=== PATIENT | male | born 1985 | race Caucasian/White ===

== ENCOUNTER 2018-02-20 14:42 | Inpatient (IN) ==
[2018-02-20] MEDS ORDERED: PROCHLORPERAZINE 10 MG/2 ML INJECTION IVP ONE (15:08)
[2018-02-20] MEDS ORDERED: MORPHINE SULFATE 4mg INJECTION IVP ONE (15:08)
[2018-02-20] MEDS ORDERED: NS 1,000 ML IV ONE (15:08)
--- OUTSIDE RECORDS SUMMARY | 2018-02-20 15:23 | External Medical Summary | Referral Summary ---
:1985 Author Organization [facility] [address] [place] [address] Care Team Providers Name Role Phone Erik Donahue Primary Care Physician Encounter [facility] [id number] Date(s): 05/29/15 - 05/29/15 [facility] [address] [place] [id number]- Discharge Disposition: 01-Home or Self Care Attending Physician: Erik Donahue MD Admitting Physician: Erik Donahue MD Vital Signs No data available for this section Problem List Condition Effective Dates Status Health Status Informant Autism(Confirmed) Active Dental caries(Confirmed) Active Mental retardation(Confirmed) Active Allergies, Adverse Reactions, Alerts No Known Allergies Medications No Known Medications Results No data available for this section Immunizations Vaccine Date Refusal Reason diphtheria/pertussis, acel/tetanus ped 01/09/03 Procedures No data available for this section Social History Social History Type Response Smoking Status Never smoker Assessment and Plan Extracted from: Title: Ambulatory Patient Education Author: Erik Donahue MD Date: Home Health Care Cellulitis Cellulitis is an infection of the skin and the tissue beneath it. The infected area is usually red and tender. Cellulitis occurs most often in the arms and lower legs. CAUSES Cellulitis is caused by bacteria that enter the skin through cracks or cuts in the skin. The most common types of bacteria that cause cellulitis are staphylococci and streptococci. SIGNS AND SYMPTOMS Redness and warmth. Swelling. Tenderness or pain. Fever. DIAGNOSIS Your health care provider can usually determine what is wrong based on a physical exam. Blood tests may also be done. TREATMENT Treatment usually involves taking an antibiotic medicine. HOME CARE INSTRUCTIONS Take your antibiotic medicine as directed by your health care provider. Finish the antibiotic even if you start to feel better. Keep the infected arm or leg elevated to reduce swelling. Apply a warm cloth to the affected area up to 4 times per day to relieve pain. Take medicines only as directed by your health care provider. Keep all follow-up visits as directed by your health care provider. SEEK MEDICAL CARE IF: You notice red streaks coming from the infected area. Your red area gets larger or turns dark in color. Your bone or joint underneath the infected area becomes painful after the skin has healed. Your infection returns in the same area or another area. You notice a swollen bump in the infected area. You develop new symptoms. You have a fever. SEEK IMMEDIATE MEDICAL CARE IF: You feel very sleepy. You develop vomiting or diarrhea. You have a general ill feeling (malaise) with muscle aches and pains. MAKE SURE YOU: Understand these instructions. Will watch your condition. Will get help right away if you are not doing well or get worse. Document Released: 06/01/2006 Document Revised: 01/06/2015 Document Reviewed: 11/06/2012 [facility] Patient Information 2015 [facility]. This information is not intended to replace advice given to you by your health care provider. Make sure you discuss any questions you have with your health care provider. No follow up information was provided. Extracted from: Title: Office Visit Note Author: Erik Donahue MD Date: 05/29/15 Assessment/Plan Cellulitis Keflex 500mg po qid for ten days. The patient has family members present who are agreeable with today's plan and have no additional concerns or requests. Mom here. Ingrown toenail To Dr. MOULTON for evalation and consideration of surgery. Mental retardation This issue is stable and appropriate refills, lab, and f/ u have been discussed.
--- OUTSIDE RECORDS SUMMARY | 2018-02-20 15:23 | External Medical Summary | Referral Summary ---
:1985 Author Organization [facility] [address] [place] [address] Care Team Providers Name Role Phone Erik Donahue Primary Care Physician Encounter VC Date(s): 01/01/15 - 01/01/15 [facility] [address] [place] [address]- Discharge Diagnosis: Mental retardation Discharge Diagnosis: General medical exam Discharge Diagnosis: Dental caries Discharge Diagnosis: Autism Discharge Disposition: 01-Home or Self Care Attending [...] Patient Education Author: Erik Donahue MD Date: Dentistry Dental Caries Dental caries (also called tooth decay) is the most common oral disease. It can occur at any age, but is more common in children and young adults. HOW DENTAL CARIES DEVELOPS The process of decay begins when bacteria and foods (particularly sugars and starches) combine in your mouth to produce plaque. Plaque is a substance that sticks to the hard, outer surface of a tooth (e namel ). The bacteria in plaque produce acids that attack enamel. These acids may also attack the root surface of a tooth (cementum ) if it is exposed. Repeated attacks dissolve these surfaces and creat e holes in the tooth (cavities ). If left untreated, the acids destroy the other layers of the tooth. RISK FACTORS Frequent sipping of sugary beverages. Frequent snacking on sugary and starchy foods, especially those that easily get stuck in the teeth. Poor oral hygiene. Dry mouth. Substance abuse such as methamphetamine abuse. Broken or poor-fitting dental restorations. Eating disorders. Gastroesophageal reflux disease (GERD). Certain radiation treatments to the head and neck. SYMPTOMS In the early stages of dental caries, symptoms are seldom present. Sometimes white, chalky areas may be seen on the enamel or other tooth layers. In later stages, symptoms may include: Pits and holes on the enamel. Toothache after sweet, hot, or cold foods or drinks are consumed. Pain around the tooth. Swelling around the tooth. DIAGNOSIS Most of the time, dental caries is detected during a regular dental checkup. A diagnosis is made after a thorough medical and dental history is taken and the surfaces of your teeth are checked for signs of dental caries. Sometimes special instruments, such as lasers, are used to check for dental caries. Dental X-ray exams may be taken so that areas not visible to the eye (such as between the contact a reas of the teeth) can be checked for cavities. TREATMENT If dental caries is in its early stages, it may be reversed with a fluoride treatment or an application of a remineralizing agent at the dental office. Thorough brushing and flossing at home is needed t o aid these treatments. If it is in its later stages, treatment depends on the location and extent of tooth destruction: If a small area of the tooth has been destroyed, the destroyed area will be removed and cavities will be filled with a material such as gold, silver amalgam, or composite resin. If a large area of the tooth has been destroyed, the destroyed area will be removed and a cap (crown ) will be fitted over the remaining tooth structure. If the center part of the tooth (pulp ) is affected, a procedure called a root canal will be needed before a filling or crown can be placed. If most of the tooth has been destroyed, the tooth may need to be pulled ( extracted ). HOME CARE INSTRUCTIONS You can prevent, stop, or reverse dental caries at home by practicing good oral hygiene. Good oral hygiene includes: Thoroughly cleaning your teeth at least twice a day with a toothbrush and dental floss. Using a fluoride toothpaste. A fluoride mouth rinse may also be used if recommended by your dentist or health care provider. Restricting the amount of sugary and starchy foods and sugary liquids you consume. Avoiding frequent snacking on these foods and sipping of these liquids. Keeping regular visits with a dentist for checkups and cleanings. PREVENTION Practice good oral hygiene. Consider a dental sealant. A dental sealant is a coating material that is applied by your dentist to the pits and grooves of teeth. The sealant prevents food from being trapped in them. It may protect the teeth for several years. Ask about fluoride supplements if you live in a community without fluorinated water or with water that has a low fluoride content. Use fluoride supplements as directed by your dentist or health care provider. Allow fluoride varnish applications to teeth if directed by your dentist or health care provider. Document Released: 05/14/2003 Document Revised: 04/24/2014 Document Reviewed: 08/24/2013 [facility] Patient Information 2014 [employer] No follow up information was provided. Extracted from: Title: Office Visit Note Author: Erik Donahue MD Date: 01/01/15 Assessment/Plan Autism This issue is stable and appropriate refills, lab, and f/u have been discussed. No meds at this time. Declines consult. Mom here. No seizures. Dental caries Considerdental exam when family is willing. Mental retardation This issue is stable and appropriate refills, lab, and f/ u have been discussed. Recommended a Tdap and declined by family due to patient noncompliance/inability to understand an d comply. They would expect him to physically resist a tdap or gu exam.
--- OUTSIDE RECORDS SUMMARY | 2018-02-20 15:23 | External Medical Summary | Referral Summary ---
:1985 Author Organization [facility] [address] [place] [address] Care Team Providers Name Role Phone Erik Donahue Primary Care Physician Encounter VC Date(s): 03/25/15 - 03/25/15 [facility] [address] [place] [phone]- Discharge Disposition: 01-Home or Self Care Attending Physician: Erik Donahue MD Admitting Physician: Erik Donahue MD Vital Signs No data available for this section Problem List Condition Effective Dates Status Health Status Informant Autism(Confirmed) Active Dental caries(Confirmed) Active Mental retardation(Confirmed) Active Allergies, Adverse Reactions, Alerts No Known Allergies Medications No data available for this section Results No data available for this section Immunizations Vaccine Date Refusal Reason diphtheria/pertussis, acel/tetanus ped 01/09/03 Procedures No data available for this section Social History Social History Type Response Smoking Status Never smoker Assessment and Plan Extracted from: Title: Ambulatory Patient Education Author: Erik Donahue MD Date: [facility] Cellulitis Cellulitis is an infection of the skin and the tissue beneath it. The infected area is usually red and tender. Cellulitis occurs most often in the arms and lower legs. CAUSES Cellulitis is caused by bacteria that enter the skin through cracks or cuts in the skin. The most common types of bacteria that cause cellulitis are Staphylococcus and Streptococcus. SYMPTOMS Redness and warmth. Swelling. Tenderness or pain. Fever. DIAGNOSIS Your caregiver can usually determine what is wrong based on a physical exam. Blood tests may also be done. TREATMENT Treatment usually involves taking an antibiotic medicine. HOME CARE INSTRUCTIONS Take your antibiotics as directed. Finish them even if you start to feel better. Keep the infected arm or leg elevated to reduce swelling. Apply a warm cloth to the affected area up to 4 times per day to relieve pain. Only take mpte-[id number]-[id number] or prescription medicines for pain, discomfort , or fever as directed by your caregiver. Keep all follow-up appointments as directed by your caregiver. SEEK MEDICAL CARE IF: You notice red streaks coming from the infected area. Your red area gets larger or turns dark in color. Your bone or joint underneath the infected area becomes painful after the skin has healed. Your infection returns in the same area or another area. You notice a swollen bump in the infected area. You develop new symptoms. SEEK IMMEDIATE MEDICAL CARE IF: You have a fever. You feel very sleepy. You develop vomiting or diarrhea. You have a general ill feeling (malaise ) with muscle aches and pains. MAKE SURE YOU: Understand these instructions. Will watch your condition. Will get help right away if you are not doing well or get worse. Document Released: 06/01/2006 Document Revised: 02/20/2013 Document Reviewed: 11/06/[address] [facility] Patient Information 2014 [employer]. Ingrown Toenail An ingrown toenail occurs when the sharp edge of your toenail grows into the skin. Causes of ingrown toenails include toenails clipped too far back or poorly fitting shoes. Activities involving sudden s tops (basketball, tennis) causing "toe jamming" may lead to an ingrown nail. HOME CARE INSTRUCTIONS Soak the whole foot in warm soapy water for 20 minutes, 3 times per day. You may lift the edge of the nail away from the sore skin by wedging a small piece of cotton under the corner of the nail. Be careful not to dig ( traumatize) and cause more injury to the area. Wear shoes that fit well. While the ingrown nail is causing problems, sandals may be beneficial. Trim your toenails regularly and carefully. Cut your toenails straight across, not in a curve. This will prevent injury to the skin at the corners of the toenail. Keep your feet clean and dry. Crutches may be helpful early in treatment if walking is painful. Antibiotics, if prescribed, should be taken as directed. Return for a wound check in 2 days or as directed. Only take clso-vki-rduuubi or prescription medicines for pain, discomfort , or fever as directed by your caregiver. SEEK IMMEDIATE MEDICAL CARE IF: You have a fever. You have increasing pain, redness, swelling, or heat at the wound site. Your toe is not better in 7 days. If conservative treatment is not successful, surgical removal of a portion or all of the nail may be necessary. MAKE SURE YOU: Understand these instructions. Will watch your condition. Will get help right away if you are not doing well or get worse. Document Released: 08/19/2001 Document Revised: 11/13/2012 Document Reviewed: 08/13/2009 [facility] Patient Information 2014 [employer] [facility]. No follow up information was provided. Extracted from: Title: Office Visit Note Author: Erik Donahue MD Date: 03/25/15 Assessment/Plan Cellulitis Amox 500mg po tid for ten days. To Podiatry when willing. The patient has family members present who are agreeable with today's plan and have no additional concerns or requests. He rewith his mom. Discussed otc options for them to try. Likely will need podiatry and day surgery do to MR and inability to understand and comply. Ingrown right big toenail See above. Orders: amoxicillin, 500 mg 1 caps, Oral, TID, X 10 days, # 30 caps, 0 Refill (s), Pharmacy: [id number], 1 caps Oral TID,x10 days
--- OUTSIDE RECORDS SUMMARY | 2018-02-20 15:24 | External Medical Summary | Referral Summary ---
:1985 Author Organization [facility] [address] [place] [address] Care Team Providers Name Role Phone Erik Donahue Primary Care Physician Encounter VC Date(s): 02/28/17 - 02/28/17 [facility] [address] [place] [phone] [place] Discharge Diagnosis: Dental caries Discharge Diagnosis: Mental retardation Discharge Disposition: 01-Home or Self Care Attending Physician: Erik Donahue MD Admitting Physician: Erik Donahue MD Vital Signs Most recent to oldest [Reference Range]: 1 Blood Pressure [90-140/60-90 mmHg] 110/70 mmHg (02/28/17 9:20 AM) Problem List Condition Effective Dates Status Health Status Informant Autism(Confirmed) Active Congenital nevus of trunk(Confirmed) Active Dental caries(Confirmed) Active Mental retardation(Confirmed) Active Allergies, Adverse Reactions, Alerts No Known Allergies Medications Flagyl 500 mg oral tablet 500 mg 1 tabs, Oral, q12hr, X 10 days, # 20 tabs, 0 Refill(s), [id number], 1 tabs Oral q12hr,x10 days Start Date: 02/28/17 Stop Date: 03/10/17 Status: OrderedMisc Medication See Instructions, Currently on a/b for teeth, 0 Refill(s) Start Date: 09/30/16 Status: Ordered Results Hematology Most recent to oldest [Reference Range]: 1 WBC [4.8-10.8 10*3/uL] 7.2 10*3/uL (02/28/17 11:37 AM) RBC [4.60-6.20] 5.45 (02/28/17 11:37 AM) Hgb [14.0-18.0 gm/dL] 14.7 gm/dL (02/28/17 11:37 AM) Hct [42.0-52.0 %] 43.0 % (02/28/17:37 AM) MCV [82.0-99.0 fL] 78.9 fL *LOW* (02/28/17:37 AM) MCH [27.0-32.0 pg] 27.0 pg (02/28/17:37 AM) MCHC [32.0-36.0 gm/dL] 34.2 gm/dL (02/28/17 11:37 AM) RDW [11.5-14.5 %] 13.8 % (02/28/17:37 AM) Platelet [150-400 10*3/uL] 210 10*3/uL (02/28/17 11:37 AM) MPV [8.8-14.8 fL] 10.7 fL (02/28/17:37 AM) Immature Granulocytes [0.0-1.0 %] 0.8 % (02/28/17:37 AM) Neutrophils [51-75 %] 64 % (02/28/17:37 AM) Lymphocytes [20-46 %] 20 % (02/28/17:37 AM) Monocytes [4-11 %] 12 % *HI* (02/28/17:37 AM) Eosinophils [0-4 %] 2 % (02/28/17:37 AM) Basophils [0-2 %] 0 % (02/28/17:37 AM) Neutro Absolute [1.90-7.00] 4.65 (02/28/17 11:37 AM) Lymph Absolute [0.80-3.30] 1.48 (02/28/17 11:37 AM) [place] Absolute [0.30-1.00] 0.89 (02/28/17 11:37 AM) Eos Absolute [0.00-0.50] 0.13 (02/28/17 11:37 AM) Baso Absolute [0.00-0.20] 0.03 (02/28/17 11:37 AM) Chemistry Most recent to oldest [Reference Range]: 1 Sodium Lvl [135-144 mEq/L] 141 mEq/L (02/28/17 11:37 AM) Potassium Lvl [3.5-5.2 mEq/L] 3.4 mEq/L *LOW* (02/28/17 11:37 AM) Chloride [99-111 mEq/L] 99 mEq/L (02/28/17 11:37 AM) CO2 [23-31 mEq/L] 32 mEq/L *HI* (02/28/17 11:37 AM) AGAP [3-20 mEq/L] 10 mEq/L (02/28/17 11:37 AM) BUN [9-21 mg/dL] 12 mg/dL (02/28/17 11:37 AM) Glucose Lvl [70-99 mg/dL] 92 mg/dL (02/28/17 11:37 AM) Creatinine Lvl [0.72-1.25 mg/dL] 0.78 mg/dL (02/28/17 11:37 AM) eGFR [>60 mL/min] >60 mL/min 1 (02/28/17 11:37 AM) Calcium Lvl [8.4-10.2 mg/dL] 9.4 mg/dL (02/28/17 11:37 AM) Albumin Lvl [3.5-5.0 gm/dL] 4.1 gm/dL (02/28/17 11:37 AM) Total Protein [6.1-7.7 gm/dL] 6.5 gm/dL (02/28/17 11:37 AM) Globulin [1.8-4.0 gm/dL] 2.4 gm/dL (02/28/17 11:37 AM) ALT [0-55 U/L] 11 U/L (02/28/17 11:37 AM) AST [5-34 U/L] 14 U/L (02/28/17 11:37 AM) Alk Phos [40-150 U/L] 69 U/L (02/28/17 11:37 AM) Bili Total [0.2-1.2 mg/dL] 0.7 mg/dL (02/28/17 11:37 AM) 1Result Comment: Multiply eGFR results by 1.21 for race. Immunizations Given and Recorded Vaccine Date Status Refusal Reason diphtheria/pertussis, acel/tetanus ped 01/09/03 Recorded Procedures No data available for this section Social History Social History Type Response Smoking Status Never smoker Assessment and Plan Extracted from: Title: Ambulatory Patient Education Author: Erik Donahue MD Date: Allergy Allergies An allergy is an abnormal reaction to a substance by the body's defense system (immune system). Allergies can develop at any age. WHAT CAUSES ALLERGIES? An allergic reaction happens when the immune system mistakenly reacts to a normally harmless substance, called an allergen, as if it were harmful. The immune system releases antibodies to fight the subs tance. Antibodies eventually release a chemical called histamine into the bloodstream. The release of histamine is meant to protect the body from infection, but it also causes discomfort. An allergic reaction can be triggered by: Eating an allergen. Inhaling an allergen. Touching an allergen. WHAT TYPES OF ALLERGIES ARE THERE? There are many types of allergies. Common types include: Seasonal allergies. People with this type of allergy are usually allergic to substances that are only present during certain seasons, such as molds and pollens. Food allergies. Drug allergies. Insect allergies. Animal dander allergies. WHAT ARE SYMPTOMS OF ALLERGIES? Possible allergy symptoms include: Swelling of the lips, face, tongue, mouth, or throat. Sneezing, coughing, or wheezing. Nasal congestion. Tingling in the mouth. Rash. Itching. Itchy, red, swollen areas of skin (hives). Watery eyes. Vomiting. Diarrhea. Dizziness. Lightheadedness. Fainting. Trouble breathing or swallowing. Chest tightness. Rapid heartbeat. HOW ARE ALLERGIES DIAGNOSED? Allergies are diagnosed with a medical and family history and one or more of the following: Skin tests. Blood tests. A food diary. A food diary is a record of all the foods and drinks you have in a day and of all the symptoms you experience. The results of an elimination diet. An elimination diet involves eliminating foods from your diet and then adding them back in one by one to find out if a certain food causes an allergic reaction. HOW ARE ALLERGIES TREATED? There is no cure for allergies, but allergic reactions can be treated with medicine. Severe reactions usually need to be treated at a hospital. HOW CAN REACTIONS BE PREVENTED? The best way to prevent an allergic reaction is by avoiding the substance you are allergic to. Allergy shots and medicines can also help prevent reactions in some cases. People with severe allergic reac tions may be able to prevent a life-threatening reaction called anaphylaxis with a medicine given right after exposure to the allergen. This information is not intended to replace advice given to you by your health care provider. Make sure you discuss any questions you have with your health care provider. Document Released: 11/15/2003 Document Revised: 09/12/2015 Document Reviewed: 06/03/2015 [employer] Patient Education 2016 [employer] No follow up information was provided. Extracted from: Title: Office Visit Note Author: Erik Donahue MD Date: 02/28/17 Assessment/Plan Dental caries Saw the dentist and has improved. Diarrhea Cause unclear. Get [facility] records. Lab and stool studies pending. Trial of flagyl 500mg po bid for ten daysfor possible cdiff? The patient has family members present who are agreeable with today's plan and have no additional concerns or requests. GM agreeable. To [facility] if worse in any way. Ordered: C diff Battery CBC w/ Differential Comprehensive Metabolic Panel Ova and Parasites Stool Culture w/ Campy and Shigatoxin Urinalysis with Culture if Indicated Fever See above. Ordered: C diff Battery CBC w/ Differential Comprehensive Metabolic Panel Ova and Parasites Stool Culture w/ Campy and Shigatoxin Urinalysis with Culture if Indicated Mental retardation This issue was reviewed, appears stable, and current therapy continued except as mentioned. Appropriate lab was reviewed from the most recent appropriate entry and lab was ordered if needed in the c darvin/nursing orders, and follow up recommended generally in 90 days and no later then six months.
--- OUTSIDE RECORDS SUMMARY | 2018-02-20 15:24 | External Medical Summary | Referral Summary ---
:1985 Author Organization Via [facility] [address] [place] [address] Care Team Providers Name Role Phone Erik Donahue Primary Care Physician Encounter [facility] Date(s): 03/11/17 - 03/11/17 [facility] [address] [place] [id number] [place] Discharge Diagnosis: Autism Discharge Diagnosis: Acute UTI Discharge Diagnosis: Kidney stones Discharge Diagnosis: Dental caries Discharge Diagnosis: Acute diarrhea Discharge Diagnosis: Mental retardation Discharge Disposition: 01-Home or Self Care Attending Physician: Erik Donahue MD Admitting Physician: Erik Donahue MD Vital Signs Most recent to oldest [Reference Range]: 1 Blood Pressure [90-140/60-90 mmHg] 120/80 mmHg (03/11/17 3:47 PM) Problem List Condition Effective Dates Status Health Status Informant Autism(Confirmed) Active Congenital nevus of trunk(Confirmed) Active Dental caries(Confirmed) Active Kidney stones(Confirmed) Active Mental retardation(Confirmed) Active Allergies, Adverse Reactions, Alerts No Known Allergies Medications Misc Medication See Instructions, Currently on a/b for teeth, 0 Refill(s) Start Date: 09/30/16 Status: Ordered Results No data available for this section Immunizations Given and Recorded Vaccine Date Status [...] 11/15/2003 Document Revised: 09/12/2015 Document Reviewed: 06/03/2015 [employer] Interactive Patient Education 2016 [employer] No follow up information was provided. Extracted from: Title: Office Visit Note Author: Erik Donahue MD Date: 03/11/17 Assessment/Plan Acute diarrhea The patient's issue is nearly or completely resolved. There is no further issues or testing desired by them at this time. The patient has family members present who are agreeable with today's plan and have no additional concerns or requests. Parents are both here and say it is resolved. Acute UTI The patient's issue is nearly or completely resolved. There is no further issues or testing desired by them at this time. No urinary issues at this time. Autism This issue was reviewed, appears stable, and current therapy continued except as mentioned. Appropriate lab was reviewed from the most recent appropriate entry and lab was ordered if needed in the c darvin/nursing orders, and follow up recommended generally in 90 days and no later then six months. Dental caries The patient's issue is nearly or completely resolved. There is no further issues or testing desired by them at this time. Kidney stones The patient's issue is nearly or completely resolved. There is no further issues or testing desired by them at this time. KUB pending. Declined UA. Hydration discussed. Consult discussed and declined. He is nonverbal and without symptoms at this time and family declines further intervention. Ordered: XR Abdomen AP Mental retardation This issue was reviewed, appears stable, and current therapy continued except as mentioned. Appropriate lab was reviewed from the most recent appropriate entry and lab was ordered if needed in the c darvin/nursing orders, and follow up recommended generally in 90 days and no later then six months.
--- OUTSIDE RECORDS SUMMARY | 2018-02-20 15:24 | External Medical Summary | Referral Summary ---
:1985 Author Care Team Providers Name Role Phone Erik Donahue Primary Care Physician Encounter [facility] [id number] Date(s): 01/01/15 - 01/01/15 Via N[facility] Raman, [place], Family Medicine [address] [place] [address] [place] [id number] Discharge Diagnosis: Mental retardation Discharge Diagnosis: General medical exam Discharge Diagnosis: Dental caries Discharge Diagnosis: Autism Discharge Disposition: Home or Self Care Attending Physician: Erik Donahue [...] 05/14/2003 Document Revised: 04/24/2014 Document Reviewed: 08/24/2013 [facility] Patient Information 2014 [employer]. No follow up information was provided. Extracted [...]
--- OUTSIDE RECORDS SUMMARY | 2018-02-20 15:24 | External Medical Summary | Continuity of Care Document ---
:1985 Author Organization Via [facility] Allergies Active Description Code Type Severity Reaction Onset Reported/ Identified Relationship Clinical to Patient Status Yes No Known Aller Unknown N/A 02/14/2012 Allergies gy Yes No Known No Aller N/A N/A 02/14/2012 Allergies Known gy Aller gies Yes No Known NKMA N/A N/A 01/01/2015 Allergies Medications Medication Packaging Start Date Stop Date Route Dosage Sig 1 caps 03/25/2015 Oral 500 mg amoxicillin(mira 5 500 xicillin 500 mg mg=1 oral capsule) caps, Oral, TID, for 10 days, 30 caps, 0 Refill(s ) 1 caps 05/29/2015 Oral 500 mg cephalexin(Kefl 5 500 ex 500 mg oral mg=1 capsule) caps, Oral, QID, for 10 days, 40 caps, 0 Refill(s ) 1 francisco 10/06/2016 Topical mupirocin 7 1 topical(Bactrob francisco, an 2% Topical, topical cream) TID, for 10 days, 15 g, 0 Refill(s ) 10/06/2016 IntraMuscular 25 mg diphenhydrAMINE 7 25 (diphenhydrAMIN mg, E) IntraMus cular, Once 10/06/2016 IntraMuscular 5 mg diazepam(diazep 7 5 mg, am) IntraMus cular, Once 1 tabs 02/28/2017 Oral 500 mg metroNIDAZOLE(F 7 500 lagyl 500 mg mg=1 oral tablet) tabs, Oral, q12hr, for 10 days, 20 tabs, 0 Refill(s ) No 02/20/2018 home meds Problems Date Dx Attending Type Code Diagnosis Diagnosed By Coded 09/30/2016 Erik Donahue Final F79 Unspecified W intellectual disabilities 09/30/2016 Erik Donahue Final F84.0 Autistic disorder W 09/30/2016 Erik Donahue Final K02.9 Dental caries, W unspecified 09/30/2016 Erik Donahue Final 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 09/30/2016 Erik Donahue Final R23.8 Other skin changes W 09/30/2016 Erik Donahue Final Z91.89 Other specified W personal risk factors, not elsewhere classified 10/06/2016 Vijaya Final 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, Hetal M unspecified 10/06/2016 Vijaya Final F79 Unspecified Hetal M intellectual disabilities 10/06/2016 Vijaya Final F84.0 Autistic disorder Hetal M 10/06/2016 Vijaya Final 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 10/06/2016 Vijaya Final R23.8 Other skin changes Hetal M 11/19/2016 Erik Donahue F79 Unspecified W intellectual disabilities 11/19/2016 Erik Donahue F84.0 Autistic disorder W 11/19/2016 Erik Donahue Final K02.9 Dental caries, W unspecified 11/19/2016 Erik Donahue Final Z00.00 Encounter for W general adult medical examination without abnormal findings 02/28/2017 Erik Donahue F79 Unspecified W intellectual disabilities 02/28/2017 Erik Donahue Final K02.9 Dental caries, W unspecified 03/11/2017 Erik Donahue F79 Unspecified W intellectual disabilities 03/11/2017 Erik Donahue F84.0 Autistic disorder W 03/11/2017 Erik Donahue K02.9 Dental caries, W unspecified 03/11/2017 Erik Donahue Final N20.0 Calculus of kidney W 03/11/2017 Erik Donahue Final N39.0 Urinary tract W infection, site not specified 03/11/2017 Erik Donahue Final R19.7 Diarrhea, W unspecified Procedures Code [place] [address] Office or other 09/30/2016 outpatient visit for the evaluation and management of an established patient, which requires at least 2 of these 3 handley components: A detailed history; A detailed examination; Medical d 35140 Therapeutic, 10/06/2016 prophylactic, or diagnostic injection (specify substance or drug); subcutaneous or intramuscular 98759 Office or other 10/06/2016 outpatient visit for the evaluation and management of an established patient, which requires at least 2 of these 3 handley components: A detailed history; A detailed examination; Medical d 21810 Office or other 11/19/2016 outpatient visit for the evaluation and management of an established patient, which requires at least 2 of these 3 handley components: A detailed history; A detailed examination; Medical d 34941 Office or other 02/28/2017 outpatient visit for the evaluation and management of an established patient, which requires at least 2 of these 3 handley components: A detailed history; A detailed examination; Medical d 63506 Radiologic 03/11/2017 examination, abdomen; single anteroposterior view 10414 Office or other 03/11/2017 outpatient visit for the evaluation and management of an established patient, which requires at least 2 of these 3 handley components: A detailed history; A detailed examination; Medical d Results Test Result Range PTT/PT (INR) - 10/06/16 10:03 INR 1.0 NA 0.8-1.2 Prothrombin Time Venous seconds CBC With Platelet and Differential - 10/06/16 10:03 Absolute Basophils 0.02 10*3/uL 0.00-0.20 Absolute Eosinophils 0.10 10*3/uL 0.00-0.50 Absolute Lymphocytes 1.42 10*3/uL 0.80-3.30 Absolute Monocytes 0.55 10*3/uL 0.30-1.00 Absolute Neutrophils 2.43 10*3/uL 1.90-7.00 Basophils 0 % 0-2 Eosinophils 2 % 0-4 HCT 43.0 % 42.0-52.0 HGB 13.7 g/dL 14.0-18.0 Immature Granulocytes 0.4 % 0.0-1.0 Lymphocytes 31 % 20-46 MCH 25.0 pg 27.0-32.0 MCHC 31.9 g/dL 32.0-36.0 MCV 78.6 fL 82.0-99.0 Monocytes 12 % 4-11 MPV 10.7 fL 8.8-14.8 Neutrophils 54 % 51-75 Platelet Count 205 K/uL 150-400 RBC 5.47 10*6/uL 4.60-6.20 RDW 13.3 % 11.5-14.5 WBC 4.5 K/uL 4.8-10.8 Comprehensive Metabolic Panel (CMP) - 10/06/16 10:03 Albumin 4.6 g/dL 3.5-5.0 Alkaline Phosphatase 75 U/L 40-150 ALT (SGPT) 16 U/L 0-55 Anion Gap 10 NA 3-20 AST (SGOT) 20 U/L 5-34 Bilirubin Total 0.4 mg/dL 0.2-1.2 BUN 9 mg/dL 9-21 Calcium 9.6 mg/dL 8.9-10.5 Chloride 109 mEq/L 99-111 CO2 25 mEq/L 23-31 Creatinine 0.77 mg/dL 0.72-1.25 Globulin 2.2 g/dL 1.8-4.0 Glucose 76 mg/dL 70-99 Potassium 3.9 mEq/L 3.5-5.2 Protein 6.8 g/dL 6.1-7.7 Sodium 144 mEq/L 135-144 eGFR - 10/06/16 10:03 eGFR >60 mL/min >60 TSH with Reflex Free T4 - 10/06/16 10:03 TSH with Reflex Free T4 1.70 uIU/mL 0.35-4.94 PTT/PT (INR) - 10/06/16 10:03 INR 1.0 NA 0.8-1.2 Prothrombin Time Venous seconds CBC With Platelet and Differential - 10/06/16 10:03 Absolute Basophils 0.02 10*3/uL 0.00-0.20 Absolute Eosinophils 0.10 10*3/uL 0.00-0.50 Absolute Lymphocytes 1.42 10*3/uL 0.80-3.30 Absolute Monocytes 0.55 10*3/uL 0.30-1.00 Absolute Neutrophils 2.43 10*3/uL 1.90-7.00 Basophils 0 % 0-2 Eosinophils 2 % 0-4 HCT 43.0 % 42.0-52.0 HGB 13.7 g/dL 14.0-18.0 Immature Granulocytes 0.4 % 0.0-1.0 Lymphocytes 31 % 20-46 MCH 25.0 pg 27.0-32.0 MCHC 31.9 g/dL 32.0-36.0 MCV 78.6 fL 82.0-99.0 Monocytes 12 % 4-11 MPV 10.7 fL 8.8-14.8 Neutrophils 54 % 51-75 Platelet Count 205 K/uL 150-400 RBC 5.47 10*6/uL 4.60-6.20 RDW 13.3 % 11.5-14.5 WBC 4.5 K/uL 4.8-10.8 Comprehensive Metabolic Panel (CMP) - 10/06/16 10:03 Albumin 4.6 g/dL 3.5-5.0 Alkaline Phosphatase 75 U/L 40-150 ALT (SGPT) 16 U/L 0-55 Anion Gap 10 NA 3-20 AST (SGOT) 20 U/L 5-34 Bilirubin Total 0.4 mg/dL 0.2-1.2 BUN 9 mg/dL 9-21 Calcium 9.6 mg/dL 8.9-10.5 Chloride 109 mEq/L 99-111 CO2 25 mEq/L 23-31 Creatinine 0.77 mg/dL 0.72-1.25 Globulin 2.2 g/dL 1.8-4.0 Glucose 76 mg/dL 70-99 Potassium 3.9 mEq/L 3.5-5.2 Protein 6.8 g/dL 6.1-7.7 Sodium 144 mEq/L 135-144 eGFR - 10/06/16 10:03 eGFR >60 mL/min >60 TSH with Reflex Free T4 - 10/06/16 10:03 TSH with Reflex Free T4 1.70 uIU/mL 0.35-4.94 CBC With Platelet and Differential - 02/28/17 11:37 Absolute Basophils 0.03 10*3/uL 0.00-0.20 Absolute Eosinophils 0.13 10*3/uL 0.00-0.50 Absolute Lymphocytes 1.48 10*3/uL 0.80-3.30 Absolute Monocytes 0.89 10*3/uL 0.30-1.00 Absolute Neutrophils 4.65 10*3/uL 1.90-7.00 Basophils 0 % 0-2 Eosinophils 2 % 0-4 HCT 43.0 % 42.0-52.0 HGB 14.7 g/dL 14.0-18.0 Immature Granulocytes 0.8 % 0.0-1.0 Lymphocytes 20 % 20-46 MCH 27.0 pg 27.0-32.0 MCHC 34.2 g/dL 32.0-36.0 MCV 78.9 fL 82.0-99.0 Monocytes 12 % 4-11 MPV 10.7 fL 8.8-14.8 Neutrophils 64 % 51-75 Platelet Count 210 K/uL 150-400 RBC 5.45 10*6/uL 4.60-6.20 RDW 13.8 % 11.5-14.5 WBC 7.2 K/uL 4.8-10.8 Comprehensive Metabolic Panel (CMP) - 02/28/17 11:37 Albumin 4.1 g/dL 3.5-5.0 Alkaline Phosphatase 69 U/L 40-150 ALT (SGPT) 11 U/L 0-55 Anion Gap 10 mEq/L 3-20 AST (SGOT) 14 U/L 5-34 Bilirubin Total 0.7 mg/dL 0.2-1.2 BUN 12 mg/dL 9-21 Calcium 9.4 mg/dL 8.4-10.2 Chloride 99 mEq/L 99-111 CO2 32 mEq/L 23-31 Creatinine 0.78 mg/dL 0.72-1.25 Globulin 2.4 g/dL 1.8-4.0 Glucose 92 mg/dL 70-99 Potassium 3.4 mEq/L 3.5-5.2 Protein 6.5 g/dL 6.1-7.7 Sodium 141 mEq/L 135-144 eGFR - 02/28/17 11:37 eGFR >60 mL/min >60 CBC With Platelet and Differential - 02/28/17 11:37 Absolute Basophils 0.03 10*3/uL 0.00-0.20 Absolute Eosinophils 0.13 10*3/uL 0.00-0.50 Absolute Lymphocytes 1.48 10*3/uL 0.80-3.30 Absolute Monocytes 0.89 10*3/uL 0.30-1.00 Absolute Neutrophils 4.65 10*3/uL 1.90-7.00 Basophils 0 % 0-2 Eosinophils 2 % 0-4 HCT 43.0 % 42.0-52.0 HGB 14.7 g/dL 14.0-18.0 Immature Granulocytes 0.8 % 0.0-1.0 Lymphocytes 20 % 20-46 MCH 27.0 pg 27.0-32.0 MCHC 34.2 g/dL 32.0-36.0 MCV 78.9 fL 82.0-99.0 Monocytes 12 % 4-11 MPV 10.7 fL 8.8-14.8 Neutrophils 64 % 51-75 Platelet Count 210 K/uL 150-400 RBC 5.45 10*6/uL 4.60-6.20 RDW 13.8 % 11.5-14.5 WBC 7.2 K/uL 4.8-10.8 Comprehensive Metabolic Panel (CMP) - 02/28/17 11:37 Albumin 4.1 g/dL 3.5-5.0 Alkaline Phosphatase 69 U/L 40-150 ALT (SGPT) 11 U/L 0-55 Anion Gap 10 mEq/L 3-20 AST (SGOT) 14 U/L 5-34 Bilirubin Total 0.7 mg/dL 0.2-1.2 BUN 12 mg/dL 9-21 Calcium 9.4 mg/dL 8.4-10.2 Chloride 99 mEq/L 99-111 CO2 32 mEq/L 23-31 Creatinine 0.78 mg/dL 0.72-1.25 Globulin 2.4 g/dL 1.8-4.0 Glucose 92 mg/dL 70-99 Potassium 3.4 mEq/L 3.5-5.2 Protein 6.5 g/dL 6.1-7.7 Sodium 141 mEq/L 135-144 eGFR - 02/28/17 11:37 eGFR >60 mL/min >60 Encounters ACCT No. Visit Discharge Status Pt. Type Provider Facility Loc./Unit Complaint Date/Time [id number] 03/11/2017 03/11/2017 DIS Outpatien Martíntra, Via [facility] New FM Recheck 52 15:29:00 23:59:00 rani Garcia kidney Clinic stones [id number] 02/28/2017 02/28/2017 DIS Outpatien Rowan, Via [facility] New FM diarrhea, 76 09:04:00 23:59:00 rani Garcia fever, Clinic runned down [id number] 11/19/2016 11/19/2016 DIS Outpatien Luinstra, Via [facility] New FM dental 48 09:38:00 23:59:00 t Erik Thurman [facility] surgery [facility] clelarance [id number] 10/06/2016 10/06/2016 DIS Outpatien Hughbanks Via [facility] New FM med check 55 08:17:00 23:59:00 t Hetal [facility] [id number] 09/30/2016 09/30/2016 DIS Outpatien Luinstra, Via [facility] New FM bruises and 18 16:05:00 23:59:00 t Erik Thurman [facility] rash Clinic [id number] 05/29/2015 05/29/2015 DIS Outpatien Luinstra, Via [facility] New FM ingrown 72 09:17:00 23:59:00 t Erik Thurman [facility] toenail Clinic [id number] 03/25/2015 03/25/2015 DIS Outpatien Luinstra, Via C New FM ingrown 58 10:23:00 23:59:00 t Erik Thurman [facility] toenail Clinic [id number] 03/11/2017 03/11/2017 DIS Outpatien Luinstra, Via C New FM Recheck 52 15:29:00 23:59:00 t Erik Olman [facility] kidney Clinic stones [id number] 02/28/2017 02/28/2017 DIS Outpatien Luinstra, Via C New FM diarrhea, 76 09:04:00 23:59:00 t Erik Thurman Radha fever, Clinic runned down [id number] 11/19/2016 11/19/2016 DIS Outpatien Luinstra, Via C New FM dental 48 09:38:00 23:59:00 t Erik Thurman [facility] surgery Clinic clelarance [id number] 10/06/2016 10/06/2016 DIS Outpatien [place] Via [facility] New FM med check 55 08:17:00 23:59:00 t Hetal [facility] [id number] 09/30/2016 09/30/2016 DIS Outpatien Luinstra, Via [facility] New FM bruises and 18 16:05:00 23:59:00 t Erik Thurman Radha rash [facility] [id number] 05/29/2015 05/29/2015 DIS Outpatien Luinstra, Via [facility] New FM ingrown 72 09:17:00 23:59:00 t Erik Thurman [facility] toenail Clinic [id number] 03/25/2015 03/25/2015 DIS Outpatien Luinstra, Via [facility] New FM ingrown 58 10:23:00 23:59:00 t Erik Thurman [facility] toenail Clinic [id number] 02/09/2017 02/09/2017 DIS Emergency MAY , ED 13 13:30:00 13:51:00 RUFINA Mcmillan [id number] 09/15/2016 09/15/2016 DIS Emergency [facility] ED 20 12:14:00 14:53:00 , [facility] [id number] 02/20/2018 Document 44 14:59:00 Registrat ion [id number] 03/01/2017 Document 1752 05:17:52 Registrat ion [id number] 10/07/2016 Document 1729 05:17:29 Registrat ion [id number] 06/25/2015 Document 1809 14:18:09 Registrat ion [id number] 06/25/2015 Document 2210 13:22:10 Registrat ion
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
--- OUTSIDE RECORDS SUMMARY | 2018-02-20 15:24 | External Medical Summary | Referral Summary ---
:1985 Author Organization [facility] [place] [address] Care Team Providers Name Role Phone Andreiaana maríaErik Primary Care Physician Encounter VC Date(s): 10/06/16 - 10/06/16 [facility] [place] [address] [place] Discharge Diagnosis: Acute anxiety Discharge Diagnosis: Easy bruising Discharge Diagnosis: Autism Discharge Diagnosis: Folliculitis barbae Discharge Diagnosis: Mental retardation Discharge Disposition: 01-Home or Self Care Attending Physician: Hetal Lilly PA-C Admitting Physician: Hetal Lilly PA-C Vital Signs Most recent to oldest [Reference Range]: 1 Temperature Tympanic [36.6-38.1 degC] 36.1 degC *LOW* (10/06/16 8:19 AM) Peripheral Pulse Rate [60-100 bpm] 95 bpm (10/06/16 8:19 AM) Blood Pressure [90-140/60-90 mmHg] 112/72 mmHg (10/06/16 8:19 AM) SpO2 100 % (10/06/16 8:19 AM) Problem List Condition Effective Dates Status Health Status Informant Autism(Confirmed) Active Congenital nevus of trunk(Confirmed) Active Dental caries(Confirmed) Active Mental retardation(Confirmed) Active Allergies, Adverse Reactions, Alerts No Known Allergies Medications Bactroban 2% topical cream 1 francisco, Topical, TID, X 10 days, # 15 g, 0 Refill(s), [facility]acy: [id number] Start Date: 10/06/16 Stop Date: 10/16/16 Status: OrderedMisc Medication See Instructions, Currently on a/b for teeth, 0 Refill(s) Start Date: 09/30/16 Status: Ordered Results Hematology Most recent to oldest [Reference Range]: 1 WBC [4.8-10.8 10*3/uL] 4.5 10*3/uL *LOW* (10/06/16 10:03 AM) RBC [4.60-6.20] 5.47 (10/06/16 10:03 AM) Hgb [14.0-18.0 gm/dL] 13.7 gm/dL *LOW* (10/06/16 10:03 AM) Hct [42.0-52.0 %] 43.0 % (10/06/16 10:03 AM) MCV [82.0-99.0 fL] 78.6 fL *LOW* (10/06/16 10:03 AM) MCH [27.0-32.0 pg] 25.0 pg *LOW* (10/06/16 10:03 AM) MCHC [32.0-36.0 gm/dL] 31.9 gm/dL *LOW* (10/06/16 10:03 AM) RDW [11.5-14.5 %] 13.3 % (10/06/16 10:03 AM) Platelet [150-400 10*3/uL] 205 10*3/uL (10/06/16 10:03 AM) MPV [8.8-14.8 fL] 10.7 fL (10/06/16 10:03 AM) Immature Granulocytes [0.0-1.0 %] 0.4 % (10/06/16 10:03 AM) Neutrophils [51-75 %] 54 % (10/06/16 10:03 AM) Lymphocytes [20-46 %] 31 % (10/06/16 10:03 AM) Monocytes [4-11 %] 12 % *HI* (10/06/16 10:03 AM) Eosinophils [0-4 %] 2 % (10/06/16 10:03 AM) Basophils [0-2 %] 0 % (10/06/16 10:03 AM) Neutro Absolute [1.90-7.00] 2.43 (10/06/16 10:03 AM) Lymph Absolute [0.80-3.30] 1.42 (10/06/16 10:03 AM) [place] Absolute [0.30-1.00] 0.55 (10/06/16 10:03 AM) Eos Absolute [0.00-0.50] 0.10 (10/06/16 10:03 AM) Baso Absolute [0.00-0.20] 0.02 (10/06/16 10:03 AM) Coagulation Most recent to oldest [Reference Range]: 1 PT Venous (10/06/16 10:03 AM) INR [0.8-1.2] 1.0 1 (10/06/16 10:03 AM) PTT [25.0-35.0 seconds] 32.1 seconds (10/06/16 10:03 AM) 1Result Comment: Normal (no anticoagulant): 0.8 - 1.2 Units Routine Therapeutic Range: 2.0 - 3.0 Units High Risk Therapeutic Range: 2.5 - 3.5 UnitsChemistry Most recent to oldest [Reference Range]: 1 Sodium Lvl [135-144 mEq/L] 144 mEq/L (10/06/16 10:03 AM) Potassium Lvl [3.5-5.2 mEq/L] 3.9 mEq/L (10/06/16 10:03 AM) Chloride [99-111 mEq/L] 109 mEq/L (10/06/16 10:03 AM) CO2 [23-31 mEq/L] 25 mEq/L (10/06/16 10:03 AM) AGAP [3-20] 10 (10/06/16 10:03 AM) BUN [9-21 mg/dL] 9 mg/dL (10/06/16 10:03 AM) Glucose Lvl [70-99 mg/dL] 76 mg/dL (10/06/16 10:03 AM) Creatinine Lvl [0.72-1.25 mg/dL] 0.77 mg/dL (10/06/16 10:03 AM) eGFR [>60 mL/min] >60 mL/min 1 (10/06/16 10:03 AM) Calcium Lvl [8.9-10.5 mg/dL] 9.6 mg/dL (10/06/16 10:03 AM) Albumin Lvl [3.5-5.0 gm/dL] 4.6 gm/dL (10/06/16 10:03 AM) Total Protein [6.1-7.7 gm/dL] 6.8 gm/dL (10/06/16 10:03 AM) Globulin [1.8-4.0 gm/dL] 2.2 gm/dL (10/06/16 10:03 AM) ALT [0-55 U/L] 16 U/L (10/06/16 10:03 AM) AST [5-34 U/L] 20 U/L (10/06/16 10:03 AM) Alk Phos [40-150 U/L] 75 U/L (10/06/16 10:03 AM) Bili Total [0.2-1.2 mg/dL] 0.4 mg/dL (10/06/16 10:03 AM) TSH with Reflex Free T4 [0.35-4.94] 1.70 (10/06/16 10:03 AM) 1Result Comment: Multiply eGFR results by 1.21 for race. Immunizations Given and Recorded Vaccine Date Status Refusal Reason diphtheria/pertussis, acel/tetanus ped 01/09/03 Recorded Procedures No data available for this section Social History Social History Type Response Smoking Status Never smoker Assessment and Plan Extracted from: Title: Office Visit Note- Anxiety with Author: Hetal Lilly PA-C Date : 10/06/16 lab Assessment/Plan Acute anxiety In order to have lab work done, he is requiring more sedation than PO Ativan. Pt was given Valium 5mg IM and Benadryl 25mg IM in clinic per Dr. Donahue's recommendation. After waiting about 30 minut es, laborer was able to successfully draw his lab in the clinic room. Pt tolerated this very well. Ordered: Office Visit Level 4 Est 43257 Autism Is not allowing for lab to be done without sedation. See above. Ordered: Office Visit Level 4 Est 78454 Easy bruising Need to further evaluate with labs. Dr. Donahue has ordered CBC, PT/PTT, TSH, and CMP. Ordered: Office Visit Level 4 Est 40238 Folliculitis barbae I'm not sure if he will tolerate taking oral abx at this time.Will first try Bactroban ointmentto the area, and try to avoid shaving for now. Call or RTC if not resolving or worsening. Ordered: mupirocin topical, 1 francisco, Topical, TID, X 10 days, # 15 g, 0 Refill(s), Pharmacy: [id number] Office Visit Level 4 Est 74405 Mental retardation Is not allowing for lab to be done without sedation. See above. Ordered: Office Visit Level 4 Est 33732
--- OUTSIDE RECORDS SUMMARY | 2018-02-20 15:24 | External Medical Summary | Referral Summary ---
:1985 Author Organization [facility] [place] [address] Care Team Providers Name Role Phone Erik Donahue Primary Care Physician Encounter VC Date(s): 05/29/15 - 05/29/15 [facility] [place] [address]- Discharge Disposition: 01-Home or Self Care Attending Physician: Erik Donahue MD Admitting Physician: Erik Donahue MD Vital Signs No data available for this section Problem List Condition Effective Dates Status Health Status Informant Autism(Confirmed) Active Dental caries(Confirmed) Active Mental retardation(Confirmed) Active Allergies, Adverse Reactions, Alerts No Known Allergies Medications Keflex 500 mg oral capsule 500 mg 1 caps, Oral, QID, X 10 days, # 40 caps, 0 Refill(s), Pharmacy: [id number], 1 caps Oral QID,x10 days Start Date: 05/29/15 Stop Date: 06/08/15 Status: Ordered Results No data available for [...] 06/01/2006 Document Revised: 01/06/2015 Document Reviewed: 11/06/2012 [facility] Patient Information 2015 [employer] [facility] Campus[facility]mentra. This information is not intended to replace [...]
--- OUTSIDE RECORDS SUMMARY | 2018-02-20 15:24 | External Medical Summary | Referral Summary ---
:1985 Author Organization [facility] [place] [address] Care Team Providers Name Role Phone Erik Donahue Primary Care Physician Encounter VC Date(s): 11/19/16 - 11/19/16 [facility] [place] [address]- Discharge Diagnosis: Autism Discharge Diagnosis: Mental retardation Discharge Diagnosis: Dental caries Discharge Diagnosis: Adult general medical exam Discharge Disposition: 01-Home or Self Care Attending Physician: Erik Donahue MD Admitting Physician: Erik Donahue MD Vital Signs Most recent to oldest [Reference Range]: 1 Blood Pressure [90-140/60-90 mmHg] 118/60 mmHg (11/19/16 9:58 AM) Problem List Condition Effective Dates Status [...] tooth may need to be pulled ( extracted). HOME CARE INSTRUCTIONS You can prevent, stop, [...] care provider. Document Released: 05/14/2003 Document Revised: 08/02/2016 Document Reviewed: 08/24/2013 [employer] Interactive Patient Education 2016 [employer] No follow up information was provided. Extracted from: Title: Office Visit Note Author: Erik Donahue MD Date: 11/19/16 Assessment/Plan Adult general medical exam Forms completed. No Surgical restrictions needed at this time. Autism This issue was reviewed, appears stable, and current therapy continued except as mentioned. Appropriate lab was reviewed from the most recent appropriate entry and lab was ordered if needed in the c darvin/nursing orders, and follow up recommended generally in 90 days and no later then six months. Dental caries See above. Dentalcleaning pending. Mental retardation This issue was reviewed, appears stable, and current therapy continued except as mentioned. Appropriate lab was reviewed from the most recent appropriate entry and lab was ordered if needed in the c darvin/nursing orders, and follow up recommended generally in 90 days and no later then six months. The patient has family members present who are agreeable with today's plan and have no additional concerns or requests. Mother here.
--- OUTSIDE RECORDS SUMMARY | 2018-02-20 15:24 | External Medical Summary | Referral Summary ---
:1985 Author Organization [facility] [place] [address] Care Team Providers Name Role Phone Erik Donahue Primary Care Physician Encounter VC Date(s): 05/29/15 - 05/29/15 [facility] [place] [address]- Discharge Disposition: 01-Home or Self Care Attending [...] days, # 40 caps, 0 Refill(s), Pharmacy: [id number], 1 caps Oral QID,x10 days Start Date: [...] 06/01/2006 Document Revised: 01/06/2015 Document Reviewed: 11/06/2012 [facility] [place] Patient Information 2015 [facility] [place]M[facility] [employer] ([employer] This information is not intended to replace [...]
[2018-02-20] MEDS: SALINE FLUSH 10ml SYRINGE IVF PRN ×3 (15:28→18:14)
[2018-02-20] MEDS ORDERED: IOHEXOL 300mg/ml 100ml INJECTION ONE (16:02)
[2018-02-20] MEDS ORDERED: SALINE FLUSH 10ml SYRINGE ONE (16:02)
--- NOTE | 2018-02-20 16:30 | CT Scan Report ---
EXAM: CT abdomen pelvis w con DATE: 02/20/2018 3:08 PM ENCOUNTER: Initial INDICATION: abd pain COMPARISON: None available. TECHNIQUE: CT of the abdomen and pelvis with IV contrast. The patient received 89.2 mL of Omnipaque 300 without complication. Coronal and sagittal reformatted images were performed. The current CT scan was performed using radiation dose-reduction techniques. FINDINGS: Lower Chest: The visualized portions of the lower lungs are well aerated. No focal airspace disease. The heart is normal in size without pericardial effusion. Abdomen: No intraperitoneal free air. No intra-abdominal free fluid or fluid collections. No lymphadenopathy. Liver: The liver enhances homogeneously without focal masses. Gallbladder and biliary: The gallbladder appears normal. No biliary ductal dilatation. Spleen: The spleen appears normal. Pancreas: The pancreas demonstrates homogeneous attenuation. Adrenal glands: The adrenal glands are normal in size and attenuation. Kidneys/ureters: The kidneys appear normal. The ureters are normal in course and caliber. GI tract: The stomach and small bowel appear grossly normal. There is severe fecal impaction/obstipation of the rectum and left colon. Moderate colonic gas and stool within the transverse and right colon. The appendix is not seen with certainty however no pericecal inflammatory changes seen to suggest acute appendicitis. Vascular structures: The aorta is normal in course and caliber. The mesenteric arterial and venous structures appear patent. Pelvis: No pelvic free fluid. No pelvic lymphadenopathy. Bladder: The bladder is displaced to the right anterolaterally from the large amount of fecal stool but appears otherwise normal. Genital system: The prostate and seminal vesicles appear grossly normal. Skeletal structures and soft tissues: The visualized skeletal structures are grossly normal. IMPRESSION: 1. Severe fecal impaction/obstipation with a large amount of stool within the rectum and left colon. 2. Stool filled rectosigmoid colon displaces the bladder anteriorly and to the right. 3. Moderate gas and stool within the transverse and right colon. .
--- NOTE | 2018-02-20 16:59 | Emergency Department Report ---
General Adult HPI - General Chief complaint: Medical Emergency Stated complaint: not eating, stomach hard, not feeling well Time Seen by Provider: 02/20/18 14:58 - History of Present Illness HPI narrative: 32-year-old male brought in from [facility] with abdominal pain. Apparently abdominal pain began yesterday and has increased throughout today. Staff is concerned that he is is not eating and suffering with abdominal pain. He had elevated temperature today, documented at 99.9 on arrival. He has been holding his abdomen. His parents have DPOA and are somewhat hesitant to have him seen at the hospital. - Related Data Home Medications Medication Instructions Recorded Confirmed No known Home medications [No home 02/20/18 02/20/18 meds] Allergies Allergy/AdvReac Type Severity Reaction Status Date / Time No Known Allergies Allergy Verified 02/20/18 14:54 Review of Systems All systems: reviewed and negative except as stated PFSH Patient Stated Medical History Other Behavioral Health Yes: AUTISM Surgical History: Denies any PSH - Social History Smoking status: Never smoker Substance use type: does not use Alcohol intake frequency: does not drink Physical Exam - Limitations Limitations: altered mental status - General General appearance: alert - Normal Exams: Head:: Normocephalic without trauma Chest/Respirations:: Clear all graves, with good airflow, and symmetry bilaterally Cardiovascular:: Regular rate and rhythm, without murmur or gallop, Pulses 2+ all extremities, capillary refill, <2 seconds all extremities Neurological:: Patient is alert, cranial nerves, motor/sensory/cerebellar, exams w/o gross deficits, to observation - Abdominal Exam Abdominal exam: Present: distention, guarding, rigidity, hypoactive bowel sounds. Absent: rebound Course Vital Signs Temperature 99.9 F 02/20/18 14:45 Pulse Rate 140 H 02/20/18 14:45 Respiratory Rate 20 02/20/18 14:45 Blood Pressure 136/86 02/20/18 14:45 Pulse Oximetry 100 02/20/18 14:45 Temperature 99.9 F 02/20/18 14:45 Pulse Rate 131 H 02/20/18 16:43 Respiratory Rate 19 02/20/18 16:44 Blood Pressure 126/79 02/20/18 16:43 Pulse Oximetry 99 02/20/18 16:43 Medical Decision Making - [facility] Narrative Medical decision making narrative: Patient had IV started with 1 L normal saline bolus. Labs obtained showing white count of greater than 14 with hemoglobin of 7. CT abdomen obtained due to potential for surgical abdomen on exam. CT shows megacolon with significant distention of the colon and portions of small bowel. Spoke with general surgery and patient recommended to be admitted to hospitalist service with Gastrografin enema for both diagnostic and possible therapeutic effect as well as neostigmine tomorrow if needed. I spoke with the patient's father and mother. They were unhappy that he had been brought over here without her permission, but were very cooperative with the fact that he was sick and needed treatment. They are supportive of him being admitted to the hospital at this time and understand the plan of care. This was discussed with Dr. Stevens who is admitting the patient for hospitalist service. - Differential Diagnosis dehydration, constipation, perforated bowel, appendicitis - Lab Data Lab results reviewed: Yes: I reviewed the patient's lab results. Result diagrams: 02/20/18 15:25 02/20/18 15:25 Lab Results 02/20/18 02/20/18 02/20/18 Range/Units 14:58 15:06 15:25 WBC 14.4 H (4.5-11.0) T/MM3 RBC 4.19 L (4.50-5.90) M/MM3 Hgb 7.5 L (13.5-17.5) GM/DL Hct 27.4 L (41-53) % MCV 65.4 L (80-100) UM3 MCH 17.9 L (26-34) UUG MCHC 27.4 L (31-37) GM/DL RDW Std Deviation 36.7 L (36.9-50.2) FL Plt Count 363 (130-400) T/MM3 MPV 9.4 (9.4-12.4) UM3 Immature Gran % (Auto) 0.2 (0.0-0.5) % Neut % (Auto) 73.3 H (33-66) % Lymph % (Auto) 15.3 L (23-45) % Mccreary % (Auto) 10.3 H (0-9.0) % Eos % (Auto) 0.6 (0-4) % Baso % (Auto) 0.3 (0-2) % Neut # (Auto) 10.5 H (1.8-7.7) T/MM3 Lymph # (Auto) 2.2 (1-4.8) T/MM3 Mccreary # (Auto) 1.5 H (0-0.8) T/MM3 Eos # (Auto) 0.1 (0-0.5) T/MM3 Baso # (Auto) 0.1 (0-0.2) T/MM3 Abs Immat Gran (auto) 0.03 (0.00-0.03) T/MM3 Turbidity (0-20) Sodium (136-146) MEQ/L Potassium (3.6-5) MEQ/L Chloride (98-107) MEQ/L Carbon Dioxide (22-30) MEQ/L Anion Gap (5-15) meq/L BUN (9-20) MG/DL Creatinine (0.8-1.5) mg/dL GFR Calculation BUN/Creatinine Ratio (6-26) RATIO Glucose (75-110) MG/DL Glucometer 110 (65-110) mg/dL Calculated Osmolality (261-280) MOSM/KG Calcium (8.4-10.2) MG/DL Total Bilirubin (0.20-1.30) MG/DL Icterus Index (0-7) AST (17-59) U/L ALT (1-50) U/L Alkaline Phosphatase (38-126) U/L Total Protein (6.3-8.2) g/dL Albumin (3.5-5.0) g/dL Globulin (2.4-3.6) G/DL Albumin/Globulin Ratio (1.1-2.2) RATIO Lipase (23-300) U/L Plasma Lactate (0.6-2.2) MMOL/L Specimen Hemolysis (0-25) Ur Collection Type Urine, void-cc/notcc Urine Color Yellow (YELLOW) Urine Clarity Clear Urine pH 6.0 (5.0-8.0) Ur Specific Joshua 1.025 (1.015-1.025) Urine Protein Negative (NEGATIVE) Urine Glucose (UA) Negative (NEGATIVE) Urine Ketones Negative (NEGATIVE) Urine Occult Blood Negative (NEGATIVE) Urine Nitrate Negative (NEGATIVE) Urine Bilirubin Negative (NEGATIVE) Urine Urobilinogen 0.2 (NORMAL) EU/DL Ur Leukocyte Esterase Negative (NEGATIVE) Urinalysis Comment Microscopic not ind. 06/18/18 Range/Units 15:25 WBC (4.5-11.0) T/MM3 RBC (4.50-5.90) M/MM3 Hgb (13.5-17.5) GM/DL Hct (41-53) % MCV (80-100) UM3 MCH (26-34) UUG MCHC (31-37) GM/DL RDW Std Deviation (36.9-50.2) FL Plt Count (130-400) T/MM3 MPV (9.4-12.4) UM3 Immature Gran % (Auto) (0.0-0.5) % Neut % (Auto) (33-66) % Lymph % (Auto) (23-45) % Mccreary % (Auto) (0-9.0) % Eos % (Auto) (0-4) % Baso % (Auto) (0-2) % Neut # (Auto) (1.8-7.7) T/MM3 Lymph # (Auto) (1-4.8) T/MM3 Mccreary # (Auto) (0-0.8) T/MM3 Eos # (Auto) (0-0.5) T/MM3 Baso # (Auto) (0-0.2) T/MM3 Abs Immat Gran (auto) (0.00-0.03) T/MM3 Turbidity < 20 (0-20) Sodium 144 (136-146) MEQ/L Potassium 4.3 (3.6-5) MEQ/L Chloride 103 (98-107) MEQ/L Carbon Dioxide 25 (22-30) MEQ/L Anion Gap 16 H (5-15) meq/L BUN 15.0 (9-20) MG/DL Creatinine 0.7 L (0.8-1.5) mg/dL GFR Calculation 132 BUN/Creatinine Ratio 21 (6-26) RATIO Glucose 109 (75-110) MG/DL Glucometer (65-110) mg/dL Calculated Osmolality 279 (261-280) MOSM/KG Calcium 9.6 (8.4-10.2) MG/DL Total Bilirubin 0.60 (0.20-1.30) MG/DL Icterus Index < 2 (0-7) AST 17 (17-59) U/L ALT 11 (1-50) U/L Alkaline Phosphatase 82 (38-126) U/L Total Protein 8.1 (6.3-8.2) g/dL Albumin 4.9 (3.5-5.0) g/dL Globulin 3.2 (2.4-3.6) G/DL Albumin/Globulin Ratio 1.5 (1.1-2.2) RATIO Lipase 21 L (23-300) U/L Plasma Lactate 2.5 H (0.6-2.2) MMOL/L Specimen Hemolysis < 15 (0-25) Ur Collection Type Urine Color (YELLOW) Urine Clarity Urine pH (5.0-8.0) Ur Specific Joshua (1.015-1.025) Urine Protein (NEGATIVE) Urine Glucose (UA) (NEGATIVE) Urine Ketones (NEGATIVE) Urine Occult Blood (NEGATIVE) Urine Nitrate (NEGATIVE) Urine Bilirubin (NEGATIVE) Urine Urobilinogen (NORMAL) EU/DL Ur Leukocyte Esterase (NEGATIVE) Urinalysis Comment - Radiology Data Radiology results reviewed: Yes: I reviewed the patient's radiology results. Disposition Clinical Impression: Megacolon, Dehydration Disposition: 02 To [facility] Acute Care Condition: Stable Prescriptions: No Action No known Home medications [No home meds] 0 #0 [facility]: Primary Care,You Choose [Primary Care Provider] - Time of Disposition: 17:08 - Seen By: physician
[2018-02-20] MEDS: PIPERACILLIN/TAZOBACTAM 3.375 GM in NS 100 ML IV SCH ×2 (17:26→23:09)
[2018-02-20] MEDS: 1/2 NS 1,000 ML IV SCH (18:02)
[2018-02-20] MEDS: PANTOPRAZOLE 40 MG INJECTION IVP SCH (18:14)
--- NOTE | 2018-02-20 18:22 | History & Physical Report ---
History of Present Illness Date: 02/20/18 Chief complaint: Abdominal pain HPI: Arslan Albright is a 32 y/o male with autism and a hx of toxic megacolon. Per report , this morning he woke up with abdominal pain and didn't want to eat anything - this was unusual for Arslan. He was incontinent of urine and stool, also atypical for him. There were no reports of fever/chills, n/v. Every ROS asked of Arslan was positive. He was sent to the ED, CT scan showed: "1. Severe fecal impaction/obstipation with a large amount of stool within the rectum and left colon. 2. Stool filled rectosigmoid colon displaces the bladder anteriorly and to the right. 3. Moderate gas and stool within the transverse and right colon." WBC was elevated at 14.4, and he was anemic with hgb of 7.5. Lactate was elevated at 2.5. UA was neg. He received a liter of NS and zosyn was initiated. He received morphine for pain. He was tachycardic with rates up to 156 - after 1L IVF his rate improved to the 130s. BP was stable. He was afebrile. Dr. Stevens was notified and the patient was admitted to inpatient status, placed in the CCU. Review of Systems ROS unobtainable: due to mental status (Every ROS question was positive) Past Medical History Medical History Updates: Autism. Dental problems Surgical History: Left great toe partial nale plate removal 2011. Dental surgery Family History Updates: Parents are healthy. Paternal grandfather of pancreatic cancer. A few people on maternal side also had cancer. Family History: As Above - Social History Smoking status: Never smoker Substance use type: does not use Alcohol intake frequency: does not drink Medications Home Medications Medication Instructions Recorded Confirmed Type No known Home medications [No home 02/20/18 02/20/18 History meds] Allergies Allergy/AdvReac Type Severity Reaction Status Date / Time No Known Allergies Allergy Verified 02/20/18 14:54 Exam Vital Signs: Temperature 99.9 F 02/20/18 14:45 Pulse Rate 140 H 02/20/18 17:49 Respiratory Rate 25 H 02/20/18 17:49 Blood Pressure 131/80 02/20/18 17:49 Pulse Oximetry 100 02/20/18 17:49 Telemetry Rhythm: Sinus Tachycardia Height/Weight/BMI: Height 1.75 m Weight 69.2 kg Body Mass Index 22.5 - Constitutional Present: no acute distress, well nourished, well developed - Routine HEENT Exam Eye: Present: PERRL. Absent: conjunctival icterus, scleral injection ENT: Present: mucous membranes moist, oropharynx clear - Routine Neck Exam Present: supple, lymphadenopathy - Routine Respiratory Exam Present: CTA bilaterally - Routine Cardiovascular Exam Present: RRR, S1, S2, tachycardia - Routine Abdominal Exam Present: tenderness (diffusely), distended. Absent: normoactive bowel sounds ( hypoactive) - Routine Extremities Exam Present: no edema Comments: mild superficial abrasions to lower ext - pt unsure of cause - Routine Skin Exam Present: intact, dry, warm - Routine Neurological Exam Present: alert, moving all extremities, vision grossly intact. Absent: facial asymmetry - Routine Psychiatric Exam Present: normal affect Results - Labs CBC & Chem 7: 02/20/18 15:25 02/20/18 15:25 Assessment and Plan Assessment and Plan: Assessment Toxic megacolon R/O severe sepsis - tachycardia, leukocytosis, lactate 2.5 Severe microcytic anemia with hgb of 7.5 Autism Dental problems Plan Admit, CCU. Bowel rest - NPO. Cont IVF - 1/2 NS with Na of 144. Consult Dr. Gomez for mgt. Sx management with protonix, morphine, zofran. Cont IVF for tachycardia; sepsis. Repeat lactate. Cont Zosyn for bowel coverage. Follow BC results. Iron w/u in progress. Type & screen ordered. D/W with Dr. Stevens and RN. PCP - Dr. Donahue. DVT Prophylaxis: SCD's GI Prophylaxis: Protonix Resuscitation Status: Full Code - Physician Narrative Physician: Daniel Stevens MD Narrative: Date: 02/20/18 Time: 1899 Have independently interviewed and examined pt. Chart reviewed. Case discussed with ED physician and my [employer] INSPECTOR. Care plan developed with my supervision; agree with above. Present to ED from [facility] for abdominal evaluation. Refused to eat today, which is unusual for him as he typically eats well. Staff noted his ab much more distended. Pt had incontinence of bowel and bladder. More restless and refusing care. Obtaining history from patient not possible secondary to this Autism. In ED, HR elevated. WBC elevated. CT showed evidence of toxic megacolon. With patient's symptoms is admitted to [facility] CCU for care and support. Lungs: clear bilaterally CV: tachy, regular AB: distended. BS not present EXT : thin Plan: Inpatient admission to [facility]. Zosyn for antimicrobial coverage. IVF for volume support. NPO for bowel rest; consult with Dr Gomez for surgical opinion and treatment options. With HGB low, check iron/ferritin-will type and screen as likely need transfusion. SCD for DVT protection. Protonix for GI protection. Monitor lab. Care to return to Dr Donahue at time of discharge from [facility]. Hospital Course Summary Disclaimer: The visit summary below is not to be considered part of the above Progress Note. Hospital Course: 02/20/18 Admit, CCU. Bowel rest - NPO. Cont IVF - 1/2 NS with Na of 144. Consult Dr. Gomez for mgt. Sx management with protonix, morphine, zofran. Cont IVF for tachycardia; sepsis. Repeat lactate. Cont Zosyn for bowel coverage. Follow BC results. Iron w/u in progress. Type & screen ordered. D/W with Dr. Stevens and RN.
--- NOTE | 2018-02-20 19:01 | General Surgery Consult Note ---
Consult date: 02/20/18 Attending Physician: Daniel Stevens MD [facility] Patient Stated Medical History Other Behavioral Health Yes: AUTISM Medical History Updates: Autism. Dental problems Surgical History: Left great toe partial nale plate removal 2011. Dental surgery Family History Updates: Parents are healthy. Paternal grandfather of pancreatic cancer. A few people on maternal side also had cancer. - Social History Smoking status: Never smoker Substance use type: does not use Alcohol intake frequency: does not drink Medications Home Medications Medication Instructions Recorded Confirmed Type No known Home medications [No home 02/20/18 02/20/18 History meds] Allergies Allergy/AdvReac Type Severity Reaction Status Date / Time No Known Allergies Allergy Verified 02/20/18 14:54 Review of Systems 10-point ROS: not fully reviewed (his cognitive handicap made answers unreliable ) - Gastrointestinal Gastrointestinal: Present: other (poor appetite, and fecal incontinence today) - Genitourinary Additional comments: urinary incontinence this morning. - Vital Signs Last Vital Signs Temp 99.9 F 02/20/18 14:45 Pulse 125 H 02/20/18 18:42 Resp 25 H 02/20/18 17:49 BP 131/80 02/20/18 17:49 Pulse Ox 100 02/20/18 17:49 - Laboratory Result Diagrams: 02/20/18 15:25 02/20/18 15:25
[2018-02-21] MEDS: 1/2 NS 1,000 ML IV SCH ×3 (02:33→16:27)
[2018-02-21] MEDS: PIPERACILLIN/TAZOBACTAM 3.375 GM in NS 100 ML IV SCH ×4 (04:54→22:30)
[2018-02-21] MEDS ORDERED: NS FLUSH BAG 500ml IV PRN (05:12)
--- NOTE | 2018-02-21 08:51 | General Surgery Progress Note ---
Subjective Narrative: Mcdermott cath placed during the night which gave some relief of abd pain. Abd somewhat softer today than yesterday and he is having smear and small soft stools. - Vital Signs Last Vital Signs Temp 98.3 F 02/21/18 04:00 Pulse 104 H 02/21/18 08:32 Resp 21 02/21/18 05:00 BP 110/55 02/21/18 06:00 Pulse Ox 97 02/21/18 05:00 - Laboratory Result Diagrams: 02/22/18 04:58 02/22/18 04:58 - Microbiogy Microbiology 02/20/18 20:07 Peripheral/Iv Start Blood Culture - Preliminary Culture Initiated - Results Pending - Pathology CT abd: GI tract: The stomach and small bowel appear grossly normal. There is severe fecal impaction/obstipation of the rectum and left colon. Moderate colonic gas and stool within the transverse and right colon. The appendix is not seen with certainty however no pericecal inflammatory changes seen to suggest acute appendicitis. Vascular structures: The aorta is normal in course and caliber. The mesenteric arterial and venous structures appear patent. Pelvis: No pelvic free fluid. No pelvic lymphadenopathy. Bladder: The bladder is displaced to the right anterolaterally from the large amount of fecal stool but appears otherwise normal. Genital system: The prostate and seminal vesicles appear grossly normal. Skeletal structures and soft tissues: The visualized skeletal structures are grossly normal. IMPRESSION: 1. Severe fecal impaction/obstipation with a large amount of stool within the rectum and left colon. 2. Stool filled rectosigmoid colon displaces the bladder anteriorly and to the right. 3. Moderate gas and stool within the transverse and right colon. - Abnormal Exam General: other (impared cognitive function, chronic. Mother present and helpful with questions.) Abdominal: hypoactive bowel sounds, firm (but less than yesterday), distended, tender (slightly, again, less than yesterday), other (digital exam revealed large firm mass about 4 cm from anal verge, able to "scrape" off what feels like stool with sweeping motion of my finger, not able to get finger around the back side of the fecalith) - Normal Exam General: awake, alert Cardiovascular: regular rhythm, regular rate (tachy 110's this morning) Respiratory: clear bilaterally, no labored breathing Abdominal: other (soft dark brown stool in depends, rectal exam revealed large firm ball of stool about 4-5 cm from anal verge, able to "scrape" stool off the outer portion. Unable to get finger around the stool) Assessment and Plan (1) Impaction of colon Current Visit: Yes Status: Acute (2) Megacolon Current Visit: Yes Status: Acute Plan: Rectal exam indicates presence of fecal impaction, consistent with CT findings. Unable to get finger around the stool to dislodge it. Dr. Gomez orders Gastrografin enema for both therapeutic and diagnostic benefit. Hospital Course Summary Disclaimer: The visit summary below is not to be considered part of the above Progress Note. Hospital Course: 02/20/18 Admit, CCU. Bowel rest - NPO. Cont IVF - 1/2 NS with Na of 144. Consult Dr. Gomez for mgt. Sx management with protonix, morphine, zofran. Cont IVF for tachycardia; sepsis. Repeat lactate. Cont Zosyn for bowel coverage. Follow BC results. Iron w/u in progress. Type & screen ordered. D/W with Dr. Stevens and RN.
[2018-02-21] MEDS ORDERED: DIATRIZOATE MEGLUMINE/SOD. (66%/10%) 120ml SOLN ONE (09:44)
--- NOTE | 2018-02-21 11:21 | Progress Note ---
- Date 02/21/18 Subjective: No AE per nursing staff. Having very small smears of stool. +flatus. Has remained afebrile. No N/V/CP/SOB. Has a hx of prior episodes of constipation, and isn't on any meds to prevent constipation at home. Per surgery, planning on gastrograffin enema today. Objective Vital signs: Temperature 98.3 F 02/21/18 04:00 Pulse Rate 104 H 02/21/18 08:32 Respiratory Rate 21 02/21/18 05:00 Blood Pressure 110/55 02/21/18 06:00 Pulse Oximetry 97 02/21/18 05:00 Height/Weight/BMI: Height 5 ft 9 in Weight 70.6 kg Body Mass Index 22.5 - Constitutional Present: no acute distress, well developed - Routine HEENT Exam Head: Present: normocephalic, atraumatic Eye: Present: EOMI, PERRL ENT: Present: mucous membranes moist, oropharynx clear, external ear normal - Routine Respiratory Exam Present: CTA bilaterally. Absent: wheezes, crackles - Routine Cardiovascular Exam Present: RRR. Absent: murmur, gallop, rubs - Routine Abdominal Exam Present: soft, non distended, non tender. Absent: organomegaly Comments: Hypoactive bowel sounds. - Routine Extremities Exam Present: full ROM, normal capillary refill. Absent: cyanosis, edema - Routine Skin Exam Present: intact, dry. Absent: jaundice, rash - Routine Neurological Exam Present: alert, CN II-XII intact, moving all extremities (5/5 strength). Absent : altered mental status At baseline mental status - Routine Psychiatric Exam Absent: depressed, anxious Results - Labs CBC & Chem 7: 02/21/18 10:12 02/21/18 04:11 Microbiology Results: Microbiology 02/20/18 20:07 Peripheral/Iv Start Blood Culture - Preliminary Culture Initiated - Results Pending Assessment and Plan Assessment and Plan: Assessment Severe constipation R/O severe sepsis - tachycardia, leukocytosis, lactate 2.5 Severe microcytic anemia with hgb of 7.5 Autism Dental problems Plan Severe constipation: Gastrograffin enema today, diagnostic for obstruction and therapeutic. Given question of toxic megacolon with tachycardia, Dr. Gomez consulted. Cont abx for now. Microcytic anemia: PIPER or thallasemia. Await iron studies. Hgb 6.6 today, transfusing 1 unit PRBCs. Sinus Tachycardia: Gradually improving with IVF admin, continue. FEN: Cont 1/2 NS. NPO for now. Proph: SCDs. Proph: Await improvement in severe constipation. - Physician Narrative Narrative: Date: 02/21/18 Time: 1117 Hospital Course Summary Disclaimer: The visit summary below is not to be considered part of the above Progress Note. Receiving gastrograffin enema Hospital Course: 02/20/18 Admit, CCU. Bowel rest - NPO. Cont IVF - 1/2 NS with Na of 144. Consult Dr. Gomez for mgt. Sx management with protonix, morphine, zofran. Cont IVF for tachycardia; sepsis. Repeat lactate. Cont Zosyn for bowel coverage. Follow BC results. Iron w/u in progress. Type & screen ordered. D/W with Dr. Stevens and RN. 02/21: Gastrograffin enema today, diagnostic for obstruction and therapeutic. Given question of toxic megacolon with tachycardia, Dr. Gomez consulted. Microcytic anemia: PIPER or thallasemia. Await iron studies. Hgb 6.6 today, transfusing 1 unit PRBCs. Sinus Tachycardia: Gradually improving with IVF admin, continue.
[2018-02-21] MEDS: ONDANSETRON 4 MG/2 ML INJECTION IVP PRN ×2 (11:35→20:34)
--- NOTE | 2018-02-21 11:36 | Fluoroscopy Report ---
Indication:rule out colonic mass, and bowel stimulant Procedure:FL barium enema XF SINGLE CONTRAST COLON: Lead Esthetician KUB: Two curber abdominal radiographs were obtained. There is a large volume of stool in the sigmoid and left colon. There is a large amount of air in the right colon. Technique: Using fluoroscopic guidance and meticulous graded compression, a single contrast Gastrografin enema was performed. Fluoroscopic imaging was obtained in the left lateral, supine AP, LPO, and RPO positions. Due to AP abdominal radiographs were obtained. Findings: There is a significant amount of stool throughout the rectum, sigmoid, and descending colon. There is a large filling defect in the rectosigmoid area most likely representing a large stool ball, however, a colonic mass cannot be completely ruled out. Clinical correlation or a flexible sigmoidoscopy could be performed for further evaluation. Due to the significant stool and large amount of air in the right colon, the ascending and hepatic flexure portions of the colon are not well visualized during today's exam and cannot be evaluated. The remainder of the exam is negative. Contrast flows through the sigmoid, descending, and transverse colon with a mild amount of difficulty. No obvious obstruction is visualized. Impression: 1. Large filling defect in the rectosigmoid area that most likely represent a large stool ball, however, a colonic mass cannot be entirely excluded. Correlation with flexible sigmoidoscopy or colonoscopy may be helpful. 2. Significant amount of colonic stool, most marked in the left colon. 3. Incomplete evaluation of the right colon, due to a large amount of trapped air. These results were discussed with Nadeem Manning APRN at the conclusion of this exam. Fluoroscopy dose: 49.72 mGy (Cumulative air kerma) Edgar Enriquez RPA/VISHAL performed this under my direct supervision. .
[2018-02-21] MEDS: PANTOPRAZOLE 40 MG INJECTION IVP SCH (11:37)
[2018-02-21] MEDS: METOCLOPRAMIDE 10mg/2ml INJECTION IVP PRN (14:02)
--- NOTE | 2018-02-21 14:44 | Consultation ---
DATE OF CONSULTATION 02/21/2018 FINDINGS Mr. Albright is a 32-year-old male whom I was asked to see today as a result of his history for abdominal pain and abnormal CT scan revealing evidence for possible toxic megacolon. Patient unfortunately suffers from severe autism. He apparently began to have a component of both urinary and fecal incontinence which is not typical for him. Initially he began to complain of increasing abdominal pain and became anorexic in nature. As a result of these changes, he was brought into the emergency room for further evaluation. Given Cosmo' s mental status, it was difficult to obtain much information from him. The majority of information was obtained from reviewing the patient's chart. The patient did undergo a CT scan through the ER which was concerning for possible toxic megacolon and the patient was subsequently admitted to the hospital for further care. I did see the patient this morning. Upon questioning the patient , he answered "yes" with the majority of questions presented to him. It was difficult to know whether or not he was truly understanding my questions. He did answer "yes" when I questioned him in regards to abdominal pain/discomfort. PAST MEDICAL HISTORY Performed by my nurse practitioner, Nadeem Manning. PAST SURGICAL HISTORY Performed by my nurse practitioner, Nadeem Manning. MEDICATIONS Performed by my nurse practitioner, Nadeem Manning. ALLERGIES Performed by my nurse practitioner, Nadeem Manning. FAMILY HISTORY Performed by my nurse practitioner, Nadeem Manning. REVIEW OF SYSTEMS Performed by my nurse practitioner, Nadeem Manning. PHYSICAL EXAMINATION GENERAL: Cosmo is a 32-year-old male who did not appear to be in acute distress this morning. He was resting comfortably in the ICU bed upon my entering the room. VITALS: Patient has been afebrile since admission. Current vitals include temperature 98.3, pulse 117, respirations 31, blood pressure 120/73, SaO2 100% on room air. HEENT: Normocephalic. Pupils are equally round and react to light and accommodation. CHEST: Clear to auscultation bilaterally. HEART: Regular rate and rhythm. Normal S1, S2, without gallops, murmurs or clicks. ABDOMEN: Visualization of the abdomen does reveal some slight abdominal distention. Palpation of the abdomen revealed it to be soft. There was no evidence for guarding or voluntary guarding with firm palpation. No peritoneal signs were present. LABORATORY/RADIOGRAPHIC/REVIEW OF PATIENT'S CHART Patient's white count was 14.4 upon admission. He was began empirically on Zosyn. This morning his white count was 10.8. Hemoglobin was 7.5 yesterday. I did see the patient was receiving a blood transfusion this morning. His hemoglobin earlier today was 6.6. Hemoglobin obtained after blood transfusion was 8.0. He did have slight left shift with 82% neutrophils today. No bandemia recorded. CMP obtained and found to be without marked abnormalities. Lipase was normal at 21. UA was obtained and found to be negative as well. The patient did have a CT scan of his abdomen and pelvis. One could see a considerable amount of stool involving the rectum and sigmoid colon. As a result of his marked stool within the rectum, the bladder was displaced anteriorly. ASSESSMENT 32-year-old gentleman with severe autism who presents with diffuse abdominal pain, leukocytosis, and abnormal CT scan. Patient without acute surgical abdomen. PLAN I would recommend that we go ahead today and perform a Gastrografin enema to rule out a potential obstruction. Additionally the Gastrografin enema may be therapeutic in nature and result in hopefully several bowel movements and evacuation of the considerable amount of stool burden present. My nurse practitioner earlier today did perform a rectal examination and no discrete rectal masses were noted but the patient was found to have a considerable amount of stool within the rectal vault. Later today I will attempt to see the patient once again and perform a digital rectal examination myself. The patient may ultimately be required to be taken to the operative suite and rectal examination performed under anesthesia with disimpaction being performed potentially. Patient at this time does not appear to have an acute surgical process. SYLVAIN
--- NOTE | 2018-02-21 20:15 | Progress Note ---
DATE OF SERVICE 02/21/2018 FINDINGS Cosmo was seen this evening on rounds. Nurse reports that he has had voluminous amounts of stool since his Gastrografin enema. He has been slightly tachycardic this evening and is complaining of a component of some increased abdominal discomfort. PHYSICAL EXAM VITAL SIGNS: Afebrile. The patient is tachycardic with pulse of 124. Blood pressure is stable at 124/72. ABDOMEN: Palpation of the abdomen this evening does reveal it to be slightly more firm in nature. He did not, however, have any navid peritoneal signs. No evidence for guarding or rebound. I elected not to proceed with digital rectal examination this evening for the patient did seem uncomfortable and has "been threw a lot" today following his Gastrografin enema. LABORATORY/RADIOGRAPHIC EVALUATION Gastrografin enema did not reveal any evidence for obstruction. He was found to have a significant stool throughout the rectum, sigmoid colon and descending colon. No obvious mass was noted. ASSESSMENT 32-year-old gentleman with marked constipation. Patient with multiple bowel movements following Gastrografin enema. PLAN Will continue with current care. Will reassess tomorrow. Will hopefully tomorrow perform a digital rectal examination to see if the patient does have ongoing evidence for fecal impaction. As stated previously in prior dictation, the patient may ultimately require digital examination under anesthesia with disimpaction. SYLVAIN
[2018-02-21] MEDS: SALINE FLUSH 10ml SYRINGE IVF PRN (20:34)
[2018-02-21] MEDS: GLYCERIN ADULT RECTAL SUPPOSITORY RECTALLY SCH (20:35)
[2018-02-22] MEDS ORDERED: MORPHINE SULFATE 2mg INJECTION IVP ONE (00:46)
[2018-02-22] MEDS: 1/2 NS 1,000 ML IV SCH ×4 (02:23→21:23)
[2018-02-22] MEDS: PIPERACILLIN/TAZOBACTAM 3.375 GM in NS 100 ML IV SCH ×3 (05:30→18:30)
--- NOTE | 2018-02-22 08:35 | General Surgery Progress Note ---
Subjective Narrative: He had several copious large and moderate BM's after the gastrografin enema yesterday. Staff indicate Arslan is more lethargic than the night before, not wanting in and out of bed every couple of hours like he had wanted to 2 nites ago. No emesis. Arslan asks for water frequently, swabs are given. - Vital Signs Last Vital Signs Temp 98.6 F 02/22/18 07:42 Pulse 120 H 02/22/18 08:00 Resp 27 H 02/22/18 08:00 BP 132/86 02/22/18 07:00 Pulse Ox 96 02/22/18 07:30 - Laboratory Result Diagrams: 02/22/18 04:58 02/22/18 04:58 - Microbiogy Microbiology 02/20/18 20:07 Peripheral/Iv Start Blood Culture - Preliminary No Growth After 1 Day - Abnormal Exam General: other (cognitively imparied, chronic) Abdominal: hypoactive bowel sounds (abscent this morning), firm (much firmer than yesterday morning.), distended, tender (generally to moderate palpation.), other (hard stool in rectum noted on CARLOS) - Normal Exam General: alert Cardiovascular: regular rhythm, regular rate (tachy 110's) Respiratory: clear bilaterally, no labored breathing Assessment and Plan (1) Impaction of colon Current Visit: Yes Status: Acute (2) Megacolon Current Visit: Yes Status: Acute Plan: In spite of copious and large BMs, stool impaction still present, abd more distended and firm than yesterday. Will repeat KUB upright today. Hospital Course Summary Disclaimer: The visit summary below is not to be considered part of the above Progress Note. Hospital Course: 02/20/18 Admit, CCU. Bowel rest - NPO. Cont IVF - 1/2 NS with Na of 144. Consult Dr. Gomez for mgt. Sx management with protonix, morphine, zofran. Cont IVF for tachycardia; sepsis. Repeat lactate. Cont Zosyn for bowel coverage. Follow BC results. Iron w/u in progress. Type & screen ordered. D/W with Dr. Stevens and RN.
[2018-02-22] MEDS: GLYCERIN ADULT RECTAL SUPPOSITORY RECTALLY SCH ×2 (09:49→21:57)
[2018-02-22] MEDS: PANTOPRAZOLE 40 MG INJECTION IVP SCH (09:49)
[2018-02-22] MEDS: ONDANSETRON 4 MG/2 ML INJECTION IVP PRN ×2 (09:49→17:54)
--- NOTE | 2018-02-22 09:59 | XRay Report ---
Indication: increasing distention PROCEDURE: XR abdomen 2V: Encounter: Initial Comparison: CT abdomen dated February 20, 2018 barium enema dated 10/24/2017 Findings: Large amount of stool again seen in the colon. Decreased stool burden in the transverse and left colon with a large amount of stool and contrast remaining in the right colon. Significant colonic distention up to 10.5 cm. No abnormally dilated small bowel loops appreciated. No free air seen on the semiupright view. Impression: Continued significant distention of colon without obvious wall colonic wall edema .
--- NOTE | 2018-02-22 10:06 | Progress Note ---
- Date 02/22/18 Pt underwent gastrograffin enema yesterday, with copious bowel movements afterwards. Continues to be distended with firm abdomen, and has stool impaction in rectal vault. Otherwise, has been afebrile. No N/V/SOB. No other acute events. Objective Vital signs: Temperature 98.6 F 02/22/18 07:42 Pulse Rate 120 H 02/22/18 08:00 Respiratory Rate 27 H 02/22/18 08:00 Blood Pressure 132/86 02/22/18 07:00 Pulse Oximetry 96 02/22/18 07:30 Rhythm: Sinus Tachycardia Height/Weight/BMI: Height 5 ft 9 in Weight 69.3 kg Body Mass Index 22.5 - Constitutional Present: no acute distress - Routine HEENT Exam Head: Present: normocephalic, atraumatic Eye: Present: EOMI, PERRL - Routine Respiratory Exam Present: CTA bilaterally. Absent: rales, crackles - Routine Cardiovascular Exam Present: S1, S2, tachycardia - Routine Abdominal Exam Present: distended (Firm and distended abd. ). Absent: normoactive bowel sounds (Hypoactive bowel sounds. ), rebound, guarding - Routine Extremities Exam Absent: cyanosis, clubbing, edema - Routine Neurological Exam Present: alert. Absent: oriented X3 (At baseline mental function. ) - Routine Psychiatric Exam Present: cooperative Results - Labs CBC & Chem 7: 02/22/18 04:58 02/22/18 04:58 Microbiology Results: Microbiology 02/20/18 20:07 Peripheral/Iv Start Blood Culture - Preliminary No Growth After 1 Day Assessment and Plan Assessment and Plan: Assessment Severe constipation R/O severe sepsis - tachycardia, leukocytosis, lactate 2.5 Severe microcytic anemia with hgb of 7.5 Autism Dental problems Plan Severe constipation: Gastrograffin enema 02/21 with copious stool yesterday. However, continues to have stool impaction in the rectal vault. Further management per surgery, whether another enema vs manual disimpaction vs other. Continue abx given concern for toxic megacolon with tachycardia and bandemia. Microcytic anemia: PIPER or thallasemia. Await iron studies. Hgb 7.8 today. S/P 1 unit PRBCs 02/21. Sinus Tachycardia: Gradually improving with IVF admin, continue. FEN: Cont 1/2 NS. NPO for now. Proph: SCDs. Dispo: Await improvement in severe constipation. Hospital Course Summary Disclaimer: The visit summary below is not to be considered part of the above Progress Note. Receiving gastrograffin enema Hospital Course: 02/20/18 Admit, CCU. Bowel rest - NPO. Cont IVF - 1/2 NS with Na of 144. Consult Dr. Gomez for mgt. Sx management with protonix, morphine, zofran. Cont IVF for tachycardia; sepsis. Repeat lactate. Cont Zosyn for bowel coverage. Follow BC results. Iron w/u in progress. Type & screen ordered. D/W with Dr. Stevens and RN. 02/22. Gastrograffin enema 02/21 with copious stool resulting. However, still with stool in rectal vault. Deferring further management to surgery team, await recs. Cont zosyn given bandemia, tachycardia and concern for toxic megacolon. - Physician Narrative Narrative: Date: 02/22/18 Time: 0958 Hospital Course Summary Disclaimer: The visit summary below is not to be considered part of the above Progress Note. Hospital Course: 02/20/18 Admit, CCU. Bowel rest - NPO. Cont IVF - 1/2 NS with Na of 144. Consult Dr. Gomez for mgt. Sx management with protonix, morphine, zofran. Cont IVF for tachycardia; sepsis. Repeat lactate. Cont Zosyn for bowel coverage. Follow BC results. Iron w/u in progress. Type & screen ordered. D/W with Dr. Stevens and RN.
[2018-02-22] MEDS ORDERED: FLEET PHOSPHO - SODA ENEMA 133ml PR ONE (12:51)
--- NOTE | 2018-02-22 13:45 | Progress Note ---
DATE: 02/22/2018 FINDINGS Cosmo was seen earlier today on rounds. He apparently has been complaining of increased abdominal discomfort. VITALS: Afebrile. Remains slightly tachycardic. Last recorded vitals include temperature 97.6, pulse 120, respirations 27, blood pressure 132/86, SaO2 96% on room air. HEENT: Normocephalic. Pupils are equal, round and reactive to light and accommodation. CHEST: Clear to auscultation bilaterally. HEART: Regular rate and rhythm. Normal S1 and S2 without gallops, murmurs or clicks. ABDOMEN: Palpation of the abdomen reveals it to be quite taut today. His abdomen is fairly firm. Did not have evidence for navid rebound or involuntary guarding. It does appear, however, that he has a component of generalized abdominal discomfort upon palpation. RECTAL: Digital rectal examination was performed. One could appreciate hard stool within the upper aspect of the rectal vault. A finger was not able to be placed around this large ball of stool within the upper rectum. One could place a finger adjacent to the rectal wall and hard stool. Liquidy stool did come out from the patient's anus, as well as air. No masses were noted along the rectal wall. This hard stool was perhaps 8-10 cm in diameter involving the upper rectum. LABORATORY/RADIOGRAPH EVALUATION The patient did have an element of bandemia today that was not present previously. Today, has 24% bands. White count has elevated from 10,000 to 12, 000. Hemoglobin is overall stable at 7.8. BMP was obtained and found to be stable. Radiographically, he did have a KUB and upright obtained today. There continues to be significant distention of the colon. The stool burden within his descending colon is markedly improved. There continues, however, to be a large amount of stool within his ascending colon. There is a fair amount of colonic distention involving his transverse colon and left colon. One can still see contrast remaining within the right colon. ASSESSMENT 32-year-old autistic gentleman with the finding of a "pseudo colonic obstruction " secondary to severe constipation. PLAN I do not feel that I would be able to disimpact this large stool within the upper rectal vault in an operative setting. I am concerned--given his abdominal distention and pain noted on examination in conjunction with his finding of bandemia today. There is no evidence, however, for free air. It is my recommendation that we give the patient some Fleet enemas today to see if we can hopefully "soften up" this large "stool ball" within the upper rectum. As stated above, I do not feel that I would be able to disimpact the patient in the operative setting given the size of this large stool ball and the fact that it is within the upper rectum and I am unable to get a finger around the stool to bring it down to the anal verge. To, hopefully. result in expression of some additional air and stool from his colon, it would be my recommendation that this afternoon we go ahead and give him some neostigmine to facilitate colonic activity. Will continue to follow with serial abdominal examinations. I did inform the patient's mother today that I did feel that he had a "life- threatening" condition. I have seen patients in the past who have also had a stercoral perforation as a result of severe constipation. I have also seen patients who have had a component of bowel ischemia as a result of severe constipation. The patient does not have an acute surgical abdomen at this time. Will continue to manage the patient medically. SYLVAIN
[2018-02-22] MEDS ORDERED: D5W IV ONE (15:00)
[2018-02-22] MEDS ORDERED: NEOSTIGMINE IV ONE (15:00)
[2018-02-22] MEDS: METOCLOPRAMIDE 10mg/2ml INJECTION IVP PRN (19:09)
[2018-02-22] MEDS ORDERED: KETOROLAC 15 MG/ML INJECTION IVP PRN (19:36)
[2018-02-22] MEDS: MORPHINE SULFATE 4mg INJECTION IVP PRN (22:06)
[2018-02-22] MEDS ORDERED: LR 500 ML IV SCH (23:45)
[2018-02-23] MEDS: PIPERACILLIN/TAZOBACTAM 3.375 GM in NS 100 ML IV SCH ×4 (00:01→18:40)
[2018-02-23] MEDS: METOCLOPRAMIDE 10mg/2ml INJECTION IVP PRN (03:56)
[2018-02-23] MEDS: 1/2 NS 1,000 ML IV SCH ×2 (05:09→07:23)
[2018-02-23] MEDS: MORPHINE SULFATE 4mg INJECTION IVP PRN ×4 (07:17→22:09)
[2018-02-23] MEDS: ONDANSETRON 4 MG/2 ML INJECTION IVP PRN (07:17)
--- NOTE | 2018-02-23 08:10 | XRay Report ---
Indication: Toxic Megacolon PROCEDURE: XR abdomen 2V: Encounter: Initial Comparison: February 22, 2018 Findings: New large amount of free intraperitoneal air is seen beneath the hemidiaphragms. There is air outlining of the small bowel folds consistent with a "Rigler's sign". Markedly distended stool-filled colon is again seen throughout the abdomen. There is some contrast present within small bowel loops which are dilated up to 3.5 cm in diameter. There is some air outlining the cecum and the descending colon. Rectal stool ball up to 10.4 cm in diameter. Impression: Visceral perforation with large amount of free intraperitoneal air. Emergent surgical evaluation is recommended. Contrast enhanced CT of the abdomen and pelvis may be helpful to try and localize the site of perforation. These results were discussed in person with Nadeem Manning APRN at 0800 on February 23, 2018 and will be relayed to the ordering physician Dr. Gomez. .
--- NOTE | 2018-02-23 08:14 | General Surgery Progress Note ---
Subjective Narrative: He received a fluid bolus during the night for oliguria and tachycardia into the 180s for a short time. Arslan is less responsive today, pale, clammy. - Vital Signs Last Vital Signs Temp 97.7 F 02/23/18 00:00 Pulse 138 H 02/23/18 06:00 Resp 28 H 02/23/18 07:17 BP 136/97 H 02/23/18 06:00 Pulse Ox 94 02/23/18 06:00 - Laboratory Result Diagrams: 02/23/18 03:53 02/23/18 03:53 Laboratory Tests 02/22/18 02/23/18 04:58 03:53 WBC 12.1 H 16.1 H - Microbiogy Microbiology 02/20/18 20:07 Peripheral/Iv Start Blood Culture - Preliminary No Growth After 2 Days - Pathology KUB from this am reviewed with Dr. Shlomo Houston and free air is noted. Formal report pending. - Abnormal Exam General: other (pale, clammy) Cardiovascular: other (tachy 150's currently) Abdominal: firm (very hard), distended, tender, voluntary guarding, involuntary guarding Male: other (urine output declining even with fluid bolus last night running 5-15/hr.) Assessment and Plan (1) Impaction of colon Current Visit: Yes Status: Acute (2) Megacolon Current Visit: Yes Status: Acute Plan: WBC [id number] (12.1 yesterday) Urine output declining now running 5-15 ml/hr, it increased for a time after fluid bolus during the night. KUB free air Will proceed with emergent exploratory laparotomy, likely colostomy. Hospital Course Summary Disclaimer: The visit summary below is not to be considered part of the above Progress Note. Hospital Course: 02/20/18 Admit, CCU. Bowel rest - NPO. Cont IVF - 1/2 NS with Na of 144. Consult Dr. Gomez for mgt. Sx management with protonix, morphine, zofran. Cont IVF for tachycardia; sepsis. Repeat lactate. Cont Zosyn for bowel coverage. Follow BC results. Iron w/u in progress. Type & screen ordered. D/W with Dr. Stevens and RN.
--- NOTE | 2018-02-23 08:29 | Anesthesia Preoperative Report ---
Anesthesia Preoperative Record - Date and Time Date: 02/23/18 Preoperative Diagnosis: toxic megacolon Proposed Procedure: Ex Lap NPO Since Date: 02/22/18 NPO Since Time: 23:55 Allergies/Adverse Reactions: Allergies Allergy/AdvReac Type Severity Reaction Status Date / Time No Known Allergies Allergy Verified 02/20/18 14:54 - Vital Signs Vital Signs: Temperature 97.7 F 02/23/18 00:00 Pulse Rate 138 H 02/23/18 06:00 Respiratory Rate 28 H 02/23/18 07:17 Blood Pressure 136/97 H 02/23/18 06:00 Pulse Oximetry 94 02/23/18 06:00 Height and Weight: Height 5 ft 9 in Weight 70.9 kg Body Mass Index 22.5 - Medications Inpatient Medications: Current Medications Glycerin (Sani-Supp) 1 supp RECTALLY BID [facility] Last Admin: 02/22/18 21:57 Dose: 1 supp Piperacillin Sod/Tazobactam (Sod 3.375 gm/ Sodium Chloride) 100 mls @ 200 mls/ hr IV Q6H [facility] Last Infusion: 02/23/18 06:00 Dose: Infused Sodium Chloride (1/2 Normal Saline) 1,000 mls @ 125 mls/hr IV .Q8H [facility] Last Admin: 02/23/18 07:23 Dose: 125 mls/hr Ketorolac Tromethamine (Toradol Inj) 15 mg IVP Q6H PRN PRN Reason: Pain Stop: 02/27/18 19:36 Last Admin: 02/22/18 19:40 Dose: 15 mg Metoclopramide HCl (Reglan) 10 mg IVP Q8H PRN Last Admin: 02/23/18 03:56 Dose: 10 mg Morphine Sulfate (Morphine Sulfate Inj) 1 - 4 mg IVP Q1H PRN PRN Reason: Pain Last Admin: 02/23/18 07:17 Dose: 2 mg Ondansetron HCl (Zofran) 4 mg IVP Q6H PRN PRN Reason: Nausea Last Admin: 02/23/18 07:17 Dose: 4 mg Pantoprazole Sodium (Protonix Iv) 40 mg IVP DAILY [facility] Last Admin: 02/22/18 09:49 Dose: 40 mg Sodium Chloride (Iv Flush) 10 - 80 ml IVF PRN PRN PRN Reason: Flushing Last Admin: 02/21/18 20:34 Dose: 10 ml Sodium Chloride (Normal Saline) 500 ml IV PRN PRN Home Medications: Home Medications Medication Instructions Recorded Confirmed Type No known Home medications [No home 02/20/18 02/20/18 History meds] Is Patient on Beta Jackelin?: No - Medical History Respiratory: DENIES: Asthma, Bronchitis, Chronic Obstructive Pulmonary Disease (COPD), Dyspnea, Orthopnea, Pulmonary Embolism, Pneumonia, Upper Respiratory Infection, Pulmonary Edema, Sleep Apnea, Tuberculosis, Other Cardiovascular: DENIES: Abnormal EKG, Angina, Arrhythmia, Congestive Heart Failure, Coronary Artery Disease, Heart Murmur, Hypertension, Hypotension, High Cholesterol, Myocardial Infarction, Rheumatic Fever, Valvular Heart Disease, Other Gastrointestional: Reports: Other (Perforated bowel) Neuro/Musculoskeletal: Reports: Other (Autism) Denies: Back Problems, Cerebrovascular Accident, Depression, Headaches, Loss of Consciousness, Muscle Weakness, Neuromuscular Disorder, Paralysis, Paresthesia, Syncope, Seizures Renal/Endocrine: DENIES: Diabetes Mellitus Type 1, Diabetes Mellitus Type 2, Renal Failure, Dialysis, Thyroid Disease, Weight Loss, Weight Gain, Other Other History: DENIES: Anesthesia Reactions, Now, Blood Transfusions, Chemotherapy , Cancer, Hemophilia, Malignant Hyperthermia, Sickle Cell Disease, Other - Surgical History Anesthesia Reactions: None Hx Family Anesthesia Reaction: No History of Motion Sickness: No - Social History Smoking Status: Never smoker Hx Chewing Tobacco Use: No Second Hand Exposure: No Substance Use Type: does not use Alcohol Intake Frequency: does not drink - Pertinent Findings Laboratory: CBC and BMP 02/23/18 03:53 02/23/18 03:53 BMP 02/23/18 03:53 Sodium 140 Potassium 3.6 Chloride 103 Carbon Dioxide 23 BUN 23.0 H Creatinine 0.8 D Glucose 121 H Calcium 9.1 EKG: Sinus Tachycardia - Physical Exam Respiratory Exam: Present: lungs clear, bilateral breath sounds equal Cardiovascular Exam: Present: regular rate and rhythm, no murmur - Airway Assessment Overall Assessment: may be difficult intubation - ASA ASA Score: 2, E - Plan Anesthesia: General Inhalation Gases - Discussion Discussion: Discussed risks/options/alternatives of anesthesia and questions answered. Patient consents. Nursing pain assessment noted. Present for Discussion: parent Attestation Statement: Prior to the delivery of any anesthetic medication, I examined the patient, developed the plan, obtained the patient's consent and discussed the risk and benefits of the procedure with the patient/guardian. - Additional Information Seen by Anesthesia: Yes
[2018-02-23] MEDS: PANTOPRAZOLE 40 MG INJECTION IVP SCH (08:35)
[2018-02-23] MEDS ORDERED: SUFentanil 50mcg/ml INJECTION ONE ×2 (08:59→11:15)
[2018-02-23] MEDS ORDERED: NS IV PRN (09:09)
[2018-02-23] MEDS ORDERED: PHENYLEPHRINE IV PRN (09:09)
[2018-02-23] MEDS: NS 1,000 ML IV SCH ×3 (09:11→11:29)
[2018-02-23] MEDS: LR 1,000 ML IV SCH ×5 (09:11→23:51)
[2018-02-23] MEDS ORDERED: SALINE FLUSH 10ml SYRINGE ONE ×3 (09:13→12:36)
[2018-02-23] MEDS ORDERED: ALBUMIN HUMAN 25gm 25 G in CONTAINER,EMPTY 0 ML IV ONE (09:40)
--- NOTE | 2018-02-23 09:48 | Progress Note ---
- Date 02/23/18 Subjective: Pt doing worse this am. Less responsive. Required a fluid bolus overnight for tachycardia and hypotension. Afebrile. Abd has been even more distended. AXR this am revealed free air in abd. Surgery made decision to take for surgery this am. Pt unable to verbalize further complaints this am. Objective Vital signs: Temperature 97.7 F 02/23/18 00:00 Pulse Rate 138 H 02/23/18 06:00 Respiratory Rate 28 H 02/23/18 07:17 Blood Pressure 136/97 H 02/23/18 06:00 Pulse Oximetry 94 02/23/18 06:00 Rhythm: Sinus Tachycardia Height/Weight/BMI: Height 5 ft 9 in Weight 70.9 kg Body Mass Index 22.5 - Constitutional Present: moderate distress - Routine HEENT Exam Head: Present: normocephalic, atraumatic Eye: Present: EOMI ENT: Present: mucous membranes dry - Routine Respiratory Exam Present: CTA bilaterally. Absent: rales, wheezes - Routine Cardiovascular Exam Present: S1, S2, tachycardia. Absent: murmur - Routine Abdominal Exam Present: distended (Very firm abd. ). Absent: normoactive bowel sounds (Absent bowel sounds. ), guarding - Routine Extremities Exam Present: no edema. Absent: edema - Routine Neurological Exam Present: moving all extremities. Absent: alert (Somnolent ), motor deficit - Routine Psychiatric Exam Present: unable to assess Results - Labs CBC & Chem 7: 02/23/18 03:53 02/23/18 03:53 Microbiology Results: Microbiology 02/20/18 20:07 Peripheral/Iv Start Blood Culture - Preliminary No Growth After 2 Days - Impressions AXR: Visceral perforation with large amount of free intraperitoneal air. Emergent surgical evaluation is recommended. Contrast enhanced CT of the abdomen and pelvis may be helpful to try and localize the site of perforation. Assessment and Plan Assessment and Plan: Assessment Severe constipation R/O severe sepsis - tachycardia, leukocytosis, lactate 2.5 Severe iron deficiency anemia. Autism Dental problems Plan Toxic megacolon with intraabd free air: Surgery taking pt back to surgery this am. NPO. Severe constipation: Gastrograffin enema 02/21 with copious stool 02/21. Continues to have stool impaction in the rectal vault. Further management per surgery. Sepsis: Bandemia/leukocytosis, tachycardia. Due to toxic megacolon and perf. Cont zosyn. IVF to support BP. Severe PIPER. S/P 1 unit PRBCs 02/21. Will start IV Ferric Gluconate tomorrow. FEN: Cont 1/2 NS. NPO for now. Proph: SCDs. Dispo: Remain in ICU. Hospital Course Summary Disclaimer: The visit summary below is not to be considered part of the above Progress Note. Receiving gastrograffin enema Hospital Course: 02/20/18 Admit, CCU. Bowel rest - NPO. Cont IVF - 1/2 NS with Na of 144. Consult Dr. Gomez for mgt. Sx management with protonix, morphine, zofran. Cont IVF for tachycardia; sepsis. Repeat lactate. Cont Zosyn for bowel coverage. Follow BC results. Iron w/u in progress. Type & screen ordered. D/W with Dr. Stevens and RN. 02/22. Gastrograffin enema 02/21 with copious stool resulting. However, still with stool in rectal vault. Deferring further management to surgery team, await recs. Cont zosyn given bandemia, tachycardia and concern for toxic megacolon. 02/23 Clinically deteriorating. Going for surgery for perforation/free air. DVT Prophylaxis: SCD's - Physician Narrative Narrative: Date: 02/23/18 Time: 0940 Hospital Course Summary Disclaimer: The visit summary below is not to be considered part of the above Progress Note. Hospital Course: 02/20/18 Admit, CCU. Bowel rest - NPO. Cont IVF - 1/2 NS with Na of [address]. [address] Dr[address] Gomez for mgt. Sx management with protonix, morphine, zofran. Cont IVF for tachycardia; sepsis. Repeat lactate. Cont Zosyn for bowel coverage. Follow BC results. Iron w/u in progress. Type & screen ordered. D/W with Dr. Stevens and RN.
[2018-02-23] MEDS ORDERED: ROCURONIUM 50 MG/5 ML INJECTION IVP ONE ×2 (10:42→12:30)
[2018-02-23] MEDS ORDERED: PHENYLEPHRINE INJ 10 MG/ML VIAL IV ONE (10:42)
[2018-02-23] MEDS ORDERED: FUROSEMIDE 40 MG/4 ML INJECTION ONE (10:51)
[2018-02-23] MEDS ORDERED: INDOCYANINE GREEN 25mg INJECTION ONE (12:07)
--- NOTE | 2018-02-23 12:56 | Progress Note ---
DATE 02/23/2018 FINDINGS Cosmo was seen earlier this morning. I have been concerned about Cosmo's status over the last 24 hours or more. Last evening, he began to experience increasing abdominal discomfort. To assess the patient somewhat difficult secondary to his decreased mental function/autism. This morning, Cosmo remains to be nonverbal. He does look at you when spoken to. He apparently has been complaining of increasing abdominal pain to nursing staff. OBJECTIVE VITALS: Patient remains afebrile. This morning his temperature is 97.7. He is however more tachycardic with a pulse of 138. He is tachypneic with a respiratory rate of 28. Blood pressure remains stable. Last recorded blood pressure was 136/97. Urinary output has become decreased in nature. CHEST: Clear to auscultation. HEART: Regular rate and rhythm. Tachycardic in nature. ABDOMEN: Palpation of the abdomen this morning reveals it to be more board- like. He still does not seem to grimace or show much in the way of visible pain upon palpation but his abdomen is definitely more "board-like and rigid" this morning. LABORATORY/RADIOGRAPHIC EVALUATION His white count has now increased to 16,000. He has increasing bandemia of 36% . BMP was obtained and found to be essentially normal although his BUN is increasing at 23.0. Radiographically he did have a KUB and upright this morning. I did review the x-ray this morning. Dictated report was not present when I reviewed the x-ray. One can see a fair amount of residual contrast throughout his colon. The stool within the cecal region is now more so within the descending colon region. He now has some small bowel distention. There are multiple leads overlying his abdominal wall although with visualization one can see that the patient does have a pneumoperitoneum with air below the diaphragm and between the liver. There does appear to be unfortunately this morning a considerable amount of free air upon the upright film. ASSESSMENT 32-year-old male with pneumoperitoneum/surgical abdomen. PLAN Exploratory laparotomy. I did inform the patient's mother of the radiographic findings this morning of perforated viscus and my recommendations of proceeding with emergent surgical intervention/exploratory laparotomy. I informed the patient's mother that it is my intuition that the patient likely has a stercoral perforation of the colon. I did inform the patient's mother in regards to what an exploratory laparotomy with probable creation of an end colostomy would entail and its associated risks which include, but were not exclusive of, bleeding, infection, and even given his critical status. MTDD
[2018-02-23] MEDS ORDERED: SUGAMMADEX 200mg/2ml INJECTION IVP ONE (12:59)
[2018-02-23] MEDS ORDERED: LACRI-LUBE EYE OINT 3.5gm ONE (13:13)
[2018-02-23] MEDS ORDERED: PROPOFOL 20 ML ONE (13:34)
--- NOTE | 2018-02-23 14:10 | XRay Report ---
Indication: Missing Operative Sponge PROCEDURE: XR KUB: Encounter: Initial Comparison: February 23, 2018 Findings: Interval postoperative change with right abdominal and left upper quadrant surgical drains. Nasogastric tube in place with the tip and side port projecting over the body of the stomach. Midline surgical stephani. Scattered free intraperitoneal air noted. No radiopaque surgical instruments or sponges identified. There is residual contrast material seen within the cecum. Over or underlying material seen causing linear areas of artifact. Impression: No retained radiopaque surgical instruments or sponges. .
[2018-02-23] MEDS ORDERED: HYDROMORPHONE 2 MG/ML INJECTION IVP PRN (14:15)
--- NOTE | 2018-02-23 14:55 | General Surgery Procedure Note ---
Date of Procedure: 02/23/18 Surgeon: Patricia Sports Specialist: Nadeem Manning APRN Postoperative Diagnosis: Ischemic colitis with sigmoid colon perforation Procedure: Exploratory laparotomy with near total colectomy, evacuation of massive rectal stool impaction, and creation of end colostomy Estimated Blood Loss: See Anesthesia Record.
[2018-02-23] MEDS ORDERED: ALBUMIN HUMAN IV ONE ×2 (17:10→23:04)
[2018-02-23] MEDS ORDERED: CONTAINER EMPTY IV ONE ×2 (17:10→23:04)
[2018-02-23] MEDS ORDERED: LR 500 ML IV SCH ×2 (17:12→23:15)
[2018-02-23] MEDS: FLUCONAZOLE PB 100 MG/50 ML BAG IV SCH (17:40)
[2018-02-23] MEDS ORDERED: LR 1,000 ML IV SCH (19:30)
[2018-02-23] MEDS: SALINE FLUSH 10ml SYRINGE IVF PRN ×2 (19:55→22:10)
[2018-02-23] MEDS: ACETAMINOPHEN 650 MG SUPPOSITORY PR PRN (19:55)
[2018-02-23] MEDS: GLYCERIN ADULT RECTAL SUPPOSITORY RECTALLY SCH (20:50)
[2018-02-24] MEDS: MORPHINE SULFATE 4mg INJECTION IVP PRN ×8 (00:05→20:24)
[2018-02-24] MEDS: PIPERACILLIN/TAZOBACTAM 3.375 GM in NS 100 ML IV SCH ×5 (00:23→23:26)
[2018-02-24] MEDS: LR 1,000 ML IV SCH ×5 (00:39→20:24)
[2018-02-24] MEDS: SALINE FLUSH 10ml SYRINGE IVF PRN ×3 (02:09→09:21)
[2018-02-24] MEDS ORDERED: LR 500 ML IV SCH (05:30)
[2018-02-24] MEDS: ACETAMINOPHEN 650 MG SUPPOSITORY PR PRN ×2 (05:40→16:14)
[2018-02-24] MEDS: NS FLUSH BAG 500ml IV PRN (05:43)
[2018-02-24] MEDS: ENOXAPARIN 40 MG/0.4 ML INJECTION SQ SCH (08:06)
[2018-02-24] MEDS: FLUCONAZOLE PB 100 MG/50 ML BAG IV SCH (08:06)
[2018-02-24] MEDS: PANTOPRAZOLE 40 MG INJECTION IVP SCH (08:09)
[2018-02-24] MEDS ORDERED: TPN - PHARMACY CONSULT MC ONE (08:55)
--- NOTE | 2018-02-24 09:11 | Progress Note ---
- Date 02/24/18 Subjective: Pt wakes up occasionally and communicates. Currently asleep. Had a period of hypotension with SBP into 80s and 90s, along with sinus tachycardia up to 180s yesterday evening. Was given several IVF boluses, several albumin doses, continuous fluid rate increased to 200ml/hr overnight. HR has gradually improved , now down to 150s, and BP has normalized. UOP had initially declined as well, and has now normalized. +fever, given rectal tylenol. Pain controlled. Objective Vital signs: Temperature 100.5 F H 02/24/18 05:30 Pulse Rate 159 H 02/24/18 06:01 Respiratory Rate 16 02/24/18 07:38 Blood Pressure 117/64 02/24/18 06:00 Pulse Oximetry 94 02/24/18 06:01 Rhythm: Sinus Tachycardia Height/Weight/BMI: Height 5 ft 9 in Weight 71.9 kg Body Mass Index 22.5 - Constitutional Present: mild distress, somnolent - Routine HEENT Exam Head: Present: normocephalic, atraumatic ENT: Present: nares patent, external ear normal - Routine Respiratory Exam Present: CTA bilaterally. Absent: rales, wheezes - Routine Cardiovascular Exam Present: tachycardia. Absent: gallop, rubs - Routine Abdominal Exam Present: distended, firm, ostomy (Ostomy looks good. ). Absent: normoactive bowel sounds - Routine Extremities Exam Present: edema (Mild distal LE edema. ), pulses intact. Absent: cyanosis - Routine Skin Exam Present: intact, dry. Absent: rash - Routine Neurological Exam Somnolent, did not awaken to do neuro exam. Results - Labs CBC & Chem 7: 02/24/18 04:13 02/24/18 04:13 Microbiology Results: Microbiology 02/20/18 20:07 Peripheral/Iv Start Blood Culture - Preliminary No Growth After 3 Days Assessment and Plan Assessment and Plan: Assessment Toxic megacolon Perforated viscus. Severe constipation Severe sepsis Severe iron deficiency anemia. Autism Dental problems ASSESSMENT/PLAN Toxic megacolon with severe constipation and perforated colon: S/P near total colectomy 02/[address] Gomez. Ostomy looks good. Await return of bowel fxn. Approx 2 weeks since good PO intake- will start TPN. Sepsis: Bandemia/leukocytosis, tachycardia. Due to toxic megacolon and perf. Cont zosyn. IVF to support BP. XIOMARA with Oliguria: Likely mild ATN from hypotension 02/23. UOP improving, monitor Cr. Severe PIPER. S/P 1 unit PRBCs 02/21. Will start IV Ferric Gluconate 02/25. FEN: Decrease LR to 125ml/hr. Proph: SCDs. Dispo: Remain in ICU. - Physician Narrative Narrative: Date: 02/24/18 Time: 904 Hospital Course Summary Disclaimer: The visit summary below is not to be considered part of the above Progress Note. Hospital Course: 02/20/18 Admit, CCU. Bowel rest - NPO. Cont IVF - / NS with Na of 144. Consult Dr. Gomez for mgt. Sx management with protonix, morphine, zofran. Cont IVF for tachycardia; sepsis. Repeat lactate. Cont Zosyn for bowel coverage. Follow BC results. Iron w/u in progress. Type & screen ordered. D/W with Dr. Stevens and RN. 02/22. Gastrograffin enema 02/21 with copious stool resulting. However, still with stool in rectal vault. Deferring further management to surgery team, await recs. Cont zosyn given bandemia, tachycardia and concern for toxic megacolon. 02/23 Clinically deteriorating. Going for surgery for perforation/free air. Near total colectomy performed. Became hypotensive, tachycardic with rates into 180s. Aggressively fluid resuscitated. 02/24 UOP, tachycardia improved. Cont abx. Initiate TPN. Monitoring for return of bowel fxn.
--- NOTE | 2018-02-24 11:33 | Operative Note ---
DATE OF PROCEDURE 02/23/2018 SURGEON Nuno Gomez MD MAIL PROCESSING CLERK Nadeem Manning APRN PREOPERATIVE DIAGNOSIS Surgical abdomen, pneumoperitoneum. POSTOPERATIVE DIAGNOSIS Surgical abdomen, pneumoperitoneum, most likely secondary to ischemic colitis with resultant perforation of splenic flexure. History for chronic severe constipation. PROCEDURE Exploratory laparotomy, transverse colectomy, left hemicolectomy, creation of end colostomy and Mendoza's pouch. ANESTHESIA General endotracheal EBL AND FLUIDS Please see chart. BRIEF HISTORY/INDICATIONS Cosmo is a 32-year-old male whom I was asked to see a couple of days ago as a result of his finding of marked colonic distention upon radiograph evaluation and a component of abdominal pain. The patient was found to have a considerable amount of stool burden within his rectum and throughout his entire colon. He was given a Gastrografin enema which did result in a copious amount of stool. Digital examination was performed and he was found to have a very large fecal "ball" at the rectosigmoid junction. This could also be seen radiographically. I had contemplated about perhaps bringing the patient to the operative suite and trying to disimpact him. The large fecal "ball" however was high enough and large enough that one could not "place a finger around it and pull it towards the anal verge". Patient initially showed some improvement following his Gastrografin enema. There was no evidence for colonic obstruction. He then began to develop increasing colonic distention and air. Upon repeat rectal examination, he was passing some liquidy stool and air through the anus. It did appear that he likely had a component of an adynamic colon given his degree of dilatation of his colon which I felt was chronic in nature. Therefore elected to try to promote his colonic activity and he was given neostigmine which did result in additional production of multiple stools. Last evening, however, he began to experience a component of some increasing discomfort and was becoming tachycardic. I was concerned about Cosmo and therefore saw him earlier this morning. Unfortunately upon examination, his abdomen is now "board-like" and radiographically unfortunately the patient was found to have evidence for pneumoperitoneum. It was therefore recommended that he undergo emergent surgical intervention. For completeness please refer to notes included in the patient's chart. FINDINGS Upon laparotomy, the patient was found to have marked distention of his rectum and sigmoid colon. This appeared to be chronic in nature in the fact that the rectal wall was not "thinned out" as one would expect an acute situation but was quite thick and fibrotic in nature. The rectum was perhaps 15 cm or more in diameter. There was no evidence for vascular compromise of the rectum. There was however navid necrosis of the splenic flexure region with a resultant perforation and gross contamination. A transverse colectomy, left hemicolectomy with creation of end colostomy and Mendoza's pouch was subsequently performed. Small bowel was run from the ligament of Treitz to the terminal ileum and was without noted abnormalities. Liver edge was smooth and without nodularities. The gallbladder was normal in its appearance. DESCRIPTION OF PROCEDURE After informed consent was obtained, patient was brought to the operative suite , placed on the table in a supine fashion. The abdomen was then prepped and draped in sterile fashion. Formal time-out was then completed. A standard midline incision was then made from just above the umbilicus up to and into the epigastric region. Underlying skin, subcutaneous tissues and fascia were initially opened with cautery. Next peritoneum was incised and a "mckinney of air" was obtained. A fair amount of fluid/transudate initially was identified. Abdominal cavity was explored. Unfortunately there was a navdi perforation noted within the splenic flexure region of the colon. There was a considerable amount of gross stool contamination at this location. The abdomen was formally explored. The small bowel was carefully inspected from the ligament of Treitz to the terminal ileum. Again no visible or palpable abnormalities were noted within the small bowel. Small bowel was also found to be distended and the contents within the small bowel were advanced back in a retrograde fashion towards the stomach. Contents were then suctioned from the stomach via an NG tube. Stomach was without visible abnormalities. Colon was carefully inspected. Surprisingly the cecum and the ascending colon were not massively dilated as one typically would see with colonic obstruction and was of a smaller diameter actually than that of the left colon and rectum. There was no evidence for vascular compromise of the ascending colon or transverse nor hepatic flexure region. Splenic flexure as stated above was frankly necrotic. I was quite amazed to see how massively dilated the rectum and sigmoid colon were. As stated above, the rectum was at least 15 cm in diameter of not larger. It essentially occupied the entire pelvis. The rectum was not thinned out as one would see in an acute situation, but this appeared to be more of a chronic nature. Palpation externally upon the rectum revealed a very large mass within the rectum which upon further evaluation was determined to be a very large stool "ball" that was perhaps 10-12 cm in diameter. First, attention was focused towards the gross contamination within the left upper quadrant. Multiple laps were utilized and a copious amount of liquidy stool present within the left upper quadrant was attempted to be removed and suctioned. A Best clamp was then placed at the perforation site. Next, attention was directed towards resection of the splenic flexure region. A point along the mid transverse portion of the colon was ascertained. Gastrocolic ligament was divided between the stomach and the transverse colon sequentially between right angle clamps and ligated with 3-0 and 0 Vicryl ties. A small opening was then created within the mesentery just to the left of the middle colic vessels. LAKESHA 75 stapler was then placed across the transverse colon at this location and fired. Next, the white line of Toldt was then incised along the left pericolic gutter and the left colon was reflected medially. Attention was then focused towards the splenic flexure. Dissection of the splenic flexure was quite difficult given the gross contamination that was present and the necrotic changes and the fact that the colon was fairly close to the spleen itself. With slow, careful and meticulous dissection, the splenic flexure was able to be completely mobilized. The mesentery to the distal transverse colon, splenic flexure and initial descending colon was then divided sequentially between right angle clamps and ligated once again with 0 Vicryl and 3-0 Vicryl ties. A LAKESHA 75 stapler was then placed across the midportion of the descending colon and fired. The site of navid necrosis and perforation involving the splenic flexure was then passed off the table as a surgical specimen. The abdominal cavity was then rinsed and the gross contamination was continued to be "cleaned up". Attention was then focused back towards the rectum. The white line of Toldt was continued be incised and the sigmoid colon was reflected medially. The left ureter was identified and preserved in its entirety as the colon was reflected medially. The rectum was massively dilated as stated above. A hand was then placed within the pouch of Niall and the anterior aspect of the rectum was palpated. One could feel a very large mass that was perhaps 10-12 cm in diameter involving the rectum. The mass was quite hard and fixated. Initially I felt that perhaps the mass could be a result of an underlying malignancy that was covered by stool initially. A hand was placed upon the mass and the mass was forcefully brought up along the sacrum and up towards the sacral promontory. The mass "gave way" and it was determined that this mass was actually a very large piece of stool that was almost fixated to the rectum itself. The stool was able to be advanced from the rectum up into the remaining descending colon. This large mass of stool was broken up in pieces and each piece was perhaps 6-7 cm in diameter and continued to be advanced up into the descending colon. The amount of stool that was brought up out of the rectum completely filled the descending colon and there was perhaps 20-30 cm of descending colon that now contained navid stool that was present within the rectum. The mesentery to the remaining descending colon and proximal rectum was then sequentially divided between right angle clamps and ligated with 3-0 and 0 Vicryl ties. Next a LAKESHA 75 stapler was then reloaded and placed across the rectum. Four separate fires were needed to completely transverse the rectum , given its massive diameter. The rectum was quite thickened in nature consistent with chronic process and not that of an acute process as stated above. The proximal rectum and descending colon was then passed off the table as a surgical specimen. Prior areas of dissection were inspected and found to be hemostatic in nature. Next, I elected to proceed with creation of an end colostomy. The white line of Toldt was then incised along the right pericolic gutter and the right colon and hepatic flexure were then completely mobilized medially. Hepatic flexure was mobilized caudally. Middle colic vessels were then divided to allow the mid transverse colon to be brought forth into the right lower quadrant. A point about one-third of the distance between the umbilicus and the right anterior iliac spine was then ascertained upon the skin edge. Evangelina clamp was placed upon this location and retracted anteriorly. A 3 cm circular incision was then made beneath the Evangelina clamp. Dissection was then carried down to the anterior rectus sheath. Anterior rectus sheath was opened with cautery. Hemostat was then placed along the longitudinal fibers of the rectus sheath and gently spread until the posterior rectus sheath could be visualized. Hemostat was then introduced through the posterior rectus sheath and into the peritoneal cavity. Next, 2-3 finger dilatation was performed of this colostomy site. Fauzia clamp was then placed upon the transverse colon and the transverse colon was then brought forth up through the ostomy. Visibly there was no evidence for vascular compromise. I elected however to proceed with further inspection of the colon from a vascular standpoint. Anesthesia was instructed to give intravenous ICG. Laparoscope was then obtained and fluorescence was utilized. To my surprise, the distal segment of the colon that had been brought forth up into the colostomy site was nonviable. It did not fluoresce. Colon was then brought forth back through the newly created colostomy and inspected. One could see good fluorescence of the colon at about the hepatic flexure region. Mesentery was divided up to this point and the LAKESHA 75 stapler was then placed across the colon at the site of fluorescence. This area of transection was just proximal to the hepatic flexure region involving the mid to distal ascending colon region. This new staple line was then brought forth up through the newly created colostomy. Laparoscope was then again utilized and vascular status was again assessed. The new staple line that had been brought forth out through the colostomy fluoresced quite brightly. There was no evidence for vascular compromise at the staple line nor of the remaining ascending colon. Attention was then directed towards closure. Instrument, sponge and needle counts performed and found to be correct. About 6 cm of the colon was able to be brought forth out through the newly created colostomy site within the right lower quadrant. Colon was fixated to the peritoneum by placing three simple interrupted sutures of 3-0 Vicryl. First a small purchase of the fascia and peritoneum was obtained followed by a seromuscular purchase of the colon adjacent to the colostomy site. Fascia was then closed in a running fashion with #1 PDS suture. Skin was then irrigated with Betadine and stephani were placed every couple of centimeters. Skin was not closed tightly. Telfa cholo were placed in Betadine and placed through the skin openings between the stephani. Attention was then directed towards creation of the colostomy. Sterile towel was placed over the incision. The staple line of the colon coming forth through the ostomy site was then transected with curved Light scissors. Colon bled fairly briskly again indicative of adequate blood supply. Next, the colostomy was then matured. First four quadrant sutures were placed by obtaining a full thickness purchase of the transected end of the colon followed by a seromuscular purchase of the colon about 4 cm proximal to the transected end of the colon followed by a subcuticular purchase of the skin. This resulted in a nice everted colostomy. Each quadrant suture was then bisected again by placing additional 3-0 Vicryl sutures in a similar fashion. This resulted in creation of a viable nicely everted end colostomy. Colostomy appliance was then applied. The patient was awakened from his anesthetic and sent back to recovery room once deemed in stable condition. Additionally, it should be noted that Nadeem Manning APRN, was present throughout the entire case and played a pivotal role in providing assistance and exposure during the course of the procedure. SYLVAIN
[2018-02-24] MEDS ORDERED: ALBUTEROL/IPRATROPIUM 2.5mg-0.5mg/3ml NEB IPPB PRN (14:32)
--- NOTE | 2018-02-24 15:42 | Wound Care Progress Note ---
Wound Center Progress Note: Pt seen for ostomy consultation r/t new colostomy. On 02/23/[address] Gomez , pt had an exploratory laparotomy, transverse colectomy/L hemicolectomy which resulted in the creation of a RLQ end colostomy with a Mendoza's pouch. Pt is on the autism spectrum. The majority of education planned with pt's mother and also including pt when applicable. Pt resting in bed. FLACC -0. Pt is being prepared for PICC line placement. Not able to assess pt at this time or visualize ostomy. Mother is off the unit at this time. Spoke with pt's nurse; educational materials left at bedside. Will revisit pt on Tuesday or Tuesday to begin family education on colostomy care.
--- NOTE | 2018-02-24 15:48 | Progress Note ---
DATE 02/24/2018 FINDINGS Cosmo was resting this morning upon my entering his room. Mother was present. Mother states that Cosmo was requesting her earlier today prior to her arrival. OBJECTIVE VITALS: Patient remains tachycardic. T-max 100.5. Please refer to EMR for details. CHEST: Clear to auscultation bilaterally. HEART: Regular rate and rhythm. Normal S1, S2, without gallops, murmurs or clicks. ABDOMEN: His dressing is clean, dry and intact. Colostomy is present within the right lower quadrant. Colostomy is viable. There is some stool contents within the colostomy. Palpation of the abdomen did not reveal it to be "board- like" as noted yesterday. Abdomen was soft but there was incisional tenderness present as one would expect. LABORATORY/RADIOGRAPHIC EVALUATION Patient had a CBC today and his white count was 8.1, did have a left shift as one would expect with 31% neutrophils. Hemoglobin was slightly down at 9.0. ASSESSMENT 32-year-old male status post exploratory laparotomy secondary to pneumoperitoneum from ischemic changes of splenic flexure resulting in necrosis and perforation. Patient with significant fecal peritonitis. The patient stable but remains critically ill. PLAN I did speak with the hospitalist today and had recommended that we go ahead and place a PICC line and begin hyperalimentation. Will continue with ongoing broad -spectrum antibiotics given the finding of significant fecal peritonitis. Will otherwise continue with ongoing current care. I will be leaving town tomorrow and Dr. Hills will be assuming the patient's care. SYLVAIN
[2018-02-24] MEDS: ALBUTEROL/IPRATROPIUM 2.5mg-0.5mg/3ml NEB IPPB PRN (16:00)
[2018-02-24] MEDS: FAT EMULSION 20% 100 ML IV SCH (17:18)
[2018-02-24] MEDS: POTASSIUM ACETATE IV SCH (17:20)
[2018-02-24] MEDS: SODIUM CHLORIDE IV SCH (17:20)
[2018-02-24] MEDS: [UNRECOGNIZED DRUG - OTHER] IV SCH (17:20)
[2018-02-24] MEDS: ALBUTEROL/IPRATROPIUM 2.5mg-0.5mg/3ml NEB IPPB SCH (19:47)
[2018-02-25] MEDS: MORPHINE SULFATE 4mg INJECTION IVP PRN ×5 (00:02→15:52)
[2018-02-25] MEDS: INSULIN ASPART 100unit/ml INJECTION SQ PRN ×3 (01:44→18:28)
[2018-02-25] MEDS: LR 1,000 ML IV SCH (04:43)
[2018-02-25] MEDS: PIPERACILLIN/TAZOBACTAM 3.375 GM in NS 100 ML IV SCH ×4 (05:25→23:51)
[2018-02-25] MEDS: ALBUTEROL/IPRATROPIUM 2.5mg-0.5mg/3ml NEB IPPB SCH ×4 (08:05→20:43)
[2018-02-25] MEDS: ENOXAPARIN 40 MG/0.4 ML INJECTION SQ SCH (08:11)
[2018-02-25] MEDS: PANTOPRAZOLE 40 MG INJECTION IVP SCH (08:11)
[2018-02-25] MEDS: FLUCONAZOLE PB 100 MG/50 ML BAG IV SCH (08:15)
[2018-02-25] MEDS ORDERED: IRON - PHARMACY CONSULT MC ONE (09:06)
[2018-02-25] MEDS ORDERED: POTASSIUM CHLORIDE PREMIX 10 MEQ/100 ML BAG IV SCH (09:15)
[2018-02-25] MEDS ORDERED: SODIUM FERRIC GLUC. COMPLEX 125 MG in NS 100 ML IV ONE ×2 (09:45→15:00)
--- NOTE | 2018-02-25 09:52 | Pharmacy Consult ---
Pharmacy Consult-Iron - Laboratory Information [facility] 02/20/18 02/21/18 02/21/18 20:07 04:11 10:12 Hgb 6.6 L D 8.0 L D Hct 24.4 L Iron 11 L TIBC 342 % Saturation 3 L 02/22/18 02/23/18 02/23/18 04:58 03:53 17:29 Hgb 7.8 L 8.9 L D 12.7 L D Hct 27.6 L D 30.7 L D 42.3 D Iron TIBC % Saturation 02/24/18 02/25/18 04:13 04:20 Hgb 9.0 L D 6.7 L D Hct 30.6 L D 22.9 L D Iron TIBC % Saturation - Consult Information iRON consult noted by Dr Rocha for Mr Albright, who is 32 yo and weighs 71.9kg. Due to the nation wide shortage of iron dextrran. Sodium ferric gluconate ( Venofer) will be administered. Thank you.
[2018-02-25] MEDS ORDERED: POTASSIUM PHOSPHATE (mMol) 30 MMOL in NS 500ml 500 ML IV SCH (10:00)
--- NOTE | 2018-02-25 10:21 | Progress Note ---
- Date 02/25/18 Tachycardia continues to improve. Mild ostomy output. No N/V. NGT to LIS. Intermittently febrile, receiving rectal tylenol. No other acute issues. No bleeding from ostomy or elsewhere noted. Objective Vital signs: Temperature 98.7 F 02/25/18 04:00 Pulse Rate 129 H 02/25/18 09:00 Respiratory Rate 13 02/25/18 08:25 Blood Pressure 120/72 02/25/18 07:00 Pulse Oximetry 97 02/25/18 07:01 Rhythm: Sinus Tachycardia Height/Weight/BMI: Height 5 ft 9 in Weight 71.9 kg Body Mass Index 22.5 - Constitutional Present: no acute distress - Routine HEENT Exam Head: Present: normocephalic, atraumatic Eye: Present: EOMI, PERRL ENT: Present: mucous membranes dry - Routine Respiratory Exam Present: CTA bilaterally. Absent: wheezes, crackles - Routine Cardiovascular Exam Present: S1, S2, tachycardia. Absent: murmur - Routine Abdominal Exam Present: firm, ostomy (+liquid brown stool in ostomy. ). Absent: normoactive bowel sounds (Absent bowel sounds. ) - Routine Extremities Exam Present: no edema, pulses intact. Absent: edema, joint swelling - Routine Skin Exam Present: intact, dry, warm. Absent: rash - Routine Neurological Exam Present: alert. Absent: altered mental status (Baseline mental status. ) Results - Labs CBC & Chem 7: 02/25/18 04:20 02/25/18 04:20 Microbiology Results: Microbiology 02/20/18 20:07 Peripheral/Iv Start Blood Culture - Preliminary No Growth After 4 Days Assessment and Plan Assessment and Plan: Assessment Toxic megacolon Perforated viscus. Severe constipation Severe sepsis Severe iron deficiency anemia. Autism Dental problems Hypophosphatemia Hypokalemia XIOMARA ASSESSMENT/PLAN Toxic megacolon with severe constipation and perforated colon: S/P near total colectomy 02/[address] Gomez. Ostomy looks good, + ostomy output. Absent bowel sounds. Sips and chips, clamp NGT today per surgery. Approx 2 weeks since good PO intake- TPN started 02/24. Sepsis: Bandemia/leukocytosis, tachycardia. Due to toxic megacolon and perf. Cont zosyn. Tachycardia slowly improving. Hypophosphatemia 30mmol Kphos HypoK 3.4, give 30mmol Kphos. Severe PIPER, anemia. S/P 1 unit PRBCs 02/21, transfuse another 02/25. Will start IV Ferric Gluconate today, 02/25. XIOMARA with Oliguria: Resolved. FEN: Stop LR. TPN started 02/24. Proph: SCDs. Dispo: Remain in ICU, critical condition. - Physician Narrative Narrative: Date: 02/25/18 Time: 1018 Hospital Course Summary Disclaimer: The visit summary below is not to be considered part of the above Progress Note. Hospital Course: 02/20/18 Admit, CCU. Bowel rest - NPO. Cont IVF - / NS with Na of 144. Consult Dr. Gomez for mgt. Sx management with protonix, morphine, zofran. Cont IVF for tachycardia; sepsis. Repeat lactate. Cont Zosyn for bowel coverage. Follow BC results. Iron w/u in progress. Type & screen ordered. D/W with Dr. Stevens and RN. 02/22. Gastrograffin enema 02/21 with copious stool resulting. However, still with stool in rectal vault. Deferring further management to surgery team, await recs. Cont zosyn given bandemia, tachycardia and concern for toxic megacolon. 02/23 Clinically deteriorating. Going for surgery for perforation/free air. Near total colectomy performed. Became hypotensive, tachycardic with rates into 180s. Aggressively fluid resuscitated. 02/24 UOP, tachycardia improved. Cont abx. Initiate TPN. Monitoring for return of bowel fxn. 02/25 Given Kphos Transfused another 1U PRBCs. Stopped LR. Surgery to trial clamping NGT. Intermittently febrile- rectal tylenol.
--- NOTE | 2018-02-25 11:37 | Progress Note ---
DATE OF VISIT 02/25/2018 REASON FOR VISIT Covering surgical care for Dr. Gomez. SUBJECTIVE Arslan has been doing better per his nurse. She had been told that his heart rate had come down from the 140s to the 130s overnight. He was up in the chair for about an hour earlier today and tolerated this well. He had been started on sips and chips by Dr. Gomez by telephone this morning and he has tolerated this well. He asks for ice chips frequently. He does have a unit of blood ordered this morning. OBJECTIVE VITAL SIGNS: See EMR. Heart rate was in the 130s. GENERAL: The patient is awake and alert. He is lying in bed in no acute distress. ABDOMEN: Soft, appropriately tender. His midline dressing was changed and had some drainage in the ABDs but no significant drainage. Telfa cholo were in place. His colostomy has fairly significant output. The mucosa is congested as expected. It does appear viable. LABORATORY DATA White blood cell count 5.6, hemoglobin 6.7, neutrophils 63% bands, 31%. ASSESSMENT 1. Postop day #2 status post exploratory laparotomy with resection of transverse and left colon and Mendoza's procedure for feculent peritonitis resulting from perforation due to ischemic changes of the splenic flexure. 2. Autism spectrum. PLAN 1. Continue IV Zosyn and Diflucan. 2. Continue TPN. 3. I do think his NG tube could be clamped today to see how he tolerates this with initiation of sips and chips. [facility]
[2018-02-25] MEDS: NS FLUSH BAG 500ml IV PRN (11:54)
[2018-02-25] MEDS: ACETAMINOPHEN 650 MG SUPPOSITORY PR PRN (12:40)
[2018-02-25] MEDS ORDERED: ALBUTEROL/IPRATROPIUM 2.5mg-0.5mg/3ml NEB IPPB SCH (13:12)
[2018-02-25] MEDS: FAT EMULSION 20% 100 ML IV SCH (15:30)
[2018-02-25] MEDS: SODIUM CHLORIDE IV SCH (15:31)
[2018-02-25] MEDS: [UNRECOGNIZED DRUG - OTHER] IV SCH (15:31)
[2018-02-25] MEDS: POTASSIUM ACETATE IV SCH (15:31)
[2018-02-25] MEDS: SALINE FLUSH 10ml SYRINGE IVF PRN ×2 (15:53→16:46)
[2018-02-25] MEDS: TPN IV SCH (16:00)
[2018-02-25] MEDS: [UNRECOGNIZED DRUG - OTHER] IV SCH (16:00)
[2018-02-26] MEDS: INSULIN ASPART 100unit/ml INJECTION SQ PRN ×5 (00:10→23:58)
[2018-02-26] MEDS: ALBUTEROL/IPRATROPIUM 2.5mg-0.5mg/3ml NEB IPPB SCH ×7 (00:20→21:12)
[2018-02-26] MEDS: MORPHINE SULFATE 4mg INJECTION IVP PRN ×6 (02:27→23:24)
[2018-02-26] MEDS: PIPERACILLIN/TAZOBACTAM 3.375 GM in NS 100 ML IV SCH ×4 (05:13→23:17)
[2018-02-26] MEDS: ACETAMINOPHEN 650 MG SUPPOSITORY PR PRN ×2 (07:30→20:10)
[2018-02-26] MEDS: PANTOPRAZOLE 40 MG INJECTION IVP SCH (08:38)
[2018-02-26] MEDS: FLUCONAZOLE PB 100 MG/50 ML BAG IV SCH (08:38)
[2018-02-26] MEDS: ENOXAPARIN 40 MG/0.4 ML INJECTION SQ SCH (08:38)
--- NOTE | 2018-02-26 09:08 | Progress Note ---
- Date 02/26/18 Did have fever overnight. Has tolerated NGT clamping. No O2 requirements. No N/V /CP. Hasn't been able to perform IS very well. Objective Vital signs: Temperature 100.6 F H 02/26/18 04:00 Pulse Rate 144 H 02/26/18 08:10 Respiratory Rate 27 H 02/26/18 08:10 Blood Pressure 114/72 02/26/18 06:00 Pulse Oximetry 96 02/26/18 08:10 Rhythm: Sinus Tachycardia Height/Weight/BMI: Height 5 ft 9 in Weight 70.8 kg Body Mass Index 22.5 - Constitutional Present: no acute distress - Routine HEENT Exam Head: Present: normocephalic, atraumatic Eye: Present: EOMI, PERRL ENT: Present: mucous membranes dry, nares patent - Routine Respiratory Exam Present: diminished air movement (Very diminished breath sounds left base. ) - Routine Cardiovascular Exam Present: no murmur, tachycardia - Routine Abdominal Exam Present: soft (Dressing in place. [place] drains with serous output. Ostomy with fluid output. ), non distended - Routine Extremities Exam Present: no edema, non tender - Routine Skin Exam Present: intact, dry. Absent: rash - Routine Neurological Exam Present: alert (Minimal responsiveness to questions, which is his baseline. ) - Routine Psychiatric Exam Present: unable to assess Results - Labs CBC & Chem 7: 02/26/18 04:25 02/26/18 04:25 Microbiology Results: Microbiology 02/20/18 20:07 Peripheral/Iv Start Blood Culture - Final No Growth After 5 Days - Impressions CXR 02/25: Per my read, has LLL atalectasis vs infiltrate, otherwise normal. 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 Severe constipation Severe sepsis Severe iron deficiency anemia. Autism Dental problems Hypophosphatemia Hypokalemia XIOMARA LLL atalectasis ASSESSMENT/PLAN Toxic megacolon with severe constipation and perforated colon: S/P near total colectomy 02/[address] Gomez. Ostomy looks good, + liquid ostomy output. Absent bowel sounds. Sips and chips, clamped NGT 02/25 per surgery, no N/V. Approx 2 weeks since good PO intake- TPN started 02/24. Cont zosyn. Sepsis: Bandemia/leukocytosis, tachycardia. Due to toxic megacolon and perf. Cont zosyn. Tachycardia slowly improving. LLL atalectasis vs infiltrate Diminished breath sounds left base. No O2 reqirement, No productive cough. IS ordered, pt having difficult time participating with IS. CXR in am. If getting worse, consider BiPAP for positive pressure Fever Atalectasis vs residual intra-abd infection/abscess vs PNA with organism resistant to zosyn. UA neg. Repeat bld cx 02/23 NGTD. Cont current tx for now, if clinically worsens, consider CT abd/pelvis with inclusion of LLL to eval for abscess, PNA. CXR in am. Tx with rectal tylenol. Hypophosphatemia Phos 1.1 ---> 1.5. 30mmol Kphos 02/25 and repeat today. HypoK 3.1, give 30mmol Kphos, 20mEq KCl. Check Mg in am. Severe PIPER, anemia. Ferrlicit dose given 02/25, plan to repeat dose 03/04. S/P 1 unit PRBCs 02/21, 02/25. XIOMARA with Oliguria: Resolved. FEN: TPN started 02/24, pharmacy consulted. Replace lytes as above. Proph: Lovenox Dispo: Remain in ICU for now. - Physician Narrative Narrative: Date: 02/26/18 Time: 0901 Hospital Course Summary Disclaimer: The visit summary below is not to be considered part of the above Progress Note. Hospital Course: 02/20/18 Admit, CCU. Bowel rest - NPO. Cont IVF - 1/2 NS with Na of 144. Consult Dr. Gomez for mgt. Sx management with protonix, morphine, zofran. Cont IVF for tachycardia; sepsis. Repeat lactate. Cont Zosyn for bowel coverage. Follow BC results. Iron w/u in progress. Type & screen ordered. D/W with Dr. Stevens and RN. 02/22. Gastrograffin enema 02/21 with copious stool resulting. However, still with stool in rectal vault. Deferring further management to surgery team, await recs. Cont zosyn given bandemia, tachycardia and concern for toxic megacolon. 02/23 Clinically deteriorating. Going for surgery for perforation/free air. Near total colectomy performed. Became hypotensive, tachycardic with rates into 180s. Aggressively fluid resuscitated. 02/24 UOP, tachycardia improved. Cont abx. Initiate TPN. Monitoring for return of bowel fxn. 02/25 Given Kphos Transfused another 1U PRBCs. Stopped LR. Surgery to trial clamping NGT. Intermittently febrile- rectal tylenol.
[2018-02-26] MEDS ORDERED: POTASSIUM PHOSPHATE IV SCH (09:30)
[2018-02-26] MEDS ORDERED: NS IV SCH (09:30)
--- NOTE | 2018-02-26 10:04 | XRay Report ---
Indication: Fever PROCEDURE: XR chest 1V: Encounter: Initial Comparison: September 15, 2016 Findings: Small to moderate left pleural effusion. Hypoinflation. Nasogastric tube extending below the diaphragm. Right PICC line in place with the tip projecting over the expected cavoatrial junction. No pneumothorax. Heart size and mediastinal contours are within normal limits. Surgical drain and stephani seen in the upper quadrant of the abdomen. Impression: Left pleural effusion with hypoinflation and basilar atelectasis. .
[2018-02-26] MEDS: [UNRECOGNIZED DRUG - OTHER] IV SCH (13:43)
[2018-02-26] MEDS: SODIUM CHLORIDE IV SCH (13:43)
[2018-02-26] MEDS: POTASSIUM ACETATE IV SCH (13:43)
[2018-02-26] MEDS: SALINE FLUSH 10ml SYRINGE IVF PRN ×2 (13:44→20:11)
[2018-02-26] MEDS: FAT EMULSION 20% 100 ML IV SCH ×2 (13:44→15:34)
[2018-02-26] MEDS ORDERED: POTASSIUM CHLORIDE PREMIX 10 MEQ/100 ML BAG IV ONE ×2 (15:00→17:40)
[2018-02-26] MEDS: ONDANSETRON 4 MG/2 ML INJECTION IVP PRN (20:11)
[2018-02-26] MEDS ORDERED: FALL RISK - PHARMACY CONSULT MC ONE (20:35)
[2018-02-26] MEDS: [UNRECOGNIZED DRUG - OTHER] IV SCH (21:43)
[2018-02-26] MEDS: TPN IV SCH (21:43)
[2018-02-26] MEDS: NS FLUSH BAG 500ml IV PRN (23:18)
[2018-02-27] MEDS: ALBUTEROL/IPRATROPIUM 2.5mg-0.5mg/3ml NEB IPPB SCH ×6 (01:22→21:03)
[2018-02-27] MEDS: MORPHINE SULFATE 4mg INJECTION IVP PRN ×3 (01:34→20:53)
[2018-02-27] MEDS: SALINE FLUSH 10ml SYRINGE IVF PRN ×5 (01:35→20:54)
[2018-02-27] MEDS: ACETAMINOPHEN 650 MG SUPPOSITORY PR PRN ×2 (02:55→19:38)
[2018-02-27] MEDS: PIPERACILLIN/TAZOBACTAM 3.375 GM in NS 100 ML IV SCH ×4 (05:04→23:04)
[2018-02-27] MEDS: INSULIN ASPART 100unit/ml INJECTION SQ PRN ×3 (06:15→18:24)
[2018-02-27] MEDS: ENOXAPARIN 40 MG/0.4 ML INJECTION SQ SCH (08:32)
[2018-02-27] MEDS: FLUCONAZOLE PB 100 MG/50 ML BAG IV SCH (08:32)
[2018-02-27] MEDS: PANTOPRAZOLE 40 MG INJECTION IVP SCH (08:33)
--- NOTE | 2018-02-27 08:52 | Pharmacy Consult-TPN/PPN ---
Pharmacy Consult-TPN/PPN - Laboratory Information Chemistry Turbidity < 20 (0-20) 02/27/18 04:07 Sodium 138 MEQ/L (136-146) 02/27/18 04:07 Potassium 3.4 MEQ/L (3.6-5) L 02/27/18 04:07 Chloride 105 MEQ/L (98-107) 02/27/18 04:07 Carbon Dioxide 27 MEQ/L (22-30) 02/27/18 04:07 Anion Gap 6 meq/L (5-15) 02/27/18 04:07 BUN 13.0 MG/DL (9-20) 02/27/18 04:07 Creatinine 0.5 mg/dL (0.8-1.5) L 02/27/18 04:07 GFR Calculation 195 02/27/18 04:07 BUN/Creatinine Ratio 26 RATIO (6-26) 02/27/18 04:07 Glucose 120 MG/DL (75-110) H 02/27/18 04:07 Glucometer 191 mg/dL (65-110) 02/27/18 06:12 Calculated Osmolality 267 MOSM/KG (261-280) 02/27/18 04:07 Calcium 7.3 MG/DL (8.4-10.2) L 02/27/18 04:07 Ionized Calcium [place] 1.11 MMOL/L (1.12-1.32) L 02/25/18 04:20 Phosphorus 2.4 MG/DL (2.5-4.5) L 02/27/18 04:07 Magnesium 2.2 MG/DL (1.6-2.3) 02/27/18 04:07 Iron 11 ug/dL (49-181) L 02/20/18 20:07 TIBC 342 ug/dL (261-497) 02/20/18 20:07 % Saturation 3 % (13-59) L 02/20/18 20:07 Ferritin 2.44 ng/mL (17-464) L 02/20/18 20:07 Total Bilirubin 0.70 MG/DL (0.20-1.30) 02/21/18 04:11 Icterus Index < 2 (0-7) 02/27/18 04:07 AST 17 U/L (17-59) 02/21/18 04:11 ALT 8 U/L (1-50) 02/21/18 04:11 Alkaline Phosphatase 72 U/L (38-126) 02/21/18 04:11 Total Protein 6.9 g/dL (6.3-8.2) 02/21/18 04:11 Albumin 2.3 g/dL (3.5-5.0) L 02/27/18 04:07 Globulin 2.7 G/DL (2.4-3.6) 02/21/18 04:11 Albumin/Globulin Ratio 1.6 RATIO (1.1-2.2) 02/21/18 04:11 Lipase 21 U/L (23-300) L 02/20/18 15:25 Plasma Lactate 1.3 MMOL/L (0.6-2.2) 02/24/18 04:13 Vitamin B12 367 pg/mL (239-931) 02/20/18 20:07 Procalcitonin < 0.05 NG/ML 02/21/18 04:11 Specimen Hemolysis < 15 (0-25) 02/27/18 04:07 - Consult Information The potassium was a little low so I increased the potassium acetate to 60 meq per bag. The pharmacy will continue to monitor the TPN and the electrolytes and adjust accordingly. Thanks, Gonzales Russell, Pharmacist
--- NOTE | 2018-02-27 09:55 | Progress Note ---
DATE OF VISIT 02/26/2018 REASON FOR VISIT Covering postoperative care for Dr. Gomez. MANUEL Wilburn was just up walking a short distance in the unit. He has been up in a chair as well. He has tolerated the sips and chips with his NG tube clamped since yesterday. He did have a fever overnight. OBJECTIVE VITAL SIGNS: Pulse 128. Respiratory rate 24. T-max 101.1. T-current 98.7. Oxygen saturation 100% on room air. GENERAL: The patient is awake and alert. He is in no acute distress. ABDOMEN: Soft, appropriately tender. His colostomy shows some ongoing congestion but good perfusion of the mucosa and significant output. LABORATORY DATA With blood cell count 4.0 with 63% neutrophils and 17% bands (down from 31%). ASSESSMENT 1. Postop day #3 status post exploratory laparotomy with resection of the transverse and left colon and a Mendoza's procedure for feculent peritonitis caused by perforation of the splenic flexure due to ischemic changes. 2. Autism spectrum. PLAN 1. Advanced to clear liquid diet. 2. I will keep his NG tube in position in case he develops nausea or vomiting. 3. Continue TPN for nutrition. 4. Continue IV Zosyn and Diflucan given the feculent peritonitis. MTDD
--- NOTE | 2018-02-27 10:18 | XRay Report ---
EXAM: XR chest 1V COMPARISON: Chest x-ray dated 02/25/2018. HISTORY: LLL decreased breath sounds, PNA vs atalectasis . FINDINGS: Stable mild left pleural effusion and compressive atelectasis and mild prominence of the pulmonary vessels. There is no pneumothorax. The cardiac silhouette is stable. No mediastinal abnormality is present. Stable right-sided PICC line and feeding tube. IMPRESSION: No interval change compared to the prior study. .
[2018-02-27] MEDS: SODIUM CHLORIDE IV SCH ×2 (10:27→10:46)
[2018-02-27] MEDS: [UNRECOGNIZED DRUG - OTHER] IV SCH (10:27)
[2018-02-27] MEDS: POTASSIUM ACETATE IV SCH ×2 (10:27→10:46)
[2018-02-27] MEDS: [UNRECOGNIZED DRUG - OTHER] IV SCH (10:46)
[2018-02-27] MEDS: METOCLOPRAMIDE 10mg/2ml INJECTION IVP PRN (12:03)
[2018-02-27] MEDS: FAT EMULSION 20% 100 ML IV SCH (16:06)
--- NOTE | 2018-02-27 17:41 | Progress Note ---
- Date 02/27/18 Subjective: Arslan was seen earlier today after NG suction had been resumed. He had an episode of emesis after NG suction had been discontinued for a period of time and liquids tried. Nursing reports copious output per the colostomy overnight but rated output has slowed down today. Patient was more verbal this morning when his mother was not at bedside although speech is minimal. Tachycardia has persisted and low-grade fever with a maximum of 101 occurred overnight. His mother was present when I saw the patient and she reported that she has not noticed any cough nor is he appeared short of breath. He was up in a chair earlier today and ambulated in the halls with assistance. Objective Vital signs: Temperature 99.5 F 02/27/18 15:00 Pulse Rate 145 H 02/27/18 16:00 Respiratory Rate 24 02/27/18 17:06 Blood Pressure 116/72 02/27/18 14:00 Pulse Oximetry 98 -RA 02/27/18 14:45 NAD, grunts yes/no occasionally in responds to questions but does not elaborate beyond that Conjunctiva clear, EOMI, sclera anicteric; does not open mouth to evaluate oropharynx, neck supple and without adenopathy Respirations nonlabored, good airflow, breath sounds slightly coarse anteriorly without focal abnormalities Regular rhythm, S1-S2, persistent tachycardia Abdomen moderately distended, soft, nontender, stoma pink, NG --> LIS Trace edema 4 extremities Skin without rash MAEW Rhythm: Sinus Tachycardia Height/Weight/BMI: Height 1.75 m Weight 70.4 kg Body Mass Index 22.5 Results - Labs CBC & Chem 7: 02/27/18 04:07 02/27/18 04:07 Labs: Calcium 7.3, albumin 2.3, magnesium 2.2, phosphorus 2.4 Microbiology Results: Microbiology 02/20/18 20:07 Peripheral/Iv Start Blood Culture - Final No Growth After 5 Days - Imaging and Cardiology Chest x-ray Status: image reviewed by me (left pleural effusion and compressive atelectasis) Assessment and Plan (1) Megacolon Problem details: Toxic megacolon Current visit: Yes Status: Acute (2) Perforation of colon Problem details: Perforation of the splenic flexure due to ischemic changes Current visit: Yes Status: Acute Assessment and Plan: Assessment 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 Feculent peritonitis Tachycardia Severe constipation Severe sepsis Fever Severe iron deficiency anemia. Autism Dental problems Hypophosphatemia Hypokalemia XIOMARA LLL atalectasis Acute kidney injury with oliguria-postop Plan: Remains on TPN, tolerating limited oral liquids earlier today however resultant emesis has required resumption of NG suction. Good output per ostomy; 2400 mL output reported during prior 24-hour period. Hemoglobin drifting down, ongoing hypokalemia-post being reassessed this afternoon. Potassium increased and TPN but may require supplemental boluses due to potassium lost in stool and emesis. Persistent tachycardia-may require additional blood transfusion. Remains on Zosyn for peritonitis; chest x-ray with pleural effusion but no evidence of pneumonia. May require repeat CT abdomen/pelvis to exclude intra-abdominal abscess. Phosphorus improving progressively; continue to monitor daily. Ferrlicit dose given 02/25, plan to repeat dose 03/04. S/P 1 unit PRBCs 02/21, . Renal function stable; hemodynamically stable. Discussed with nursing to provide supplemental history; mother updated. Discussed with Dr. Hills. DVT Prophylaxis: SCD's, Lovenox Resuscitation Status: Full Code - Physician Narrative Narrative: Date: 02/27/18 Time: 8 Hospital Course Summary Disclaimer: The visit summary below is not to be considered part of the above Progress Note. Hospital Course: 02/20/18 Admit, CCU. Bowel rest - NPO. Cont IVF - 1/2 NS with Na of 144. Consult Dr. Gomez for mgt. Sx management with protonix, morphine, zofran. Cont IVF for tachycardia; sepsis. Repeat lactate. Cont Zosyn for bowel coverage. Follow BC results. Iron w/u in progress. Type & screen ordered. D/W with Dr. Stevens and RN. 02/22. Gastrograffin enema 02/21 with copious stool resulting. However, still with stool in rectal vault. Deferring further management to surgery team, await recs. Cont zosyn given bandemia, tachycardia and concern for toxic megacolon. 02/23 Clinically deteriorating. Going for surgery for perforation/free air. Near total colectomy performed. Became hypotensive, tachycardic with rates into 180s. Aggressively fluid resuscitated. 02/24 UOP, tachycardia improved. Cont abx. Initiate TPN. Monitoring for return of bowel fxn. 02/25 Given Kphos Transfused another 1U PRBCs. Stopped LR. Surgery to trial clamping NGT. Intermittently febrile- rectal tylenol. 02/27/18 Remains on TPN, tolerating limited oral liquids earlier today however resultant emesis has required resumption of NG suction. Good output per ostomy; 2400 mL output reported during prior 24-hour period. Hemoglobin drifting down, ongoing hypokalemia-post being reassessed this afternoon. Potassium increased and TPN but may require supplemental boluses due to potassium lost in stool and emesis. Persistent tachycardia-may require additional blood transfusion. Remains on Zosyn for peritonitis; chest x-ray with pleural effusion but no evidence of pneumonia. May require repeat CT abdomen/pelvis to exclude intra-abdominal abscess.
[2018-02-27] MEDS: NS FLUSH BAG 500ml IV PRN (23:05)
[2018-02-28] MEDS: MORPHINE SULFATE 4mg INJECTION IVP PRN ×3 (00:13→23:34)
[2018-02-28] MEDS: INSULIN ASPART 100unit/ml INJECTION SQ PRN ×2 (01:02→06:14)
[2018-02-28] MEDS: ALBUTEROL/IPRATROPIUM 2.5mg-0.5mg/3ml NEB IPPB SCH ×4 (01:36→18:38)
[2018-02-28] MEDS: SALINE FLUSH 10ml SYRINGE IVF PRN (04:23)
[2018-02-28] MEDS: PIPERACILLIN/TAZOBACTAM 3.375 GM in NS 100 ML IV SCH ×3 (04:23→20:48)
[2018-02-28] MEDS: ENOXAPARIN 40 MG/0.4 ML INJECTION SQ SCH (08:45)
[2018-02-28] MEDS: PANTOPRAZOLE 40 MG INJECTION IVP SCH (08:45)
[2018-02-28] MEDS: SODIUM CHLORIDE IV SCH (08:46)
[2018-02-28] MEDS: POTASSIUM ACETATE IV SCH (08:46)
[2018-02-28] MEDS: [UNRECOGNIZED DRUG - OTHER] IV SCH (08:46)
[2018-02-28] MEDS: FLUCONAZOLE PB 100 MG/50 ML BAG IV SCH (09:00)
--- NOTE | 2018-02-28 11:55 | Progress Note ---
DATE OF VISIT 02/27/2018 REASON FOR VISIT Covering postoperative care for Dr. Gomez. MANUEL Wilburn had some vomiting earlier today and the nurse reconnected his NG tube to low intermittent suction. He has had fairly significant output from the NG tube. He continues to have fairly significant colostomy output as well. OBJECTIVE VITAL SIGNS: Temperature 99.5. Pulse 145. Blood pressure 106/71. Respiratory rate 22. Oxygen saturation 98%. GENERAL: The patient is awake and alert. He is seated in the chair and is in no acute distress. ABDOMEN: Soft, minimally tender. His ostomy shows good perfusion and output. Drain shows serosanguineous output. His Telfa cholo are in place with some drainage on the overlying dressing. LABORATORY DATA White blood cell count 7.0 with 85% neutrophils. IMPRESSION 1. Postop day #4 status post exploratory laparotomy with resection of the transverse and left colon with a Mendoza's procedure for feculent peritonitis due to perforation in the splenic flexure from ischemic changes. 2. Autism spectrum. PLAN 1. Return to sips and chips diet. 2. NG tube to low intermittent suction for now. 3. Continue TPN for nutrition until enteral nutrition can be advanced. 4. Continue IV Zosyn and Diflucan given his history of feculent peritonitis. MTDD
[2018-02-28] MEDS: FAT EMULSION 20% 100 ML IV SCH (17:01)
--- NOTE | 2018-02-28 17:19 | Wound Care Progress Note ---
Wound Center Progress Note: Pt seen for ostomy consult r/t new colostomy. Pt lying in bed, no complaints of pain. Parents at bedside. Education provided to parents regarding stoma creation , colostomy, pouching systems, when and how to change the pouch, how to cut wafer, fitting wafer and pouch, diet, activity, showering, and care of peristomal skin. Answered all questions; went thru colostomy book that was provided with starter colostomy kit. Discussed with parents if son can help care for ostomy, and offered some suggestions for his future participation in ostomy care. Pt is signed up with [employer]'s [employer] program, privacy agreement signed by parents. Nurse states the pouching system is secure without leaks. Stoma and peristomal skin not visualized at this time. Will continue education with parents and have them participate with return demonstration how to cut wafer, apply pouching system, and empty pouching system.
[2018-02-28] MEDS ORDERED: IOHEXOL 300mg/ml 100ml INJECTION ONE (17:30)
[2018-02-28] MEDS ORDERED: SALINE FLUSH 10ml SYRINGE ONE (17:31)
--- NOTE | 2018-02-28 21:11 | Progress Note ---
- Date 02/28/18 Subjective: Arslan was seen this afternoon with both parents at bedside. He was sitting on the edge of the bed and walked into the hallway and back to the bed while I was present. He denied dyspnea, palpitations, nausea, or pain. Fevers were again reported overnight as was significant NG output and output per ostomy. Patient reports he's lightheaded when he ambulates and requested to go back to bed as soon as he returned to his room from his brief walk. Nursing reports persistent tachycardia with rate increasing when patient sits on the edge of the bed or ambulates. Objective Vital signs: Temperature 99.2 F 02/28/18 20:00 Pulse Rate 151 H 02/28/18 20:00 Respiratory Rate 27 H 02/28/18 20:00 Blood Pressure 103/71 02/28/18 20:00 Pulse Oximetry 93 - RA 02/28/18 20:00 Maximum temperature prior 24 hours 101.8 I/O 3015/6506 (ostomy-2975, NG-2049) Weight 3 kg below admission weight Chronically ill-appearing male, NAD, soft spoken Conjunctiva clear, sclera anicteric, respirations nonlabored with good airflow, decreased breath sounds at the left base posteriorly, no wheezing Regular rhythm, S1-S2, moderate tachycardia Abdomen soft, distended, nontender, no bowel sounds appreciated Extremities with trace edema Skin without generalized rash Moving all extremities well Rhythm: Sinus Tachycardia Height/Weight/BMI: Height 1.75 m Weight 65.8 kg Body Mass Index 22.5 Results - Labs CBC & Chem 7: 02/28/18 04:21 02/28/18 04:21 Labs: S69 L15 M12 M4 Calcium 7.3, albumin 2.4, phosphorus 2.9 Microbiology Results: Microbiology 02/20/18 20:07 Peripheral/Iv Start Blood Culture - Final No Growth After 5 Days - Imaging and Cardiology CT scan - abdomen Status: image reviewed by me (CT abdomen/pelvis obtained with IV contrast demonstrates a moderate fluid collection in the left upper quadrant posterior to surgical drain-suggestive of abscess and multiple smaller fluid collections throughout the abdomen; moderate left pleural effusion with adjacent compressive atelectasis. 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 Feculent peritonitis Subdiaphragmatic abscess, left upper quadrant Tachycardia Severe constipation Severe sepsis Fever Severe iron deficiency anemia. Autism Dental problems Hypophosphatemia Hypokalemia XIOMARA LLL atalectasis Acute kidney injury with oliguria-postop Plan: Remains on TPN, electrolytes stable. Good urine output per ostomy but continues to have high volume output per NG. Output significantly higher than input, weight down, ongoing tachycardia--> 1 L fluid bolus tonight. Anticipate ongoing need for fluids to match fluid losses. CT abdomen/pelvis discussed with radiology this evening and subsequently with Dr. Hills; will review further with radiology tomorrow to determine if drainage can be performed of the subphrenic abscess percutaneously or if surgical drainage/washout will be needed due to presence of multiple smaller fluid collections suggestive of early abscesses. Dr. Hills notified patient 's parents of findings. Hemoglobin continues to drift down very slowly, may be slightly hemoconcentrated at present. Type and screen in a.m. Anticipating transfusion in the next 1-2 days. Ferrlicit dose given 02/25, plan to repeat dose 03/04. S/P 1 unit PRBCs 02/21, . Discussed with nursing to provide supplemental history; mother/father updated. Discussed with Dr. Hills. DVT Prophylaxis: Lovenox GI Prophylaxis: Protonix Resuscitation Status: Full Code - Physician Narrative Narrative: Date: 02/28/18 Time: 2106 Hospital Course Summary Disclaimer: The visit summary below is not to be considered part of the above Progress Note. Hospital Course: 02/20/18 Admit, CCU. Bowel rest - NPO. Cont IVF - 1/2 NS with Na of 144. Consult Dr. Gomez for mgt. Sx management with protonix, morphine, zofran. Cont IVF for tachycardia; sepsis. Repeat lactate. Cont Zosyn for bowel coverage. Follow BC results. Iron w/u in progress. Type & screen ordered. D/W with Dr. Stevens and RN. 02/22. Gastrograffin enema 02/21 with copious stool resulting. However, still with stool in rectal vault. Deferring further management to surgery team, await recs. Cont zosyn given bandemia, tachycardia and concern for toxic megacolon. 02/23 Clinically deteriorating. Going for surgery for perforation/free air. Near total colectomy performed. Became hypotensive, tachycardic with rates into 180s. Aggressively fluid resuscitated. 02/24 UOP, tachycardia improved. Cont abx. Initiate TPN. Monitoring for return of bowel fxn. 02/25 Given Kphos Transfused another 1U PRBCs. Stopped LR. Surgery to trial clamping NGT. Intermittently febrile- rectal tylenol. 02/27/18 Remains on TPN, tolerating limited oral liquids earlier today however resultant emesis has required resumption of NG suction. Good output per ostomy; 2400 mL output reported during prior 24-hour period. Hemoglobin drifting down, ongoing hypokalemia-post being reassessed this afternoon. Potassium increased and TPN but may require supplemental boluses due to potassium lost in stool and emesis. Persistent tachycardia-may require additional blood transfusion. Remains on Zosyn for peritonitis; chest x-ray with pleural effusion but no evidence of pneumonia. May require repeat CT abdomen/pelvis to exclude intra-abdominal abscess. 02/28/18 Remains on TPN, electrolytes stable. Good urine output per ostomy but continues to have high volume output per NG. Output significantly higher than input, weight down, ongoing tachycardia--> 1 L fluid bolus tonight. Anticipate ongoing need for fluids to match fluid losses. CT abdomen/pelvis discussed with radiology this evening and subsequently with Dr. Hills; will review further with radiology tomorrow to determine if drainage can be performed of the subphrenic abscess percutaneously or if surgical drainage/washout will be needed due to presence of multiple smaller fluid collections suggestive of early abscesses. Dr. Hills notified patient 's parents of findings. Hemoglobin continues to drift down very slowly, may be slightly hemoconcentrated at present. Type and screen in a.m. Anticipating transfusion in the next 1-2 days.
[2018-02-28] MEDS ORDERED: NS 1,000 ML IV ONE (21:13)
[2018-03-01] MEDS: INSULIN ASPART 100unit/ml INJECTION SQ PRN ×2 (00:45→06:05)
[2018-03-01] MEDS: PIPERACILLIN/TAZOBACTAM 3.375 GM in NS 100 ML IV SCH ×5 (01:15→23:51)
[2018-03-01] MEDS ORDERED: POTASSIUM ACETATE IV SCH (04:00)
[2018-03-01] MEDS ORDERED: [UNRECOGNIZED DRUG - OTHER] IV SCH (04:00)
[2018-03-01] MEDS ORDERED: SODIUM CHLORIDE IV SCH (04:00)
[2018-03-01] MEDS: MORPHINE SULFATE 4mg INJECTION IVP PRN ×3 (04:31→23:46)
--- NOTE | 2018-03-01 07:28 | Pharmacy Consult-TPN/PPN ---
Pharmacy Consult-TPN/PPN - Laboratory Information Chemistry Turbidity < 20 (0-20) 03/01/18 04:15 Sodium 137 MEQ/L (136-146) 03/01/18 04:15 Potassium 4.6 MEQ/L (3.6-5) D 03/01/18 04:15 Chloride 107 MEQ/L (98-107) 03/01/18 04:15 Carbon Dioxide 22 MEQ/L (22-30) 03/01/18 04:15 Anion Gap 8 meq/L (5-15) 03/01/18 04:15 BUN 13.0 MG/DL (9-20) 03/01/18 04:15 Creatinine 0.5 mg/dL (0.8-1.5) L 03/01/18 04:15 GFR Calculation 195 03/01/18 04:15 BUN/Creatinine Ratio 26 RATIO (6-26) 03/01/18 04:15 Glucose 101 MG/DL (75-110) 03/01/18 04:15 Glucometer 164 mg/dL (65-110) 03/01/18 00:42 Calculated Osmolality 264 MOSM/KG (261-280) 03/01/18 04:15 Calcium 7.6 MG/DL (8.4-10.2) L 03/01/18 04:15 Ionized Calcium [place] 1.11 MMOL/L (1.12-1.32) L 02/25/18 04:20 Phosphorus 3.2 MG/DL (2.5-4.5) 03/01/18 04:15 Magnesium 2.2 MG/DL (1.6-2.3) 03/01/18 04:15 Iron 11 ug/dL (49-181) L 02/20/18 20:07 TIBC 342 ug/dL (261-497) 02/20/18 20:07 % Saturation 3 % (13-59) L 02/20/18 20:07 Ferritin 2.44 ng/mL (17-464) L 02/20/18 20:07 Total Bilirubin 0.70 MG/DL (0.20-1.30) 02/21/18 04:11 Icterus Index < 2 (0-7) 03/01/18 04:15 AST 17 U/L (17-59) 02/21/18 04:11 ALT 8 U/L (1-50) 02/21/18 04:11 Alkaline Phosphatase 72 U/L (38-126) 02/21/18 04:11 Total Protein 6.9 g/dL (6.3-8.2) 02/21/18 04:11 Albumin 2.5 g/dL (3.5-5.0) L 03/01/18 04:15 Globulin 2.7 G/DL (2.4-3.6) 02/21/18 04:11 Albumin/Globulin Ratio 1.6 RATIO (1.1-2.2) 02/21/18 04:11 Lipase 21 U/L (23-300) L 02/20/18 15:25 Plasma Lactate 1.3 MMOL/L (0.6-2.2) 02/24/18 04:13 Vitamin B12 367 pg/mL (239-931) 02/20/18 20:07 Procalcitonin < 0.05 NG/ML 02/21/18 04:11 Specimen Hemolysis < 15 (0-25) 03/01/18 04:15 Intake and Output 02/28/18 03/01/18 03/02/18 06:59 06:59 06:59 Intake Total 3015.0034 / 3015.0034 3555.9694 / 3555.9694 Output Total 6506 / 6506 4658 / 4658 Balance -3490.9966 / -3490.9966 -1102.0306 / -1102.0306 -18 Weight 70.4 kg 65.8 kg Intake: IV 2905.0034 / 2905.0034 3515.9694 / 3515.9694 Fat Emulsion 20% 100 ml @ 50 100 / 100 100.000 / 100.000 mls/hr IV 1600 [facility] Rx#: [id number] Fluconazole Pb 100 mg In 50 ml 50 / 50 50 / 50 @ 50 mls/hr IV DAILY [facility] Rx#: [id number] Ns 1,000 ml @ 999.9 mls/hr IV . 1000 / 1000 Q1H ONE Rx#:[id number] Piperacillin/Tazobactam 3.375 400 / 400 300 / 300 gm In Ns 100 ml @ 200 mls/hr IV Q6H [facility] Rx#:[id number] Sodium Chloride Conc 80 meq 2355.0034 / 2355.0034 2065.9694 / Potassium Acetate Inj 60 meq POTASSIUM PHOSPHATE (mEq) 60 meq Magnesium Sulfate Inj 12 meq Calcium Gluconate 9.3 meq Multi-Vit Infusion 10 ml Multi -Trace Elements 1 ml In TPN - Custom Formula 2,000 ml @ 100 mls/hr IV .[id number] [facility] Rx#: [id number] Intake, Gastric Tube Irrigant 110 / 110 40 / 40 Amount Left Nare 110 / 110 40 / 40 Output: Stool 2975 / 2975 1050 / 1050 Urine Amount (Catheter) 1223 / 1223 1726 / 1726 18 / 18 Gastric Drainage 2049 1700 / 1700 Left Nare 2049 1700 / 1700 Wound Drainage 258 / 258 182 / 182 Left Anterior Medial Abdomen 0 / 0 2 / 2 Right Anterior Medial Abdomen 258 / 258 180 / 180 Other: Urine Appearance Clear Clear Clear Urine Color Yellow Yellow Yellow Stool Color Brown Brown Green Yellow Stool Consistency Liquid Watery Drain Type Left Anterior Medial Abdomen Bulb [place] Bulb [place] Right Anterior Medial Abdomen Bulb [place] Bulb [place] # Unmeasured Emesis Episodes 1 - Consult Information Julio wnl. Potassium trending up. Reduced potassium content in next TPN bag by 30meq. Will continue to monitor. Thank you.
[2018-03-01] MEDS ORDERED: NS 1,000 ML IV ONE (09:12)
[2018-03-01] MEDS: ALBUTEROL/IPRATROPIUM 2.5mg-0.5mg/3ml NEB IPPB SCH ×3 (09:15→22:05)
[2018-03-01] MEDS: FLUCONAZOLE PB 100 MG/50 ML BAG IV SCH (09:21)
[2018-03-01] MEDS: PANTOPRAZOLE 40 MG INJECTION IVP SCH (09:21)
[2018-03-01] MEDS: ENOXAPARIN 40 MG/0.4 ML INJECTION SQ SCH (09:22)
--- NOTE | 2018-03-01 10:02 | CT Scan Report ---
EXAM: CT abdomen pelvis w con DATE: 02/28/2018 4:33 PM ENCOUNTER: Subsequent INDICATION: fever, recent colonic perf/colectomy COMPARISON: 02/20/2018 TECHNIQUE: CT of the abdomen and pelvis with IV contrast. The patient received 89.2 mL of Omnipaque 300 without complication. Coronal and sagittal reformatted images were performed. The current CT scan was performed using radiation dose-reduction techniques. FINDINGS: Lower Chest: Partially visualized moderate left pleural effusion with associated left lower lobe relaxation atelectasis. The heart is normal in size without pericardial effusion. Abdomen: Scattered areas of intraperitoneal free air, most prominent within the right greater than left paracolic gutters. Mild free fluid within the right paracolic gutter. Rim-enhancing gas and fluid collection within the left upper quadrant posterosuperior to the spleen measuring approximately 5 x 6 x 8 cm. No lymphadenopathy. Bilateral upper quadrant surgical drains in place. Liver: The liver enhances homogeneously without focal masses. Gallbladder and biliary: The gallbladder is contracted and poorly evaluated. No biliary ductal dilatation. Spleen: The spleen appears normal. Pancreas: The pancreas demonstrates homogeneous attenuation. Adrenal glands: The adrenal glands are normal in size and attenuation. Kidneys/ureters: The kidneys appear normal. The ureters are normal in course and caliber. GI tract: Enteric tube in place with tip in the distal stomach. The stomach appears otherwise grossly normal. Postoperative changes of subtotal colectomy with right lower quadrant ostomy. Remaining predominantly small bowel loops are somewhat prominent and fluid-filled suggesting postoperative adynamic ileus without evidence of obstruction. Prominent stool within the rectal pouch. Vascular structures: The aorta is normal in course and caliber. The mesenteric arterial and venous structures appear patent. Pelvis: No pelvic free fluid. No pelvic lymphadenopathy. Bladder: The bladder wall appears circumferentially thickened. Mcdermott catheter in place. Air within the bladder likely related to Mcdermott catheter placement. Genital system: The prostate and seminal vesicles appear grossly normal. Skeletal structures and soft tissues: Midline surgical skin stephani in place. No other acute osseous or soft tissue abnormality identified. IMPRESSION: 1. Left upper quadrant subdiaphragmatic gas and fluid collection suggestive of abscess. A left upper quadrant drain is in place however this appears to course anterior to the collection without definite communication. Consideration for percutaneous drainage of this collection would be complicated by likely transgression of the left costophrenic sulcus and pleural spaces. 2. Additional mild free air and gas within the right greater than left paracolic gutters without discrete rim-enhancing fluid collection/abscess. 3. Thickening of the wall of the bladder which could represent cystitis. 4. Postoperative changes of subtotal colectomy with prominent stool remaining in the rectal pouch and right lower quadrant ostomy in place. Mildly prominent remaining bowel loops filled with fluid suggestive of postoperative adynamic ileus. 5. Partially visualized moderate left pleural effusion with associated partial relaxation atelectasis of the left lower lobe. The above report concurs with the preliminary report provided by virtual radiologic at 6:31 PM. .
[2018-03-01] MEDS: [UNRECOGNIZED DRUG - OTHER] IV SCH (11:02)
[2018-03-01] MEDS: POTASSIUM ACETATE IV SCH (11:02)
[2018-03-01] MEDS: SODIUM CHLORIDE IV SCH (11:02)
[2018-03-01] MEDS: ACETAMINOPHEN 650 MG SUPPOSITORY PR PRN (15:29)
--- NOTE | 2018-03-01 15:45 | Wound Care Progress Note ---
Wound Center Progress Note: Pt seen for ostomy follow up. Pt lying in bed watching TV. Parents are not in the room at this time. Spoke to pt's nurse; pt will be going to OR for surgery this evening for possible abscess formation/ileus. Additional educational materials left at bedside.
[2018-03-01] MEDS: FAT EMULSION 20% 100 ML IV SCH (16:16)
--- NOTE | 2018-03-01 16:28 | Progress Note ---
- Date 03/01/18 Subjective: Arslan was seen with his mother at the bedside this morning. Nursing reports he seems more uncomfortable today and they have not attempt to walk him as a result. Patient responds "yes" to all questions asked including whether he short of breath, has pleuritic pain, abdominal pain, and lightheadedness. He continues to have high output through the ostomy and the NG. Urine output is good. There is persistent sinus tachycardia. Maximum temperature overnight was 100.3 but early this afternoon temperature was 101.4. Results of CT scan were briefly discussed with his mother. Objective Vital signs: Temperature 101.4 F H 03/01/18 15:15 Pulse Rate 136 H 03/01/18 16:00 Respiratory Rate 27 H 03/01/18 15:30 Blood Pressure 113/61 03/01/18 15:00 Pulse Oximetry 99-RA 03/01/18 15:30 I/O 3556/4658 (NG-1700, ostomy-1050, drain LUQ-2 mL, drain RUQ-180 mL) NAD, alert, minimal speech EOMI, conjunctiva clear, sclera anicteric, oropharynx clear although only anterior pharynx can be visualized Neck supple Respirations nonlabored, good airflow, breath sounds clear anteriorly Regular rhythm, S1-S2, tachycardic Abdomen soft, mildly tender to palpation throughout the abdomen, no guarding, sparse bowel sounds present Trace edema bilateral lower extremities, skin without rash Moving upper extremities spontaneously/symmetrically Rhythm: Sinus Tachycardia Height/Weight/BMI: Height 1.75 m Weight 64.5 kg Body Mass Index 22.5 Results - Labs CBC & Chem 7: 03/01/18 04:15 03/01/18 04:15 Labs: S68 B4 L14 M13 E1 Calcium, phosphorus, magnesium, albumin all stable Microbiology Results: Microbiology 02/20/18 20:07 Peripheral/Iv Start Blood Culture - Final No Growth After 5 Days - Imaging and Cardiology CT scan - abdomen Status: image reviewed by me (study reviewed with radiology-dominant abscess posterior to left upper quadrant drain above spleen, would require going through pleura to drain percutaneously.) Assessment and Plan (1) Megacolon Problem details: Toxic megacolon Current visit: Yes Status: Acute (2) Perforation of colon Problem details: Perforation of the splenic flexure due to ischemic changes Current visit: Yes Status: Acute Assessment and Plan: Assessment 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 Feculent peritonitis Subdiaphragmatic abscess, left upper quadrant Tachycardia Severe constipation Severe sepsis Fever Severe iron deficiency anemia. Autism Dental problems Hypophosphatemia Hypokalemia XIOMARA LLL atalectasis Acute kidney injury with oliguria-postop Plan: Subdiaphragmatic abscess and left upper quadrant-discussed with radiology and message subsequently relayed to Dr. Hills regarding potential risk of percutaneous drainage. Patient tenably scheduled to return to the operating room later today. Several very small extensive gas in the pelvis without clear room enhancement to suggest abscess, may simply be postoperative change. Remains on TPN, electrolytes stable. Good urine output per ostomy but continues to have high volume output per NG. Output significantly higher than input, weight down, ongoing tachycardia--> 1 L fluid bolus this a.m. and continue normal saline at 100 mL per hour. Anticipate ongoing need for fluids to match fluid losses. 2 units PRBCs matched preoperatively; one being given prior to surgery for hemoglobin 7.4. Ferrlicit dose given 02/25, plan to repeat dose 03/04. S/P 1 unit PRBCs 02/21, . Discussed with nursing who provide supplemental history; mother updated. Prognosis guarded. - Physician Narrative Narrative: Date: 03/01/18 Time: 1623 Hospital Course Summary Disclaimer: The visit summary below is not to be considered part of the above Progress Note. Hospital Course: 02/20/18 Admit, CCU. Bowel rest - NPO. Cont IVF - 1/2 NS with Na of 144. Consult Dr. Gomez for mgt. Sx management with protonix, morphine, zofran. Cont IVF for tachycardia; sepsis. Repeat lactate. Cont Zosyn for bowel coverage. Follow BC results. Iron w/u in progress. Type & screen ordered. D/W with Dr. Stevens and RN. 02/22. Gastrograffin enema 02/21 with copious stool resulting. However, still with stool in rectal vault. Deferring further management to surgery team, await recs. Cont zosyn given bandemia, tachycardia and concern for toxic megacolon. 02/23 Clinically deteriorating. Going for surgery for perforation/free air. Near total colectomy performed. Became hypotensive, tachycardic with rates into 180s. Aggressively fluid resuscitated. 02/24 UOP, tachycardia improved. Cont abx. Initiate TPN. Monitoring for return of bowel fxn. 02/25 Given Kphos Transfused another 1U PRBCs. Stopped LR. Surgery to trial clamping NGT. Intermittently febrile- rectal tylenol. 02/27/18 Remains on TPN, tolerating limited oral liquids earlier today however resultant emesis has required resumption of NG suction. Good output per ostomy; 2400 mL output reported during prior 24-hour period. Hemoglobin drifting down, ongoing hypokalemia-post being reassessed this afternoon. Potassium increased and TPN but may require supplemental boluses due to potassium lost in stool and emesis. Persistent tachycardia-may require additional blood transfusion. Remains on Zosyn for peritonitis; chest x-ray with pleural effusion but no evidence of pneumonia. May require repeat CT abdomen/pelvis to exclude intra-abdominal abscess. 02/28/18 Remains on TPN, electrolytes stable. Good urine output per ostomy but continues to have high volume output per NG. Output significantly higher than input, weight down, ongoing tachycardia--> 1 L fluid bolus tonight. Anticipate ongoing need for fluids to match fluid losses. CT abdomen/pelvis discussed with radiology this evening and subsequently with Dr. Hills; will review further with radiology tomorrow to determine if drainage can be performed of the subphrenic abscess percutaneously or if surgical drainage/washout will be needed due to presence of multiple smaller fluid collections suggestive of early abscesses. Dr. Hills notified patient 's parents of findings. Hemoglobin continues to drift down very slowly, may be slightly hemoconcentrated at present. Type and screen in a.m. Anticipating transfusion in the next 1-2 days. 03/01/18 Subdiaphragmatic abscess and left upper quadrant-discussed with radiology and message subsequently relayed to Dr. Hills regarding potential risk of percutaneous drainage. Patient tenably scheduled to return to the operating room later today. Several very small extensive gas in the pelvis without clear room enhancement to suggest abscess, may simply be postoperative change. Remains on TPN, electrolytes stable. Good urine output per ostomy but continues to have high volume output per NG. Output significantly higher than input, weight down, ongoing tachycardia--> 1 L fluid bolus this a.m. and continue normal saline at 100 mL per hour. 2 units PRBCs matched preoperatively; one being given prior to surgery for hemoglobin 7.4.
[2018-03-01] MEDS: ALBUTEROL/IPRATROPIUM 2.5mg-0.5mg/3ml NEB IPPB PRN (16:41)
[2018-03-01] MEDS ORDERED: NS 1,000 ML IV SCH (16:45)
[2018-03-01] MEDS: NS 1,000 ML IV SCH ×2 (17:56→20:30)
[2018-03-01] MEDS ORDERED: ROCURONIUM 50 MG/5 ML INJECTION IVP ONE ×2 (17:58→20:17)
[2018-03-01] MEDS ORDERED: PROPOFOL 20 ML ONE (17:58)
[2018-03-01] MEDS ORDERED: SUCCINYLCHOLINE 20mg/mL 10mL INJECTION ONE (17:58)
[2018-03-01] MEDS ORDERED: FentaNYL 250 MCG/5 ML INJECTION ONE ×2 (18:01→19:18)
[2018-03-01] MEDS ORDERED: METOCLOPRAMIDE 10mg/2ml INJECTION IVP PRN (19:11)
[2018-03-01] MEDS ORDERED: ONDANSETRON 4 MG/2 ML INJECTION IVP PRN (19:11)
[2018-03-01] MEDS ORDERED: DEXAMETHASONE 4 MG/ML INJECTION ONE (19:17)
[2018-03-01] MEDS ORDERED: ONDANSETRON 4 MG/2 ML INJECTION ONE (19:17)
[2018-03-01] MEDS ORDERED: PHENYLEPHRINE INJ 10 MG/ML VIAL IV ONE (19:41)
[2018-03-01] MEDS ORDERED: SALINE FLUSH 10ml SYRINGE ONE (19:41)
[2018-03-01] MEDS ORDERED: SUGAMMADEX 200mg/2ml INJECTION IVP ONE (20:44)
[2018-03-01] MEDS: HYDROMORPHONE 2 MG/ML INJECTION IVP PRN ×2 (21:08→21:28)
--- NOTE | 2018-03-01 21:14 | General Surgery Procedure Note ---
Date of Procedure: 03/01/18 Surgeon: Reinier Anesthesia: General Inhalation Gases ASA Score: 3 Postoperative Diagnosis: Multiple intraabdominal abscesses, fecal impaction Procedure: 1. Exploratory laparotomy 2. Drainage of multiple intraabdominal abscesses 3. Fecal disimpaction 4. Intraoperative flexible proctoscopy
[2018-03-01] MEDS: LR 1,000 ML IV SCH (21:48)
[2018-03-02] MEDS ORDERED: [UNRECOGNIZED DRUG - OTHER] IV SCH (00:50)
[2018-03-02] MEDS ORDERED: SODIUM CHLORIDE IV SCH (00:50)
[2018-03-02] MEDS ORDERED: POTASSIUM ACETATE IV SCH (00:50)
[2018-03-02] MEDS: ALBUTEROL/IPRATROPIUM 2.5mg-0.5mg/3ml NEB IPPB PRN (01:00)
[2018-03-02] MEDS: MORPHINE SULFATE 4mg INJECTION IVP PRN ×8 (01:05→19:12)
[2018-03-02] MEDS: PIPERACILLIN/TAZOBACTAM 3.375 GM in NS 100 ML IV SCH ×4 (05:18→23:10)
[2018-03-02] MEDS: INSULIN ASPART 100unit/ml INJECTION SQ PRN ×4 (06:13→23:31)
[2018-03-02] MEDS: ALBUTEROL/IPRATROPIUM 2.5mg-0.5mg/3ml NEB IPPB SCH ×3 (08:07→22:09)
[2018-03-02] MEDS: FLUCONAZOLE PB 100 MG/50 ML BAG IV SCH (08:23)
[2018-03-02] MEDS: ENOXAPARIN 40 MG/0.4 ML INJECTION SQ SCH (08:23)
[2018-03-02] MEDS: PANTOPRAZOLE 40 MG INJECTION IVP SCH (08:24)
--- NOTE | 2018-03-02 09:11 | Wound Care Progress Note ---
Wound Center Progress Note: Pt seen for ostomy/wound care follow up. Pt resting in bed, FLACC-5. Pt's mother at bedside. Last night pt was taken to OR by Dr. Hills for exploratory laparotomy, drainage of multiple intraabdominal abscesses, and other procedures. Dr. Hills requested a wound vac be placed in the mid abdominal/chest incision. Pt pre-medicated before wound care. Pt has a RLQ colostomy. Stoma: large, edematous, moist, beefy red, sutures in place. Peristomal skin: WDNL. Pouch has small amount yellowish green liquid drainage. Wafer and pouch changed; mother watched, education given while changing pouching system. Discussed how pt can help with changing ostomy pouch. Pt has long surgical incision from lower abdomen to mid chest; measuring 35 (L) x 2.7 ( W) x 2 (D). Gauze dressing removed with small serosanguineous drainage, no active drainage. Wound bed has red non-granulating tissue. Periwound: WDNL. Skin prepped around incision, black foam placed into wound bed, drape applied. Black foam collapsed without leaks, vac running at 125 mm Hg continuos pressure. Wound vac dressing to be changed M/R. Pt tolerated procedure well. Will continue education with parents concerning colostomy and pouching system changes.
--- NOTE | 2018-03-02 09:14 | Wound Care Progress Note ---
Wound Management - Patient Status Premedicated Prior to Dressing Change: Yes - Wound Abdomen Wound Type: Surgical Incision Wound Present on Admission?: No Length: 35 Width: 2.7 Depth: 2 Pinky Wound Appearance: Edematous Drainage Description: Sanguineous Drainage Amount: Scant Drainage Odor: No Odor Dressing Status: Changed Dressing Change Date: 03/02/18 Dressing Change Time: 08:10 Dressing Change Patient Tolerance: Tolerated Well (NPWT, 125 mm Hg continous pressure, change M/R) Microbiology: Microbiology 03/01/18 18:56 Abdomen, Left Upper Gram Stain - Final 03/01/18 18:56 Abdomen, Left Upper Surgical Culture - Preliminary Early growth
--- NOTE | 2018-03-02 09:14 | Progress Note ---
- Date 03/02/18 Subjective: Patient just had wound VAC placed. c/o abdominal pain and nausea. Appears uncomfortable. Went to OR last night. Now has [address] Tmax 101.4 in past 24 hours was yesterday afternoon before surgery. NGT had 270 out overnight. Patient c/o soa and nonproductive cough. Objective Vital signs: Temperature 99.4 F 03/02/18 00:00 Pulse Rate 139 H 03/02/18 06:00 Respiratory Rate 34 H 03/02/18 08:07 Blood Pressure 112/71 03/02/18 06:00 Pulse Oximetry 95 03/02/18 06:00 Rhythm: Sinus Tachycardia Height/Weight/BMI: Height 5 ft 9 in Weight 64.5 kg Body Mass Index 22.5 - Constitutional Present: mild distress - Routine HEENT Exam Head: Present: normocephalic, atraumatic Eye: Present: EOMI, PERRL ENT: Present: mucous membranes dry - Routine Respiratory Exam Present: CTA bilaterally - Routine Cardiovascular Exam Present: tachycardia - Routine Abdominal Exam Present: tenderness, ostomy Comments: VAC in place, [address] - Routine Extremities Exam Present: no edema - Routine Neurological Exam Present: alert - Routine Psychiatric Exam Present: cooperative Results - Labs CBC & Chem 7: 03/02/18 04:23 03/02/18 04:23 Microbiology Results: Microbiology 03/01/18 18:56 Abdomen, Left Upper Gram Stain - Final 03/01/18 18:56 Abdomen, Left Upper Surgical Culture - Preliminary Early growth 02/20/18 20:07 Peripheral/Iv Start Blood Culture - Final No Growth After 5 Days Assessment and Plan (1) Megacolon Problem details: Toxic megacolon Current visit: Yes Status: Acute (2) Perforation of colon Problem details: Perforation of the splenic flexure due to ischemic changes Current visit: Yes Status: Acute Assessment and Plan: Assessment 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 Feculent peritonitis Subdiaphragmatic abscess, left upper quadrant Tachycardia Severe constipation Severe sepsis Fever Severe iron deficiency anemia. Autism Dental problems Hypophosphatemia Hypokalemia XIOMARA LLL atalectasis Acute kidney injury with oliguria-postop Hyperkalemia Plan: s/p ex lap with placement of drains by Dr. Hills. Febrile before surgery. WBC up post-op. Wound cx growing GPC, GNR, GPR. Continue zosyn Remains on TPN, reduce K+. Good urine output. Output per NG down. Continued tachycardia. Continue IVF and treat pain. Output significantly higher than input, weight down, ongoing tachycardia--> 1 L fluid bolus this a.m. and continue normal saline at 100 mL per hour. Anticipate ongoing need for fluids to match fluid losses. 1 unit PRBCs given 03/01. Total of 4 units transfused Ferrlicit dose given 02/25, plan to repeat dose 03/04. Discussed with nursing who provide supplemental history; mother updated. Prognosis guarded. - Physician Narrative Narrative: Date: 03/02/18 Time: 904 Hospital Course Summary Disclaimer: The visit summary below is not to be considered part of the above Progress Note. Hospital Course: 02/20/18 Admit, CCU. Bowel rest - NPO. Cont IVF - 1/ NS with Na of 144. Consult Dr. Gomez for mgt. Sx management with protonix, morphine, zofran. Cont IVF for tachycardia; sepsis. Repeat lactate. Cont Zosyn for bowel coverage. Follow BC results. Iron w/u in progress. Type & screen ordered. D/W with Dr. Stevens and RN. 02/22. Gastrograffin enema 02/21 with copious stool resulting. However, still with stool in rectal vault. Deferring further management to surgery team, await recs. Cont zosyn given bandemia, tachycardia and concern for toxic megacolon. 02/23 Clinically deteriorating. Going for surgery for perforation/free air. Near total colectomy performed. Became hypotensive, tachycardic with rates into 180s. Aggressively fluid resuscitated. 02/24 UOP, tachycardia improved. Cont abx. Initiate TPN. Monitoring for return of bowel fxn. 02/25 Given Kphos Transfused another 1U PRBCs. Stopped LR. Surgery to trial clamping NGT. Intermittently febrile- rectal tylenol. 02/27/18 Remains on TPN, tolerating limited oral liquids earlier today however resultant emesis has required resumption of NG suction. Good output per ostomy; 2400 mL output reported during prior 24-hour period. Hemoglobin drifting down, ongoing hypokalemia-post being reassessed this afternoon. Potassium increased and TPN but may require supplemental boluses due to potassium lost in stool and emesis. Persistent tachycardia-may require additional blood transfusion. Remains on Zosyn for peritonitis; chest x-ray with pleural effusion but no evidence of pneumonia. May require repeat CT abdomen/pelvis to exclude intra-abdominal abscess. 02/28/18 Remains on TPN, electrolytes stable. Good urine output per ostomy but continues to have high volume output per NG. Output significantly higher than input, weight down, ongoing tachycardia--> 1 L fluid bolus tonight. Anticipate ongoing need for fluids to match fluid losses. CT abdomen/pelvis discussed with radiology this evening and subsequently with Dr. Hills; will review further with radiology tomorrow to determine if drainage can be performed of the subphrenic abscess percutaneously or if surgical drainage/washout will be needed due to presence of multiple smaller fluid collections suggestive of early abscesses. Dr. Hills notified patient 's parents of findings. Hemoglobin continues to drift down very slowly, may be slightly hemoconcentrated at present. Type and screen in a.m. Anticipating transfusion in the next 1-2 days. 03/01/18 Subdiaphragmatic abscess and left upper quadrant-discussed with radiology and message subsequently relayed to Dr. Hills regarding potential risk of percutaneous drainage. Patient tenably scheduled to return to the operating room later today. Several very small extensive gas in the pelvis without clear room enhancement to suggest abscess, may simply be postoperative change. Remains on TPN, electrolytes stable. Good urine output per ostomy but continues to have high volume output per NG. Output significantly higher than input, weight down, ongoing tachycardia--> 1 L fluid bolus this a.m. and continue normal saline at 100 mL per hour. 2 units PRBCs matched preoperatively; one being given prior to surgery for hemoglobin 7.4. 03/02 s/p ex lap with placement of drains by Dr. Hills. Febrile before surgery. WBC up post-op. Wound cx growing GPC, GNR, GPR. Continue zosyn Remains on TPN, reduce K+. Good urine output. Output per NG down. Continued tachycardia. Continue IVF and treat pain. Output significantly higher than input, weight down, ongoing tachycardia--> 1 L fluid bolus this a.m. and continue normal saline at 100 mL per hour. Anticipate ongoing need for fluids to match fluid losses. 1 unit PRBCs given 03/01. Total of 4 units transfused Ferrlicit dose given 02/25, plan to repeat dose 03/04. Discussed with nursing who provide supplemental history; mother updated. Prognosis guarded.
--- NOTE | 2018-03-02 11:39 | Pharmacy Consult-TPN/PPN ---
Pharmacy Consult-TPN/PPN - Laboratory Information Chemistry Turbidity < 20 (0-20) 03/02/18 04:23 Sodium 135 MEQ/L (136-146) L 03/02/18 04:23 Potassium 5.4 MEQ/L (3.6-5) H 03/02/18 04:23 Chloride 107 MEQ/L (98-107) 03/02/18 04:23 Carbon Dioxide 21 MEQ/L (22-30) L 03/02/18 04:23 Anion Gap 7 meq/L (5-15) 03/02/18 04:23 BUN 16.0 MG/DL (9-20) 03/02/18 04:23 Creatinine 0.6 mg/dL (0.8-1.5) L 03/02/18 04:23 GFR Calculation 158 03/02/18 04:23 BUN/Creatinine Ratio 27 RATIO (6-26) H 03/02/18 04:23 Glucose 214 MG/DL (75-110) H 03/02/18 04:23 Glucometer 267 mg/dL (65-110) 03/02/18 06:11 Calculated Osmolality 267 MOSM/KG (261-280) 03/02/18 04:23 Calcium 7.3 MG/DL (8.4-10.2) L 03/02/18 04:23 Ionized Calcium [place] 1.11 MMOL/L (1.12-1.32) L 02/25/18 04:20 Phosphorus 2.9 MG/DL (2.5-4.5) 03/02/18 04:23 Magnesium 2.2 MG/DL (1.6-2.3) 03/01/18 04:15 Iron 11 ug/dL (49-181) L 02/20/18 20:07 TIBC 342 ug/dL (261-497) 02/20/18 20:07 % Saturation 3 % (13-59) L 02/20/18 20:07 Ferritin 2.44 ng/mL (17-464) L 02/20/18 20:07 Total Bilirubin 0.70 MG/DL (0.20-1.30) 02/21/18 04:11 Icterus Index < 2 (0-7) 03/02/18 04:23 AST 17 U/L (17-59) 02/21/18 04:11 ALT 8 U/L (1-50) 02/21/18 04:11 Alkaline Phosphatase 72 U/L (38-126) 02/21/18 04:11 Total Protein 6.9 g/dL (6.3-8.2) 02/21/18 04:11 Albumin 2.3 g/dL (3.5-5.0) L 03/02/18 04:23 Globulin 2.7 G/DL (2.4-3.6) 02/21/18 04:11 Albumin/Globulin Ratio 1.6 RATIO (1.1-2.2) 02/21/18 04:11 Lipase 21 U/L (23-300) L 02/20/18 15:25 Plasma Lactate 1.3 MMOL/L (0.6-2.2) 02/24/18 04:13 Vitamin B12 367 pg/mL (239-931) 02/20/18 20:07 Procalcitonin < 0.05 NG/ML 02/21/18 04:11 Specimen Hemolysis < 15 (0-25) 03/02/18 04:23 Intake and Output 03/01/18 03/02/18 03/03/18 06:59 06:59 06:59 Intake Total 3555.9694 / 3555.9694 5752.6350 / 5752.6350 620.000 / 620.000 Output Total 4658 / 4658 3546 / 3546 465 / 465 Balance -1102.0306 / -1102.0306 2206.6350 / 2206.6350 155.000 / 155.000 Weight 65.8 kg 64.5 kg 64 kg Intake: IV 3515.9694 / 3515.9694 5422.6350 / 5422.6350 600.000 / 600.000 Fat Emulsion 20% 100 ml @ 50 100.000 / 100.000 86.667 / 86.667 mls/hr IV 1600 [facility] Rx#: [id number] Fluconazole Pb 100 mg In 50 ml 50 / 50 50 / 50 50 / 50 @ 50 mls/hr IV DAILY [facility] Rx#: [id number] Lr 1,000 ml @ 50 mls/hr IV . 385.000 / 385.000 150.000 / 150.000 Q20H [facility] Rx#:[id number] Ns 1,000 ml @ 50 mls/hr IV . 1000 / 1000 2300 / 2300 Q20H [facility] Rx#:[id number] Piperacillin/Tazobactam 3.375 300 / 300 500 / 500 gm In Ns 100 ml @ 200 mls/hr IV Q6H [facility] Rx#:[id number] Sodium Chloride Conc 80 meq 1926.6646 / 1926.6646 400 / 400 Potassium Acetate Inj 30 meq POTASSIUM PHOSPHATE (mEq) 60 meq Magnesium Sulfate Inj 12 meq Calcium Chloride 9.3 meq Multi-Vit Infusion 10 ml Multi -Trace Elements 1 ml In TPN - Custom Formula 2,000 ml @ 100 mls/hr IV .[id number] [facility] Rx#: [id number] Sodium Chloride Conc 80 meq 2065.9694 / 2065.9694 174.3034 / 174.3034 Potassium Acetate Inj 60 meq POTASSIUM PHOSPHATE (mEq) 60 meq Magnesium Sulfate Inj 12 meq Calcium Gluconate 9.3 meq Multi-Vit Infusion 10 ml Multi -Trace Elements 1 ml In TPN - Custom Formula 2,000 ml @ 100 mls/hr IV .[id number] [facility] Rx#: [id number] Intake, Gastric Tube Irrigant 40 / 40 20 / 20 Amount Left Nare 40 / 40 20 / 20 Intake (Blood Product) Amt 330 / 330 Output: Stool 1050 / 1050 475 / 475 Urine Amount (Catheter) 1726 / 1726 2341 / 2341 465 / 465 Gastric Drainage 1700 / 1700 270 / 270 Left Nare 1700 / 1700 270 / 270 Wound Drainage 182 / 182 460 / 460 Left Anterior Medial Abdomen 2 / 2 75 / 75 Left Lower Lateral Abdomen 110 / 110 Right Anterior Medial Abdomen 180 / 180 105 / 105 Right Lower Abdomen 95 / 95 Right Lower Lateral Abdomen 75 / 75 Other: Urine Appearance Clear Clear Clear Urine Color Yellow Light Meliza Light Meliza Stool Color Brown Brown Yellow Stool Consistency Watery Watery Drain Type Left Anterior Medial Abdomen Bulb [place] Bulb [place] Left Lower Lateral Abdomen Bulb [place] Right Anterior Medial Abdomen Bulb [place] Bulb [place] Right Lower Abdomen Bulb [place] Right Lower Lateral Abdomen Bulb [place] - Consult Information TPN CONSULT: Day 7 5'9" 64 kg male patient admitted with toxic megacolon-ischemic colitis. Patient had a near total colectomy and is currently on TPN. The current TPN is AA 4.25%/Dextrose 25% 2 liter bag. Rate is 100 ml/hr. Patient is also receiving 20% Fat Emulsion 250 ML. The patient is receiving 2040 KCAL from the Dextrose and 500 KCAL from the Lipids = 2540 total non- protein KCAL. Electrolytes have been adjusted. The TPN is a 2 liter bag and at 100 ml/hr the pt is getting 2.4 liters/24 hrs. Pharmacy will continue to monitor the electrolytes and adjust as needed. Thank you. Vidya Munoz, PharmD
[2018-03-02] MEDS: FAT EMULSION 20% 250 ML IV SCH (15:15)
[2018-03-02] MEDS: SALINE FLUSH 10ml SYRINGE IVF PRN (16:01)
[2018-03-02] MEDS: LR 1,000 ML IV SCH (20:04)
[2018-03-02] MEDS: AMINO ACIDS IV SCH (23:10)
[2018-03-02] MEDS: DEXTROSE 25% IV SCH (23:10)
[2018-03-02] MEDS: [UNRECOGNIZED DRUG - OTHER] IV SCH (23:10)
[2018-03-03] MEDS: MORPHINE SULFATE 4mg INJECTION IVP PRN ×7 (02:02→22:08)
[2018-03-03] MEDS: PIPERACILLIN/TAZOBACTAM 3.375 GM in NS 100 ML IV SCH ×4 (05:45→23:23)
[2018-03-03] MEDS: ALBUTEROL/IPRATROPIUM 2.5mg-0.5mg/3ml NEB IPPB SCH ×3 (08:14→19:00)
--- NOTE | 2018-03-03 08:53 | Pharmacy Consult-TPN/PPN ---
Pharmacy Consult-TPN/PPN - Laboratory Information Chemistry Turbidity < 20 (0-20) 03/03/18 04:06 Sodium 137 MEQ/L (136-146) 03/03/18 04:06 Potassium 4.2 MEQ/L (3.6-5) 03/03/18 04:06 Chloride 103 MEQ/L (98-107) 03/03/18 04:06 Carbon Dioxide 25 MEQ/L (22-30) 03/03/18 04:06 Anion Gap 9 meq/L (5-15) 03/03/18 04:06 BUN 13.0 MG/DL (9-20) 03/03/18 04:06 Creatinine 0.5 mg/dL (0.8-1.5) L 03/03/18 04:06 GFR Calculation 195 03/03/18 04:06 BUN/Creatinine Ratio 26 RATIO (6-26) 03/03/18 04:06 Glucose 147 MG/DL (75-110) H 03/03/18 04:06 Glucometer 199 mg/dL (65-110) 03/02/18 23:21 Calculated Osmolality 267 MOSM/KG (261-280) 03/03/18 04:06 Calcium 7.5 MG/DL (8.4-10.2) L 03/03/18 04:06 Ionized Calcium [place] 1.11 MMOL/L (1.12-1.32) L 02/25/18 04:20 Phosphorus 3.0 MG/DL (2.5-4.5) 03/03/18 04:06 Magnesium 2.3 MG/DL (1.6-2.3) 03/03/18 04:06 Iron 11 ug/dL (49-181) L 02/20/18 20:07 TIBC 342 ug/dL (261-497) 02/20/18 20:07 % Saturation 3 % (13-59) L 02/20/18 20:07 Ferritin 2.44 ng/mL (17-464) L 02/20/18 20:07 Total Bilirubin 0.70 MG/DL (0.20-1.30) 02/21/18 04:11 Icterus Index < 2 (0-7) 03/03/18 04:06 AST 17 U/L (17-59) 02/21/18 04:11 ALT 8 U/L (1-50) 02/21/18 04:11 Alkaline Phosphatase 72 U/L (38-126) 02/21/18 04:11 Total Protein 6.9 g/dL (6.3-8.2) 02/21/18 04:11 Albumin 2.4 g/dL (3.5-5.0) L 03/03/18 04:06 Globulin 2.7 G/DL (2.4-3.6) 02/21/18 04:11 Albumin/Globulin Ratio 1.6 RATIO (1.1-2.2) 02/21/18 04:11 Lipase 21 U/L (23-300) L 02/20/18 15:25 Plasma Lactate 1.3 MMOL/L (0.6-2.2) 02/24/18 04:13 Vitamin B12 367 pg/mL (239-931) 02/20/18 20:07 Procalcitonin < 0.05 NG/ML 02/21/18 04:11 Specimen Hemolysis < 15 (0-25) 03/03/18 04:06 Intake and Output 03/02/18 03/03/18 03/04/18 06:59 06:59 06:59 Intake Total 5752.6350 / 5752.6350 4207.500 / 4207.500 137.5 / 137.5 Output Total 3546 / 3546 3040 / 3040 Balance 2206.6350 / 2206.6350 1167.500 / 1167.500 137.5 / 137.5 Weight 64.5 kg 64 kg Intake: IV 5422.6350 / 5422.6350 4167.500 / 4167.500 137.5 / 137.5 Fat Emulsion 20% 100 ml @ 50 86.667 / 86.667 mls/hr IV 1600 [facility] Rx#: [id number] Fat Emulsion 20% 250 ml @ 25 250.00 / 250.00 mls/hr IV 1600 [facility] Rx#: [id number] Fluconazole Pb 100 mg In 50 ml 50 / 50 50 / 50 @ 50 mls/hr IV DAILY [facility] Rx#: [id number] Lr 1,000 ml @ 50 mls/hr IV . 385.000 / 186.451 0304.167 / 1084.167 37.5 / 37.5 Q20H [facility] Rx#:[id number] Ns 1,000 ml @ 50 mls/hr IV . 2300 / 2300 Q20H [facility] Rx#:[id number] Piperacillin/Tazobactam 3.375 500 / 500 400 / 400 gm In Ns 100 ml @ 200 mls/hr IV Q6H [facility] Rx#:[id number] Sodium Acetate 80 meq Potassium 683.333 / 683.333 100 / 100 Acetate Inj 50 meq SODIUM PHOSPHATE (mEq) 30 meq Magnesium Sulfate Inj 12 meq Calcium Chloride 9.3 meq Multi- Vit Infusion 10 ml Multi-Trace Elements 1 ml In TPN - Custom Formula 2,000 ml @ 100 mls/hr IV .[id number] [facility] Rx#:[id number] Sodium Chloride Conc 80 meq 1926.6646 / 1926.6646 1200.000 / 1200.000 Potassium Acetate Inj 30 meq POTASSIUM PHOSPHATE (mEq) 60 meq Magnesium Sulfate Inj 12 meq Calcium Chloride 9.3 meq Multi-Vit Infusion 10 ml Multi -Trace Elements 1 ml In TPN - Custom Formula 2,000 ml @ 100 mls/hr IV .[id number] [facility] Rx#: [id number] Sodium Chloride Conc 80 meq 174.3034 / 174.3034 Potassium Acetate Inj 60 meq POTASSIUM PHOSPHATE (mEq) 60 meq Magnesium Sulfate Inj 12 meq Calcium Gluconate 9.3 meq Multi-Vit Infusion 10 ml Multi -Trace Elements 1 ml In TPN - Custom Formula 2,000 ml @ 100 mls/hr IV .[id number] [facility] Rx#: [id number] Intake, Gastric Tube Irrigant 40 / 40 Amount Left Nare 40 / 40 Intake (Blood Product) Amt 330 / 330 Output: Stool 475 / 475 0 / 0 Urine Amount (Catheter) 2341 / 2341 2096 / 2096 Gastric Drainage 270 / 270 630 / 630 Left Nare 270 / 270 630 / 630 Wound Drainage 460 / 460 313 / 313 Left Anterior Medial Abdomen 75 / 75 60 / 60 Left Lateral Abdomen 35 / 35 Left Lower Abdomen 50 / 50 38 / 38 Left Lower Lateral Abdomen 110 / 110 80 / 80 Right Anterior Medial Abdomen 105 / 105 55 / 55 Right Lower Abdomen 35 / 35 Right Lower Lateral Abdomen 85 / 85 45 / 45 Other: Urine Appearance Clear Clear Urine Color Light Meliza Yellow Stool Color Brown Stool Consistency Watery Drain Type Left Anterior Medial Abdomen Bulb [place] Bulb [place] Left Lateral Abdomen Bulb [place] Left Lower Abdomen Bulb [place] Bulb [place] Left Lower Lateral Abdomen Bulb [place] Bulb [place] Right Anterior Medial Abdomen Bulb [place] Bulb [place] Right Lower Abdomen Bulb [place] Right Lower Lateral Abdomen Bulb [place] Bulb Theodore - Consult Information Today's electrolytes appear to be acceptable so we will continue the same TPN formula. Thanks
[2018-03-03] MEDS: ENOXAPARIN 40 MG/0.4 ML INJECTION SQ SCH (09:16)
[2018-03-03] MEDS: FLUCONAZOLE PB 100 MG/50 ML BAG IV SCH (09:17)
[2018-03-03] MEDS: PANTOPRAZOLE 40 MG INJECTION IVP SCH (09:17)
--- NOTE | 2018-03-03 10:28 | Wound Care Progress Note ---
Wound Center Progress Note: Pt seen for ostomy/wound follow up. Pt resting in bed watching TV, FLACC-0. Mother at bedside. Wound vac canister has scant serosanguineous drainage. Vac dressing collapsed without leaks, running at 125 mm Hg continuous pressure. 2 pc Grupo pouching system intact without leaks. Wafer # [id number]. Pouch # [id number]. Pouch has small amount yellow drainage. Mother has no further questions at this time. Will continue with ostomy education. Scheduled vac dressing change for 03/06/18.
--- NOTE | 2018-03-03 10:55 | Progress Note ---
- Date 03/03/18 Subjective: Patient in bed, watching TV. Appears uncomfortable. Says yes when asked about having pain. Says no when asked whether pain meds help much. Says no to n/v. Mother at bedside. Nurse says patient reluctant to have oral care and won't take ice chips unless his mother gives them. Objective Vital signs: Temperature 99.4 F 03/02/18 19:00 Pulse Rate 127 H 03/03/18 08:27 Respiratory Rate 22 03/03/18 08:27 Blood Pressure 124/74 03/03/18 07:00 Pulse Oximetry 97 03/03/18 08:27 Rhythm: Sinus Tachycardia Height/Weight/BMI: Height 5 ft 9 in Weight 64.4 kg Body Mass Index 22.5 - Constitutional Present: mild distress - Routine HEENT Exam Head: Present: normocephalic, atraumatic Eye: Present: EOMI, PERRL ENT: Present: mucous membranes dry - Routine Respiratory Exam Present: CTA bilaterally - Routine Cardiovascular Exam Present: tachycardia - Routine Abdominal Exam Present: tenderness, drain, ostomy. Absent: rebound, guarding - Routine Extremities Exam Absent: cyanosis, clubbing, edema - Routine Neurological Exam Present: alert, moving all extremities Results - Labs CBC & Chem 7: 03/03/18 04:06 03/03/18 04:06 Microbiology Results: Microbiology 03/01/18 18:56 Abdomen, Left Upper Gram Stain - Final 03/01/18 18:56 Abdomen, Left Upper Surgical Culture - Preliminary Early growth 02/20/18 20:07 Peripheral/Iv Start Blood Culture - Final No Growth After 5 Days Assessment and Plan (1) Megacolon Problem details: Toxic megacolon Current visit: Yes Status: Acute (2) Perforation of colon Problem details: Perforation of the splenic flexure due to ischemic changes Current visit: Yes Status: Acute Assessment and Plan: Assessment 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 Feculent peritonitis Subdiaphragmatic abscess, left upper quadrant Tachycardia Severe constipation Severe sepsis Fever Severe iron deficiency anemia. Autism Dental problems Hypophosphatemia Hypokalemia XIOMARA LLL atalectasis Acute kidney injury with oliguria-postop Hyperkalemia Plan: s/p ex lap 03/01 with placement of drains by Dr. Hills. Afebrile and WBC down. Wound cx growing GPC, GNR, GPR. Continue zosyn and fluconazole Continue TPN, K+ improved. Good urine output. Output per NG and ostomy down since 03/01 ex lap. Continued tachycardia. Continue IVF and treat pain. ? whether anxious. Trial of Ativan Anticipate ongoing need for fluids to match fluid losses. 1 unit PRBCs given 03/01. Total of 4 units transfused Ferrlicit dose given 02/25, plan to repeat dose 03/04. Discussed with nursing who provide supplemental history; mother updated. Prognosis guarded. - Physician Narrative Narrative: Date: 03/03/18 Time: 1052 Hospital Course Summary Disclaimer: The visit summary below is not to be considered part of the above Progress Note. Hospital Course: 02/20/18 Admit, CCU. Bowel rest - NPO. Cont IVF - 1/ NS with Na of 144. Consult Dr. Gomez for mgt. Sx management with protonix, morphine, zofran. Cont IVF for tachycardia; sepsis. Repeat lactate. Cont Zosyn for bowel coverage. Follow BC results. Iron w/u in progress. Type & screen ordered. D/W with Dr. Stevens and RN. 02/22. Gastrograffin enema 02/21 with copious stool resulting. However, still with stool in rectal vault. Deferring further management to surgery team, await recs. Cont zosyn given bandemia, tachycardia and concern for toxic megacolon. 02/23 Clinically deteriorating. Going for surgery for perforation/free air. Near total colectomy performed. Became hypotensive, tachycardic with rates into 180s. Aggressively fluid resuscitated. 02/24 UOP, tachycardia improved. Cont abx. Initiate TPN. Monitoring for return of bowel fxn. 02/25 Given Kphos Transfused another 1U PRBCs. Stopped LR. Surgery to trial clamping NGT. Intermittently febrile- rectal tylenol. 02/27/18 Remains on TPN, tolerating limited oral liquids earlier today however resultant emesis has required resumption of NG suction. Good output per ostomy; 2400 mL output reported during prior 24-hour period. Hemoglobin drifting down, ongoing hypokalemia-post being reassessed this afternoon. Potassium increased and TPN but may require supplemental boluses due to potassium lost in stool and emesis. Persistent tachycardia-may require additional blood transfusion. Remains on Zosyn for peritonitis; chest x-ray with pleural effusion but no evidence of pneumonia. May require repeat CT abdomen/pelvis to exclude intra-abdominal abscess. 02/28/18 Remains on TPN, electrolytes stable. Good urine output per ostomy but continues to have high volume output per NG. Output significantly higher than input, weight down, ongoing tachycardia--> 1 L fluid bolus tonight. Anticipate ongoing need for fluids to match fluid losses. CT abdomen/pelvis discussed with radiology this evening and subsequently with Dr. Hills; will review further with radiology tomorrow to determine if drainage can be performed of the subphrenic abscess percutaneously or if surgical drainage/washout will be needed due to presence of multiple smaller fluid collections suggestive of early abscesses. Dr. Hills notified patient 's parents of findings. Hemoglobin continues to drift down very slowly, may be slightly hemoconcentrated at present. Type and screen in a.m. Anticipating transfusion in the next 1-2 days. 03/01/18 Subdiaphragmatic abscess and left upper quadrant-discussed with radiology and message subsequently relayed to Dr. Hills regarding potential risk of percutaneous drainage. Patient tenably scheduled to return to the operating room later today. Several very small extensive gas in the pelvis without clear room enhancement to suggest abscess, may simply be postoperative change. Remains on TPN, electrolytes stable. Good urine output per ostomy but continues to have high volume output per NG. Output significantly higher than input, weight down, ongoing tachycardia--> 1 L fluid bolus this a.m. and continue normal saline at 100 mL per hour. 2 units PRBCs matched preoperatively; one being given prior to surgery for hemoglobin 7.4. 03/02 s/p ex lap with placement of drains by Dr. Hills. Febrile before surgery. WBC up post-op. Wound cx growing GPC, GNR, GPR. Continue zosyn Remains on TPN, reduce K+. Good urine output. Output per NG down. Continued tachycardia. Continue IVF and treat pain. Output significantly higher than input, weight down, ongoing tachycardia--> 1 L fluid bolus this a.m. and continue normal saline at 100 mL per hour. Anticipate ongoing need for fluids to match fluid losses. 1 unit PRBCs given 03/01. Total of 4 units transfused Ferrlicit dose given 02/25, plan to repeat dose 03/04. Discussed with nursing who provide supplemental history; mother updated. Prognosis guarded. 03/03 s/p ex lap 03/01 with placement of drains by Dr. Hills. Afebrile and WBC down. Wound cx growing GPC, GNR, GPR. Continue zosyn and fluconazole Continue TPN, K+ improved. Good urine output. Output per NG and ostomy down since 03/01 ex lap. Continued tachycardia. Continue IVF and treat pain. ? whether anxious. Trial of Ativan Anticipate ongoing need for fluids to match fluid losses. 1 unit PRBCs given 03/01. Total of 4 units transfused Ferrlicit dose given 02/25, plan to repeat dose 03/04. Discussed with nursing who provide supplemental history; mother updated. Prognosis guarded.
--- NOTE | 2018-03-03 11:36 | Operative Note ---
DATE OF OPERATION 03/01/2018 SURGEON Nuno Hills MD RADIO FREQUENCY ENGINEER Parminder Dill MD PREOPERATIVE DIAGNOSES 1. Subdiaphragmatic intraabdominal abscess. 2. Prior feculent peritonitis due to perforation of the splenic flexure. 3. Fecal impaction of the rectal stump. POSTOPERATIVE DIAGNOSES 1. Multiple areas of intraabdominal abscess formation. 2. Feculent peritonitis from prior perforation at the splenic flexure. 3. Fecal impaction of the rectal stump. 4. Minor mucosal ulceration of the rectum. PROCEDURES 1. Exploratory laparotomy. 2. Drainage of multiple intraabdominal abscesses. 3. Fecal disimpaction 4. Intraoperative flexible proctoscopy. ANESTHESIA General. ASA CLASSIFICATION 3. INDICATIONS The patient is a 32-year-old male who underwent an exploratory laparotomy, transverse colectomy, left hemicolectomy, and creation of end colostomy and Mendoza's pouch on 02/23/[address] 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 He had feculent peritonitis with gross stool all throughout the abdomen. He had drains left in place at that operation. The patient continued be tachycardic and was having a worsening white count. A repeat CT scan of the abdomen and pelvis was performed and showed a large abscess in the subdiaphragmatic region posterior to the spleen that was distant from the intraabdominal drains. There was not a clear window for interventional radiology to perform drain placement since the pathway of the drain would penetrate the lung. Given the significant size of the abscess, it was felt that exploration would be needed. It was also felt that his stool ball in the rectal stump may not pass spontaneously given his fecal diversion with his end colostomy. FINDINGS There was multiple areas of abscess formation within the abdominal cavity with some interloop abscesses as well as purulence at the left paracolic gutter. There was purulence found in the area of the root of the transverse colon mesentery and as indicated by CT the large abscess in the left subdiaphragmatic region. There was a large amount of stool with multiple firm particles of stool in the rectal stump. The stool was softer than expected based on CT appearance. Intraoperative endoscopy was performed to confirm total evacuation of the rectal stump. The flexible proctoscopy did show a small area of ulceration in the posterior distal rectum. DESCRIPTION OF PROCEDURE After informed consent was obtained the patient was taken back to the operating room from the CCU and placed in the supine position. His colostomy bag was excluded from the field with a towel and an Ioban dressing. The patient's prior stephani and Telfa cholo were removed and his abdomen, his drain tubing and the Ioban over his ostomy were prepped with Betadine. The perineum was also prepped once the patient was in lithotomy stirrups. The patient's abdomen was then draped in usual sterile fashion. His prior midline fascial suture was opened with suture scissors. The abdomen was then explored. Multiple areas were discovered with purulent material. A sample was taken and was sent to the lab for culture. The small bowel was run from the ligament of Treitz to the ileocecal valve. Multiple interloop abscesses were noted and these were broken up bluntly. Fortunately, the intraabdominal adhesions were not dense and were able to be divided easily with blunt dissection. The area above the spleen was then dissected off of the diaphragm and the large abscess cavity was encountered. The left upper quadrant was irrigated copiously with 2 liters of saline. It was evacuated of fluid. The other quadrants of the abdomen were irrigated with a liter of saline and the abdomen was evacuated of fluid. A total of 5 liters of irrigation was used in the case. When no additional purulent material was encountered, three additional 19 [place] drains were placed with two in the left abdomen and one in the right abdomen. In the left abdomen the mid drain was extended posteriorly and up behind the spleen and over the superior pole of the spleen beneath the diaphragm. The most inferior drain was coiled posteriorly into the region of the previous left paracolic gutter. The original superior drain was coiled into the previous root of the transverse colon mesentery. The new drain on the right which was more inferior and lateral was positioned up into the right subdiaphragmatic space over to the liver. The previous right drain was coiled around the colostomy and down into the anterior pelvis towards the left lower quadrant. Dr. Dill held pressure on the rectal stump to keep stool from extending proximally. I then performed a manual fecal disimpaction to remove a large amount of stool. A red Robinul catheter had been used to irrigate out the rectal stump to try to help soften the stool and allow for total fecal disimpaction. Additional stool was palpated. More of the stool was evacuated and flexible proctoscopy was performed with a colonoscope. Copious irrigation was utilized via the colonoscope to try to wash the resendiz of the rectal stump and rinse all of the stool down into the distal rectum. The remainder of the stool was then manually evacuated. When complete evacuation was performed, there was a small ulcerated area in the distal rectum that was seen on the mucosal lining. I changed gown and gloves and scrubbed back into the sterile field of the abdomen. Drain positions were checked and the fascia was closed with running # 1 PDS suture. The skin and subcutaneous layer were left open. The knot of the suture was tucked in the subcutaneous layer with 3-0 Vicryl stitches. A moistened Kerlix dressing was placed in the subcutaneous tissue to prevent defecation. Overlying ABD dressings were placed. The patient was stable throughout the procedure and was transferred back to the CCU in his preprocedure state. Dr. Dill was present throughout the entire case and helped provide critical exposure through retraction and simultaneous manipulation of the rectum from within the abdomen during fecal impaction. SYLVAIN
--- NOTE | 2018-03-03 11:52 | Progress Note ---
DATE OF VISIT 02/28/2018 REASON FOR VISIT Covering surgical care for Dr. Gomez. SUBJECTIVE Arslan has been having low grade fevers with a temperature of 100.3 today. His white blood cell count increased to 10.5. He has walked some and sat on the edge of the bed. His NG tube remains on low intermittent suction. Given his fevers and worsening white count, a CT scan of the abdomen and pelvis was ordered by the hospitalist service. It showed a large subdiaphragmatic abscess. OBJECTIVE VITAL SIGNS: T-max 100.3. Pulse in the 130s. GENERAL: The patient is awake and alert. He is in his normal mood and does not appear to be in acute distress. ABDOMEN: Soft. His ostomy has good output and is perfused. Drain shows serosanguineous output. He does have tenderness in the abdomen. IMAGING CT scan the abdomen and pelvis was reviewed by me and did show the large abscess posterior to the spleen and in the subdiaphragmatic region well away from the left upper quadrant drain. It appears there may be a window for percutaneous drainage inferior to the costal margin to the inferior portion of the abscess. IMPRESSION 1. Postop day #5 status post exploratory laparotomy with resection of the transverse and left colon with a Mendoza's procedure for feculent peritonitis due to perforation of the splenic flexure from ischemic changes. 2. Subdiaphragmatic abscess at the left upper quadrant that is undrained by surgical drains. 3. Autism spectrum. PLAN 1. Continue IV antibiotics. 2. See if interventional radiology is able to perform percutaneous drainage of the largest abscess cavity. A preliminary report of the CT showed other possible smaller abscesses, but this will be reviewed with Radiology to see if these are significant enough to warrant reoperation versus a percutaneous procedure. 3. Continue NG tube to suction. 4. Continue TPN. 5. I did discuss the situation of the CT findings with the patient's father by telephone. His uncle was at the bedside. SYLVAIN
--- NOTE | 2018-03-03 11:58 | Progress Note ---
DATE OF VISIT 03/01/2018 REASON FOR VISIT Discuss surgical plan. I did explain the radiologist's impression that percutaneous drainage of his subdiaphragmatic abscess would require passage of the drain through the lung tissue. I explained that this would lead to likely contamination of the chest cavity and was not desirable. Given the inability to drain the area percutaneously, I did recommend that we take Cosmo back to the operating room for operative evacuation and drain placement. After explaining the situation, his mother who was at the bedside was in agreement with a return trip to the operating room. This will be scheduled later today. I did discuss the surgical risks of exploratory laparotomy. I explained that there could be injury to intraabdominal contents such as an inadvertent enterotomy if adhesiolysis was necessary. I also explained that there was still the possibility of future abscess formation even with additional drain placement given his significant contamination. I explained that I did not feel that nonoperative intervention was an option because of the significant size of his abscess. I also explained that there were risks of anesthesia in his condition. I was clear that return to the OR might improve his clinical situation and ability to recover but that even with reoperation he had a significant amount of recovery, given his current condition. SYLVAIN
[2018-03-03] MEDS: INSULIN ASPART 100unit/ml INJECTION SQ PRN (12:37)
[2018-03-03] MEDS: FAT EMULSION 20% 250 ML IV SCH (15:40)
[2018-03-03] MEDS: [UNRECOGNIZED DRUG - OTHER] IV SCH (19:29)
[2018-03-03] MEDS: AMINO ACIDS IV SCH (19:29)
[2018-03-03] MEDS: DEXTROSE 25% IV SCH (19:29)
[2018-03-03] MEDS: LR 1,000 ML IV SCH (19:30)
[2018-03-03] MEDS: SALINE FLUSH 10ml SYRINGE IVF PRN ×2 (19:35→20:54)
[2018-03-03] MEDS: ACETAMINOPHEN 650 MG SUPPOSITORY PR PRN (20:30)
[2018-03-03] MEDS: NS FLUSH BAG 500ml IV PRN (23:24)
[2018-03-04] MEDS: ACETAMINOPHEN 650 MG SUPPOSITORY PR PRN ×2 (04:02→19:45)
[2018-03-04] MEDS: SALINE FLUSH 10ml SYRINGE IVF PRN ×7 (04:19→20:11)
[2018-03-04] MEDS: PIPERACILLIN/TAZOBACTAM 3.375 GM in NS 100 ML IV SCH ×4 (04:20→23:13)
[2018-03-04] MEDS: MORPHINE SULFATE 4mg INJECTION IVP PRN ×3 (04:20→14:57)
[2018-03-04] MEDS: ALBUTEROL/IPRATROPIUM 2.5mg-0.5mg/3ml NEB IPPB SCH ×3 (08:02→18:37)
[2018-03-04] MEDS: FLUCONAZOLE PB 100 MG/50 ML BAG IV SCH (08:25)
[2018-03-04] MEDS ORDERED: SODIUM FERRIC GLUC. COMPLEX 125 MG in NS 100 ML IV ONE (09:00)
--- NOTE | 2018-03-04 09:14 | Progress Note ---
- Date 03/04/18 Subjective: Patient in bed. Had Tmax 100.8 last night and got Tylenol. He got iv morphine 4mg x 7 times. Nurse reports respiratory rate improved with Ativan. Patient says no when asked whether he is in pain. He says yes when asked whether pain is his biggest problem. Objective Vital signs: Temperature 97.9 F 03/04/18 07:48 Pulse Rate 128 H 03/04/18 08:00 Respiratory Rate 13 03/04/18 08:24 Blood Pressure 109/68 03/04/18 08:00 Pulse Oximetry 96 03/04/18 08:00 Rhythm: Sinus Tachycardia Height/Weight/BMI: Height 5 ft 9 in Weight 63 kg Body Mass Index 22.5 - Constitutional Present: mild distress - Routine HEENT Exam Head: Present: normocephalic, atraumatic Eye: Present: EOMI, PERRL ENT: Present: mucous membranes dry - Routine Respiratory Exam Present: CTA bilaterally. Absent: accessory muscle use - Routine Cardiovascular Exam Present: tachycardia - Routine Abdominal Exam Present: tenderness, drain, ostomy. Absent: rebound, guarding - Routine Extremities Exam Present: edema. Absent: cyanosis, clubbing Comments: trace Results - Labs CBC & Chem 7: 03/04/18 04:18 03/04/18 04:18 Microbiology Results: Microbiology 03/01/18 18:56 Abdomen, Left Upper Gram Stain - Final 03/01/18 18:56 Abdomen, Left Upper Surgical Culture - Final Escherichia coli Anaerobic Gram-Negative Bhanu Anaerobic Gram-Positive Cocci 02/23/18 20:15 Peripheral/Iv Start Gram Stain - Final Not performed 02/23/18 20:15 Peripheral/Iv Start Blood Culture - Final No Growth After 5 Days 02/23/18 20:05 Peripheral/Iv Start Gram Stain - Final Not performed 02/23/18 20:05 Peripheral/Iv Start Blood Culture - Final No Growth After 5 Days 02/20/18 20:07 Peripheral/Iv Start Blood Culture - Final No Growth After 5 Days Assessment and Plan (1) Megacolon Problem details: Toxic megacolon Current visit: Yes Status: Acute (2) Perforation of colon Problem details: Perforation of the splenic flexure due to ischemic changes Current visit: Yes Status: Acute Assessment and Plan: Assessment 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 Feculent peritonitis Subdiaphragmatic abscess, left upper quadrant Tachycardia Severe constipation Severe sepsis Fever Severe iron deficiency anemia. Autism Dental problems Hypophosphatemia Hypokalemia XIOMARA LLL atalectasis Acute kidney injury with oliguria-postop Hyperkalemia Plan: s/p ex lap 03/01 with placement of drains by Dr. Hills. Fever and WBC up slightly. Wound cx growing e coli, sensitive to zosyn. Fluconazole. Check CXR Continue TPN, K+ improved. Good urine output. Output per NG and ostomy down since 03/01 ex lap. Continued tachycardia. Hold LR as patient with trace edema. Start fentanyl patch for pain. He got 28 mg iv morphine yesterday. Starting fentanyl at 12mcg d /t possible interaction with Fluconazole. 1 unit PRBCs given 03/01. Total of 4 units transfused Ferrlicit dose given 02/25, plan to repeat dose 03/04. Discussed with nursing who provide supplemental history. Encourage activity. Prognosis guarded. - Physician Narrative Narrative: Date: 03/04/18 Time: 0854 Hospital Course Summary Disclaimer: The visit summary below is not to be considered part of the above Progress Note. Hospital Course: 02/20/18 Admit, CCU. Bowel rest - NPO. Cont IVF - 1/2 NS with Na of 144. Consult Dr. Gomez for mgt. Sx management with protonix, morphine, zofran. Cont IVF for tachycardia; sepsis. Repeat lactate. Cont Zosyn for bowel coverage. Follow BC results. Iron w/u in progress. Type & screen ordered. D/W with Dr. Stevens and RN. 02/22. Gastrograffin enema 02/21 with copious stool resulting. However, still with stool in rectal vault. Deferring further management to surgery team, await recs. Cont zosyn given bandemia, tachycardia and concern for toxic megacolon. 02/23 Clinically deteriorating. Going for surgery for perforation/free air. Near total colectomy performed. Became hypotensive, tachycardic with rates into 180s. Aggressively fluid resuscitated. 02/24 UOP, tachycardia improved. Cont abx. Initiate TPN. Monitoring for return of bowel fxn. 02/25 Given Kphos Transfused another 1U PRBCs. Stopped LR. Surgery to trial clamping NGT. Intermittently febrile- rectal tylenol. 02/27/18 Remains on TPN, tolerating limited oral liquids earlier today however resultant emesis has required resumption of NG suction. Good output per ostomy; 2400 mL output reported during prior 24-hour period. Hemoglobin drifting down, ongoing hypokalemia-post being reassessed this afternoon. Potassium increased and TPN but may require supplemental boluses due to potassium lost in stool and emesis. Persistent tachycardia-may require additional blood transfusion. Remains on Zosyn for peritonitis; chest x-ray with pleural effusion but no evidence of pneumonia. May require repeat CT abdomen/pelvis to exclude intra-abdominal abscess. 02/28/18 Remains on TPN, electrolytes stable. Good urine output per ostomy but continues to have high volume output per NG. Output significantly higher than input, weight down, ongoing tachycardia--> 1 L fluid bolus tonight. Anticipate ongoing need for fluids to match fluid losses. CT abdomen/pelvis discussed with radiology this evening and subsequently with Dr. Hills; will review further with radiology tomorrow to determine if drainage can be performed of the subphrenic abscess percutaneously or if surgical drainage/washout will be needed due to presence of multiple smaller fluid collections suggestive of early abscesses. Dr. Hills notified patient 's parents of findings. Hemoglobin continues to drift down very slowly, may be slightly hemoconcentrated at present. Type and screen in a.m. Anticipating transfusion in the next 1-2 days. 03/01/18 Subdiaphragmatic abscess and left upper quadrant-discussed with radiology and message subsequently relayed to Dr. Hills regarding potential risk of percutaneous drainage. Patient tenably scheduled to return to the operating room later today. Several very small extensive gas in the pelvis without clear room enhancement to suggest abscess, may simply be postoperative change. Remains on TPN, electrolytes stable. Good urine output per ostomy but continues to have high volume output per NG. Output significantly higher than input, weight down, ongoing tachycardia--> 1 L fluid bolus this a.m. and continue normal saline at 100 mL per hour. 2 units PRBCs matched preoperatively; one being given prior to surgery for hemoglobin 7.4. 03/02 s/p ex lap with placement of drains by Dr. Hills. Febrile before surgery. WBC up post-op. Wound cx growing GPC, GNR, GPR. Continue zosyn Remains on TPN, reduce K+. Good urine output. Output per NG down. Continued tachycardia. Continue IVF and treat pain. Output significantly higher than input, weight down, ongoing tachycardia--> 1 L fluid bolus this a.m. and continue normal saline at 100 mL per hour. Anticipate ongoing need for fluids to match fluid losses. 1 unit PRBCs given 03/01. Total of 4 units transfused Ferrlicit dose given 02/25, plan to repeat dose 03/04. Discussed with nursing who provide supplemental history; mother updated. Prognosis guarded. 03/03 s/p ex lap 03/01 with placement of drains by Dr. Hills. Afebrile and WBC down. Wound cx growing GPC, GNR, GPR. Continue zosyn and fluconazole Continue TPN, K+ improved. Good urine output. Output per NG and ostomy down since 03/01 ex lap. Continued tachycardia. Continue IVF and treat pain. ? whether anxious. Trial of Ativan Anticipate ongoing need for fluids to match fluid losses. 1 unit PRBCs given 03/01. Total of 4 units transfused Ferrlicit dose given 02/25, plan to repeat dose 03/04. Discussed with nursing who provide supplemental history; mother updated. Prognosis guarded. 03/04 s/p ex lap 03/01 with placement of drains by Dr. Hills. Fever and WBC up slightly. Wound cx growing e coli, sensitive to zosyn. Fluconazole. Check CXR Continue TPN, K+ improved. Good urine output. Output per NG and ostomy down since 03/01 ex lap. Continued tachycardia. Hold LR as patient with trace edema. Start fentanyl patch for pain. He got 28 mg iv morphine yesterday. Starting fentanyl at 12mcg d /t possible interaction with Fluconazole. 1 unit PRBCs given 03/01. Total of 4 units transfused Ferrlicit dose given 02/25, plan to repeat dose 03/04. Discussed with nursing who provide supplemental history. Encourage activity. Prognosis guarded
[2018-03-04] MEDS: LR 1,000 ML IV SCH (10:02)
[2018-03-04] MEDS: PANTOPRAZOLE 40 MG INJECTION IVP SCH (10:29)
[2018-03-04] MEDS: ENOXAPARIN 40 MG/0.4 ML INJECTION SQ SCH (10:29)
--- NOTE | 2018-03-04 11:37 | Pharmacy Consult-TPN/PPN ---
Pharmacy Consult-TPN/PPN - Laboratory Information Chemistry Turbidity < 20 (0-20) 03/04/18 04:18 Sodium 133 MEQ/L (136-146) L 03/04/18 04:18 Potassium 4.2 MEQ/L (3.6-5) 03/04/18 04:18 Chloride 99 MEQ/L (98-107) 03/04/18 04:18 Carbon Dioxide 25 MEQ/L (22-30) 03/04/18 04:18 Anion Gap 9 meq/L (5-15) 03/04/18 04:18 BUN 14.0 MG/DL (9-20) 03/04/18 04:18 Creatinine 0.5 mg/dL (0.8-1.5) L 03/04/18 04:18 GFR Calculation 195 03/04/18 04:18 BUN/Creatinine Ratio 28 RATIO (6-26) H 03/04/18 04:18 Glucose 94 MG/DL (75-110) 03/04/18 04:18 Glucometer 147 mg/dL (65-110) 03/04/18 06:07 Calculated Osmolality 257 MOSM/KG (261-280) L 03/04/18 04:18 Calcium 7.4 MG/DL (8.4-10.2) L 03/04/18 04:18 Ionized Calcium [place] 1.11 MMOL/L (1.12-1.32) L 02/25/18 04:20 Phosphorus 4.0 MG/DL (2.5-4.5) 03/04/18 04:18 Magnesium 2.3 MG/DL (1.6-2.3) 03/03/18 04:06 Iron 11 ug/dL (49-181) L 02/20/18 20:07 TIBC 342 ug/dL (261-497) 02/20/18 20:07 % Saturation 3 % (13-59) L 02/20/18 20:07 Ferritin 2.44 ng/mL (17-464) L 02/20/18 20:07 Total Bilirubin 0.70 MG/DL (0.20-1.30) 02/21/18 04:11 Icterus Index < 2 (0-7) 03/04/18 04:18 AST 17 U/L (17-59) 02/21/18 04:11 ALT 8 U/L (1-50) 02/21/18 04:11 Alkaline Phosphatase 72 U/L (38-126) 02/21/18 04:11 Total Protein 6.9 g/dL (6.3-8.2) 02/21/18 04:11 Albumin 2.5 g/dL (3.5-5.0) L 03/04/18 04:18 Globulin 2.7 G/DL (2.4-3.6) 02/21/18 04:11 Albumin/Globulin Ratio 1.6 RATIO (1.1-2.2) 02/21/18 04:11 Lipase 21 U/L (23-300) L 02/20/18 15:25 Plasma Lactate 1.3 MMOL/L (0.6-2.2) 02/24/18 04:13 Vitamin B12 367 pg/mL (239-931) 02/20/18 20:07 Procalcitonin < 0.05 NG/ML 02/21/18 04:11 Specimen Hemolysis < 15 (0-25) 03/04/18 04:18 Intake and Output 03/03/18 03/04/18 03/05/18 06:59 06:59 06:59 Intake Total 4207.500 / 4207.500 4218.334 / 4218.334 423.333 / 423.333 Output Total 3040 / 3040 2985 / 2985 370 / 370 Balance 1167.500 / 9068.011 0499.334 / 1233.334 53.333 / 53.333 Weight 64 kg 64.4 kg 63 kg Intake: IV 4167.500 / 4167.500 4098.334 / 4098.334 393.333 / 393.333 Fat Emulsion 20% 250 ml @ 25 250.00 / 250.00 250.000 / 250.000 mls/hr IV 1600 [facility] Rx#: [id number] Fluconazole Pb 100 mg In 50 ml 50 / 50 50 / 50 50 / 50 @ 50 mls/hr IV DAILY [facility] Rx#: [id number] Lr 1,000 ml @ 50 mls/hr IV . 1084.167 / 1084.167 998.334 / 998.334 120.833 / 120.833 Q20H [facility] Rx#:[id number] Piperacillin/Tazobactam 3.375 400 / 400 400 / 400 100 / 100 gm In Ns 100 ml @ 200 mls/hr IV Q6H [facility] Rx#:[id number] Sodium Acetate 80 meq Potassium 683.333 / 209.817 3312.000 / 2400.000 100 / 100 Acetate Inj 50 meq SODIUM PHOSPHATE (mEq) 30 meq Magnesium Sulfate Inj 12 meq Calcium Chloride 9.3 meq Multi- Vit Infusion 10 ml Multi-Trace Elements 1 ml In TPN - Custom Formula 2,000 ml @ 100 mls/hr IV .[id number] [facility] Rx#:[id number] Sodium Chloride Conc 80 meq 1200.000 / 1200.000 Potassium Acetate Inj 30 meq POTASSIUM PHOSPHATE (mEq) 60 meq Magnesium Sulfate Inj 12 meq Calcium Chloride 9.3 meq Multi-Vit Infusion 10 ml Multi -Trace Elements 1 ml In TPN - Custom Formula 2,000 ml @ 100 mls/hr IV .[id number] [facility] Rx#: [id number] Intake, Gastric Tube Irrigant 40 / 40 110 / 110 30 / 30 Amount Left Nare 40 / 40 110 / 110 30 / 30 Intake, Catheter Irrigant 10 / 10 Amount Output: Urine 750 / 750 Stool 0 / 0 80 / 80 Urine Amount (Catheter) 2096 / 2096 1480 / 1480 220 / 220 Gastric Drainage 630 / 630 475 / 475 150 / 150 Left Nare 630 / 630 475 / 475 150 / 150 Wound Drainage 313 / 313 200 / 200 Abdomen 40 / 40 Left Anterior Medial Abdomen 60 / 60 40 / 40 Left Lateral Abdomen 35 / 35 Left Lower Abdomen 38 / 38 22 / 22 Left Lower Lateral Abdomen 80 / 80 11 / 11 Right Anterior Medial Abdomen 55 / 55 47 / 47 Right Lower Lateral Abdomen 45 / 45 40 / 40 Other: Urine Appearance Clear Sediment Clear Urine Color Yellow Yellow Yellow Stool Color Brown Green Stool Consistency Liquid Drain Type Left Anterior Medial Abdomen Bulb [place] Bulb [place] Left Lateral Abdomen Bulb [place] Left Lower Abdomen Bulb [place] Bulb [place] Left Lower Lateral Abdomen Bulb [place] Bulb [place] Right Anterior Medial Abdomen Bulb [place] Bulb [place] Right Lower Lateral Abdomen Bulb [place] Bulb [place] DAY 9 of TPN THERAPY: Electrolytes WNL's, but a decrease in the sodium. Will add NaCl 40mEq to next bag. Continue with rest of the formula. Thank you.
[2018-03-04] MEDS: AMINO ACIDS IV SCH (13:08)
[2018-03-04] MEDS: [UNRECOGNIZED DRUG - OTHER] IV SCH (13:08)
[2018-03-04] MEDS: DEXTROSE 25% IV SCH (13:08)
[2018-03-04] MEDS: FAT EMULSION 20% 250 ML IV SCH (15:56)
[2018-03-04] MEDS ORDERED: SODIUM CHLORIDE IV SCH (16:00)
[2018-03-04] MEDS ORDERED: POTASSIUM ACETATE IV SCH (16:00)
[2018-03-04] MEDS ORDERED: SODIUM ACETATE IV SCH (16:00)
[2018-03-04] MEDS ORDERED: [UNRECOGNIZED DRUG - OTHER] IV SCH (16:00)
[2018-03-04] MEDS: NS FLUSH BAG 500ml IV PRN (23:14)
[2018-03-05] MEDS: PIPERACILLIN/TAZOBACTAM 3.375 GM in NS 100 ML IV SCH ×4 (04:25→23:40)
[2018-03-05] MEDS: INSULIN ASPART 100unit/ml INJECTION SQ PRN ×2 (05:58→23:54)
[2018-03-05] MEDS: ALBUTEROL/IPRATROPIUM 2.5mg-0.5mg/3ml NEB IPPB SCH ×3 (07:33→19:29)
[2018-03-05] MEDS: SALINE FLUSH 10ml SYRINGE IVF PRN ×3 (08:18→18:46)
[2018-03-05] MEDS: PANTOPRAZOLE 40 MG INJECTION IVP SCH (08:18)
[2018-03-05] MEDS: ENOXAPARIN 40 MG/0.4 ML INJECTION SQ SCH (08:18)
[2018-03-05] MEDS: FLUCONAZOLE PB 100 MG/50 ML BAG IV SCH (08:19)
--- NOTE | 2018-03-05 08:44 | Progress Note ---
- Date 03/05/18 Subjective: Sitting in chair. Says his pain is not as bad. Took a drink of 7-Up earlier. Remains tachycardic and is in 140s while sitting. Has not needed morphine since yesterday afternoon. Tmax was 100.9. 675 out from NG in past 24 hours and 128 out in total from his 5 drains. Objective Vital signs: Temperature 99.5 F 03/05/18 04:00 Pulse Rate 132 H 03/05/18 06:00 Respiratory Rate 16 03/05/18 07:33 Blood Pressure 115/64 03/05/18 06:00 Pulse Oximetry 98 03/05/18 06:00 Rhythm: Sinus Tachycardia Height/Weight/BMI: Height 5 ft 9 in Weight 63 kg Body Mass Index 22.5 - Constitutional Present: no acute distress - Routine HEENT Exam Head: Present: normocephalic, atraumatic Eye: Present: EOMI, PERRL ENT: Present: mucous membranes moist - Routine Respiratory Exam Present: CTA bilaterally - Routine Cardiovascular Exam Present: tachycardia - Routine Abdominal Exam Present: tenderness. Absent: rebound, guarding - Routine Extremities Exam Present: no edema - Routine Neurological Exam Present: alert Results - Labs CBC & Chem 7: 03/05/18 04:37 03/05/18 04:37 Microbiology Results: Microbiology 03/01/18 18:56 Abdomen, Left Upper Gram Stain - Final 03/01/18 18:56 Abdomen, Left Upper Surgical Culture - Final Escherichia coli Anaerobic Gram-Negative Bhanu Anaerobic Gram-Positive Cocci 02/23/18 20:15 Peripheral/Iv Start Gram Stain - Final Not performed 02/23/18 20:15 Peripheral/Iv Start Blood Culture - Final No Growth After 5 Days 02/23/18 20:05 Peripheral/Iv Start Gram Stain - Final Not performed 02/23/18 20:05 Peripheral/Iv Start Blood Culture - Final No Growth After 5 Days 02/20/18 20:07 Peripheral/Iv Start Blood Culture - Final No Growth After 5 Days Assessment and Plan (1) Megacolon Problem details: Toxic megacolon Current visit: Yes Status: Acute (2) Perforation of colon Problem details: Perforation of the splenic flexure due to ischemic changes Current visit: Yes Status: Acute Assessment and Plan: Assessment 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 Feculent peritonitis Subdiaphragmatic abscess, left upper quadrant Tachycardia Severe constipation Severe sepsis Fever Severe iron deficiency anemia. Autism Dental problems Hypophosphatemia Hypokalemia XIOMARA LLL atalectasis Acute kidney injury with oliguria-postop Hyperkalemia thrombocytosis Plan: s/p ex lap 03/01 with placement of drains by Dr. Hills. Wound VAC. Fever. WBC down slightly. Wound cx growing e coli, sensitive to zosyn. Fluconazole. Check CXR Continue TPN, decrease Mg. Good urine output. Output per NG up yesterday. Continued tachycardia. Holding LR as patient with trace edema. Appears more comfortable with fentanyl patch for pain. 1 unit PRBCs given 03/01. Total of 4 units transfused Ferrlicit dose given 02/25, plan to repeat dose 03/04. Discussed with nursing who provide supplemental history. Platlets trending up. Check inflammatory markers. If continued fever, consider repeating CT Encourage activity. Prognosis guarded. - Physician Narrative Narrative: Date: 03/05/18 Time: 0836 Hospital Course Summary Disclaimer: The visit summary below is not to be considered part of the above Progress Note. Hospital Course: 02/20/18 Admit, CCU. Bowel rest - NPO. Cont IVF - 1/ NS with Na of 144. Consult Dr[address] Gomez for mgt. Sx management with protonix, morphine, zofran. Cont IVF for tachycardia; sepsis. Repeat lactate. Cont Zosyn for bowel coverage. Follow BC results. Iron w/u in progress. Type & screen ordered. D/W with Dr. Stevens and RN. 02/22. Gastrograffin enema 02/21 with copious stool resulting. However, still with stool in rectal vault. Deferring further management to surgery team, await recs. Cont zosyn given bandemia, tachycardia and concern for toxic megacolon. 02/23 Clinically deteriorating. Going for surgery for perforation/free air. Near total colectomy performed. Became hypotensive, tachycardic with rates into 180s. Aggressively fluid resuscitated. 02/24 UOP, tachycardia improved. Cont abx. Initiate TPN. Monitoring for return of bowel fxn. 02/25 Given Kphos Transfused another 1U PRBCs. Stopped LR. Surgery to trial clamping NGT. Intermittently febrile- rectal tylenol. 02/27/18 Remains on TPN, tolerating limited oral liquids earlier today however resultant emesis has required resumption of NG suction. Good output per ostomy; 2400 mL output reported during prior 24-hour period. Hemoglobin drifting down, ongoing hypokalemia-post being reassessed this afternoon. Potassium increased and TPN but may require supplemental boluses due to potassium lost in stool and emesis. Persistent tachycardia-may require additional blood transfusion. Remains on Zosyn for peritonitis; chest x-ray with pleural effusion but no evidence of pneumonia. May require repeat CT abdomen/pelvis to exclude intra-abdominal abscess. 02/28/18 Remains on TPN, electrolytes stable. Good urine output per ostomy but continues to have high volume output per NG. Output significantly higher than input, weight down, ongoing tachycardia--> 1 L fluid bolus tonight. Anticipate ongoing need for fluids to match fluid losses. CT abdomen/pelvis discussed with radiology this evening and subsequently with Dr. Hills; will review further with radiology tomorrow to determine if drainage can be performed of the subphrenic abscess percutaneously or if surgical drainage/washout will be needed due to presence of multiple smaller fluid collections suggestive of early abscesses. Dr. Hills notified patient 's parents of findings. Hemoglobin continues to drift down very slowly, may be slightly hemoconcentrated at present. Type and screen in a.m. Anticipating transfusion in the next 1-2 days. 03/01/18 Subdiaphragmatic abscess and left upper quadrant-discussed with radiology and message subsequently relayed to Dr. Hills regarding potential risk of percutaneous drainage. Patient tenably scheduled to return to the operating room later today. Several very small extensive gas in the pelvis without clear room enhancement to suggest abscess, may simply be postoperative change. Remains on TPN, electrolytes stable. Good urine output per ostomy but continues to have high volume output per NG. Output significantly higher than input, weight down, ongoing tachycardia--> 1 L fluid bolus this a.m. and continue normal saline at 100 mL per hour. 2 units PRBCs matched preoperatively; one being given prior to surgery for hemoglobin 7.4. 03/02 s/p ex lap with placement of drains by Dr. Hills. Febrile before surgery. WBC up post-op. Wound cx growing GPC, GNR, GPR. Continue zosyn Remains on TPN, reduce K+. Good urine output. Output per NG down. Continued tachycardia. Continue IVF and treat pain. Output significantly higher than input, weight down, ongoing tachycardia--> 1 L fluid bolus this a.m. and continue normal saline at 100 mL per hour. Anticipate ongoing need for fluids to match fluid losses. 1 unit PRBCs given 03/01. Total of 4 units transfused Ferrlicit dose given 02/25, plan to repeat dose 03/04. Discussed with nursing who provide supplemental history; mother updated. Prognosis guarded. 03/03 s/p ex lap 03/01 with placement of drains by Dr. Hills. Afebrile and WBC down. Wound cx growing GPC, GNR, GPR. Continue zosyn and fluconazole Continue TPN, K+ improved. Good urine output. Output per NG and ostomy down since 03/01 ex lap. Continued tachycardia. Continue IVF and treat pain. ? whether anxious. Trial of Ativan Anticipate ongoing need for fluids to match fluid losses. 1 unit PRBCs given 03/01. Total of 4 units transfused Ferrlicit dose given 02/25, plan to repeat dose 03/04. Discussed with nursing who provide supplemental history; mother updated. Prognosis guarded. 03/04 s/p ex lap 03/01 with placement of drains by Dr. Hills. Fever and WBC up slightly. Wound cx growing e coli, sensitive to zosyn. Fluconazole. Check CXR Continue TPN, K+ improved. Good urine output. Output per NG and ostomy down since 03/01 ex lap. Continued tachycardia. Hold LR as patient with trace edema. Start fentanyl patch for pain. He got 28 mg iv morphine yesterday. Starting fentanyl at 12mcg d /t possible interaction with Fluconazole. 1 unit PRBCs given 03/01. Total of 4 units transfused Ferrlicit dose given 02/25, plan to repeat dose 03/04. Discussed with nursing who provide supplemental history. Encourage activity. Prognosis guarded 03/05 s/p ex lap 03/01 with placement of drains by Dr. Hills. Wound VAC. Fever. WBC down slightly. Wound cx growing e coli, sensitive to zosyn. Fluconazole. Check CXR Continue TPN, decrease Mg. Good urine output. Output per NG up yesterday. Continued tachycardia. Holding LR as patient with trace edema. Appears more comfortable with fentanyl patch for pain. 1 unit PRBCs given 03/01. Total of 4 units transfused Ferrlicit dose given 02/25, plan to repeat dose 03/04. Discussed with nursing who provide supplemental history. Platlets trending up. Check inflammatory markers. If continued fever, consider repeating CT Encourage activity. Prognosis guarded.
--- NOTE | 2018-03-05 09:13 | Pharmacy Consult-TPN/PPN ---
Pharmacy Consult-TPN/PPN - Laboratory Information Chemistry Turbidity < 20 (0-20) 03/05/18 04:37 Sodium 137 MEQ/L (136-146) 03/05/18 04:37 Potassium 3.8 MEQ/L (3.6-5) 03/05/18 04:37 Chloride 101 MEQ/L (98-107) 03/05/18 04:37 Carbon Dioxide 27 MEQ/L (22-30) 03/05/18 04:37 Anion Gap 9 meq/L (5-15) 03/05/18 04:37 BUN 12.0 MG/DL (9-20) 03/05/18 04:37 Creatinine 0.5 mg/dL (0.8-1.5) L 03/05/18 04:37 GFR Calculation 195 03/05/18 04:37 BUN/Creatinine Ratio 24 RATIO (6-26) 03/05/18 04:37 Glucose 99 MG/DL (75-110) 03/05/18 04:37 Glucometer 151 mg/dL (65-110) 03/05/18 05:55 Calculated Osmolality 264 MOSM/KG (261-280) 03/05/18 04:37 Calcium 7.7 MG/DL (8.4-10.2) L 03/05/18 04:37 Ionized Calcium [place] 1.11 MMOL/L (1.12-1.32) L 02/25/18 04:20 Phosphorus 4.0 MG/DL (2.5-4.5) 03/05/18 04:37 Magnesium 2.6 MG/DL (1.6-2.3) H 03/05/18 04:37 Iron 11 ug/dL (49-181) L 02/20/18 20:07 TIBC 342 ug/dL (261-497) 02/20/18 20:07 % Saturation 3 % (13-59) L 02/20/18 20:07 Ferritin 2.44 ng/mL (17-464) L 02/20/18 20:07 Total Bilirubin 0.70 MG/DL (0.20-1.30) 02/21/18 04:11 Icterus Index < 2 (0-7) 03/05/18 04:37 AST 17 U/L (17-59) 02/21/18 04:11 ALT 8 U/L (1-50) 02/21/18 04:11 Alkaline Phosphatase 72 U/L (38-126) 02/21/18 04:11 Total Protein 6.9 g/dL (6.3-8.2) 02/21/18 04:11 Albumin 2.7 g/dL (3.5-5.0) L 03/05/18 04:37 Globulin 2.7 G/DL (2.4-3.6) 02/21/18 04:11 Albumin/Globulin Ratio 1.6 RATIO (1.1-2.2) 02/21/18 04:11 Lipase 21 U/L (23-300) L 02/20/18 15:25 Plasma Lactate 1.3 MMOL/L (0.6-2.2) 02/24/18 04:13 Vitamin B12 367 pg/mL (239-931) 02/20/18 20:07 Procalcitonin < 0.05 NG/ML 02/21/18 04:11 Specimen Hemolysis < 15 (0-25) 03/05/18 04:37 Intake and Output 03/04/18 03/05/18 03/06/18 06:59 06:59 06:59 Intake Total 4218.334 / 4218.334 3533.333 / 3533.333 30 / 30 Output Total 2985 / 2985 4201 / 4201 195 / 195 Balance 1233.334 / 1233.334 -667.667 / -667.667 -165 / -165 Weight 64.4 kg 63 kg 61.5 kg Intake: IV 4098.334 / 4098.334 3353.333 / 3353.333 Fat Emulsion 20% 250 ml @ 25 250.000 / 250.000 250.000 / 250.000 mls/hr IV 1600 [facility] Rx#: [id number] Fluconazole Pb 100 mg In 50 ml 50 / 50 50 / 50 @ 50 mls/hr IV DAILY [facility] Rx#: [id number] Lr 1,000 ml @ 50 mls/hr IV . 998.334 / 998.334 120.833 / 120.833 Q20H [facility] Rx#:[id number] Piperacillin/Tazobactam 3.375 400 / 400 400 / 400 gm In Ns 100 ml @ 200 mls/hr IV Q6H [facility] Rx#:[id number] Sodium Acetate 80 meq Potassium 2400.000 / 2400.000 998.333 / 998.333 Acetate Inj 50 meq SODIUM PHOSPHATE (mEq) 30 meq Magnesium Sulfate Inj 12 meq Calcium Chloride 9.3 meq Multi- Vit Infusion 10 ml Multi-Trace Elements 1 ml In TPN - Custom Formula 2,000 ml @ 100 mls/hr IV .[id number] [facility] Rx#:[id number] Sodium Chloride Conc 40 meq 1401.667 / 1401.667 Sodium Acetate 80 meq Potassium Acetate Inj 50 meq SODIUM PHOSPHATE (mEq) 30 meq Magnesium Sulfate Inj 12 meq Calcium Chloride 9.3 meq Multi- Vit Infusion 10 ml Multi-Trace Elements 1 ml In TPN - Custom Formula 2,000 ml @ 100 mls/hr IV .Q21H2M [facility] Rx#:[id number] Sodium Ferric Gluc. Complex 125 110 / 110 mg In Ns 100 ml @ 110 mls/hr IV [facility] Rx#:[id number] Oral 30 / 30 Intake, Gastric Tube Irrigant 110 / 110 150 / 150 30 / 30 Amount Left Nare 110 / 110 150 / 150 30 / 30 Intake, Catheter Irrigant 10 / 10 Amount Output: Urine 750 / 750 Stool 80 / 80 450 / 450 Urine Amount (Catheter) 1480 / 1480 2948 / 2948 195 / 195 Gastric Drainage 475 / 475 675 / 675 Left Nare 475 / 475 675 / 675 Wound Drainage 200 / 200 128 / 128 Abdomen 40 / 40 20 / 20 Left Anterior Medial Abdomen 40 / 40 15 / 15 Left Lower Abdomen 22 / 22 10 / 10 Left Lower Lateral Abdomen 11 / 11 10 / 10 Right Anterior Medial Abdomen 47 / 47 55 / 55 Right Lower Lateral Abdomen 40 / 40 18 / 18 Other: Urine Appearance Sediment Clear Clear Urine Color Yellow Yellow Yellow Stool Color Brown Brown Green Green Stool Consistency Liquid Liquid Drain Type Left Anterior Medial Abdomen Bulb [place] Bulb [place]raw[place] Left Lower Abdomen Bulb [place] Bulb [place] Left Lower Lateral Abdomen Bulb [place] Bulb [place] Right Anterior Medial Abdomen Bulb [place] Bulb [place]raw[place] Right Lower Lateral Abdomen Bulb [place]raw[place] Bulb [place]rawley DAY 10 OF TPN THERAPY: Electrolyte Notes: - Sodium improving. Will continue with the additional NaCl 40mEq in bag. - Potassium trending down. Will increase the K Acetate to 80mEq in each bag. - Calcium improving. Will continue with the same Calcium Chloride of 9.3mEq in each bag, as Calcium Gluconate is on National shortage right now. - Magnesium slightly high. Will decrease Mag Sulfate to 4mEq per bag. Continue rest of the Formula. Infusing at 100ml/hr via PICC. Also receiving Fat Emulsion 20% 100ml, one bag daily to prevent EFAD. All this gives approximately 2240 kcal per day. Thank you
--- NOTE | 2018-03-05 10:56 | XRay Report ---
Indication: fever PROCEDURE: XR chest 1V: Encounter: Initial Comparison: February 27, 2018 Findings: Surgical drain seen in the left upper quadrant of the abdomen. Nasogastric tube in place with the tip and side port projecting over the body of the stomach. Additional surgical drain projecting over the right upper quadrant of the abdomen. Continued lower lobe airspace consolidation on the left with associated left effusion. Right lung is grossly clear. Right PICC line in place with the tip projecting over the lower SVC. Impression: Continued left lower lobe airspace consolidation with left pleural effusion. .
[2018-03-05] MEDS: POTASSIUM ACETATE IV SCH (13:38)
[2018-03-05] MEDS: SODIUM ACETATE IV SCH (13:38)
[2018-03-05] MEDS: SODIUM CHLORIDE IV SCH (13:38)
[2018-03-05] MEDS: [UNRECOGNIZED DRUG - OTHER] IV SCH (13:38)
[2018-03-05] MEDS: MORPHINE SULFATE 4mg INJECTION IVP PRN ×3 (15:54→23:54)
[2018-03-05] MEDS: FAT EMULSION 20% 250 ML IV SCH (15:54)
[2018-03-06] MEDS: ACETAMINOPHEN 650 MG SUPPOSITORY PR PRN ×2 (00:01→20:38)
[2018-03-06] MEDS: MORPHINE SULFATE 4mg INJECTION IVP PRN ×3 (04:10→15:25)
[2018-03-06] MEDS: PIPERACILLIN/TAZOBACTAM 3.375 GM in NS 100 ML IV SCH ×4 (05:18→23:13)
[2018-03-06] MEDS: PANTOPRAZOLE 40 MG INJECTION IVP SCH (08:10)
[2018-03-06] MEDS: ENOXAPARIN 40 MG/0.4 ML INJECTION SQ SCH (08:11)
[2018-03-06] MEDS: FLUCONAZOLE PB 100 MG/50 ML BAG IV SCH (08:11)
[2018-03-06] MEDS: ALBUTEROL/IPRATROPIUM 2.5mg-0.5mg/3ml NEB IPPB SCH ×3 (08:15→18:48)
--- NOTE | 2018-03-06 09:25 | Pharmacy Consult-TPN/PPN ---
Pharmacy Consult-TPN/PPN - Laboratory Information Chemistry Turbidity < 20 (0-20) 03/06/18 04:04 Sodium 140 MEQ/L (136-146) 03/06/18 04:04 Potassium 4.2 MEQ/L (3.6-5) 03/06/18 04:04 Chloride 103 MEQ/L (98-107) 03/06/18 04:04 Carbon Dioxide 27 MEQ/L (22-30) 03/06/18 04:04 Anion Gap 10 meq/L (5-15) 03/06/18 04:04 BUN 14.0 MG/DL (9-20) 03/06/18 04:04 Creatinine 0.6 mg/dL (0.8-1.5) L 03/06/18 04:04 GFR Calculation 158 03/06/18 04:04 BUN/Creatinine Ratio 23 RATIO (6-26) 03/06/18 04:04 Glucose 106 MG/DL (75-110) 03/06/18 04:04 Glucometer 151 mg/dL (65-110) 03/05/18 23:49 Calculated Osmolality 270 MOSM/KG (261-280) 03/06/18 04:04 Calcium 8.1 MG/DL (8.4-10.2) L 03/06/18 04:04 Ionized Calcium [place] 1.11 MMOL/L (1.12-1.32) L 02/25/18 04:20 Phosphorus 4.0 MG/DL (2.5-4.5) 03/05/18 04:37 Magnesium 2.2 MG/DL (1.6-2.3) 03/06/18 04:04 Iron 11 ug/dL (49-181) L 02/20/18 20:07 TIBC 342 ug/dL (261-497) 02/20/18 20:07 % Saturation 3 % (13-59) L 02/20/18 20:07 Ferritin 2.44 ng/mL (17-464) L 02/20/18 20:07 Total Bilirubin 0.70 MG/DL (0.20-1.30) 03/06/18 04:04 Icterus Index < 2 (0-7) 03/06/18 04:04 AST 37 U/L (17-59) 03/06/18 04:04 ALT 40 U/L (1-50) 03/06/18 04:04 Alkaline Phosphatase 134 U/L (38-126) H 03/06/18 04:04 C-Reactive Protein 172.0 mg/L (0-9) H 03/06/18 04:04 Total Protein 5.6 g/dL (6.3-8.2) L 03/06/18 04:04 Albumin 2.5 g/dL (3.5-5.0) L 03/06/18 04:04 Globulin 3.1 G/DL (2.4-3.6) 03/06/18 04:04 Albumin/Globulin Ratio 0.8 RATIO (1.1-2.2) L 03/06/18 04:04 Lipase 21 U/L (23-300) L 02/20/18 15:25 Plasma Lactate 1.3 MMOL/L (0.6-2.2) 02/24/18 04:13 Vitamin B12 367 pg/mL (239-931) 02/20/18 20:07 Procalcitonin < 0.05 NG/ML 02/21/18 04:11 Specimen Hemolysis < 15 (0-25) 03/06/18 04:04 Intake and Output 03/05/18 03/06/18 03/07/18 06:59 06:59 06:59 Intake Total 3533.333 / 3533.333 3307.6564 / 3307.6564 350 / 350 Output Total 4201 / 4201 3514 / 3514 105 / 105 Balance -667.667 / -667.667 -206.3436 / -206.3436 245 / 245 Weight 63 kg 61.5 kg 62 kg Intake: IV 3353.333 / 3353.333 3037.6564 / 3037.6564 350 / 350 Fat Emulsion 20% 250 ml @ 25 250.000 / 250.000 250.0 / 250.0 mls/hr IV 1600 [facility] Rx#: [id number] Fluconazole Pb 100 mg In 50 ml 50 / 50 50 / 50 50 / 50 @ 50 mls/hr IV DAILY [facility] Rx#: [id number] Lr 1,000 ml @ 50 mls/hr IV . 120.833 / 120.833 Q20H [facility] Rx#:[id number] Piperacillin/Tazobactam 3.375 400 / 400 400 / 400 gm In Ns 100 ml @ 200 mls/hr IV Q6H [facility] Rx#:[id number] Sodium Acetate 80 meq Potassium 998.333 / 998.333 Acetate Inj 50 meq SODIUM PHOSPHATE (mEq) 30 meq Magnesium Sulfate Inj 12 meq Calcium Chloride 9.3 meq Multi- Vit Infusion 10 ml Multi-Trace Elements 1 ml In TPN - Custom Formula 2,000 ml @ 100 mls/hr IV .[id number] [facility] Rx#:[id number] Sodium Chloride Conc 40 meq 1401.667 / 3022.402 6623.6564 / 2337.6564 300 / 300 Sodium Acetate 80 meq Potassium Acetate Inj 50 meq SODIUM PHOSPHATE (mEq) 30 meq Magnesium Sulfate Inj 4 meq Calcium Chloride 9.3 meq Multi- Vit Infusion 10 ml Multi-Trace Elements 1 ml In TPN - Custom Formula 2,000 ml @ 100 mls/hr IV .Q21H1M [facility] Rx#:[id number] Sodium Ferric Gluc. Complex 125 110 / 110 mg In Ns 100 ml @ 110 mls/hr IV [facility] Rx#:[id number] Oral 30 / 30 90 / 90 Intake, Gastric Tube Irrigant 150 / 150 180 / 180 Amount Left Nare 150 / 150 180 / 180 Output: Stool 450 / 450 300 / 300 Urine Amount (Catheter) 2948 / 2948 2107 / 2107 105 / 105 Gastric Drainage 675 / 675 950 / 950 Left Nare 675 / 675 950 / 950 Wound Drainage 128 / 128 157 / 157 Abdomen 20 / 20 70 / 70 Left Anterior Medial Abdomen 15 / 15 12 / 12 Left Lower Abdomen 10 / 10 10 / 10 Left Lower Lateral Abdomen 10 10 10 Right Anterior Medial Abdomen 55 / 55 35 / 35 Right Lower Lateral Abdomen 18 18 20 / 20 Other: Urine Appearance Clear Clear Clear Urine Color Yellow Light Meliza Light Meliza Stool Color Brown Brown Green Green Stool Consistency Liquid Liquid Drain Type Left Anterior Medial Abdomen Bulb [place] Bulb [place] Left Lower Abdomen Bulb [place] Bulb [place] Left Lower Lateral Abdomen Bulb [place] Bulb [place] Right Anterior Medial Abdomen Bulb [place] Bulb [place] Right Lower Lateral Abdomen Bulb [place] Bulb [place] - Consult Information TPN CONSULT: Day 11 5'9" 64 kg male patient admitted with toxic megacolon-ischemic colitis. Patient had a near total colectomy and is currently on TPN. The current TPN is AA 4.25%/Dextrose 25% 2 liter bag. Rate is 100 ml/hr. Patient is also receiving 20% Fat Emulsion 250 ML. The patient is receiving 2040 KCAL from the Dextrose and 500 KCAL from the Lipids = 2540 total non- protein KCAL. Electrolytes have been adjusted. The TPN is a 2 liter bag and at 100 ml/hr the pt is getting 2.4 liters/24 hrs. Electrolytes are all within normal limits. The Calcium has increased to 8.1 which is within normal limits as the albumin is low at 2.5. Will continue same concentration of electrolytes in today's bag. Pharmacy will continue to monitor the electrolytes and adjust as needed. Thank you. Vidya Munoz, PharmD
--- NOTE | 2018-03-06 09:29 | Progress Note ---
DATE OF VISIT 03/04/2018 REASON FOR VISIT Postoperative followup, covering for Dr. Gomez. SUBJECTIVE Arslan's mother says that he was more alert and was asking for people by name today. Pain control has still been difficult for the nursing staff. His drain outputs have decreased some from yesterday's totals. OBJECTIVE T-max last evening was 101.7. Pulse 138. GENERAL: The patient is awake and alert. He appears to be in less distress today. ABDOMEN: Soft, appropriately tender. Drains have more serous output today. His ostomy is well-perfused. LABORATORY DATA White blood cell count 21.1. IMPRESSION 1. Postop day number 05/08 status post exploratory laparotomy with a Mendoza's procedure for feculent peritonitis due to perforation with additional drain placement due to multiple areas of intraabdominal abscesses. 2. Autism spectrum. PLAN 1. Continue IV antibiotics and antifungals. 2. Continue n.p.o. status. Given the significant dilation of the bowel at the time of his procedure and the intraoperative process, I think he will have a prolonged ileus. 3. Continue NG tube to suction for now until ostomy output increases. 4. Continue to work on pain control. He was started on a fentanyl patch today by the hospitalist team. SYLVAIN
[2018-03-06] MEDS: SALINE FLUSH 10ml SYRINGE IVF PRN (09:52)
--- NOTE | 2018-03-06 10:17 | Progress Note ---
DATE OF VISIT 03/03/2018 REASON FOR VISIT Postoperative followup, covering for Dr. Gomez. SUBJECTIVE Arslan has appeared uncomfortable. The nurse has been trying to treat him with some IV narcotics. He has been reluctant to have oral care or take any ice chips by anyone other than his mother. OBJECTIVE VITALS: Afebrile for the last 24 hours. He has remained tachycardic with heart rate in the 130s to 150s. GENERAL: The patient is awake and alert. He is in mild distress. ABDOMEN: Soft, appropriately tender. His wound VAC remains in position with good seal. Drains have serosanguineous output. His colostomy is perfused. IMPRESSION 1. Postop day number 8/2 status post exploratory laparotomy with Mendoza's procedure for perforation with feculent peritonitis and re-exploration for drainage of intraabdominal abscesses. 2. Autism spectrum. PLAN 1. Continue IV antibiotics and antifungals. 2. Continue TPN. 3. Continue to try to work on pain control and see if this will help with his tachycardia. SYLVAIN
--- NOTE | 2018-03-06 10:23 | Progress Note ---
DATE OF VISIT 03/02/2018 REASON FOR VISIT Postoperative followup, covering for Dr. Gomez. SUBJECTIVE Arslan had his wound VAC placed this morning. He has been fairly stable since his procedure yesterday. OBJECTIVE VITAL SIGNS: The patient remains tachycardic in the 120s to 140s. His lowest heart rate was the 110s earlier today. GENERAL: The patient is awake and alert. He does appear to be in some mild distress. ABDOMEN: Soft, appropriately tender. His wound VAC is in place and has a good seal. Colostomy is well perfused. LABORATORY DATA White blood cell count this morning was 25.0. IMPRESSION 1. Postop day #7/. Status post exploratory laparotomy with Mendoza's procedure and reexploration with additional drain placement. 2. Multiple intraabdominal abscesses - status post additional drainage yesterday. 3. Autism spectrum. PLAN 1. Continue IV antibiotics and antifungals. 2. Continue n.p.o. with NG tube. 3. Continue TPN for nutrition. 4. I did re-explain to the family that Arslan would have a significant recovery ahead of him given the ongoing intraabdominal problems. SYLVAIN
--- NOTE | 2018-03-06 10:50 | Progress Note ---
- Date 03/06/18 Subjective: F/U: Toxic Megacolon, Perforation of splenic flexure, Multiple areas of intraabdominal abscess formation Resting in bed, alert and will follow simple commands. Nursing reports was up with therapy. Taking sips of Sprite for oral comfort. Ab with discomfort. Objective Vital signs: Temperature 100.8 F H 03/06/18 04:00 Pulse Rate 133 H 03/06/18 09:00 Respiratory Rate 26 H 03/06/18 08:15 Blood Pressure 106/71 03/06/18 07:00 Pulse Oximetry 97 03/06/18 07:00 Rhythm: Sinus Tachycardia Height/Weight/BMI: Height 1.75 m Weight 62 kg Body Mass Index 22.5 - Constitutional Present: well nourished, well developed, thin, cooperative. Absent: combative - Routine HEENT Exam Head: Present: normocephalic, atraumatic Eye: Present: EOMI, PERRL ENT: Present: mucous membranes dry - Routine Respiratory Exam Present: decreased breath sounds (Basilar blunting). Absent: respiratory distress - Routine Cardiovascular Exam Present: tachycardia (Regular) - Routine Abdominal Exam Present: non distended, guarding. Absent: normoactive bowel sounds (decreased) - Routine Extremities Exam Present: pulses intact. Absent: cyanosis, clubbing, edema Comments: SCD in place - Routine Skin Exam Present: dry, warm, wounds (Wound vac to abdomen) - Routine Neurological Exam Present: alert, moving all extremities, vision grossly intact, hearing grossly intact - Routine Psychiatric Exam Present: cooperative. Absent: agitated, paranoid Results - Labs CBC & Chem 7: 03/06/18 04:04 03/06/18 04:04 Microbiology Results: Microbiology 03/01/18 18:56 Abdomen, Left Upper Gram Stain - Final 03/01/18 18:56 Abdomen, Left Upper Surgical Culture - Final Escherichia coli Anaerobic Gram-Negative Bhanu Anaerobic Gram-Positive Cocci 02/23/18 20:15 Peripheral/Iv Start Gram Stain - Final Not performed 02/23/18 20:15 Peripheral/Iv Start Blood Culture - Final No Growth After 5 Days 02/23/18 20:05 Peripheral/Iv Start Gram Stain - Final Not performed 02/23/18 20:05 Peripheral/Iv Start Blood Culture - Final No Growth After 5 Days 02/20/18 20:07 Peripheral/Iv Start Blood Culture - Final No Growth After 5 Days Assessment and Plan (1) Megacolon Problem details: Toxic megacolon Current visit: Yes Status: Acute (2) Perforation of colon Problem details: Perforation of the splenic flexure due to ischemic changes Current visit: Yes Status: Acute Assessment and Plan: Assessment 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 Autism Dental problems Hypophosphatemia Hypokalemia (Not POA) XIOMARA LLL atelectasis Acute kidney injury with oliguria-postop Hyperkalemia (Not POA) Thrombocytosis Plan Temp elevations to 100.5 - 101.7. Persistent tachycardia in 130s. BP 100's. WBC with gradual trend down to 17.9 - was 25.0 on 03/02. Platelets trending up to 971 (was 407 on 03/02). Electrolytes and renal status stable - on TPN. Will continue with Zosyn and Diflucan for antimicrobial coverage. Continue with wound vac and drains. CT scan of ab/pelvis to exclude occult abscess formation. Encourage continued activities. Recheck CBC, BMP, Phos, and INR in am secondary to sepsis and TPN/medication use. Case discussed with CCU nursing and Dr Gomez. Time spent with patient care 25 minutes. DVT Prophylaxis: SCD's, Lovenox GI Prophylaxis: Protonix Resuscitation Status: Full Code - Time spent with patient Time with patient PN: 25 minutes - Physician Narrative Physician: Daniel Stevens MD Narrative: Date: 03/06/18 Time: 1046 Hospital Course Summary Disclaimer: The visit summary below is not to be considered part of the above Progress Note. Hospital Course: 02/20/18 Admit, CCU. Bowel rest - NPO. Cont IVF - 1/2 NS with Na of 144. Consult Dr. Gomez for mgt. Sx management with Protonix, morphine, Zofran. Cont IVF for tachycardia; sepsis. Repeat lactate. Cont Zosyn for bowel coverage. Follow BC results. Iron w/u in progress. Type & screen ordered. D/W with Dr. Stevens and RN. 02/22/18 Gastrografin enema 02/21 with copious stool resulting. However, still with stool in rectal vault. Deferring further management to surgery team, await recs. Cont Zosyn given bandemia, tachycardia and concern for toxic megacolon. 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 Clinically deteriorating. Going for surgery for perforation/free air. Near total colectomy performed. Became hypotensive, tachycardic with rates into 180s. Aggressively fluid resuscitated. 02/24/18 UOP, tachycardia improved. Cont abx. Initiate TPN. Monitoring for return of bowel fxn. 02/25/18 Given Kphos Transfused another 1U PRBCs. Stopped LR. Surgery to trial clamping NGT. Intermittently febrile- rectal Tylenol. 02/26/18 Did have fever overnight. Has tolerated NGT clamping. No O2 requirements. No N/V /CP. Hasn't been able to perform IS very well. 02/27/18 Remains on TPN, tolerating limited oral liquids earlier today however resultant emesis has required resumption of NG suction. Good output per ostomy; 2400 mL output reported during prior 24-hour period. Hemoglobin drifting down, ongoing hypokalemia-post being reassessed this afternoon. Potassium increased and TPN but may require supplemental boluses due to potassium lost in stool and emesis. Persistent tachycardia-may require additional blood transfusion. Remains on Zosyn for peritonitis; chest x-ray with pleural effusion but no evidence of pneumonia. May require repeat CT abdomen/pelvis to exclude intra-abdominal abscess. 02/28/18 Remains on TPN, electrolytes stable. Good urine output per ostomy but continues to have high volume output per NG. Output significantly higher than input, weight down, ongoing tachycardia--> 1 L fluid bolus tonight. Anticipate ongoing need for fluids to match fluid losses. CT abdomen/pelvis discussed with radiology this evening and subsequently with Dr. Hills; will review further with radiology tomorrow to determine if drainage can be performed of the subphrenic abscess percutaneously or if surgical drainage/washout will be needed due to presence of multiple smaller fluid collections suggestive of early abscesses. Dr. Hills notified patient 's parents of findings. Hemoglobin continues to drift down very slowly, may be slightly hemoconcentrated at present. Type and screen in a.m. Anticipating transfusion in the next 1-2 days. 03/01/18 OP Day - Exploratory laparotomy, drainage of multiple intraabdominal abscesses, fecal disimpaction, intraoperative flexible proctoscopy. Subdiaphragmatic abscess and left upper quadrant-discussed with radiology and message subsequently relayed to Dr. Hills regarding potential risk of percutaneous drainage. Patient tenably scheduled to return to the operating room later today. Several very small extensive gas in the pelvis without clear room enhancement to suggest abscess, may simply be postoperative change. Remains on TPN, electrolytes stable. Good urine output per ostomy but continues to have high volume output per NG. Output significantly higher than input, weight down, ongoing tachycardia--> 1 L fluid bolus this a.m. and continue normal saline at 100 mL per hour. 2 units PRBCs matched preoperatively; one being given prior to surgery for hemoglobin 7.4. 03/02/18 s/p ex lap with placement of drains by Dr. Hills. Febrile before surgery. WBC up post-op. Wound cx growing GPC, GNR, GPR. Continue Zosyn Remains on TPN, reduce K+. Good urine output. Output per NG down. Continued tachycardia. Continue IVF and treat pain. Output significantly higher than input, weight down, ongoing tachycardia--> 1 L fluid bolus this a.m. and continue normal saline at 100 mL per hour. Anticipate ongoing need for fluids to match fluid losses. 1 unit PRBCs given 03/01. Total of 4 units transfused Ferrlecit dose given 02/25, plan to repeat dose 03/04. Discussed with nursing who provide supplemental history; mother updated. Prognosis guarded. 03/03/18 s/p ex lap 03/01 with placement of drains by Dr. Hills. Afebrile and WBC down. Wound cx growing GPC, GNR, GPR. Continue Zosyn and fluconazole Continue TPN, K+ improved. Good urine output. Output per NG and ostomy down since 03/01 ex lap. Continued tachycardia. Continue IVF and treat pain. ? whether anxious. Trial of Ativan Anticipate ongoing need for fluids to match fluid losses. 1 unit PRBCs given 03/01. Total of 4 units transfused Ferrlecit dose given 02/25, plan to repeat dose 03/04. Discussed with nursing who provide supplemental history; mother updated. Prognosis guarded. 03/04/18 s/p ex lap 03/01 with placement of drains by Dr. Hills. Fever and WBC up slightly. Wound cx growing e coli, sensitive to Zosyn. Fluconazole. Check CXR Continue TPN, K+ improved. Good urine output. Output per NG and ostomy down since 03/01 ex lap. Continued tachycardia. Hold LR as patient with trace edema. Start fentanyl patch for pain. He got 28 mg iv morphine yesterday. Starting fentanyl at 12mcg d /t possible interaction with Fluconazole. 1 unit PRBCs given 03/01. Total of 4 units transfused Ferrlicit dose given 02/25, plan to repeat dose 03/04. Discussed with nursing who provide supplemental history. Encourage activity. Prognosis guarded 03/05/18 s/p ex lap 03/01 with placement of drains by Dr. Hills. Wound VAC. Fever. WBC down slightly. Wound cx growing e coli, sensitive to Zosyn. Fluconazole. Check CXR. Continue TPN, decrease Mg. Good urine output. Output per NG up yesterday. Continued tachycardia. Holding LR as patient with trace edema. Appears more comfortable with fentanyl patch for pain. Platelets trending up. Check inflammatory markers. If continued fever, consider repeating CT Encourage activity. 03/06/18 Temp elevations to 100.5 - 101.7. Persistent tachycardia in 130s. BP 100's. WBC with gradual trend down to 17.9 - was 25.0 on 03/02. Platelets trending up to 971 (was 407 on 03/02). Electrolytes and renal status stable - on TPN. Will continue with Zosyn and Diflucan for antimicrobial coverage. Continue with wound vac and drains. CT scan of ab/pelvis to exclude occult abscess formation. Encourage continued activities.
--- NOTE | 2018-03-06 10:57 | Progress Note ---
DATE OF VISIT 03/05/2018 REASON FOR VISIT Postoperative followup, covering for Dr. Gomez. SUBJECTIVE Arslan's nurse reports that he has been asking more for clear liquid items. He has tolerated these well but his NG remains to suction. He has had more colostomy output today and the nurse has emptied his colostomy bag twice. Drain #4 which was placed in the left subdiaphragmatic region, had become more purulent after being more serous yesterday. OBJECTIVE VITALS: T-max 100.9 last evening, pulse in the 140s. GENERAL: The patient is awake and alert. He is lying in bed in no acute distress. ABDOMEN: Soft, appropriately tender. His wound VAC remains in place with a good seal. Drains have serous output but drain #4 does have more purulent appearing output. LABORATORY DATA White blood cell count 19.6, platelet count 778. IMPRESSION 1. Postop day number 06/07 status post exploratory laparotomy and Mendoza's procedure due to perforation and feculent peritonitis/exploratory laparotomy for evacuation of intraabdominal abscesses. 2. Autism spectrum. PLAN 1. Continue IV antibiotics and antifungals 2. Given the significant inflammation of the abdomen, I am expecting a prolonged postoperative ileus. Until ostomy output increases more, I will leave his NG tube to suction. 3. Continue TPN for nutrition. 4. Dr. Gomez will be returning tomorrow and can resume care of the patient. 5. Continue wound VAC for management of his surgical wound. SYLVAIN
--- NOTE | 2018-03-06 11:04 | Wound Care Progress Note ---
Wound Center Progress Note: Pt seen for wound care followup/wound vac dressing change. Pt pre-medicated. Seen with Yanna LEACH. Pt resting in bed, mother at bedside. Colostomy pouching system intact without leaks, not changed at this time. Wound vac dressing removed. Surgical incision: beefy red non-granulating tissue, small sanguineous active drainage during wound vac dressing change. One small round area of slough near mid point of incision. Surgical incision measures 33.9 (L) x 2.8 (W ) x 1.8 (D). Periwound: WDNL. Skin prepped with skin drape, black foam placed into wound bed, drape applied over foam. Black foam collapsed without leaks, vac is running at 125 mm Hg continuous pressure. Canister has about 100 mL serosanguineous drainage. Will continue ostomy education PRN.
[2018-03-06] MEDS: SODIUM ACETATE IV SCH (12:12)
[2018-03-06] MEDS: POTASSIUM ACETATE IV SCH (12:12)
[2018-03-06] MEDS: [UNRECOGNIZED DRUG - OTHER] IV SCH (12:12)
[2018-03-06] MEDS: SODIUM CHLORIDE IV SCH (12:12)
[2018-03-06] MEDS: INSULIN ASPART 100unit/ml INJECTION SQ PRN (12:27)
[2018-03-06] MEDS ORDERED: SALINE FLUSH 10ml SYRINGE ONE (12:29)
[2018-03-06] MEDS ORDERED: IOHEXOL 300mg/ml 75ml INJECTION ONE (12:29)
--- NOTE | 2018-03-06 13:41 | CT Scan Report ---
Indication: Temp elevation, multiple drains - ?abscess PROCEDURE: CT abdomen pelvis w con: Encounter: Initial Comparison: CT abdomen and pelvis dated February 28, 2018. Technique: Axial CT images were performed through the abdomen and pelvis after the administration of intravenous contrast. Coronal and sagittal two-dimensional reformats. Automated Exposure Control and Iterative Reconstruction dose reducing techniques were utilized. Contrast: Omnipaque 300 73 mL Findings: Right lung base is clear. Moderate left pleural effusion. Left lower lobe atelectasis. Interval placement of a new subdiaphragmatic abscess drain on the left with interval decrease in size of the subdiaphragmatic abscess. This now measures 7.7 x 2.4 cm on coronal image #28 compared to 8.3 x 3.8 cm when measured in a similar fashion on the comparison. Surgical drain extending along of the right liver margin with no significant surrounding fluid along the course of this drain. The liver enhances normally. No bile duct dilatation. The gallbladder is grossly normal. The spleen is normal. The pancreas, adrenal glands and kidneys are stable. Nasogastric tube in place terminating in the body of the stomach. Additional left abdominal abscess drain is seen traversing a pocket of fluid and gas adjacent to the proximal jejunum best seen on axial image #29 measuring 6.9 x 3.3 cm in size. This drain appears to have been repositioned since the prior study. There is also a 3 cm wide pocket of fluid and gas along the course of the left paracolic gutter abscess drain. Additional right-sided pelvic abscess drain is in place with no significant fluid collections seen along the course of the drain. The tip terminates in the left anterior pelvis. Mcdermott catheter within a thick-walled gas containing bladder. Moderate stool present. Prior subtotal colectomy. The amount of free intraperitoneal air has diminished since the prior study with a few small foci remaining near the anterior inferior aspect of the spleen. Dilated small bowel loops persist up to 4.6 cm in diameter. Right lower quadrant ostomy noted. Evaluation of the bowel is somewhat limited without oral contrast. There does appear to be gradual transition from dilated proximal to mid small bowel to decompressed distal bowel in the left lower quadrant. Two small pockets of fluid and gas in the anterior pelvis just above the bladder best seen on sagittal image #34 measuring 2.5 to 3.5 cm in size. There is also a pocket of fluid more superiorly in the omental area seen on axial image #42 measuring 4.3 x 3.7 cm in size anterior to a loop of bowel. This fluid collection does not show a thick rind or rim enhancement. Bone windows show no acute findings. Impression: 1. New and repositioned abscess drains with decreasing size of the left upper quadrant subdiaphragmatic abscess. Residual areas of abscess along the two other left-sided abscess drains. 2. There is no significant fluid seen along the course of the right perihepatic drain or the right pelvic drain. 3. Small fluid and gas collections in the suprapubic region and omental area. These collections do not show a thick rind or peripheral rim enhancement currently, but may represent developing areas of abscess. 4. Increasing small bowel distention may represent ongoing ileus although a partial obstruction cannot be entirely excluded. Recommend correlation with patient's ostomy output. 5. Left pleural effusion. .
[2018-03-06] MEDS: FAT EMULSION 20% 250 ML IV SCH (15:34)
--- NOTE | 2018-03-06 19:07 | Progress Note ---
DATE OF SERVICE 03/06/2018 FINDINGS Cosmo was seen earlier today on rounds. He did not appear to be in acute distress. He was awake but nonverbal. PHYSICAL EXAM VITAL SIGNS: T-max 100.8. He remains tachycardic with his last pulse being recorded at 155. Blood pressure 111/66. CHEST: Clear to auscultation bilaterally. HEART: Regular rate and rhythm. Normal S1 and S2 without gallops, murmurs or clicks. ABDOMEN: The patient has a wound VAC present overlying his midline incision. Palpation of the abdomen reveals it to be soft. His abdomen is not "board-like " in nature as previously noted. There is some stool and air present within his colostomy within the right lower quadrant. LABORATORY/RADIOGRAPHIC EVALUATION The patient had a CBC today and remains to have a leukocytosis with a white count of 17.9. He has a component of thrombocytosis with a platelet count of 971. He continues with ongoing bandemia of 10%. CMP obtained. CRP markedly elevated at 172. ASSESSMENT 32-year-old gentleman with history for colonic perforation with resultant gross fecal peritonitis. Status post exploratory laparotomy with segmental colonic resection and creation of end colostomy and Mendoza's pouch. Development of postoperative intraabdominal abscess requiring repeat exploratory laparotomy, lysis of adhesions, drainage of multiple intraabdominal abscesses. The patient remains critically ill. PLAN Given his ongoing fever, tachycardia, leukocytosis and bandemia it is my recommendation that we go ahead and repeat a CT scan today. CT scan was repeated. CT scan reveals evidence for a small fluid and gas collection in a suprapubic region and omental area. There was still a component of some residual areas of abscess along the left-sided abdominal drains as well. Overall, however, there was not a significant large abscess identified. There was a component of some increasing small bowel distention possibly representing an ileus although a "partial obstruction could not be completely excluded." At this point in time I feel the patient's prognosis is still somewhat guarded. Recommend continuing with ongoing broad-spectrum antibiotics and hyperalimentation. Will continue to follow closely. SYLVAIN
[2018-03-06] MEDS ORDERED: FALL RISK - PHARMACY CONSULT MC ONE (22:14)
[2018-03-06] MEDS: NS FLUSH BAG 500ml IV PRN (23:14)
[2018-03-07] MEDS: SALINE FLUSH 10ml SYRINGE IVF PRN ×2 (04:33→20:17)
[2018-03-07] MEDS: PIPERACILLIN/TAZOBACTAM 3.375 GM in NS 100 ML IV SCH ×4 (04:59→23:47)
[2018-03-07] MEDS: ALBUTEROL/IPRATROPIUM 2.5mg-0.5mg/3ml NEB IPPB SCH ×3 (06:35→21:12)
[2018-03-07] MEDS: INSULIN ASPART 100unit/ml INJECTION SQ PRN (06:43)
[2018-03-07] MEDS: FLUCONAZOLE PB 100 MG/50 ML BAG IV SCH (08:15)
--- NOTE | 2018-03-07 09:10 | General Surgery Progress Note ---
Subjective Narrative: He is having some liquid tool in colostomy bag, no stool or blood per rectum. Still intermittently febrile, 101.5 during the night. He was NT suctioned about 6:30am. During this am visit, nursing note BRB from right nare, running down his face and pooling in the clavicular crease. Dr. Newby graciously agreed to eval and treat, see his note. Will HOLD Lovenox today. Arslan remains tachy usually in the 130's. SBP stable remaining low 100's-110's. Light palpation does not seem to produce discomfort. He takes sips of Sprite without difficulty. - Vital Signs Last Vital Signs Temp 99.7 F 03/07/18 04:00 Pulse 136 H 03/07/18 07:00 Resp 18 03/07/18 07:00 BP 109/63 03/07/18 07:00 Pulse Ox 97 03/07/18 07:00 - Laboratory Result Diagrams: 03/07/18 04:45 03/07/18 04:45 Laboratory Tests 03/03/18 03/04/18 03/05/18 04:06 04:18 04:37 Plt Count 488 H 676 H D 778 H* INR 03/06/18 03/07/18 03/07/18 04:04 04:45 04:45 Plt Count 971 H* 961 H* INR 1.44 H - Radiology CT abd.pelvix 03/06 Impression: 1. New and repositioned abscess drains with decreasing size of the left upper quadrant subdiaphragmatic abscess. Residual areas of abscess along the two other left-sided abscess drains. 2. There is no significant fluid seen along the course of the right perihepatic drain or the right pelvic drain. 3. Small fluid and gas collections in the suprapubic region and omental area. These collections do not show a thick rind or peripheral rim enhancement currently, but may represent developing areas of abscess. 4. Increasing small bowel distention may represent ongoing ileus although a partial obstruction cannot be entirely excluded. Recommend correlation with patient's ostomy output. 5. Left pleural effusion. - Abnormal Exam Respiratory: other (shallow) Cardiovascular: other (sinus tachy in the 130's) Additional Abnormal Findings: Bright red blood from right nare and also intermittently small amount coming out the NG tube. Enough to run down his face and pool in the clavicular crease. - Normal Exam General: awake, alert Respiratory: equal bilaterally, no labored breathing Abdominal: soft, appropriately tender, incision(s) (midline wound vac in tact, foam nicely compressed. CL[place] drains with serosangineous fuid.), other (colostomy nice and pink, protruding, with liquid light brown stool in bag.) Psychiatric: other (limit cognitive ability, ) Assessment and Plan (1) Impaction of colon Current Visit: Yes Status: Acute (2) Megacolon Current Visit: Yes Status: Acute Problem details: Toxic megacolon (3) Mild epistaxis Current Visit: Yes Status: Acute (4) Postoperative intra-abdominal abscess Current Visit: Yes Status: Acute Qualifiers: Encounter type: initial encounter Qualified Code(s): T81.4XXA - Infection following a procedure, initial encounter; K65.1 - Peritoneal abscess (5) Perforated sigmoid colon Current Visit: Yes Status: Acute (6) Colostomy in place Current Visit: Yes Status: Chronic (7) 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 WBC 14.3 (17.9 yesterday) continue ABX. Platelets still quite elevated 961 (971 yesterday) ?drug induced? Ileus may be resolving, there is fair amount of stool in colostomy bag. Epistaxis this morning, Dr Newby graciously evaluated, it had about stopped when he got here, and treated with coagulant powder. Thank you Dr. Newby. INR 1.44, with Epistaxis, will HOLD Lovenox today. Continue TPN and close monitoring. Tachy still in the 130's, sinus. Fever, pain, stress, infection may all be contributing. Thank you hospitalist your care with this complicated young man. Hospital Course Summary Disclaimer: The visit summary below is not to be considered part of the above Progress Note. Hospital Course: 02/20/18 Admit, CCU. Bowel rest - NPO. Cont IVF - 1/2 NS with Na of 144. Consult Dr. Gomez for mgt. Sx management with Protonix, morphine, Zofran. Cont IVF for tachycardia; sepsis. Repeat lactate. Cont Zosyn for bowel coverage. Follow BC results. Iron w/u in progress. Type & screen ordered. D/W with Dr. Stevens and RN. 02/22/18 Gastrografin enema 02/21 with copious stool resulting. However, still with stool in rectal vault. Deferring further management to surgery team, await recs. Cont Zosyn given bandemia, tachycardia and concern for toxic megacolon. 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 Clinically deteriorating. Going for surgery for perforation/free air. Near total colectomy performed. Became hypotensive, tachycardic with rates into 180s. Aggressively fluid resuscitated. 02/24/18 UOP, tachycardia improved. Cont abx. Initiate TPN. Monitoring for return of bowel fxn. 02/25/18 Given Kphos Transfused another 1U PRBCs. Stopped LR. Surgery to trial clamping NGT. Intermittently febrile- rectal Tylenol. 02/26/18 Did have fever overnight. Has tolerated NGT clamping. No O2 requirements. No N/V /CP. Hasn't been able to perform IS very well. 02/27/18 Remains on TPN, tolerating limited oral liquids earlier today however resultant emesis has required resumption of NG suction. Good output per ostomy; 2400 mL output reported during prior 24-hour period. Hemoglobin drifting down, ongoing hypokalemia-post being reassessed this afternoon. Potassium increased and TPN but may require supplemental boluses due to potassium lost in stool and emesis. Persistent tachycardia-may require additional blood transfusion. Remains on Zosyn for peritonitis; chest x-ray with pleural effusion but no evidence of pneumonia. May require repeat CT abdomen/pelvis to exclude intra-abdominal abscess. 02/28/18 Remains on TPN, electrolytes stable. Good urine output per ostomy but continues to have high volume output per NG. Output significantly higher than input, weight down, ongoing tachycardia--> 1 L fluid bolus tonight. Anticipate ongoing need for fluids to match fluid losses. CT abdomen/pelvis discussed with radiology this evening and subsequently with Dr. Hills; will review further with radiology tomorrow to determine if drainage can be performed of the subphrenic abscess percutaneously or if surgical drainage/washout will be needed due to presence of multiple smaller fluid collections suggestive of early abscesses. Dr. Hills notified patient 's parents of findings. Hemoglobin continues to drift down very slowly, may be slightly hemoconcentrated at present. Type and screen in a.m. Anticipating transfusion in the next 1-2 days. 03/01/18 OP Day - Exploratory laparotomy, drainage of multiple intraabdominal abscesses, fecal disimpaction, intraoperative flexible proctoscopy. Subdiaphragmatic abscess and left upper quadrant-discussed with radiology and message subsequently relayed to Dr. Hills regarding potential risk of percutaneous drainage. Patient tenably scheduled to return to the operating room later today. Several very small extensive gas in the pelvis without clear room enhancement to suggest abscess, may simply be postoperative change. Remains on TPN, electrolytes stable. Good urine output per ostomy but continues to have high volume output per NG. Output significantly higher than input, weight down, ongoing tachycardia--> 1 L fluid bolus this a.m. and continue normal saline at 100 mL per hour. 2 units PRBCs matched preoperatively; one being given prior to surgery for hemoglobin 7.4. 03/02/18 s/p ex lap with placement of drains by Dr. Hills. Febrile before surgery. WBC up post-op. Wound cx growing GPC, GNR, GPR. Continue Zosyn Remains on TPN, reduce K+. Good urine output. Output per NG down. Continued tachycardia. Continue IVF and treat pain. Output significantly higher than input, weight down, ongoing tachycardia--> 1 L fluid bolus this a.m. and continue normal saline at 100 mL per hour. Anticipate ongoing need for fluids to match fluid losses. 1 unit PRBCs given 03/01. Total of 4 units transfused Ferrlecit dose given 02/25, plan to repeat dose 03/04. Discussed with nursing who provide supplemental history; mother updated. Prognosis guarded. 03/03/18 s/p ex lap 03/01 with placement of drains by Dr. Hills. Afebrile and WBC down. Wound cx growing GPC, GNR, GPR. Continue Zosyn and fluconazole Continue TPN, K+ improved. Good urine output. Output per NG and ostomy down since 03/01 ex lap. Continued tachycardia. Continue IVF and treat pain. ? whether anxious. Trial of Ativan Anticipate ongoing need for fluids to match fluid losses. 1 unit PRBCs given 03/01. Total of 4 units transfused Ferrlecit dose given 02/25, plan to repeat dose 03/04. Discussed with nursing who provide supplemental history; mother updated. Prognosis guarded. 03/04/18 s/p ex lap 03/01 with placement of drains by Dr. Hills. Fever and WBC up slightly. Wound cx growing e coli, sensitive to Zosyn. Fluconazole. Check CXR Continue TPN, K+ improved. Good urine output. Output per NG and ostomy down since 03/01 ex lap. Continued tachycardia. Hold LR as patient with trace edema. Start fentanyl patch for pain. He got 28 mg iv morphine yesterday. Starting fentanyl at 12mcg d /t possible interaction with Fluconazole. 1 unit PRBCs given 03/01. Total of 4 units transfused Ferrlicit dose given 02/25, plan to repeat dose 03/04. Discussed with nursing who provide supplemental history. Encourage activity. Prognosis guarded 03/05/18 s/p ex lap 03/01 with placement of drains by Dr. Hills. Wound VAC. Fever. WBC down slightly. Wound cx growing e coli, sensitive to Zosyn. Fluconazole. Check CXR. Continue TPN, decrease Mg. Good urine output. Output per NG up yesterday. Continued tachycardia. Holding LR as patient with trace edema. Appears more comfortable with fentanyl patch for pain. Platelets trending up. Check inflammatory markers. If continued fever, consider repeating CT Encourage activity. 03/06/18 Temp elevations to 100.5 - 101.7. Persistent tachycardia in 130s. BP 100's. WBC with gradual trend down to 17.9 - was 25.0 on 03/02. Platelets trending up to 971 (was 407 on 03/02). Electrolytes and renal status stable - on TPN. Will continue with Zosyn and Diflucan for antimicrobial coverage. Continue with wound vac and drains. CT scan of ab/pelvis to exclude occult abscess formation. Encourage continued activities.
[2018-03-07] MEDS: PANTOPRAZOLE 40 MG INJECTION IVP SCH (09:17)
--- NOTE | 2018-03-07 10:14 | Progress Note ---
- Date 03/07/18 Subjective: F/U: Toxic Megacolon, Perforation of splenic flexure, Multiple areas of intraabdominal abscess formation Sitting up in chair-up for about 1 hour; does ask to go back to bed. Nursing reports he slept well though night. Pain controlled. Taking sips of sprite. Having output through ostomy. Breathing feels okay. Objective Vital signs: Temperature 99.7 F 03/07/18 04:00 Pulse Rate 136 H 03/07/18 07:00 Respiratory Rate 18 03/07/18 07:00 Blood Pressure 109/63 03/07/18 07:00 Pulse Oximetry 97 03/07/18 07:00 Rhythm: Sinus Tachycardia Height/Weight/BMI: Height 1.75 m Weight 62 kg Body Mass Index 22.5 - Constitutional Present: well nourished, well developed, thin, cooperative. Absent: combative, agitated, somnolent - Routine HEENT Exam Head: Present: normocephalic, atraumatic Eye: Present: EOMI, PERRL ENT: Present: mucous membranes moist - Routine Respiratory Exam Present: decreased breath sounds (Basilar blunting), diminished air movement. Absent: respiratory distress - Routine Cardiovascular Exam Present: tachycardia (Regular). Absent: no murmur - Routine Abdominal Exam Present: non distended. Absent: normoactive bowel sounds (Decreased) - Routine Extremities Exam Present: no edema, pulses intact. Absent: cyanosis, clubbing - Routine Musculoskeletal Exam Musculoskeletal: Present: no clubbing or cyanosis - Routine Skin Exam Present: dry, warm - Routine Neurological Exam Present: alert, CN II-XII intact, moving all extremities, vision grossly intact , hearing grossly intact - Routine Psychiatric Exam Present: cooperative. Absent: anxious, agitated Results - Labs CBC & Chem 7: 03/07/18 04:45 03/07/18 04:45 Microbiology Results: Microbiology 03/01/18 18:56 Abdomen, Left Upper Gram Stain - Final 03/01/18 18:56 Abdomen, Left Upper Surgical Culture - Final Escherichia coli Anaerobic Gram-Negative Bhanu Anaerobic Gram-Positive Cocci 02/23/18 20:15 Peripheral/Iv Start Gram Stain - Final Not performed 02/23/18 20:15 Peripheral/Iv Start Blood Culture - Final No Growth After 5 Days 02/23/18 20:05 Peripheral/Iv Start Gram Stain - Final Not performed 02/23/18 20:05 Peripheral/Iv Start Blood Culture - Final No Growth After 5 Days 02/20/18 20:07 Peripheral/Iv Start Blood Culture - Final No Growth After 5 Days Assessment and Plan (1) Megacolon Problem details: Toxic megacolon Current visit: Yes Status: Acute (2) Perforation of colon Problem details: Perforation of the splenic flexure due to ischemic changes Current visit: Yes Status: Acute Assessment and Plan: Assessment Toxic megacolon Perforated viscus s/p near total colectomy with ostomy placement Feculent peritonitis Subdiaphragmatic abscess, left upper quadrant Tachycardia Severe constipation Severe sepsis Fever Severe iron deficiency anemia Autism Dental problems Hypophosphatemia Hypokalemia (Not POA) XIOMARA LLL atelectasis Acute kidney injury with oliguria-postop Hyperkalemia (Not POA) Thrombocytosis (Not POA) Plan WBC with gradual trend down to 17.9 - was 17.9 on yesterday. Platelets elevated at 961 (was 971 yesterday). Hemoglobin persistently low at 7.6; with continued tachycardia will give 1 unit of pRBC. Electrolytes and renal status stable - on TPN. Will continue with Zosyn and Diflucan for antimicrobial coverage. Continue with wound vac and drains. CT scan of ab/pelvis showed possible new abscess formation in the suprapubic region and omental area. Encourage continued activities. Recheck CBC, BMP, Phos, and Mg in am secondary to sepsis and TPN/medication use. Case discussed with CCU nursing. Time spent with patient care 25 minutes. DVT Prophylaxis: SCD's, Lovenox Resuscitation Status: Full Code - Time spent with patient Time with patient PN: 25 minutes - Physician Narrative Physician: Daniel Stevens MD Narrative: Date: 03/07/18 Time: 1011 Hospital Course Summary Disclaimer: The visit summary below is not to be considered part of the above Progress Note. Hospital Course: 02/20/18 Admit, CCU. Bowel rest - NPO. Cont IVF - 1/2 NS with Na of 144. Consult Dr. Gomez for mgt. Sx management with Protonix, morphine, Zofran. Cont IVF for tachycardia; sepsis. Repeat lactate. Cont Zosyn for bowel coverage. Follow BC results. Iron w/u in progress. Type & screen ordered. D/W with Dr. Stevens and RN. 02/22/18 Gastrografin enema 02/21 with copious stool resulting. However, still with stool in rectal vault. Deferring further management to surgery team, await recs. Cont Zosyn given bandemia, tachycardia and concern for toxic megacolon. 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 Clinically deteriorating. Going for surgery for perforation/free air. Near total colectomy performed. Became hypotensive, tachycardic with rates into 180s. Aggressively fluid resuscitated. 02/24/18 UOP, tachycardia improved. Cont abx. Initiate TPN. Monitoring for return of bowel fxn. 02/25/18 Given Kphos Transfused another 1U PRBCs. Stopped LR. Surgery to trial clamping NGT. Intermittently febrile- rectal Tylenol. 02/26/18 Did have fever overnight. Has tolerated NGT clamping. No O2 requirements. No N/V /CP. Hasn't been able to perform IS very well. 02/27/18 Remains on TPN, tolerating limited oral liquids earlier today however resultant emesis has required resumption of NG suction. Good output per ostomy; 2400 mL output reported during prior 24-hour period. Hemoglobin drifting down, ongoing hypokalemia-post being reassessed this afternoon. Potassium increased and TPN but may require supplemental boluses due to potassium lost in stool and emesis. Persistent tachycardia-may require additional blood transfusion. Remains on Zosyn for peritonitis; chest x-ray with pleural effusion but no evidence of pneumonia. May require repeat CT abdomen/pelvis to exclude intra-abdominal abscess. 02/28/18 Remains on TPN, electrolytes stable. Good urine output per ostomy but continues to have high volume output per NG. Output significantly higher than input, weight down, ongoing tachycardia--> 1 L fluid bolus tonight. Anticipate ongoing need for fluids to match fluid losses. CT abdomen/pelvis discussed with radiology this evening and subsequently with Dr. Hills; will review further with radiology tomorrow to determine if drainage can be performed of the subphrenic abscess percutaneously or if surgical drainage/washout will be needed due to presence of multiple smaller fluid collections suggestive of early abscesses. Dr. Hills notified patient 's parents of findings. Hemoglobin continues to drift down very slowly, may be slightly hemoconcentrated at present. Type and screen in a.m. Anticipating transfusion in the next 1-2 days. 03/01/18 OP Day - Exploratory laparotomy, drainage of multiple intraabdominal abscesses, fecal disimpaction, intraoperative flexible proctoscopy. Subdiaphragmatic abscess and left upper quadrant-discussed with radiology and message subsequently relayed to Dr. Hills regarding potential risk of percutaneous drainage. Patient tenably scheduled to return to the operating room later today. Several very small extensive gas in the pelvis without clear room enhancement to suggest abscess, may simply be postoperative change. Remains on TPN, electrolytes stable. Good urine output per ostomy but continues to have high volume output per NG. Output significantly higher than input, weight down, ongoing tachycardia--> 1 L fluid bolus this a.m. and continue normal saline at 100 mL per hour. 2 units PRBCs matched preoperatively; one being given prior to surgery for hemoglobin 7.4. 03/02/18 s/p ex lap with placement of drains by Dr. Hills. Febrile before surgery. WBC up post-op. Wound cx growing GPC, GNR, GPR. Continue Zosyn Remains on TPN, reduce K+. Good urine output. Output per NG down. Continued tachycardia. Continue IVF and treat pain. Output significantly higher than input, weight down, ongoing tachycardia--> 1 L fluid bolus this a.m. and continue normal saline at 100 mL per hour. Anticipate ongoing need for fluids to match fluid losses. 1 unit PRBCs given 03/01. Total of 4 units transfused Ferrlecit dose given 02/25, plan to repeat dose 03/04. Discussed with nursing who provide supplemental history; mother updated. Prognosis guarded. 03/03/18 s/p ex lap 03/01 with placement of drains by Dr. Hills. Afebrile and WBC down. Wound cx growing GPC, GNR, GPR. Continue Zosyn and fluconazole Continue TPN, K+ improved. Good urine output. Output per NG and ostomy down since 03/01 ex lap. Continued tachycardia. Continue IVF and treat pain. ? whether anxious. Trial of Ativan Anticipate ongoing need for fluids to match fluid losses. 1 unit PRBCs given 03/01. Total of 4 units transfused Ferrlecit dose given 02/25, plan to repeat dose 03/04. Discussed with nursing who provide supplemental history; mother updated. Prognosis guarded. 03/04/18 s/p ex lap 03/01 with placement of drains by Dr. Hills. Fever and WBC up slightly. Wound cx growing e coli, sensitive to Zosyn. Fluconazole. Check CXR Continue TPN, K+ improved. Good urine output. Output per NG and ostomy down since 03/01 ex lap. Continued tachycardia. Hold LR as patient with trace edema. Start fentanyl patch for pain. He got 28 mg iv morphine yesterday. Starting fentanyl at 12mcg d /t possible interaction with Fluconazole. 1 unit PRBCs given 03/01. Total of 4 units transfused Ferrlicit dose given 02/25, plan to repeat dose 03/04. Discussed with nursing who provide supplemental history. Encourage activity. Prognosis guarded 03/05/18 s/p ex lap 03/01 with placement of drains by Dr. Hills. Wound VAC. Fever. WBC down slightly. Wound cx growing e coli, sensitive to Zosyn. Fluconazole. Check CXR. Continue TPN, decrease Mg. Good urine output. Output per NG up yesterday. Continued tachycardia. Holding LR as patient with trace edema. Appears more comfortable with fentanyl patch for pain. Platelets trending up. Check inflammatory markers. If continued fever, consider repeating CT Encourage activity. 03/06/18 Temp elevations to 100.5 - 101.7. Persistent tachycardia in 130s. BP 100's. WBC with gradual trend down to 17.9 - was 25.0 on 03/02. Platelets trending up to 971 (was 407 on 03/02). Electrolytes and renal status stable - on TPN. Will continue with Zosyn and Diflucan for antimicrobial coverage. Continue with wound vac and drains. CT scan of ab/pelvis to exclude occult abscess formation. Encourage continued activities. 03/07/18 WBC with gradual trend down to 17.9 - was 17.9 on yesterday. Platelets elevated at 961 (was 971 yesterday). Hemoglobin persistently low at 7.6; with continued tachycardia will give 1 unit of pRBC. Electrolytes and renal status stable - on TPN. Will continue with Zosyn and Diflucan for antimicrobial coverage. Continue with wound vac and drains. CT scan of ab/pelvis showed possible new abscess formation in the suprapubic region and omental area. Encourage continued activities.
[2018-03-07] MEDS: ENOXAPARIN 40 MG/0.4 ML INJECTION SQ SCH (10:41)
[2018-03-07] MEDS: CLINIMIX-E 5%/20% TPN - STANDARD FORMULA IV SCH (11:03)
[2018-03-07] MEDS: MORPHINE SULFATE 4mg INJECTION IVP PRN ×3 (12:40→23:51)
[2018-03-07] MEDS: FAT EMULSION 20% 250 ML IV SCH (15:07)
[2018-03-07] MEDS ORDERED: VANCOMYCIN - PHARMACY CONSULT MC ONE (17:27)
--- NOTE | 2018-03-07 18:04 | Progress Note ---
DATE 03/07/2018 FINDINGS Cosmo was seen earlier today on rounds. He was awake. He did not appear to be in acute distress. He was requesting his mother. PHYSICAL EXAM VITAL SIGNS: I do see upon reviewing his electronic medical record that he has had a T-max this afternoon at 102.2. He is tachycardic with a pulse of 144. He remains tachypneic with a respiratory rate of 25. CHEST: Clear to auscultation bilaterally. HEART: Regular rate and rhythm. Normal S1 and S2 without gallops, murmurs or clicks. ABDOMEN: Visualization of his abdomen revealed a wound VAC to be in place and functioning. There was a fair amount of air and stool within his colostomy within the right lower quadrant. Palpation of the abdomen revealed it to be soft without apparent significant tenderness. Drains had minimal material within them. LABORATORY/RADIOGRAPHIC EVALUATION The patient's white count continues on a downward trend and today is 14.3. Continues with a component of thrombocytosis with a platelet count 961,000. Left shift with 81% neutrophils. Bandemia is stable. Creatinine was down this morning to 7.6. He has received a unit of blood and his latest hemoglobin at 4 o'clock was 8.3. BMP obtained and found to be without marked abnormalities. ASSESSMENT 32-year-old gentleman with history of colonic perforation, status post exploratory laparotomy, partial colonic resection with creation of end colostomy and Mendoza's pouch, development of postoperative intraabdominal abscesses, status post repeat exploratory laparotomy with drainage of intraabdominal abscesses. The patient remains critically ill. PLAN I agree with current management of this patient. Recommend continuing with ongoing broad-spectrum antibiotics. I have reviewed microbiology peritoneal cultures from March 01. Will continue with current ongoing broad-spectrum antibiotics and hyperalimentation. With his ongoing tachycardia and ongoing fever I am concerned. However, his repeat recent CT scan did not reveal any evidence for recurrent large abscess. Although his peritoneal cultures did not reveal any evidence for MRSA, with his ongoing fever and tachycardia one may wish to empirically add vancomycin to his antibiotic regimen. SYLVAIN
[2018-03-07] MEDS: FLUCONAZOLE PB 200 MG/100 ML BAG IV SCH (18:30)
[2018-03-07] MEDS: SODIUM CHLORIDE IV SCH (18:50)
[2018-03-07] MEDS: POTASSIUM ACETATE IV SCH (18:50)
[2018-03-07] MEDS: [UNRECOGNIZED DRUG - OTHER] IV SCH (18:50)
[2018-03-07] MEDS: SODIUM ACETATE IV SCH (18:50)
[2018-03-07] MEDS: ACETAMINOPHEN 650 MG SUPPOSITORY PR PRN (20:12)
[2018-03-07] MEDS: NS FLUSH BAG 500ml IV PRN (23:48)
[2018-03-08] MEDS: ACETAMINOPHEN 650 MG SUPPOSITORY PR PRN ×3 (00:18→19:58)
[2018-03-08] MEDS: MORPHINE SULFATE 4mg INJECTION IVP PRN ×3 (05:04→23:29)
[2018-03-08] MEDS: SALINE FLUSH 10ml SYRINGE IVF PRN ×3 (05:05→16:24)
[2018-03-08] MEDS: PIPERACILLIN/TAZOBACTAM 3.375 GM in NS 100 ML IV SCH (05:20)
[2018-03-08] MEDS: ALBUTEROL/IPRATROPIUM 2.5mg-0.5mg/3ml NEB IPPB SCH ×3 (06:39→19:25)
[2018-03-08] MEDS: PANTOPRAZOLE 40 MG INJECTION IVP SCH (08:46)
[2018-03-08] MEDS: ENOXAPARIN 40 MG/0.4 ML INJECTION SQ SCH (08:48)
[2018-03-08] MEDS: CLINIMIX-E 5%/20% TPN - STANDARD FORMULA IV SCH (09:08)
[2018-03-08] MEDS: MEROPENEM 1 GM in NS 100 ML IV SCH ×2 (12:21→20:21)
--- NOTE | 2018-03-08 14:00 | Progress Note ---
DATE OF SERVICE 03/08/2018 FINDINGS Mr. Albright was seen earlier this morning on rounds. Nurse did contact me earlier today concerned about his increased temperature, tachycardia and apparent increasing abdominal discomfort. PHYSICAL EXAM VITAL SIGNS: Temperature 103.1. Pulse 145. Respirations 20, blood pressure 110/69, SAO2 100% on room air. CHEST: Clear to auscultation bilaterally. HEART: Regular rate and rhythm. Normal S1 and S2 without gallops, murmurs or clicks. ABDOMEN: Visualization reveals the wound VAC to be in place and functioning overlying his prior midline incision. There is very minimal drainage coming forth from the [place] drains on the right. One can see some minimal purulent drainage within the [place] bulbs on the left. Palpation of his abdomen today does indeed reveal it to be more tender in nature in comparison to yesterday. Abdomen is more firm in nature and is not as soft. Given his decreased mental capacity, it is difficult to know whether or not he is experiencing severe pain for he is essentially nonverbal. LABORATORY/RADIOGRAPHIC EVALUATION The patient's white count today has now increased to 17,000. Does have ongoing left shift with 84% neutrophils. Hemoglobin is overall stable at 8.2. BMP obtained and found to be without marked abnormalities. ASSESSMENT 32-year-old gentleman with history for colonic perforation, status post exploratory laparotomy, segmental colonic resection with creation of end colostomy and Mendoza's pouch. History for fecal peritonitis. Status post repeat exploratory laparotomy with drainage of multiple intraabdominal abscesses. The patient remains critically ill. PLAN Yesterday I did elect to go ahead and change his antibiotic spectrum, given his ongoing leukocytosis and fever. We did increase the Diflucan and added vancomycin. The pharmacy has requested to change the Zosyn to meropenem. Will make these antibiotic changes and continue to follow the patient closely. If he continues with ongoing fever and increasing abdominal pain, may repeat go ahead and repeat CT scan once again tomorrow although the last CT scan was only performed two days ago on March 06 and at that time there was no evidence for a large residual abscess although one could still see some areas of abscesses along the left-sided drains. Unfortunately, I do feel the patient's prognosis is somewhat guarded given his gross fecal contamination noted initially with his ongoing fever and leukocytosis despite broad spectrum antibiotics and repeat exploratory laparotomy. Will continue with current care. SYLVAIN
[2018-03-08] MEDS ORDERED: ALBUTEROL/IPRATROPIUM 2.5mg-0.5mg/3ml NEB AEROSOL PRN (14:56)
[2018-03-08] MEDS: FAT EMULSION 20% 250 ML IV SCH (16:13)
[2018-03-08] MEDS ORDERED: ALTEPLASE (Cathflo*) 2mg INJECTION IV ONE (17:11)
--- NOTE | 2018-03-08 18:19 | Progress Note ---
- Date 03/08/18 Subjective: F/U: Toxic Megacolon, Perforation of splenic flexure, Multiple areas of intraabdominal abscess formation Sitting in bed. Not verbally interactive. Nursing reporting patient with more ab pain this morning-more tender to touch. Persistent temp elevations. Persistent tachycardia. Urine output stable. Maintaining saturation on RA. Objective Vital signs: Temperature 99.2 F 03/08/18 16:00 Pulse Rate 138 H 03/08/18 16:39 Respiratory Rate 19 03/08/18 16:00 Blood Pressure 113/67 03/08/18 16:00 Pulse Oximetry 100 03/08/18 16:00 Rhythm: Sinus Tachycardia Height/Weight/BMI: Height 1.75 m Weight 61.8 kg Body Mass Index 22.5 - Constitutional Present: well developed, thin - Routine HEENT Exam Head: Present: normocephalic, atraumatic Eye: Present: EOMI, PERRL ENT: Present: mucous membranes moist - Routine Respiratory Exam Present: decreased breath sounds. Absent: respiratory distress - Routine Cardiovascular Exam Present: no murmur, tachycardia - Routine Abdominal Exam Present: tenderness (Mild diffuse). Absent: normoactive bowel sounds - Routine Extremities Exam Present: no edema, pulses intact. Absent: cyanosis, clubbing - Routine Musculoskeletal Exam Musculoskeletal: Present: no clubbing or cyanosis - Routine Skin Exam Present: dry, warm - Routine Neurological Exam Present: alert, vision grossly intact, hearing grossly intact - Routine Psychiatric Exam Comments: Looks more apprehensive Results - Labs CBC & Chem 7: 03/08/18 04:34 03/08/18 04:34 Microbiology Results: Microbiology 03/01/18 18:56 Abdomen, Left Upper Gram Stain - Final 03/01/18 18:56 Abdomen, Left Upper Surgical Culture - Final Escherichia coli Anaerobic Gram-Negative Bhanu Anaerobic Gram-Positive Cocci 02/23/18 20:15 Peripheral/Iv Start Gram Stain - Final Not performed 02/23/18 20:15 Peripheral/Iv Start Blood Culture - Final No Growth After 5 Days 02/23/18 20:05 Peripheral/Iv Start Gram Stain - Final Not performed 02/23/18 20:05 Peripheral/Iv Start Blood Culture - Final No Growth After 5 Days 02/20/18 20:07 Peripheral/Iv Start Blood Culture - Final No Growth After 5 Days Assessment and Plan (1) Megacolon Problem details: Toxic megacolon Current visit: Yes Status: Acute (2) Perforation of colon Problem details: Perforation of the splenic flexure due to ischemic changes Current visit: Yes Status: Acute Assessment and Plan: Assessment 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 HGB increased to 8.2 post transfusion yesterday. Pharm recommended changing Zosyn to Meropenem - did agree. Continue vancomycin and Diflucan. Will continue with TPN for nutritional support - NS bolus of 500cc to help with tachycardia. Continue with pain control. Monitor lab. Discussed case with CCU nursing and Dr Gomez. Time spent with patient care 25 minutes. DVT Prophylaxis: Lovenox Resuscitation Status: Full Code - Physician Narrative Physician: Daniel Stevens MD Narrative: Date: 03/08/18 Time: 1815 Hospital Course Summary Disclaimer: The visit summary below is not to be considered part of the above Progress Note. Hospital Course: 02/20/18 Admit, CCU. Bowel rest - NPO. Cont IVF - 1/2 NS with Na of 144. Consult Dr. Gomez for mgt. Sx management with Protonix, morphine, Zofran. Cont IVF for tachycardia; sepsis. Repeat lactate. Cont Zosyn for bowel coverage. Follow BC results. Iron w/u in progress. Type & screen ordered. D/W with Dr. Stevens and RN. 02/22/18 Gastrografin enema 02/21 with copious stool resulting. However, still with stool in rectal vault. Deferring further management to surgery team, await recs. Cont Zosyn given bandemia, tachycardia and concern for toxic megacolon. 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 Clinically deteriorating. Going for surgery for perforation/free air. Near total colectomy performed. Became hypotensive, tachycardic with rates into 180s. Aggressively fluid resuscitated. 02/24/18 UOP, tachycardia improved. Cont abx. Initiate TPN. Monitoring for return of bowel fxn. 02/25/18 Given Kphos Transfused another 1U PRBCs. Stopped LR. Surgery to trial clamping NGT. Intermittently febrile- rectal Tylenol. 02/26/18 Did have fever overnight. Has tolerated NGT clamping. No O2 requirements. No N/V /CP. Hasn't been able to perform IS very well. 02/27/18 Remains on TPN, tolerating limited oral liquids earlier today however resultant emesis has required resumption of NG suction. Good output per ostomy; 2400 mL output reported during prior 24-hour period. Hemoglobin drifting down, ongoing hypokalemia-post being reassessed this afternoon. Potassium increased and TPN but may require supplemental boluses due to potassium lost in stool and emesis. Persistent tachycardia-may require additional blood transfusion. Remains on Zosyn for peritonitis; chest x-ray with pleural effusion but no evidence of pneumonia. May require repeat CT abdomen/pelvis to exclude intra-abdominal abscess. 02/28/18 Remains on TPN, electrolytes stable. Good urine output per ostomy but continues to have high volume output per NG. Output significantly higher than input, weight down, ongoing tachycardia--> 1 L fluid bolus tonight. Anticipate ongoing need for fluids to match fluid losses. CT abdomen/pelvis discussed with radiology this evening and subsequently with Dr. Hills; will review further with radiology tomorrow to determine if drainage can be performed of the subphrenic abscess percutaneously or if surgical drainage/washout will be needed due to presence of multiple smaller fluid collections suggestive of early abscesses. Dr. Hills notified patient 's parents of findings. Hemoglobin continues to drift down very slowly, may be slightly hemoconcentrated at present. Type and screen in a.m. Anticipating transfusion in the next 1-2 days. 03/01/18 OP Day - Exploratory laparotomy, drainage of multiple intraabdominal abscesses, fecal disimpaction, intraoperative flexible proctoscopy. Subdiaphragmatic abscess and left upper quadrant-discussed with radiology and message subsequently relayed to Dr. Hills regarding potential risk of percutaneous drainage. Patient tenably scheduled to return to the operating room later today. Several very small extensive gas in the pelvis without clear room enhancement to suggest abscess, may simply be postoperative change. Remains on TPN, electrolytes stable. Good urine output per ostomy but continues to have high volume output per NG. Output significantly higher than input, weight down, ongoing tachycardia--> 1 L fluid bolus this a.m. and continue normal saline at 100 mL per hour. 2 units PRBCs matched preoperatively; one being given prior to surgery for hemoglobin 7.4. 03/02/18 s/p ex lap with placement of drains by Dr. Hills. Febrile before surgery. WBC up post-op. Wound cx growing GPC, GNR, GPR. Continue Zosyn Remains on TPN, reduce K+. Good urine output. Output per NG down. Continued tachycardia. Continue IVF and treat pain. Output significantly higher than input, weight down, ongoing tachycardia--> 1 L fluid bolus this a.m. and continue normal saline at 100 mL per hour. Anticipate ongoing need for fluids to match fluid losses. 1 unit PRBCs given 03/01. Total of 4 units transfused Ferrlecit dose given 02/25, plan to repeat dose 03/04. Discussed with nursing who provide supplemental history; mother updated. Prognosis guarded. 03/03/18 s/p ex lap 03/01 with placement of drains by Dr. Hills. Afebrile and WBC down. Wound cx growing GPC, GNR, GPR. Continue Zosyn and fluconazole Continue TPN, K+ improved. Good urine output. Output per NG and ostomy down since 03/01 ex lap. Continued tachycardia. Continue IVF and treat pain. ? whether anxious. Trial of Ativan Anticipate ongoing need for fluids to match fluid losses. 1 unit PRBCs given 03/01. Total of 4 units transfused Ferrlecit dose given 02/25, plan to repeat dose 03/04. Discussed with nursing who provide supplemental history; mother updated. Prognosis guarded. 03/04/18 s/p ex lap 03/01 with placement of drains by Dr. Hills. Fever and WBC up slightly. Wound cx growing e coli, sensitive to Zosyn. Fluconazole. Check CXR Continue TPN, K+ improved. Good urine output. Output per NG and ostomy down since 03/01 ex lap. Continued tachycardia. Hold LR as patient with trace edema. Start fentanyl patch for pain. He got 28 mg iv morphine yesterday. Starting fentanyl at 12mcg d /t possible interaction with Fluconazole. 1 unit PRBCs given 03/01. Total of 4 units transfused Ferrlicit dose given 02/25, plan to repeat dose 03/04. Discussed with nursing who provide supplemental history. Encourage activity. Prognosis guarded 03/05/18 s/p ex lap 03/01 with placement of drains by Dr. Hills. Wound VAC. Fever. WBC down slightly. Wound cx growing e coli, sensitive to Zosyn. Fluconazole. Check CXR. Continue TPN, decrease Mg. Good urine output. Output per NG up yesterday. Continued tachycardia. Holding LR as patient with trace edema. Appears more comfortable with fentanyl patch for pain. Platelets trending up. Check inflammatory markers. If continued fever, consider repeating CT Encourage activity. 03/06/18 Temp elevations to 100.5 - 101.7. Persistent tachycardia in 130s. BP 100's. WBC with gradual trend down to 17.9 - was 25.0 on 03/02. Platelets trending up to 971 (was 407 on 03/02). Electrolytes and renal status stable - on TPN. Will continue with Zosyn and Diflucan for antimicrobial coverage. Continue with wound vac and drains. CT scan of ab/pelvis to exclude occult abscess formation. Encourage continued activities. 03/07/18 WBC with gradual trend down to 14.3 - was 17.9 on yesterday. Platelets elevated at 961 (was 971 yesterday). Hemoglobin persistently low at 7.6; with continued tachycardia will give 1 unit of pRBC. Electrolytes and renal status stable - on TPN. Will continue with Zosyn for antimicrobial coverage; Dr Gomez added Vancomycin and increased Diflucan to 200mg daily. Continue with wound vac and drains. CT scan of ab/pelvis showed possible new abscess formation in the suprapubic region and omental area. Encourage continued activities. 03/08/18 WBC with increase back to 17.1. HGB increased to 8.2 post transfusion yesterday. Pharm recommended changing Zosyn to Meropenem - did agree. Continue vancomycin and Diflucan. Will continue with TPN for nutritional support - NS bolus of 500cc to help with tachycardia. Continue with pain control.
[2018-03-08] MEDS: FLUCONAZOLE PB 200 MG/100 ML BAG IV SCH (19:11)
[2018-03-08] MEDS: VANCOMYCIN 1,250 MG in NS 250 ML IV SCH (21:53)
[2018-03-09] MEDS: MEROPENEM 1 GM in NS 100 ML IV SCH ×3 (04:57→19:39)
[2018-03-09] MEDS: VANCOMYCIN 1,250 MG in NS 250 ML IV SCH ×3 (05:36→21:34)
[2018-03-09] MEDS: ALBUTEROL/IPRATROPIUM 2.5mg-0.5mg/3ml NEB IPPB SCH ×3 (06:32→20:17)
[2018-03-09] MEDS: MORPHINE SULFATE 4mg INJECTION IVP PRN ×4 (07:24→19:34)
[2018-03-09] MEDS: CLINIMIX-E 5%/20% TPN - STANDARD FORMULA IV SCH (08:05)
--- NOTE | 2018-03-09 08:55 | Pharmacy Consult-TPN/PPN ---
Pharmacy Consult-TPN/PPN - Laboratory Information Chemistry Turbidity < 20 (0-20) 03/09/18 04:16 Sodium 136 MEQ/L (136-146) 03/09/18 04:16 Potassium 4.2 MEQ/L (3.6-5) 03/09/18 04:16 Chloride 104 MEQ/L (98-107) 03/09/18 04:16 Carbon Dioxide 23 MEQ/L (22-30) 03/09/18 04:16 Anion Gap 9 meq/L (5-15) 03/09/18 04:16 BUN 14.0 MG/DL (9-20) 03/09/18 04:16 Creatinine 0.5 mg/dL (0.8-1.5) L 03/09/18 04:16 GFR Calculation 195 03/09/18 04:16 BUN/Creatinine Ratio 28 RATIO (6-26) H 03/09/18 04:16 Glucose 104 MG/DL (75-110) 03/09/18 04:16 Glucometer 144 mg/dL (65-110) 03/08/18 23:24 Calculated Osmolality 263 MOSM/KG (261-280) 03/09/18 04:16 Calcium 7.8 MG/DL (8.4-10.2) L 03/09/18 04:16 Ionized Calcium [place] 1.11 MMOL/L (1.12-1.32) L 02/25/18 04:20 Phosphorus 4.7 MG/DL (2.5-4.5) H 03/08/18 04:34 Magnesium 2.3 MG/DL (1.6-2.3) 03/09/18 04:17 Iron 11 ug/dL (49-181) L 02/20/18 20:07 TIBC 342 ug/dL (261-497) 02/20/18 20:07 % Saturation 3 % (13-59) L 02/20/18 20:07 Ferritin 2.44 ng/mL (17-464) L 02/20/18 20:07 Total Bilirubin 0.70 MG/DL (0.20-1.30) 03/09/18 04:16 Icterus Index < 2 (0-7) 03/09/18 04:16 AST 40 U/L (17-59) 03/09/18 04:16 ALT 31 U/L (1-50) 03/09/18 04:16 Alkaline Phosphatase 124 U/L (38-126) 03/09/18 04:16 C-Reactive Protein 172.0 mg/L (0-9) H 03/06/18 04:04 Total Protein 5.5 g/dL (6.3-8.2) L 03/09/18 04:16 Albumin 2.4 g/dL (3.5-5.0) L 03/09/18 04:16 Globulin 3.1 G/DL (2.4-3.6) 03/09/18 04:16 Albumin/Globulin Ratio 0.8 RATIO (1.1-2.2) L 03/09/18 04:16 Lipase 21 U/L (23-300) L 02/20/18 15:25 Plasma Lactate 1.3 MMOL/L (0.6-2.2) 02/24/18 04:13 Vitamin B12 367 pg/mL (239-931) 02/20/18 20:07 Procalcitonin < 0.05 NG/ML 02/21/18 04:11 Specimen Hemolysis < 15 (0-25) 03/09/18 04:16 Intake and Output 03/08/18 03/09/18 03/10/18 06:59 06:59 06:59 Intake Total 3931.667 / 3931.667 4274.334 / 4274.334 181 / 181 Output Total 3219 / 3219 3772 / 3772 Balance 712.667 / 712.667 502.334 / 502.334 181 / 181 Weight 60.5 kg 61.8 kg Intake: IV 3611.667 / 3611.667 4094.334 / 4094.334 181 / 181 Fat Emulsion 20% 250 ml @ 25 200.000 / 200.000 250.000 / 250.000 mls/hr IV 1600 [facility] Rx#: [id number] Fluconazole Pb 200 mg In 100 ml 150 / 150 100 / 100 @ 100 mls/hr IV Q24H [facility] Rx#: [id number] Meropenem 1 gm In Ns 100 ml @ 300 / 300 200 mls/hr IV Q8H [facility] Rx#: [id number] Multi-Vit Infusion 10 ml Multi 1795 / 1795 2116 / 2116 11 / 11 -Trace Elements 1 ml In TPN - Standard Formula 2,000 ml @ 100 mls/hr IV .Q20H7M [facility] Rx#: [id number] NS 500ml 500 ml @ 100 mls/hr IV 498.334 / 498.334 .Q5H [facility] Rx#:[id number] Piperacillin/Tazobactam 3.375 400.000 / 400.000 gm In Ns 100 ml @ 200 mls/hr IV Q6H [facility] Rx#:[id number] Sodium Chloride Conc 40 meq 300 / 300 Sodium Acetate 80 meq Potassium Acetate Inj 50 meq SODIUM PHOSPHATE (mEq) 30 meq Magnesium Sulfate Inj 4 meq Calcium Chloride 9.3 meq Multi- Vit Infusion 10 ml Multi-Trace Elements 1 ml In TPN - Custom Formula 2,000 ml @ 100 mls/hr IV .Q21H1M [facility] Rx#:[id number] Vancomycin 1,250 mg In NS 250ml 330.000 / 330.000 170 / 170 250 ml @ 200 mls/hr IV Q8H [facility] Rx#:[id number] Vancomycin 2,000 mg In NS 500ml 766.667 / 766.667 500 / 500 500 ml @ 250 mls/hr IV Q8H [facility] Rx#:[id number] Oral 200 / 200 60 / 60 Intake, Gastric Tube Irrigant 120 / 120 120 / 120 Amount Left Nare 120 / 120 120 / 120 Output: Stool 225 / 225 250 / 250 Urine Amount (Catheter) 2665 / 2665 2675 / 2675 Gastric Drainage 250 / 250 775 / 775 Left Nare 250 / 250 775 / 775 Wound Drainage 79 / 79 72 / 72 Abdomen 30 / 30 20 / 20 Left Anterior Medial Abdomen 3 / 3 10 / 10 Left Lower Abdomen 8 / 8 5 / 5 Left Lower Lateral Abdomen 8 / 8 3 / 3 Right Anterior Medial Abdomen Right Lower Lateral Abdomen Other: Urine Appearance Clear Clear Urine Color Light Meliza Dark Yellow Stool Color Brown Brown Green Stool Consistency Liquid Liquid Size of Bowel Movement Small Drain Type Left Anterior Medial Abdomen Bulb [place] Bulb [place] Left Lower Abdomen Bulb [place] Bulb [place] Left Lower Lateral Abdomen Bulb [place]b [place] Right Anterior Medial Abdomen Bulb [place] Bulb [place] Right Lower Lateral Abdomen Bulb [place] Bulb [place] - Consult Information TPN CONSULT: Day 14 5'9" 64 kg male patient admitted with toxic megacolon-ischemic colitis. Patient had a near total colectomy and is currently on TPN. The current TPN is AA 5%/Dextrose 20% 2 liter bag. Rate is 100 ml/hr. Patient is also receiving 20% Fat Emulsion 250 ML. The patient is receiving 1632 KCAL from the Dextrose and 500 KCAL from the Lipids = 2132 total non-protein KCAL. Electrolytes are now the Standard Concentration that is contained in the Clinimix-E 5/20 2 liter bag. The TPN is running at 100 ml/hr. The pt is getting 2.4 liters/24 hrs. Today's electrolytes are all within normal limits. The Calcium remains slightly low at 7.8 because the patient's albumin level is low at 2.4. The TPN will remain the same for today. Pharmacy will continue to monitor the electrolytes and adjust as needed. Thank you. Vidya Munoz, PharmD
[2018-03-09] MEDS: ENOXAPARIN 40 MG/0.4 ML INJECTION SQ SCH (09:09)
[2018-03-09] MEDS: PANTOPRAZOLE 40 MG INJECTION IVP SCH (09:09)
--- NOTE | 2018-03-09 09:44 | General Surgery Progress Note ---
Subjective Narrative: He is in the recliner. He was able to tell me his abdomen hurts and points to LLQ. Denies nausea. - Vital Signs Last Vital Signs Temp 101.3 F H 03/09/18 04:00 Pulse 144 H 03/09/18 07:00 Resp 18 03/09/18 07:00 BP 106/65 03/09/18 07:00 Pulse Ox 96 03/09/18 07:00 - Laboratory Result Diagrams: 03/09/18 04:16 03/09/18 04:16 Laboratory Tests 03/05/18 03/06/18 03/07/18 04:37 04:04 04:45 WBC 19.6 H 17.9 H 14.3 H Plt Count 971 H* 961 H* Neutrophils % (Manual) Band Neutrophils % Lymphocytes % (Manual) 03/08/18 03/09/18 04:34 04:16 WBC 17.1 H 15.6 H Plt Count 871 H* 788 H* Neutrophils % (Manual) 84.0 H 72.0 H Band Neutrophils % 5.0 18.0 H D Lymphocytes % (Manual) 5.0 L 8.0 L - Abnormal Exam Cardiovascular: other (tachy in thye 140's) Abdominal: hypoactive bowel sounds, firm, tender (difuse, worst LLQ), incision(s ) (vac foam nicely compressed), other (no stool in bag currently) - Normal Exam General: awake, alert Respiratory: no labored breathing (shallow inspiration) Abdominal: other (colostomy approprately red and moist.) Assessment and Plan (1) Impaction of colon Current Visit: Yes Status: Acute (2) Megacolon Current Visit: Yes Status: Acute Problem details: Toxic megacolon (3) Mild epistaxis Current Visit: Yes Status: Acute (4) Postoperative intra-abdominal abscess Current Visit: Yes Status: Acute Qualifiers: Encounter type: initial encounter Qualified Code(s): T81.4XXA - Infection following a procedure, initial encounter; K65.1 - Peritoneal abscess (5) Perforated sigmoid colon Current Visit: Yes Status: Acute (6) Colostomy in place Current Visit: Yes Status: Chronic (7) 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 WBC still 15.6 after changing ABX and adding vancomycin, and increasing fluconazole Hospital Course Summary Disclaimer: The visit summary below is not to be considered part of the above Progress Note. Hospital Course: 02/20/18 Admit, CCU. Bowel rest - NPO. Cont IVF - 1/2 NS with Na of 144. Consult Dr. Gomez for mgt. Sx management with Protonix, morphine, Zofran. Cont IVF for tachycardia; sepsis. Repeat lactate. Cont Zosyn for bowel coverage. Follow BC results. Iron w/u in progress. Type & screen ordered. D/W with Dr. Stevens and RN. 02/22/18 Gastrografin enema 02/21 with copious stool resulting. However, still with stool in rectal vault. Deferring further management to surgery team, await recs. Cont Zosyn given bandemia, tachycardia and concern for toxic megacolon. 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 Clinically deteriorating. Going for surgery for perforation/free air. Near total colectomy performed. Became hypotensive, tachycardic with rates into 180s. Aggressively fluid resuscitated. 02/24/18 UOP, tachycardia improved. Cont abx. Initiate TPN. Monitoring for return of bowel fxn. 02/25/18 Given Kphos Transfused another 1U PRBCs. Stopped LR. Surgery to trial clamping NGT. Intermittently febrile- rectal Tylenol. 02/26/18 Did have fever overnight. Has tolerated NGT clamping. No O2 requirements. No N/V /CP. Hasn't been able to perform IS very well. 02/27/18 Remains on TPN, tolerating limited oral liquids earlier today however resultant emesis has required resumption of NG suction. Good output per ostomy; 2400 mL output reported during prior 24-hour period. Hemoglobin drifting down, ongoing hypokalemia-post being reassessed this afternoon. Potassium increased and TPN but may require supplemental boluses due to potassium lost in stool and emesis. Persistent tachycardia-may require additional blood transfusion. Remains on Zosyn for peritonitis; chest x-ray with pleural effusion but no evidence of pneumonia. May require repeat CT abdomen/pelvis to exclude intra-abdominal abscess. 02/28/18 Remains on TPN, electrolytes stable. Good urine output per ostomy but continues to have high volume output per NG. Output significantly higher than input, weight down, ongoing tachycardia--> 1 L fluid bolus tonight. Anticipate ongoing need for fluids to match fluid losses. CT abdomen/pelvis discussed with radiology this evening and subsequently with Dr. Hills; will review further with radiology tomorrow to determine if drainage can be performed of the subphrenic abscess percutaneously or if surgical drainage/washout will be needed due to presence of multiple smaller fluid collections suggestive of early abscesses. Dr. Hills notified patient 's parents of findings. Hemoglobin continues to drift down very slowly, may be slightly hemoconcentrated at present. Type and screen in a.m. Anticipating transfusion in the next 1-2 days. 03/01/18 OP Day - Exploratory laparotomy, drainage of multiple intraabdominal abscesses, fecal disimpaction, intraoperative flexible proctoscopy. Subdiaphragmatic abscess and left upper quadrant-discussed with radiology and message subsequently relayed to Dr. Hills regarding potential risk of percutaneous drainage. Patient tenably scheduled to return to the operating room later today. Several very small extensive gas in the pelvis without clear room enhancement to suggest abscess, may simply be postoperative change. Remains on TPN, electrolytes stable. Good urine output per ostomy but continues to have high volume output per NG. Output significantly higher than input, weight down, ongoing tachycardia--> 1 L fluid bolus this a.m. and continue normal saline at 100 mL per hour. 2 units PRBCs matched preoperatively; one being given prior to surgery for hemoglobin 7.4. 03/02/18 s/p ex lap with placement of drains by Dr. Hills. Febrile before surgery. WBC up post-op. Wound cx growing GPC, GNR, GPR. Continue Zosyn Remains on TPN, reduce K+. Good urine output. Output per NG down. Continued tachycardia. Continue IVF and treat pain. Output significantly higher than input, weight down, ongoing tachycardia--> 1 L fluid bolus this a.m. and continue normal saline at 100 mL per hour. Anticipate ongoing need for fluids to match fluid losses. 1 unit PRBCs given 03/01. Total of 4 units transfused Ferrlecit dose given 02/25, plan to repeat dose 03/04. Discussed with nursing who provide supplemental history; mother updated. Prognosis guarded. 03/03/18 s/p ex lap 03/01 with placement of drains by Dr. Hills. Afebrile and WBC down. Wound cx growing GPC, GNR, GPR. Continue Zosyn and fluconazole Continue TPN, K+ improved. Good urine output. Output per NG and ostomy down since 03/01 ex lap. Continued tachycardia. Continue IVF and treat pain. ? whether anxious. Trial of Ativan Anticipate ongoing need for fluids to match fluid losses. 1 unit PRBCs given 03/01. Total of 4 units transfused Ferrlecit dose given 02/25, plan to repeat dose 03/04. Discussed with nursing who provide supplemental history; mother updated. Prognosis guarded. 03/04/18 s/p ex lap 03/01 with placement of drains by Dr. Hills. Fever and WBC up slightly. Wound cx growing e coli, sensitive to Zosyn. Fluconazole. Check CXR Continue TPN, K+ improved. Good urine output. Output per NG and ostomy down since 03/01 ex lap. Continued tachycardia. Hold LR as patient with trace edema. Start fentanyl patch for pain. He got 28 mg iv morphine yesterday. Starting fentanyl at 12mcg d /t possible interaction with Fluconazole. 1 unit PRBCs given 03/01. Total of 4 units transfused Ferrlicit dose given 02/25, plan to repeat dose 03/04. Discussed with nursing who provide supplemental history. Encourage activity. Prognosis guarded 03/05/18 s/p ex lap 03/01 with placement of drains by Dr. Hills. Wound VAC. Fever. WBC down slightly. Wound cx growing e coli, sensitive to Zosyn. Fluconazole. Check CXR. Continue TPN, decrease Mg. Good urine output. Output per NG up yesterday. Continued tachycardia. Holding LR as patient with trace edema. Appears more comfortable with fentanyl patch for pain. Platelets trending up. Check inflammatory markers. If continued fever, consider repeating CT Encourage activity. 03/06/18 Temp elevations to 100.5 - 101.7. Persistent tachycardia in 130s. BP 100's. WBC with gradual trend down to 17.9 - was 25.0 on 03/02. Platelets trending up to 971 (was 407 on 03/02). Electrolytes and renal status stable - on TPN. Will continue with Zosyn and Diflucan for antimicrobial coverage. Continue with wound vac and drains. CT scan of ab/pelvis to exclude occult abscess formation. Encourage continued activities. 03/07/18 WBC with gradual trend down to 14.3 - was 17.9 on yesterday. Platelets elevated at 961 (was 971 yesterday). Hemoglobin persistently low at 7.6; with continued tachycardia will give 1 unit of pRBC. Electrolytes and renal status stable - on TPN. Will continue with Zosyn for antimicrobial coverage; Dr Gomez added Vancomycin and increased Diflucan to 200mg daily. Continue with wound vac and drains. CT scan of ab/pelvis showed possible new abscess formation in the suprapubic region and omental area. Encourage continued activities. 03/08/18 WBC with increase back to 17.1. HGB increased to 8.2 post transfusion yesterday. Pharm recommended changing Zosyn to Meropenem - did agree. Continue vancomycin and Diflucan. Will continue with TPN for nutritional support - NS bolus of 500cc to help with tachycardia. Continue with pain control.
[2018-03-09] MEDS: FAT EMULSION 20% 250 ML IV SCH (16:18)
[2018-03-09] MEDS: FLUCONAZOLE PB 200 MG/100 ML BAG IV SCH (17:15)
--- NOTE | 2018-03-09 18:33 | Progress Note ---
- Date 03/09/18 Subjective: F/U: Toxic Megacolon, Perforation of splenic flexure, Multiple areas of intraabdominal abscess formation Resting in bed. Nursing reports pt had discomfort with positional changes and tube adjustment-needed MS to help. Urine output has been well. Maintaining saturations on room air. Uncomfortable in general. Pt able to verbalize yes when asked in neck stiff/sore/tense. Objective Vital signs: Temperature 102.2 F H 03/09/18 16:00 Pulse Rate 160 H 03/09/18 17:30 Respiratory Rate 20 03/09/18 17:30 Blood Pressure 100/59 03/09/18 17:00 Pulse Oximetry 94 03/09/18 17:30 Rhythm: Sinus Tachycardia Height/Weight/BMI: Height 1.75 m Weight 53.5 kg Body Mass Index 22.5 - Constitutional Present: well developed, thin - Routine HEENT Exam Head: Present: normocephalic, atraumatic Eye: Present: EOMI, PERRL ENT: Present: mucous membranes moist - Routine Respiratory Exam Present: decreased breath sounds, respiratory distress (Shallow breathing with basilar blunting) - Routine Cardiovascular Exam Present: no murmur, tachycardia (Regular) - Routine Abdominal Exam Absent: normoactive bowel sounds (Decreased ) - Routine Extremities Exam Present: no edema, pulses intact. Absent: cyanosis, clubbing - Routine Skin Exam Present: warm. Absent: dry (Moist) - Routine Psychiatric Exam Comments: Verbalized with yes/no grunts Results - Labs CBC & Chem 7: 03/09/18 04:16 03/09/18 04:16 Microbiology Results: Microbiology 03/01/18 18:56 Abdomen, Left Upper Gram Stain - Final 03/01/18 18:56 Abdomen, Left Upper Surgical Culture - Final Escherichia coli Anaerobic Gram-Negative Bhanu Anaerobic Gram-Positive Cocci 02/23/18 20:15 Peripheral/Iv Start Gram Stain - Final Not performed 02/23/18 20:15 Peripheral/Iv Start Blood Culture - Final No Growth After 5 Days 02/23/18 20:05 Peripheral/Iv Start Gram Stain - Final Not performed 02/23/18 20:05 Peripheral/Iv Start Blood Culture - Final No Growth After 5 Days 02/20/18 20:07 Peripheral/Iv Start Blood Culture - Final No Growth After 5 Days Assessment and Plan (1) Megacolon Problem details: Toxic megacolon Current visit: Yes Status: Acute (2) Perforation of colon Problem details: Perforation of the splenic flexure due to ischemic changes Current visit: Yes Status: Acute Assessment and Plan: Assessment 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 WBC with decrease to 15.6, but increased bands noted. Renal status and electrolytes stable. Continues of Meropenem, vancomycin, and Diflucan for coverage. Dr Gomez plan repeating CT scan with contrast (though NG) tomorrow to check for bowel function and further abscesses. TPN for nutritional and volume support. Continue with MS for pain, add Aspercreme for muscle discomfort. Repeat BMP, Mg, and Phos tomorrow due to TPN. Will repeat CBC due to leukocytosis/thrombocytosis. Discussed case with CCU nursing and Dr Gomez. Time spent with patient care 25 minutes. DVT Prophylaxis: Lovenox Resuscitation Status: Full Code - Physician Narrative Physician: Daniel Stevens MD Narrative: Date: 03/09/18 Time: 1830 Hospital Course Summary Disclaimer: The visit summary below is not to be considered part of the above Progress Note. Hospital Course: 02/20/18 Admit, CCU. Bowel rest - NPO. Cont IVF - 1/2 NS with Na of 144. Consult Dr. Gomez for mgt. Sx management with Protonix, morphine, Zofran. Cont IVF for tachycardia; sepsis. Repeat lactate. Cont Zosyn for bowel coverage. Follow BC results. Iron w/u in progress. Type & screen ordered. D/W with Dr. Stevens and RN. 02/22/18 Gastrografin enema 02/21 with copious stool resulting. However, still with stool in rectal vault. Deferring further management to surgery team, await recs. Cont Zosyn given bandemia, tachycardia and concern for toxic megacolon. 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 Clinically deteriorating. Going for surgery for perforation/free air. Near total colectomy performed. Became hypotensive, tachycardic with rates into 180s. Aggressively fluid resuscitated. 02/24/18 UOP, tachycardia improved. Cont abx. Initiate TPN. Monitoring for return of bowel fxn. 02/25/18 Given Kphos Transfused another 1U PRBCs. Stopped LR. Surgery to trial clamping NGT. Intermittently febrile- rectal Tylenol. 02/26/18 Did have fever overnight. Has tolerated NGT clamping. No O2 requirements. No N/V /CP. Hasn't been able to perform IS very well. 02/27/18 Remains on TPN, tolerating limited oral liquids earlier today however resultant emesis has required resumption of NG suction. Good output per ostomy; 2400 mL output reported during prior 24-hour period. Hemoglobin drifting down, ongoing hypokalemia-post being reassessed this afternoon. Potassium increased and TPN but may require supplemental boluses due to potassium lost in stool and emesis. Persistent tachycardia-may require additional blood transfusion. Remains on Zosyn for peritonitis; chest x-ray with pleural effusion but no evidence of pneumonia. May require repeat CT abdomen/pelvis to exclude intra-abdominal abscess. 02/28/18 Remains on TPN, electrolytes stable. Good urine output per ostomy but continues to have high volume output per NG. Output significantly higher than input, weight down, ongoing tachycardia--> 1 L fluid bolus tonight. Anticipate ongoing need for fluids to match fluid losses. CT abdomen/pelvis discussed with radiology this evening and subsequently with Dr. Hills; will review further with radiology tomorrow to determine if drainage can be performed of the subphrenic abscess percutaneously or if surgical drainage/washout will be needed due to presence of multiple smaller fluid collections suggestive of early abscesses. Dr. Hills notified patient 's parents of findings. Hemoglobin continues to drift down very slowly, may be slightly hemoconcentrated at present. Type and screen in a.m. Anticipating transfusion in the next 1-2 days. 03/01/18 OP Day - Exploratory laparotomy, drainage of multiple intraabdominal abscesses, fecal disimpaction, intraoperative flexible proctoscopy. Subdiaphragmatic abscess and left upper quadrant-discussed with radiology and message subsequently relayed to Dr. Hills regarding potential risk of percutaneous drainage. Patient tenably scheduled to return to the operating room later today. Several very small extensive gas in the pelvis without clear room enhancement to suggest abscess, may simply be postoperative change. Remains on TPN, electrolytes stable. Good urine output per ostomy but continues to have high volume output per NG. Output significantly higher than input, weight down, ongoing tachycardia--> 1 L fluid bolus this a.m. and continue normal saline at 100 mL per hour. 2 units PRBCs matched preoperatively; one being given prior to surgery for hemoglobin 7.4. 03/02/18 s/p ex lap with placement of drains by Dr. Hills. Febrile before surgery. WBC up post-op. Wound cx growing GPC, GNR, GPR. Continue Zosyn Remains on TPN, reduce K+. Good urine output. Output per NG down. Continued tachycardia. Continue IVF and treat pain. Output significantly higher than input, weight down, ongoing tachycardia--> 1 L fluid bolus this a.m. and continue normal saline at 100 mL per hour. Anticipate ongoing need for fluids to match fluid losses. 1 unit PRBCs given 03/01. Total of 4 units transfused Ferrlecit dose given 02/25, plan to repeat dose 03/04. Discussed with nursing who provide supplemental history; mother updated. Prognosis guarded. 03/03/18 s/p ex lap 03/01 with placement of drains by Dr. Hills. Afebrile and WBC down. Wound cx growing GPC, GNR, GPR. Continue Zosyn and fluconazole Continue TPN, K+ improved. Good urine output. Output per NG and ostomy down since 03/01 ex lap. Continued tachycardia. Continue IVF and treat pain. ? whether anxious. Trial of Ativan Anticipate ongoing need for fluids to match fluid losses. 1 unit PRBCs given 03/01. Total of 4 units transfused Ferrlecit dose given 02/25, plan to repeat dose 03/04. Discussed with nursing who provide supplemental history; mother updated. Prognosis guarded. 03/04/18 s/p ex lap 03/01 with placement of drains by Dr. Hills. Fever and WBC up slightly. Wound cx growing e coli, sensitive to Zosyn. Fluconazole. Check CXR Continue TPN, K+ improved. Good urine output. Output per NG and ostomy down since 03/01 ex lap. Continued tachycardia. Hold LR as patient with trace edema. Start fentanyl patch for pain. He got 28 mg iv morphine yesterday. Starting fentanyl at 12mcg d /t possible interaction with Fluconazole. 1 unit PRBCs given 03/01. Total of 4 units transfused Ferrlicit dose given 02/25, plan to repeat dose 03/04. Discussed with nursing who provide supplemental history. Encourage activity. Prognosis guarded 03/05/18 s/p ex lap 03/01 with placement of drains by Dr. Hills. Wound VAC. Fever. WBC down slightly. Wound cx growing e coli, sensitive to Zosyn. Fluconazole. Check CXR. Continue TPN, decrease Mg. Good urine output. Output per NG up yesterday. Continued tachycardia. Holding LR as patient with trace edema. Appears more comfortable with fentanyl patch for pain. Platelets trending up. Check inflammatory markers. If continued fever, consider repeating CT Encourage activity. 03/06/18 Temp elevations to 100.5 - 101.7. Persistent tachycardia in 130s. BP 100's. WBC with gradual trend down to 17.9 - was 25.0 on 03/02. Platelets trending up to 971 (was 407 on 03/02). Electrolytes and renal status stable - on TPN. Will continue with Zosyn and Diflucan for antimicrobial coverage. Continue with wound vac and drains. CT scan of ab/pelvis to exclude occult abscess formation. Encourage continued activities. 03/07/18 WBC with gradual trend down to 14.3 - was 17.9 on yesterday. Platelets elevated at 961 (was 971 yesterday). Hemoglobin persistently low at 7.6; with continued tachycardia will give 1 unit of pRBC. Electrolytes and renal status stable - on TPN. Will continue with Zosyn for antimicrobial coverage; Dr Gomez added Vancomycin and increased Diflucan to 200mg daily. Continue with wound vac and drains. CT scan of ab/pelvis showed possible new abscess formation in the suprapubic region and omental area. Encourage continued activities. 03/08/18 WBC with increase back to 17.1. HGB increased to 8.2 post transfusion yesterday. Pharm recommended changing Zosyn to Meropenem - did agree. Continue vancomycin and Diflucan. Will continue with TPN for nutritional support - NS bolus of 500cc to help with tachycardia. Continue with pain control. 03/09/18 Temp elevations continue. WBC with decrease to 15.6, but increased bands noted. Renal status and electrolytes stable. Continues of Meropenem, vancomycin, and Diflucan for coverage. Dr Gomez plan repeating CT scan with contrast (though NG) tomorrow to check for bowel function and further abscesses. TPN for nutritional and volume support. Continue with MS for pain, add Aspercreme for muscle discomfort.
[2018-03-09] MEDS: ACETAMINOPHEN 650 MG SUPPOSITORY PR PRN (19:19)
[2018-03-09] MEDS: SALINE FLUSH 10ml SYRINGE IVF PRN (19:34)
[2018-03-09] MEDS: NS FLUSH BAG 500ml IV PRN (19:39)
--- NOTE | 2018-03-09 19:46 | Progress Note ---
DATE OF SERVICE 03/09/2018 FINDINGS Cosmo was seen this evening on rounds. He remains critically ill. PHYSICAL EXAM VITAL SIGNS: This evening temperature 102.2, pulse 160, respirations 20, blood pressure 100/59, SAO2 94% on room air. CHEST: Clear to auscultation bilaterally. HEART: Regular rate and rhythm. Normal S1 and S2 without gallops, murmurs or clicks. ABDOMEN: Wound VAC is in place and functioning. [place] drains were evaluated. Minimal output within drains coming forth from the right upper quadrant. Perhaps 5-10 mL of purulent material was noted within drains within left upper quadrant. Palpation of the abdomen today reveals it to be softer. Patient does not appear to be grimacing with palpation this evening. Nursing states that he did have a fair amount of stool present within the colostomy and that this evening his colostomy appliance was reapplied. Currently there is no stool or air within the ostomy appliance. No evidence for rebound or peritoneal signs upon palpation. LABORATORY/RADIOGRAPHIC EVALUATION The patient's white count has slightly improved at 15,000. Thrombocytosis has improved slightly to 788. Hemoglobin is overall stable but slightly down at 7.6. Does have an increasing left shift with 18% bands today. CMP was obtained and found to be without marked abnormalities. ASSESSMENT 32-year-old gentleman with history of colonic perforation resulting in marked fecal peritonitis. Patient status post exploratory laparotomy with partial colonic resection with creation of end colostomy, Mendoza's pouch, development of postoperative intraabdominal abscess requiring repeat exploratory laparotomy with drainage of multiple abdominal abscesses and placement of additional peritoneal drains. The patient remains critically ill. PLAN I did miss the patient's parents this evening. I have missed the family members over the last three to four days. They have not been present when I have rounded. I did contact the father this evening and informed the father that Cosmo remains critically ill and has not shown unfortunately much improvement given the fact that he continues to be markedly tachycardic and febrile. Will go ahead and repeat a CT scan tomorrow with both oral and IV contrast to see if he isn't developing any additional intraabdominal abscesses which could explain his ongoing tachycardia, fever and bandemia. We have made antibiotic changes to broaden the spectrum/coverage. Will continue to follow the patient closely. Await CT scan results and proceed accordingly. SYLVAIN
[2018-03-10] MEDS: ACETAMINOPHEN 650 MG SUPPOSITORY PR PRN ×4 (00:13→16:15)
[2018-03-10] MEDS: MORPHINE SULFATE 4mg INJECTION IVP PRN ×3 (00:22→17:45)
[2018-03-10] MEDS: SALINE FLUSH 10ml SYRINGE IVF PRN ×2 (00:22→04:17)
[2018-03-10] MEDS: CLINIMIX-E 5%/20% TPN - STANDARD FORMULA IV SCH (04:16)
[2018-03-10] MEDS: MEROPENEM 1 GM in NS 100 ML IV SCH ×3 (04:16→19:17)
[2018-03-10] MEDS: VANCOMYCIN 1,250 MG in NS 250 ML IV SCH (05:30)
[2018-03-10] MEDS: INSULIN ASPART 100unit/ml INJECTION SQ PRN (06:09)
[2018-03-10] MEDS: ALBUTEROL/IPRATROPIUM 2.5mg-0.5mg/3ml NEB IPPB SCH ×3 (06:30→18:47)
--- NOTE | 2018-03-10 07:25 | Pharmacy Consult-TPN/PPN ---
Pharmacy Consult-TPN/PPN - Laboratory Information Chemistry Turbidity < 20 (0-20) 03/10/18 04:34 Sodium 133 MEQ/L (136-146) L 03/10/18 04:34 Potassium 4.2 MEQ/L (3.6-5) 03/10/18 04:34 Chloride 102 MEQ/L (98-107) 03/10/18 04:34 Carbon Dioxide 24 MEQ/L (22-30) 03/10/18 04:34 Anion Gap 7 meq/L (5-15) 03/10/18 04:34 BUN 14.0 MG/DL (9-20) 03/10/18 04:34 Creatinine 0.5 mg/dL (0.8-1.5) L 03/10/18 04:34 GFR Calculation 195 03/10/18 04:34 BUN/Creatinine Ratio 28 RATIO (6-26) H 03/10/18 04:34 Glucose 100 MG/DL (75-110) 03/10/18 04:34 Glucometer 156 mg/dL (65-110) 03/10/18 06:06 Calculated Osmolality 257 MOSM/KG (261-280) L 03/10/18 04:34 Calcium 7.6 MG/DL (8.4-10.2) L 03/10/18 04:34 Ionized Calcium [place] 1.11 MMOL/L (1.12-1.32) L 02/25/18 04:20 Phosphorus 3.6 MG/DL (2.5-4.5) 03/10/18 04:34 Magnesium 2.3 MG/DL (1.6-2.3) 03/10/18 04:34 Iron 11 ug/dL (49-181) L 02/20/18 20:07 TIBC 342 ug/dL (261-497) 02/20/18 20:07 % Saturation 3 % (13-59) L 02/20/18 20:07 Ferritin 2.44 ng/mL (17-464) L 02/20/18 20:07 Total Bilirubin 0.70 MG/DL (0.20-1.30) 03/09/18 04:16 Icterus Index < 2 (0-7) 03/10/18 04:34 AST 40 U/L (17-59) 03/09/18 04:16 ALT 31 U/L (1-50) 03/09/18 04:16 Alkaline Phosphatase 124 U/L (38-126) 03/09/18 04:16 C-Reactive Protein 172.0 mg/L (0-9) H 03/06/18 04:04 Total Protein 5.5 g/dL (6.3-8.2) L 03/09/18 04:16 Albumin 2.4 g/dL (3.5-5.0) L 03/09/18 04:16 Globulin 3.1 G/DL (2.4-3.6) 03/09/18 04:16 Albumin/Globulin Ratio 0.8 RATIO (1.1-2.2) L 03/09/18 04:16 Lipase 21 U/L (23-300) L 02/20/18 15:25 Plasma Lactate 1.3 MMOL/L (0.6-2.2) 02/24/18 04:13 Vitamin B12 367 pg/mL (239-931) 02/20/18 20:07 Procalcitonin < 0.05 NG/ML 02/21/18 04:11 Specimen Hemolysis < 15 (0-25) 03/10/18 04:34 Intake and Output 03/09/18 03/10/18 03/11/18 06:59 06:59 06:59 Intake Total 4274.334 / 4274.334 3792.000 / 3792.000 163.333 / 163.333 Output Total 3772 / 3772 2959 / 2959 170 / 170 Balance 502.334 / 502.334 833.000 / 833.000 -6.667 / -6.667 Weight 61.8 kg 53.5 kg Intake: IV 4094.334 / 4094.334 3702.000 / 3702.000 163.333 / 163.333 Fat Emulsion 20% 250 ml @ 25 250.000 / 250.000 250.0 / 250.0 mls/hr IV 1600 [facility] Rx#: [id number] Fluconazole Pb 200 mg In 100 ml 100 / 100 100 / 100 @ 100 mls/hr IV Q24H [facility] Rx#: [id number] Meropenem 1 gm In Ns 100 ml @ 300 / 300 300 / 300 200 mls/hr IV Q8H [facility] Rx#: [id number] Multi-Vit Infusion 10 ml Multi 2116 / 2116 2195.333 / 2195.333 100 / 100 -Trace Elements 1 ml In TPN - Standard Formula 2,000 ml @ 100 mls/hr IV .[id number] [facility] Rx#: [id number] NS 500ml 500 ml @ 100 mls/hr IV 498.334 / 498.334 .Q5H [facility] Rx#:[id number] Vancomycin 1,250 mg In NS 250ml 330.000 / 330.000 856.667 / 856.667 63.333 / 63.333 250 ml @ 200 mls/hr IV Q8H [facility] Rx#:[id number] Vancomycin 2,000 mg In NS 500ml 500 / 500 500 ml @ 250 mls/hr IV Q8H [facility] Rx#:[id number] Oral 60 / 60 Intake, Gastric Tube Irrigant 120 / 120 90 / 90 Amount Left Nare 120 / 120 90 / 90 Output: Stool 250 / 250 125 / 125 Urine Amount (Catheter) 2675 / 2675 2205 / 2205 170 / 170 Gastric Drainage 775 / 775 530 / 530 Left Nare 775 / 775 530 / 530 Wound Drainage 72 / 72 99 / 99 Abdomen 20 / 20 40 / 40 Left Anterior Medial Abdomen 10 / 10 15 / 15 Left Lower Abdomen 5 / 5 8 / 8 Left Lower Lateral Abdomen 3 / 3 8 / 8 Right Anterior Medial Abdomen 22 / 22 10 / 10 Right Lower Lateral Abdomen 12 / 12 18 / 18 Other: Urine Appearance Clear Clear Clear Urine Color Dark Yellow Dark Yellow Dark Yellow Stool Color Brown Stool Consistency Liquid Drain Type Left Anterior Medial Abdomen Bulb Sparkill Bulb Sparkill Left Lower Abdomen Bulb Sparkill Bulb Sparkill Left Lower Lateral Abdomen Bulb Sparkill Bulb Sparkill Right Anterior Medial Abdomen Bulb Sparkill Bulb Sparkill Right Lower Lateral Abdomen Bulb Sparkill Bulb Sparkill - Consult Information Based on today's electrolytes, will add 20meq sodium phosphate to today's formula. Thank you.
[2018-03-10] MEDS ORDERED: IOHEXOL 300mg/ml 75ml INJECTION ONE (07:58)
[2018-03-10] MEDS ORDERED: SALINE FLUSH 10ml SYRINGE ONE (07:58)
--- NOTE | 2018-03-10 08:45 | Wound Care Progress Note ---
Wound Center Progress Note: Pt seen for wound/ostomy follow up. Pt resting in bed, pre-medicated. Seen with Brock LEACH, grandmother at bedside. Pt states he has pain in his abdomen. Ostomy pouching system changed. Stoma: large, red, upright, moist. Peristomal skin: WDNL. Pouch had small amount yellow drainage. Wound vac dressing changed to mid abdominal surgical incision. Wound vac canister has around 250 mL brownish yellow drainage. Surgical incision: Wound bed has red granulating tissue, scant slough at superior aspect of wound, small active sanguineous drainage. Periwound : blanchable erythema. Vac drape placed around incision, black foam placed into wound, and covered with vac drape. Foam collapsed without leaks, vac running at 125 mm Hg continuous pressure. NPWT vac changes q M/R. Change ostomy appliance PRN.
[2018-03-10] MEDS: ENOXAPARIN 40 MG/0.4 ML INJECTION SQ SCH (09:17)
[2018-03-10] MEDS: PANTOPRAZOLE 40 MG INJECTION IVP SCH (09:17)
--- NOTE | 2018-03-10 11:11 | CT Scan Report ---
Indication: abscesses. fevers PROCEDURE: CT abdomen pelvis w con: Encounter: Initial Comparison: March 06, 2018 Technique: Axial CT images were performed through the abdomen and pelvis after the administration of intravenous contrast. Coronal and sagittal two-dimensional reformats. Automated Exposure Control and Iterative Reconstruction dose reducing techniques were utilized. Contrast: Omnipaque 300 73 mL Findings: The right lung base is clear. Moderate left pleural effusion with compressive atelectasis of the left lower lobe. The subdiaphragmatic abscess on the left side continues to enlarge. This has a drain extending through the posterior and medial aspect of the abscess cavity. The abscess measures 11.7 x 7.7 x 4.5 cm in size compared to 10.7 x 6.7 x 3 cm on the prior study. Multiple foci of gas remain with peripheral rim enhancement. The liver appears grossly normal. There is a drain along the right hepatic margin again seen without significant fluid along the course of the drain. There is an additional right-sided drain extending around the posterior margin of the bladder with the tip terminating in the left pelvis, also without significant fluid collection seen along its course. The spleen is otherwise normal in appearance. The pancreas appears normal. The area of peripancreatic abscess interposed between the pancreas, spleen and a prominent loop of jejunum is also larger. This now measures 6.6 x 4.5 cm on axial image #39 compared to 6.9 x 3.3 cm previously. There is a drain within this region of abscess with scattered foci of gas. Additional rim-enhancing abscess along the left paracolic gutter is noted with a surgical drain in place. This region of abscess measures 3.7 x 12.5 x 3.5 cm in size and has also increased in volume since the comparison. The adrenal glands and kidneys appear normal. There are presumably reactive central mesenteric lymph nodes that are slightly more prominent. Continued small bowel dilatation up to 5 cm in diameter, similar to the prior study without evidence of acute obstruction. Contrast material is present within the right colon. Right lower quadrant colostomy noted. The prior areas of extraluminal fluid and gas near the superior margin of the bladder are less prominent on today's exam without a well-defined fluid collection currently. The region of the fluid in the ventral abdomen omental area is also smaller, now measuring 3.2 x 3.4 cm on sagittal image #34 compared to 4.1 x 4.1 cm. Bladder remains thick-walled with a Mcdermott catheter in place. Wall thickening of the J pouch, similar to the prior study. Bone windows are unchanged. Impression: 1. Enlarging left subdiaphragmatic, paracolic gutter and peripancreatic abscesses with appropriately positioned drains in place. Recommend correlation for drain function and drainage outputs. Perhaps the abscess material is too thick or viscus for adequate drainage. 2. There is no significant fluid or abscess along the right-sided drains. 3. The ventral regions of phlegmon or abscess have improved since the prior study. No significant undrained abscess appreciated. .
--- NOTE | 2018-03-10 15:22 | Pharmacy Consult-Antibiotics ---
Pharmacy Consult-Vancomycin - Laboratory Information WBC 16.1 T/MM3 (4.5-11.0) H 03/10/18 04:34 BUN 14.0 MG/DL (9-20) 03/10/18 04:34 Creatinine 0.5 mg/dL (0.8-1.5) L 03/10/18 04:34 Procalcitonin < 0.05 NG/ML 02/21/18 04:11 Vancomycin Trough 10.21 ug/mL (15-20) L 03/10/18 04:34 - Consult Information VANCOMYCIN CONSULT: day 4 goal trough range= 15 to 20 mcg/ml Vancomycin Trough = 10.21 mcg/ml. Today's SCr = 0.5 mg/dl. Adjust dose to Vancomycin 1,000 mg IV q6hrs. Will continue to monitor and make adjustments accordingly. Thank you, Malka Castro [facility]
--- NOTE | 2018-03-10 15:54 | Progress Note ---
- Date 03/10/18 Subjective: F/U: Toxic Megacolon, Perforation of splenic flexure, Multiple areas of intraabdominal abscess formation About the same. Dangles legs some with nursing, minimal activities. HR running 130-150s. Temp elevations in 101 range. Urine output stable. Respiratory status stable. CT scan showing drain in abscess, but abscess increasing in size. Objective Vital signs: Temperature 101.0 F H 03/10/18 12:00 Pulse Rate 143 H 03/10/18 13:45 Respiratory Rate 20 03/10/18 14:00 Blood Pressure 103/57 03/10/18 13:05 Pulse Oximetry 97 03/10/18 13:45 Rhythm: Sinus Tachycardia Height/Weight/BMI: Height 1.75 m Weight 64.6 kg Body Mass Index 22.5 - Constitutional Present: well developed, thin - Routine HEENT Exam Head: Present: normocephalic, atraumatic Eye: Present: EOMI, PERRL ENT: Present: mucous membranes moist - Routine Respiratory Exam Present: decreased breath sounds (Basilar bluinting). Absent: wheezes, crackles - Routine Cardiovascular Exam Present: no murmur, tachycardia (regular) - Routine Abdominal Exam Present: non distended. Absent: normoactive bowel sounds (decreased bowel sounds) - Routine Extremities Exam Present: edema (+1 BLE), pulses intact. Absent: cyanosis, clubbing - Routine Skin Exam Present: warm. Absent: dry (Moist) - Routine Neurological Exam Present: alert, hearing grossly intact. Absent: moving all extremities - Routine Psychiatric Exam Present: unable to assess Results - Labs CBC & Chem 7: 03/10/18 04:34 03/10/18 04:34 Microbiology Results: Microbiology 03/01/18 18:56 Abdomen, Left Upper Gram Stain - Final 03/01/18 18:56 Abdomen, Left Upper Surgical Culture - Final Escherichia coli Anaerobic Gram-Negative Bhanu Anaerobic Gram-Positive Cocci 02/23/18 20:15 Peripheral/Iv Start Gram Stain - Final Not performed 02/23/18 20:15 Peripheral/Iv Start Blood Culture - Final No Growth After 5 Days 02/23/18 20:05 Peripheral/Iv Start Gram Stain - Final Not performed 02/23/18 20:05 Peripheral/Iv Start Blood Culture - Final No Growth After 5 Days 02/20/18 20:07 Peripheral/Iv Start Blood Culture - Final No Growth After 5 Days Assessment and Plan (1) Megacolon Problem details: Toxic megacolon Current visit: Yes Status: Acute (2) Perforation of colon Problem details: Perforation of the splenic flexure due to ischemic changes Current visit: Yes Status: Acute Assessment and Plan: Assessment 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 WBC 16.4. Renal status and electrolytes stable. Little change in overall status. CT ab/pelvis shown abscess with drain in place, however abscess has increased in size. Sx working to have drains flushed. Continues on Meropenem, vancomycin, and Diflucan for coverage. TPN for nutritional and volume support. Will give 500cc NS bolus to help improve BP. Continue pain control. Repeat BMP and Phos tomorrow due to TPN. Will repeat CBC due to leukocytosis/ thrombocytosis. Discussed case with CCU nursing and Family. Time spent with patient care 25 minutes. DVT Prophylaxis: SCD's, Lovenox Resuscitation Status: Full Code - Time spent with patient Time with patient PN: 25 minutes - Physician Narrative Physician: Daniel Stevens MD Narrative: Date: 03/10/18 Time: 1551 Hospital Course Summary Disclaimer: The visit summary below is not to be considered part of the above Progress Note. Hospital Course: 02/20/18 Admit, CCU. Bowel rest - NPO. Cont IVF - 1/2 NS with Na of 144. Consult Dr. Gomez for mgt. Sx management with Protonix, morphine, Zofran. Cont IVF for tachycardia; sepsis. Repeat lactate. Cont Zosyn for bowel coverage. Follow BC results. Iron w/u in progress. Type & screen ordered. D/W with Dr. Stevens and RN. 02/22/18 Gastrografin enema 02/21 with copious stool resulting. However, still with stool in rectal vault. Deferring further management to surgery team, await recs. Cont Zosyn given bandemia, tachycardia and concern for toxic megacolon. 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 Clinically deteriorating. Going for surgery for perforation/free air. Near total colectomy performed. Became hypotensive, tachycardic with rates into 180s. Aggressively fluid resuscitated. 02/24/18 UOP, tachycardia improved. Cont abx. Initiate TPN. Monitoring for return of bowel fxn. 02/25/18 Given Kphos Transfused another 1U PRBCs. Stopped LR. Surgery to trial clamping NGT. Intermittently febrile- rectal Tylenol. 02/26/18 Did have fever overnight. Has tolerated NGT clamping. No O2 requirements. No N/V /CP. Hasn't been able to perform IS very well. 02/27/18 Remains on TPN, tolerating limited oral liquids earlier today however resultant emesis has required resumption of NG suction. Good output per ostomy; 2400 mL output reported during prior 24-hour period. Hemoglobin drifting down, ongoing hypokalemia-post being reassessed this afternoon. Potassium increased and TPN but may require supplemental boluses due to potassium lost in stool and emesis. Persistent tachycardia-may require additional blood transfusion. Remains on Zosyn for peritonitis; chest x-ray with pleural effusion but no evidence of pneumonia. May require repeat CT abdomen/pelvis to exclude intra-abdominal abscess. 02/28/18 Remains on TPN, electrolytes stable. Good urine output per ostomy but continues to have high volume output per NG. Output significantly higher than input, weight down, ongoing tachycardia--> 1 L fluid bolus tonight. Anticipate ongoing need for fluids to match fluid losses. CT abdomen/pelvis discussed with radiology this evening and subsequently with Dr. Hills; will review further with radiology tomorrow to determine if drainage can be performed of the subphrenic abscess percutaneously or if surgical drainage/washout will be needed due to presence of multiple smaller fluid collections suggestive of early abscesses. Dr. Hills notified patient 's parents of findings. Hemoglobin continues to drift down very slowly, may be slightly hemoconcentrated at present. Type and screen in a.m. Anticipating transfusion in the next 1-2 days. 03/01/18 OP Day - Exploratory laparotomy, drainage of multiple intraabdominal abscesses, fecal disimpaction, intraoperative flexible proctoscopy. Subdiaphragmatic abscess and left upper quadrant-discussed with radiology and message subsequently relayed to Dr. Hills regarding potential risk of percutaneous drainage. Patient tenably scheduled to return to the operating room later today. Several very small extensive gas in the pelvis without clear room enhancement to suggest abscess, may simply be postoperative change. Remains on TPN, electrolytes stable. Good urine output per ostomy but continues to have high volume output per NG. Output significantly higher than input, weight down, ongoing tachycardia--> 1 L fluid bolus this a.m. and continue normal saline at 100 mL per hour. 2 units PRBCs matched preoperatively; one being given prior to surgery for hemoglobin 7.4. 03/02/18 s/p ex lap with placement of drains by Dr. Hills. Febrile before surgery. WBC up post-op. Wound cx growing GPC, GNR, GPR. Continue Zosyn Remains on TPN, reduce K+. Good urine output. Output per NG down. Continued tachycardia. Continue IVF and treat pain. Output significantly higher than input, weight down, ongoing tachycardia--> 1 L fluid bolus this a.m. and continue normal saline at 100 mL per hour. Anticipate ongoing need for fluids to match fluid losses. 1 unit PRBCs given 03/01. Total of 4 units transfused Ferrlecit dose given 02/25, plan to repeat dose 03/04. Discussed with nursing who provide supplemental history; mother updated. Prognosis guarded. 03/03/18 s/p ex lap 03/01 with placement of drains by Dr. Hills. Afebrile and WBC down. Wound cx growing GPC, GNR, GPR. Continue Zosyn and fluconazole Continue TPN, K+ improved. Good urine output. Output per NG and ostomy down since 03/01 ex lap. Continued tachycardia. Continue IVF and treat pain. ? whether anxious. Trial of Ativan Anticipate ongoing need for fluids to match fluid losses. 1 unit PRBCs given 03/01. Total of 4 units transfused Ferrlecit dose given 02/25, plan to repeat dose 03/04. Discussed with nursing who provide supplemental history; mother updated. Prognosis guarded. 03/04/18 s/p ex lap 03/01 with placement of drains by Dr. Hills. Fever and WBC up slightly. Wound cx growing e coli, sensitive to Zosyn. Fluconazole. Check CXR Continue TPN, K+ improved. Good urine output. Output per NG and ostomy down since 03/01 ex lap. Continued tachycardia. Hold LR as patient with trace edema. Start fentanyl patch for pain. He got 28 mg iv morphine yesterday. Starting fentanyl at 12mcg d /t possible interaction with Fluconazole. 1 unit PRBCs given 03/01. Total of 4 units transfused Ferrlicit dose given 02/25, plan to repeat dose 03/04. Discussed with nursing who provide supplemental history. Encourage activity. Prognosis guarded 03/05/18 s/p ex lap 03/01 with placement of drains by Dr. Hills. Wound VAC. Fever. WBC down slightly. Wound cx growing e coli, sensitive to Zosyn. Fluconazole. Check CXR. Continue TPN, decrease Mg. Good urine output. Output per NG up yesterday. Continued tachycardia. Holding LR as patient with trace edema. Appears more comfortable with fentanyl patch for pain. Platelets trending up. Check inflammatory markers. If continued fever, consider repeating CT Encourage activity. 03/06/18 Temp elevations to 100.5 - 101.7. Persistent tachycardia in 130s. BP 100's. WBC with gradual trend down to 17.9 - was 25.0 on 03/02. Platelets trending up to 971 (was 407 on 03/02). Electrolytes and renal status stable - on TPN. Will continue with Zosyn and Diflucan for antimicrobial coverage. Continue with wound vac and drains. CT scan of ab/pelvis to exclude occult abscess formation. Encourage continued activities. 03/07/18 WBC with gradual trend down to 14.3 - was 17.9 on yesterday. Platelets elevated at 961 (was 971 yesterday). Hemoglobin persistently low at 7.6; with continued tachycardia will give 1 unit of pRBC. Electrolytes and renal status stable - on TPN. Will continue with Zosyn for antimicrobial coverage; Dr Gomez added Vancomycin and increased Diflucan to 200mg daily. Continue with wound vac and drains. CT scan of ab/pelvis showed possible new abscess formation in the suprapubic region and omental area. Encourage continued activities. 03/08/18 WBC with increase back to 17.1. HGB increased to 8.2 post transfusion yesterday. Pharm recommended changing Zosyn to Meropenem - did agree. Continue vancomycin and Diflucan. Will continue with TPN for nutritional support - NS bolus of 500cc to help with tachycardia. Continue with pain control. 03/09/18 Temp elevations continue. WBC with decrease to 15.6, but increased bands noted. Renal status and electrolytes stable. Continues of Meropenem, vancomycin, and Diflucan for coverage. Dr Gomez plan repeating CT scan with contrast (though NG) tomorrow to check for bowel function and further abscesses. TPN for nutritional and volume support. Continue with MS for pain, add Aspercreme for muscle discomfort. 03/10/18 Temp elevations continue. WBC 16.4. Renal status and electrolytes stable. Little change in overall status. CT ab/pelvis shown abscess with drain in place, however abscess has increased in size. Sx working to have drains flushed. Continues on Meropenem, vancomycin, and Diflucan for coverage. TPN for nutritional and volume support. Will give 500cc NS bolus to help improve BP.
[2018-03-10] MEDS: FAT EMULSION 20% 250 ML IV SCH (15:58)
[2018-03-10] MEDS: FLUCONAZOLE PB 200 MG/100 ML BAG IV SCH (17:56)
--- NOTE | 2018-03-10 18:30 | Progress Note ---
DATE OF SERVICE 03/10/2018 FINDINGS Cosmo was seen today on rounds. He continues to run intermittent fevers. Earlier today his temperature was 102.2. PHYSICAL EXAM VITAL SIGNS: Last recorded vitals include temperature 101.5, remains tachycardic with a pulse of 143. Respirations 20, blood pressure 103/57. CHEST: Clear to auscultation bilaterally. HEART: Regular rate and rhythm. Normal S1 and S2 without gallops, murmurs or clicks. ABDOMEN: Wound VAC is in place along prior midline incision and functioning. No leak is detected. Multiple drains are exiting from the left upper quadrant and right upper quadrant. Earlier today when I had noted that the CT scan did reveal an increasing abscess I began to have the staff irrigate the Jose- Almazan drains. This evening there does appear to be more purulent-like material within the drains coming forth from the left upper quadrant. Palpation of the abdomen reveals it to be soft with minimal tenderness. Stool was present within his colostomy within the right lower quadrant. No navid peritoneal signs. LABORATORY/RADIOGRAPHIC EVALUATION The patient had a CBC today and his white count remains elevated at 16,000. Bandemia is improved at 6%. BMP obtained and found to be without marked abnormalities. ASSESSMENT Given his ongoing fever and tachycardia I had elected to proceed with a repeat CT scan. Unfortunately the patient is found to have an enlarging left subdiaphragmatic abscess which is about 12 cm in greatest dimension. One can see the drain within the middle of this abscess. There are multiple air bubbles within this abscess cavity just cephalad to the spleen and beneath the left hemidiaphragm. One can also see a component of some atelectasis of the left lung with an associated left pleural effusion. Additionally, along the tail of pancreas there is a separate abscess which measures now about 7 cm in dimension. There has been some improvement of the ventral regions where a prior phlegmon or abscess was present. ASSESSMENT 32-year-old gentleman with history for colonic perforation resulting in gross fecal peritonitis. 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 Patient with the misfortune of developing recurrent abscesses. The patient remains critically ill. PLAN Following his CT scan finding today I elected to go ahead and begin to have staff flush the Jose-Almazan drains exiting from the left upper quadrant. The drains are indeed in the middle of these abscesses. The drains are functioning. Perhaps the material within the abscess is tenacious enough or viscus enough that it is not allowing to be adequately drained. I do feel repeat laparotomy would be fraught with significant difficulty given the fact that he has had two prior laparotomies. Hopefully while flushing the drains we begin to see increased output of the purulent material and some resolution of the abscesses. If this does not result in any improvement I may try to attempt to replace the drains percutaneously over a guidewire. As a last resort, if the above measures do not result in some improvement will discuss with family about proceeding with repeat laparotomy with repeat drainage of multiple abscesses. I did discuss case with Radiology and the radiologist did not feel that these abscesses would be amendable to percutaneous drainage technique given their location. Furthermore, there are several large 19-[place] drains within the current abscess cavity. Will continue with ongoing broad-spectrum antibiotics, hyperalimentation and close monitoring. SYLVAIN
[2018-03-10] MEDS: KETOROLAC 30 MG/ML INJECTION IVP PRN (21:40)
[2018-03-11] MEDS: CLINIMIX-E 5%/20% TPN - STANDARD FORMULA IV SCH ×3 (00:45→23:46)
[2018-03-11] MEDS ORDERED: ALTEPLASE (Cathflo*) 2mg INJECTION IV ONE ×2 (00:53→00:54)
[2018-03-11] MEDS: SALINE FLUSH 10ml SYRINGE IVF PRN ×3 (01:00→23:46)
[2018-03-11] MEDS: MEROPENEM 1 GM in NS 100 ML IV SCH ×3 (04:25→20:00)
[2018-03-11] MEDS: MORPHINE SULFATE 4mg INJECTION IVP PRN ×3 (04:36→22:21)
[2018-03-11] MEDS: ALBUTEROL/IPRATROPIUM 2.5mg-0.5mg/3ml NEB IPPB SCH ×3 (06:53→19:33)
--- NOTE | 2018-03-11 07:35 | Pharmacy Consult-Antibiotics ---
Pharmacy Consult-Vancomycin - Laboratory Information WBC 14.8 T/MM3 (4.5-11.0) H 03/11/18 04:22 BUN 14.0 MG/DL (9-20) 03/10/18 04:34 Creatinine 0.5 mg/dL (0.8-1.5) L 03/10/18 04:34 Procalcitonin < 0.05 NG/ML 02/21/18 04:11 Vancomycin Trough 22.29 ug/mL (15-20) H* 03/11/18 04:21 - Consult Information VANCOMYCIN CONSULT: Vancomycin Trough (Random) = 22.3 mcg/ml. Today's SCr = 0.5 mg/dl. Midnight dose hung late and trough drawn early. Will continue Vancomycin 1,000 mg IV q6hrs. Will continue to monitor and make adjustments accordingly. Thank you.
[2018-03-11] MEDS: ENOXAPARIN 40 MG/0.4 ML INJECTION SQ SCH (08:01)
[2018-03-11] MEDS: ACETAMINOPHEN 650 MG SUPPOSITORY PR PRN (08:01)
[2018-03-11] MEDS: PANTOPRAZOLE 40 MG INJECTION IVP SCH (08:01)
--- NOTE | 2018-03-11 08:54 | Pharmacy Consult-TPN/PPN ---
Pharmacy Consult-TPN/PPN - Laboratory Information Chemistry Turbidity < 20 (0-20) 03/10/18 04:34 Sodium 133 MEQ/L (136-146) L 03/10/18 04:34 Potassium 4.2 MEQ/L (3.6-5) 03/10/18 04:34 Chloride 102 MEQ/L (98-107) 03/10/18 04:34 Carbon Dioxide 24 MEQ/L (22-30) 03/10/18 04:34 Anion Gap 7 meq/L (5-15) 03/10/18 04:34 BUN 14.0 MG/DL (9-20) 03/10/18 04:34 Creatinine 0.5 mg/dL (0.8-1.5) L 03/10/18 04:34 GFR Calculation 195 03/10/18 04:34 BUN/Creatinine Ratio 28 RATIO (6-26) H 03/10/18 04:34 Glucose 100 MG/DL (75-110) 03/10/18 04:34 Glucometer 144 mg/dL (65-110) 03/11/18 06:16 Calculated Osmolality 257 MOSM/KG (261-280) L 03/10/18 04:34 Calcium 7.6 MG/DL (8.4-10.2) L 03/10/18 04:34 Ionized Calcium [place] 1.11 MMOL/L (1.12-1.32) L 02/25/18 04:20 Phosphorus 3.6 MG/DL (2.5-4.5) 03/10/18 04:34 Magnesium 2.3 MG/DL (1.6-2.3) 03/10/18 04:34 Iron 11 ug/dL (49-181) L 02/20/18 20:07 TIBC 342 ug/dL (261-497) 02/20/18 20:07 % Saturation 3 % (13-59) L 02/20/18 20:07 Ferritin 2.44 ng/mL (17-464) L 02/20/18 20:07 Total Bilirubin 0.70 MG/DL (0.20-1.30) 03/09/18 04:16 Icterus Index < 2 (0-7) 03/10/18 04:34 AST 40 U/L (17-59) 03/09/18 04:16 ALT 31 U/L (1-50) 03/09/18 04:16 Alkaline Phosphatase 124 U/L (38-126) 03/09/18 04:16 C-Reactive Protein 172.0 mg/L (0-9) H 03/06/18 04:04 Total Protein 5.5 g/dL (6.3-8.2) L 03/09/18 04:16 Albumin 2.4 g/dL (3.5-5.0) L 03/09/18 04:16 Globulin 3.1 G/DL (2.4-3.6) 03/09/18 04:16 Albumin/Globulin Ratio 0.8 RATIO (1.1-2.2) L 03/09/18 04:16 Lipase 21 U/L (23-300) L 02/20/18 15:25 Plasma Lactate 1.3 MMOL/L (0.6-2.2) 02/24/18 04:13 Vitamin B12 367 pg/mL (239-931) 02/20/18 20:07 Procalcitonin < 0.05 NG/ML 02/21/18 04:11 Specimen Hemolysis < 15 (0-25) 03/10/18 04:34 Intake and Output 03/10/18 03/11/18 03/12/18 06:59 06:59 06:59 Intake Total 3792.000 / 3792.000 4272.667 / 4272.667 100 / 100 Output Total 2959 / 2959 3427 / 3427 110 / 110 Balance 833.000 / 833.000 845.667 / 845.667 -10 / -10 Weight 53.5 kg 64.6 kg Intake: IV 3702.000 / 3702.000 4222.667 / 4222.667 100 / 100 Fat Emulsion 20% 250 ml @ 25 250.0 / 250.0 250.000 / 250.000 mls/hr IV 1600 [facility] Rx#: [id number] Fluconazole Pb 200 mg In 100 ml 100 / 100 100 / 100 @ 100 mls/hr IV Q24H [facility] Rx#: [id number] Meropenem 1 gm In Ns 100 ml @ 300 / 300 300 / 300 200 mls/hr IV Q8H [facility] Rx#: [id number] Multi-Vit Infusion 10 ml Multi 2195.333 / 2195.333 1837.667 / 1837.667 -Trace Elements 1 ml In TPN - Standard Formula 2,000 ml @ 100 mls/hr IV .Q20H7M [facility] Rx#: [id number] Multi-Vit Infusion 10 ml Multi 421.667 / 421.667 100 / 100 -Trace Elements 1 ml SODIUM PHOSPHATE (mEq) 20 meq In TPN - Standard Formula 2,000 ml @ 100 mls/hr IV .[id number] [facility] Rx#: [id number] NS 500ml 500 ml @ 166.6 mls/hr 500.000 / 500.000 IV .Q3H1M [facility] Rx#:[id number] Vancomycin 1,000 mg In NS 250ml 856.667 / 856.667 813.333 / 813.333 250 ml @ 250 mls/hr IV Q6H [facility] Rx#:[id number] Intake, Gastric Tube Irrigant 90 / 90 50 / 50 Amount Left Nare 90 / 90 50 / 50 Output: Stool 125 / 125 Urine Amount (Catheter) 2205 / 2205 2480 / 2480 110 / 110 Gastric Drainage 530 / 530 500 / 500 Left Nare 530 / 530 500 / 500 Wound Drainage 99 / 99 447 / 447 Abdomen 40 / 40 20 / 20 Left Anterior Medial Abdomen 15 / 15 230 / 230 Left Lower Abdomen 8 / 8 75 / 75 Left Lower Lateral Abdomen 8 / 8 42 / 42 Right Anterior Medial Abdomen 10 / 10 75 / 75 Right Lower Lateral Abdomen 18 / 18 5 / 5 Other: Urine Appearance Clear Clear Clear Urine Color Dark Yellow Straw Straw Drain Type Left Anterior Medial Abdomen Bulb [place] Bulb [place] Left Lower Abdomen Bulb [place] Left Lower Lateral Abdomen Bulb [place] Right Anterior Medial Abdomen Bulb [place] Right Lower Lateral Abdomen Bulb [place] Bulb [place] - Consult Information We will continue same TPN formula. BMP and phos ordered for 03/12/2018. (no electrolytes ordered for today).
--- NOTE | 2018-03-11 09:40 | Progress Note ---
- Date 03/11/18 Subjective: Febrile again this morning to 102.3. RN reports increased drainage from left drain. Heart rate in 150's, sinus tach. Patient has no new complaints. Objective Vital signs: Temperature 101.0 F H 03/11/18 04:00 Pulse Rate 152 H 03/11/18 04:00 Respiratory Rate 18 03/11/18 08:02 Blood Pressure 102/58 03/11/18 04:00 Pulse Oximetry 100 03/11/18 04:00 Rhythm: Sinus Tachycardia Height/Weight/BMI: Height 5 ft 9 in Weight 64.6 kg Body Mass Index 22.5 - Constitutional Present: no acute distress - Routine Respiratory Exam Present: CTA bilaterally - Routine Cardiovascular Exam Present: tachycardia Comments: regular rhythm - Routine Abdominal Exam Comments: surgical drains in place X 3. Wound vac on midline incision. colostomy with brown drainage. - Routine Extremities Exam Present: no edema - Routine Skin Exam Present: intact, dry, warm - Routine Neurological Exam Present: alert, CN II-XII intact Results - Labs CBC & Chem 7: 03/11/18 04:22 03/10/18 04:34 Microbiology Results: Microbiology 03/01/18 18:56 Abdomen, Left Upper Gram Stain - Final 03/01/18 18:56 Abdomen, Left Upper Surgical Culture - Final Escherichia coli Anaerobic Gram-Negative Bhanu Anaerobic Gram-Positive Cocci 02/23/18 20:15 Peripheral/Iv Start Gram Stain - Final Not performed 02/23/18 20:15 Peripheral/Iv Start Blood Culture - Final No Growth After 5 Days 02/23/18 20:05 Peripheral/Iv Start Gram Stain - Final Not performed 02/23/18 20:05 Peripheral/Iv Start Blood Culture - Final No Growth After 5 Days 02/20/18 20:07 Peripheral/Iv Start Blood Culture - Final No Growth After 5 Days Assessment and Plan (1) Megacolon Problem details: Toxic megacolon Current visit: Yes Status: Acute (2) Perforation of colon Problem details: Perforation of the splenic flexure due to ischemic changes Current visit: Yes Status: Acute Assessment and Plan: Assessment 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 WBC trended down to 14. Renal status and electrolytes stable. Little change in overall status. CT ab/pelvis shown abscess with drain in place, however abscess has increased in size. Sx working to have drains flushed. Continues on Meropenem, vancomycin, and Diflucan for coverage. TPN for nutritional and volume support. Repeat 500cc NS bolus today and add metoprolol for tachycardia as BP allows. Continue pain control. Repeat BMP and Phos tomorrow due to TPN. Will repeat CBC due to leukocytosis/ thrombocytosis. Discussed case with CCU nursing. No family in room at the time of my visit. 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 - Physician Narrative Narrative: Date: 03/11/18 Time: 0935 Hospital Course Summary Disclaimer: The visit summary below is not to be considered part of the above Progress Note. Hospital Course: 02/20/18 Admit, CCU. Bowel rest - NPO. Cont IVF - 1/2 NS with Na of 144. Consult Dr. Gomez for mgt. Sx management with Protonix, morphine, Zofran. Cont IVF for tachycardia; sepsis. Repeat lactate. Cont Zosyn for bowel coverage. Follow BC results. Iron w/u in progress. Type & screen ordered. D/W with Dr. Stevens and RN. 02/22/18 Gastrografin enema 02/21 with copious stool resulting. However, still with stool in rectal vault. Deferring further management to surgery team, await recs. Cont Zosyn given bandemia, tachycardia and concern for toxic megacolon. 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 Clinically deteriorating. Going for surgery for perforation/free air. Near total colectomy performed. Became hypotensive, tachycardic with rates into 180s. Aggressively fluid resuscitated. 02/24/18 UOP, tachycardia improved. Cont abx. Initiate TPN. Monitoring for return of bowel fxn. 02/25/18 Given Kphos Transfused another 1U PRBCs. Stopped LR. Surgery to trial clamping NGT. Intermittently febrile- rectal Tylenol. 02/26/18 Did have fever overnight. Has tolerated NGT clamping. No O2 requirements. No N/V /CP. Hasn't been able to perform IS very well. 02/27/18 Remains on TPN, tolerating limited oral liquids earlier today however resultant emesis has required resumption of NG suction. Good output per ostomy; 2400 mL output reported during prior 24-hour period. Hemoglobin drifting down, ongoing hypokalemia-post being reassessed this afternoon. Potassium increased and TPN but may require supplemental boluses due to potassium lost in stool and emesis. Persistent tachycardia-may require additional blood transfusion. Remains on Zosyn for peritonitis; chest x-ray with pleural effusion but no evidence of pneumonia. May require repeat CT abdomen/pelvis to exclude intra-abdominal abscess. 02/28/18 Remains on TPN, electrolytes stable. Good urine output per ostomy but continues to have high volume output per NG. Output significantly higher than input, weight down, ongoing tachycardia--> 1 L fluid bolus tonight. Anticipate ongoing need for fluids to match fluid losses. CT abdomen/pelvis discussed with radiology this evening and subsequently with Dr. Hills; will review further with radiology tomorrow to determine if drainage can be performed of the subphrenic abscess percutaneously or if surgical drainage/washout will be needed due to presence of multiple smaller fluid collections suggestive of early abscesses. Dr. Hills notified patient 's parents of findings. Hemoglobin continues to drift down very slowly, may be slightly hemoconcentrated at present. Type and screen in a.m. Anticipating transfusion in the next 1-2 days. 03/01/18 OP Day - Exploratory laparotomy, drainage of multiple intraabdominal abscesses, fecal disimpaction, intraoperative flexible proctoscopy. Subdiaphragmatic abscess and left upper quadrant-discussed with radiology and message subsequently relayed to Dr. Hills regarding potential risk of percutaneous drainage. Patient tenably scheduled to return to the operating room later today. Several very small extensive gas in the pelvis without clear room enhancement to suggest abscess, may simply be postoperative change. Remains on TPN, electrolytes stable. Good urine output per ostomy but continues to have high volume output per NG. Output significantly higher than input, weight down, ongoing tachycardia--> 1 L fluid bolus this a.m. and continue normal saline at 100 mL per hour. 2 units PRBCs matched preoperatively; one being given prior to surgery for hemoglobin 7.4. 03/02/18 s/p ex lap with placement of drains by Dr. Hills. Febrile before surgery. WBC up post-op. Wound cx growing GPC, GNR, GPR. Continue Zosyn Remains on TPN, reduce K+. Good urine output. Output per NG down. Continued tachycardia. Continue IVF and treat pain. Output significantly higher than input, weight down, ongoing tachycardia--> 1 L fluid bolus this a.m. and continue normal saline at 100 mL per hour. Anticipate ongoing need for fluids to match fluid losses. 1 unit PRBCs given 03/01. Total of 4 units transfused Ferrlecit dose given 02/25, plan to repeat dose 03/04. Discussed with nursing who provide supplemental history; mother updated. Prognosis guarded. 03/03/18 s/p ex lap 03/01 with placement of drains by Dr. Hills. Afebrile and WBC down. Wound cx growing GPC, GNR, GPR. Continue Zosyn and fluconazole Continue TPN, K+ improved. Good urine output. Output per NG and ostomy down since 03/01 ex lap. Continued tachycardia. Continue IVF and treat pain. ? whether anxious. Trial of Ativan Anticipate ongoing need for fluids to match fluid losses. 1 unit PRBCs given 03/01. Total of 4 units transfused Ferrlecit dose given 02/25, plan to repeat dose 03/04. Discussed with nursing who provide supplemental history; mother updated. Prognosis guarded. 03/04/18 s/p ex lap 03/01 with placement of drains by Dr. Hills. Fever and WBC up slightly. Wound cx growing e coli, sensitive to Zosyn. Fluconazole. Check CXR Continue TPN, K+ improved. Good urine output. Output per NG and ostomy down since 03/01 ex lap. Continued tachycardia. Hold LR as patient with trace edema. Start fentanyl patch for pain. He got 28 mg iv morphine yesterday. Starting fentanyl at 12mcg d /t possible interaction with Fluconazole. 1 unit PRBCs given 03/01. Total of 4 units transfused Ferrlicit dose given 02/25, plan to repeat dose 03/04. Discussed with nursing who provide supplemental history. Encourage activity. Prognosis guarded 03/05/18 s/p ex lap 03/01 with placement of drains by Dr. Hills. Wound VAC. Fever. WBC down slightly. Wound cx growing e coli, sensitive to Zosyn. Fluconazole. Check CXR. Continue TPN, decrease Mg. Good urine output. Output per NG up yesterday. Continued tachycardia. Holding LR as patient with trace edema. Appears more comfortable with fentanyl patch for pain. Platelets trending up. Check inflammatory markers. If continued fever, consider repeating CT Encourage activity. 03/06/18 Temp elevations to 100.5 - 101.7. Persistent tachycardia in 130s. BP 100's. WBC with gradual trend down to 17.9 - was 25.0 on 03/02. Platelets trending up to 971 (was 407 on 03/02). Electrolytes and renal status stable - on TPN. Will continue with Zosyn and Diflucan for antimicrobial coverage. Continue with wound vac and drains. CT scan of ab/pelvis to exclude occult abscess formation. Encourage continued activities. 03/07/18 WBC with gradual trend down to 14.3 - was 17.9 on yesterday. Platelets elevated at 961 (was 971 yesterday). Hemoglobin persistently low at 7.6; with continued tachycardia will give 1 unit of pRBC. Electrolytes and renal status stable - on TPN. Will continue with Zosyn for antimicrobial coverage; Dr Gomez added Vancomycin and increased Diflucan to 200mg daily. Continue with wound vac and drains. CT scan of ab/pelvis showed possible new abscess formation in the suprapubic region and omental area. Encourage continued activities. 03/08/18 WBC with increase back to 17.1. HGB increased to 8.2 post transfusion yesterday. Pharm recommended changing Zosyn to Meropenem - did agree. Continue vancomycin and Diflucan. Will continue with TPN for nutritional support - NS bolus of 500cc to help with tachycardia. Continue with pain control. 03/09/18 Temp elevations continue. WBC with decrease to 15.6, but increased bands noted. Renal status and electrolytes stable. Continues of Meropenem, vancomycin, and Diflucan for coverage. Dr Gomez plan repeating CT scan with contrast (though NG) tomorrow to check for bowel function and further abscesses. TPN for nutritional and volume support. Continue with MS for pain, add Aspercreme for muscle discomfort. 03/10/18 Temp elevations continue. WBC 16.4. Renal status and electrolytes stable. Little change in overall status. CT ab/pelvis shown abscess with drain in place, however abscess has increased in size. Sx working to have drains flushed. Continues on Meropenem, vancomycin, and Diflucan for coverage. TPN for nutritional and volume support. Will give 500cc NS bolus to help improve BP. 03/11/18 Temp elevations continue. WBC trended down to 14. Renal status and electrolytes stable. Little change in overall status. CT ab/pelvis shown abscess with drain in place, however abscess has increased in size. Sx working to have drains flushed. Continues on Meropenem, vancomycin, and Diflucan for coverage. TPN for nutritional and volume support. Repeat 500cc NS bolus today and add metoprolol for tachycardia as BP allows. Continue pain control. Repeat BMP and Phos tomorrow due to TPN. Will repeat CBC due to leukocytosis/ thrombocytosis.
[2018-03-11] MEDS: METOPROLOL 5mg/5ml INJECTION IVP SCH ×2 (10:31→23:17)
--- NOTE | 2018-03-11 11:21 | Progress Note ---
DATE 03/11/2018 FINDINGS Cosmo was seen earlier this morning on rounds. He was more verbal this morning. He was requesting liquids. PHYSICAL EXAM VITAL SIGNS: The patient remains febrile with a T-max 103.0. This morning his temperature was 101. Remains tachycardic with a pulse of 152. Blood pressure remains stable at 102/58. AO2 100% on room air. HEENT: Normocephalic. Pupils are equally round and react to light and accommodation. CHEST: Clear to auscultation bilaterally. ABDOMEN: Visualization of the Jose-Almazan drains within the left upper quadrant does reveal significantly more purulent material within the drains. Minimal output from drains within the right upper quadrant. Palpation of the abdomen reveals tenderness within the left upper quadrant. No navid peritoneal sign is present. There has been a moderate amount of stool within his colostomy. LABORATORY/RADIOGRAPHIC EVALUATION The patient had a CBC today and his white count was 14.8, slightly down from yesterday at 16,000. Still has a left shift with 86% neutrophils. Vancomycin trough was also ordered per Pharmacy and found to be elevated at 22.2. ASSESSMENT 32-year-old male with history for colonic perforation resulting in massive fecal peritonitis, status post exploratory laparotomy, creation of end colostomy , Mendoza's pouch, misfortune of developing multiple intraabdominal abscesses requiring repeat exploratory laparotomy with drainage of abscesses and placement of multiple drains. The patient unfortunately has developed recurrent intraabdominal abscesses. PLAN It does appear that he has been putting out more purulent drainage through the Jose-Almazan drains after we began to irrigate them. He remains critically ill , but stable. It was my recommendation that we continue with current care and not proceed with repeat laparotomy at this time. Will continue to flush current drains which are within the abscesses noted on CT scan and hopefully the abscesses will begin to drain over the next 48 hours. If the above measures fail the patient may ultimately require repeat laparotomy. Will continue to follow closely. SYLVAIN
[2018-03-11] MEDS: FAT EMULSION 20% 250 ML IV SCH (15:03)
[2018-03-11] MEDS: KETOROLAC 30 MG/ML INJECTION IVP PRN (16:01)
[2018-03-11] MEDS: FLUCONAZOLE PB 200 MG/100 ML BAG IV SCH (16:42)
[2018-03-11] MEDS: METOCLOPRAMIDE 10mg/2ml INJECTION IVP PRN (19:48)
[2018-03-11] MEDS: NS FLUSH BAG 500ml IV PRN (20:02)
[2018-03-12] MEDS: KETOROLAC 30 MG/ML INJECTION IVP PRN ×3 (00:47→19:29)
[2018-03-12] MEDS: MEROPENEM 1 GM in NS 100 ML IV SCH ×3 (03:53→19:27)
[2018-03-12] MEDS: MORPHINE SULFATE 4mg INJECTION IVP PRN ×2 (07:59→18:10)
[2018-03-12] MEDS: ACETAMINOPHEN 650 MG SUPPOSITORY PR PRN (07:59)
[2018-03-12] MEDS: ALBUTEROL/IPRATROPIUM 2.5mg-0.5mg/3ml NEB IPPB SCH ×3 (08:21→20:25)
[2018-03-12] MEDS: ENOXAPARIN 40 MG/0.4 ML INJECTION SQ SCH (08:44)
[2018-03-12] MEDS: METOPROLOL 5mg/5ml INJECTION IVP SCH ×2 (08:44→20:39)
[2018-03-12] MEDS: PANTOPRAZOLE 40 MG INJECTION IVP SCH (08:44)
--- NOTE | 2018-03-12 08:45 | Pharmacy Consult-TPN/PPN ---
Pharmacy Consult-TPN/PPN - Laboratory Information Chemistry Turbidity < 20 (0-20) 03/12/18 07:03 Sodium 136 MEQ/L (136-146) 03/12/18 07:03 Potassium 3.9 MEQ/L (3.6-5) 03/12/18 07:03 Chloride 103 MEQ/L (98-107) 03/12/18 07:03 Carbon Dioxide 25 MEQ/L (22-30) 03/12/18 07:03 Anion Gap 8 meq/L (5-15) 03/12/18 07:03 BUN 16.0 MG/DL (9-20) 03/12/18 07:03 Creatinine 0.4 mg/dL (0.8-1.5) L 03/12/18 07:03 GFR Calculation 253 03/12/18 07:03 BUN/Creatinine Ratio 40 RATIO (6-26) H 03/12/18 07:03 Glucose 117 MG/DL (75-110) H 03/12/18 07:03 Glucometer 139 mg/dL (65-110) 03/11/18 23:37 Calculated Osmolality 264 MOSM/KG (261-280) 03/12/18 07:03 Calcium 7.7 MG/DL (8.4-10.2) L 03/12/18 07:03 Ionized Calcium [place] 1.11 MMOL/L (1.12-1.32) L 02/25/18 04:20 Magnesium 2.3 MG/DL (1.6-2.3) 03/10/18 04:34 Phosphorus 3.9 MG/DL (2.5-4.5) 03/12/18 07:03 Iron 11 ug/dL (49-181) L 02/20/18 20:07 TIBC 342 ug/dL (261-497) 02/20/18 20:07 % Saturation 3 % (13-59) L 02/20/18 20:07 Ferritin 2.44 ng/mL (17-464) L 02/20/18 20:07 Total Bilirubin 0.70 MG/DL (0.20-1.30) 03/09/18 04:16 AST 40 U/L (17-59) 03/09/18 04:16 Icterus Index < 2 (0-7) 03/12/18 07:03 ALT 31 U/L (1-50) 03/09/18 04:16 Alkaline Phosphatase 124 U/L (38-126) 03/09/18 04:16 C-Reactive Protein 172.0 mg/L (0-9) H 03/06/18 04:04 Total Protein 5.5 g/dL (6.3-8.2) L 03/09/18 04:16 Albumin 2.4 g/dL (3.5-5.0) L 03/09/18 04:16 Globulin 3.1 G/DL (2.4-3.6) 03/09/18 04:16 Albumin/Globulin Ratio 0.8 RATIO (1.1-2.2) L 03/09/18 04:16 Lipase 21 U/L (23-300) L 02/20/18 15:25 Plasma Lactate 1.3 MMOL/L (0.6-2.2) 02/24/18 04:13 Vitamin B12 367 pg/mL (239-931) 02/20/18 20:07 Procalcitonin < 0.05 NG/ML 02/21/18 04:11 Specimen Hemolysis < 15 (0-25) 03/12/18 07:03 Intake and Output 03/11/18 03/12/18 03/13/18 06:59 06:59 06:59 Intake Total 4272.667 / 4272.667 3785.9615 / 3785.9615 Output Total 3427 / 3427 3868 / 3868 85 / 85 Balance 845.667 / 845.667 -82.0385 / -82.0385 -85 / -85 Weight 64.6 kg 66.2 kg Intake: IV 4222.667 / 4222.667 3765.9615 / 3765.9615 Fat Emulsion 20% 250 ml @ 25 250.000 / 250.000 248.75 / 248.75 mls/hr IV 1600 [facility] Rx#: [id number] Fluconazole Pb 200 mg In 100 ml 100 / 100 100 / 100 @ 100 mls/hr IV Q24H [facility] Rx#: [id number] Meropenem 1 gm In Ns 100 ml @ 300 / 300 300 / 300 200 mls/hr IV Q8H [facility] Rx#: [id number] Multi-Vit Infusion 10 ml Multi 1837.667 / 1837.667 -Trace Elements 1 ml In TPN - Standard Formula 2,000 ml @ 100 mls/hr IV .Q20H7M [facility] Rx#: [id number] Multi-Vit Infusion 10 ml Multi 421.667 / 482.294 1647.2115 / 2117.2115 -Trace Elements 1 ml SODIUM PHOSPHATE (mEq) 20 meq In TPN - Standard Formula 2,000 ml @ 100 mls/hr IV .[id number] [facility] Rx#: [id number] NS 500ml 500 ml @ 166.6 mls/hr 500.000 / 500.000 IV .Q3H1M [facility] Rx#:[id number] Vancomycin 1,000 mg In NS 250ml 813.333 / 960.999 4622 / 1000 250 ml @ 250 mls/hr IV Q6H [facility] Rx#:[id number] Intake, Gastric Tube Irrigant 50 / 50 20 / 20 Amount Left Nare 50 / 50 20 / 20 Output: Stool 500 / 500 Urine Amount (Catheter) 2480 / 2480 2250 / 2250 85 / 85 Gastric Drainage 500 / 500 600 / 600 Left Nare 500 / 500 600 / 600 Wound Drainage 447 / 447 518 / 518 Abdomen 20 / 20 0 / 0 Left Anterior Medial Abdomen 230 / 230 320 / 320 Left Lower Abdomen 75 / 75 45 / 45 Left Lower Lateral Abdomen 42 / 42 110 / 110 Right Anterior Medial Abdomen 75 / 75 23 / 23 Right Lower Lateral Abdomen 5 / 5 20 / 20 Other: Urine Appearance Clear Cloudy Cloudy Urine Color Straw Light Meliza Light Meliza Stool Color Brown Yellow Stool Consistency Liquid Drain Type Left Anterior Medial Abdomen Bulb [place] Bulb [place] Left Lower Abdomen Bulb [place] Bulb [place] Left Lower Lateral Abdomen Bulb [place] Bulb [place] Right Anterior Medial Abdomen Bulb [place] Bulb [place] Right Lower Lateral Abdomen Bulb [place] Bulb [place] - Consult Information We will continue same TPN rate and formula today. We will continue to follow. Thanks
--- NOTE | 2018-03-12 12:48 | Pharmacy Consult-Antibiotics ---
Pharmacy Consult-Vancomycin - Laboratory Information WBC 12.7 T/MM3 (4.5-11.0) H 03/12/18 07:03 BUN 16.0 MG/DL (9-20) 03/12/18 07:03 Creatinine 0.4 mg/dL (0.8-1.5) L 03/12/18 07:03 Procalcitonin < 0.05 NG/ML 02/21/18 04:11 Vancomycin Trough 14.18 ug/mL (15-20) L 03/12/18 07:03 - Consult Information VANCOMYCIN CONSULT: day 6 goal Vanco trough range= 15 to 20 mcg/ml Vancomycin Trough = 14.18 mcg/ml. Today's SCr = 0.4 mg/dl. Will increase to Vancomycin 1,250 mg IV q6hrs. Will continue to monitor and make adjustments accordingly. Thank you, Malka Castro [facility]
--- NOTE | 2018-03-12 12:54 | Progress Note ---
- Date 03/12/18 Subjective: Up in chair upon my visit. Still with drainage mostly from left drain only. Heart rate in 130's. Patient has no new complaints. Still with intermittent fever. Objective Vital signs: Temperature 101.8 F H 03/12/18 08:00 Pulse Rate 130 H 03/12/18 09:00 Respiratory Rate 18 03/12/18 08:29 Blood Pressure 119/73 03/12/18 08:00 Pulse Oximetry 97 03/12/18 08:29 Rhythm: Sinus Tachycardia Height/Weight/BMI: Height 5 ft 9 in Weight 64.7 kg Body Mass Index 22.5 - Constitutional Comments: appears ill. - Routine Respiratory Exam Present: CTA bilaterally - Routine Cardiovascular Exam Present: tachycardia - Routine Abdominal Exam Present: soft, non distended Comments: 3 surgical drains on left upper abdomen, wound vac on medial incision, colostomy with brown drainage. - Routine Extremities Exam Present: no edema - Routine Skin Exam Present: intact, dry, warm - Routine Neurological Exam Present: alert, oriented X3, CN II-XII intact Results - Labs CBC & Chem 7: 03/12/18 07:03 03/12/18 07:03 Microbiology Results: Microbiology 03/01/18 18:56 Abdomen, Left Upper Gram Stain - Final 03/01/18 18:56 Abdomen, Left Upper Surgical Culture - Final Escherichia coli Anaerobic Gram-Negative Bhanu Anaerobic Gram-Positive Cocci 02/23/18 20:15 Peripheral/Iv Start Gram Stain - Final Not performed 02/23/18 20:15 Peripheral/Iv Start Blood Culture - Final No Growth After 5 Days 02/23/18 20:05 Peripheral/Iv Start Gram Stain - Final Not performed 02/23/18 20:05 Peripheral/Iv Start Blood Culture - Final No Growth After 5 Days 02/20/18 20:07 Peripheral/Iv Start Blood Culture - Final No Growth After 5 Days Assessment and Plan (1) Megacolon Problem details: Toxic megacolon Current visit: Yes Status: Acute (2) Perforation of colon Problem details: Perforation of the splenic flexure due to ischemic changes Current visit: Yes Status: Acute Assessment and Plan: Assessment 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 WBC trended down to 12.7. Renal status and electrolytes stable. Little change in overall status. CT ab/pelvis shown abscess with drain in place, however abscess has increased in size per CT 03/10/18. Sx working to have drains flushed. Continues on Meropenem, vancomycin, and Diflucan for coverage. TPN for nutritional and volume support. Added q12hr metoprolol in attempt to control heart rate, only marginally working and could be titrated if blood pressure allows. Continue pain control. Repeat BMP and Phos tomorrow due to TPN. Will repeat CBC due to leukocytosis/ thrombocytosis. Discussed case with CCU nursing. No family in room at the time of my visit. 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 - Physician Narrative Narrative: Date: 03/12/18 Time: 1250 Hospital Course Summary Disclaimer: The visit summary below is not to be considered part of the above Progress Note. Hospital Course: 02/20/18 Admit, CCU. Bowel rest - NPO. Cont IVF - 1/2 NS with Na of 144. Consult Dr. Gomez for mgt. Sx management with Protonix, morphine, Zofran. Cont IVF for tachycardia; sepsis. Repeat lactate. Cont Zosyn for bowel coverage. Follow BC results. Iron w/u in progress. Type & screen ordered. D/W with Dr. Stevens and RN. 02/22/18 Gastrografin enema 02/21 with copious stool resulting. However, still with stool in rectal vault. Deferring further management to surgery team, await recs. Cont Zosyn given bandemia, tachycardia and concern for toxic megacolon. 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 Clinically deteriorating. Going for surgery for perforation/free air. Near total colectomy performed. Became hypotensive, tachycardic with rates into 180s. Aggressively fluid resuscitated. 02/24/18 UOP, tachycardia improved. Cont abx. Initiate TPN. Monitoring for return of bowel fxn. 02/25/18 Given Kphos Transfused another 1U PRBCs. Stopped LR. Surgery to trial clamping NGT. Intermittently febrile- rectal Tylenol. 02/26/18 Did have fever overnight. Has tolerated NGT clamping. No O2 requirements. No N/V /CP. Hasn't been able to perform IS very well. 02/27/18 Remains on TPN, tolerating limited oral liquids earlier today however resultant emesis has required resumption of NG suction. Good output per ostomy; 2400 mL output reported during prior 24-hour period. Hemoglobin drifting down, ongoing hypokalemia-post being reassessed this afternoon. Potassium increased and TPN but may require supplemental boluses due to potassium lost in stool and emesis. Persistent tachycardia-may require additional blood transfusion. Remains on Zosyn for peritonitis; chest x-ray with pleural effusion but no evidence of pneumonia. May require repeat CT abdomen/pelvis to exclude intra-abdominal abscess. 02/28/18 Remains on TPN, electrolytes stable. Good urine output per ostomy but continues to have high volume output per NG. Output significantly higher than input, weight down, ongoing tachycardia--> 1 L fluid bolus tonight. Anticipate ongoing need for fluids to match fluid losses. CT abdomen/pelvis discussed with radiology this evening and subsequently with Dr. Hills; will review further with radiology tomorrow to determine if drainage can be performed of the subphrenic abscess percutaneously or if surgical drainage/washout will be needed due to presence of multiple smaller fluid collections suggestive of early abscesses. Dr. Hills notified patient 's parents of findings. Hemoglobin continues to drift down very slowly, may be slightly hemoconcentrated at present. Type and screen in a.m. Anticipating transfusion in the next 1-2 days. 03/01/18 OP Day - Exploratory laparotomy, drainage of multiple intraabdominal abscesses, fecal disimpaction, intraoperative flexible proctoscopy. Subdiaphragmatic abscess and left upper quadrant-discussed with radiology and message subsequently relayed to Dr. Hills regarding potential risk of percutaneous drainage. Patient tenably scheduled to return to the operating room later today. Several very small extensive gas in the pelvis without clear room enhancement to suggest abscess, may simply be postoperative change. Remains on TPN, electrolytes stable. Good urine output per ostomy but continues to have high volume output per NG. Output significantly higher than input, weight down, ongoing tachycardia--> 1 L fluid bolus this a.m. and continue normal saline at 100 mL per hour. 2 units PRBCs matched preoperatively; one being given prior to surgery for hemoglobin 7.4. 03/02/18 s/p ex lap with placement of drains by Dr. Hills. Febrile before surgery. WBC up post-op. Wound cx growing GPC, GNR, GPR. Continue Zosyn Remains on TPN, reduce K+. Good urine output. Output per NG down. Continued tachycardia. Continue IVF and treat pain. Output significantly higher than input, weight down, ongoing tachycardia--> 1 L fluid bolus this a.m. and continue normal saline at 100 mL per hour. Anticipate ongoing need for fluids to match fluid losses. 1 unit PRBCs given 03/01. Total of 4 units transfused Ferrlecit dose given 02/25, plan to repeat dose 03/04. Discussed with nursing who provide supplemental history; mother updated. Prognosis guarded. 03/03/18 s/p ex lap 03/01 with placement of drains by Dr. Hills. Afebrile and WBC down. Wound cx growing GPC, GNR, GPR. Continue Zosyn and fluconazole Continue TPN, K+ improved. Good urine output. Output per NG and ostomy down since 03/01 ex lap. Continued tachycardia. Continue IVF and treat pain. ? whether anxious. Trial of Ativan Anticipate ongoing need for fluids to match fluid losses. 1 unit PRBCs given 03/01. Total of 4 units transfused Ferrlecit dose given 02/25, plan to repeat dose 03/04. Discussed with nursing who provide supplemental history; mother updated. Prognosis guarded. 03/04/18 s/p ex lap 03/01 with placement of drains by Dr. Hills. Fever and WBC up slightly. Wound cx growing e coli, sensitive to Zosyn. Fluconazole. Check CXR Continue TPN, K+ improved. Good urine output. Output per NG and ostomy down since 03/01 ex lap. Continued tachycardia. Hold LR as patient with trace edema. Start fentanyl patch for pain. He got 28 mg iv morphine yesterday. Starting fentanyl at 12mcg d /t possible interaction with Fluconazole. 1 unit PRBCs given 03/01. Total of 4 units transfused Ferrlicit dose given 02/25, plan to repeat dose 03/04. Discussed with nursing who provide supplemental history. Encourage activity. Prognosis guarded 03/05/18 s/p ex lap 03/01 with placement of drains by Dr. Hills. Wound VAC. Fever. WBC down slightly. Wound cx growing e coli, sensitive to Zosyn. Fluconazole. Check CXR. Continue TPN, decrease Mg. Good urine output. Output per NG up yesterday. Continued tachycardia. Holding LR as patient with trace edema. Appears more comfortable with fentanyl patch for pain. Platelets trending up. Check inflammatory markers. If continued fever, consider repeating CT Encourage activity. 03/06/18 Temp elevations to 100.5 - 101.7. Persistent tachycardia in 130s. BP 100's. WBC with gradual trend down to 17.9 - was 25.0 on 03/02. Platelets trending up to 971 (was 407 on 03/02). Electrolytes and renal status stable - on TPN. Will continue with Zosyn and Diflucan for antimicrobial coverage. Continue with wound vac and drains. CT scan of ab/pelvis to exclude occult abscess formation. Encourage continued activities. 03/07/18 WBC with gradual trend down to 14.3 - was 17.9 on yesterday. Platelets elevated at 961 (was 971 yesterday). Hemoglobin persistently low at 7.6; with continued tachycardia will give 1 unit of pRBC. Electrolytes and renal status stable - on TPN. Will continue with Zosyn for antimicrobial coverage; Dr Gomez added Vancomycin and increased Diflucan to 200mg daily. Continue with wound vac and drains. CT scan of ab/pelvis showed possible new abscess formation in the suprapubic region and omental area. Encourage continued activities. 03/08/18 WBC with increase back to 17.1. HGB increased to 8.2 post transfusion yesterday. Pharm recommended changing Zosyn to Meropenem - did agree. Continue vancomycin and Diflucan. Will continue with TPN for nutritional support - NS bolus of 500cc to help with tachycardia. Continue with pain control. 03/09/18 Temp elevations continue. WBC with decrease to 15.6, but increased bands noted. Renal status and electrolytes stable. Continues of Meropenem, vancomycin, and Diflucan for coverage. Dr Gomez plan repeating CT scan with contrast (though NG) tomorrow to check for bowel function and further abscesses. TPN for nutritional and volume support. Continue with MS for pain, add Aspercreme for muscle discomfort. 03/10/18 Temp elevations continue. WBC 16.4. Renal status and electrolytes stable. Little change in overall status. CT ab/pelvis shown abscess with drain in place, however abscess has increased in size. Sx working to have drains flushed. Continues on Meropenem, vancomycin, and Diflucan for coverage. TPN for nutritional and volume support. Will give 500cc NS bolus to help improve BP. 03/11/18 Temp elevations continue. WBC trended down to 14. Renal status and electrolytes stable. Little change in overall status. CT ab/pelvis shown abscess with drain in place, however abscess has increased in size. Sx working to have drains flushed. Continues on Meropenem, vancomycin, and Diflucan for coverage. TPN for nutritional and volume support. Repeat 500cc NS bolus today and add metoprolol for tachycardia as BP allows. Continue pain control. Repeat BMP and Phos tomorrow due to TPN. Will repeat CBC due to leukocytosis/ thrombocytosis. 03/12/18 Temp elevations continue. WBC trended down to 12.7. Renal status and electrolytes stable. Little change in overall status. CT ab/pelvis shown abscess with drain in place, however abscess has increased in size per CT 03/10/18. Sx working to have drains flushed. Continues on Meropenem, vancomycin, and Diflucan for coverage. TPN for nutritional and volume support. Added q12hr metoprolol in attempt to control heart rate, only marginally working and could be titrated if blood pressure allows. Continue pain control. Repeat BMP and Phos tomorrow due to TPN. Will repeat CBC due to leukocytosis/ thrombocytosis.
[2018-03-12] MEDS: FAT EMULSION 20% 250 ML IV SCH ×2 (14:26→19:30)
[2018-03-12] MEDS: FLUCONAZOLE PB 200 MG/100 ML BAG IV SCH (17:18)
[2018-03-12] MEDS: SALINE FLUSH 10ml SYRINGE IVF PRN (19:27)
[2018-03-12] MEDS: NS FLUSH BAG 500ml IV PRN (19:28)
[2018-03-12] MEDS: CLINIMIX-E 5%/20% TPN - STANDARD FORMULA IV SCH (20:40)
[2018-03-13] MEDS: MORPHINE SULFATE 4mg INJECTION IVP PRN ×3 (00:50→15:21)
[2018-03-13] MEDS: ACETAMINOPHEN 650 MG SUPPOSITORY PR PRN (03:46)
[2018-03-13] MEDS: SALINE FLUSH 10ml SYRINGE IVF PRN ×3 (04:14→21:59)
[2018-03-13] MEDS: MEROPENEM 1 GM in NS 100 ML IV SCH ×3 (04:14→19:44)
[2018-03-13] MEDS: INSULIN ASPART 100unit/ml INJECTION SQ PRN (06:24)
--- NOTE | 2018-03-13 08:27 | General Surgery Progress Note ---
Subjective Patient reports: fever (102.6 at 4 am today) Narrative: Bath in progress this morning. He is more alert than 2 days ago. Remains on TPN , he has had small amounts of stool in colostomy bag. Nursing called during the night, the midnight CLIFTON irrigation produced irrigant fluid leaking out around the outside of the CLIFTON. They were told to HOLD more irrigation till Dr. Gomez or I could see him in the morning. Arslan indicates "yes" when asked about abd pain with palpation left side and a lesser degree on the right, and "no" with palpation of legs and arms. - Vital Signs Last Vital Signs Temp 100.3 F 03/13/18 06:00 Pulse 130 H 03/13/18 06:00 Resp 15 03/13/18 06:00 BP 117/67 03/13/18 06:00 Pulse Ox 96 03/13/18 06:00 - Laboratory Result Diagrams: 03/13/18 04:11 03/13/18 04:11 Laboratory Tests 03/10/18 03/11/18 03/12/18 04:34 04:22 07:03 WBC 16.1 H 14.8 H 12.7 H Plt Count 727 H 679 H 657 H 03/13/18 04:11 WBC 11.7 H Plt Count 611 H - Abnormal Exam General: other (poor cognitive function, although this is his normal state.) Cardiovascular: other (tachy in the 130's) Abdominal: hypoactive bowel sounds (gurgling), firm (slightly), other (JPs on left with thin purulent fluid in them, on the right serosangenous fluid. Irrigation of all 3 with 10 ml NS without difficulty, no retun with aspiration and placed back to CLIFTON. The superior most drain leaked NS immediately, placing hand on drain fored a seal and it then did not leak.) - Normal Exam General: awake, alert Cardiovascular: regular rhythm, regular rate Respiratory: clear bilaterally, no labored breathing Abdominal: appropriately tender, incision(s) (midline wound vac in place, foam nicely compressed), other (colostomy is nice pink, no stool in bag currently) Assessment and Plan (1) Impaction of colon Current Visit: Yes Status: Acute (2) Megacolon Current Visit: Yes Status: Acute Problem details: Toxic megacolon (3) Mild epistaxis Current Visit: Yes Status: Acute (4) Postoperative intra-abdominal abscess Current Visit: Yes Status: Acute Qualifiers: Encounter type: initial encounter Qualified Code(s): T81.4XXA - Infection following a procedure, initial encounter; K65.1 - Peritoneal abscess (5) Perforated sigmoid colon Current Visit: Yes Status: Acute (6) Colostomy in place Current Visit: Yes Status: Chronic (7) 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 Drainage seems to be getting "thinner" in JPs continue irrigation, will have to hold pressure on the drain site to keep them. Continue ABX. Continue TPN CT abd/pelvis ordered for tomorrow. Hospital Course Summary Disclaimer: The visit summary below is not to be considered part of the above Progress Note. Hospital Course: 02/20/18 Admit, CCU. Bowel rest - NPO. Cont IVF - 1/2 NS with Na of 144. Consult Dr. Gomez for mgt. Sx management with Protonix, morphine, Zofran. Cont IVF for tachycardia; sepsis. Repeat lactate. Cont Zosyn for bowel coverage. Follow BC results. Iron w/u in progress. Type & screen ordered. D/W with Dr. Stevens and RN. 02/22/18 Gastrografin enema 02/21 with copious stool resulting. However, still with stool in rectal vault. Deferring further management to surgery team, await recs. Cont Zosyn given bandemia, tachycardia and concern for toxic megacolon. 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 Clinically deteriorating. Going for surgery for perforation/free air. Near total colectomy performed. Became hypotensive, tachycardic with rates into 180s. Aggressively fluid resuscitated. 02/24/18 UOP, tachycardia improved. Cont abx. Initiate TPN. Monitoring for return of bowel fxn. 02/25/18 Given Kphos Transfused another 1U PRBCs. Stopped LR. Surgery to trial clamping NGT. Intermittently febrile- rectal Tylenol. 02/26/18 Did have fever overnight. Has tolerated NGT clamping. No O2 requirements. No N/V /CP. Hasn't been able to perform IS very well. 02/27/18 Remains on TPN, tolerating limited oral liquids earlier today however resultant emesis has required resumption of NG suction. Good output per ostomy; 2400 mL output reported during prior 24-hour period. Hemoglobin drifting down, ongoing hypokalemia-post being reassessed this afternoon. Potassium increased and TPN but may require supplemental boluses due to potassium lost in stool and emesis. Persistent tachycardia-may require additional blood transfusion. Remains on Zosyn for peritonitis; chest x-ray with pleural effusion but no evidence of pneumonia. May require repeat CT abdomen/pelvis to exclude intra-abdominal abscess. 02/28/18 Remains on TPN, electrolytes stable. Good urine output per ostomy but continues to have high volume output per NG. Output significantly higher than input, weight down, ongoing tachycardia--> 1 L fluid bolus tonight. Anticipate ongoing need for fluids to match fluid losses. CT abdomen/pelvis discussed with radiology this evening and subsequently with Dr. Hills; will review further with radiology tomorrow to determine if drainage can be performed of the subphrenic abscess percutaneously or if surgical drainage/washout will be needed due to presence of multiple smaller fluid collections suggestive of early abscesses. Dr. Hills notified patient 's parents of findings. Hemoglobin continues to drift down very slowly, may be slightly hemoconcentrated at present. Type and screen in a.m. Anticipating transfusion in the next 1-2 days. 03/01/18 OP Day - Exploratory laparotomy, drainage of multiple intraabdominal abscesses, fecal disimpaction, intraoperative flexible proctoscopy. Subdiaphragmatic abscess and left upper quadrant-discussed with radiology and message subsequently relayed to Dr. Hills regarding potential risk of percutaneous drainage. Patient tenably scheduled to return to the operating room later today. Several very small extensive gas in the pelvis without clear room enhancement to suggest abscess, may simply be postoperative change. Remains on TPN, electrolytes stable. Good urine output per ostomy but continues to have high volume output per NG. Output significantly higher than input, weight down, ongoing tachycardia--> 1 L fluid bolus this a.m. and continue normal saline at 100 mL per hour. 2 units PRBCs matched preoperatively; one being given prior to surgery for hemoglobin 7.4. 03/02/18 s/p ex lap with placement of drains by Dr. Hills. Febrile before surgery. WBC up post-op. Wound cx growing GPC, GNR, GPR. Continue Zosyn Remains on TPN, reduce K+. Good urine output. Output per NG down. Continued tachycardia. Continue IVF and treat pain. Output significantly higher than input, weight down, ongoing tachycardia--> 1 L fluid bolus this a.m. and continue normal saline at 100 mL per hour. Anticipate ongoing need for fluids to match fluid losses. 1 unit PRBCs given 03/01. Total of 4 units transfused Ferrlecit dose given 02/25, plan to repeat dose 03/04. Discussed with nursing who provide supplemental history; mother updated. Prognosis guarded. 03/03/18 s/p ex lap 03/01 with placement of drains by Dr. Hills. Afebrile and WBC down. Wound cx growing GPC, GNR, GPR. Continue Zosyn and fluconazole Continue TPN, K+ improved. Good urine output. Output per NG and ostomy down since 03/01 ex lap. Continued tachycardia. Continue IVF and treat pain. ? whether anxious. Trial of Ativan Anticipate ongoing need for fluids to match fluid losses. 1 unit PRBCs given 03/01. Total of 4 units transfused Ferrlecit dose given 02/25, plan to repeat dose 03/04. Discussed with nursing who provide supplemental history; mother updated. Prognosis guarded. 03/04/18 s/p ex lap 03/01 with placement of drains by Dr. Hills. Fever and WBC up slightly. Wound cx growing e coli, sensitive to Zosyn. Fluconazole. Check CXR Continue TPN, K+ improved. Good urine output. Output per NG and ostomy down since 03/01 ex lap. Continued tachycardia. Hold LR as patient with trace edema. Start fentanyl patch for pain. He got 28 mg iv morphine yesterday. Starting fentanyl at 12mcg d /t possible interaction with Fluconazole. 1 unit PRBCs given 03/01. Total of 4 units transfused Ferrlicit dose given 02/25, plan to repeat dose 03/04. Discussed with nursing who provide supplemental history. Encourage activity. Prognosis guarded 7/1/18 s/p ex lap 03/01 with placement of drains by Dr. Hills. Wound VAC. Fever. WBC down slightly. Wound cx growing e coli, sensitive to Zosyn. Fluconazole. Check CXR. Continue TPN, decrease Mg. Good urine output. Output per NG up yesterday. Continued tachycardia. Holding LR as patient with trace edema. Appears more comfortable with fentanyl patch for pain. Platelets trending up. Check inflammatory markers. If continued fever, consider repeating CT Encourage activity. 03/06/18 Temp elevations to 100.5 - 101.7. Persistent tachycardia in 130s. BP 100's. WBC with gradual trend down to 17.9 - was 25.0 on 03/02. Platelets trending up to 971 (was 407 on 03/02). Electrolytes and renal status stable - on TPN. Will continue with Zosyn and Diflucan for antimicrobial coverage. Continue with wound vac and drains. CT scan of ab/pelvis to exclude occult abscess formation. Encourage continued activities. 03/07/18 WBC with gradual trend down to 14.3 - was 17.9 on yesterday. Platelets elevated at 961 (was 971 yesterday). Hemoglobin persistently low at 7.6; with continued tachycardia will give 1 unit of pRBC. Electrolytes and renal status stable - on TPN. Will continue with Zosyn for antimicrobial coverage; Dr Gomez added Vancomycin and increased Diflucan to 200mg daily. Continue with wound vac and drains. CT scan of ab/pelvis showed possible new abscess formation in the suprapubic region and omental area. Encourage continued activities. 03/08/18 WBC with increase back to 17.1. HGB increased to 8.2 post transfusion yesterday. Pharm recommended changing Zosyn to Meropenem - did agree. Continue vancomycin and Diflucan. Will continue with TPN for nutritional support - NS bolus of 500cc to help with tachycardia. Continue with pain control. 03/09/18 Temp elevations continue. WBC with decrease to 15.6, but increased bands noted. Renal status and electrolytes stable. Continues of Meropenem, vancomycin, and Diflucan for coverage. Dr Gomez plan repeating CT scan with contrast (though NG) tomorrow to check for bowel function and further abscesses. TPN for nutritional and volume support. Continue with MS for pain, add Aspercreme for muscle discomfort. 03/10/18 Temp elevations continue. WBC 16.4. Renal status and electrolytes stable. Little change in overall status. CT ab/pelvis shown abscess with drain in place, however abscess has increased in size. Sx working to have drains flushed. Continues on Meropenem, vancomycin, and Diflucan for coverage. TPN for nutritional and volume support. Will give 500cc NS bolus to help improve BP. 03/11/18 Temp elevations continue. WBC trended down to 14. Renal status and electrolytes stable. Little change in overall status. CT ab/pelvis shown abscess with drain in place, however abscess has increased in size. Sx working to have drains flushed. Continues on Meropenem, vancomycin, and Diflucan for coverage. TPN for nutritional and volume support. Repeat 500cc NS bolus today and add metoprolol for tachycardia as BP allows. Continue pain control. Repeat BMP and Phos tomorrow due to TPN. Will repeat CBC due to leukocytosis/ thrombocytosis. 03/12/18 Temp elevations continue. WBC trended down to 12.7. Renal status and electrolytes stable. Little change in overall status. CT ab/pelvis shown abscess with drain in place, however abscess has increased in size per CT 03/10/18. Sx working to have drains flushed. Continues on Meropenem, vancomycin, and Diflucan for coverage. TPN for nutritional and volume support. Added q12hr metoprolol in attempt to control heart rate, only marginally working and could be titrated if blood pressure allows. Continue pain control. Repeat BMP and Phos tomorrow due to TPN. Will repeat CBC due to leukocytosis/ thrombocytosis.
[2018-03-13] MEDS: ALBUTEROL/IPRATROPIUM 2.5mg-0.5mg/3ml NEB IPPB SCH ×3 (08:28→19:02)
[2018-03-13] MEDS: ENOXAPARIN 40 MG/0.4 ML INJECTION SQ SCH (08:49)
[2018-03-13] MEDS: PANTOPRAZOLE 40 MG INJECTION IVP SCH (08:50)
[2018-03-13] MEDS: METOPROLOL 5mg/5ml INJECTION IVP SCH ×2 (08:50→21:59)
--- NOTE | 2018-03-13 09:21 | Progress Note ---
0DATE 03/12/2018 FINDINGS Cosmo was seen this morning on rounds. He was a little more verbal this morning. He did state that he was experiencing abdominal pain. OBJECTIVE VITALS: T-max 102.0. Current vitals include temperature 101.8, pulse 130, respirations 18, blood pressure 119/73, SaO2 97% on room air. CHEST: Clear to auscultation bilaterally. HEART: Regular rate and rhythm. Normal S1, S2, without gallops, murmurs or clicks. ABDOMEN: Visualization of the drains within the left upper quadrant does reveal a fair amount of frankly purulent material within the CLIFTON bulbs. One drain does appear to have more purulent material within it. Palpation of the abdomen revealed it to be soft with some tenderness noted on palpation. Positive component of voluntary guarding. No evidence for involuntary guarding or rebound. LABORATORY/RADIOGRAPHIC EVALUATION Patient's white count is on a downward trend now to 12.7. His bandemia has improved over the last couple of days. He still has a left shift with 85% neutrophils. BMP obtained and found to be without marked abnormalities. ASSESSMENT 32-year-old gentleman status post exploratory laparotomies x2 with creation of end colostomy, Mendoza's pouch, drainage of multiple abdominal abscesses, with placement of multiple intraperitoneal drains. Patient with the misfortune of developing recurrent abscesses. PLAN Overall I do believe that Arslan has made some improvement over the last couple of days. We did attempt to DC his NG, and yesterday he became nauseated with some vomiting. NG was replaced. I am encouraged to see that there is increasing output now from his CLIFTON drains after we have begun irrigating them. It does appear the amount that we are obtaining is significantly larger than the amount which is being placed within the drains for irrigation purposes. On Tuesday, will likely repeat the CT scan to see if there is some decrease in the size of the abscesses. Overall the patient remains stable with some improvement. Will continue otherwise with current care. SYLVAIN
[2018-03-13] MEDS: CLINIMIX-E 5%/20% TPN - STANDARD FORMULA IV SCH (15:24)
[2018-03-13] MEDS: FAT EMULSION 20% 250 ML IV SCH (15:25)
--- NOTE | 2018-03-13 16:06 | Progress Note ---
- Date 03/13/18 Subjective: F/U: Toxic Megacolon, Perforation of splenic flexure, Multiple areas of intraabdominal abscess formation Resting in bed. Report pain to ab. WBC with slight decrease, but patient with persistent tachycardia and temp elevations. Increased output from drains with flushing. Removal of NG attempted this weekend, but increased N/V prompted reinsertion. Objective Vital signs: Temperature 100.3 F 03/13/18 12:00 Pulse Rate 132 H 03/13/18 15:00 Respiratory Rate 18 03/13/18 15:00 Blood Pressure 116/70 03/13/18 15:00 Pulse Oximetry 97 03/13/18 15:00 Rhythm: Sinus Tachycardia Height/Weight/BMI: Height 1.75 m Weight 66.6 kg Body Mass Index 22.5 - Constitutional Present: mild distress, well developed, average body habitus, thin - Routine HEENT Exam Head: Present: normocephalic, atraumatic Eye: Present: EOMI, PERRL - Routine Respiratory Exam Present: decreased breath sounds. Absent: rales, respiratory distress, rhonchi , stridor, wheezes - Routine Cardiovascular Exam Present: no murmur, tachycardia (Regular) - Routine Abdominal Exam Present: tenderness. Absent: normoactive bowel sounds (Decreased), non distended - Routine Extremities Exam Present: edema (Trace), pulses intact. Absent: cyanosis, clubbing - Routine Skin Exam Present: warm. Absent: dry (Moist) - Routine Neurological Exam Present: alert, vision grossly intact, hearing grossly intact - Routine Psychiatric Exam Absent: agitated Results - Labs CBC & Chem 7: 03/13/18 04:11 03/13/18 04:11 Microbiology Results: Microbiology 03/01/18 18:56 Abdomen, Left Upper Gram Stain - Final 03/01/18 18:56 Abdomen, Left Upper Surgical Culture - Final Escherichia coli Anaerobic Gram-Negative Bhanu Anaerobic Gram-Positive Cocci 02/23/18 20:15 Peripheral/Iv Start Gram Stain - Final Not performed 02/23/18 20:15 Peripheral/Iv Start Blood Culture - Final No Growth After 5 Days 02/23/18 20:05 Peripheral/Iv Start Gram Stain - Final Not performed 02/23/18 20:05 Peripheral/Iv Start Blood Culture - Final No Growth After 5 Days 02/20/18 20:07 Peripheral/Iv Start Blood Culture - Final No Growth After 5 Days Assessment and Plan (1) Megacolon Problem details: Toxic megacolon Current visit: Yes Status: Acute (2) Perforation of colon Problem details: Perforation of the splenic flexure due to ischemic changes Current visit: Yes Status: Acute Assessment and Plan: Assessment 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 Continues on Meropenem, vancomycin, and Diflucan for coverage. TPN for nutritional and volume support. Continue pain control. Repeat CMP, Mg, INR and Phos tomorrow due to TPN. Will repeat CBC & CRP due to leukocytosis/thrombocytosis. Discussed case with CCU nursing and family. DVT Prophylaxis: SCD's, Lovenox Resuscitation Status: Full Code - Physician Narrative Physician: Daniel Stevens MD Narrative: Date: 03/13/18 Time: 1603 Hospital Course Summary Disclaimer: The visit summary below is not to be considered part of the above Progress Note. Hospital Course: 02/20/18 Admit, CCU. Bowel rest - NPO. Cont IVF - 1/2 NS with Na of 144. Consult Dr. Gomez for mgt. Sx management with Protonix, morphine, Zofran. Cont IVF for tachycardia; sepsis. Repeat lactate. Cont Zosyn for bowel coverage. Follow BC results. Iron w/u in progress. Type & screen ordered. D/W with Dr. Stevens and RN. 02/22/18 Gastrografin enema 02/21 with copious stool resulting. However, still with stool in rectal vault. Deferring further management to surgery team, await recs. Cont Zosyn given bandemia, tachycardia and concern for toxic megacolon. 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 Clinically deteriorating. Going for surgery for perforation/free air. Near total colectomy performed. Became hypotensive, tachycardic with rates into 180s. Aggressively fluid resuscitated. 02/24/18 UOP, tachycardia improved. Cont abx. Initiate TPN. Monitoring for return of bowel fxn. 02/25/18 Given Kphos Transfused another 1U PRBCs. Stopped LR. Surgery to trial clamping NGT. Intermittently febrile- rectal Tylenol. 02/26/18 Did have fever overnight. Has tolerated NGT clamping. No O2 requirements. No N/V /CP. Hasn't been able to perform IS very well. 02/27/18 Remains on TPN, tolerating limited oral liquids earlier today however resultant emesis has required resumption of NG suction. Good output per ostomy; 2400 mL output reported during prior 24-hour period. Hemoglobin drifting down, ongoing hypokalemia-post being reassessed this afternoon. Potassium increased and TPN but may require supplemental boluses due to potassium lost in stool and emesis. Persistent tachycardia-may require additional blood transfusion. Remains on Zosyn for peritonitis; chest x-ray with pleural effusion but no evidence of pneumonia. May require repeat CT abdomen/pelvis to exclude intra-abdominal abscess. 02/28/18 Remains on TPN, electrolytes stable. Good urine output per ostomy but continues to have high volume output per NG. Output significantly higher than input, weight down, ongoing tachycardia--> 1 L fluid bolus tonight. Anticipate ongoing need for fluids to match fluid losses. CT abdomen/pelvis discussed with radiology this evening and subsequently with Dr. Hills; will review further with radiology tomorrow to determine if drainage can be performed of the subphrenic abscess percutaneously or if surgical drainage/washout will be needed due to presence of multiple smaller fluid collections suggestive of early abscesses. Dr. Hills notified patient 's parents of findings. Hemoglobin continues to drift down very slowly, may be slightly hemoconcentrated at present. Type and screen in a.m. Anticipating transfusion in the next 1-2 days. 03/01/18 OP Day - Exploratory laparotomy, drainage of multiple intraabdominal abscesses, fecal disimpaction, intraoperative flexible proctoscopy. Subdiaphragmatic abscess and left upper quadrant-discussed with radiology and message subsequently relayed to Dr. Hills regarding potential risk of percutaneous drainage. Patient tenably scheduled to return to the operating room later today. Several very small extensive gas in the pelvis without clear room enhancement to suggest abscess, may simply be postoperative change. Remains on TPN, electrolytes stable. Good urine output per ostomy but continues to have high volume output per NG. Output significantly higher than input, weight down, ongoing tachycardia--> 1 L fluid bolus this a.m. and continue normal saline at 100 mL per hour. 2 units PRBCs matched preoperatively; one being given prior to surgery for hemoglobin 7.4. 03/02/18 s/p ex lap with placement of drains by Dr. Hills. Febrile before surgery. WBC up post-op. Wound cx growing GPC, GNR, GPR. Continue Zosyn Remains on TPN, reduce K+. Good urine output. Output per NG down. Continued tachycardia. Continue IVF and treat pain. Output significantly higher than input, weight down, ongoing tachycardia--> 1 L fluid bolus this a.m. and continue normal saline at 100 mL per hour. Anticipate ongoing need for fluids to match fluid losses. 1 unit PRBCs given 03/01. Total of 4 units transfused Ferrlecit dose given 02/25, plan to repeat dose 03/04. Discussed with nursing who provide supplemental history; mother updated. Prognosis guarded. 03/03/18 s/p ex lap 03/01 with placement of drains by Dr. Hills. Afebrile and WBC down. Wound cx growing GPC, GNR, GPR. Continue Zosyn and fluconazole Continue TPN, K+ improved. Good urine output. Output per NG and ostomy down since 03/01 ex lap. Continued tachycardia. Continue IVF and treat pain. ? whether anxious. Trial of Ativan Anticipate ongoing need for fluids to match fluid losses. 1 unit PRBCs given 03/01. Total of 4 units transfused Ferrlecit dose given 02/25, plan to repeat dose 03/04. Discussed with nursing who provide supplemental history; mother updated. Prognosis guarded. 03/04/18 s/p ex lap 03/01 with placement of drains by Dr. Hills. Fever and WBC up slightly. Wound cx growing e coli, sensitive to Zosyn. Fluconazole. Check CXR Continue TPN, K+ improved. Good urine output. Output per NG and ostomy down since 03/01 ex lap. Continued tachycardia. Hold LR as patient with trace edema. Start fentanyl patch for pain. He got 28 mg iv morphine yesterday. Starting fentanyl at 12mcg d /t possible interaction with Fluconazole. 1 unit PRBCs given 03/01. Total of 4 units transfused Ferrlicit dose given 02/25, plan to repeat dose 03/04. Discussed with nursing who provide supplemental history. Encourage activity. Prognosis guarded 03/05/18 s/p ex lap 03/01 with placement of drains by Dr. Hills. Wound VAC. Fever. WBC down slightly. Wound cx growing e coli, sensitive to Zosyn. Fluconazole. Check CXR. Continue TPN, decrease Mg. Good urine output. Output per NG up yesterday. Continued tachycardia. Holding LR as patient with trace edema. Appears more comfortable with fentanyl patch for pain. Platelets trending up. Check inflammatory markers. If continued fever, consider repeating CT Encourage activity. 03/06/18 Temp elevations to 100.5 - 101.7. Persistent tachycardia in 130s. BP 100's. WBC with gradual trend down to 17.9 - was 25.0 on 03/02. Platelets trending up to 971 (was 407 on 03/02). Electrolytes and renal status stable - on TPN. Will continue with Zosyn and Diflucan for antimicrobial coverage. Continue with wound vac and drains. CT scan of ab/pelvis to exclude occult abscess formation. Encourage continued activities. 03/07/18 WBC with gradual trend down to 14.3 - was 17.9 on yesterday. Platelets elevated at 961 (was 971 yesterday). Hemoglobin persistently low at 7.6; with continued tachycardia will give 1 unit of pRBC. Electrolytes and renal status stable - on TPN. Will continue with Zosyn for antimicrobial coverage; Dr Gomez added Vancomycin and increased Diflucan to 200mg daily. Continue with wound vac and drains. CT scan of ab/pelvis showed possible new abscess formation in the suprapubic region and omental area. Encourage continued activities. 03/08/18 WBC with increase back to 17.1. HGB increased to 8.2 post transfusion yesterday. Pharm recommended changing Zosyn to Meropenem - did agree. Continue vancomycin and Diflucan. Will continue with TPN for nutritional support - NS bolus of 500cc to help with tachycardia. Continue with pain control. 03/09/18 Temp elevations continue. WBC with decrease to 15.6, but increased bands noted. Renal status and electrolytes stable. Continues of Meropenem, vancomycin, and Diflucan for coverage. Dr Gomez plan repeating CT scan with contrast (though NG) tomorrow to check for bowel function and further abscesses. TPN for nutritional and volume support. Continue with MS for pain, add Aspercreme for muscle discomfort. 03/10/18 Temp elevations continue. WBC 16.4. Renal status and electrolytes stable. Little change in overall status. CT ab/pelvis shown abscess with drain in place, however abscess has increased in size. Sx working to have drains flushed. Continues on Meropenem, vancomycin, and Diflucan for coverage. TPN for nutritional and volume support. Will give 500cc NS bolus to help improve BP. 03/11/18 Temp elevations continue. WBC trended down to 14. Renal status and electrolytes stable. Little change in overall status. CT ab/pelvis shown abscess with drain in place, however abscess has increased in size. Sx working to have drains flushed. Continues on Meropenem, vancomycin, and Diflucan for coverage. TPN for nutritional and volume support. Repeat 500cc NS bolus today and add metoprolol for tachycardia as BP allows. Continue pain control. 03/12/18 Temp elevations continue. WBC trended down to 12.7. Renal status and electrolytes stable. Little change in overall status. CT ab/pelvis shown abscess with drain in place, however abscess has increased in size per CT 03/10/18. Sx working to have drains flushed. Continues on Meropenem, vancomycin, and Diflucan for coverage. TPN for nutritional and volume support. Added q12hr metoprolol in attempt to control heart rate, only marginally working and could be titrated if blood pressure allows. Continue pain control. 03/13/18 WBC with trend down, but still with tachycardia and intermittent temp elevations. Continues on Meropenem, vancomycin, and Diflucan for coverage. TPN for nutritional and volume support. Continue pain control.
[2018-03-13] MEDS: FLUCONAZOLE PB 200 MG/100 ML BAG IV SCH (16:52)
--- NOTE | 2018-03-13 17:06 | Wound Care Progress Note ---
Wound Center Progress Note: Pt seen for ostomy/wound follow up. Seen with [facility] PT student. Pt lying in bed listening to music. FLACC-2. Pt pre-medicated for wound vac dressing change. Wound vac canister has around 300 mL serosanguineous drainage. Surgical midline incision has wound vac dressing intact, vac running at 125 mm Hg continuous pressure. Vac dressing removed, active small sanguineous drainage during procedure. Wound bed: red granulating tissue, scant slough at superior aspect of wound. Periwound: WDNL. Vac drape placed around wound, vac black foam placed into wound bed, vac drape placed over wound. Black foam collapsed without leaks, vac running at 125 mm Hg continuous pressure. Pt tolerated procedure well. Colostomy: Pouching system was changed 03/09/18. No leaks noted at this time. Pouch had lg amount of semi-liquid brown green stool. Stoma appears to be moist and pink. Will continue to f/u with vac dressing changes M/ R. Follow up with ostomy pouching system changes PRN.
--- NOTE | 2018-03-13 20:01 | Progress Note ---
DATE OF SERVICE 03/13/2018 FINDINGS Cosmo was seen this morning on rounds. He was a little less verbal today in comparison to yesterday. He did not appear to be in acute distress. PHYSICAL EXAM VITAL SIGNS: Patient has been afebrile today. On March 11 at 7 o'clock in the evening he did have a fever of 102. Subsequent temps have not been markedly elevated. Please refer to EMR. ABDOMEN: Visualization of the abdomen reveals it to be slightly distended. On rounds this morning there was not as much purulent drainage within the Jose- Almazan drains within the left upper quadrant. One could see some somewhat purulent material within the CLIFTON drains. CLIFTON drainage on the right was minimal and serosanguineous in nature. Palpation of the abdomen revealed it to be tender mostly within the left upper quadrant and left lower quadrant. There was no evidence, however, for guarding or rebound. No navid peritoneal signs were present. LABORATORY/RADIOGRAPHIC EVALUATION The patient had a CBC today and his white count is on a downward trend at 11.7. Bandemia is stable at 4. Neutrophils are stable at 85%. BMP obtained and found to be without marked abnormalities. ASSESSMENT 32-year-old gentleman with history for colonic rupture resulting in fecal peritonitis with subsequent exploratory laparotomy, partial colonic resection with creation of Mendoza's pouch and end colostomy. Misfortune of developing postoperative intraabdominal abscesses requiring repeat laparotomy and drainage of multiple abscesses with placement of additional peritoneal drains. Patient with development of additional abscesses noted on CT scan. The patient does appear to be slightly improving from a clinical standpoint. PLAN Repeat CT scan tomorrow with oral and IV contrast. The drains that we have been irrigating are indeed in the middle of these abscesses that were noted upon followup CT scan. Hopefully after we have been irrigating them the size of the abscesses will have hopefully decreased. If he still has significant intraabdominal abscesses will then decide on further intervention. I would prefer not to proceed with repeat laparotomy but if the patient is developing increasing large abdominal abscesses ultimately this may be required. SYLVAIN
[2018-03-13] MEDS ORDERED: ALTEPLASE (Cathflo*) 2mg INJECTION IV ONE (21:56)
[2018-03-14] MEDS: MEROPENEM 1 GM in NS 100 ML IV SCH ×3 (03:40→19:54)
[2018-03-14] MEDS: ALBUTEROL/IPRATROPIUM 2.5mg-0.5mg/3ml NEB IPPB SCH ×3 (06:45→20:23)
[2018-03-14] MEDS: SALINE FLUSH 10ml SYRINGE IVF PRN (07:51)
[2018-03-14] MEDS: PANTOPRAZOLE 40 MG INJECTION IVP SCH (08:13)
[2018-03-14] MEDS: METOPROLOL 5mg/5ml INJECTION IVP SCH ×3 (08:15→20:42)
[2018-03-14] MEDS: ENOXAPARIN 40 MG/0.4 ML INJECTION SQ SCH (08:16)
--- NOTE | 2018-03-14 08:23 | Pharmacy Consult-TPN/PPN ---
Pharmacy Consult-TPN/PPN - Laboratory Information Chemistry Turbidity < 20 (0-20) 03/14/18 04:00 Sodium 139 MEQ/L (136-146) 03/14/18 04:00 Potassium 4.1 MEQ/L (3.6-5) 03/14/18 04:00 Chloride 105 MEQ/L (98-107) 03/14/18 04:00 Carbon Dioxide 26 MEQ/L (22-30) 03/14/18 04:00 Anion Gap 8 meq/L (5-15) 03/14/18 04:00 BUN 12.0 MG/DL (9-20) 03/14/18 04:00 Creatinine 0.5 mg/dL (0.8-1.5) L 03/14/18 04:00 GFR Calculation 195 03/14/18 04:00 BUN/Creatinine Ratio 24 RATIO (6-26) 03/14/18 04:00 Glucose 96 MG/DL (75-110) 03/14/18 04:00 Glucometer 143 mg/dL (65-110) 03/13/18 23:58 Calculated Osmolality 268 MOSM/KG (261-280) 03/14/18 04:00 Calcium 7.9 MG/DL (8.4-10.2) L 03/14/18 04:00 Ionized Calcium [place] 1.11 MMOL/L (1.12-1.32) L 02/25/18 04:20 Phosphorus 4.7 MG/DL (2.5-4.5) H 03/14/18 04:00 Magnesium 2.2 MG/DL (1.6-2.3) 03/14/18 04:00 Iron 11 ug/dL (49-181) L 02/20/18 20:07 TIBC 342 ug/dL (261-497) 02/20/18 20:07 % Saturation 3 % (13-59) L 02/20/18 20:07 Ferritin 2.44 ng/mL (17-464) L 02/20/18 20:07 Total Bilirubin 0.50 MG/DL (0.20-1.30) 03/14/18 04:00 Icterus Index < 2 (0-7) 03/14/18 04:00 AST 53 U/L (17-59) 03/14/18 04:00 ALT 51 U/L (1-50) H 03/14/18 04:00 Alkaline Phosphatase 198 U/L (38-126) H 03/14/18 04:00 C-Reactive Protein 181.6 mg/L (0-9) H 03/14/18 04:00 Total Protein 5.8 g/dL (6.3-8.2) L 03/14/18 04:00 Albumin 2.6 g/dL (3.5-5.0) L 03/14/18 04:00 Globulin 3.2 G/DL (2.4-3.6) 03/14/18 04:00 Albumin/Globulin Ratio 0.8 RATIO (1.1-2.2) L 03/14/18 04:00 Lipase 21 U/L (23-300) L 02/20/18 15:25 Plasma Lactate 1.3 MMOL/L (0.6-2.2) 02/24/18 04:13 Vitamin B12 367 pg/mL (239-931) 02/20/18 20:07 Procalcitonin < 0.05 NG/ML 02/21/18 04:11 Specimen Hemolysis < 15 (0-25) 03/14/18 04:00 - Consult Information I will continue the TPN as currently ordered. Thanks, Gonzales Russell, Pharmacist
[2018-03-14] MEDS ORDERED: SALINE FLUSH 10ml SYRINGE ONE (09:40)
[2018-03-14] MEDS ORDERED: IOHEXOL 300mg/ml 75ml INJECTION ONE (09:40)
[2018-03-14] MEDS: MORPHINE SULFATE 4mg INJECTION IVP PRN ×2 (11:27→15:14)
[2018-03-14] MEDS: CLINIMIX-E 5%/20% TPN - STANDARD FORMULA IV SCH (11:28)
--- NOTE | 2018-03-14 14:16 | CT Scan Report ---
Indication: intra abdominal abscesses PROCEDURE: CT abdomen pelvis w con: Encounter: Initial Comparison: March 10, 2018 Technique: Axial CT images were performed through the abdomen and pelvis after the administration of intravenous contrast. Coronal and sagittal two-dimensional reformats. Automated Exposure Control and Iterative Reconstruction dose reducing techniques were utilized. Contrast: Omnipaque 300 74 mL Findings: Stable moderate left pleural effusion with basilar compressive atelectasis. The left-sided subdiaphragmatic abscess is smaller, now measuring 9.2 x 5.4 cm compared to 11.7 x 7.7 cm in the axial plane. Craniocaudal thickness is also decreased, now measuring 2 cm on coronal image #25 compared to 4.5 cm previously. The liver is unremarkable. Surgical drain again noted along the right liver margin without fluid collection along its course. Nasogastric tube terminates in the pyloric region of the stomach. The spleen, pancreas, adrenal glands and kidneys are stable. Additional right-sided pelvic abscess drain terminating in the left pelvis without focal fluid collection along its course. Mcdermott catheter within a thick-walled bladder. The drained abscess in the left paracolic gutter region has also decreased in size. This measures 3 cm in transverse diameter and 9.2 cm in craniocaudal dimension compared to 3.7 x 12.5 cm previously. A stool filled thick-walled Hutchinson pouch is again noted. There are dilated contrast-filled small bowel loops seen with contrast extending out the patient's right lower quadrant colostomy. The abscess along the anterior aspect of the pancreas is also significantly decreased in size. This now measures 4.6 x 2.3 cm on axial image #33 compared to 6.6 x 4.5 cm previously. No new or undrained fluid collection identified. Two tiny foci of extraluminal gas are noted in the prevesicular space, decreased from the prior study. The previous area of fluid in the omental periumbilical region has almost resolved. Bone windows are unchanged. No areas of undrained abscess seen. Impression: Decreasing size of the multifocal left abdominal abscesses with drains in place. Residual abscess cavities as measured above. .
[2018-03-14] MEDS: FAT EMULSION 20% 250 ML IV SCH (15:40)
[2018-03-14] MEDS: FLUCONAZOLE PB 200 MG/100 ML BAG IV SCH (16:30)
--- NOTE | 2018-03-14 19:17 | Progress Note ---
- Date 03/14/18 Subjective: F/U: Toxic Megacolon, Perforation of splenic flexure, Multiple areas of intraabdominal abscess formation Doing fair this evening. Does report ab pain. Breathing feels short. Nursing reports patient was able to get up and ambulate today. Objective Vital signs: Temperature 99.3 F 03/14/18 18:00 Pulse Rate 146 H 03/14/18 18:00 Respiratory Rate 23 03/14/18 18:00 Blood Pressure 112/60 03/14/18 18:00 Pulse Oximetry 100 03/14/18 18:00 Rhythm: Sinus Tachycardia Height/Weight/BMI: Height 1.75 m Weight 64.2 kg Body Mass Index 22.5 - Constitutional Present: mild distress, well developed, thin, cooperative - Routine HEENT Exam Head: Present: normocephalic, atraumatic Eye: Present: EOMI, PERRL - Routine Respiratory Exam Present: decreased breath sounds (Basilar blunting), respiratory distress ( Shallow respirations) - Routine Cardiovascular Exam Present: tachycardia (Regular) - Routine Abdominal Exam Present: non distended. Absent: normoactive bowel sounds (Decreased) - Routine Extremities Exam Present: edema (Trace edema), pulses intact. Absent: cyanosis, clubbing - Routine Skin Exam Present: warm. Absent: dry (Moist ) - Routine Neurological Exam Present: alert, vision grossly intact, hearing grossly intact - Routine Psychiatric Exam Comments: More interactive and communicative Results - Labs CBC & Chem 7: 03/14/18 04:00 03/14/18 04:00 Microbiology Results: Microbiology 03/01/18 18:56 Abdomen, Left Upper Gram Stain - Final 03/01/18 18:56 Abdomen, Left Upper Surgical Culture - Final Escherichia coli Anaerobic Gram-Negative Bhanu Anaerobic Gram-Positive Cocci 02/23/18 20:15 Peripheral/Iv Start Gram Stain - Final Not performed 02/23/18 20:15 Peripheral/Iv Start Blood Culture - Final No Growth After 5 Days 02/23/18 20:05 Peripheral/Iv Start Gram Stain - Final Not performed 02/23/18 20:05 Peripheral/Iv Start Blood Culture - Final No Growth After 5 Days 02/20/18 20:07 Peripheral/Iv Start Blood Culture - Final No Growth After 5 Days Assessment and Plan (1) Megacolon Problem details: Toxic megacolon Current visit: Yes Status: Acute (2) Perforation of colon Problem details: Perforation of the splenic flexure due to ischemic changes Current visit: Yes Status: Acute Assessment and Plan: Assessment 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 CT showing decrease size of abscess. Continues on Meropenem, vancomycin, and Diflucan for coverage. TPN for nutritional and volume support. Electrolytes and renal status stable. Continue pain control. Continue activities as able. Repeat BMP tomorrow due to TPN. Will repeat CBC due to leukocytosis/ thrombocytosis. Discussed case with CCU nursing. DVT Prophylaxis: SCD's, Lovenox Resuscitation Status: Full Code - Time spent with patient Time with patient PN: 25 minutes - Physician Narrative Physician: Daniel Stevens MD Narrative: Date: 03/14/18 Time: 1912 Hospital Course Summary Disclaimer: The visit summary below is not to be considered part of the above Progress Note. Hospital Course: 02/20/18 Admit, CCU. Bowel rest - NPO. Cont IVF - 1/2 NS with Na of 144. Consult Dr. Gomez for mgt. Sx management with Protonix, morphine, Zofran. Cont IVF for tachycardia; sepsis. Repeat lactate. Cont Zosyn for bowel coverage. Follow BC results. Iron w/u in progress. Type & screen ordered. D/W with Dr. Stevens and RN. 02/22/18 Gastrografin enema 02/21 with copious stool resulting. However, still with stool in rectal vault. Deferring further management to surgery team, await recs. Cont Zosyn given bandemia, tachycardia and concern for toxic megacolon. 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 Clinically deteriorating. Going for surgery for perforation/free air. Near total colectomy performed. Became hypotensive, tachycardic with rates into 180s. Aggressively fluid resuscitated. 02/24/18 UOP, tachycardia improved. Cont abx. Initiate TPN. Monitoring for return of bowel fxn. 02/25/18 Given Kphos Transfused another 1U PRBCs. Stopped LR. Surgery to trial clamping NGT. Intermittently febrile- rectal Tylenol. 02/26/18 Did have fever overnight. Has tolerated NGT clamping. No O2 requirements. No N/V /CP. Hasn't been able to perform IS very well. 02/27/18 Remains on TPN, tolerating limited oral liquids earlier today however resultant emesis has required resumption of NG suction. Good output per ostomy; 2400 mL output reported during prior 24-hour period. Hemoglobin drifting down, ongoing hypokalemia-post being reassessed this afternoon. Potassium increased and TPN but may require supplemental boluses due to potassium lost in stool and emesis. Persistent tachycardia-may require additional blood transfusion. Remains on Zosyn for peritonitis; chest x-ray with pleural effusion but no evidence of pneumonia. May require repeat CT abdomen/pelvis to exclude intra-abdominal abscess. 02/28/18 Remains on TPN, electrolytes stable. Good urine output per ostomy but continues to have high volume output per NG. Output significantly higher than input, weight down, ongoing tachycardia--> 1 L fluid bolus tonight. Anticipate ongoing need for fluids to match fluid losses. CT abdomen/pelvis discussed with radiology this evening and subsequently with Dr. Hills; will review further with radiology tomorrow to determine if drainage can be performed of the subphrenic abscess percutaneously or if surgical drainage/washout will be needed due to presence of multiple smaller fluid collections suggestive of early abscesses. Dr. Hills notified patient 's parents of findings. Hemoglobin continues to drift down very slowly, may be slightly hemoconcentrated at present. Type and screen in a.m. Anticipating transfusion in the next 1-2 days. 03/01/18 OP Day - Exploratory laparotomy, drainage of multiple intraabdominal abscesses, fecal disimpaction, intraoperative flexible proctoscopy. Subdiaphragmatic abscess and left upper quadrant-discussed with radiology and message subsequently relayed to Dr. Hills regarding potential risk of percutaneous drainage. Patient tenably scheduled to return to the operating room later today. Several very small extensive gas in the pelvis without clear room enhancement to suggest abscess, may simply be postoperative change. Remains on TPN, electrolytes stable. Good urine output per ostomy but continues to have high volume output per NG. Output significantly higher than input, weight down, ongoing tachycardia--> 1 L fluid bolus this a.m. and continue normal saline at 100 mL per hour. 2 units PRBCs matched preoperatively; one being given prior to surgery for hemoglobin 7.4. 03/02/18 s/p ex lap with placement of drains by Dr. Hills. Febrile before surgery. WBC up post-op. Wound cx growing GPC, GNR, GPR. Continue Zosyn Remains on TPN, reduce K+. Good urine output. Output per NG down. Continued tachycardia. Continue IVF and treat pain. Output significantly higher than input, weight down, ongoing tachycardia--> 1 L fluid bolus this a.m. and continue normal saline at 100 mL per hour. Anticipate ongoing need for fluids to match fluid losses. 1 unit PRBCs given 03/01. Total of 4 units transfused Ferrlecit dose given 02/25, plan to repeat dose 03/04. Discussed with nursing who provide supplemental history; mother updated. Prognosis guarded. 03/03/18 s/p ex lap 03/01 with placement of drains by Dr. Hills. Afebrile and WBC down. Wound cx growing GPC, GNR, GPR. Continue Zosyn and fluconazole Continue TPN, K+ improved. Good urine output. Output per NG and ostomy down since 03/01 ex lap. Continued tachycardia. Continue IVF and treat pain. ? whether anxious. Trial of Ativan Anticipate ongoing need for fluids to match fluid losses. 1 unit PRBCs given 03/01. Total of 4 units transfused Ferrlecit dose given 02/25, plan to repeat dose 03/04. Discussed with nursing who provide supplemental history; mother updated. Prognosis guarded. 03/04/18 s/p ex lap 03/01 with placement of drains by Dr. Hills. Fever and WBC up slightly. Wound cx growing e coli, sensitive to Zosyn. Fluconazole. Check CXR Continue TPN, K+ improved. Good urine output. Output per NG and ostomy down since 03/01 ex lap. Continued tachycardia. Hold LR as patient with trace edema. Start fentanyl patch for pain. He got 28 mg iv morphine yesterday. Starting fentanyl at 12mcg d /t possible interaction with Fluconazole. 1 unit PRBCs given 03/01. Total of 4 units transfused Ferrlicit dose given 02/25, plan to repeat dose 03/04. Discussed with nursing who provide supplemental history. Encourage activity. Prognosis guarded 03/05/18 s/p ex lap 03/01 with placement of drains by Dr. Hills. Wound VAC. Fever. WBC down slightly. Wound cx growing e coli, sensitive to Zosyn. Fluconazole. Check CXR. Continue TPN, decrease Mg. Good urine output. Output per NG up yesterday. Continued tachycardia. Holding LR as patient with trace edema. Appears more comfortable with fentanyl patch for pain. Platelets trending up. Check inflammatory markers. If continued fever, consider repeating CT Encourage activity. 03/06/18 Temp elevations to 100.5 - 101.7. Persistent tachycardia in 130s. BP 100's. WBC with gradual trend down to 17.9 - was 25.0 on 03/02. Platelets trending up to 971 (was 407 on 03/02). Electrolytes and renal status stable - on TPN. Will continue with Zosyn and Diflucan for antimicrobial coverage. Continue with wound vac and drains. CT scan of ab/pelvis to exclude occult abscess formation. Encourage continued activities. 03/07/18 WBC with gradual trend down to 14.3 - was 17.9 on yesterday. Platelets elevated at 961 (was 971 yesterday). Hemoglobin persistently low at 7.6; with continued tachycardia will give 1 unit of pRBC. Electrolytes and renal status stable - on TPN. Will continue with Zosyn for antimicrobial coverage; Dr Gomez added Vancomycin and increased Diflucan to 200mg daily. Continue with wound vac and drains. CT scan of ab/pelvis showed possible new abscess formation in the suprapubic region and omental area. Encourage continued activities. 03/08/18 WBC with increase back to 17.1. HGB increased to 8.2 post transfusion yesterday. Pharm recommended changing Zosyn to Meropenem - did agree. Continue vancomycin and Diflucan. Will continue with TPN for nutritional support - NS bolus of 500cc to help with tachycardia. Continue with pain control. 03/09/18 Temp elevations continue. WBC with decrease to 15.6, but increased bands noted. Renal status and electrolytes stable. Continues of Meropenem, vancomycin, and Diflucan for coverage. Dr Gomez plan repeating CT scan with contrast (though NG) tomorrow to check for bowel function and further abscesses. TPN for nutritional and volume support. Continue with MS for pain, add Aspercreme for muscle discomfort. 03/10/18 Temp elevations continue. WBC 16.4. Renal status and electrolytes stable. Little change in overall status. CT ab/pelvis shown abscess with drain in place, however abscess has increased in size. Sx working to have drains flushed. Continues on Meropenem, vancomycin, and Diflucan for coverage. TPN for nutritional and volume support. Will give 500cc NS bolus to help improve BP. 03/11/18 Temp elevations continue. WBC trended down to 14. Renal status and electrolytes stable. Little change in overall status. CT ab/pelvis shown abscess with drain in place, however abscess has increased in size. Sx working to have drains flushed. Continues on Meropenem, vancomycin, and Diflucan for coverage. TPN for nutritional and volume support. Repeat 500cc NS bolus today and add metoprolol for tachycardia as BP allows. Continue pain control. 03/12/18 Temp elevations continue. WBC trended down to 12.7. Renal status and electrolytes stable. Little change in overall status. CT ab/pelvis shown abscess with drain in place, however abscess has increased in size per CT 03/10/18. Sx working to have drains flushed. Continues on Meropenem, vancomycin, and Diflucan for coverage. TPN for nutritional and volume support. Added q12hr metoprolol in attempt to control heart rate, only marginally working and could be titrated if blood pressure allows. Continue pain control. 03/13/18 WBC with trend down, but still with tachycardia and intermittent temp elevations. Continues on Meropenem, vancomycin, and Diflucan for coverage. TPN for nutritional and volume support. Continue pain control. 03/14/18 WBC with elevation to 13.4. CT showing decrease size of abscess. Continues on Meropenem, vancomycin, and Diflucan for coverage. TPN for nutritional and volume support. Electrolytes and renal status stable. Continue pain control. Continue activities as able.
--- NOTE | 2018-03-14 19:44 | Progress Note ---
DATE OF SERVICE 03/14/2018 FINDINGS Cosmo was seen this morning on rounds. He was a little more communicative today. He did not appear to be in acute distress. PHYSICAL EXAM VITAL SIGNS: Patient has been afebrile the majority of the day. At around midnight he did have a temperature of 101. He remains tachycardic in nature with a pulse of 146. ABDOMEN: Soft. Minimal tenderness noted with the left upper quadrant. Patient still with purulent drainage noted within Jose-Almazan drains coming forth from left upper quadrant. No navid peritoneal signs noted. LABORATORY/RADIOGRAPHIC EVALUATION Patient had a CBC today and his white count overall is stable at 13.4. Hemoglobin stable at 7.3. CMP was obtained and found to be without marked abnormalities. Alkaline phosphatase and ALT are slightly elevated, most likely secondary to hyperalimentation. The patient did undergo a CT scan of his abdomen and pelvis today in followup in regards to his intraabdominal abscesses. Fortunately the CT scan did reveal decreasing size of the multifocal left abdominal abscesses with drains in place. There were still residual abscess cavities noted but improvement, as above, was noted. ASSESSMENT 32-year-old gentleman with history for fecal peritonitis secondary to colonic rupture status post exploratory laparotomy with creation of end colostomy and Mendoza's pouch, status post repeat exploratory laparotomy with drainage of multiple intraabdominal abscesses with placement of intraperitoneal drains. Patient showing clinical and radiographic improvement. PLAN Continue with ongoing broad-spectrum antibiotics. I am quite pleased to see that his abscess cavities are decreasing in size. Would not recommend any need for surgical intervention therefore at this time. I would recommend that we "hold our course" with current care. SYLVAIN
[2018-03-14] MEDS: NS FLUSH BAG 500ml IV PRN (19:54)
[2018-03-15] MEDS: MEROPENEM 1 GM in NS 100 ML IV SCH ×3 (04:17→20:12)
[2018-03-15] MEDS: ALBUTEROL/IPRATROPIUM 2.5mg-0.5mg/3ml NEB IPPB SCH ×3 (07:00→20:40)
[2018-03-15] MEDS: MORPHINE SULFATE 4mg INJECTION IVP PRN ×2 (07:29→15:34)
--- NOTE | 2018-03-15 10:15 | XRay Report ---
Indication: check picc position PROCEDURE: XR chest 1V: Encounter: Initial Comparison: March 05, 2018 Findings: Right PICC line remains stable in position with the tip projecting over the lower SVC. Nasogastric tube remains in stable position. Stable small to moderate left pleural effusion with basilar compressive atelectasis. Right lung appears clear. No pneumothorax. Heart size and mediastinal contours are stable. Surgical drains and multiple lines projecting over the upper abdomen. Impression: Stable appropriate positioning of the right PICC line. .
[2018-03-15] MEDS: METOPROLOL 5mg/5ml INJECTION IVP SCH ×2 (10:37→21:04)
[2018-03-15] MEDS: PANTOPRAZOLE 40 MG INJECTION IVP SCH (10:37)
[2018-03-15] MEDS: CLINIMIX-E 5%/20% TPN - STANDARD FORMULA IV SCH (11:37)
[2018-03-15] MEDS ORDERED: .WATER FOR INJECTION,STERILE 10 ML VIAL ONE (13:30)
[2018-03-15] MEDS ORDERED: ALTEPLASE (Cathflo*) 2mg INJECTION IV ONE (13:42)
[2018-03-15] MEDS: FAT EMULSION 20% 250 ML IV SCH (15:36)
[2018-03-15] MEDS: FLUCONAZOLE PB 200 MG/100 ML BAG IV SCH (17:23)
--- NOTE | 2018-03-15 18:09 | Progress Note ---
DATE OF SERVICE 03/15/2018 FINDINGS Cosmo was seen earlier this morning on rounds. He was sitting up in the chair and was in good spirits. He was little more verbal today. PHYSICAL EXAM VITAL SIGNS: Patient has been afebrile today. Yesterday at 10 o'clock in the evening he did have a temperature spike to 101.5. He remains tachycardic. Normotensive. Please refer to EMR detail needed. ABDOMEN: Soft. Minimal tenderness noted within left upper quadrant. Wound VAC was in place and functioning. Left drains continue to have purulent material within them. LABORATORY/RADIOGRAPHIC EVALUATION Patient had a CBC today and his white count is stable at 13.7. Neutrophils are slightly elevated at 86%. Hemoglobin is stable at 7.4. BMP obtained and found to be essentially within normal limits. ASSESSMENT 32-year-old gentleman with history for fecal peritonitis secondary to colonic rupture, status post exploratory laparotomy, partial colectomy with creation of end colostomy and Mendoza's pouch, misfortune of developing postoperative intraabdominal abscesses requiring repeat laparotomy and drainage of multiple intraabdominal abscesses with placement of peritoneal drains. Patient making slow improvement. PLAN Continue with current care. One may wish to begin to clamp his NG and begin him on some clear liquids to see if he would begin to tolerate some diet. I would prefer to hopefully remove his NG and begin some enteral nutrition in the near future. Additionally, given his complicated course, will have Infectious Disease see the patient when she is available. SYLVAIN
--- NOTE | 2018-03-15 19:50 | Progress Note ---
- Date 03/15/18 Subjective: F/U: Toxic Megacolon, Perforation of splenic flexure, Multiple areas of intraabdominal abscess formation Resting in bed this evening but easily awakened. Nursing report was able to walk in halls today. Not seeing as much temp spike. Pain stable. Objective Vital signs: Temperature 99.5 F 03/15/18 16:00 Pulse Rate 120 H 03/15/18 16:45 Respiratory Rate 15 03/15/18 16:45 Blood Pressure 109/62 03/15/18 16:00 Pulse Oximetry 99 03/15/18 16:45 Rhythm: Sinus Tachycardia Height/Weight/BMI: Height 1.75 m Weight 62.2 kg Body Mass Index 22.5 - Constitutional Present: well developed, thin, cooperative - Routine HEENT Exam Head: Present: normocephalic, atraumatic Eye: Present: EOMI, PERRL - Routine Respiratory Exam Present: decreased breath sounds. Absent: respiratory distress - Routine Cardiovascular Exam Present: tachycardia (Regular) - Routine Abdominal Exam Present: non distended. Absent: normoactive bowel sounds (Decreased) - Routine Extremities Exam Present: pulses intact. Absent: cyanosis, clubbing - Routine Skin Exam Present: warm. Absent: dry (Moist) - Routine Neurological Exam Present: alert, vision grossly intact, hearing grossly intact - Routine Psychiatric Exam Absent: anxious, agitated Results - Labs CBC & Chem 7: 03/15/18 07:00 03/15/18 07:00 Microbiology Results: Microbiology 03/01/18 18:56 Abdomen, Left Upper Gram Stain - Final 03/01/18 18:56 Abdomen, Left Upper Surgical Culture - Final Escherichia coli Anaerobic Gram-Negative Bhanu Anaerobic Gram-Positive Cocci 02/23/18 20:15 Peripheral/Iv Start Gram Stain - Final Not performed 02/23/18 20:15 Peripheral/Iv Start Blood Culture - Final No Growth After 5 Days 02/23/18 20:05 Peripheral/Iv Start Gram Stain - Final Not performed 02/23/18 20:05 Peripheral/Iv Start Blood Culture - Final No Growth After 5 Days 02/20/18 20:07 Peripheral/Iv Start Blood Culture - Final No Growth After 5 Days Assessment and Plan (1) Megacolon Problem details: Toxic megacolon Current visit: Yes Status: Acute (2) Perforation of colon Problem details: Perforation of the splenic flexure due to ischemic changes Current visit: Yes Status: Acute Assessment and Plan: Assessment 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 Platelets with decrease to 594. Less temp elevations seen. Continues on Meropenem, vancomycin, and Diflucan for coverage. TPN for nutritional and volume support. Electrolytes and renal status stable. Dr Gomez trying NG clamping and clear liquids. Continue pain control. Continue activities as able. Repeat BMP tomorrow due to TPN. Will repeat CBC due to leukocytosis/ thrombocytosis. Discussed case with CCU nursing. DVT Prophylaxis: SCD's, Lovenox Resuscitation Status: Full Code - Time spent with patient Time with patient PN: 15 minutes - Physician Narrative Physician: Daniel Stevens MD Narrative: Date: 03/15/18 Time: 1946 Hospital Course Summary Disclaimer: The visit summary below is not to be considered part of the above Progress Note. Hospital Course: 02/20/18 Admit, CCU. Bowel rest - NPO. Cont IVF - 1/2 NS with Na of 144. Consult Dr. Gomez for mgt. Sx management with Protonix, morphine, Zofran. Cont IVF for tachycardia; sepsis. Repeat lactate. Cont Zosyn for bowel coverage. Follow BC results. Iron w/u in progress. Type & screen ordered. D/W with Dr. Stevens and RN. 02/22/18 Gastrografin enema 02/21 with copious stool resulting. However, still with stool in rectal vault. Deferring further management to surgery team, await recs. Cont Zosyn given bandemia, tachycardia and concern for toxic megacolon. 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 Clinically deteriorating. Going for surgery for perforation/free air. Near total colectomy performed. Became hypotensive, tachycardic with rates into 180s. Aggressively fluid resuscitated. 02/24/18 UOP, tachycardia improved. Cont abx. Initiate TPN. Monitoring for return of bowel fxn. 02/25/18 Given Kphos Transfused another 1U PRBCs. Stopped LR. Surgery to trial clamping NGT. Intermittently febrile- rectal Tylenol. 02/26/18 Did have fever overnight. Has tolerated NGT clamping. No O2 requirements. No N/V /CP. Hasn't been able to perform IS very well. 02/27/18 Remains on TPN, tolerating limited oral liquids earlier today however resultant emesis has required resumption of NG suction. Good output per ostomy; 2400 mL output reported during prior 24-hour period. Hemoglobin drifting down, ongoing hypokalemia-post being reassessed this afternoon. Potassium increased and TPN but may require supplemental boluses due to potassium lost in stool and emesis. Persistent tachycardia-may require additional blood transfusion. Remains on Zosyn for peritonitis; chest x-ray with pleural effusion but no evidence of pneumonia. May require repeat CT abdomen/pelvis to exclude intra-abdominal abscess. 02/28/18 Remains on TPN, electrolytes stable. Good urine output per ostomy but continues to have high volume output per NG. Output significantly higher than input, weight down, ongoing tachycardia--> 1 L fluid bolus tonight. Anticipate ongoing need for fluids to match fluid losses. CT abdomen/pelvis discussed with radiology this evening and subsequently with Dr. Hills; will review further with radiology tomorrow to determine if drainage can be performed of the subphrenic abscess percutaneously or if surgical drainage/washout will be needed due to presence of multiple smaller fluid collections suggestive of early abscesses. Dr. Hills notified patient 's parents of findings. Hemoglobin continues to drift down very slowly, may be slightly hemoconcentrated at present. Type and screen in a.m. Anticipating transfusion in the next 1-2 days. 03/01/18 OP Day - Exploratory laparotomy, drainage of multiple intraabdominal abscesses, fecal disimpaction, intraoperative flexible proctoscopy. Subdiaphragmatic abscess and left upper quadrant-discussed with radiology and message subsequently relayed to Dr. Hills regarding potential risk of percutaneous drainage. Patient tenably scheduled to return to the operating room later today. Several very small extensive gas in the pelvis without clear room enhancement to suggest abscess, may simply be postoperative change. Remains on TPN, electrolytes stable. Good urine output per ostomy but continues to have high volume output per NG. Output significantly higher than input, weight down, ongoing tachycardia--> 1 L fluid bolus this a.m. and continue normal saline at 100 mL per hour. 2 units PRBCs matched preoperatively; one being given prior to surgery for hemoglobin 7.4. 03/02/18 s/p ex lap with placement of drains by Dr. Hills. Febrile before surgery. WBC up post-op. Wound cx growing GPC, GNR, GPR. Continue Zosyn Remains on TPN, reduce K+. Good urine output. Output per NG down. Continued tachycardia. Continue IVF and treat pain. Output significantly higher than input, weight down, ongoing tachycardia--> 1 L fluid bolus this a.m. and continue normal saline at 100 mL per hour. Anticipate ongoing need for fluids to match fluid losses. 1 unit PRBCs given 03/01. Total of 4 units transfused Ferrlecit dose given 02/25, plan to repeat dose 03/04. Discussed with nursing who provide supplemental history; mother updated. Prognosis guarded. 03/03/18 s/p ex lap 03/01 with placement of drains by Dr. Hills. Afebrile and WBC down. Wound cx growing GPC, GNR, GPR. Continue Zosyn and fluconazole Continue TPN, K+ improved. Good urine output. Output per NG and ostomy down since 03/01 ex lap. Continued tachycardia. Continue IVF and treat pain. ? whether anxious. Trial of Ativan Anticipate ongoing need for fluids to match fluid losses. 1 unit PRBCs given 03/01. Total of 4 units transfused Ferrlecit dose given 02/25, plan to repeat dose 03/04. Discussed with nursing who provide supplemental history; mother updated. Prognosis guarded. 03/04/18 s/p ex lap 03/01 with placement of drains by Dr. Hills. Fever and WBC up slightly. Wound cx growing e coli, sensitive to Zosyn. Fluconazole. Check CXR Continue TPN, K+ improved. Good urine output. Output per NG and ostomy down since 03/01 ex lap. Continued tachycardia. Hold LR as patient with trace edema. Start fentanyl patch for pain. He got 28 mg iv morphine yesterday. Starting fentanyl at 12mcg d /t possible interaction with Fluconazole. 1 unit PRBCs given 03/01. Total of 4 units transfused Ferrlicit dose given 02/25, plan to repeat dose 03/04. Discussed with nursing who provide supplemental history. Encourage activity. Prognosis guarded 03/05/18 s/p ex lap 03/01 with placement of drains by Dr. Hills. Wound VAC. Fever. WBC down slightly. Wound cx growing e coli, sensitive to Zosyn. Fluconazole. Check CXR. Continue TPN, decrease Mg. Good urine output. Output per NG up yesterday. Continued tachycardia. Holding LR as patient with trace edema. Appears more comfortable with fentanyl patch for pain. Platelets trending up. Check inflammatory markers. If continued fever, consider repeating CT Encourage activity. 03/06/18 Temp elevations to 100.5 - 101.7. Persistent tachycardia in 130s. BP 100's. WBC with gradual trend down to 17.9 - was 25.0 on 03/02. Platelets trending up to 971 (was 407 on 03/02). Electrolytes and renal status stable - on TPN. Will continue with Zosyn and Diflucan for antimicrobial coverage. Continue with wound vac and drains. CT scan of ab/pelvis to exclude occult abscess formation. Encourage continued activities. 03/07/18 WBC with gradual trend down to 14.3 - was 17.9 on yesterday. Platelets elevated at 961 (was 971 yesterday). Hemoglobin persistently low at 7.6; with continued tachycardia will give 1 unit of pRBC. Electrolytes and renal status stable - on TPN. Will continue with Zosyn for antimicrobial coverage; Dr Gomez added Vancomycin and increased Diflucan to 200mg daily. Continue with wound vac and drains. CT scan of ab/pelvis showed possible new abscess formation in the suprapubic region and omental area. Encourage continued activities. 03/08/18 WBC with increase back to 17.1. HGB increased to 8.2 post transfusion yesterday. Pharm recommended changing Zosyn to Meropenem - did agree. Continue vancomycin and Diflucan. Will continue with TPN for nutritional support - NS bolus of 500cc to help with tachycardia. Continue with pain control. 03/09/18 Temp elevations continue. WBC with decrease to 15.6, but increased bands noted. Renal status and electrolytes stable. Continues of Meropenem, vancomycin, and Diflucan for coverage. Dr Gomez plan repeating CT scan with contrast (though NG) tomorrow to check for bowel function and further abscesses. TPN for nutritional and volume support. Continue with MS for pain, add Aspercreme for muscle discomfort. 03/10/18 Temp elevations continue. WBC 16.4. Renal status and electrolytes stable. Little change in overall status. CT ab/pelvis shown abscess with drain in place, however abscess has increased in size. Sx working to have drains flushed. Continues on Meropenem, vancomycin, and Diflucan for coverage. TPN for nutritional and volume support. Will give 500cc NS bolus to help improve BP. 03/11/18 Temp elevations continue. WBC trended down to 14. Renal status and electrolytes stable. Little change in overall status. CT ab/pelvis shown abscess with drain in place, however abscess has increased in size. Sx working to have drains flushed. Continues on Meropenem, vancomycin, and Diflucan for coverage. TPN for nutritional and volume support. Repeat 500cc NS bolus today and add metoprolol for tachycardia as BP allows. Continue pain control. 03/12/18 Temp elevations continue. WBC trended down to 12.7. Renal status and electrolytes stable. Little change in overall status. CT ab/pelvis shown abscess with drain in place, however abscess has increased in size per CT 03/10/18. Sx working to have drains flushed. Continues on Meropenem, vancomycin, and Diflucan for coverage. TPN for nutritional and volume support. Added q12hr metoprolol in attempt to control heart rate, only marginally working and could be titrated if blood pressure allows. Continue pain control. 03/13/18 WBC with trend down, but still with tachycardia and intermittent temp elevations. Continues on Meropenem, vancomycin, and Diflucan for coverage. TPN for nutritional and volume support. Continue pain control. 03/14/18 WBC with elevation to 13.4. CT showing decrease size of abscess. Continues on Meropenem, vancomycin, and Diflucan for coverage. TPN for nutritional and volume support. Electrolytes and renal status stable. Continue pain control. Continue activities as able. 03/15/18 WBC with stable at 13.7. Platelets with decrease to 594. Less temp elevations seen. Continues on Meropenem, vancomycin, and Diflucan for coverage. TPN for nutritional and volume support. Electrolytes and renal status stable. Dr Gomez trying NG clamping and clear liquids. Continue pain control. Continue activities as able.
[2018-03-15] MEDS: SALINE FLUSH 10ml SYRINGE IVF PRN (20:12)
[2018-03-15] MEDS: NS FLUSH BAG 500ml IV PRN (20:13)
[2018-03-16] MEDS: MORPHINE SULFATE 4mg INJECTION IVP PRN ×2 (00:14→13:46)
[2018-03-16] MEDS: SALINE FLUSH 10ml SYRINGE IVF PRN ×3 (00:15→19:35)
[2018-03-16] MEDS: MEROPENEM 1 GM in NS 100 ML IV SCH ×3 (03:30→19:33)
--- NOTE | 2018-03-16 07:39 | General Surgery Progress Note ---
Subjective Narrative: He is in bed this morning, awakens quickly when calling his name gently. When asked about abdominal pain he said yes, but unable to pinpoint a specific area. When asked if the pain is "all over" he states yes. Denied nausea. He ambulated in the unit yesterday. [place] with clear yellow urine. There are a few bowel sounds. No stool in ostomy bag. Staff have had to release gas from bag during the night. The CLIFTON drainage is getting thinner and slightly more volume per staff. The upper most CLIFTON leaks most of the irrigant out around the outside of the tube if pressure not held on the skin during instillation. After instillation drainage is into the CLIFTON, not from the around the outside of the CLIFTON. NG has been clamped since last evening and clear liquids started, no nausea at this time. - Vital Signs Last Vital Signs Temp 98.9 F 03/16/18 04:00 Pulse 127 H 03/16/18 05:00 Resp 19 03/16/18 05:00 BP 110/67 03/16/18 05:00 Pulse Ox 98 03/16/18 05:00 - Laboratory Result Diagrams: 03/16/18 04:48 03/16/18 04:48 Assessment and Plan (1) Impaction of colon Current Visit: Yes Status: Acute (2) Megacolon Current Visit: Yes Status: Acute Problem details: Toxic megacolon (3) Mild epistaxis Current Visit: Yes Status: Acute (4) Postoperative intra-abdominal abscess Current Visit: Yes Status: Acute Qualifiers: Encounter type: initial encounter Qualified Code(s): T81.4XXA - Infection following a procedure, initial encounter; K65.1 - Peritoneal abscess (5) Perforated sigmoid colon Current Visit: Yes Status: Acute (6) Colostomy in place Current Visit: Yes Status: Chronic (7) 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 Continue PT, ambulation. Keep NG clamped and clear liquid diet, place back to suction if nausea, vomiting , increased distention. Hope to see some liquid in ostomy and advance diet soon. Hospital Course Summary Disclaimer: The visit summary below is not to be considered part of the above Progress Note. Hospital Course: 02/20/18 Admit, CCU. Bowel rest - NPO. Cont IVF - 1/2 NS with Na of 144. Consult Dr. Gomez for mgt. Sx management with Protonix, morphine, Zofran. Cont IVF for tachycardia; sepsis. Repeat lactate. Cont Zosyn for bowel coverage. Follow BC results. Iron w/u in progress. Type & screen ordered. D/W with Dr. Stevens and RN. 02/22/18 Gastrografin enema 02/21 with copious stool resulting. However, still with stool in rectal vault. Deferring further management to surgery team, await recs. Cont Zosyn given bandemia, tachycardia and concern for toxic megacolon. 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 Clinically deteriorating. Going for surgery for perforation/free air. Near total colectomy performed. Became hypotensive, tachycardic with rates into 180s. Aggressively fluid resuscitated. 02/24/18 UOP, tachycardia improved. Cont abx. Initiate TPN. Monitoring for return of bowel fxn. 02/25/18 Given Kphos Transfused another 1U PRBCs. Stopped LR. Surgery to trial clamping NGT. Intermittently febrile- rectal Tylenol. 02/26/18 Did have fever overnight. Has tolerated NGT clamping. No O2 requirements. No N/V /CP. Hasn't been able to perform IS very well. 02/27/18 Remains on TPN, tolerating limited oral liquids earlier today however resultant emesis has required resumption of NG suction. Good output per ostomy; 2400 mL output reported during prior 24-hour period. Hemoglobin drifting down, ongoing hypokalemia-post being reassessed this afternoon. Potassium increased and TPN but may require supplemental boluses due to potassium lost in stool and emesis. Persistent tachycardia-may require additional blood transfusion. Remains on Zosyn for peritonitis; chest x-ray with pleural effusion but no evidence of pneumonia. May require repeat CT abdomen/pelvis to exclude intra-abdominal abscess. 02/28/18 Remains on TPN, electrolytes stable. Good urine output per ostomy but continues to have high volume output per NG. Output significantly higher than input, weight down, ongoing tachycardia--> 1 L fluid bolus tonight. Anticipate ongoing need for fluids to match fluid losses. CT abdomen/pelvis discussed with radiology this evening and subsequently with Dr. Hills; will review further with radiology tomorrow to determine if drainage can be performed of the subphrenic abscess percutaneously or if surgical drainage/washout will be needed due to presence of multiple smaller fluid collections suggestive of early abscesses. Dr. Hills notified patient 's parents of findings. Hemoglobin continues to drift down very slowly, may be slightly hemoconcentrated at present. Type and screen in a.m. Anticipating transfusion in the next 1-2 days. 03/01/18 OP Day - Exploratory laparotomy, drainage of multiple intraabdominal abscesses, fecal disimpaction, intraoperative flexible proctoscopy. Subdiaphragmatic abscess and left upper quadrant-discussed with radiology and message subsequently relayed to Dr. Hills regarding potential risk of percutaneous drainage. Patient tenably scheduled to return to the operating room later today. Several very small extensive gas in the pelvis without clear room enhancement to suggest abscess, may simply be postoperative change. Remains on TPN, electrolytes stable. Good urine output per ostomy but continues to have high volume output per NG. Output significantly higher than input, weight down, ongoing tachycardia--> 1 L fluid bolus this a.m. and continue normal saline at 100 mL per hour. 2 units PRBCs matched preoperatively; one being given prior to surgery for hemoglobin 7.4. 03/02/18 s/p ex lap with placement of drains by Dr. Hills. Febrile before surgery. WBC up post-op. Wound cx growing GPC, GNR, GPR. Continue Zosyn Remains on TPN, reduce K+. Good urine output. Output per NG down. Continued tachycardia. Continue IVF and treat pain. Output significantly higher than input, weight down, ongoing tachycardia--> 1 L fluid bolus this a.m. and continue normal saline at 100 mL per hour. Anticipate ongoing need for fluids to match fluid losses. 1 unit PRBCs given 03/01. Total of 4 units transfused Ferrlecit dose given 02/25, plan to repeat dose 03/04. Discussed with nursing who provide supplemental history; mother updated. Prognosis guarded. 03/03/18 s/p ex lap 03/01 with placement of drains by Dr. Hills. Afebrile and WBC down. Wound cx growing GPC, GNR, GPR. Continue Zosyn and fluconazole Continue TPN, K+ improved. Good urine output. Output per NG and ostomy down since 03/01 ex lap. Continued tachycardia. Continue IVF and treat pain. ? whether anxious. Trial of Ativan Anticipate ongoing need for fluids to match fluid losses. 1 unit PRBCs given 03/01. Total of 4 units transfused Ferrlecit dose given 02/25, plan to repeat dose 03/04. Discussed with nursing who provide supplemental history; mother updated. Prognosis guarded. 03/04/18 s/p ex lap 03/01 with placement of drains by Dr. Hills. Fever and WBC up slightly. Wound cx growing e coli, sensitive to Zosyn. Fluconazole. Check CXR Continue TPN, K+ improved. Good urine output. Output per NG and ostomy down since 03/01 ex lap. Continued tachycardia. Hold LR as patient with trace edema. Start fentanyl patch for pain. He got 28 mg iv morphine yesterday. Starting fentanyl at 12mcg d /t possible interaction with Fluconazole. 1 unit PRBCs given 03/01. Total of 4 units transfused Ferrlicit dose given 02/25, plan to repeat dose 03/04. Discussed with nursing who provide supplemental history. Encourage activity. Prognosis guarded 03/05/18 s/p ex lap 03/01 with placement of drains by Dr. Hills. Wound VAC. Fever. WBC down slightly. Wound cx growing e coli, sensitive to Zosyn. Fluconazole. Check CXR. Continue TPN, decrease Mg. Good urine output. Output per NG up yesterday. Continued tachycardia. Holding LR as patient with trace edema. Appears more comfortable with fentanyl patch for pain. Platelets trending up. Check inflammatory markers. If continued fever, consider repeating CT Encourage activity. 03/06/18 Temp elevations to 100.5 - 101.7. Persistent tachycardia in 130s. BP 100's. WBC with gradual trend down to 17.9 - was 25.0 on 03/02. Platelets trending up to 971 (was 407 on 03/02). Electrolytes and renal status stable - on TPN. Will continue with Zosyn and Diflucan for antimicrobial coverage. Continue with wound vac and drains. CT scan of ab/pelvis to exclude occult abscess formation. Encourage continued activities. 03/07/18 WBC with gradual trend down to 14.3 - was 17.9 on yesterday. Platelets elevated at 961 (was 971 yesterday). Hemoglobin persistently low at 7.6; with continued tachycardia will give 1 unit of pRBC. Electrolytes and renal status stable - on TPN. Will continue with Zosyn for antimicrobial coverage; Dr Gomez added Vancomycin and increased Diflucan to 200mg daily. Continue with wound vac and drains. CT scan of ab/pelvis showed possible new abscess formation in the suprapubic region and omental area. Encourage continued activities. 03/08/18 WBC with increase back to 17.1. HGB increased to 8.2 post transfusion yesterday. Pharm recommended changing Zosyn to Meropenem - did agree. Continue vancomycin and Diflucan. Will continue with TPN for nutritional support - NS bolus of 500cc to help with tachycardia. Continue with pain control. 03/09/18 Temp elevations continue. WBC with decrease to 15.6, but increased bands noted. Renal status and electrolytes stable. Continues of Meropenem, vancomycin, and Diflucan for coverage. Dr Gomez plan repeating CT scan with contrast (though NG) tomorrow to check for bowel function and further abscesses. TPN for nutritional and volume support. Continue with MS for pain, add Aspercreme for muscle discomfort. 03/10/18 Temp elevations continue. WBC 16.4. Renal status and electrolytes stable. Little change in overall status. CT ab/pelvis shown abscess with drain in place, however abscess has increased in size. Sx working to have drains flushed. Continues on Meropenem, vancomycin, and Diflucan for coverage. TPN for nutritional and volume support. Will give 500cc NS bolus to help improve BP. 03/11/18 Temp elevations continue. WBC trended down to 14. Renal status and electrolytes stable. Little change in overall status. CT ab/pelvis shown abscess with drain in place, however abscess has increased in size. Sx working to have drains flushed. Continues on Meropenem, vancomycin, and Diflucan for coverage. TPN for nutritional and volume support. Repeat 500cc NS bolus today and add metoprolol for tachycardia as BP allows. Continue pain control. 03/12/18 Temp elevations continue. WBC trended down to 12.7. Renal status and electrolytes stable. Little change in overall status. CT ab/pelvis shown abscess with drain in place, however abscess has increased in size per CT 03/10/18. Sx working to have drains flushed. Continues on Meropenem, vancomycin, and Diflucan for coverage. TPN for nutritional and volume support. Added q12hr metoprolol in attempt to control heart rate, only marginally working and could be titrated if blood pressure allows. Continue pain control. 03/13/18 WBC with trend down, but still with tachycardia and intermittent temp elevations. Continues on Meropenem, vancomycin, and Diflucan for coverage. TPN for nutritional and volume support. Continue pain control. 03/14/18 WBC with elevation to 13.4. CT showing decrease size of abscess. Continues on Meropenem, vancomycin, and Diflucan for coverage. TPN for nutritional and volume support. Electrolytes and renal status stable. Continue pain control. Continue activities as able. 03/15/18 WBC with stable at 13.7. Platelets with decrease to 594. Less temp elevations seen. Continues on Meropenem, vancomycin, and Diflucan for coverage. TPN for nutritional and volume support. Electrolytes and renal status stable. Dr Gomez trying NG clamping and clear liquids. Continue pain control. Continue activities as able.
[2018-03-16] MEDS: ALBUTEROL/IPRATROPIUM 2.5mg-0.5mg/3ml NEB IPPB SCH ×3 (08:07→21:11)
--- NOTE | 2018-03-16 08:57 | Pharmacy Consult-TPN/PPN ---
Pharmacy Consult-TPN/PPN - Laboratory Information Chemistry Turbidity < 20 (0-20) 03/16/18 04:48 Sodium 138 MEQ/L (136-146) 03/16/18 04:48 Potassium 4.4 MEQ/L (3.6-5) 03/16/18 04:48 Chloride 104 MEQ/L (98-107) 03/16/18 04:48 Carbon Dioxide 25 MEQ/L (22-30) 03/16/18 04:48 Anion Gap 9 meq/L (5-15) 03/16/18 04:48 BUN 14.0 MG/DL (9-20) 03/16/18 04:48 Creatinine 0.4 mg/dL (0.8-1.5) L 03/16/18 04:48 GFR Calculation 253 03/16/18 04:48 BUN/Creatinine Ratio 35 RATIO (6-26) H 03/16/18 04:48 Glucose 102 MG/DL (75-110) 03/16/18 04:48 Glucometer 139 mg/dL (65-110) 03/16/18 06:09 Calculated Osmolality 267 MOSM/KG (261-280) 03/16/18 04:48 Calcium 7.8 MG/DL (8.4-10.2) L 03/16/18 04:48 Ionized Calcium [place] 1.11 MMOL/L (1.12-1.32) L 02/25/18 04:20 Phosphorus 4.7 MG/DL (2.5-4.5) H 03/14/18 04:00 Magnesium 2.2 MG/DL (1.6-2.3) 03/14/18 04:00 Iron 11 ug/dL (49-181) L 02/20/18 20:07 TIBC 342 ug/dL (261-497) 02/20/18 20:07 % Saturation 3 % (13-59) L 02/20/18 20:07 Ferritin 2.44 ng/mL (17-464) L 02/20/18 20:07 Total Bilirubin 0.50 MG/DL (0.20-1.30) 03/14/18 04:00 Icterus Index < 2 (0-7) 03/16/18 04:48 AST 53 U/L (17-59) 03/14/18 04:00 ALT 51 U/L (1-50) H 03/14/18 04:00 Alkaline Phosphatase 198 U/L (38-126) H 03/14/18 04:00 C-Reactive Protein 181.6 mg/L (0-9) H 03/14/18 04:00 Total Protein 5.8 g/dL (6.3-8.2) L 03/14/18 04:00 Albumin 2.6 g/dL (3.5-5.0) L 03/14/18 04:00 Globulin 3.2 G/DL (2.4-3.6) 03/14/18 04:00 Albumin/Globulin Ratio 0.8 RATIO (1.1-2.2) L 03/14/18 04:00 Lipase 21 U/L (23-300) L 02/20/18 15:25 Plasma Lactate 1.3 MMOL/L (0.6-2.2) 02/24/18 04:13 Vitamin B12 367 pg/mL (239-931) 02/20/18 20:07 Procalcitonin < 0.05 NG/ML 02/21/18 04:11 Specimen Hemolysis < 15 (0-25) 03/16/18 04:48 Intake and Output 03/15/18 03/16/18 03/17/18 06:59 06:59 06:59 Intake Total 4110.000 / 4110.000 4210.5455 / 4210.5455 100 / 100 Output Total 7676 / 7676 3697 / 3697 Balance -3566.000 / -3566.575 717.8761 / 513.5455 100 / 100 Weight 64.2 kg 62.2 kg Intake: IV 4050.000 / 4050.000 3650.5455 / 3650.5455 100 / 100 Fat Emulsion 20% 250 ml @ 25 250.000 / 250.000 250 / 250 mls/hr IV 1600 [facility] Rx#: [id number] Fluconazole Pb 200 mg In 100 ml 100 / 100 100 / 100 @ 100 mls/hr IV Q24H [facility] Rx#: [id number] Meropenem 1 gm In Ns 100 ml @ 300 / 300 300 / 300 200 mls/hr IV Q8H [facility] Rx#: [id number] Multi-Vit Infusion 10 ml Multi 2400.000 / 2400.000 2000.5455 / 2000.5455 100 / 100 -Trace Elements 1 ml SODIUM PHOSPHATE (mEq) 20 meq In TPN - Standard Formula 2,000 ml @ 100 mls/hr IV .[id number] [facility] Rx#: [id number] Vancomycin 1,250 mg In NS 250ml 1000.000 / 3788.132 8253.000 / 1000.000 250 ml @ 200 mls/hr IV Q6H [facility] Rx#:[id number] Oral 240 / 240 Intake, Gastric Tube Irrigant 60 / 60 20 / 20 Amount Left Nare 60 / 60 20 / 20 Intake, Catheter Irrigant 300 / 300 Amount Output: Stool 775 / 775 148 / 148 Urine Amount (Catheter) 5131 / 5131 3130 / 3130 Gastric Drainage 1400 / 1400 Left Nare 1400 / 1400 Wound Drainage 370 / 370 419 / 419 Abdomen 25 / 25 50 / 50 Left Anterior Medial Abdomen 175 / 175 155 / 155 Left Lower Abdomen 80 / 80 81 / 81 Left Lower Lateral Abdomen 75 / 75 125 / 125 Right Anterior Medial Abdomen 10 / 10 5 / 5 Right Lower Lateral Abdomen 5 / 5 3 / 3 Other: Urine Appearance Clear Sediment Urine Color Yellow Yellow Urine Odor Normal Stool Color Brown Brown Stool Consistency Liquid Liquid Drain Type Left Anterior Medial Abdomen Bulb [place] Bulb [place] Left Lower Abdomen Bulb [place] Bulb [place] Left Lower Lateral Abdomen Bulb [place] Bulb [place] Right Anterior Medial Abdomen Bulb [place] Bulb [place] Right Lower Lateral Abdomen Bulb [place] Bulb [place] - Consult Information We will remove added sodium phosphate from TPN formula. New bag to be hung at 1600 today. Continue same rate. I ordered a phosphorous in a.m. Thanks
[2018-03-16] MEDS: PANTOPRAZOLE 40 MG INJECTION IVP SCH (09:35)
[2018-03-16] MEDS: METOPROLOL 5mg/5ml INJECTION IVP SCH ×2 (09:38→20:30)
[2018-03-16] MEDS: ENOXAPARIN 40 MG/0.4 ML INJECTION SQ SCH (09:43)
[2018-03-16] MEDS: CLINIMIX-E 5%/20% TPN - STANDARD FORMULA IV SCH (10:29)
--- NOTE | 2018-03-16 14:21 | Wound Care Progress Note ---
Wound Center Progress Note: Pt seen for wound/ostomy follow up. Pt resting in bed. FLACC-1. Pt pre- medicated before vac dressing change. Vac canister has 500 mL of serosanguineous drainage. Wound vac dressing collapsed without leaks, running at 125 mm Hg continuous pressure. Mid line surgical incision: Improved, red, granulating tissue, active scant sanguineous drainage. Periwound: WDNL. Vac dressing reapplied, black foam collapsed without leaks, running at 125 mm Hg. Ileostomy pouching system intact without leaks. Pouch has greenish brown semi- liquid drainage. Nursing staff reports good stool and gas output. Continue to change pouching system PRN. Continue with wound vac dressing changes M/R. Pt tolerated procedure well.
--- NOTE | 2018-03-16 16:24 | Progress Note ---
DATE 03/16/2018 FINDINGS Cosmo was seen today on rounds. He was in good spirits. He was eating a popsicle. His mother and grandmother were present. Nursing states that the patient has had a fair amount of air within his colostomy. Mother states the patient has been stating that he is "hungry". OBJECTIVE VITALS: Afebrile (this is the first time since I have been taking care of Cosmo that he has been afebrile in 24 hours). He remains slightly tachycardic. Normotensive. ABDOMEN: Soft. Minimal incisional tenderness. One can see purulent material within the Jose-Almazan drains within the left upper quadrant. LABORATORY/RADIOGRAPHIC EVALUATION Patient had a CBC today and his white count is stable at 11.7. Hemoglobin is 7.3. BMP obtained and found to be essentially within normal limits. 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 Status post repeat exploratory laparotomy with drainage of multiple intraabdominal abscesses and placement of peritoneal drains with subsequent additional formation of intraabdominal abscesses which has been improving with antibiotic therapy and irrigation of CLIFTON drains. Patient making clinical improvement. PLAN DC NG. Begin on full liquids. Continue with current care. Will request Dr. Ac to see the patient from an Infectious Disease standpoint and give forth additional recommendations from an antibiotic standpoint. I am pleased with the patient's progress at this time. SYLVAIN
[2018-03-16] MEDS: FAT EMULSION 20% 250 ML IV SCH (17:04)
[2018-03-16] MEDS: FLUCONAZOLE PB 200 MG/100 ML BAG IV SCH (18:25)
[2018-03-16] MEDS: ACETAMINOPHEN 650 MG SUPPOSITORY PR PRN (19:16)
[2018-03-16] MEDS: NS FLUSH BAG 500ml IV PRN (19:34)
--- NOTE | 2018-03-16 21:20 | Progress Note ---
- Date 03/16/18 Subjective: F/U: Toxic Megacolon, Perforation of splenic flexure, Multiple areas of intraabdominal abscess formation Had a better day today. Walked twice with nursing, up in chair more. NG removed- Nursing notes some nausea. Did have temp elevation this evening to 100.3-prior temp elevation was on 03/14 and 101.5. Objective Vital signs: Temperature 99.6 F 03/16/18 16:00 Pulse Rate 141 H 03/16/18 17:30 Respiratory Rate 18 03/16/18 17:54 Blood Pressure 103/64 03/16/18 10:02 Pulse Oximetry 97 03/16/18 17:30 Rhythm: Sinus Tachycardia Height/Weight/BMI: Height 1.75 m Weight 61.2 kg Body Mass Index 22.5 - Constitutional Present: well developed, thin, cooperative - Routine HEENT Exam Head: Present: normocephalic, atraumatic Eye: Present: EOMI, PERRL - Routine Respiratory Exam Present: decreased breath sounds. Absent: respiratory distress - Routine Cardiovascular Exam Present: tachycardia (Regular) - Routine Abdominal Exam Present: soft. Absent: normoactive bowel sounds (Decreased), non distended - Routine Extremities Exam Present: edema (Trace edema), pulses intact. Absent: cyanosis, clubbing - Routine Musculoskeletal Exam Musculoskeletal: Present: no clubbing or cyanosis - Routine Skin Exam Present: warm. Absent: dry (Moist) - Routine Neurological Exam Present: alert, vision grossly intact, hearing grossly intact - Routine Psychiatric Exam Present: normal affect Results - Labs CBC & Chem 7: 03/16/18 04:48 03/16/18 04:48 Microbiology Results: Microbiology 03/01/18 18:56 Abdomen, Left Upper Gram Stain - Final 03/01/18 18:56 Abdomen, Left Upper Surgical Culture - Final Escherichia coli Anaerobic Gram-Negative Bhanu Anaerobic Gram-Positive Cocci 02/23/18 20:15 Peripheral/Iv Start Gram Stain - Final Not performed 02/23/18 20:15 Peripheral/Iv Start Blood Culture - Final No Growth After 5 Days 02/23/18 20:05 Peripheral/Iv Start Gram Stain - Final Not performed 02/23/18 20:05 Peripheral/Iv Start Blood Culture - Final No Growth After 5 Days 02/20/18 20:07 Peripheral/Iv Start Blood Culture - Final No Growth After 5 Days Assessment and Plan (1) Megacolon Problem details: Toxic megacolon Current visit: Yes Status: Acute (2) Perforation of colon Problem details: Perforation of the splenic flexure due to ischemic changes Current visit: Yes Status: Acute Assessment and Plan: Assessment 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 Platelets with decrease to 546. Less temp elevations seen. Continues on Meropenem, vancomycin, and Diflucan for coverage. TPN for nutritional and volume support. Electrolytes and renal status stable. NG removed; clear liquids. Continue pain control. Continue activities as able. Repeat BMP tomorrow due to TPN. Will repeat CBC due to leukocytosis/ thrombocytosis. Discussed case with CCU nursing. DVT Prophylaxis: SCD's, Lovenox Resuscitation Status: Full Code - Time spent with patient Time with patient PN: 15 minutes - Physician Narrative Physician: Daniel Stevens MD Narrative: Date: 03/16/18 Time: 2115 Hospital Course Summary Disclaimer: The visit summary below is not to be considered part of the above Progress Note. Hospital Course: 02/20/18 Admit, CCU. Bowel rest - NPO. Cont IVF - 1/2 NS with Na of 144. Consult Dr. Gomez for mgt. Sx management with Protonix, morphine, Zofran. Cont IVF for tachycardia; sepsis. Repeat lactate. Cont Zosyn for bowel coverage. Follow BC results. Iron w/u in progress. Type & screen ordered. D/W with Dr. Stevens and RN. 02/22/18 Gastrografin enema 02/21 with copious stool resulting. However, still with stool in rectal vault. Deferring further management to surgery team, await recs. Cont Zosyn given bandemia, tachycardia and concern for toxic megacolon. 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 Clinically deteriorating. Going for surgery for perforation/free air. Near total colectomy performed. Became hypotensive, tachycardic with rates into 180s. Aggressively fluid resuscitated. 02/24/18 UOP, tachycardia improved. Cont abx. Initiate TPN. Monitoring for return of bowel fxn. 02/25/18 Given Kphos Transfused another 1U PRBCs. Stopped LR. Surgery to trial clamping NGT. Intermittently febrile- rectal Tylenol. 02/26/18 Did have fever overnight. Has tolerated NGT clamping. No O2 requirements. No N/V /CP. Hasn't been able to perform IS very well. 02/27/18 Remains on TPN, tolerating limited oral liquids earlier today however resultant emesis has required resumption of NG suction. Good output per ostomy; 2400 mL output reported during prior 24-hour period. Hemoglobin drifting down, ongoing hypokalemia-post being reassessed this afternoon. Potassium increased and TPN but may require supplemental boluses due to potassium lost in stool and emesis. Persistent tachycardia-may require additional blood transfusion. Remains on Zosyn for peritonitis; chest x-ray with pleural effusion but no evidence of pneumonia. May require repeat CT abdomen/pelvis to exclude intra-abdominal abscess. 02/28/18 Remains on TPN, electrolytes stable. Good urine output per ostomy but continues to have high volume output per NG. Output significantly higher than input, weight down, ongoing tachycardia--> 1 L fluid bolus tonight. Anticipate ongoing need for fluids to match fluid losses. CT abdomen/pelvis discussed with radiology this evening and subsequently with Dr. Hills; will review further with radiology tomorrow to determine if drainage can be performed of the subphrenic abscess percutaneously or if surgical drainage/washout will be needed due to presence of multiple smaller fluid collections suggestive of early abscesses. Dr. Hills notified patient 's parents of findings. Hemoglobin continues to drift down very slowly, may be slightly hemoconcentrated at present. Type and screen in a.m. Anticipating transfusion in the next 1-2 days. 03/01/18 OP Day - Exploratory laparotomy, drainage of multiple intraabdominal abscesses, fecal disimpaction, intraoperative flexible proctoscopy. Subdiaphragmatic abscess and left upper quadrant-discussed with radiology and message subsequently relayed to Dr. Hills regarding potential risk of percutaneous drainage. Patient tenably scheduled to return to the operating room later today. Several very small extensive gas in the pelvis without clear room enhancement to suggest abscess, may simply be postoperative change. Remains on TPN, electrolytes stable. Good urine output per ostomy but continues to have high volume output per NG. Output significantly higher than input, weight down, ongoing tachycardia--> 1 L fluid bolus this a.m. and continue normal saline at 100 mL per hour. 2 units PRBCs matched preoperatively; one being given prior to surgery for hemoglobin 7.4. 03/02/18 s/p ex lap with placement of drains by Dr. Hills. Febrile before surgery. WBC up post-op. Wound cx growing GPC, GNR, GPR. Continue Zosyn Remains on TPN, reduce K+. Good urine output. Output per NG down. Continued tachycardia. Continue IVF and treat pain. Output significantly higher than input, weight down, ongoing tachycardia--> 1 L fluid bolus this a.m. and continue normal saline at 100 mL per hour. Anticipate ongoing need for fluids to match fluid losses. 1 unit PRBCs given 03/01. Total of 4 units transfused Ferrlecit dose given 02/25, plan to repeat dose 03/04. Discussed with nursing who provide supplemental history; mother updated. Prognosis guarded. 03/03/18 s/p ex lap 03/01 with placement of drains by Dr. Hills. Afebrile and WBC down. Wound cx growing GPC, GNR, GPR. Continue Zosyn and fluconazole Continue TPN, K+ improved. Good urine output. Output per NG and ostomy down since 03/01 ex lap. Continued tachycardia. Continue IVF and treat pain. ? whether anxious. Trial of Ativan Anticipate ongoing need for fluids to match fluid losses. 1 unit PRBCs given 03/01. Total of 4 units transfused Ferrlecit dose given 02/25, plan to repeat dose 03/04. Discussed with nursing who provide supplemental history; mother updated. Prognosis guarded. 03/04/18 s/p ex lap 03/01 with placement of drains by Dr. Hills. Fever and WBC up slightly. Wound cx growing e coli, sensitive to Zosyn. Fluconazole. Check CXR Continue TPN, K+ improved. Good urine output. Output per NG and ostomy down since 03/01 ex lap. Continued tachycardia. Hold LR as patient with trace edema. Start fentanyl patch for pain. He got 28 mg iv morphine yesterday. Starting fentanyl at 12mcg d /t possible interaction with Fluconazole. 1 unit PRBCs given 03/01. Total of 4 units transfused Ferrlicit dose given 02/25, plan to repeat dose 03/04. Discussed with nursing who provide supplemental history. Encourage activity. Prognosis guarded 03/05/18 s/p ex lap 03/01 with placement of drains by Dr. Hills. Wound VAC. Fever. WBC down slightly. Wound cx growing e coli, sensitive to Zosyn. Fluconazole. Check CXR. Continue TPN, decrease Mg. Good urine output. Output per NG up yesterday. Continued tachycardia. Holding LR as patient with trace edema. Appears more comfortable with fentanyl patch for pain. Platelets trending up. Check inflammatory markers. If continued fever, consider repeating CT Encourage activity. 03/06/18 Temp elevations to 100.5 - 101.7. Persistent tachycardia in 130s. BP 100's. WBC with gradual trend down to 17.9 - was 25.0 on 03/02. Platelets trending up to 971 (was 407 on 03/02). Electrolytes and renal status stable - on TPN. Will continue with Zosyn and Diflucan for antimicrobial coverage. Continue with wound vac and drains. CT scan of ab/pelvis to exclude occult abscess formation. Encourage continued activities. 03/07/18 WBC with gradual trend down to 14.3 - was 17.9 on yesterday. Platelets elevated at 961 (was 971 yesterday). Hemoglobin persistently low at 7.6; with continued tachycardia will give 1 unit of pRBC. Electrolytes and renal status stable - on TPN. Will continue with Zosyn for antimicrobial coverage; Dr Gomez added Vancomycin and increased Diflucan to 200mg daily. Continue with wound vac and drains. CT scan of ab/pelvis showed possible new abscess formation in the suprapubic region and omental area. Encourage continued activities. 03/08/18 WBC with increase back to 17.1. HGB increased to 8.2 post transfusion yesterday. Pharm recommended changing Zosyn to Meropenem - did agree. Continue vancomycin and Diflucan. Will continue with TPN for nutritional support - NS bolus of 500cc to help with tachycardia. Continue with pain control. 03/09/18 Temp elevations continue. WBC with decrease to 15.6, but increased bands noted. Renal status and electrolytes stable. Continues of Meropenem, vancomycin, and Diflucan for coverage. Dr Gomez plan repeating CT scan with contrast (though NG) tomorrow to check for bowel function and further abscesses. TPN for nutritional and volume support. Continue with MS for pain, add Aspercreme for muscle discomfort. 03/10/18 Temp elevations continue. WBC 16.4. Renal status and electrolytes stable. Little change in overall status. CT ab/pelvis shown abscess with drain in place, however abscess has increased in size. Sx working to have drains flushed. Continues on Meropenem, vancomycin, and Diflucan for coverage. TPN for nutritional and volume support. Will give 500cc NS bolus to help improve BP. 03/11/18 Temp elevations continue. WBC trended down to 14. Renal status and electrolytes stable. Little change in overall status. CT ab/pelvis shown abscess with drain in place, however abscess has increased in size. Sx working to have drains flushed. Continues on Meropenem, vancomycin, and Diflucan for coverage. TPN for nutritional and volume support. Repeat 500cc NS bolus today and add metoprolol for tachycardia as BP allows. Continue pain control. 03/12/18 Temp elevations continue. WBC trended down to 12.7. Renal status and electrolytes stable. Little change in overall status. CT ab/pelvis shown abscess with drain in place, however abscess has increased in size per CT 03/10/18. Sx working to have drains flushed. Continues on Meropenem, vancomycin, and Diflucan for coverage. TPN for nutritional and volume support. Added q12hr metoprolol in attempt to control heart rate, only marginally working and could be titrated if blood pressure allows. Continue pain control. 03/13/18 WBC with trend down, but still with tachycardia and intermittent temp elevations. Continues on Meropenem, vancomycin, and Diflucan for coverage. TPN for nutritional and volume support. Continue pain control. 03/14/18 WBC with elevation to 13.4. CT showing decrease size of abscess. Continues on Meropenem, vancomycin, and Diflucan for coverage. TPN for nutritional and volume support. Electrolytes and renal status stable. Continue pain control. Continue activities as able. 03/15/18 WBC with stable at 13.7. Platelets with decrease to 594. Less temp elevations seen. Continues on Meropenem, vancomycin, and Diflucan for coverage. TPN for nutritional and volume support. Electrolytes and renal status stable. Dr Gomez trying NG clamping and clear liquids. Continue pain control. Continue activities as able. 03/16/18 WBC with decrease to 11.7. Platelets with decrease to 546. Less temp elevations seen. Continues on Meropenem, vancomycin, and Diflucan for coverage. TPN for nutritional and volume support. Electrolytes and renal status stable. NG removed; clear liquids.
[2018-03-16] MEDS ORDERED: FALL RISK - PHARMACY CONSULT MC ONE (23:02)
[2018-03-17] MEDS: MORPHINE SULFATE 4mg INJECTION IVP PRN (00:49)
[2018-03-17] MEDS: SALINE FLUSH 10ml SYRINGE IVF PRN ×3 (00:50→21:34)
[2018-03-17] MEDS ORDERED: ALTEPLASE (Cathflo*) 2mg INJECTION IV ONE (01:16)
[2018-03-17] MEDS: MEROPENEM 1 GM in NS 100 ML IV SCH (04:18)
[2018-03-17] MEDS: MULTI-VIT INFUSION 10 ML, MULTI-TRACE ELEMENTS 1 ML in TPN - STANDARD FORMULA 2,000 ML IV SCH ×2 (05:02→22:01)
--- NOTE | 2018-03-17 08:36 | Pharmacy Consult-TPN/PPN ---
Pharmacy Consult-TPN/PPN - Laboratory Information Chemistry Turbidity < 20 (0-20) 03/17/18 05:11 Sodium 139 MEQ/L (136-146) 03/17/18 05:11 Potassium 4.3 MEQ/L (3.6-5) 03/17/18 05:11 Chloride 105 MEQ/L (98-107) 03/17/18 05:11 Carbon Dioxide 26 MEQ/L (22-30) 03/17/18 05:11 Anion Gap 8 meq/L (5-15) 03/17/18 05:11 BUN 13.0 MG/DL (9-20) 03/17/18 05:11 Creatinine 0.4 mg/dL (0.8-1.5) L 03/17/18 05:11 GFR Calculation 253 03/17/18 05:11 BUN/Creatinine Ratio 33 RATIO (6-26) H 03/17/18 05:11 Glucose 98 MG/DL (75-110) 03/17/18 05:11 Glucometer 149 mg/dL (65-110) 03/17/18 06:04 Calculated Osmolality 268 MOSM/KG (261-280) 03/17/18 05:11 Calcium 8.0 MG/DL (8.4-10.2) L 03/17/18 05:11 Ionized Calcium [place] 1.11 MMOL/L (1.12-1.32) L 02/25/18 04:20 Phosphorus 5.2 MG/DL (2.5-4.5) H 03/17/18 05:11 Magnesium 2.2 MG/DL (1.6-2.3) 03/14/18 04:00 Iron 11 ug/dL (49-181) L 02/20/18 20:07 TIBC 342 ug/dL (261-497) 02/20/18 20:07 % Saturation 3 % (13-59) L 02/20/18 20:07 Ferritin 2.44 ng/mL (17-464) L 02/20/18 20:07 Total Bilirubin 0.50 MG/DL (0.20-1.30) 03/14/18 04:00 Icterus Index < 2 (0-7) 03/17/18 05:11 AST 53 U/L (17-59) 03/14/18 04:00 ALT 51 U/L (1-50) H 03/14/18 04:00 Alkaline Phosphatase 198 U/L (38-126) H 03/14/18 04:00 C-Reactive Protein 181.6 mg/L (0-9) H 03/14/18 04:00 Total Protein 5.8 g/dL (6.3-8.2) L 03/14/18 04:00 Albumin 2.6 g/dL (3.5-5.0) L 03/14/18 04:00 Globulin 3.2 G/DL (2.4-3.6) 03/14/18 04:00 Albumin/Globulin Ratio 0.8 RATIO (1.1-2.2) L 03/14/18 04:00 Lipase 21 U/L (23-300) L 02/20/18 15:25 Plasma Lactate 1.3 MMOL/L (0.6-2.2) 02/24/18 04:13 Vitamin B12 367 pg/mL (239-931) 02/20/18 20:07 Procalcitonin < 0.05 NG/ML 02/21/18 04:11 Specimen Hemolysis < 15 (0-25) 03/17/18 05:11 - Consult Information TPN Consult: Day 15 Will continue the TPN as currently ordered. The phosphorous was still elevated but the patient was not actually on a phosphate free bag unitil this morning @ 0515. I will order a phosphorous level for 03/18 0400 to verify the phosphorous level is going down. Thanks, Gonzales Russell, Pharmacist.
[2018-03-17] MEDS: PANTOPRAZOLE 40 MG INJECTION IVP SCH (08:46)
[2018-03-17] MEDS: ENOXAPARIN 40 MG/0.4 ML INJECTION SQ SCH (08:46)
[2018-03-17] MEDS: METOPROLOL 5mg/5ml INJECTION IVP SCH ×2 (08:46→21:29)
--- NOTE | 2018-03-17 08:55 | Infectious Disease Consult ---
Infectious Disease Consult Date of Consultation: 03/17/18 Requesting Physician: Nuno Gomez Reason for Consultation: antibiotic recs History of Present Illness: Mr. Albright is a 32 y/o autistic man who was admitted here on February 20 with abdominal pain and nausea. According to records he has a history of toxic megacolon. He also had both urinary and fecal incontinence on admission. His CT scan obtained on admission showed severe fecal impaction with a large amount of stool within the rectum and left colon, stool-filled rectosigmoid colon displaces the bladder anteriorly and to the right, moderate gas and stool within the transverse and right colon. He had leukocytosis and lactic acidosis on admission. He was started on IV fluids and Zosyn. He underwent a Gastrografin enema. On February 23 he was noted to be tachycardic with oliguria, less responsive pale and clammy. KUB showed free air. He was taken emergently to the operating room for exploratory laparotomy, transverse colectomy, left hemicolectomy, creation of end colostomy and Hutchinson's pouch. His abdomen was noted to be grossly contaminated with stool. The splenic flexure was frankly necrotic. He did not have any surgical cultures obtained. He did have blood cultures drawn on February 20 and also February 23 which were negative. Diflucan was added. On February 28 he was noted to have vomiting. He had a repeat CT scan which showed an abscess posterior to the left upper quadrant drain above the spleen which was thought to be difficult to drain percutaneously. He was taken back to the operating room on March 01 and underwent exploratory laparotomy drainage of multiple intra-abdominal abscesses fecal disimpaction and intraoperative flexible proctoscopy. Intraoperative culture was obtained which had moderate gram-positive cocci few gram-negative rods rare gram-positive rods on the stain. This grew heavy growth of Escherichia coli which was resistant only to ampicillin, heavy growth of an anaerobic gram-negative bhanu and anaerobic gram- positive cocci. He has had quite a bit of fever, but this seems to be improving. He has also had leukocytosis and thrombocytosis. The Zosyn was changed to Merrem on 03/08 per Pharmacy recommendation per records. Vancomycin was added on 03/07/18. His most recent CT was done on March 14 and this showed decreasing size of the multifocal left abdominal abscesses. I've been asked to help with antibiotics. Medications Home Medications Medication Instructions Recorded Confirmed Type No known Home medications [No home 02/20/18 02/20/18 History meds] Allergies Allergy/AdvReac Type Severity Reaction Status Date / Time No Known Allergies Allergy Verified 02/20/18 14:54 [facility] Patient Stated Medical History Cerebrovascular Accident No Paralysis No Seizures No Syncope No Angina No Cardiac Arrhythmia No Congestive Heart Failure No Coronary Artery Disease No Heart Murmur No Hypertension No Hypotension No Myocardial Infarction No Rheumatic Fever No Valvular Heart Disease No Other Cardiology No Asthma No Bronchitis No Chronic Obstructive Pulmonary No Disease (COPD) Pneumonia No Pulmonary Edema No Pulmonary Embolism No Sleep Apnea No Tuberculosis No Other Respiratory No Diabetes Mellitus Type 1 No Diabetes Mellitus Type 2 No Other GI Yes: Perforated bowel Hx Renal Disease No Other Musculoskeletal Yes: Autism Anesthesia Reactions No Blood Transfusions No Chemotherapy No Malignant Hyperthermia No Other No Depression No Other Behavioral Health Yes: AUTISM Now No Medical History Updates: Autism. Dental problems Surgical History: Left great toe partial nale plate removal 2011. Dental surgery Family History Updates: Parents are healthy. Paternal grandfather of pancreatic cancer. A few people on maternal side also had cancer. - Social History Smoking status: Never smoker second hand exposure: No Substance use type: does not use Alcohol intake frequency: does not drink Does patient use chewing tobacco?: No Current residence: Apartment/Private Home Review of Systems ROS unobtainable: other (difficult to obtain due to his autism, he currently denies pain) Exam Vital Signs: Temperature 99 F 03/17/18 08:00 Pulse Rate 133 H 03/17/18 08:00 Respiratory Rate 20 03/17/18 08:00 Blood Pressure 127/72 03/17/18 08:00 Pulse Oximetry 98 03/17/18 07:00 Height/Weight/BMI: Height 1.75 m Weight 63.4 kg Body Mass Index 22.5 - Constitutional Present: no acute distress, well nourished, well developed, thin - Routine HEENT Exam Head: Present: normocephalic, atraumatic Eye: Present: EOMI, PERRL ENT: Present: mucous membranes moist Comments: NGT in place, no thrush - Routine Neck Exam Present: supple - Routine Respiratory Exam Present: CTA bilaterally - Routine Cardiovascular Exam Present: tachycardia - Routine Abdominal Exam Present: soft, ostomy Comments: He didn't really want me to look at his abdomen, so I didn't palpate it. He has a midline wound VAC in place, 3 drains on L side with cloudy, purulent fluid , 2 [place] drains on R side with serous drainage. Decreased bowel sounds. - Routine Extremities Exam Absent: cyanosis, clubbing, edema, joint swelling - Routine Skin Exam Absent: rash Comments: PICC site ok - Routine Neurological Exam Present: alert, CN II-XII intact. Absent: motor deficit says yes and no to questions only for me - Routine Psychiatric Exam Present: normal affect Results - Labs CBC & Chem 7: 03/17/18 05:11 03/17/18 05:11 Microbiology Results: Microbiology 03/01/18 18:56 Abdomen, Left Upper Gram Stain - Final 03/01/18 18:56 Abdomen, Left Upper Surgical Culture - Final Escherichia coli Anaerobic Gram-Negative Bhanu Anaerobic Gram-Positive Cocci 02/23/18 20:15 Peripheral/Iv Start Gram Stain - Final Not performed 02/23/18 20:15 Peripheral/Iv Start Blood Culture - Final No Growth After 5 Days 02/23/18 20:05 Peripheral/Iv Start Gram Stain - Final Not performed 02/23/18 20:05 Peripheral/Iv Start Blood Culture - Final No Growth After 5 Days 02/20/18 20:07 Peripheral/Iv Start Blood Culture - Final No Growth After 5 Days Impression: Sepsis, secondary to GI source Fever, leukocytosis, improving Sinus tachycardia Perforation of splenic flexure due to ischemia, s/p near total colectomy with ostomy placement 02/23/18, fecal peritonitis noted S/p operative drainage of intra-abdominal abscesses and fecal disimpaction , cultures with E. coli, anaerobic GNR, anaerobic GPC. Severe iron deficiency anemia autism H/o toxic megacolon Recommendation: His fever, leukocytosis, and thrombocytosis are improving. Would recommend narrowing his antibiotics from meropenem to Zosyn. I would continue with fluconazole as well. He will need at least 2 weeks of antibiotics, but he might require more. I would recommend repeat CT in a couple weeks to make sure the abscesses are resolved before stopping antibiotics. I will be out on vacation next week. Dr. Steven will be available by phone.
[2018-03-17] MEDS: ALBUTEROL/IPRATROPIUM 2.5mg-0.5mg/3ml NEB IPPB SCH ×3 (09:00→18:56)
--- NOTE | 2018-03-17 11:04 | Progress Note ---
DATE 03/17/2018 FINDINGS Cosmo was more verbal this morning. He does appear improved. He stated that he was hungry and thirsty this morning. OBJECTIVE VITALS: The patient did have a temperature last night of 100.7. Otherwise has been for the most part afebrile over the last 48 hours. CHEST: Clear to auscultation bilaterally. HEART: Regular rate and rhythm. Normal S1, S2, without gallops, murmurs or clicks. ABDOMEN: Soft. Minimal incisional tenderness. There is some air and a minimal amount of stool within his ostomy appliance. LABORATORY/RADIOGRAPHIC EVALUATION Patient's white count is on a downward trend at 10,000 today. No significant left shift. BMP obtained and found to be stable. ASSESSMENT 32-year-old gentleman with a history for ruptured colon, fecal peritonitis, status post exploratory laparotomy with colonic resection and creation of end colostomy and Mendoza's pouch, status post repeat exploratory laparotomy with drainage of multiple intraabdominal abscesses. Patient with the misfortune of developing additional intraabdominal abscesses which are improving with antibiotic therapy and current intraperitoneal drains. PLAN Continue with current care. Will have Infectious Disease see the patient for additional antibiotic recommendations. Will advance diet to regular. Will otherwise continue with current care. I am pleased with patient's progress at this time. Will likely repeat CT scan next week in followup. SYLVAIN
[2018-03-17] MEDS: PIPERACILLIN/TAZOBACTAM 3.375 GM in D5W 100 ML IV SCH ×2 (12:31→18:02)
[2018-03-17] MEDS: NS FLUSH BAG 500ml IV PRN (12:31)
[2018-03-17] MEDS: ONDANSETRON 4 MG/2 ML INJECTION IVP PRN (15:08)
[2018-03-17] MEDS: FAT EMULSION 20% 250 ML IV SCH (15:37)
[2018-03-17] MEDS: FLUCONAZOLE PB 200 MG/100 ML BAG IV SCH (16:50)
--- NOTE | 2018-03-17 17:57 | Progress Note ---
- Date 03/17/18 Subjective: F/U: Toxic Megacolon, Perforation of splenic flexure, Multiple areas of intraabdominal abscess formation Resting in bed listening to music. Awake and alert, but limited verbal interaction. Oral intake little today-did have episode on nausea with emesis. Passing mucoid stool from ostomy. Walked in halls with nursing help. Objective Vital signs: Temperature 98.2 F 03/17/18 15:00 Pulse Rate 142 H 03/17/18 15:46 Respiratory Rate 39 H 03/17/18 15:15 Blood Pressure 124/72 03/17/18 15:00 Pulse Oximetry 100 03/17/18 15:15 Rhythm: Sinus Tachycardia Height/Weight/BMI: Height 1.75 m Weight 63.4 kg Body Mass Index 22.5 - Constitutional Present: well developed, thin. Absent: combative, agitated - Routine HEENT Exam Head: Present: normocephalic, atraumatic Eye: Present: EOMI, PERRL ENT: Present: mucous membranes moist - Routine Respiratory Exam Present: decreased breath sounds. Absent: respiratory distress - Routine Cardiovascular Exam Present: tachycardia (regular) - Routine Abdominal Exam Present: soft, tenderness (mild/diffuse), non distended. Absent: normoactive bowel sounds (Decreased) - Routine Extremities Exam Present: edema (Trace), pulses intact. Absent: cyanosis, clubbing - Routine Skin Exam Present: warm. Absent: dry (Moist) - Routine Neurological Exam Present: alert, vision grossly intact, hearing grossly intact - Routine Psychiatric Exam Present: normal affect, cooperative Results - Labs CBC & Chem 7: 03/17/18 05:11 03/17/18 05:11 Microbiology Results: Microbiology 03/01/18 18:56 Abdomen, Left Upper Gram Stain - Final 03/01/18 18:56 Abdomen, Left Upper Surgical Culture - Final Escherichia coli Anaerobic Gram-Negative Bhanu Anaerobic Gram-Positive Cocci 02/23/18 20:15 Peripheral/Iv Start Gram Stain - Final Not performed 02/23/18 20:15 Peripheral/Iv Start Blood Culture - Final No Growth After 5 Days 02/23/18 20:05 Peripheral/Iv Start Gram Stain - Final Not performed 02/23/18 20:05 Peripheral/Iv Start Blood Culture - Final No Growth After 5 Days 02/20/18 20:07 Peripheral/Iv Start Blood Culture - Final No Growth After 5 Days Assessment and Plan (1) Megacolon Problem details: Toxic megacolon Current visit: Yes Status: Acute (2) Perforation of colon Problem details: Perforation of the splenic flexure due to ischemic changes Current visit: Yes Status: Acute Assessment and Plan: Assessment 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 Platelets with decrease to 529. Less temp elevations seen. Evaluated by Dr Ac today - vancomycin stopped and changed meropenem to Zosyn and continued Diflucan. TPN for nutritional and volume support. Electrolytes and renal status stable. Advanced to regular diet but oral drive low. HGB variable, but trend down. Will give 1 unit pRBC due to continued tachycardia in post op patent. Continue pain control. Continue activities as able - walking in halls with nursing help. Repeat CMP, Mg, and Phos tomorrow due to TPN. Will repeat CBC due to leukocytosis/thrombocytosis. Discussed case with CCU nursing. DVT Prophylaxis: SCD's, Lovenox Resuscitation Status: Full Code - Time spent with patient Time with patient PN: 15 minutes - Physician Narrative Physician: Daniel Stevens MD Narrative: Date: 03/17/18 Time: 1754 Hospital Course Summary Disclaimer: The visit summary below is not to be considered part of the above Progress Note. Hospital Course: 02/20/18 Admit, CCU. Bowel rest - NPO. Cont IVF - 1/2 NS with Na of 144. Consult Dr. Gomez for mgt. Sx management with Protonix, morphine, Zofran. Cont IVF for tachycardia; sepsis. Repeat lactate. Cont Zosyn for bowel coverage. Follow BC results. Iron w/u in progress. Type & screen ordered. D/W with Dr. Stevens and RN. 02/22/18 Gastrografin enema 02/21 with copious stool resulting. However, still with stool in rectal vault. Deferring further management to surgery team, await recs. Cont Zosyn given bandemia, tachycardia and concern for toxic megacolon. 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 Clinically deteriorating. Going for surgery for perforation/free air. Near total colectomy performed. Became hypotensive, tachycardic with rates into 180s. Aggressively fluid resuscitated. 02/24/18 UOP, tachycardia improved. Cont abx. Initiate TPN. Monitoring for return of bowel fxn. 02/25/18 Given Kphos Transfused another 1U PRBCs. Stopped LR. Surgery to trial clamping NGT. Intermittently febrile- rectal Tylenol. 02/26/18 Did have fever overnight. Has tolerated NGT clamping. No O2 requirements. No N/V /CP. Hasn't been able to perform IS very well. 02/27/18 Remains on TPN, tolerating limited oral liquids earlier today however resultant emesis has required resumption of NG suction. Good output per ostomy; 2400 mL output reported during prior 24-hour period. Hemoglobin drifting down, ongoing hypokalemia-post being reassessed this afternoon. Potassium increased and TPN but may require supplemental boluses due to potassium lost in stool and emesis. Persistent tachycardia-may require additional blood transfusion. Remains on Zosyn for peritonitis; chest x-ray with pleural effusion but no evidence of pneumonia. May require repeat CT abdomen/pelvis to exclude intra-abdominal abscess. 02/28/18 Remains on TPN, electrolytes stable. Good urine output per ostomy but continues to have high volume output per NG. Output significantly higher than input, weight down, ongoing tachycardia--> 1 L fluid bolus tonight. Anticipate ongoing need for fluids to match fluid losses. CT abdomen/pelvis discussed with radiology this evening and subsequently with Dr. Hills; will review further with radiology tomorrow to determine if drainage can be performed of the subphrenic abscess percutaneously or if surgical drainage/washout will be needed due to presence of multiple smaller fluid collections suggestive of early abscesses. Dr. Hills notified patient 's parents of findings. Hemoglobin continues to drift down very slowly, may be slightly hemoconcentrated at present. Type and screen in a.m. Anticipating transfusion in the next 1-2 days. 03/01/18 OP Day - Exploratory laparotomy, drainage of multiple intraabdominal abscesses, fecal disimpaction, intraoperative flexible proctoscopy. Subdiaphragmatic abscess and left upper quadrant-discussed with radiology and message subsequently relayed to Dr. Hills regarding potential risk of percutaneous drainage. Patient tenably scheduled to return to the operating room later today. Several very small extensive gas in the pelvis without clear room enhancement to suggest abscess, may simply be postoperative change. Remains on TPN, electrolytes stable. Good urine output per ostomy but continues to have high volume output per NG. Output significantly higher than input, weight down, ongoing tachycardia--> 1 L fluid bolus this a.m. and continue normal saline at 100 mL per hour. 2 units PRBCs matched preoperatively; one being given prior to surgery for hemoglobin 7.4. 03/02/18 s/p ex lap with placement of drains by Dr. Hills. Febrile before surgery. WBC up post-op. Wound cx growing GPC, GNR, GPR. Continue Zosyn Remains on TPN, reduce K+. Good urine output. Output per NG down. Continued tachycardia. Continue IVF and treat pain. Output significantly higher than input, weight down, ongoing tachycardia--> 1 L fluid bolus this a.m. and continue normal saline at 100 mL per hour. Anticipate ongoing need for fluids to match fluid losses. 1 unit PRBCs given 03/01. Total of 4 units transfused Ferrlecit dose given 02/25, plan to repeat dose 03/04. Discussed with nursing who provide supplemental history; mother updated. Prognosis guarded. 03/03/18 s/p ex lap 03/01 with placement of drains by Dr. Hills. Afebrile and WBC down. Wound cx growing GPC, GNR, GPR. Continue Zosyn and fluconazole Continue TPN, K+ improved. Good urine output. Output per NG and ostomy down since 03/01 ex lap. Continued tachycardia. Continue IVF and treat pain. ? whether anxious. Trial of Ativan Anticipate ongoing need for fluids to match fluid losses. 1 unit PRBCs given 03/01. Total of 4 units transfused Ferrlecit dose given 02/25, plan to repeat dose 03/04. Discussed with nursing who provide supplemental history; mother updated. Prognosis guarded. 03/04/18 s/p ex lap 03/01 with placement of drains by Dr. Hills. Fever and WBC up slightly. Wound cx growing e coli, sensitive to Zosyn. Fluconazole. Check CXR Continue TPN, K+ improved. Good urine output. Output per NG and ostomy down since 03/01 ex lap. Continued tachycardia. Hold LR as patient with trace edema. Start fentanyl patch for pain. He got 28 mg iv morphine yesterday. Starting fentanyl at 12mcg d /t possible interaction with Fluconazole. 1 unit PRBCs given 03/01. Total of 4 units transfused Ferrlicit dose given 02/25, plan to repeat dose 03/04. Discussed with nursing who provide supplemental history. Encourage activity. Prognosis guarded 03/05/18 s/p ex lap 03/01 with placement of drains by Dr. Hills. Wound VAC. Fever. WBC down slightly. Wound cx growing e coli, sensitive to Zosyn. Fluconazole. Check CXR. Continue TPN, decrease Mg. Good urine output. Output per NG up yesterday. Continued tachycardia. Holding LR as patient with trace edema. Appears more comfortable with fentanyl patch for pain. Platelets trending up. Check inflammatory markers. If continued fever, consider repeating CT Encourage activity. 03/06/18 Temp elevations to 100.5 - 101.7. Persistent tachycardia in 130s. BP 100's. WBC with gradual trend down to 17.9 - was 25.0 on 03/02. Platelets trending up to 971 (was 407 on 03/02). Electrolytes and renal status stable - on TPN. Will continue with Zosyn and Diflucan for antimicrobial coverage. Continue with wound vac and drains. CT scan of ab/pelvis to exclude occult abscess formation. Encourage continued activities. 03/07/18 WBC with gradual trend down to 14.3 - was 17.9 on yesterday. Platelets elevated at 961 (was 971 yesterday). Hemoglobin persistently low at 7.6; with continued tachycardia will give 1 unit of pRBC. Electrolytes and renal status stable - on TPN. Will continue with Zosyn for antimicrobial coverage; Dr Gomez added Vancomycin and increased Diflucan to 200mg daily. Continue with wound vac and drains. CT scan of ab/pelvis showed possible new abscess formation in the suprapubic region and omental area. Encourage continued activities. 03/08/18 WBC with increase back to 17.1. HGB increased to 8.2 post transfusion yesterday. Pharm recommended changing Zosyn to Meropenem - did agree. Continue vancomycin and Diflucan. Will continue with TPN for nutritional support - NS bolus of 500cc to help with tachycardia. Continue with pain control. 03/09/18 Temp elevations continue. WBC with decrease to 15.6, but increased bands noted. Renal status and electrolytes stable. Continues of Meropenem, vancomycin, and Diflucan for coverage. Dr Gomez plan repeating CT scan with contrast (though NG) tomorrow to check for bowel function and further abscesses. TPN for nutritional and volume support. Continue with MS for pain, add Aspercreme for muscle discomfort. 03/10/18 Temp elevations continue. WBC 16.4. Renal status and electrolytes stable. Little change in overall status. CT ab/pelvis shown abscess with drain in place, however abscess has increased in size. Sx working to have drains flushed. Continues on Meropenem, vancomycin, and Diflucan for coverage. TPN for nutritional and volume support. Will give 500cc NS bolus to help improve BP. 03/11/18 Temp elevations continue. WBC trended down to 14. Renal status and electrolytes stable. Little change in overall status. CT ab/pelvis shown abscess with drain in place, however abscess has increased in size. Sx working to have drains flushed. Continues on Meropenem, vancomycin, and Diflucan for coverage. TPN for nutritional and volume support. Repeat 500cc NS bolus today and add metoprolol for tachycardia as BP allows. Continue pain control. 03/12/18 Temp elevations continue. WBC trended down to 12.7. Renal status and electrolytes stable. Little change in overall status. CT ab/pelvis shown abscess with drain in place, however abscess has increased in size per CT 03/10/18. Sx working to have drains flushed. Continues on Meropenem, vancomycin, and Diflucan for coverage. TPN for nutritional and volume support. Added q12hr metoprolol in attempt to control heart rate, only marginally working and could be titrated if blood pressure allows. Continue pain control. 03/13/18 WBC with trend down, but still with tachycardia and intermittent temp elevations. Continues on Meropenem, vancomycin, and Diflucan for coverage. TPN for nutritional and volume support. Continue pain control. 03/14/18 WBC with elevation to 13.4. CT showing decrease size of abscess. Continues on Meropenem, vancomycin, and Diflucan for coverage. TPN for nutritional and volume support. Electrolytes and renal status stable. Continue pain control. Continue activities as able. 03/15/18 WBC with stable at 13.7. Platelets with decrease to 594. Less temp elevations seen. Continues on Meropenem, vancomycin, and Diflucan for coverage. TPN for nutritional and volume support. Electrolytes and renal status stable. Dr Gomez trying NG clamping and clear liquids. Continue pain control. Continue activities as able. 03/16/18 WBC with decrease to 11.7. Platelets with decrease to 546. Less temp elevations seen. Continues on Meropenem, vancomycin, and Diflucan for coverage. TPN for nutritional and volume support. Electrolytes and renal status stable. NG removed; clear liquids. 03/17/18 WBC with decrease to 10.1. Platelets with decrease to 529. Less temp elevations seen. Evaluated by Dr Ac today - vancomycin stopped and changed meropenem to Zosyn and continued Diflucan. TPN for nutritional and volume support. Electrolytes and renal status stable. Advanced to regular diet but oral drive low. HGB variable, but trend down. Will give 1 unit pRBC due to continued tachycardia in post op patent. Continue pain control. Continue activities as able - walking in halls with nursing help.
[2018-03-17] MEDS: KETOROLAC 30 MG/ML INJECTION IVP PRN (21:34)
[2018-03-18] MEDS: PIPERACILLIN/TAZOBACTAM 3.375 GM in D5W 100 ML IV SCH ×5 (00:03→23:53)
[2018-03-18] MEDS: MULTI-VIT INFUSION 10 ML, MULTI-TRACE ELEMENTS 1 ML in TPN - STANDARD FORMULA 2,000 ML IV SCH ×2 (01:22→21:14)
[2018-03-18] MEDS: PANTOPRAZOLE 40 MG INJECTION IVP SCH (08:37)
[2018-03-18] MEDS: METOPROLOL 5mg/5ml INJECTION IVP SCH ×2 (08:37→21:16)
[2018-03-18] MEDS: ENOXAPARIN 40 MG/0.4 ML INJECTION SQ SCH (08:37)
[2018-03-18] MEDS: ALBUTEROL/IPRATROPIUM 2.5mg-0.5mg/3ml NEB IPPB SCH ×2 (09:39→21:26)
--- NOTE | 2018-03-18 11:37 | Progress Note ---
- Date 03/18/18 Subjective: The patient was seen this morning in his room. He is awake and appears in no distress. He states yes to feeling good. He denies pain anywhere. He specifically denies abdominal pain. He states he is thirsty and drank some lemon [place] soda without difficulty. He then stated he wanted some more. He denies feeling short of breath. Per his nurse, he had some emesis last night of about 50 ML's. This morning, he ate half a cup of oatmeal with milk and has drank a small can of lemon [place] pop without difficulties. He has been up walking without difficulties per his nurse. He is having good output of gas and stool from his ostomy. Nursing staff is continuing to irrigate his drains. No family is currently present Objective Vital signs: Temperature 98.1 F 03/18/18 04:00 Pulse Rate 127 H 03/18/18 06:30 Respiratory Rate 14 03/18/18 09:39 Blood Pressure 102/59 03/18/18 06:00 Pulse Oximetry 96 03/18/18 06:30 Rhythm: Sinus Tachycardia Height/Weight/BMI: Height 1.75 m Weight 62.5 kg Body Mass Index 22.5 Comments: No fever since the evening of 03/16/2017. Heart rate has ranged from 114-140. Heart rate currently 124. Blood pressure 114/64. O2 sat 96% on room air. Urine output yesterday 2938 ML's 450 ML's out from his drain yesterday GEN-alert, no acute distress, affect is pleasant, he does have autism HEENT-oropharynx is moist NECK-supple CV-tachycardic rate with irregular rhythm CHEST-clear to auscultation anteriorly ABD-soft, moderate distention, positive bowel sounds. Ostomy bag is half full of liquid stool and half full of air. Abdomen is mildly tender. He does have several drains in place -Mcdermott in place with good urine output. Urine color is normal EXT-no edema, SCDs are on NEURO-no focal deficits, the patient is autistic SKIN-warm and dry Results - Labs CBC & Chem 7: 03/18/18 04:01 03/18/18 04:01 Labs: Phosphorus is 5.3, magnesium 2.4, alkaline phosphatase is 181, MALT is 53 Microbiology Results: Microbiology 03/01/18 18:56 Abdomen, Left Upper Gram Stain - Final 03/01/18 18:56 Abdomen, Left Upper Surgical Culture - Final Escherichia coli Anaerobic Gram-Negative Bhanu Anaerobic Gram-Positive Cocci 02/23/18 20:15 Peripheral/Iv Start Gram Stain - Final Not performed 02/23/18 20:15 Peripheral/Iv Start Blood Culture - Final No Growth After 5 Days 02/23/18 20:05 Peripheral/Iv Start Gram Stain - Final Not performed 02/23/18 20:05 Peripheral/Iv Start Blood Culture - Final No Growth After 5 Days 02/20/18 20:07 Peripheral/Iv Start Blood Culture - Final No Growth After 5 Days Assessment and Plan (1) Megacolon Problem details: Toxic megacolon Current visit: Yes Status: Acute (2) Perforation of colon Problem details: Perforation of the splenic flexure due to ischemic changes Current visit: Yes Status: Acute Assessment and Plan: Assessment 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 He has had a total of 6 units of blood, he received his last unit 03/17/2018 Autism Dental problems Hypophosphatemia-resolved Hyperphosphatemia-on TPN Hypermagnesemia-on TPN Hypokalemia (Not POA) -resolved XIOMARA-resolved LLL atelectasis Acute kidney injury with oliguria-postop -resolved Hyperkalemia (Not POA) -resolved Thrombocytosis (Not POA) Mild elevation of INR of 1.56 on 03/14/2018 Plan White blood cell count today is up mildly to 12.1. Bands are up to 7 from one yesterday. He has been afebrile over 24 hours. Hemoglobin improved to 9.5 up from 7.1 yesterday. He received 1 unit of blood yesterday. He does have mildly elevated phosphorus and magnesium. Discussed with pharmacy. The rate of his TPN will be decreased. Will recheck phosphorus and magnesium tomorrow. Repeat INR tomorrow. Repeat CBC and renal panel tomorrow. Advance diet as tolerated. Will try oral supplements. Continue ambulation with assist. The patient continues to have persistent tachycardia this hospital course, but rate is slowly improving. No real change with transfusion of 1 unit of blood. Recheck C-reactive protein tomorrow Discussed case with CCU nursing. We'll check a vitamin B-12 tomorrow regarding borderline low B-12 level Greater than 40 minutes of critical care time spent seeing and evaluating the patient in determining care plan. DVT Prophylaxis: SCD's, Lovenox GI Prophylaxis: Protonix Resuscitation Status: Full Code - Physician Narrative Narrative: Date: 03/18/18 Time: 112 Hospital Course Summary Disclaimer: The visit summary below is not to be considered part of the above Progress Note. Hospital Course: 02/20/18 Admit, CCU. Bowel rest - NPO. Cont IVF - 1/2 NS with Na of 144. Consult Dr. Gomez for mgt. Sx management with Protonix, morphine, Zofran. Cont IVF for tachycardia; sepsis. Repeat lactate. Cont Zosyn for bowel coverage. Follow BC results. Iron w/u in progress. Type & screen ordered. D/W with Dr. Stevens and RN. 02/22/18 Gastrografin enema 02/21 with copious stool resulting. However, still with stool in rectal vault. Deferring further management to surgery team, await recs. Cont Zosyn given bandemia, tachycardia and concern for toxic megacolon. 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 Clinically deteriorating. Going for surgery for perforation/free air. Near total colectomy performed. Became hypotensive, tachycardic with rates into 180s. Aggressively fluid resuscitated. 02/24/18 UOP, tachycardia improved. Cont abx. Initiate TPN. Monitoring for return of bowel fxn. 02/25/18 Given Kphos Transfused another 1U PRBCs. Stopped LR. Surgery to trial clamping NGT. Intermittently febrile- rectal Tylenol. 02/26/18 Did have fever overnight. Has tolerated NGT clamping. No O2 requirements. No N/V /CP. Hasn't been able to perform IS very well. 02/27/18 Remains on TPN, tolerating limited oral liquids earlier today however resultant emesis has required resumption of NG suction. Good output per ostomy; 2400 mL output reported during prior 24-hour period. Hemoglobin drifting down, ongoing hypokalemia-post being reassessed this afternoon. Potassium increased and TPN but may require supplemental boluses due to potassium lost in stool and emesis. Persistent tachycardia-may require additional blood transfusion. Remains on Zosyn for peritonitis; chest x-ray with pleural effusion but no evidence of pneumonia. May require repeat CT abdomen/pelvis to exclude intra-abdominal abscess. 02/28/18 Remains on TPN, electrolytes stable. Good urine output per ostomy but continues to have high volume output per NG. Output significantly higher than input, weight down, ongoing tachycardia--> 1 L fluid bolus tonight. Anticipate ongoing need for fluids to match fluid losses. CT abdomen/pelvis discussed with radiology this evening and subsequently with Dr. Hills; will review further with radiology tomorrow to determine if drainage can be performed of the subphrenic abscess percutaneously or if surgical drainage/washout will be needed due to presence of multiple smaller fluid collections suggestive of early abscesses. Dr. Hills notified patient 's parents of findings. Hemoglobin continues to drift down very slowly, may be slightly hemoconcentrated at present. Type and screen in a.m. Anticipating transfusion in the next 1-2 days. 03/01/18 OP Day - Exploratory laparotomy, drainage of multiple intraabdominal abscesses, fecal disimpaction, intraoperative flexible proctoscopy. Subdiaphragmatic abscess and left upper quadrant-discussed with radiology and message subsequently relayed to Dr. Hills regarding potential risk of percutaneous drainage. Patient tenably scheduled to return to the operating room later today. Several very small extensive gas in the pelvis without clear room enhancement to suggest abscess, may simply be postoperative change. Remains on TPN, electrolytes stable. Good urine output per ostomy but continues to have high volume output per NG. Output significantly higher than input, weight down, ongoing tachycardia--> 1 L fluid bolus this a.m. and continue normal saline at 100 mL per hour. 2 units PRBCs matched preoperatively; one being given prior to surgery for hemoglobin 7.4. 03/02/18 s/p ex lap with placement of drains by Dr. Hills. Febrile before surgery. WBC up post-op. Wound cx growing GPC, GNR, GPR. Continue Zosyn Remains on TPN, reduce K+. Good urine output. Output per NG down. Continued tachycardia. Continue IVF and treat pain. Output significantly higher than input, weight down, ongoing tachycardia--> 1 L fluid bolus this a.m. and continue normal saline at 100 mL per hour. Anticipate ongoing need for fluids to match fluid losses. 1 unit PRBCs given 03/01. Total of 4 units transfused Ferrlecit dose given 02/25, plan to repeat dose 03/04. Discussed with nursing who provide supplemental history; mother updated. Prognosis guarded. 03/03/18 s/p ex lap 03/01 with placement of drains by Dr. Hills. Afebrile and WBC down. Wound cx growing GPC, GNR, GPR. Continue Zosyn and fluconazole Continue TPN, K+ improved. Good urine output. Output per NG and ostomy down since 03/01 ex lap. Continued tachycardia. Continue IVF and treat pain. ? whether anxious. Trial of Ativan Anticipate ongoing need for fluids to match fluid losses. 1 unit PRBCs given 03/01. Total of 4 units transfused Ferrlecit dose given 02/25, plan to repeat dose 03/04. Discussed with nursing who provide supplemental history; mother updated. Prognosis guarded. 03/04/18 s/p ex lap 03/01 with placement of drains by Dr. Hills. Fever and WBC up slightly. Wound cx growing e coli, sensitive to Zosyn. Fluconazole. Check CXR Continue TPN, K+ improved. Good urine output. Output per NG and ostomy down since 03/01 ex lap. Continued tachycardia. Hold LR as patient with trace edema. Start fentanyl patch for pain. He got 28 mg iv morphine yesterday. Starting fentanyl at 12mcg d /t possible interaction with Fluconazole. 1 unit PRBCs given 03/01. Total of 4 units transfused Ferrlicit dose given 02/25, plan to repeat dose 03/04. Discussed with nursing who provide supplemental history. Encourage activity. Prognosis guarded 03/05/18 s/p ex lap 03/01 with placement of drains by Dr. Hills. Wound VAC. Fever. WBC down slightly. Wound cx growing e coli, sensitive to Zosyn. Fluconazole. Check CXR. Continue TPN, decrease Mg. Good urine output. Output per NG up yesterday. Continued tachycardia. Holding LR as patient with trace edema. Appears more comfortable with fentanyl patch for pain. Platelets trending up. Check inflammatory markers. If continued fever, consider repeating CT Encourage activity. 03/06/18 Temp elevations to 100.5 - 101.7. Persistent tachycardia in 130s. BP 100's. WBC with gradual trend down to 17.9 - was 25.0 on 03/02. Platelets trending up to 971 (was 407 on 03/02). Electrolytes and renal status stable - on TPN. Will continue with Zosyn and Diflucan for antimicrobial coverage. Continue with wound vac and drains. CT scan of ab/pelvis to exclude occult abscess formation. Encourage continued activities. 03/07/18 WBC with gradual trend down to 14.3 - was 17.9 on yesterday. Platelets elevated at 961 (was 971 yesterday). Hemoglobin persistently low at 7.6; with continued tachycardia will give 1 unit of pRBC. Electrolytes and renal status stable - on TPN. Will continue with Zosyn for antimicrobial coverage; Dr Gomez added Vancomycin and increased Diflucan to 200mg daily. Continue with wound vac and drains. CT scan of ab/pelvis showed possible new abscess formation in the suprapubic region and omental area. Encourage continued activities. 03/08/18 WBC with increase back to 17.1. HGB increased to 8.2 post transfusion yesterday. Pharm recommended changing Zosyn to Meropenem - did agree. Continue vancomycin and Diflucan. Will continue with TPN for nutritional support - NS bolus of 500cc to help with tachycardia. Continue with pain control. 03/09/18 Temp elevations continue. WBC with decrease to 15.6, but increased bands noted. Renal status and electrolytes stable. Continues of Meropenem, vancomycin, and Diflucan for coverage. Dr Gomez plan repeating CT scan with contrast (though NG) tomorrow to check for bowel function and further abscesses. TPN for nutritional and volume support. Continue with MS for pain, add Aspercreme for muscle discomfort. 03/10/18 Temp elevations continue. WBC 16.4. Renal status and electrolytes stable. Little change in overall status. CT ab/pelvis shown abscess with drain in place, however abscess has increased in size. Sx working to have drains flushed. Continues on Meropenem, vancomycin, and Diflucan for coverage. TPN for nutritional and volume support. Will give 500cc NS bolus to help improve BP. 03/11/18 Temp elevations continue. WBC trended down to 14. Renal status and electrolytes stable. Little change in overall status. CT ab/pelvis shown abscess with drain in place, however abscess has increased in size. Sx working to have drains flushed. Continues on Meropenem, vancomycin, and Diflucan for coverage. TPN for nutritional and volume support. Repeat 500cc NS bolus today and add metoprolol for tachycardia as BP allows. Continue pain control. 03/12/18 Temp elevations continue. WBC trended down to 12.7. Renal status and electrolytes stable. Little change in overall status. CT ab/pelvis shown abscess with drain in place, however abscess has increased in size per CT 03/10/18. Sx working to have drains flushed. Continues on Meropenem, vancomycin, and Diflucan for coverage. TPN for nutritional and volume support. Added q12hr metoprolol in attempt to control heart rate, only marginally working and could be titrated if blood pressure allows. Continue pain control. 03/13/18 WBC with trend down, but still with tachycardia and intermittent temp elevations. Continues on Meropenem, vancomycin, and Diflucan for coverage. TPN for nutritional and volume support. Continue pain control. 03/14/18 WBC with elevation to 13.4. CT showing decrease size of abscess. Continues on Meropenem, vancomycin, and Diflucan for coverage. TPN for nutritional and volume support. Electrolytes and renal status stable. Continue pain control. Continue activities as able. 03/15/18 WBC with stable at 13.7. Platelets with decrease to 594. Less temp elevations seen. Continues on Meropenem, vancomycin, and Diflucan for coverage. TPN for nutritional and volume support. Electrolytes and renal status stable. Dr Gomez trying NG clamping and clear liquids. Continue pain control. Continue activities as able. 03/16/18 WBC with decrease to 11.7. Platelets with decrease to 546. Less temp elevations seen. Continues on Meropenem, vancomycin, and Diflucan for coverage. TPN for nutritional and volume support. Electrolytes and renal status stable. NG removed; clear liquids. 03/17/18 WBC with decrease to 10.1. Platelets with decrease to 529. Less temp elevations seen. Evaluated by Dr Ac today - vancomycin stopped and changed meropenem to Zosyn and continued Diflucan. TPN for nutritional and volume support. Electrolytes and renal status stable. Advanced to regular diet but oral drive low. HGB variable, but trend down. Will give 1 unit pRBC due to continued tachycardia in post op patent. Continue pain control. Continue activities as able - walking in halls with nursing help. 03/18/2018 White blood cell count today is up mildly to 12.1. Bands are up to 7 from one yesterday. He has been afebrile over 24 hours. Hemoglobin improved to 9.5 up from 7.1 yesterday. He received 1 unit of blood yesterday. He does have mildly elevated phosphorus and magnesium. Discussed with pharmacy. The rate of his TPN will be decreased. Will recheck phosphorus and magnesium tomorrow. Repeat INR tomorrow. Repeat CBC and renal panel tomorrow. Advance diet as tolerated. Will try oral supplements. Continue ambulation with assist. The patient continues to have persistent tachycardia this hospital course, but rate is slowly improving. No real change with transfusion of 1 unit of blood. Recheck C-reactive protein tomorrow Discussed case with CCU nursing. We'll check a vitamin B-12 tomorrow regarding borderline low B-12 level Greater than 40 minutes of critical care time spent seeing and evaluating the patient in determining care plan.
--- NOTE | 2018-03-18 13:43 | Progress Note ---
DATE 03/18/2018 FINDINGS Cosmo was seen this morning on rounds. He was a little less verbal today. OBJECTIVE VITALS: Afebrile. Normotensive. Please refer to EMR. ABDOMEN: Soft. Minimal incisional tenderness. CLIFT[place] drains are functioning and remain in place. LABORATORY/RADIOGRAPHIC EVALUATION CBC today was obtained. White count overall is stable but slightly increased at 12,000. Hemoglobin is 9.5. CMP without marked abnormalities. ASSESSMENT 32-year-old gentleman status post exploratory laparotomies x2 with creation of end colostomy and drainage of multiple intraabdominal abscesses. Patient overall stable. PLAN Patient does appear to have some increasing output through his colostomy. He has not been taking much in the way of p.o. Hopefully over the course of the weekend his p.o. intake will begin to increase. Overall patient doing well. I have reviewed Dr. Ac' notes from yesterday. SYLVAIN
--- NOTE | 2018-03-18 15:02 | Pharmacy Consult-TPN/PPN ---
Pharmacy Consult-TPN/PPN - Laboratory Information Chemistry Turbidity < 20 (0-20) 03/18/18 04:01 Sodium 142 MEQ/L (136-146) 03/18/18 04:01 Potassium 4.3 MEQ/L (3.6-5) 03/18/18 04:01 Chloride 106 MEQ/L (98-107) 03/18/18 04:01 Carbon Dioxide 27 MEQ/L (22-30) 03/18/18 04:01 Anion Gap 9 meq/L (5-15) 03/18/18 04:01 BUN 14.0 MG/DL (9-20) 03/18/18 04:01 Creatinine 0.5 mg/dL (0.8-1.5) L 03/18/18 04:01 GFR Calculation 195 03/18/18 04:01 BUN/Creatinine Ratio 28 RATIO (6-26) H 03/18/18 04:01 Glucose 97 MG/DL (75-110) 03/18/18 04:01 Glucometer 133 mg/dL (65-110) 03/18/18 13:04 Calculated Osmolality 274 MOSM/KG (261-280) 03/18/18 04:01 Calcium 8.6 MG/DL (8.4-10.2) 03/18/18 04:01 Ionized Calcium [place] 1.11 MMOL/L (1.12-1.32) L 02/25/18 04:20 Phosphorus 5.3 MG/DL (2.5-4.5) H 03/18/18 04:01 Magnesium 2.4 MG/DL (1.6-2.3) H 03/18/18 04:01 Iron 11 ug/dL (49-181) L 02/20/18 20:07 TIBC 342 ug/dL (261-497) 02/20/18 20:07 % Saturation 3 % (13-59) L 02/20/18 20:07 Ferritin 2.44 ng/mL (17-464) L 02/20/18 20:07 Total Bilirubin 0.70 MG/DL (0.20-1.30) 03/18/18 04:01 Icterus Index < 2 (0-7) 03/18/18 04:01 AST 26 U/L (17-59) 03/18/18 04:01 ALT 53 U/L (1-50) H 03/18/18 04:01 Alkaline Phosphatase 181 U/L (38-126) H 03/18/18 04:01 C-Reactive Protein 181.6 mg/L (0-9) H 03/14/18 04:00 Total Protein 6.1 g/dL (6.3-8.2) L 03/18/18 04:01 Albumin 2.8 g/dL (3.5-5.0) L 03/18/18 04:01 Globulin 3.3 G/DL (2.4-3.6) 03/18/18 04:01 Albumin/Globulin Ratio 0.8 RATIO (1.1-2.2) L 03/18/18 04:01 Lipase 21 U/L (23-300) L 02/20/18 15:25 Plasma Lactate 1.3 MMOL/L (0.6-2.2) 02/24/18 04:13 Vitamin B12 367 pg/mL (239-931) 02/20/18 20:07 Procalcitonin < 0.05 NG/ML 02/21/18 04:11 Specimen Hemolysis < 15 (0-25) 03/18/18 04:01 Intake and Output 03/17/18 03/18/18 03/19/18 06:59 06:59 06:59 Intake Total 4375.5465 / 4375.5465 3621.666 / 3621.666 Output Total 4148 / 4148 3792 / 3792 463 / 463 Balance 227.5465 / 227.5465 -170.334 / -170.334 -463 / -463 Weight 61.2 kg 63.4 kg 62.5 kg Intake: IV 3775.5465 / 3775.5465 2891.666 / 2891.666 Fat Emulsion 20% 250 ml @ 25 250.000 / 250.000 258.333 / 258.333 mls/hr IV 1600 [facility] Rx#: [id number] Fluconazole Pb 200 mg In 100 ml 100 / 100 100 / 100 @ 100 mls/hr IV Q24H [facility] Rx#: [id number] Meropenem 1 gm In Ns 100 ml @ 300 / 300 200 mls/hr IV Q8H [facility] Rx#: [id number] Multi-Vit Infusion 10 ml Multi 96.667 / 96.667 2013.333 / 2013.333 -Trace Elements 1 ml In TPN - Standard Formula 2,000 ml @ 100 mls/hr IV .[id number] [facility] Rx#: [id number] Multi-Vit Infusion 10 ml Multi / -Trace Elements 1 ml SODIUM PHOSPHATE (mEq) 20 meq In TPN - Standard Formula 2,000 ml @ 100 mls/hr IV .[id number] [facility] Rx#: [id number] Piperacillin/Tazobactam 3.375 400 / 400 gm In D5w 100 ml @ 200 mls/hr IV Q6H [facility] Rx#:[id number] Vancomycin 1,250 mg In NS 250ml 1000.000 / 1000.000 120 / 120 250 ml @ 200 mls/hr IV Q6H [facility] Rx#:[id number] Oral 300 / 300 Intake (Blood Product) Amt 430 / 430 Intake, Catheter Irrigant 300 / 300 300 / 300 Amount Output: Urine 980 / 980 248 / 248 Stool 30 / 30 145 / 145 75 / 75 Urine Amount (Catheter) 3613 / 3613 2323 / 2323 Wound Drainage 505 / 505 344 / 344 140 / 140 Abdomen 45 / 45 20 / 20 Left Anterior Medial Abdomen 160 / 160 70 / 70 80 / 80 Left Lower Abdomen 160 / 160 137 / 137 30 / 30 Left Lower Lateral Abdomen 125 / 125 102 / 102 30 / 30 Right Anterior Medial Abdomen 10 / 10 10 / 10 Right Lower Lateral Abdomen 5 / 5 5 / 5 Other: Urine Appearance Clear Clear Clear Urine Color Yellow Light Meliza Light Meliza Urine Odor Normal Stool Characteristics Mucoid Stool Color Brown Green Green Stool Consistency Watery Liquid Liquid Size of Bowel Movement Moderate Drain Type Left Anterior Medial Abdomen Bulb [place] Bulb [place] Bulb [place] Left Lower Abdomen Bulb [place] Bulb [place] Bulb [place] Left Lower Lateral Abdomen Bulb [place] Bulb [place] Bulb [place] Right Anterior Medial Abdomen Bulb [place] Bulb [place] Right Lower Lateral Abdomen Bulb [place] Bulb [place] - Consult Information TPN CONSULT: DAY #23 Patient is currently on Clinimix-E 5%/20%. Rate has been decreased this morning from 100 ml/hr to 82 ml/hr to decrease the amount of phosphorus and magnesium the patient receives in this TPN that comes premixed with electrolytes. At 82 ml /hr the patient will receive one 2 liter TPN bag. At 100 ml/hr the patient receives 2.4 liters which is 20% more of all the phosphorus and magnesium in the bag within the 24 hrs. Today the patient was able to eat a small amount of oatmeal and milk this morning as well as sips of lemon-capitan grande band soda. The TPN at the rate of 82 ml/hr provides 1360 kcal of non-protein calories and the 250 ml 20% lipids provides 500 kcal. Total non-protein kcals per day = 1860. It is appropriate to begin to decrease the amount of calories he receives from the TPN as the he regains the ability to take nutrition by mouth. BMP, Phosphorus and Magnesium ordered for tomorrow's labs. Thank you. Vidya Munoz, PharmD
[2018-03-18] MEDS: FAT EMULSION 20% 250 ML IV SCH (16:16)
[2018-03-18] MEDS: FLUCONAZOLE PB 200 MG/100 ML BAG IV SCH (16:54)
[2018-03-18] MEDS: INSULIN ASPART 100unit/ml INJECTION SQ PRN (18:31)
[2018-03-18] MEDS: SALINE FLUSH 10ml SYRINGE IVF PRN (21:17)
[2018-03-19] MEDS: MULTI-VIT INFUSION 10 ML, MULTI-TRACE ELEMENTS 1 ML in TPN - STANDARD FORMULA 2,000 ML IV SCH (00:30)
[2018-03-19] MEDS: SALINE FLUSH 10ml SYRINGE IVF PRN ×2 (04:29→22:07)
[2018-03-19] MEDS: METOCLOPRAMIDE 10mg/2ml INJECTION IVP PRN ×2 (04:29→19:17)
[2018-03-19] MEDS: PIPERACILLIN/TAZOBACTAM 3.375 GM in D5W 100 ML IV SCH ×4 (06:25→18:20)
[2018-03-19] MEDS: ENOXAPARIN 40 MG/0.4 ML INJECTION SQ SCH (09:04)
[2018-03-19] MEDS: METOPROLOL 5mg/5ml INJECTION IVP SCH ×2 (09:05→22:07)
[2018-03-19] MEDS: PANTOPRAZOLE 40 MG INJECTION IVP SCH (09:05)
--- NOTE | 2018-03-19 11:43 | Pharmacy Consult-TPN/PPN ---
Pharmacy Consult-TPN/PPN - Laboratory Information Chemistry Turbidity < 20 (0-20) 03/19/18 04:29 Sodium 141 MEQ/L (136-146) 03/19/18 04:29 Potassium 4.5 MEQ/L (3.6-5) 03/19/18 04:29 Chloride 102 MEQ/L (98-107) 03/19/18 04:29 Carbon Dioxide 27 MEQ/L (22-30) 03/19/18 04:29 Anion Gap 12 meq/L (5-15) 03/19/18 04:29 BUN 12.0 MG/DL (9-20) 03/19/18 04:29 Creatinine 0.6 mg/dL (0.8-1.5) L 03/19/18 04:29 GFR Calculation 158 03/19/18 04:29 BUN/Creatinine Ratio 20 RATIO (6-26) 03/19/18 04:29 Glucose 121 MG/DL (75-110) H 03/19/18 04:29 Glucometer 144 mg/dL (65-110) 03/19/18 00:21 Calculated Osmolality 272 MOSM/KG (261-280) 03/19/18 04:29 Calcium 9.1 MG/DL (8.4-10.2) 03/19/18 04:29 Ionized Calcium [place] 1.11 MMOL/L (1.12-1.32) L 02/25/18 04:20 Phosphorus 6.1 MG/DL (2.5-4.5) H 03/19/18 04:29 Magnesium 2.4 MG/DL (1.6-2.3) H 03/19/18 04:29 Iron 11 ug/dL (49-181) L 02/20/18 20:07 TIBC 342 ug/dL (261-497) 02/20/18 20:07 % Saturation 3 % (13-59) L 02/20/18 20:07 Ferritin 2.44 ng/mL (17-464) L 02/20/18 20:07 Total Bilirubin 0.70 MG/DL (0.20-1.30) 03/18/18 04:01 Icterus Index < 2 (0-7) 03/19/18 04:29 AST 26 U/L (17-59) 03/18/18 04:01 ALT 53 U/L (1-50) H 03/18/18 04:01 Alkaline Phosphatase 181 U/L (38-126) H 03/18/18 04:01 C-Reactive Protein 75.0 mg/L (0-9) H 03/19/18 04:29 Total Protein 6.1 g/dL (6.3-8.2) L 03/18/18 04:01 Albumin 3.5 g/dL (3.5-5.0) 03/19/18 04:29 Globulin 3.3 G/DL (2.4-3.6) 03/18/18 04:01 Albumin/Globulin Ratio 0.8 RATIO (1.1-2.2) L 03/18/18 04:01 Lipase 21 U/L (23-300) L 02/20/18 15:25 Plasma Lactate 1.3 MMOL/L (0.6-2.2) 02/24/18 04:13 Vitamin B12 > 1000 pg/mL (239-931) H 03/19/18 04:29 Procalcitonin < 0.05 NG/ML 02/21/18 04:11 Specimen Hemolysis < 15 (0-25) 03/19/18 04:29 Intake and Output 03/18/18 03/19/18 03/20/18 06:59 06:59 06:59 Intake Total 3621.666 / 3621.666 3369.566 / 3369.566 80.633 / 80.633 Output Total 3792 / 3792 4925 / 4925 895 / 895 Balance -170.334 / -170.334 -1555.434 / -1555.434 -814.367 / -814.367 Weight 63.4 kg 62.5 kg 62 kg Intake: IV 2891.666 / 2891.666 3069.566 / 3069.566 80.633 / 80.633 Fat Emulsion 20% 250 ml @ 25 258.333 / 258.333 250.000 / 250.000 mls/hr IV 1600 [facility] Rx#: [id number] Fluconazole Pb 200 mg In 100 ml 100 / 100 100 / 100 @ 100 mls/hr IV Q24H [facility] Rx#: [id number] Multi-Vit Infusion 10 ml Multi 333 / 2319.566 / 2319.566 80.633 / 80.633 -Trace Elements 1 ml In TPN - Standard Formula 2,000 ml @ 82 mls/hr IV .Q24H [facility] Rx#: [id number] Piperacillin/Tazobactam 3.375 400 / 400 400 / 400 gm In D5w 100 ml @ 200 mls/hr IV Q6H [facility] Rx#:[id number] Vancomycin 1,250 mg In NS 250ml 120 / 120 250 ml @ 200 mls/hr IV Q6H [facility] Rx#:[id number] Intake (Blood Product) Amt 430 / 430 Intake, Catheter Irrigant 300 / 300 300 / 300 Amount Output: Urine 980 / 980 2263 / 2263 Stool 145 / 145 225 / 225 Emesis 50 / 50 Urine Amount (Catheter) 2323 / 2323 1835 / 1835 895 / 895 Wound Drainage 344 / 344 552 / 552 Abdomen 20 / 20 Left Anterior Medial Abdomen 70 / 70 210 / 210 Left Lower Abdomen 137 / 137 170 / 170 Left Lower Lateral Abdomen 102 / 102 160 / 160 Right Anterior Medial Abdomen 10 10 2 / 2 Right Lower Lateral Abdomen 5 / 5 10 10 Other: Urine Appearance Clear Clear Clear Urine Color Light Meliza Dark Yellow Bright Yellow Urine Odor Normal Stool Characteristics Mucoid Stool Color Green Brown Green Stool Consistency Liquid Watery Size of Bowel Movement Moderate Large Drain Type Left Anterior Medial Abdomen Bulb [place] Bulb Monsey Left Lower Abdomen Bulb [place]onse[place] Bulb Monsey Left Lower Lateral Abdomen Bulb [place] Bulb [place]onsey Right Anterior Medial Abdomen Bulb [place] Bulb Monsey Right Lower Lateral Abdomen Bulb [place] Bulb [place]onsey # Unmeasured Emesis Episodes 1 - Consult Information TPN CONSULT: DAY #24 Patient is currently on Clinimix-E 5%/20%. Rate IS 82 ml/hr. The TPN at the rate of 82 ml/hr provides 1360 kcal of non-protein calories and the 250 ml 20% lipids provides 500 kcal. Total non-protein kcals per day = 1860. TPN hang time will be adjusted to the afternoon instead of the night. New Custom TPN will be hung this afternoon. The Phophorus has been removed and the Magnesium and the Calcium have been decreased. BMP, Phosphorus and Magnesium ordered for tomorrow's labs. Thank you. Vidya Munoz, BethanyD
--- NOTE | 2018-03-19 13:06 | Progress Note ---
- Date 03/19/18 Subjective: The patient was seen this afternoon in his room in CCU. He states he feels okay. He is breathing okay. He does admit to some abdominal pain. His nurse states he didn't sleep well last night. He did throw up 50 cc last night. He walked well in the halls today with assist. He continues to have good output in his ostomy with gas and stool. He continues to have tachycardia in the 120s. He has had persistent tachycardia during this hospital course, but the rate is down from what it was in prior weeks in the 130s to 140s. Objective Vital signs: Temperature 98.8 F 03/19/18 08:00 Pulse Rate 135 H 03/19/18 11:00 Respiratory Rate 17 03/19/18 11:00 Blood Pressure 101/67 03/19/18 11:00 Pulse Oximetry 96 03/19/18 11:00 Rhythm: Sinus Tachycardia Height/Weight/BMI: Height 1.75 m Weight 62 kg Body Mass Index 22.5 Comments: Afebrile, heart rate 126, blood pressure 104/71, O2 sat 97% on room air Urine output 1105 ML's yesterday GEN-alert, no acute distress HEENT-oropharynx is moist CV-tachycardic rate with irregular rhythm CHEST-clear to auscultation anteriorly ABD-soft, positive bowel sounds, mild tenderness. Normal bowel sounds. Drains in place without significant erythema. Ostomy with stool and small amount of air in the bag. -normal colored urine in the Mcdermott bag EXT-no edema, SCDs are on NEURO-no focal deficits, patient has autism SKIN-warm and dry, no rashes Results - Labs CBC & Chem 7: 03/19/18 04:29 03/19/18 04:29 Labs: Bands are 6 down from 7. Neutrophils 78 down from 79. C-reactive protein is 75 down from 181 Phosphorus 6.1 up from 5.3. Magnesium is stable at 2.4. B-12 greater than 1000 Microbiology Results: Microbiology 03/01/18 18:56 Abdomen, Left Upper Gram Stain - Final 03/01/18 18:56 Abdomen, Left Upper Surgical Culture - Final Escherichia coli Anaerobic Gram-Negative Bhanu Anaerobic Gram-Positive Cocci 02/23/18 20:15 Peripheral/Iv Start Gram Stain - Final Not performed 02/23/18 20:15 Peripheral/Iv Start Blood Culture - Final No Growth After 5 Days 02/23/18 20:05 Peripheral/Iv Start Gram Stain - Final Not performed 02/23/18 20:05 Peripheral/Iv Start Blood Culture - Final No Growth After 5 Days 02/20/18 20:07 Peripheral/Iv Start Blood Culture - Final No Growth After 5 Days Assessment and Plan (1) Megacolon Problem details: Toxic megacolon Current visit: Yes Status: Acute (2) Perforation of colon Problem details: Perforation of the splenic flexure due to ischemic changes Current visit: Yes Status: Acute Assessment and Plan: Assessment 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 He has had a total of 6 units of blood, he received his last unit 03/17/2018 Autism Dental problems Hypophosphatemia-resolved Hyperphosphatemia-on TPN Hypermagnesemia-on TPN Hypokalemia (Not POA) -resolved XIOMARA-resolved LLL atelectasis Acute kidney injury with oliguria-postop -resolved Hyperkalemia (Not POA) -resolved Thrombocytosis (Not POA) Mild elevation of INR of 1.39 on 03/19/2018 Plan White blood cell count continues to increase and is 16.5 today. Bands are 6 down from 7 yesterday. Hemoglobin has improved to 10.9. Patient remains afebrile. C-reactive protein has decreased from 181 down to 75. We'll continue on fluconazole and Zosyn for intra-abdominal abscesses. Advance diet as tolerated. Continue TPN for now, he will receive a customized formula with no phosphorus and decreased magnesium and calcium. Continue ambulation with assist Recheck CBC with manual differential, renal panel, magnesium tomorrow. DVT Prophylaxis: Lovenox GI Prophylaxis: Protonix Resuscitation Status: Full Code - Physician Narrative Narrative: Date: 03/19/18 Time: 1302 Hospital Course Summary Disclaimer: The visit summary below is not to be considered part of the above Progress Note. Hospital Course: 02/20/18 Admit, CCU. Bowel rest - NPO. Cont IVF - 1/2 NS with Na of 144. Consult Dr. Gomez for mgt. Sx management with Protonix, morphine, Zofran. Cont IVF for tachycardia; sepsis. Repeat lactate. Cont Zosyn for bowel coverage. Follow BC results. Iron w/u in progress. Type & screen ordered. D/W with Dr. Stevens and RN. 02/22/18 Gastrografin enema 02/21 with copious stool resulting. However, still with stool in rectal vault. Deferring further management to surgery team, await recs. Cont Zosyn given bandemia, tachycardia and concern for toxic megacolon. 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 Clinically deteriorating. Going for surgery for perforation/free air. Near total colectomy performed. Became hypotensive, tachycardic with rates into 180s. Aggressively fluid resuscitated. 02/24/18 UOP, tachycardia improved. Cont abx. Initiate TPN. Monitoring for return of bowel fxn. 02/25/18 Given Kphos Transfused another 1U PRBCs. Stopped LR. Surgery to trial clamping NGT. Intermittently febrile- rectal Tylenol. 02/26/18 Did have fever overnight. Has tolerated NGT clamping. No O2 requirements. No N/V /CP. Hasn't been able to perform IS very well. 02/27/18 Remains on TPN, tolerating limited oral liquids earlier today however resultant emesis has required resumption of NG suction. Good output per ostomy; 2400 mL output reported during prior 24-hour period. Hemoglobin drifting down, ongoing hypokalemia-post being reassessed this afternoon. Potassium increased and TPN but may require supplemental boluses due to potassium lost in stool and emesis. Persistent tachycardia-may require additional blood transfusion. Remains on Zosyn for peritonitis; chest x-ray with pleural effusion but no evidence of pneumonia. May require repeat CT abdomen/pelvis to exclude intra-abdominal abscess. 02/28/18 Remains on TPN, electrolytes stable. Good urine output per ostomy but continues to have high volume output per NG. Output significantly higher than input, weight down, ongoing tachycardia--> 1 L fluid bolus tonight. Anticipate ongoing need for fluids to match fluid losses. CT abdomen/pelvis discussed with radiology this evening and subsequently with Dr. Hills; will review further with radiology tomorrow to determine if drainage can be performed of the subphrenic abscess percutaneously or if surgical drainage/washout will be needed due to presence of multiple smaller fluid collections suggestive of early abscesses. Dr. Hills notified patient 's parents of findings. Hemoglobin continues to drift down very slowly, may be slightly hemoconcentrated at present. Type and screen in a.m. Anticipating transfusion in the next 1-2 days. 03/01/18 OP Day - Exploratory laparotomy, drainage of multiple intraabdominal abscesses, fecal disimpaction, intraoperative flexible proctoscopy. Subdiaphragmatic abscess and left upper quadrant-discussed with radiology and message subsequently relayed to Dr. Hills regarding potential risk of percutaneous drainage. Patient tenably scheduled to return to the operating room later today. Several very small extensive gas in the pelvis without clear room enhancement to suggest abscess, may simply be postoperative change. Remains on TPN, electrolytes stable. Good urine output per ostomy but continues to have high volume output per NG. Output significantly higher than input, weight down, ongoing tachycardia--> 1 L fluid bolus this a.m. and continue normal saline at 100 mL per hour. 2 units PRBCs matched preoperatively; one being given prior to surgery for hemoglobin 7.4. 03/02/18 s/p ex lap with placement of drains by Dr. Hills. Febrile before surgery. WBC up post-op. Wound cx growing GPC, GNR, GPR. Continue Zosyn Remains on TPN, reduce K+. Good urine output. Output per NG down. Continued tachycardia. Continue IVF and treat pain. Output significantly higher than input, weight down, ongoing tachycardia--> 1 L fluid bolus this a.m. and continue normal saline at 100 mL per hour. Anticipate ongoing need for fluids to match fluid losses. 1 unit PRBCs given 03/01. Total of 4 units transfused Ferrlecit dose given 02/25, plan to repeat dose 03/04. Discussed with nursing who provide supplemental history; mother updated. Prognosis guarded. 03/03/18 s/p ex lap 03/01 with placement of drains by Dr. Hills. Afebrile and WBC down. Wound cx growing GPC, GNR, GPR. Continue Zosyn and fluconazole Continue TPN, K+ improved. Good urine output. Output per NG and ostomy down since 03/01 ex lap. Continued tachycardia. Continue IVF and treat pain. ? whether anxious. Trial of Ativan Anticipate ongoing need for fluids to match fluid losses. 1 unit PRBCs given 03/01. Total of 4 units transfused Ferrlecit dose given 02/25, plan to repeat dose 03/04. Discussed with nursing who provide supplemental history; mother updated. Prognosis guarded. 03/04/18 s/p ex lap 03/01 with placement of drains by Dr. Hills. Fever and WBC up slightly. Wound cx growing e coli, sensitive to Zosyn. Fluconazole. Check CXR Continue TPN, K+ improved. Good urine output. Output per NG and ostomy down since 03/01 ex lap. Continued tachycardia. Hold LR as patient with trace edema. Start fentanyl patch for pain. He got 28 mg iv morphine yesterday. Starting fentanyl at 12mcg d /t possible interaction with Fluconazole. 1 unit PRBCs given 03/01. Total of 4 units transfused Ferrlicit dose given 02/25, plan to repeat dose 03/04. Discussed with nursing who provide supplemental history. Encourage activity. Prognosis guarded 03/05/18 s/p ex lap 03/01 with placement of drains by Dr. Hills. Wound VAC. Fever. WBC down slightly. Wound cx growing e coli, sensitive to Zosyn. Fluconazole. Check CXR. Continue TPN, decrease Mg. Good urine output. Output per NG up yesterday. Continued tachycardia. Holding LR as patient with trace edema. Appears more comfortable with fentanyl patch for pain. Platelets trending up. Check inflammatory markers. If continued fever, consider repeating CT Encourage activity. 03/06/18 Temp elevations to 100.5 - 101.7. Persistent tachycardia in 130s. BP 100's. WBC with gradual trend down to 17.9 - was 25.0 on 03/02. Platelets trending up to 971 (was 407 on 03/02). Electrolytes and renal status stable - on TPN. Will continue with Zosyn and Diflucan for antimicrobial coverage. Continue with wound vac and drains. CT scan of ab/pelvis to exclude occult abscess formation. Encourage continued activities. 03/07/18 WBC with gradual trend down to 14.3 - was 17.9 on yesterday. Platelets elevated at 961 (was 971 yesterday). Hemoglobin persistently low at 7.6; with continued tachycardia will give 1 unit of pRBC. Electrolytes and renal status stable - on TPN. Will continue with Zosyn for antimicrobial coverage; Dr Gomez added Vancomycin and increased Diflucan to 200mg daily. Continue with wound vac and drains. CT scan of ab/pelvis showed possible new abscess formation in the suprapubic region and omental area. Encourage continued activities. 03/08/18 WBC with increase back to 17.1. HGB increased to 8.2 post transfusion yesterday. Pharm recommended changing Zosyn to Meropenem - did agree. Continue vancomycin and Diflucan. Will continue with TPN for nutritional support - NS bolus of 500cc to help with tachycardia. Continue with pain control. 03/09/18 Temp elevations continue. WBC with decrease to 15.6, but increased bands noted. Renal status and electrolytes stable. Continues of Meropenem, vancomycin, and Diflucan for coverage. Dr Gomez plan repeating CT scan with contrast (though NG) tomorrow to check for bowel function and further abscesses. TPN for nutritional and volume support. Continue with MS for pain, add Aspercreme for muscle discomfort. 03/10/18 Temp elevations continue. WBC 16.4. Renal status and electrolytes stable. Little change in overall status. CT ab/pelvis shown abscess with drain in place, however abscess has increased in size. Sx working to have drains flushed. Continues on Meropenem, vancomycin, and Diflucan for coverage. TPN for nutritional and volume support. Will give 500cc NS bolus to help improve BP. 03/11/18 Temp elevations continue. WBC trended down to 14. Renal status and electrolytes stable. Little change in overall status. CT ab/pelvis shown abscess with drain in place, however abscess has increased in size. Sx working to have drains flushed. Continues on Meropenem, vancomycin, and Diflucan for coverage. TPN for nutritional and volume support. Repeat 500cc NS bolus today and add metoprolol for tachycardia as BP allows. Continue pain control. 03/12/18 Temp elevations continue. WBC trended down to 12.7. Renal status and electrolytes stable. Little change in overall status. CT ab/pelvis shown abscess with drain in place, however abscess has increased in size per CT 03/10/18. Sx working to have drains flushed. Continues on Meropenem, vancomycin, and Diflucan for coverage. TPN for nutritional and volume support. Added q12hr metoprolol in attempt to control heart rate, only marginally working and could be titrated if blood pressure allows. Continue pain control. 03/13/18 WBC with trend down, but still with tachycardia and intermittent temp elevations. Continues on Meropenem, vancomycin, and Diflucan for coverage. TPN for nutritional and volume support. Continue pain control. 03/14/18 WBC with elevation to 13.4. CT showing decrease size of abscess. Continues on Meropenem, vancomycin, and Diflucan for coverage. TPN for nutritional and volume support. Electrolytes and renal status stable. Continue pain control. Continue activities as able. 03/15/18 WBC with stable at 13.7. Platelets with decrease to 594. Less temp elevations seen. Continues on Meropenem, vancomycin, and Diflucan for coverage. TPN for nutritional and volume support. Electrolytes and renal status stable. Dr Gomez trying NG clamping and clear liquids. Continue pain control. Continue activities as able. 03/16/18 WBC with decrease to 11.7. Platelets with decrease to 546. Less temp elevations seen. Continues on Meropenem, vancomycin, and Diflucan for coverage. TPN for nutritional and volume support. Electrolytes and renal status stable. NG removed; clear liquids. 03/17/18 WBC with decrease to 10.1. Platelets with decrease to 529. Less temp elevations seen. Evaluated by Dr Ac today - vancomycin stopped and changed meropenem to Zosyn and continued Diflucan. TPN for nutritional and volume support. Electrolytes and renal status stable. Advanced to regular diet but oral drive low. HGB variable, but trend down. Will give 1 unit pRBC due to continued tachycardia in post op patent. Continue pain control. Continue activities as able - walking in halls with nursing help. 03/18/2018 White blood cell count today is up mildly to 12.1. Bands are up to 7 from one yesterday. He has been afebrile over 24 hours. Hemoglobin improved to 9.5 up from 7.1 yesterday. He received 1 unit of blood yesterday. He does have mildly elevated phosphorus and magnesium. Discussed with pharmacy. The rate of his TPN will be decreased. Will recheck phosphorus and magnesium tomorrow. Repeat INR tomorrow. Repeat CBC and renal panel tomorrow. Advance diet as tolerated. Will try oral supplements. Continue ambulation with assist. The patient continues to have persistent tachycardia this hospital course, but rate is slowly improving. No real change with transfusion of 1 unit of blood. Recheck C-reactive protein tomorrow Discussed case with CCU nursing. We'll check a vitamin B-12 tomorrow regarding borderline low B-12 level Greater than 40 minutes of critical care time spent seeing and evaluating the patient in determining care plan. 03/19/2018 White blood cell count continues to increase and is 16.5 today. Bands are 6 down from 7 yesterday. Hemoglobin has improved to 10.9. Patient remains afebrile. C-reactive protein has decreased from 181 down to 75. We'll continue on fluconazole and Zosyn for intra-abdominal abscesses. Advance diet as tolerated. Continue TPN for now, he will receive a customized formula with no phosphorus and decreased magnesium and calcium. Continue ambulation with assist Recheck CBC with manual differential, renal panel, magnesium tomorrow.
[2018-03-19] MEDS ORDERED: AMINO ACIDS IV SCH (15:30)
[2018-03-19] MEDS ORDERED: DEXTROSE IV SCH (15:30)
[2018-03-19] MEDS: FAT EMULSION 20% 250 ML IV SCH (16:15)
[2018-03-19] MEDS: FLUCONAZOLE PB 200 MG/100 ML BAG IV SCH (17:11)
[2018-03-19] MEDS: INSULIN ASPART 100unit/ml INJECTION SQ PRN (18:19)
[2018-03-19] MEDS: ALBUTEROL/IPRATROPIUM 2.5mg-0.5mg/3ml NEB IPPB SCH (18:25)
[2018-03-19] MEDS ORDERED: ALTEPLASE (Cathflo*) 2mg INJECTION IV ONE ×2 (20:41→20:42)
[2018-03-20] MEDS: PIPERACILLIN/TAZOBACTAM 3.375 GM in D5W 100 ML IV SCH ×4 (00:34→18:46)
--- NOTE | 2018-03-20 07:58 | Progress Note ---
DATE: 03/19/2018 FINDINGS Cosmo was seen this morning on rounds. Nurse states that he did have some nausea and vomiting last evening. Nurse also states that he has had a fair amount of output fortunately through his colostomy. VITALS: Afebrile. Normotensive. Please refer to EMR. CHEST: Clear to auscultation bilaterally. HEART: Regular rate and rhythm. Normal S1 and S2 without gallops, murmurs or clicks. LABORATORY/RADIOGRAPHIC EVALUATION The patient had a CBC today and his white count is up slightly at 16,000 from 12 ,000 yesterday. No significant increase in left shift. BMP obtained and found without marked abnormalities. ASSESSMENT 32-year-old gentleman status post exploratory laparotomies x 2 with lysis of adhesions and drainage of multiple intraabdominal abscesses. Overall patient making slow improvement. PLAN Continue with current care. Continue to encourage p.o. intake. Hopefully, nausea and vomiting will improve. It does appear that he has had return of his GI activity with a fair amount of output being noted in his colostomy. Will continue to follow closely. I am a little concerned in regards to increasing leukocytosis. MTDD
--- NOTE | 2018-03-20 08:17 | Pharmacy Consult-TPN/PPN ---
Pharmacy Consult-TPN/PPN - Laboratory Information Chemistry Turbidity < 20 (0-20) 03/20/18 04:27 Sodium 141 MEQ/L (136-146) 03/20/18 04:27 Potassium 4.5 MEQ/L (3.6-5) 03/20/18 04:27 Chloride 103 MEQ/L (98-107) 03/20/18 04:27 Carbon Dioxide 27 MEQ/L (22-30) 03/20/18 04:27 Anion Gap 11 meq/L (5-15) 03/20/18 04:27 BUN 14.0 MG/DL (9-20) 03/20/18 04:27 Creatinine 0.6 mg/dL (0.8-1.5) L 03/20/18 04:27 GFR Calculation 158 03/20/18 04:27 BUN/Creatinine Ratio 23 RATIO (6-26) 03/20/18 04:27 Glucose 99 MG/DL (75-110) 03/20/18 04:27 Glucometer 106 mg/dL (65-110) 03/20/18 00:24 Calculated Osmolality 272 MOSM/KG (261-280) 03/20/18 04:27 Calcium 8.9 MG/DL (8.4-10.2) 03/20/18 04:27 Ionized Calcium [place] 1.11 MMOL/L (1.12-1.32) L 02/25/18 04:20 Phosphorus 5.6 MG/DL (2.5-4.5) H 03/20/18 04:27 Magnesium 2.1 MG/DL (1.6-2.3) 03/20/18 04:27 Iron 11 ug/dL (49-181) L 02/20/18 20:07 TIBC 342 ug/dL (261-497) 02/20/18 20:07 % Saturation 3 % (13-59) L 02/20/18 20:07 Ferritin 2.44 ng/mL (17-464) L 02/20/18 20:07 Total Bilirubin 0.70 MG/DL (0.20-1.30) 03/18/18 04:01 Icterus Index < 2 (0-7) 03/20/18 04:27 AST 26 U/L (17-59) 03/18/18 04:01 ALT 53 U/L (1-50) H 03/18/18 04:01 Alkaline Phosphatase 181 U/L (38-126) H 03/18/18 04:01 C-Reactive Protein 75.0 mg/L (0-9) H 03/19/18 04:29 Total Protein 6.1 g/dL (6.3-8.2) L 03/18/18 04:01 Albumin 3.5 g/dL (3.5-5.0) 03/19/18 04:29 Globulin 3.3 G/DL (2.4-3.6) 03/18/18 04:01 Albumin/Globulin Ratio 0.8 RATIO (1.1-2.2) L 03/18/18 04:01 Lipase 21 U/L (23-300) L 02/20/18 15:25 Plasma Lactate 1.3 MMOL/L (0.6-2.2) 02/24/18 04:13 Vitamin B12 > 1000 pg/mL (239-931) H 03/19/18 04:29 Procalcitonin < 0.05 NG/ML 02/21/18 04:11 Specimen Hemolysis < 15 (0-25) 03/20/18 04:27 Intake and Output 03/19/18 03/20/18 03/21/18 06:59 06:59 06:59 Intake Total 3369.566 / 3369.566 2816.300 / 2816.300 39.633 / 39.633 Output Total 4925 / 4925 3930 / 3930 140 / 140 Balance -1555.434 / -1555.434 -1113.700 / -1113.700 -100.367 / -100.367 Weight 62.5 kg 62 kg 60.7 kg Intake: IV 3069.566 / 3069.566 2566.300 / 2566.300 39.633 / 39.633 Fat Emulsion 20% 250 ml @ 25 250.000 / 250.000 250.000 / 250.000 mls/hr IV 1600 [facility] Rx#: [id number] Fluconazole Pb 200 mg In 100 ml 100 / 100 100 / 100 @ 100 mls/hr IV Q24H [facility] Rx#: [id number] Multi-Vit Infusion 10 ml Multi 2319.566 / 2319.566 747.566 / 747.566 -Trace Elements 1 ml In TPN - Standard Formula 2,000 ml @ 82 mls/hr IV .Q24H [facility] Rx#: [id number] Piperacillin/Tazobactam 3.375 400 / 400 400 / 400 gm In D5w 100 ml @ 200 mls/hr IV Q6H [facility] Rx#:[id number] Sodium Chloride Conc 80 meq 1068.734 / 1068.734 39.633 / 39.633 Potassium Acetate Inj 60 meq Magnesium Sulfate Inj 4 meq Calcium Chloride 4.65 meq Multi -Vit Infusion 10 ml Multi- Trace Elements 1 ml In TPN - Custom Formula 2,000 ml @ 82 mls/hr IV .Q24H [facility] Rx#: [id number] Oral 250 / 250 Intake, Catheter Irrigant 300 / 300 Amount Output: Urine 2263 / 2263 Stool 225 / 225 1000 / 1000 Emesis 50 / 50 Urine Amount (Catheter) 1835 / 1835 2585 / 2585 140 / 140 Wound Drainage 552 / 552 345 / 345 Left Anterior Medial Abdomen 210 / 210 175 / 175 Left Lower Abdomen 170 / 170 65 / 65 Left Lower Lateral Abdomen 160 / 160 95 / 95 Right Anterior Medial Abdomen 2 / 2 5 / 5 Right Lower Lateral Abdomen 10 / 10 5 / 5 Other: Urine Appearance Clear Clear Clear Urine Color Dark Yellow Bright Yellow Yellow Stool Color Brown Brown Green Stool Consistency Watery Liquid Size of Bowel Movement Large Drain Type Left Anterior Medial Abdomen Bulb [place] Bulb [place] Left Lower Abdomen Bulb [place] Bulb [place] Left Lower Lateral Abdomen Bulb [place] Bulb [place] Right Anterior Medial Abdomen Bulb [place] Bulb [place] Right Lower Lateral Abdomen Bulb [place] Bulb [place] # Unmeasured Emesis Episodes 1 - Consult Information Formula was changed yesterday to custom with phosphate removed. Will continue to monitor. Thank you.
[2018-03-20] MEDS: PANTOPRAZOLE 40 MG INJECTION IVP SCH (09:14)
[2018-03-20] MEDS: ENOXAPARIN 40 MG/0.4 ML INJECTION SQ SCH (09:15)
[2018-03-20] MEDS: METOPROLOL 5mg/5ml INJECTION IVP SCH ×2 (09:18→22:22)
[2018-03-20] MEDS: SALINE FLUSH 10ml SYRINGE IVF PRN ×4 (09:19→15:22)
[2018-03-20] MEDS: METOCLOPRAMIDE 10mg/2ml INJECTION IVP PRN (10:23)
[2018-03-20] MEDS ORDERED: ALTEPLASE (Cathflo*) 2mg INJECTION IV ONE (13:39)
--- NOTE | 2018-03-20 14:50 | Progress Note ---
- Date 03/20/18 Subjective: The patient was seen this afternoon in his room accompanied by his parents. He has had a few bites of ice cream and has been drinking Sprite. He denies any pain anywhere. He denies shortness of breath. He is scheduled for a CT abdomen later this afternoon. Objective Vital signs: Temperature 99.9 F 03/20/18 11:40 Pulse Rate 123 H 03/20/18 12:00 Respiratory Rate 17 03/20/18 11:00 Blood Pressure 112/71 03/20/18 11:00 Pulse Oximetry 95 03/20/18 11:00 Rhythm: Sinus Tachycardia Height/Weight/BMI: Height 1.75 m Weight 60.7 kg Body Mass Index 22.5 Comments: MAXIMUM TEMPERATURE is 99.9. Heart rate 126. Blood pressure 109/62. O2 sat 98% on room air. Urine output has been good at 3088. Wound drainage total is 592-mostly on the left GEN-alert, no acute distress HEENT-sclera anicteric, pupils are equal NECK-supple CV-tachycardic rate with irregular rhythm CHEST-mild coarse breath sounds anteriorly ABD-soft, mild distention, positive bowel sounds, nontender, he has a large amount of air and some yellowish-brown liquid stool in his ostomy bag -urine output is good with light colored urine EXT-SCDs are on, no edema NEURO-no focal deficits, patient has autism SKIN-warm and dry Results - Labs CBC & Chem 7: 03/20/18 04:27 03/20/18 04:27 Labs: White count today is 18.8 up from 16 yesterday and 12 the day prior Neutrophils are 78. Bands are 1 down from 6. Phosphorus is 5.6. Magnesium 2.1. Microbiology Results: Microbiology 03/01/18 18:56 Abdomen, Left Upper Gram Stain - Final 03/01/18 18:56 Abdomen, Left Upper Surgical Culture - Final Escherichia coli Anaerobic Gram-Negative Bhanu Anaerobic Gram-Positive Cocci 02/23/18 20:15 Peripheral/Iv Start Gram Stain - Final Not performed 02/23/18 20:15 Peripheral/Iv Start Blood Culture - Final No Growth After 5 Days 02/23/18 20:05 Peripheral/Iv Start Gram Stain - Final Not performed 02/23/18 20:05 Peripheral/Iv Start Blood Culture - Final No Growth After 5 Days 02/20/18 20:07 Peripheral/Iv Start Blood Culture - Final No Growth After 5 Days Assessment and Plan (1) Megacolon Problem details: Toxic megacolon Current visit: Yes Status: Acute (2) Perforation of colon Problem details: Perforation of the splenic flexure due to ischemic changes Current visit: Yes Status: Acute Assessment and Plan: Assessment 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 He was also on meropenem, this was discontinued March 18 and Zosyn was initiated on March 18. Tachycardia -persistent during the hospital course Severe constipation-resolved Severe sepsis -resolved Fever Severe iron deficiency anemia -received IV iron 02/25/2018 and 03/04/2018. He has had a total of 6 units of blood, he received his last unit 03/17/2018 Autism Dental problems Hypophosphatemia-resolved Hyperphosphatemia-on TPN Hypermagnesemia-on TPN Hypokalemia (Not POA) -resolved XIOMARA-resolved LLL atelectasis Acute kidney injury with oliguria-postop -resolved Hyperkalemia (Not POA) -resolved Thrombocytosis (Not POA) Mild elevation of INR of 1.39 on 03/19/2018 Plan White blood cell count continues to increase and is 18.8 today from 16.8 yesterday. Bands are 1 down from 6 yesterday. Temperature currently is 99.9. Dr. Gomez has ordered CT abdomen with contrast. The patient is currently on day 4 of Zosyn. He has been on fluconazole since at least February 23. Meropenem was discontinued March 18. Continue TPN for now, he is on a customized formula. Continue ambulation with assist Recheck CBC with manual differential, renal panel, magnesium tomorrow. Discussed with the patient's nurse and family. DVT Prophylaxis: SCD's, Lovenox GI Prophylaxis: Protonix Resuscitation Status: Full Code - Physician Narrative Narrative: Date: 03/20/18 Time: 1447 Hospital Course Summary Disclaimer: The visit summary below is not to be considered part of the above Progress Note. Hospital Course: 02/20/18 Admit, CCU. Bowel rest - NPO. Cont IVF - 1/2 NS with Na of 144. Consult Dr. Gomez for mgt. Sx management with Protonix, morphine, Zofran. Cont IVF for tachycardia; sepsis. Repeat lactate. Cont Zosyn for bowel coverage. Follow BC results. Iron w/u in progress. Type & screen ordered. D/W with Dr. Stevens and RN. 02/22/18 Gastrografin enema 02/21 with copious stool resulting. However, still with stool in rectal vault. Deferring further management to surgery team, await recs. Cont Zosyn given bandemia, tachycardia and concern for toxic megacolon. 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 Clinically deteriorating. Going for surgery for perforation/free air. Near total colectomy performed. Became hypotensive, tachycardic with rates into 180s. Aggressively fluid resuscitated. 02/24/18 UOP, tachycardia improved. Cont abx. Initiate TPN. Monitoring for return of bowel fxn. 02/25/18 Given Kphos Transfused another 1U PRBCs. Stopped LR. Surgery to trial clamping NGT. Intermittently febrile- rectal Tylenol. 02/26/18 Did have fever overnight. Has tolerated NGT clamping. No O2 requirements. No N/V /CP. Hasn't been able to perform IS very well. 02/27/18 Remains on TPN, tolerating limited oral liquids earlier today however resultant emesis has required resumption of NG suction. Good output per ostomy; 2400 mL output reported during prior 24-hour period. Hemoglobin drifting down, ongoing hypokalemia-post being reassessed this afternoon. Potassium increased and TPN but may require supplemental boluses due to potassium lost in stool and emesis. Persistent tachycardia-may require additional blood transfusion. Remains on Zosyn for peritonitis; chest x-ray with pleural effusion but no evidence of pneumonia. May require repeat CT abdomen/pelvis to exclude intra-abdominal abscess. 02/28/18 Remains on TPN, electrolytes stable. Good urine output per ostomy but continues to have high volume output per NG. Output significantly higher than input, weight down, ongoing tachycardia--> 1 L fluid bolus tonight. Anticipate ongoing need for fluids to match fluid losses. CT abdomen/pelvis discussed with radiology this evening and subsequently with Dr. Hills; will review further with radiology tomorrow to determine if drainage can be performed of the subphrenic abscess percutaneously or if surgical drainage/washout will be needed due to presence of multiple smaller fluid collections suggestive of early abscesses. Dr. Hills notified patient 's parents of findings. Hemoglobin continues to drift down very slowly, may be slightly hemoconcentrated at present. Type and screen in a.m. Anticipating transfusion in the next 1-2 days. 03/01/18 OP Day - Exploratory laparotomy, drainage of multiple intraabdominal abscesses, fecal disimpaction, intraoperative flexible proctoscopy. Subdiaphragmatic abscess and left upper quadrant-discussed with radiology and message subsequently relayed to Dr. Hills regarding potential risk of percutaneous drainage. Patient tenably scheduled to return to the operating room later today. Several very small extensive gas in the pelvis without clear room enhancement to suggest abscess, may simply be postoperative change. Remains on TPN, electrolytes stable. Good urine output per ostomy but continues to have high volume output per NG. Output significantly higher than input, weight down, ongoing tachycardia--> 1 L fluid bolus this a.m. and continue normal saline at 100 mL per hour. 2 units PRBCs matched preoperatively; one being given prior to surgery for hemoglobin 7.4. 03/02/18 s/p ex lap with placement of drains by Dr. Hills. Febrile before surgery. WBC up post-op. Wound cx growing GPC, GNR, GPR. Continue Zosyn Remains on TPN, reduce K+. Good urine output. Output per NG down. Continued tachycardia. Continue IVF and treat pain. Output significantly higher than input, weight down, ongoing tachycardia--> 1 L fluid bolus this a.m. and continue normal saline at 100 mL per hour. Anticipate ongoing need for fluids to match fluid losses. 1 unit PRBCs given 03/01. Total of 4 units transfused Ferrlecit dose given 02/25, plan to repeat dose 03/04. Discussed with nursing who provide supplemental history; mother updated. Prognosis guarded. 03/03/18 s/p ex lap 03/01 with placement of drains by Dr. Hills. Afebrile and WBC down. Wound cx growing GPC, GNR, GPR. Continue Zosyn and fluconazole Continue TPN, K+ improved. Good urine output. Output per NG and ostomy down since 03/01 ex lap. Continued tachycardia. Continue IVF and treat pain. ? whether anxious. Trial of Ativan Anticipate ongoing need for fluids to match fluid losses. 1 unit PRBCs given 03/01. Total of 4 units transfused Ferrlecit dose given 02/25, plan to repeat dose 03/04. Discussed with nursing who provide supplemental history; mother updated. Prognosis guarded. 03/04/18 s/p ex lap 03/01 with placement of drains by Dr. Hills. Fever and WBC up slightly. Wound cx growing e coli, sensitive to Zosyn. Fluconazole. Check CXR Continue TPN, K+ improved. Good urine output. Output per NG and ostomy down since 03/01 ex lap. Continued tachycardia. Hold LR as patient with trace edema. Start fentanyl patch for pain. He got 28 mg iv morphine yesterday. Starting fentanyl at 12mcg d /t possible interaction with Fluconazole. 1 unit PRBCs given 03/01. Total of 4 units transfused Ferrlicit dose given 02/25, plan to repeat dose 03/04. Discussed with nursing who provide supplemental history. Encourage activity. Prognosis guarded 03/05/18 s/p ex lap 03/01 with placement of drains by Dr. Hills. Wound VAC. Fever. WBC down slightly. Wound cx growing e coli, sensitive to Zosyn. Fluconazole. Check CXR. Continue TPN, decrease Mg. Good urine output. Output per NG up yesterday. Continued tachycardia. Holding LR as patient with trace edema. Appears more comfortable with fentanyl patch for pain. Platelets trending up. Check inflammatory markers. If continued fever, consider repeating CT Encourage activity. 03/06/18 Temp elevations to 100.5 - 101.7. Persistent tachycardia in 130s. BP 100's. WBC with gradual trend down to 17.9 - was 25.0 on 03/02. Platelets trending up to 971 (was 407 on 03/02). Electrolytes and renal status stable - on TPN. Will continue with Zosyn and Diflucan for antimicrobial coverage. Continue with wound vac and drains. CT scan of ab/pelvis to exclude occult abscess formation. Encourage continued activities. 03/07/18 WBC with gradual trend down to 14.3 - was 17.9 on yesterday. Platelets elevated at 961 (was 971 yesterday). Hemoglobin persistently low at 7.6; with continued tachycardia will give 1 unit of pRBC. Electrolytes and renal status stable - on TPN. Will continue with Zosyn for antimicrobial coverage; Dr Gomez added Vancomycin and increased Diflucan to 200mg daily. Continue with wound vac and drains. CT scan of ab/pelvis showed possible new abscess formation in the suprapubic region and omental area. Encourage continued activities. 03/08/18 WBC with increase back to 17.1. HGB increased to 8.2 post transfusion yesterday. Pharm recommended changing Zosyn to Meropenem - did agree. Continue vancomycin and Diflucan. Will continue with TPN for nutritional support - NS bolus of 500cc to help with tachycardia. Continue with pain control. 03/09/18 Temp elevations continue. WBC with decrease to 15.6, but increased bands noted. Renal status and electrolytes stable. Continues of Meropenem, vancomycin, and Diflucan for coverage. Dr Gomez plan repeating CT scan with contrast (though NG) tomorrow to check for bowel function and further abscesses. TPN for nutritional and volume support. Continue with MS for pain, add Aspercreme for muscle discomfort. 03/10/18 Temp elevations continue. WBC 16.4. Renal status and electrolytes stable. Little change in overall status. CT ab/pelvis shown abscess with drain in place, however abscess has increased in size. Sx working to have drains flushed. Continues on Meropenem, vancomycin, and Diflucan for coverage. TPN for nutritional and volume support. Will give 500cc NS bolus to help improve BP. 03/11/18 Temp elevations continue. WBC trended down to 14. Renal status and electrolytes stable. Little change in overall status. CT ab/pelvis shown abscess with drain in place, however abscess has increased in size. Sx working to have drains flushed. Continues on Meropenem, vancomycin, and Diflucan for coverage. TPN for nutritional and volume support. Repeat 500cc NS bolus today and add metoprolol for tachycardia as BP allows. Continue pain control. 03/12/18 Temp elevations continue. WBC trended down to 12.7. Renal status and electrolytes stable. Little change in overall status. CT ab/pelvis shown abscess with drain in place, however abscess has increased in size per CT 03/10/18. Sx working to have drains flushed. Continues on Meropenem, vancomycin, and Diflucan for coverage. TPN for nutritional and volume support. Added q12hr metoprolol in attempt to control heart rate, only marginally working and could be titrated if blood pressure allows. Continue pain control. 03/13/18 WBC with trend down, but still with tachycardia and intermittent temp elevations. Continues on Meropenem, vancomycin, and Diflucan for coverage. TPN for nutritional and volume support. Continue pain control. 03/14/18 WBC with elevation to 13.4. CT showing decrease size of abscess. Continues on Meropenem, vancomycin, and Diflucan for coverage. TPN for nutritional and volume support. Electrolytes and renal status stable. Continue pain control. Continue activities as able. 03/15/18 WBC with stable at 13.7. Platelets with decrease to 594. Less temp elevations seen. Continues on Meropenem, vancomycin, and Diflucan for coverage. TPN for nutritional and volume support. Electrolytes and renal status stable. Dr Gomez trying NG clamping and clear liquids. Continue pain control. Continue activities as able. 03/16/18 WBC with decrease to 11.7. Platelets with decrease to 546. Less temp elevations seen. Continues on Meropenem, vancomycin, and Diflucan for coverage. TPN for nutritional and volume support. Electrolytes and renal status stable. NG removed; clear liquids. 03/17/18 WBC with decrease to 10.1. Platelets with decrease to 529. Less temp elevations seen. Evaluated by Dr Ac today - vancomycin stopped and changed meropenem to Zosyn and continued Diflucan. TPN for nutritional and volume support. Electrolytes and renal status stable. Advanced to regular diet but oral drive low. HGB variable, but trend down. Will give 1 unit pRBC due to continued tachycardia in post op patent. Continue pain control. Continue activities as able - walking in halls with nursing help. 03/18/2018 White blood cell count today is up mildly to 12.1. Bands are up to 7 from one yesterday. He has been afebrile over 24 hours. Hemoglobin improved to 9.5 up from 7.1 yesterday. He received 1 unit of blood yesterday. He does have mildly elevated phosphorus and magnesium. Discussed with pharmacy. The rate of his TPN will be decreased. Will recheck phosphorus and magnesium tomorrow. Repeat INR tomorrow. Repeat CBC and renal panel tomorrow. Advance diet as tolerated. Will try oral supplements. Continue ambulation with assist. The patient continues to have persistent tachycardia this hospital course, but rate is slowly improving. No real change with transfusion of 1 unit of blood. Recheck C-reactive protein tomorrow Discussed case with CCU nursing. We'll check a vitamin B-12 tomorrow regarding borderline low B-12 level Greater than 40 minutes of critical care time spent seeing and evaluating the patient in determining care plan. 03/19/2018 White blood cell count continues to increase and is 16.5 today. Bands are 6 down from 7 yesterday. Hemoglobin has improved to 10.9. Patient remains afebrile. C-reactive protein has decreased from 181 down to 75. We'll continue on fluconazole and Zosyn for intra-abdominal abscesses. Advance diet as tolerated. Continue TPN for now, he will receive a customized formula with no phosphorus and decreased magnesium and calcium. Continue ambulation with assist Recheck CBC with manual differential, renal panel, magnesium tomorrow.
[2018-03-20] MEDS ORDERED: SALINE FLUSH 10ml SYRINGE ONE (14:59)
[2018-03-20] MEDS ORDERED: IOHEXOL 300mg/ml 75ml INJECTION ONE (14:59)
[2018-03-20] MEDS: ONDANSETRON 4 MG/2 ML INJECTION IVP PRN (15:22)
[2018-03-20] MEDS: [UNRECOGNIZED DRUG - OTHER] IV SCH (15:32)
[2018-03-20] MEDS: SODIUM CHLORIDE IV SCH (15:32)
[2018-03-20] MEDS: POTASSIUM ACETATE IV SCH (15:32)
--- NOTE | 2018-03-20 16:29 | Wound Care Progress Note ---
Wound Center Progress Note: Pt seen for wound follow up/vac change. Pt resting in bed, no complaints of pain , parents at bedside. Colostomy pouch had moderate yellow green drainage. Pouching system intact with no leaks. Vac dressing intact, running at 125 mm Hg continuos pressure. Wound vac dressing removed from mid abdominal/chest incision. Wound bed: Improved, red granulating tissue. Pt has a small skin island on superior aspect of wound. Scant active sanguineous drainage during wound vac dressing change. Periwound: WDLN. New wound vac canister placed, old canister had around 450 mL of serosanguineous drainage. Wound vac drape placed around wound, black foam placed within wound bed, covered with vac drape. Black foam collapsed without leaks, running at 125 mm Hg continuous pressure. Pt tolerated procedure well without being premedicated. Continue to change wound vac per order, Tuesday and . Continue to monitor colostomy pouching system and change PRN. All of parents questions answered. Continue with colostomy education PRN.
[2018-03-20] MEDS: FAT EMULSION 20% 250 ML IV SCH (16:47)
[2018-03-20] MEDS: FLUCONAZOLE PB 200 MG/100 ML BAG IV SCH (16:53)
--- NOTE | 2018-03-20 18:06 | Progress Note ---
DATE 03/20/2018 FINDINGS Cosmo was seen this morning on rounds. He was without complaints. His parents were present this afternoon. OBJECTIVE VITALS: Afebrile. Normotensive. The patient remains tachycardic. Please refer to EMR. CHEST: Clear to auscultation bilaterally. HEART: Regular rate and rhythm. Normal S1, S2, without gallops, murmurs or clicks. ABDOMEN: Drains are present. There is still some minimal purulent material noted within the drains within the left upper quadrant. The abdomen was soft and nontender. LABORATORY/RADIOGRAPHIC EVALUATION Patient's white count unfortunately has increased to 18,000 today. Hemoglobin is stable at 10.3. Left shift with 81% neutrophils. Given his increasing leukocytosis, it was my recommendation that we go ahead and repeat a CT scan today. Results of this are pending. ASSESSMENT 32-year-old gentleman status post exploratory laparotomies x2 with near total colectomy and creation of end colostomy and Mendoza's pouch, drainage of multiple intraabdominal abscesses. Patient with increasing leukocytosis of uncertain etiology. PLAN CT scan of abdomen and pelvis. Continue with current care. Will await CT scan results and proceed accordingly. [facility]
[2018-03-21] MEDS: PIPERACILLIN/TAZOBACTAM 3.375 GM in D5W 100 ML IV SCH ×4 (00:20→18:01)
[2018-03-21] MEDS: MORPHINE SULFATE 4mg INJECTION IVP PRN ×2 (05:31→20:34)
--- NOTE | 2018-03-21 08:07 | CT Scan Report ---
Indication: f/u abscesses, increasing leukocytosis PROCEDURE: CT abdomen pelvis w con: Encounter: Initial Comparison: CT abdomen dated March 14, 2018 Technique: Axial CT images were performed through the abdomen and pelvis after the administration of intravenous contrast. Coronal and sagittal two-dimensional reformats. Automated Exposure Control and Iterative Reconstruction dose reducing techniques were utilized. Contrast: Omnipaque 300 74 mL Findings: Atelectasis in left lower lobe. Small to moderate left effusion is slightly smaller. The liver is stable in appearance. Drain again noted along the right aspect of the liver without surrounding fluid collection. The subdiaphragmatic area of abscess continues to decrease in size, now measuring 6.5 x 3.6 cm on axial image #15 compared to 9.2 x 5.4 cm with a few foci of gas present. The spleen, pancreas, adrenal glands and kidneys are stable. Dilated small bowel loops are redemonstrated throughout the abdomen. Bladder is thick-walled with a Mcdermott catheter in place in and a few foci of air within the lumen. Right pelvic surgical drain is stable in appearance. Drain along the left paracolic gutter shows significant decrease in surrounding abscess with only a small area of abscess seen on axial image #60 and coronal image 34. This measures 1.7 x 6.6 cm in size compared to 3 x 9.2 cm previously. The surgical drain in the peripancreatic region remains in place with interval decrease in size of that abscess cavity as well. Largest pocket of abscess measures 2.8 x 1.8 cm on coronal image #23 compared to 4.6 x 3 cm on the prior study. Thick-walled rectal J-pouch is again noted midline. Superficial abdominal wound with a right lower quadrant ostomy. Bone windows are stable. Impression: Continued improvement within the drained areas of intra-abdominal abscess as described and measured above. No evidence of new or worsening abscess. .
[2018-03-21] MEDS: ENOXAPARIN 40 MG/0.4 ML INJECTION SQ SCH (08:37)
[2018-03-21] MEDS: SALINE FLUSH 10ml SYRINGE IVF PRN ×2 (08:38→20:30)
[2018-03-21] MEDS: PANTOPRAZOLE 40 MG INJECTION IVP SCH (08:38)
--- NOTE | 2018-03-21 08:44 | Pharmacy Consult-TPN/PPN ---
Pharmacy Consult-TPN/PPN - Laboratory Information Chemistry Turbidity < 20 (0-20) 03/21/18 04:06 Sodium 140 MEQ/L (136-146) 03/21/18 04:06 Potassium 4.3 MEQ/L (3.6-5) 03/21/18 04:06 Chloride 103 MEQ/L (98-107) 03/21/18 04:06 Carbon Dioxide 27 MEQ/L (22-30) 03/21/18 04:06 Anion Gap 10 meq/L (5-15) 03/21/18 04:06 BUN 13.0 MG/DL (9-20) 03/21/18 04:06 Creatinine 0.6 mg/dL (0.8-1.5) L 03/21/18 04:06 GFR Calculation 158 03/21/18 04:06 BUN/Creatinine Ratio 22 RATIO (6-26) 03/21/18 04:06 Glucose 101 MG/DL (75-110) 03/21/18 04:06 Glucometer 113 mg/dL (65-110) 03/21/18 00:24 Calculated Osmolality 269 MOSM/KG (261-280) 03/21/18 04:06 Calcium 8.8 MG/DL (8.4-10.2) 03/21/18 04:06 Ionized Calcium [place] 1.11 MMOL/L (1.12-1.32) L 02/25/18 04:20 Phosphorus 5.0 MG/DL (2.5-4.5) H 03/21/18 04:06 Magnesium 2.1 MG/DL (1.6-2.3) 03/20/18 04:27 Iron 11 ug/dL (49-181) L 02/20/18 20:07 TIBC 342 ug/dL (261-497) 02/20/18 20:07 % Saturation 3 % (13-59) L 02/20/18 20:07 Ferritin 2.44 ng/mL (17-464) L 02/20/18 20:07 Total Bilirubin 0.70 MG/DL (0.20-1.30) 03/18/18 04:01 Icterus Index < 2 (0-7) 03/21/18 04:06 AST 26 U/L (17-59) 03/18/18 04:01 ALT 53 U/L (1-50) H 03/18/18 04:01 Alkaline Phosphatase 181 U/L (38-126) H 03/18/18 04:01 C-Reactive Protein 75.0 mg/L (0-9) H 03/19/18 04:29 Total Protein 6.1 g/dL (6.3-8.2) L 03/18/18 04:01 Albumin 3.5 g/dL (3.5-5.0) 03/19/18 04:29 Globulin 3.3 G/DL (2.4-3.6) 03/18/18 04:01 Albumin/Globulin Ratio 0.8 RATIO (1.1-2.2) L 03/18/18 04:01 Prealbumin 15.6 mg/dL (17.6-36.0) L 03/21/18 04:06 Lipase 21 U/L (23-300) L 02/20/18 15:25 Plasma Lactate 1.3 MMOL/L (0.6-2.2) 02/24/18 04:13 Vitamin B12 > 1000 pg/mL (239-931) H 03/19/18 04:29 Procalcitonin 0.08 NG/ML 03/21/18 04:06 Specimen Hemolysis < 15 (0-25) 03/21/18 04:06 - Consult Information TPN Consuult: Day 26 The TPN continue and I am not changing anything. The phosphorous is still elevated but has been going down. The Pharmacy will continue to monitor and adjust eh TPN as needed. Thanks, Gonzales Russell, Pharmacist.
--- NOTE | 2018-03-21 09:38 | Progress Note ---
- Date 03/21/18 Subjective: Arslan was seen this morning in his room. He is sitting up in a chair. Heart rate has gone up since he's been sitting. He states he feels good. He has no complaints. He denies any pain anywhere. He denies shortness of breath. He is more talkative and interactive this morning with me and with his nurse. He drank a carton of chocolate milk this morning without difficulties. Objective Vital signs: Temperature 97.9 F 03/21/18 01:00 Pulse Rate 141 H 03/21/18 08:00 Respiratory Rate 16 03/21/18 08:00 Blood Pressure 108/55 03/21/18 07:00 Pulse Oximetry 95 03/21/18 08:00 Rhythm: Sinus Tachycardia Height/Weight/BMI: Height 1.75 m Weight 59.6 kg Body Mass Index 22.5 Comments: I&O 6890/7861 Heart rate currently 135 with blood pressure 108/55 GEN-alert, no acute distress HEENT-oropharynx is moist NECK-supple CV-tachycardic rate with irregular rhythm CHEST-clear to auscultation bilaterally ABD-soft, nontender with positive bowel sounds. -Mcdermott in place with good urine output EXT-no edema, SCDs are on NEURO-no focal deficits, patient does have autism SKIN-warm and dry Results - Labs CBC & Chem 7: 03/21/18 04:06 03/21/18 04:06 Labs: Neutrophils are 68 down from 81, bands are 6. White count is 17.6 down from 18.1. Phosphorus is down to 5.0. Pro calcitonin 0.08. Prealbumin 15.6. Microbiology Results: Microbiology 03/01/18 18:56 Abdomen, Left Upper Gram Stain - Final 03/01/18 18:56 Abdomen, Left Upper Surgical Culture - Final Escherichia coli Anaerobic Gram-Negative Bhanu Anaerobic Gram-Positive Cocci 02/23/18 20:15 Peripheral/Iv Start Gram Stain - Final Not performed 02/23/18 20:15 Peripheral/Iv Start Blood Culture - Final No Growth After 5 Days 02/23/18 20:05 Peripheral/Iv Start Gram Stain - Final Not performed 02/23/18 20:05 Peripheral/Iv Start Blood Culture - Final No Growth After 5 Days 02/20/18 20:07 Peripheral/Iv Start Blood Culture - Final No Growth After 5 Days - Impressions CT abdomen pelvis with contrast Findings: Atelectasis in left lower lobe. Small to moderate left effusion is slightly smaller. The liver is stable in appearance. Drain again noted along the right aspect of the liver without surrounding fluid collection. The subdiaphragmatic area of abscess continues to decrease in size, now measuring 6.5 x 3.6 cm on axial image #15 compared to 9.2 x 5.4 cm with a few foci of gas present. The spleen, pancreas, adrenal glands and kidneys are stable. Dilated small bowel loops are redemonstrated throughout the abdomen. Bladder is thick-walled with a Mcdermott catheter in place in and a few foci of air within the lumen. Right pelvic surgical drain is stable in appearance. Drain along the left paracolic gutter shows significant decrease in surrounding abscess with only a small area of abscess seen on axial image #60 and coronal image 34. This measures 1.7 x 6.6 cm in size compared to 3 x 9.2 cm previously. The surgical drain in the peripancreatic region remains in place with interval decrease in size of that abscess cavity as well. Largest pocket of abscess measures 2.8 x 1.8 cm on coronal image #23 compared to 4.6 x 3 cm on the prior study. Thick-walled rectal J-pouch is again noted midline. Superficial abdominal wound with a right lower quadrant ostomy. Bone windows are stable. Impression: Continued improvement within the drained areas of intra-abdominal abscess as described and measured above. No evidence of new or worsening abscess. 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 He was also on meropenem, this was discontinued March 18 and Zosyn was initiated on March 18. Tachycardia -persistent during the hospital course Severe constipation-resolved Severe sepsis -resolved Fever Severe iron deficiency anemia -received IV iron 02/25/2018 and 03/04/2018. He has had a total of 6 units of blood, he received his last unit 03/17/2018 Autism Dental problems Hypophosphatemia-resolved Hyperphosphatemia-on TPN Hypermagnesemia-on TPN Hypokalemia (Not POA) -resolved XIOMARA-resolved LLL atelectasis Acute kidney injury with oliguria-postop -resolved Hyperkalemia (Not POA) -resolved Thrombocytosis (Not POA) Mild elevation of INR of 1.39 on 03/19/[address] abdomen with contrast obtained yesterday and shows a decrease in size of the intra-abdominal abscesses with no new abscess formation. White count is essentially stable from yesterday. The patient remains afebrile. He continues on fluconazole which was started February 23 and Zosyn which was started March 17. Prior to being on Zosyn, he was on meropenem but this was discontinued March 18 He continues to have tachycardia, but urine output remains stable. Fluid boluses in the past have not improved tachycardia. He does not appear to be in pain or anxious at this time. He is on fentanyl patch for pain and has when necessary medication for pain and anxiety. Will check TSH and reflex T4. Phosphorus is trending down with customized TPN We'll check CBC, CMP, magnesium, phosphorus, and C-reactive protein tomorrow. DVT Prophylaxis: Lovenox GI Prophylaxis: Protonix Resuscitation Status: Full Code - Physician Narrative Narrative: Date: 03/21/18 Time: 0934 Hospital Course Summary Disclaimer: The visit summary below is not to be considered part of the above Progress Note. Hospital Course: 02/20/18 Admit, CCU. Bowel rest - NPO. Cont IVF - 1/2 NS with Na of 144. Consult Dr. Gomez for mgt. Sx management with Protonix, morphine, Zofran. Cont IVF for tachycardia; sepsis. Repeat lactate. Cont Zosyn for bowel coverage. Follow BC results. Iron w/u in progress. Type & screen ordered. D/W with Dr. Stevens and RN. 02/22/18 Gastrografin enema 02/21 with copious stool resulting. However, still with stool in rectal vault. Deferring further management to surgery team, await recs. Cont Zosyn given bandemia, tachycardia and concern for toxic megacolon. 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 Clinically deteriorating. Going for surgery for perforation/free air. Near total colectomy performed. Became hypotensive, tachycardic with rates into 180s. Aggressively fluid resuscitated. 02/24/18 UOP, tachycardia improved. Cont abx. Initiate TPN. Monitoring for return of bowel fxn. 02/25/18 Given Kphos Transfused another 1U PRBCs. Stopped LR. Surgery to trial clamping NGT. Intermittently febrile- rectal Tylenol. 02/26/18 Did have fever overnight. Has tolerated NGT clamping. No O2 requirements. No N/V /CP. Hasn't been able to perform IS very well. 02/27/18 Remains on TPN, tolerating limited oral liquids earlier today however resultant emesis has required resumption of NG suction. Good output per ostomy; 2400 mL output reported during prior 24-hour period. Hemoglobin drifting down, ongoing hypokalemia-post being reassessed this afternoon. Potassium increased and TPN but may require supplemental boluses due to potassium lost in stool and emesis. Persistent tachycardia-may require additional blood transfusion. Remains on Zosyn for peritonitis; chest x-ray with pleural effusion but no evidence of pneumonia. May require repeat CT abdomen/pelvis to exclude intra-abdominal abscess. 02/28/18 Remains on TPN, electrolytes stable. Good urine output per ostomy but continues to have high volume output per NG. Output significantly higher than input, weight down, ongoing tachycardia--> 1 L fluid bolus tonight. Anticipate ongoing need for fluids to match fluid losses. CT abdomen/pelvis discussed with radiology this evening and subsequently with Dr. Hills; will review further with radiology tomorrow to determine if drainage can be performed of the subphrenic abscess percutaneously or if surgical drainage/washout will be needed due to presence of multiple smaller fluid collections suggestive of early abscesses. Dr. Hills notified patient 's parents of findings. Hemoglobin continues to drift down very slowly, may be slightly hemoconcentrated at present. Type and screen in a.m. Anticipating transfusion in the next 1-2 days. 03/01/18 OP Day - Exploratory laparotomy, drainage of multiple intraabdominal abscesses, fecal disimpaction, intraoperative flexible proctoscopy. Subdiaphragmatic abscess and left upper quadrant-discussed with radiology and message subsequently relayed to Dr. Hills regarding potential risk of percutaneous drainage. Patient tenably scheduled to return to the operating room later today. Several very small extensive gas in the pelvis without clear room enhancement to suggest abscess, may simply be postoperative change. Remains on TPN, electrolytes stable. Good urine output per ostomy but continues to have high volume output per NG. Output significantly higher than input, weight down, ongoing tachycardia--> 1 L fluid bolus this a.m. and continue normal saline at 100 mL per hour. 2 units PRBCs matched preoperatively; one being given prior to surgery for hemoglobin 7.4. 03/02/18 s/p ex lap with placement of drains by Dr. Hills. Febrile before surgery. WBC up post-op. Wound cx growing GPC, GNR, GPR. Continue Zosyn Remains on TPN, reduce K+. Good urine output. Output per NG down. Continued tachycardia. Continue IVF and treat pain. Output significantly higher than input, weight down, ongoing tachycardia--> 1 L fluid bolus this a.m. and continue normal saline at 100 mL per hour. Anticipate ongoing need for fluids to match fluid losses. 1 unit PRBCs given 03/01. Total of 4 units transfused Ferrlecit dose given 02/25, plan to repeat dose 03/04. Discussed with nursing who provide supplemental history; mother updated. Prognosis guarded. 03/03/18 s/p ex lap 03/01 with placement of drains by Dr. Hills. Afebrile and WBC down. Wound cx growing GPC, GNR, GPR. Continue Zosyn and fluconazole Continue TPN, K+ improved. Good urine output. Output per NG and ostomy down since 03/01 ex lap. Continued tachycardia. Continue IVF and treat pain. ? whether anxious. Trial of Ativan Anticipate ongoing need for fluids to match fluid losses. 1 unit PRBCs given 03/01. Total of 4 units transfused Ferrlecit dose given 02/25, plan to repeat dose 03/04. Discussed with nursing who provide supplemental history; mother updated. Prognosis guarded. 03/04/18 s/p ex lap 03/01 with placement of drains by Dr. Hills. Fever and WBC up slightly. Wound cx growing e coli, sensitive to Zosyn. Fluconazole. Check CXR Continue TPN, K+ improved. Good urine output. Output per NG and ostomy down since 03/01 ex lap. Continued tachycardia. Hold LR as patient with trace edema. Start fentanyl patch for pain. He got 28 mg iv morphine yesterday. Starting fentanyl at 12mcg d /t possible interaction with Fluconazole. 1 unit PRBCs given 03/01. Total of 4 units transfused Ferrlicit dose given 02/25, plan to repeat dose 03/04. Discussed with nursing who provide supplemental history. Encourage activity. Prognosis guarded 03/05/18 s/p ex lap 03/01 with placement of drains by Dr. Hills. Wound VAC. Fever. WBC down slightly. Wound cx growing e coli, sensitive to Zosyn. Fluconazole. Check CXR. Continue TPN, decrease Mg. Good urine output. Output per NG up yesterday. Continued tachycardia. Holding LR as patient with trace edema. Appears more comfortable with fentanyl patch for pain. Platelets trending up. Check inflammatory markers. If continued fever, consider repeating CT Encourage activity. 03/06/18 Temp elevations to 100.5 - 101.7. Persistent tachycardia in 130s. BP 100's. WBC with gradual trend down to 17.9 - was 25.0 on 03/02. Platelets trending up to 971 (was 407 on 03/02). Electrolytes and renal status stable - on TPN. Will continue with Zosyn and Diflucan for antimicrobial coverage. Continue with wound vac and drains. CT scan of ab/pelvis to exclude occult abscess formation. Encourage continued activities. 03/07/18 WBC with gradual trend down to 14.3 - was 17.9 on yesterday. Platelets elevated at 961 (was 971 yesterday). Hemoglobin persistently low at 7.6; with continued tachycardia will give 1 unit of pRBC. Electrolytes and renal status stable - on TPN. Will continue with Zosyn for antimicrobial coverage; Dr Gomez added Vancomycin and increased Diflucan to 200mg daily. Continue with wound vac and drains. CT scan of ab/pelvis showed possible new abscess formation in the suprapubic region and omental area. Encourage continued activities. 03/08/18 WBC with increase back to 17.1. HGB increased to 8.2 post transfusion yesterday. Pharm recommended changing Zosyn to Meropenem - did agree. Continue vancomycin and Diflucan. Will continue with TPN for nutritional support - NS bolus of 500cc to help with tachycardia. Continue with pain control. 03/09/18 Temp elevations continue. WBC with decrease to 15.6, but increased bands noted. Renal status and electrolytes stable. Continues of Meropenem, vancomycin, and Diflucan for coverage. Dr Gomez plan repeating CT scan with contrast (though NG) tomorrow to check for bowel function and further abscesses. TPN for nutritional and volume support. Continue with MS for pain, add Aspercreme for muscle discomfort. 03/10/18 Temp elevations continue. WBC 16.4. Renal status and electrolytes stable. Little change in overall status. CT ab/pelvis shown abscess with drain in place, however abscess has increased in size. Sx working to have drains flushed. Continues on Meropenem, vancomycin, and Diflucan for coverage. TPN for nutritional and volume support. Will give 500cc NS bolus to help improve BP. 03/11/18 Temp elevations continue. WBC trended down to 14. Renal status and electrolytes stable. Little change in overall status. CT ab/pelvis shown abscess with drain in place, however abscess has increased in size. Sx working to have drains flushed. Continues on Meropenem, vancomycin, and Diflucan for coverage. TPN for nutritional and volume support. Repeat 500cc NS bolus today and add metoprolol for tachycardia as BP allows. Continue pain control. 03/12/18 Temp elevations continue. WBC trended down to 12.7. Renal status and electrolytes stable. Little change in overall status. CT ab/pelvis shown abscess with drain in place, however abscess has increased in size per CT 03/10/18. Sx working to have drains flushed. Continues on Meropenem, vancomycin, and Diflucan for coverage. TPN for nutritional and volume support. Added q12hr metoprolol in attempt to control heart rate, only marginally working and could be titrated if blood pressure allows. Continue pain control. 03/13/18 WBC with trend down, but still with tachycardia and intermittent temp elevations. Continues on Meropenem, vancomycin, and Diflucan for coverage. TPN for nutritional and volume support. Continue pain control. 03/14/18 WBC with elevation to 13.4. CT showing decrease size of abscess. Continues on Meropenem, vancomycin, and Diflucan for coverage. TPN for nutritional and volume support. Electrolytes and renal status stable. Continue pain control. Continue activities as able. 03/15/18 WBC with stable at 13.7. Platelets with decrease to 594. Less temp elevations seen. Continues on Meropenem, vancomycin, and Diflucan for coverage. TPN for nutritional and volume support. Electrolytes and renal status stable. Dr Gomez trying NG clamping and clear liquids. Continue pain control. Continue activities as able. 03/16/18 WBC with decrease to 11.7. Platelets with decrease to 546. Less temp elevations seen. Continues on Meropenem, vancomycin, and Diflucan for coverage. TPN for nutritional and volume support. Electrolytes and renal status stable. NG removed; clear liquids. 03/17/18 WBC with decrease to 10.1. Platelets with decrease to 529. Less temp elevations seen. Evaluated by Dr Ac today - vancomycin stopped and changed meropenem to Zosyn and continued Diflucan. TPN for nutritional and volume support. Electrolytes and renal status stable. Advanced to regular diet but oral drive low. HGB variable, but trend down. Will give 1 unit pRBC due to continued tachycardia in post op patent. Continue pain control. Continue activities as able - walking in halls with nursing help. 03/18/2018 White blood cell count today is up mildly to 12.1. Bands are up to 7 from one yesterday. He has been afebrile over 24 hours. Hemoglobin improved to 9.5 up from 7.1 yesterday. He received 1 unit of blood yesterday. He does have mildly elevated phosphorus and magnesium. Discussed with pharmacy. The rate of his TPN will be decreased. Will recheck phosphorus and magnesium tomorrow. Repeat INR tomorrow. Repeat CBC and renal panel tomorrow. Advance diet as tolerated. Will try oral supplements. Continue ambulation with assist. The patient continues to have persistent tachycardia this hospital course, but rate is slowly improving. No real change with transfusion of 1 unit of blood. Recheck C-reactive protein tomorrow Discussed case with CCU nursing. We'll check a vitamin B-12 tomorrow regarding borderline low B-12 level Greater than 40 minutes of critical care time spent seeing and evaluating the patient in determining care plan. 03/19/2018 White blood cell count continues to increase and is 16.5 today. Bands are 6 down from 7 yesterday. Hemoglobin has improved to 10.9. Patient remains afebrile. C-reactive protein has decreased from 181 down to 75. We'll continue on fluconazole and Zosyn for intra-abdominal abscesses. Advance diet as tolerated. Continue TPN for now, he will receive a customized formula with no phosphorus and decreased magnesium and calcium. Continue ambulation with assist Recheck CBC with manual differential, renal panel, magnesium tomorrow. 03/20/2018 White blood cell count continues to increase and is 18.8 today from 16.8 yesterday. Bands are 1 down from 6 yesterday. Temperature currently is 99.9. Dr. Gomez has ordered CT abdomen with contrast. The patient is currently on day 4 of Zosyn. He has been on fluconazole since at least February 23. Meropenem was discontinued March 18. Continue TPN for now, he is on a customized formula. Continue ambulation with assist Recheck CBC with manual differential, renal panel, magnesium tomorrow. Discussed with the patient's nurse and family.
[2018-03-21] MEDS: SODIUM CHLORIDE IV SCH (15:57)
[2018-03-21] MEDS: [UNRECOGNIZED DRUG - OTHER] IV SCH (15:57)
[2018-03-21] MEDS: POTASSIUM ACETATE IV SCH (15:57)
[2018-03-21] MEDS: FAT EMULSION 20% 250 ML IV SCH (15:57)
[2018-03-21] MEDS: FLUCONAZOLE PB 200 MG/100 ML BAG IV SCH (17:02)
[2018-03-22] MEDS: PIPERACILLIN/TAZOBACTAM 3.375 GM in D5W 100 ML IV SCH ×5 (00:07→23:57)
[2018-03-22] MEDS: SALINE FLUSH 10ml SYRINGE IVF PRN ×2 (04:18→08:52)
[2018-03-22] MEDS: NS FLUSH BAG 500ml IV PRN (06:01)
[2018-03-22] MEDS: PANTOPRAZOLE 40 MG INJECTION IVP SCH (08:53)
[2018-03-22] MEDS: ENOXAPARIN 40 MG/0.4 ML INJECTION SQ SCH (08:53)
--- NOTE | 2018-03-22 09:20 | Progress Note ---
DATE 03/21/2018 FINDINGS Mr. Albright was seen earlier today on rounds. He was eating some sherbet this morning. Parents were present. OBJECTIVE VITALS: Afebrile. Normotensive. He remains slightly tachycardic. ABDOMEN: Soft, nontender. No significant drainage noted within CLIFTON bulbs. Nurses continue to flush CLIFTON as ordered. LABORATORY/RADIOGRAPHIC EVALUATION Patient had a CBC today and his white count overall is stable at 17,000. Hemoglobin is stable at 9.6. BMP obtained and found to be without marked abnormalities. ASSESSMENT 32-year-old gentleman status post exploratory laparotomies x2 with lysis of adhesions and drainage of multiple intraabdominal abscesses. Patient making ongoing improvement. PLAN I did review the CT scan obtained yesterday as a result of his increasing leukocytosis. Fortunately the abscesses continue to improve and are decreased in size. Overall patient continues to make slow improvement. ID consult has been obtained and the patient is on diflucan and Zosyn. Will continue with ongoing broad-spectrum antibiotic coverage. Continue to flush drains. Continue to advance diet as tolerated. At next wound VAC change, will try to evaluate his midline wound. If one does see good granulation tissue forming within the wound bed, one may be able to perform a delayed primary closure of his incision. Overall I am pleased with the patient's progress at this time. [facility]
--- NOTE | 2018-03-22 10:07 | Progress Note ---
- Date 03/22/18 Subjective: The patient is seen in CCU sitting up in the recliner. He already walked in the halls today. He says he wants to get back in bed. He states he had oatmeal and chocolate milk for breakfast. He states his stomach is a little upset after eating. He denies pain elsewhere. Objective Vital signs: Temperature 98.3 F 03/22/18 08:00 Pulse Rate 125 H 03/22/18 09:17 Respiratory Rate 8 L 03/22/18 09:00 Blood Pressure 108/69 03/22/18 08:00 Pulse Oximetry 96 03/22/18 09:00 Rhythm: Sinus Tachycardia Height/Weight/BMI: Height 1.75 m Weight 60.8 kg Body Mass Index 22.5 Comments: Afebrile, heart rate 125, blood pressure 108/69, O2 sat 96% I&O yesterday 4025/2989 Urine output 2215 Abdominal drain output yesterday 224 GEN-alert, no acute distress HEENT-sclera anicteric, oropharynx is moist NECK-supple CV-tachycardic rate with irregular rhythm CHEST-clear to auscultation bilaterally ABD-soft, nontender, positive bowel sounds. Drains in placed, being flushed, ostomy has yellowish- brown stool and air -Mcdermott in place with good urine output EXT-no edema NEURO-no focal deficits, patient has autism SKIN-warm and dry Results - Labs CBC & Chem 7: 03/22/18 04:18 03/22/18 04:18 Labs: White count is 13.7 down from 17. Bands are 0. Neutrophils 84. C-reactive protein is 62 down from 75 a few days ago and down from 181 prior. Phosphorus is 5.3 up from 5.0. Magnesium 2.0. Calcium 8.8 Microbiology Results: Microbiology 03/01/18 18:56 Abdomen, Left Upper Gram Stain - Final 03/01/18 18:56 Abdomen, Left Upper Surgical Culture - Final Escherichia coli Anaerobic Gram-Negative Bhanu Anaerobic Gram-Positive Cocci 02/23/18 20:15 Peripheral/Iv Start Gram Stain - Final Not performed 02/23/18 20:15 Peripheral/Iv Start Blood Culture - Final No Growth After 5 Days 02/23/18 20:05 Peripheral/Iv Start Gram Stain - Final Not performed 02/23/18 20:05 Peripheral/Iv Start Blood Culture - Final No Growth After 5 Days 02/20/18 20:07 Peripheral/Iv Start Blood Culture - Final No Growth After 5 Days Assessment and Plan (1) Megacolon Problem details: Toxic megacolon Current visit: Yes Status: Acute (2) Perforation of colon Problem details: Perforation of the splenic flexure due to ischemic changes Current visit: Yes Status: Acute Assessment and Plan: Assessment 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 He was also on meropenem, this was discontinued March 18 and Zosyn was initiated on March 18. Tachycardia -persistent during the hospital course Severe constipation-resolved Severe sepsis -resolved Fever Severe iron deficiency anemia -received IV iron 02/25/2018 and 03/04/2018. He has had a total of 6 units of blood, he received his last unit 03/17/2018 Autism Dental problems Hypophosphatemia-resolved Hyperphosphatemia-on TPN Hypermagnesemia-on TPN-resolved Hypokalemia (Not POA) -resolved LLL atelectasis Acute kidney injury with oliguria-postop -resolved Hyperkalemia (Not POA) -resolved Thrombocytosis (Not POA) Mild elevation of INR of 1.39 on 03/19/2018 Plan Overall, the patient seems to be improving gradually. CT abdomen yesterday showed decrease in size of the intra-abdominal abscesses with no new abscess formation. C-reactive protein continues to decrease. He is tolerating small amounts of food and liquid orally. Ostomy is functioning well. He has had no vomiting overnight or today. He continues to walk well in the halls with assist. Pain appears to be well controlled. He continues to have a persistent tachycardia, but urine output remains normal. Fluid boluses in the past have not improved tachycardia. TSH was normal. He does not appear to be anxious or in pain. Continue with customized TPN for malnutrition. Check renal panel, CBC with differential tomorrow. Continue fluconazole and Zosyn. Dr. Ac, infectious disease physician saw the patient last Tuesday. She is on vacation this week. I believe she will return this coming Tuesday. Dr. Saurabh Steven, is taking calls for infectious disease questions while she is on vacation. Dr. Gomez's note from yesterday reviewed. Discussed today with the patient's nurse. The patient has become progressively more interactive and talkative with his nurses during his hospital course. DVT Prophylaxis: SCD's, Lovenox GI Prophylaxis: Protonix Resuscitation Status: Full Code - Physician Narrative Narrative: Date: 03/22/18 Time: 1004 Hospital Course Summary Disclaimer: The visit summary below is not to be considered part of the above Progress Note. Hospital Course: 02/20/18 Admit, CCU. Bowel rest - NPO. Cont IVF - 1/2 NS with Na of 144. Consult Dr. Gomez for mgt. Sx management with Protonix, morphine, Zofran. Cont IVF for tachycardia; sepsis. Repeat lactate. Cont Zosyn for bowel coverage. Follow BC results. Iron w/u in progress. Type & screen ordered. D/W with Dr. Stevens and RN. 02/22/18 Gastrografin enema 02/21 with copious stool resulting. However, still with stool in rectal vault. Deferring further management to surgery team, await recs. Cont Zosyn given bandemia, tachycardia and concern for toxic megacolon. 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 Clinically deteriorating. Going for surgery for perforation/free air. Near total colectomy performed. Became hypotensive, tachycardic with rates into 180s. Aggressively fluid resuscitated. 02/24/18 UOP, tachycardia improved. Cont abx. Initiate TPN. Monitoring for return of bowel fxn. 02/25/18 Given Kphos Transfused another 1U PRBCs. Stopped LR. Surgery to trial clamping NGT. Intermittently febrile- rectal Tylenol. 02/26/18 Did have fever overnight. Has tolerated NGT clamping. No O2 requirements. No N/V /CP. Hasn't been able to perform IS very well. 02/27/18 Remains on TPN, tolerating limited oral liquids earlier today however resultant emesis has required resumption of NG suction. Good output per ostomy; 2400 mL output reported during prior 24-hour period. Hemoglobin drifting down, ongoing hypokalemia-post being reassessed this afternoon. Potassium increased and TPN but may require supplemental boluses due to potassium lost in stool and emesis. Persistent tachycardia-may require additional blood transfusion. Remains on Zosyn for peritonitis; chest x-ray with pleural effusion but no evidence of pneumonia. May require repeat CT abdomen/pelvis to exclude intra-abdominal abscess. 02/28/18 Remains on TPN, electrolytes stable. Good urine output per ostomy but continues to have high volume output per NG. Output significantly higher than input, weight down, ongoing tachycardia--> 1 L fluid bolus tonight. Anticipate ongoing need for fluids to match fluid losses. CT abdomen/pelvis discussed with radiology this evening and subsequently with Dr. Hills; will review further with radiology tomorrow to determine if drainage can be performed of the subphrenic abscess percutaneously or if surgical drainage/washout will be needed due to presence of multiple smaller fluid collections suggestive of early abscesses. Dr. Hills notified patient 's parents of findings. Hemoglobin continues to drift down very slowly, may be slightly hemoconcentrated at present. Type and screen in a.m. Anticipating transfusion in the next 1-2 days. 03/01/18 OP Day - Exploratory laparotomy, drainage of multiple intraabdominal abscesses, fecal disimpaction, intraoperative flexible proctoscopy. Subdiaphragmatic abscess and left upper quadrant-discussed with radiology and message subsequently relayed to Dr. Hills regarding potential risk of percutaneous drainage. Patient tenably scheduled to return to the operating room later today. Several very small extensive gas in the pelvis without clear room enhancement to suggest abscess, may simply be postoperative change. Remains on TPN, electrolytes stable. Good urine output per ostomy but continues to have high volume output per NG. Output significantly higher than input, weight down, ongoing tachycardia--> 1 L fluid bolus this a.m. and continue normal saline at 100 mL per hour. 2 units PRBCs matched preoperatively; one being given prior to surgery for hemoglobin 7.4. 03/02/18 s/p ex lap with placement of drains by Dr. Hills. Febrile before surgery. WBC up post-op. Wound cx growing GPC, GNR, GPR. Continue Zosyn Remains on TPN, reduce K+. Good urine output. Output per NG down. Continued tachycardia. Continue IVF and treat pain. Output significantly higher than input, weight down, ongoing tachycardia--> 1 L fluid bolus this a.m. and continue normal saline at 100 mL per hour. Anticipate ongoing need for fluids to match fluid losses. 1 unit PRBCs given 03/01. Total of 4 units transfused Ferrlecit dose given 02/25, plan to repeat dose 03/04. Discussed with nursing who provide supplemental history; mother updated. Prognosis guarded. 03/03/18 s/p ex lap 03/01 with placement of drains by Dr. Hills. Afebrile and WBC down. Wound cx growing GPC, GNR, GPR. Continue Zosyn and fluconazole Continue TPN, K+ improved. Good urine output. Output per NG and ostomy down since 03/01 ex lap. Continued tachycardia. Continue IVF and treat pain. ? whether anxious. Trial of Ativan Anticipate ongoing need for fluids to match fluid losses. 1 unit PRBCs given 03/01. Total of 4 units transfused Ferrlecit dose given 02/25, plan to repeat dose 03/04. Discussed with nursing who provide supplemental history; mother updated. Prognosis guarded. 03/04/18 s/p ex lap 03/01 with placement of drains by Dr. Hills. Fever and WBC up slightly. Wound cx growing e coli, sensitive to Zosyn. Fluconazole. Check CXR Continue TPN, K+ improved. Good urine output. Output per NG and ostomy down since 03/01 ex lap. Continued tachycardia. Hold LR as patient with trace edema. Start fentanyl patch for pain. He got 28 mg iv morphine yesterday. Starting fentanyl at 12mcg d /t possible interaction with Fluconazole. 1 unit PRBCs given 03/01. Total of 4 units transfused Ferrlicit dose given 02/25, plan to repeat dose 03/04. Discussed with nursing who provide supplemental history. Encourage activity. Prognosis guarded 03/05/18 s/p ex lap 03/01 with placement of drains by Dr. Hills. Wound VAC. Fever. WBC down slightly. Wound cx growing e coli, sensitive to Zosyn. Fluconazole. Check CXR. Continue TPN, decrease Mg. Good urine output. Output per NG up yesterday. Continued tachycardia. Holding LR as patient with trace edema. Appears more comfortable with fentanyl patch for pain. Platelets trending up. Check inflammatory markers. If continued fever, consider repeating CT Encourage activity. 03/06/18 Temp elevations to 100.5 - 101.7. Persistent tachycardia in 130s. BP 100's. WBC with gradual trend down to 17.9 - was 25.0 on 03/02. Platelets trending up to 971 (was 407 on 03/02). Electrolytes and renal status stable - on TPN. Will continue with Zosyn and Diflucan for antimicrobial coverage. Continue with wound vac and drains. CT scan of ab/pelvis to exclude occult abscess formation. Encourage continued activities. 03/07/18 WBC with gradual trend down to 14.3 - was 17.9 on yesterday. Platelets elevated at 961 (was 971 yesterday). Hemoglobin persistently low at 7.6; with continued tachycardia will give 1 unit of pRBC. Electrolytes and renal status stable - on TPN. Will continue with Zosyn for antimicrobial coverage; Dr Gomez added Vancomycin and increased Diflucan to 200mg daily. Continue with wound vac and drains. CT scan of ab/pelvis showed possible new abscess formation in the suprapubic region and omental area. Encourage continued activities. 03/08/18 WBC with increase back to 17.1. HGB increased to 8.2 post transfusion yesterday. Pharm recommended changing Zosyn to Meropenem - did agree. Continue vancomycin and Diflucan. Will continue with TPN for nutritional support - NS bolus of 500cc to help with tachycardia. Continue with pain control. 03/09/18 Temp elevations continue. WBC with decrease to 15.6, but increased bands noted. Renal status and electrolytes stable. Continues of Meropenem, vancomycin, and Diflucan for coverage. Dr Gomez plan repeating CT scan with contrast (though NG) tomorrow to check for bowel function and further abscesses. TPN for nutritional and volume support. Continue with MS for pain, add Aspercreme for muscle discomfort. 03/10/18 Temp elevations continue. WBC 16.4. Renal status and electrolytes stable. Little change in overall status. CT ab/pelvis shown abscess with drain in place, however abscess has increased in size. Sx working to have drains flushed. Continues on Meropenem, vancomycin, and Diflucan for coverage. TPN for nutritional and volume support. Will give 500cc NS bolus to help improve BP. 03/11/18 Temp elevations continue. WBC trended down to 14. Renal status and electrolytes stable. Little change in overall status. CT ab/pelvis shown abscess with drain in place, however abscess has increased in size. Sx working to have drains flushed. Continues on Meropenem, vancomycin, and Diflucan for coverage. TPN for nutritional and volume support. Repeat 500cc NS bolus today and add metoprolol for tachycardia as BP allows. Continue pain control. 03/12/18 Temp elevations continue. WBC trended down to 12.7. Renal status and electrolytes stable. Little change in overall status. CT ab/pelvis shown abscess with drain in place, however abscess has increased in size per CT 03/10/18. Sx working to have drains flushed. Continues on Meropenem, vancomycin, and Diflucan for coverage. TPN for nutritional and volume support. Added q12hr metoprolol in attempt to control heart rate, only marginally working and could be titrated if blood pressure allows. Continue pain control. 03/13/18 WBC with trend down, but still with tachycardia and intermittent temp elevations. Continues on Meropenem, vancomycin, and Diflucan for coverage. TPN for nutritional and volume support. Continue pain control. 03/14/18 WBC with elevation to 13.4. CT showing decrease size of abscess. Continues on Meropenem, vancomycin, and Diflucan for coverage. TPN for nutritional and volume support. Electrolytes and renal status stable. Continue pain control. Continue activities as able. 03/15/18 WBC with stable at 13.7. Platelets with decrease to 594. Less temp elevations seen. Continues on Meropenem, vancomycin, and Diflucan for coverage. TPN for nutritional and volume support. Electrolytes and renal status stable. Dr Gomez trying NG clamping and clear liquids. Continue pain control. Continue activities as able. 03/16/18 WBC with decrease to 11.7. Platelets with decrease to 546. Less temp elevations seen. Continues on Meropenem, vancomycin, and Diflucan for coverage. TPN for nutritional and volume support. Electrolytes and renal status stable. NG removed; clear liquids. 03/17/18 WBC with decrease to 10.1. Platelets with decrease to 529. Less temp elevations seen. Evaluated by Dr Ac today - vancomycin stopped and changed meropenem to Zosyn and continued Diflucan. TPN for nutritional and volume support. Electrolytes and renal status stable. Advanced to regular diet but oral drive low. HGB variable, but trend down. Will give 1 unit pRBC due to continued tachycardia in post op patent. Continue pain control. Continue activities as able - walking in halls with nursing help. 03/18/2018 White blood cell count today is up mildly to 12.1. Bands are up to 7 from one yesterday. He has been afebrile over 24 hours. Hemoglobin improved to 9.5 up from 7.1 yesterday. He received 1 unit of blood yesterday. He does have mildly elevated phosphorus and magnesium. Discussed with pharmacy. The rate of his TPN will be decreased. Will recheck phosphorus and magnesium tomorrow. Repeat INR tomorrow. Repeat CBC and renal panel tomorrow. Advance diet as tolerated. Will try oral supplements. Continue ambulation with assist. The patient continues to have persistent tachycardia this hospital course, but rate is slowly improving. No real change with transfusion of 1 unit of blood. Recheck C-reactive protein tomorrow Discussed case with CCU nursing. We'll check a vitamin B-12 tomorrow regarding borderline low B-12 level Greater than 40 minutes of critical care time spent seeing and evaluating the patient in determining care plan. 03/19/2018 White blood cell count continues to increase and is 16.5 today. Bands are 6 down from 7 yesterday. Hemoglobin has improved to 10.9. Patient remains afebrile. C-reactive protein has decreased from 181 down to 75. We'll continue on fluconazole and Zosyn for intra-abdominal abscesses. Advance diet as tolerated. Continue TPN for now, he will receive a customized formula with no phosphorus and decreased magnesium and calcium. Continue ambulation with assist Recheck CBC with manual differential, renal panel, magnesium tomorrow. 03/20/2018 White blood cell count continues to increase and is 18.8 today from 16.8 yesterday. Bands are 1 down from 6 yesterday. Temperature currently is 99.9. Dr. Gomez has ordered CT abdomen with contrast. The patient is currently on day 4 of Zosyn. He has been on fluconazole since at least February 23. Meropenem was discontinued March 18. Continue TPN for now, he is on a customized formula. Continue ambulation with assist Recheck CBC with manual differential, renal panel, magnesium tomorrow. Discussed with the patient's nurse and family.
--- NOTE | 2018-03-22 10:10 | Pharmacy Consult-TPN/PPN ---
Pharmacy Consult-TPN/PPN - Laboratory Information Chemistry Turbidity < 20 (0-20) 03/22/18 04:18 Sodium 141 MEQ/L (136-146) 03/22/18 04:18 Potassium 4.2 MEQ/L (3.6-5) 03/22/18 04:18 Chloride 104 MEQ/L (98-107) 03/22/18 04:18 Carbon Dioxide 28 MEQ/L (22-30) 03/22/18 04:18 Anion Gap 9 meq/L (5-15) 03/22/18 04:18 BUN 12.0 MG/DL (9-20) 03/22/18 04:18 Creatinine 0.5 mg/dL (0.8-1.5) L 03/22/18 04:18 GFR Calculation 195 03/22/18 04:18 BUN/Creatinine Ratio 24 RATIO (6-26) 03/22/18 04:18 Glucose 96 MG/DL (75-110) 03/22/18 04:18 Glucometer 103 mg/dL (65-110) 03/22/18 06:13 Calculated Osmolality 271 MOSM/KG (261-280) 03/22/18 04:18 Calcium 8.8 MG/DL (8.4-10.2) 03/22/18 04:18 Ionized Calcium [place] 1.11 MMOL/L (1.12-1.32) L 02/25/18 04:20 Phosphorus 5.3 MG/DL (2.5-4.5) H 03/22/18 04:18 Magnesium 2.0 MG/DL (1.6-2.3) 03/22/18 04:18 Iron 11 ug/dL (49-181) L 02/20/18 20:07 TIBC 342 ug/dL (261-497) 02/20/18 20:07 % Saturation 3 % (13-59) L 02/20/18 20:07 Ferritin 2.44 ng/mL (17-464) L 02/20/18 20:07 Total Bilirubin 0.40 MG/DL (0.20-1.30) 03/22/18 04:18 Icterus Index < 2 (0-7) 03/22/18 04:18 AST 23 U/L (17-59) 03/22/18 04:18 ALT 45 U/L (1-50) 03/22/18 04:18 Alkaline Phosphatase 153 U/L (38-126) H 03/22/18 04:18 C-Reactive Protein 62.1 mg/L (0-9) H 03/22/18 04:18 Total Protein 6.4 g/dL (6.3-8.2) 03/22/18 04:18 Albumin 3.0 g/dL (3.5-5.0) L 03/22/18 04:18 Globulin 3.4 G/DL (2.4-3.6) 03/22/18 04:18 Albumin/Globulin Ratio 0.9 RATIO (1.1-2.2) L 03/22/18 04:18 Prealbumin 15.6 mg/dL (17.6-36.0) L 03/21/18 04:06 Lipase 21 U/L (23-300) L 02/20/18 15:25 Plasma Lactate 1.3 MMOL/L (0.6-2.2) 02/24/18 04:13 Vitamin B12 > 1000 pg/mL (239-931) H 03/19/18 04:29 Procalcitonin 0.08 NG/ML 03/21/18 04:06 TSH 2.66 mIU/L (0.47-4.68) 03/21/18 04:06 Specimen Hemolysis < 15 (0-25) 03/22/18 04:18 - Consult Information TPN Consult: Day 27 I will continue the TPN as currently ordered. The pharmacy will continue to monitor and adjust the TPN as needed. Thanks, Gonzales Russell, Pharmacist.
[2018-03-22] MEDS: FAT EMULSION 20% 250 ML IV SCH (15:17)
[2018-03-22] MEDS: SODIUM CHLORIDE IV SCH (15:18)
[2018-03-22] MEDS: [UNRECOGNIZED DRUG - OTHER] IV SCH (15:18)
[2018-03-22] MEDS: POTASSIUM ACETATE IV SCH (15:18)
--- NOTE | 2018-03-22 17:41 | Progress Note ---
DATE OF SERVICE 03/22/2018. FINDINGS Mr. Albright was seen earlier today on rounds. He did not appear to be in acute distress. He was a little more verbal. Today he actually denied abdominal pain when questioned. PHYSICAL EXAM VITAL SIGNS: Afebrile, normotensive. Please refer to EMR. CHEST: Clear to auscultation bilaterally. HEART: Regular rate and rhythm. Normal S1 and S2 without gallops, murmurs or clicks. ABDOMEN: Soft, nontender today. Stool was present within the colostomy. LABORATORY/RADIOGRAPHIC EVALUATION Patient had a CBC today and his white count has gone down to 13,000. Hemoglobin is 9.3. CMP obtained and found to be without marked abnormalities. ASSESSMENT 32-year-old gentleman status post exploratory laparotomies x 2 with partial/ near total colectomy with creation of end colostomy and Mendoza's pouch, drainage of multiple intraabdominal abscesses. Patient showing ongoing clinical and radiographic improvement. PLAN Continuation of current care. Will DC Mcdermott. Overall pleased with the patient' s progress at this time. SYLVAIN
[2018-03-22] MEDS: FLUCONAZOLE PB 200 MG/100 ML BAG IV SCH (17:44)
[2018-03-22] MEDS: METOCLOPRAMIDE 10mg/2ml INJECTION IVP PRN (19:20)
[2018-03-23] MEDS: PIPERACILLIN/TAZOBACTAM 3.375 GM in D5W 100 ML IV SCH ×3 (06:01→19:17)
--- NOTE | 2018-03-23 08:39 | Pharmacy Consult-TPN/PPN ---
Pharmacy Consult-TPN/PPN - Laboratory Information Chemistry Turbidity < 20 (0-20) 03/23/18 04:49 Sodium 141 MEQ/L (136-146) 03/23/18 04:49 Potassium 4.1 MEQ/L (3.6-5) 03/23/18 04:49 Chloride 105 MEQ/L (98-107) 03/23/18 04:49 Carbon Dioxide 27 MEQ/L (22-30) 03/23/18 04:49 Anion Gap 9 meq/L (5-15) 03/23/18 04:49 BUN 11.0 MG/DL (9-20) 03/23/18 04:49 Creatinine 0.5 mg/dL (0.8-1.5) L 03/23/18 04:49 GFR Calculation 195 03/23/18 04:49 BUN/Creatinine Ratio 22 RATIO (6-26) 03/23/18 04:49 Glucose 98 MG/DL (75-110) 03/23/18 04:49 Glucometer 123 mg/dL (65-110) 03/22/18 23:57 Calculated Osmolality 270 MOSM/KG (261-280) 03/23/18 04:49 Calcium 8.7 MG/DL (8.4-10.2) 03/23/18 04:49 Ionized Calcium [place] 1.11 MMOL/L (1.12-1.32) L 02/25/18 04:20 Phosphorus 5.0 MG/DL (2.5-4.5) H 03/23/18 04:49 Magnesium 2.0 MG/DL (1.6-2.3) 03/22/18 04:18 Iron 11 ug/dL (49-181) L 02/20/18 20:07 TIBC 342 ug/dL (261-497) 02/20/18 20:07 % Saturation 3 % (13-59) L 02/20/18 20:07 Ferritin 2.44 ng/mL (17-464) L 02/20/18 20:07 Total Bilirubin 0.40 MG/DL (0.20-1.30) 03/22/18 04:18 Icterus Index < 2 (0-7) 03/23/18 04:49 AST 23 U/L (17-59) 03/22/18 04:18 ALT 45 U/L (1-50) 03/22/18 04:18 Alkaline Phosphatase 153 U/L (38-126) H 03/22/18 04:18 C-Reactive Protein 62.1 mg/L (0-9) H 03/22/18 04:18 Total Protein 6.4 g/dL (6.3-8.2) 03/22/18 04:18 Albumin 3.0 g/dL (3.5-5.0) L 03/22/18 04:18 Globulin 3.4 G/DL (2.4-3.6) 03/22/18 04:18 Albumin/Globulin Ratio 0.9 RATIO (1.1-2.2) L 03/22/18 04:18 Prealbumin 15.6 mg/dL (17.6-36.0) L 03/21/18 04:06 Lipase 21 U/L (23-300) L 02/20/18 15:25 Plasma Lactate 1.3 MMOL/L (0.6-2.2) 02/24/18 04:13 Vitamin B12 > 1000 pg/mL (239-931) H 03/19/18 04:29 Procalcitonin 0.08 NG/ML 03/21/18 04:06 TSH 2.66 mIU/L (0.47-4.68) 03/21/18 04:06 Specimen Hemolysis < 15 (0-25) 03/23/18 04:49 Intake and Output 03/22/18 03/23/18 03/24/18 06:59 06:59 06:59 Intake Total 3636.00 / 3636.00 3776.667 / 3776.667 Output Total 3540 / 3540 3159 / 3159 Balance 96.00 / 96.00 617.667 / 617.667 Weight 59.6 kg 60.8 kg Intake: IV 2536.00 / 2536.00 2876.667 / 2876.667 Fat Emulsion 20% 250 ml @ 25 250.00 / 250.00 250.000 / 250.000 mls/hr IV 1600 [facility] Rx#: [id number] Fluconazole Pb 200 mg In 100 ml 100 / 100 76.667 / 76.667 @ 100 mls/hr IV Q24H [facility] Rx#: [id number] Piperacillin/Tazobactam 3.375 300 / 300 500 / 500 gm In D5w 100 ml @ 200 mls/hr IV Q6H [facility] Rx#:[id number] Sodium Chloride Conc 80 meq 1886.0 / 1886.0 2050.0 / 2050.0 Potassium Acetate Inj 60 meq Magnesium Sulfate Inj 10 meq Calcium Chloride 9.3 meq Multi- Vit Infusion 10 ml Multi-Trace Elements 1 ml In TPN - Custom Formula 2,000 ml @ 82 mls/hr IV .Q24H [facility] Rx#:[id number] Oral 800 / 800 900 / 900 Intake, Catheter Irrigant 300 / 300 Amount Output: Urine 2080 / 2080 Stool 260 / 260 475 / 475 Urine Amount (Catheter) 3125 / 3125 550 / 550 Wound Drainage 155 / 155 54 / 54 Abdomen 50 / 50 0 / 0 Left Anterior Medial Abdomen 51 / 51 35 / 35 Left Lower Abdomen 23 / 23 5 / 5 Left Lower Lateral Abdomen 14 / 14 10 / 10 Right Anterior Medial Abdomen 10 / 10 2 / 2 Right Lower Lateral Abdomen 7 / 7 2 / 2 Other: Urine Appearance Clear Clear Urine Color Yellow Yellow Urine Odor Normal Normal Stool Characteristics Mucoid Stool Color Brown Brown Stool Consistency Soft Liquid Size of Bowel Movement Small Drain Type Left Anterior Medial Abdomen Bulb Haigler Bulb Haigler Left Lower Abdomen Bulb [place]igler Bulb Haigler Left Lower Lateral Abdomen Bulb [place]igler Bulb Haigler Right Anterior Medial Abdomen Bulb Haigler Bulb Haigler Right Lower Lateral Abdomen Bulb Haigler Bulb Haigler # Voids 1 # Incontinent Voids 1 - Consult Information We will continue same TPN rate and formula for next TPN bag. Patient's electrolytes are stable. Thanks
--- NOTE | 2018-03-23 08:48 | Wound Care Progress Note ---
Wound Center Progress Note: Pt seen for wound/ostomy/vac change follow up. Pt sitting in chair waiting for breakfast, moved to bed with assist of 1. Pt is more talkative this morning. Pt has no complaints of pain. Appears colostomy appliance has been changed. Pouching system is intact without leaks. Pouch has moderate amount of yellow brown liquid stool. Wound vac canister has about 50 mL of serosanguineous drainage. Wound vac intact, running at 125 mm Hg continuous pressure. Wound vac dressing removed. Mid abdominal/chest surgical incision: Continues to improve, red granulating tissue, scant active sanguineous drainage during vac change. There are now two separate openings, the skin island at the superior aspect of incision continuous to grow in size, the area of skin that is closed measures 3.2 (L) cm. Entire incision measures 33.2 (L) x 2 (W) x 0.3 (D). Periwound: WDNL. Wound vac dressing reapplied, covered with vac drape. Black foam collapsed without leaks, running at 125 mm Hg continuous pressure. Continue to change wound vac dressing per order, Tuesday and . Continue to monitor and change pouching system PRN. Continue with education for parents PRN.
[2018-03-23] MEDS: ENOXAPARIN 40 MG/0.4 ML INJECTION SQ SCH (09:17)
[2018-03-23] MEDS: PANTOPRAZOLE 40 MG INJECTION IVP SCH (09:17)
[2018-03-23] MEDS: MORPHINE SULFATE 4mg INJECTION IVP PRN ×2 (13:38→15:14)
--- NOTE | 2018-03-23 14:07 | Progress Note ---
- Date 03/23/18 Subjective: Arslan was seen with parents at bedside. He was minimally conversant and responded yes to all questions asked even though answers were clearly untrue; earlier today he responded no to all questions per nursing report. He is ambulated several times and becomes quite tachycardic with minimal activities. Mcdermott catheter was removed last night and he is voiding spontaneously. His appetite is good and he is eating nearly full meals consistently. He's had no vomiting although he indicated to me that he has vomited. TPN continues to infuse. He has been afebrile. Objective Vital signs: Temperature 98.7 F 03/23/18 11:00 Pulse Rate 138 H 03/23/18 11:02 Respiratory Rate 180 H 03/23/18 11:00 Blood Pressure 104/66 03/23/18 07:00 Pulse Oximetry 97 - RA 03/23/18 11:00 I/O 3777/3159 NAD, alert Conjugate gaze, sclera anicteric, anterior tongue clear Neck supple Respirations nonlabored, diminished inspiratory effort, breath sounds clear Regular rhythm, S1-S2, persistent low-grade tachycardia Abdomen soft, mild generalized tenderness-greatest in the right lower quadrant, bowel sounds present; colostomy present in addition to drains. Extremities without edema Moving all extremities well/spontaneously Rhythm: Sinus Tachycardia Height/Weight/BMI: Height 1.75 m Weight 61.2 kg Body Mass Index 22.5 Results - Labs CBC & Chem 7: 03/23/18 04:49 03/23/18 04:49 Labs: Phosphorus 5.0 Microbiology Results: Microbiology 03/01/18 18:56 Abdomen, Left Upper Gram Stain - Final 03/01/18 18:56 Abdomen, Left Upper Surgical Culture - Final Escherichia coli Anaerobic Gram-Negative Bhanu Anaerobic Gram-Positive Cocci 02/23/18 20:15 Peripheral/Iv Start Gram Stain - Final Not performed 02/23/18 20:15 Peripheral/Iv Start Blood Culture - Final No Growth After 5 Days 02/23/18 20:05 Peripheral/Iv Start Gram Stain - Final Not performed 02/23/18 20:05 Peripheral/Iv Start Blood Culture - Final No Growth After 5 Days 02/20/18 20:07 Peripheral/Iv Start Blood Culture - Final No Growth After 5 Days Assessment and Plan (1) Megacolon Problem details: Toxic megacolon Current visit: Yes Status: Acute (2) Perforation of colon Problem details: Perforation of the splenic flexure due to ischemic changes Current visit: Yes Status: Acute Assessment and Plan: Assessment 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 He was also on meropenem, this was discontinued March 18 and Zosyn was initiated on March 18. Tachycardia -persistent during the hospital course Severe constipation-resolved Severe sepsis -resolved Fever Severe iron deficiency anemia -received IV iron 02/25/2018 and 03/04/2018. He has had a total of 6 units of blood, he received his last unit 03/17/2018 Autism Dental problems Hypophosphatemia-resolved Hyperphosphatemia-on TPN Hypermagnesemia-on TPN-resolved Hypokalemia (Not POA) -resolved LLL atelectasis Acute kidney injury with oliguria-postop -resolved Hyperkalemia (Not POA) -resolved Thrombocytosis (Not POA) Mild elevation of INR of 1.39 on 03/19/2018 Plan Improved from when I last saw patient approximate 3 weeks ago; in the intervening time had a second surgery with left hemicolectomy/transverse colectomy and end ileostomy and Hutchinson's pouch. Oral intake improving, has been on a regular diet for approximately 5 days now and is eating meals well. Will discuss tapering TPN off with surgery. Renal function, hemoglobin, and blood pressure all stable. Persistent tachycardia, patient tolerates well-does not respond to additional fluids and patient does not appear to be in pain. Continue fluconazole and Zosyn-antibiotics under the management of Dr. Ac. DVT Prophylaxis: SCD's, Lovenox GI Prophylaxis: Protonix Resuscitation Status: Full Code - Physician Narrative Narrative: Date: 03/23/18 Time: 1403 Hospital Course Summary Disclaimer: The visit summary below is not to be considered part of the above Progress Note. Hospital Course: 02/20/18 Admit, CCU. Bowel rest - NPO. Cont IVF - 1/2 NS with Na of 144. Consult Dr. Gomez for mgt. Sx management with Protonix, morphine, Zofran. Cont IVF for tachycardia; sepsis. Repeat lactate. Cont Zosyn for bowel coverage. Follow BC results. Iron w/u in progress. Type & screen ordered. D/W with Dr. Stevens and RN. 02/22/18 Gastrografin enema 02/21 with copious stool resulting. However, still with stool in rectal vault. Deferring further management to surgery team, await recs. Cont Zosyn given bandemia, tachycardia and concern for toxic megacolon. 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 Clinically deteriorating. Going for surgery for perforation/free air. Near total colectomy performed. Became hypotensive, tachycardic with rates into 180s. Aggressively fluid resuscitated. 02/24/18 UOP, tachycardia improved. Cont abx. Initiate TPN. Monitoring for return of bowel fxn. 02/25/18 Given Kphos Transfused another 1U PRBCs. Stopped LR. Surgery to trial clamping NGT. Intermittently febrile- rectal Tylenol. 02/26/18 Did have fever overnight. Has tolerated NGT clamping. No O2 requirements. No N/V /CP. Hasn't been able to perform IS very well. 02/27/18 Remains on TPN, tolerating limited oral liquids earlier today however resultant emesis has required resumption of NG suction. Good output per ostomy; 2400 mL output reported during prior 24-hour period. Hemoglobin drifting down, ongoing hypokalemia-post being reassessed this afternoon. Potassium increased and TPN but may require supplemental boluses due to potassium lost in stool and emesis. Persistent tachycardia-may require additional blood transfusion. Remains on Zosyn for peritonitis; chest x-ray with pleural effusion but no evidence of pneumonia. May require repeat CT abdomen/pelvis to exclude intra-abdominal abscess. 02/28/18 Remains on TPN, electrolytes stable. Good urine output per ostomy but continues to have high volume output per NG. Output significantly higher than input, weight down, ongoing tachycardia--> 1 L fluid bolus tonight. Anticipate ongoing need for fluids to match fluid losses. CT abdomen/pelvis discussed with radiology this evening and subsequently with Dr. Hills; will review further with radiology tomorrow to determine if drainage can be performed of the subphrenic abscess percutaneously or if surgical drainage/washout will be needed due to presence of multiple smaller fluid collections suggestive of early abscesses. Dr. Hills notified patient 's parents of findings. Hemoglobin continues to drift down very slowly, may be slightly hemoconcentrated at present. Type and screen in a.m. Anticipating transfusion in the next 1-2 days. 03/01/18 OP Day - Exploratory laparotomy, drainage of multiple intraabdominal abscesses, fecal disimpaction, intraoperative flexible proctoscopy. Subdiaphragmatic abscess and left upper quadrant-discussed with radiology and message subsequently relayed to Dr. Hills regarding potential risk of percutaneous drainage. Patient tenably scheduled to return to the operating room later today. Several very small extensive gas in the pelvis without clear room enhancement to suggest abscess, may simply be postoperative change. Remains on TPN, electrolytes stable. Good urine output per ostomy but continues to have high volume output per NG. Output significantly higher than input, weight down, ongoing tachycardia--> 1 L fluid bolus this a.m. and continue normal saline at 100 mL per hour. 2 units PRBCs matched preoperatively; one being given prior to surgery for hemoglobin 7.4. 03/02/18 s/p ex lap with placement of drains by Dr. Hills. Febrile before surgery. WBC up post-op. Wound cx growing GPC, GNR, GPR. Continue Zosyn Remains on TPN, reduce K+. Good urine output. Output per NG down. Continued tachycardia. Continue IVF and treat pain. Output significantly higher than input, weight down, ongoing tachycardia--> 1 L fluid bolus this a.m. and continue normal saline at 100 mL per hour. Anticipate ongoing need for fluids to match fluid losses. 1 unit PRBCs given 03/01. Total of 4 units transfused Ferrlecit dose given 02/25, plan to repeat dose 03/04. Discussed with nursing who provide supplemental history; mother updated. Prognosis guarded. 03/03/18 s/p ex lap 03/01 with placement of drains by Dr. Hills. Afebrile and WBC down. Wound cx growing GPC, GNR, GPR. Continue Zosyn and fluconazole Continue TPN, K+ improved. Good urine output. Output per NG and ostomy down since 03/01 ex lap. Continued tachycardia. Continue IVF and treat pain. ? whether anxious. Trial of Ativan Anticipate ongoing need for fluids to match fluid losses. 1 unit PRBCs given 03/01. Total of 4 units transfused Ferrlecit dose given 02/25, plan to repeat dose 03/04. Discussed with nursing who provide supplemental history; mother updated. Prognosis guarded. 03/04/18 s/p ex lap 03/01 with placement of drains by Dr. Hills. Fever and WBC up slightly. Wound cx growing e coli, sensitive to Zosyn. Fluconazole. Check CXR Continue TPN, K+ improved. Good urine output. Output per NG and ostomy down since 03/01 ex lap. Continued tachycardia. Hold LR as patient with trace edema. Start fentanyl patch for pain. He got 28 mg iv morphine yesterday. Starting fentanyl at 12mcg d /t possible interaction with Fluconazole. 1 unit PRBCs given 03/01. Total of 4 units transfused Ferrlicit dose given 02/25, plan to repeat dose 03/04. Discussed with nursing who provide supplemental history. Encourage activity. Prognosis guarded 03/05/18 s/p ex lap 03/01 with placement of drains by Dr. Hills. Wound VAC. Fever. WBC down slightly. Wound cx growing e coli, sensitive to Zosyn. Fluconazole. Check CXR. Continue TPN, decrease Mg. Good urine output. Output per NG up yesterday. Continued tachycardia. Holding LR as patient with trace edema. Appears more comfortable with fentanyl patch for pain. Platelets trending up. Check inflammatory markers. If continued fever, consider repeating CT Encourage activity. 03/06/18 Temp elevations to 100.5 - 101.7. Persistent tachycardia in 130s. BP 100's. WBC with gradual trend down to 17.9 - was 25.0 on 03/02. Platelets trending up to 971 (was 407 on 03/02). Electrolytes and renal status stable - on TPN. Will continue with Zosyn and Diflucan for antimicrobial coverage. Continue with wound vac and drains. CT scan of ab/pelvis to exclude occult abscess formation. Encourage continued activities. 03/07/18 WBC with gradual trend down to 14.3 - was 17.9 on yesterday. Platelets elevated at 961 (was 971 yesterday). Hemoglobin persistently low at 7.6; with continued tachycardia will give 1 unit of pRBC. Electrolytes and renal status stable - on TPN. Will continue with Zosyn for antimicrobial coverage; Dr Gomez added Vancomycin and increased Diflucan to 200mg daily. Continue with wound vac and drains. CT scan of ab/pelvis showed possible new abscess formation in the suprapubic region and omental area. Encourage continued activities. 03/08/18 WBC with increase back to 17.1. HGB increased to 8.2 post transfusion yesterday. Pharm recommended changing Zosyn to Meropenem - did agree. Continue vancomycin and Diflucan. Will continue with TPN for nutritional support - NS bolus of 500cc to help with tachycardia. Continue with pain control. 03/09/18 Temp elevations continue. WBC with decrease to 15.6, but increased bands noted. Renal status and electrolytes stable. Continues of Meropenem, vancomycin, and Diflucan for coverage. Dr Gomez plan repeating CT scan with contrast (though NG) tomorrow to check for bowel function and further abscesses. TPN for nutritional and volume support. Continue with MS for pain, add Aspercreme for muscle discomfort. 03/10/18 Temp elevations continue. WBC 16.4. Renal status and electrolytes stable. Little change in overall status. CT ab/pelvis shown abscess with drain in place, however abscess has increased in size. Sx working to have drains flushed. Continues on Meropenem, vancomycin, and Diflucan for coverage. TPN for nutritional and volume support. Will give 500cc NS bolus to help improve BP. 03/11/18 Temp elevations continue. WBC trended down to 14. Renal status and electrolytes stable. Little change in overall status. CT ab/pelvis shown abscess with drain in place, however abscess has increased in size. Sx working to have drains flushed. Continues on Meropenem, vancomycin, and Diflucan for coverage. TPN for nutritional and volume support. Repeat 500cc NS bolus today and add metoprolol for tachycardia as BP allows. Continue pain control. 03/12/18 Temp elevations continue. WBC trended down to 12.7. Renal status and electrolytes stable. Little change in overall status. CT ab/pelvis shown abscess with drain in place, however abscess has increased in size per CT 03/10/18. Sx working to have drains flushed. Continues on Meropenem, vancomycin, and Diflucan for coverage. TPN for nutritional and volume support. Added q12hr metoprolol in attempt to control heart rate, only marginally working and could be titrated if blood pressure allows. Continue pain control. 03/13/18 WBC with trend down, but still with tachycardia and intermittent temp elevations. Continues on Meropenem, vancomycin, and Diflucan for coverage. TPN for nutritional and volume support. Continue pain control. 03/14/18 WBC with elevation to 13.4. CT showing decrease size of abscess. Continues on Meropenem, vancomycin, and Diflucan for coverage. TPN for nutritional and volume support. Electrolytes and renal status stable. Continue pain control. Continue activities as able. 03/15/18 WBC with stable at 13.7. Platelets with decrease to 594. Less temp elevations seen. Continues on Meropenem, vancomycin, and Diflucan for coverage. TPN for nutritional and volume support. Electrolytes and renal status stable. Dr Gomez trying NG clamping and clear liquids. Continue pain control. Continue activities as able. 03/16/18 WBC with decrease to 11.7. Platelets with decrease to 546. Less temp elevations seen. Continues on Meropenem, vancomycin, and Diflucan for coverage. TPN for nutritional and volume support. Electrolytes and renal status stable. NG removed; clear liquids. 03/17/18 WBC with decrease to 10.1. Platelets with decrease to 529. Less temp elevations seen. Evaluated by Dr Ac today - vancomycin stopped and changed meropenem to Zosyn and continued Diflucan. TPN for nutritional and volume support. Electrolytes and renal status stable. Advanced to regular diet but oral drive low. HGB variable, but trend down. Will give 1 unit pRBC due to continued tachycardia in post op patent. Continue pain control. Continue activities as able - walking in halls with nursing help. 03/18/2018 White blood cell count today is up mildly to 12.1. Bands are up to 7 from one yesterday. He has been afebrile over 24 hours. Hemoglobin improved to 9.5 up from 7.1 yesterday. He received 1 unit of blood yesterday. He does have mildly elevated phosphorus and magnesium. Discussed with pharmacy. The rate of his TPN will be decreased. Will recheck phosphorus and magnesium tomorrow. Repeat INR tomorrow. Repeat CBC and renal panel tomorrow. Advance diet as tolerated. Will try oral supplements. Continue ambulation with assist. The patient continues to have persistent tachycardia this hospital course, but rate is slowly improving. No real change with transfusion of 1 unit of blood. Recheck C-reactive protein tomorrow Discussed case with CCU nursing. We'll check a vitamin B-12 tomorrow regarding borderline low B-12 level Greater than 40 minutes of critical care time spent seeing and evaluating the patient in determining care plan. 03/19/2018 White blood cell count continues to increase and is 16.5 today. Bands are 6 down from 7 yesterday. Hemoglobin has improved to 10.9. Patient remains afebrile. C-reactive protein has decreased from 181 down to 75. We'll continue on fluconazole and Zosyn for intra-abdominal abscesses. Advance diet as tolerated. Continue TPN for now, he will receive a customized formula with no phosphorus and decreased magnesium and calcium. Continue ambulation with assist Recheck CBC with manual differential, renal panel, magnesium tomorrow. 03/20/2018 White blood cell count continues to increase and is 18.8 today from 16.8 yesterday. Bands are 1 down from 6 yesterday. Temperature currently is 99.9. Dr. Gomez has ordered CT abdomen with contrast. The patient is currently on day 4 of Zosyn. He has been on fluconazole since at least February 23. Meropenem was discontinued March 18. Continue TPN for now, he is on a customized formula. Continue ambulation with assist Recheck CBC with manual differential, renal panel, magnesium tomorrow. Discussed with the patient's nurse and family. 03/21/18 CT abdomen with contrast obtained yesterday and shows a decrease in size of the intra-abdominal abscesses with no new abscess formation. White count is essentially stable from yesterday. The patient remains afebrile. He continues on fluconazole which was started February 23 and Zosyn which was started March 17. Prior to being on Zosyn, he was on meropenem but this was discontinued March 18 He continues to have tachycardia, but urine output remains stable. Fluid boluses in the past have not improved tachycardia. He does not appear to be in pain or anxious at this time. He is on fentanyl patch for pain and has when necessary medication for pain and anxiety. Will check TSH and reflex T4. 03/22/18 Stable, TSH normal. Mcdermott catheter discontinued. Pain well-controlled; taking by mouth well. 03/23/18 Oral intake improving, has been on a regular diet for approximately 5 days now and is eating meals well. Will discuss tapering TPN off with surgery. Renal function, hemoglobin, and blood pressure all stable. Persistent tachycardia, patient tolerates well-does not respond to additional fluids and patient does not appear to be in pain. Continue fluconazole and Zosyn-antibiotics under the management of Dr. Ac.
[2018-03-23] MEDS: SODIUM CHLORIDE IV SCH (15:09)
[2018-03-23] MEDS: POTASSIUM ACETATE IV SCH (15:09)
[2018-03-23] MEDS: [UNRECOGNIZED DRUG - OTHER] IV SCH (15:09)
--- NOTE | 2018-03-23 15:47 | Progress Note ---
DATE 03/23/2018 FINDINGS Cosmo was seen this morning on rounds. He was in good spirits. He denied abdominal pain. OBJECTIVE VITALS: Afebrile. Normotensive. He remains tachycardic. Please refer to EMR if detail needed. ABDOMEN: Soft, nontender. CLIFTON drains are in place and functioning. LABORATORY/RADIOGRAPHIC EVALUATION Patient had a CBC today and his white count is stable at 13.9. Hemoglobin is stable at 9.4. BMP obtained and found to be within normal limits. ASSESSMENT 32-year-old gentleman status post exploratory laparotomies x2 with near total colectomy with creation of end colostomy and Mendoza's pouch secondary to ruptured colon with associated fecal peritonitis. Status post drainage of multiple intraabdominal abscesses. Patient doing well. PLAN Continue with current care. I do believe that at some point in time in the near future, the patient could likely be transferred out to the surgical floor. I do believe that next week the patient could perhaps undergo a delayed primary closure of his midline incision. I will be leaving town tomorrow and care will be turned over to Dr. Hills. [facility] HOSPITALDarrick
[2018-03-23] MEDS: FAT EMULSION 20% 250 ML IV SCH (16:28)
[2018-03-23] MEDS: FLUCONAZOLE PB 200 MG/100 ML BAG IV SCH (17:56)
[2018-03-23] MEDS: INSULIN ASPART 100unit/ml INJECTION SQ PRN (18:09)
[2018-03-23] MEDS ORDERED: POTASSIUM ACETATE IV SCH (21:36)
[2018-03-23] MEDS ORDERED: SODIUM CHLORIDE IV SCH (21:36)
[2018-03-23] MEDS ORDERED: [UNRECOGNIZED DRUG - OTHER] IV SCH (21:36)
[2018-03-24] MEDS: PIPERACILLIN/TAZOBACTAM 3.375 GM in D5W 100 ML IV SCH ×4 (00:50→18:03)
[2018-03-24] MEDS: METOCLOPRAMIDE 10mg/2ml INJECTION IVP PRN (01:08)
[2018-03-24] MEDS: PANTOPRAZOLE 40 MG TABLET PO SCH (07:16)
[2018-03-24] MEDS: ENOXAPARIN 40 MG/0.4 ML INJECTION SQ SCH (09:19)
--- NOTE | 2018-03-24 11:30 | General Surgery Progress Note ---
Subjective Patient reports: pain is less, tolerating a regular diet, voiding w/o difficulty , bowel movement (on ostomy bag), afebrile Narrative: He is awake, alert this morning. Denies pain, does not want to go for a walk. Staff states he has been walking as far as the front lobby and is fairly strong and steady. Eating regular meals, breakfast is usually smaller portion, but eats a little more for lunch and supper. Staff indicate most of the NS used for left CLIFTON irrigation comes out from around the outside of the CLIFTON, even with pressure held on the CLIFTON exit site. - Vital Signs Last Vital Signs Temp 97.9 F 03/24/18 01:00 Pulse 129 H 03/24/18 10:00 Resp 19 03/24/18 10:00 BP 105/71 03/24/18 10:00 Pulse Ox 98 03/24/18 10:00 - Laboratory Result Diagrams: 03/24/18 03:59 03/24/18 03:59 - Abnormal Exam General: other (Cognitive defecit) - Normal Exam General: awake, alert Cardiovascular: regular rhythm, regular rate Respiratory: clear bilaterally, no labored breathing Abdominal: BS normo active x4, soft, non-tender (to lateral palpation when questioned), incision(s) (wond vac foam nicely compressed midline incision), other (ostomy with soft light brown stool in the bag. 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 Will decrease frequency and amount of irrigation to 25 ml/[address]ound vac in place midline, consider delayed closure next week. He is eating and has stool in ostomy bag. Agree with DC TPN. From surgical standpoint can transfer to the surgical floor, he needs a room within sight of the nurses station. Hospital Course Summary Disclaimer: The visit summary below is not to be considered part of the above Progress Note. Hospital Course: 02/20/18 Admit, CCU. Bowel rest - NPO. Cont IVF - 1/2 NS with Na of 144. Consult Dr. Gomez for mgt. Sx management with Protonix, morphine, Zofran. Cont IVF for tachycardia; sepsis. Repeat lactate. Cont Zosyn for bowel coverage. Follow BC results. Iron w/u in progress. Type & screen ordered. D/W with Dr. Stevens and RN. 02/22/18 Gastrografin enema 02/21 with copious stool resulting. However, still with stool in rectal vault. Deferring further management to surgery team, await recs. Cont Zosyn given bandemia, tachycardia and concern for toxic megacolon. 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 Clinically deteriorating. Going for surgery for perforation/free air. Near total colectomy performed. Became hypotensive, tachycardic with rates into 180s. Aggressively fluid resuscitated. 02/24/18 UOP, tachycardia improved. Cont abx. Initiate TPN. Monitoring for return of bowel fxn. 02/25/18 Given Kphos Transfused another 1U PRBCs. Stopped LR. Surgery to trial clamping NGT. Intermittently febrile- rectal Tylenol. 02/26/18 Did have fever overnight. Has tolerated NGT clamping. No O2 requirements. No N/V /CP. Hasn't been able to perform IS very well. 02/27/18 Remains on TPN, tolerating limited oral liquids earlier today however resultant emesis has required resumption of NG suction. Good output per ostomy; 2400 mL output reported during prior 24-hour period. Hemoglobin drifting down, ongoing hypokalemia-post being reassessed this afternoon. Potassium increased and TPN but may require supplemental boluses due to potassium lost in stool and emesis. Persistent tachycardia-may require additional blood transfusion. Remains on Zosyn for peritonitis; chest x-ray with pleural effusion but no evidence of pneumonia. May require repeat CT abdomen/pelvis to exclude intra-abdominal abscess. 02/28/18 Remains on TPN, electrolytes stable. Good urine output per ostomy but continues to have high volume output per NG. Output significantly higher than input, weight down, ongoing tachycardia--> 1 L fluid bolus tonight. Anticipate ongoing need for fluids to match fluid losses. CT abdomen/pelvis discussed with radiology this evening and subsequently with Dr. Hills; will review further with radiology tomorrow to determine if drainage can be performed of the subphrenic abscess percutaneously or if surgical drainage/washout will be needed due to presence of multiple smaller fluid collections suggestive of early abscesses. Dr. Hills notified patient 's parents of findings. Hemoglobin continues to drift down very slowly, may be slightly hemoconcentrated at present. Type and screen in a.m. Anticipating transfusion in the next 1-2 days. 03/01/18 OP Day - Exploratory laparotomy, drainage of multiple intraabdominal abscesses, fecal disimpaction, intraoperative flexible proctoscopy. Subdiaphragmatic abscess and left upper quadrant-discussed with radiology and message subsequently relayed to Dr. Hills regarding potential risk of percutaneous drainage. Patient tenably scheduled to return to the operating room later today. Several very small extensive gas in the pelvis without clear room enhancement to suggest abscess, may simply be postoperative change. Remains on TPN, electrolytes stable. Good urine output per ostomy but continues to have high volume output per NG. Output significantly higher than input, weight down, ongoing tachycardia--> 1 L fluid bolus this a.m. and continue normal saline at 100 mL per hour. 2 units PRBCs matched preoperatively; one being given prior to surgery for hemoglobin 7.4. 03/02/18 s/p ex lap with placement of drains by Dr. Hills. Febrile before surgery. WBC up post-op. Wound cx growing GPC, GNR, GPR. Continue Zosyn Remains on TPN, reduce K+. Good urine output. Output per NG down. Continued tachycardia. Continue IVF and treat pain. Output significantly higher than input, weight down, ongoing tachycardia--> 1 L fluid bolus this a.m. and continue normal saline at 100 mL per hour. Anticipate ongoing need for fluids to match fluid losses. 1 unit PRBCs given 03/01. Total of 4 units transfused Ferrlecit dose given 02/25, plan to repeat dose 03/04. Discussed with nursing who provide supplemental history; mother updated. Prognosis guarded. 03/03/18 s/p ex lap 03/01 with placement of drains by Dr. Hills. Afebrile and WBC down. Wound cx growing GPC, GNR, GPR. Continue Zosyn and fluconazole Continue TPN, K+ improved. Good urine output. Output per NG and ostomy down since 03/01 ex lap. Continued tachycardia. Continue IVF and treat pain. ? whether anxious. Trial of Ativan Anticipate ongoing need for fluids to match fluid losses. 1 unit PRBCs given 03/01. Total of 4 units transfused Ferrlecit dose given 02/25, plan to repeat dose 03/04. Discussed with nursing who provide supplemental history; mother updated. Prognosis guarded. 03/04/18 s/p ex lap 03/01 with placement of drains by Dr. Hills. Fever and WBC up slightly. Wound cx growing e coli, sensitive to Zosyn. Fluconazole. Check CXR Continue TPN, K+ improved. Good urine output. Output per NG and ostomy down since 03/01 ex lap. Continued tachycardia. Hold LR as patient with trace edema. Start fentanyl patch for pain. He got 28 mg iv morphine yesterday. Starting fentanyl at 12mcg d /t possible interaction with Fluconazole. 1 unit PRBCs given 03/01. Total of 4 units transfused Ferrlicit dose given 02/25, plan to repeat dose 03/04. Discussed with nursing who provide supplemental history. Encourage activity. Prognosis guarded 03/05/18 s/p ex lap 03/01 with placement of drains by Dr. Hills. Wound VAC. Fever. WBC down slightly. Wound cx growing e coli, sensitive to Zosyn. Fluconazole. Check CXR. Continue TPN, decrease Mg. Good urine output. Output per NG up yesterday. Continued tachycardia. Holding LR as patient with trace edema. Appears more comfortable with fentanyl patch for pain. Platelets trending up. Check inflammatory markers. If continued fever, consider repeating CT Encourage activity. 03/06/18 Temp elevations to 100.5 - 101.7. Persistent tachycardia in 130s. BP 100's. WBC with gradual trend down to 17.9 - was 25.0 on 03/02. Platelets trending up to 971 (was 407 on 03/02). Electrolytes and renal status stable - on TPN. Will continue with Zosyn and Diflucan for antimicrobial coverage. Continue with wound vac and drains. CT scan of ab/pelvis to exclude occult abscess formation. Encourage continued activities. 03/07/18 WBC with gradual trend down to 14.3 - was 17.9 on yesterday. Platelets elevated at 961 (was 971 yesterday). Hemoglobin persistently low at 7.6; with continued tachycardia will give 1 unit of pRBC. Electrolytes and renal status stable - on TPN. Will continue with Zosyn for antimicrobial coverage; Dr Gomez added Vancomycin and increased Diflucan to 200mg daily. Continue with wound vac and drains. CT scan of ab/pelvis showed possible new abscess formation in the suprapubic region and omental area. Encourage continued activities. 03/08/18 WBC with increase back to 17.1. HGB increased to 8.2 post transfusion yesterday. Pharm recommended changing Zosyn to Meropenem - did agree. Continue vancomycin and Diflucan. Will continue with TPN for nutritional support - NS bolus of 500cc to help with tachycardia. Continue with pain control. 03/09/18 Temp elevations continue. WBC with decrease to 15.6, but increased bands noted. Renal status and electrolytes stable. Continues of Meropenem, vancomycin, and Diflucan for coverage. Dr Gomez plan repeating CT scan with contrast (though NG) tomorrow to check for bowel function and further abscesses. TPN for nutritional and volume support. Continue with MS for pain, add Aspercreme for muscle discomfort. 03/10/18 Temp elevations continue. WBC 16.4. Renal status and electrolytes stable. Little change in overall status. CT ab/pelvis shown abscess with drain in place, however abscess has increased in size. Sx working to have drains flushed. Continues on Meropenem, vancomycin, and Diflucan for coverage. TPN for nutritional and volume support. Will give 500cc NS bolus to help improve BP. 03/11/18 Temp elevations continue. WBC trended down to 14. Renal status and electrolytes stable. Little change in overall status. CT ab/pelvis shown abscess with drain in place, however abscess has increased in size. Sx working to have drains flushed. Continues on Meropenem, vancomycin, and Diflucan for coverage. TPN for nutritional and volume support. Repeat 500cc NS bolus today and add metoprolol for tachycardia as BP allows. Continue pain control. 03/12/18 Temp elevations continue. WBC trended down to 12.7. Renal status and electrolytes stable. Little change in overall status. CT ab/pelvis shown abscess with drain in place, however abscess has increased in size per CT 03/10/18. Sx working to have drains flushed. Continues on Meropenem, vancomycin, and Diflucan for coverage. TPN for nutritional and volume support. Added q12hr metoprolol in attempt to control heart rate, only marginally working and could be titrated if blood pressure allows. Continue pain control. 03/13/18 WBC with trend down, but still with tachycardia and intermittent temp elevations. Continues on Meropenem, vancomycin, and Diflucan for coverage. TPN for nutritional and volume support. Continue pain control. 03/14/18 WBC with elevation to 13.4. CT showing decrease size of abscess. Continues on Meropenem, vancomycin, and Diflucan for coverage. TPN for nutritional and volume support. Electrolytes and renal status stable. Continue pain control. Continue activities as able. 03/15/18 WBC with stable at 13.7. Platelets with decrease to 594. Less temp elevations seen. Continues on Meropenem, vancomycin, and Diflucan for coverage. TPN for nutritional and volume support. Electrolytes and renal status stable. Dr Gomez trying NG clamping and clear liquids. Continue pain control. Continue activities as able. 03/16/18 WBC with decrease to 11.7. Platelets with decrease to 546. Less temp elevations seen. Continues on Meropenem, vancomycin, and Diflucan for coverage. TPN for nutritional and volume support. Electrolytes and renal status stable. NG removed; clear liquids. 03/17/18 WBC with decrease to 10.1. Platelets with decrease to 529. Less temp elevations seen. Evaluated by Dr Ac today - vancomycin stopped and changed meropenem to Zosyn and continued Diflucan. TPN for nutritional and volume support. Electrolytes and renal status stable. Advanced to regular diet but oral drive low. HGB variable, but trend down. Will give 1 unit pRBC due to continued tachycardia in post op patent. Continue pain control. Continue activities as able - walking in halls with nursing help. 03/18/2018 White blood cell count today is up mildly to 12.1. Bands are up to 7 from one yesterday. He has been afebrile over 24 hours. Hemoglobin improved to 9.5 up from 7.1 yesterday. He received 1 unit of blood yesterday. He does have mildly elevated phosphorus and magnesium. Discussed with pharmacy. The rate of his TPN will be decreased. Will recheck phosphorus and magnesium tomorrow. Repeat INR tomorrow. Repeat CBC and renal panel tomorrow. Advance diet as tolerated. Will try oral supplements. Continue ambulation with assist. The patient continues to have persistent tachycardia this hospital course, but rate is slowly improving. No real change with transfusion of 1 unit of blood. Recheck C-reactive protein tomorrow Discussed case with CCU nursing. We'll check a vitamin B-12 tomorrow regarding borderline low B-12 level Greater than 40 minutes of critical care time spent seeing and evaluating the patient in determining care plan. 03/19/2018 White blood cell count continues to increase and is 16.5 today. Bands are 6 down from 7 yesterday. Hemoglobin has improved to 10.9. Patient remains afebrile. C-reactive protein has decreased from 181 down to 75. We'll continue on fluconazole and Zosyn for intra-abdominal abscesses. Advance diet as tolerated. Continue TPN for now, he will receive a customized formula with no phosphorus and decreased magnesium and calcium. Continue ambulation with assist Recheck CBC with manual differential, renal panel, magnesium tomorrow. 03/20/2018 White blood cell count continues to increase and is 18.8 today from 16.8 yesterday. Bands are 1 down from 6 yesterday. Temperature currently is 99.9. Dr. Gomez has ordered CT abdomen with contrast. The patient is currently on day 4 of Zosyn. He has been on fluconazole since at least February 23. Meropenem was discontinued March 18. Continue TPN for now, he is on a customized formula. Continue ambulation with assist Recheck CBC with manual differential, renal panel, magnesium tomorrow. Discussed with the patient's nurse and family. 03/21/18 CT abdomen with contrast obtained yesterday and shows a decrease in size of the intra-abdominal abscesses with no new abscess formation. White count is essentially stable from yesterday. The patient remains afebrile. He continues on fluconazole which was started February 23 and Zosyn which was started March 17. Prior to being on Zosyn, he was on meropenem but this was discontinued March 18 He continues to have tachycardia, but urine output remains stable. Fluid boluses in the past have not improved tachycardia. He does not appear to be in pain or anxious at this time. He is on fentanyl patch for pain and has when necessary medication for pain and anxiety. Will check TSH and reflex T4. 03/22/18 Stable, TSH normal. Mcdermott catheter discontinued. Pain well-controlled; taking by mouth well. 03/23/18 Oral intake improving, has been on a regular diet for approximately 5 days now and is eating meals well. Will discuss tapering TPN off with surgery. Renal function, hemoglobin, and blood pressure all stable. Persistent tachycardia, patient tolerates well-does not respond to additional fluids and patient does not appear to be in pain. Continue fluconazole and Zosyn-antibiotics under the management of Dr. Ac.
--- NOTE | 2018-03-24 14:31 | Progress Note ---
- Date 03/24/18 Subjective: Arslan was seen with his mother bedside. He was listing to headphones but responded to questions indicating no dyspnea or nausea. Nursing report mucus output from her ostomy. Arslan reports he's a little bit lightheaded when he walks and feels his heart race sometimes. Appetite is fair but it doesn't sound as though he is eating as well today as he did yesterday. Mother had no new concerns or questions. Objective Vital signs: Temperature 98.1 F 03/24/18 12:00 Pulse Rate 135 H 03/24/18 14:00 Respiratory Rate 18 03/24/18 14:00 Blood Pressure 100/63 03/24/18 14:00 Pulse Oximetry 97 03/24/18 14:00 I/O 2567/2830 NAD, alert, more interactive than I typically seen him in the past EOMI, conjugate gaze, sclera anicteric Respirations unlabored, decreased airflow/inspiratory effort, breath sounds clear Regular rhythm, S1-S2, increased heart rate Abdomen soft, moderately distended, mild generalized tenderness, sparse bowel sounds Extremities without edema Rhythm: Sinus Tachycardia Height/Weight/BMI: Height 1.75 m Weight 60.7 kg Body Mass Index 22.5 Results - Labs CBC & Chem 7: 03/24/18 03:59 03/24/18 03:59 Microbiology Results: Assessment and Plan (1) Megacolon Problem details: Toxic megacolon Current visit: Yes Status: Resolved (2) Perforation of colon Problem details: Perforation of the splenic flexure due to ischemic changes Current visit: Yes Status: Acute Assessment and Plan: Assessment 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 On meropenem 03/08-03/17, Vancomycin 03/07-03/17; Zosyn initiated on March 18. Tachycardia -persistent during the hospital course Severe constipation-resolved Severe sepsis -resolved Fever Severe iron deficiency anemia-received IV iron 02/25/2018 and 03/04/2018. He has had a total of 6 units of blood, he received his last unit 03/17/2018 Autism Dental problems Hypophosphatemia-resolved Hyperphosphatemia-on TPN Hypermagnesemia-on TPN-resolved Hypokalemia (Not POA) -resolved LLL atelectasis Acute kidney injury with oliguria-postop -resolved Hyperkalemia (Not POA) -resolved Thrombocytosis (Not POA) Mild elevation of INR of 1.39 on 03/19/2018 Plan Doing well, TPN rate decreased to 50% yesterday and will cut to 20 mL per hour for the final hour and then discontinue later this afternoon. Dr. Gomez indicated that patient may be ready for removal of the wound VAC and delayed primary closure of midline incision as early as next week yesterday. Persistent sinus tachycardia-cortisol will be checked with morning labs. Discontinue daily CBCs; off TPN anticipate checking electrolytes every 2-3 days. Continue Zosyn and fluconazole, Dr. Ac recommended at least 2 weeks antibiotics when seen 03/[address] abdomen/pelvis prior to discontinuation to make sure abscesses had resolved. Surgery has cleared to transfer out of ICU. DVT Prophylaxis: Lovenox GI Prophylaxis: Protonix Resuscitation Status: Full Code - Physician Narrative Narrative: Date: 03/24/18 Time: 1427 Hospital Course Summary Disclaimer: The visit summary below is not to be considered part of the above Progress Note. Hospital Course: 02/20/18 Admit, CCU. Bowel rest - NPO. Cont IVF - 1/2 NS with Na of 144. Consult Dr. Gomez for mgt. Sx management with Protonix, morphine, Zofran. Cont IVF for tachycardia; sepsis. Repeat lactate. Cont Zosyn for bowel coverage. Follow BC results. Iron w/u in progress. Type & screen ordered. D/W with Dr. Stevens and RN. 02/22/18 Gastrografin enema 02/21 with copious stool resulting. However, still with stool in rectal vault. Deferring further management to surgery team, await recs. Cont Zosyn given bandemia, tachycardia and concern for toxic megacolon. 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 Clinically deteriorating. Going for surgery for perforation/free air. Near total colectomy performed. Became hypotensive, tachycardic with rates into 180s. Aggressively fluid resuscitated. 02/24/18 UOP, tachycardia improved. Cont abx. Initiate TPN. Monitoring for return of bowel fxn. 02/25/18 Given Kphos Transfused another 1U PRBCs. Stopped LR. Surgery to trial clamping NGT. Intermittently febrile- rectal Tylenol. 02/26/18 Did have fever overnight. Has tolerated NGT clamping. No O2 requirements. No N/V /CP. Hasn't been able to perform IS very well. 02/27/18 Remains on TPN, tolerating limited oral liquids earlier today however resultant emesis has required resumption of NG suction. Good output per ostomy; 2400 mL output reported during prior 24-hour period. Hemoglobin drifting down, ongoing hypokalemia-post being reassessed this afternoon. Potassium increased and TPN but may require supplemental boluses due to potassium lost in stool and emesis. Persistent tachycardia-may require additional blood transfusion. Remains on Zosyn for peritonitis; chest x-ray with pleural effusion but no evidence of pneumonia. May require repeat CT abdomen/pelvis to exclude intra-abdominal abscess. 02/28/18 Remains on TPN, electrolytes stable. Good urine output per ostomy but continues to have high volume output per NG. Output significantly higher than input, weight down, ongoing tachycardia--> 1 L fluid bolus tonight. Anticipate ongoing need for fluids to match fluid losses. CT abdomen/pelvis discussed with radiology this evening and subsequently with Dr. Hills; will review further with radiology tomorrow to determine if drainage can be performed of the subphrenic abscess percutaneously or if surgical drainage/washout will be needed due to presence of multiple smaller fluid collections suggestive of early abscesses. Dr. Hills notified patient 's parents of findings. Hemoglobin continues to drift down very slowly, may be slightly hemoconcentrated at present. Type and screen in a.m. Anticipating transfusion in the next 1-2 days. 03/01/18 OP Day - Exploratory laparotomy, drainage of multiple intraabdominal abscesses, fecal disimpaction, intraoperative flexible proctoscopy. Subdiaphragmatic abscess and left upper quadrant-discussed with radiology and message subsequently relayed to Dr. Hills regarding potential risk of percutaneous drainage. Patient tenably scheduled to return to the operating room later today. Several very small extensive gas in the pelvis without clear room enhancement to suggest abscess, may simply be postoperative change. Remains on TPN, electrolytes stable. Good urine output per ostomy but continues to have high volume output per NG. Output significantly higher than input, weight down, ongoing tachycardia--> 1 L fluid bolus this a.m. and continue normal saline at 100 mL per hour. 2 units PRBCs matched preoperatively; one being given prior to surgery for hemoglobin 7.4. 03/02/18 s/p ex lap with placement of drains by Dr. Hills. Febrile before surgery. WBC up post-op. Wound cx growing GPC, GNR, GPR. Continue Zosyn Remains on TPN, reduce K+. Good urine output. Output per NG down. Continued tachycardia. Continue IVF and treat pain. Output significantly higher than input, weight down, ongoing tachycardia--> 1 L fluid bolus this a.m. and continue normal saline at 100 mL per hour. Anticipate ongoing need for fluids to match fluid losses. 1 unit PRBCs given 03/01. Total of 4 units transfused Ferrlecit dose given 02/25, plan to repeat dose 03/04. Discussed with nursing who provide supplemental history; mother updated. Prognosis guarded. 03/03/18 s/p ex lap 03/01 with placement of drains by Dr. Hills. Afebrile and WBC down. Wound cx growing GPC, GNR, GPR. Continue Zosyn and fluconazole Continue TPN, K+ improved. Good urine output. Output per NG and ostomy down since 03/01 ex lap. Continued tachycardia. Continue IVF and treat pain. ? whether anxious. Trial of Ativan Anticipate ongoing need for fluids to match fluid losses. 1 unit PRBCs given 03/01. Total of 4 units transfused Ferrlecit dose given 02/25, plan to repeat dose 03/04. Discussed with nursing who provide supplemental history; mother updated. Prognosis guarded. 03/04/18 s/p ex lap 03/01 with placement of drains by Dr. Hills. Fever and WBC up slightly. Wound cx growing e coli, sensitive to Zosyn. Fluconazole. Check CXR Continue TPN, K+ improved. Good urine output. Output per NG and ostomy down since 03/01 ex lap. Continued tachycardia. Hold LR as patient with trace edema. Start fentanyl patch for pain. He got 28 mg iv morphine yesterday. Starting fentanyl at 12mcg d /t possible interaction with Fluconazole. 1 unit PRBCs given 03/01. Total of 4 units transfused Ferrlicit dose given 02/25, plan to repeat dose 03/04. Discussed with nursing who provide supplemental history. Encourage activity. Prognosis guarded 03/05/18 s/p ex lap 03/01 with placement of drains by Dr. Hills. Wound VAC. Fever. WBC down slightly. Wound cx growing e coli, sensitive to Zosyn. Fluconazole. Check CXR. Continue TPN, decrease Mg. Good urine output. Output per NG up yesterday. Continued tachycardia. Holding LR as patient with trace edema. Appears more comfortable with fentanyl patch for pain. Platelets trending up. Check inflammatory markers. If continued fever, consider repeating CT Encourage activity. 03/06/18 Temp elevations to 100.5 - 101.7. Persistent tachycardia in 130s. BP 100's. WBC with gradual trend down to 17.9 - was 25.0 on 03/02. Platelets trending up to 971 (was 407 on 03/02). Electrolytes and renal status stable - on TPN. Will continue with Zosyn and Diflucan for antimicrobial coverage. Continue with wound vac and drains. CT scan of ab/pelvis to exclude occult abscess formation. Encourage continued activities. 03/07/18 WBC with gradual trend down to 14.3 - was 17.9 on yesterday. Platelets elevated at 961 (was 971 yesterday). Hemoglobin persistently low at 7.6; with continued tachycardia will give 1 unit of pRBC. Electrolytes and renal status stable - on TPN. Will continue with Zosyn for antimicrobial coverage; Dr Gomez added Vancomycin and increased Diflucan to 200mg daily. Continue with wound vac and drains. CT scan of ab/pelvis showed possible new abscess formation in the suprapubic region and omental area. Encourage continued activities. 03/08/18 WBC with increase back to 17.1. HGB increased to 8.2 post transfusion yesterday. Pharm recommended changing Zosyn to Meropenem - did agree. Continue vancomycin and Diflucan. Will continue with TPN for nutritional support - NS bolus of 500cc to help with tachycardia. Continue with pain control. 03/09/18 Temp elevations continue. WBC with decrease to 15.6, but increased bands noted. Renal status and electrolytes stable. Continues of Meropenem, vancomycin, and Diflucan for coverage. Dr Gomez plan repeating CT scan with contrast (though NG) tomorrow to check for bowel function and further abscesses. TPN for nutritional and volume support. Continue with MS for pain, add Aspercreme for muscle discomfort. 03/10/18 Temp elevations continue. WBC 16.4. Renal status and electrolytes stable. Little change in overall status. CT ab/pelvis shown abscess with drain in place, however abscess has increased in size. Sx working to have drains flushed. Continues on Meropenem, vancomycin, and Diflucan for coverage. TPN for nutritional and volume support. Will give 500cc NS bolus to help improve BP. 03/11/18 Temp elevations continue. WBC trended down to 14. Renal status and electrolytes stable. Little change in overall status. CT ab/pelvis shown abscess with drain in place, however abscess has increased in size. Sx working to have drains flushed. Continues on Meropenem, vancomycin, and Diflucan for coverage. TPN for nutritional and volume support. Repeat 500cc NS bolus today and add metoprolol for tachycardia as BP allows. Continue pain control. 03/12/18 Temp elevations continue. WBC trended down to 12.7. Renal status and electrolytes stable. Little change in overall status. CT ab/pelvis shown abscess with drain in place, however abscess has increased in size per CT 03/10/18. Sx working to have drains flushed. Continues on Meropenem, vancomycin, and Diflucan for coverage. TPN for nutritional and volume support. Added q12hr metoprolol in attempt to control heart rate, only marginally working and could be titrated if blood pressure allows. Continue pain control. 03/13/18 WBC with trend down, but still with tachycardia and intermittent temp elevations. Continues on Meropenem, vancomycin, and Diflucan for coverage. TPN for nutritional and volume support. Continue pain control. 03/14/18 WBC with elevation to 13.4. CT showing decrease size of abscess. Continues on Meropenem, vancomycin, and Diflucan for coverage. TPN for nutritional and volume support. Electrolytes and renal status stable. Continue pain control. Continue activities as able. 03/15/18 WBC with stable at 13.7. Platelets with decrease to 594. Less temp elevations seen. Continues on Meropenem, vancomycin, and Diflucan for coverage. TPN for nutritional and volume support. Electrolytes and renal status stable. Dr Gomez trying NG clamping and clear liquids. Continue pain control. Continue activities as able. 03/16/18 WBC with decrease to 11.7. Platelets with decrease to 546. Less temp elevations seen. Continues on Meropenem, vancomycin, and Diflucan for coverage. TPN for nutritional and volume support. Electrolytes and renal status stable. NG removed; clear liquids. 03/17/18 WBC with decrease to 10.1. Platelets with decrease to 529. Less temp elevations seen. Evaluated by Dr Ac today - vancomycin stopped and changed meropenem to Zosyn and continued Diflucan. TPN for nutritional and volume support. Electrolytes and renal status stable. Advanced to regular diet but oral drive low. HGB variable, but trend down. Will give 1 unit pRBC due to continued tachycardia in post op patent. Continue pain control. Continue activities as able - walking in halls with nursing help. 03/18/2018 White blood cell count today is up mildly to 12.1. Bands are up to 7 from one yesterday. He has been afebrile over 24 hours. Hemoglobin improved to 9.5 up from 7.1 yesterday. He received 1 unit of blood yesterday. He does have mildly elevated phosphorus and magnesium. Discussed with pharmacy. The rate of his TPN will be decreased. Will recheck phosphorus and magnesium tomorrow. Repeat INR tomorrow. Repeat CBC and renal panel tomorrow. Advance diet as tolerated. Will try oral supplements. Continue ambulation with assist. The patient continues to have persistent tachycardia this hospital course, but rate is slowly improving. No real change with transfusion of 1 unit of blood. Recheck C-reactive protein tomorrow Discussed case with CCU nursing. We'll check a vitamin B-12 tomorrow regarding borderline low B-12 level Greater than 40 minutes of critical care time spent seeing and evaluating the patient in determining care plan. 03/19/2018 White blood cell count continues to increase and is 16.5 today. Bands are 6 down from 7 yesterday. Hemoglobin has improved to 10.9. Patient remains afebrile. C-reactive protein has decreased from 181 down to 75. We'll continue on fluconazole and Zosyn for intra-abdominal abscesses. Advance diet as tolerated. Continue TPN for now, he will receive a customized formula with no phosphorus and decreased magnesium and calcium. Continue ambulation with assist Recheck CBC with manual differential, renal panel, magnesium tomorrow. 03/20/2018 White blood cell count continues to increase and is 18.8 today from 16.8 yesterday. Bands are 1 down from 6 yesterday. Temperature currently is 99.9. Dr. Gomez has ordered CT abdomen with contrast. The patient is currently on day 4 of Zosyn. He has been on fluconazole since at least February 23. Meropenem was discontinued March 18. Continue TPN for now, he is on a customized formula. Continue ambulation with assist Recheck CBC with manual differential, renal panel, magnesium tomorrow. Discussed with the patient's nurse and family. 03/21/18 CT abdomen with contrast obtained yesterday and shows a decrease in size of the intra-abdominal abscesses with no new abscess formation. White count is essentially stable from yesterday. The patient remains afebrile. He continues on fluconazole which was started February 23 and Zosyn which was started March 17. Prior to being on Zosyn, he was on meropenem but this was discontinued March 18 He continues to have tachycardia, but urine output remains stable. Fluid boluses in the past have not improved tachycardia. He does not appear to be in pain or anxious at this time. He is on fentanyl patch for pain and has when necessary medication for pain and anxiety. Will check TSH and reflex T4. 03/22/18 Stable, TSH normal. Mcdermott catheter discontinued. Pain well-controlled; taking by mouth well. 03/23/18 Oral intake improving, has been on a regular diet for approximately 5 days now and is eating meals well. Will discuss tapering TPN off with surgery. Renal function, hemoglobin, and blood pressure all stable. Persistent tachycardia, patient tolerates well-does not respond to additional fluids and patient does not appear to be in pain. Continue fluconazole and Zosyn-antibiotics under the management of Dr. Ac. 03/24/18 Discontinuing TPN today; stable to transfer out of ICU. Otherwise stable.
[2018-03-24] MEDS: FAT EMULSION 20% 250 ML IV SCH (15:59)
[2018-03-24] MEDS: FLUCONAZOLE PB 200 MG/100 ML BAG IV SCH (17:00)
[2018-03-24] MEDS ORDERED: ACETAMINOPHEN 160mg/5ml ORAL LIQUID PO PRN (19:59)
--- NOTE | 2018-03-24 20:14 | Progress Note ---
DATE OF VISIT 03/24/2018 REASON FOR VISIT Covering surgical care for Dr. Gomez. SUBJECTIVE Arslan has been doing fairly well. He has been eating more and the nursing staff says that he is walking well. OBJECTIVE VITAL SIGNS: Afebrile. Pulse 134, blood pressure 102/71, respiratory rate 18, oxygen saturation 100% on room air. GENERAL: The patient is awake and alert. He is in no acute distress. ABDOMEN: Soft, minimally tender. His wound VAC remains in place. Ostomy has soft brown output. His drains have essentially clear liquid in the drainage bulbs. IMPRESSION Status post exploratory laparotomies x 2 with near-total colectomy and end colostomy and Mendoza's pouch due to colonic rupture with feculent peritonitis. The patient remains tachycardic but clinically showing signs of improvement. PLAN 1. Drain flushes were decreased in amount given that fluid was leaking around the drain tubing. 2. Continue drains for now. 3. Dr. Tana cA had recommended repeat CT scan in a couple of weeks in her consultation on 03/17/2018. I think drains should remain in place until this point in time. 4. Until the question of return to the operating room is fully eliminated I would like to hold on delayed primary closure of his midline incision. 5. Continue other care. SYLVAIN
[2018-03-25] MEDS: PIPERACILLIN/TAZOBACTAM 3.375 GM in D5W 100 ML IV SCH ×5 (00:59→21:00)
[2018-03-25] MEDS: NS FLUSH BAG 500ml IV PRN (01:00)
[2018-03-25] MEDS: PANTOPRAZOLE 40 MG TABLET PO SCH (06:13)
[2018-03-25] MEDS: ENOXAPARIN 40 MG/0.4 ML INJECTION SQ SCH (10:10)
[2018-03-25] MEDS ORDERED: ALTEPLASE (Cathflo*) 2mg INJECTION IV ONE ×2 (11:50→11:54)
[2018-03-25] MEDS: FLUCONAZOLE PB 200 MG/100 ML BAG IV SCH (16:43)
--- NOTE | 2018-03-25 17:15 | Progress Note ---
- Date 03/25/18 Subjective: Arslan was up in a chair watching television when seen. He denied dyspnea but complained of abdominal pain. Nursing reports that he ate 100% of his lunch today but did not eat breakfast. He expressed interest in watching the ducks and asked that the windows be opened. He slept well and no fever was reported by nursing. Objective Vital signs: Temperature 96.3 F L 03/25/18 16:00 Pulse Rate 156 H 03/25/18 16:00 Respiratory Rate 20 03/25/18 16:00 Blood Pressure 107/68 03/25/18 16:00 Pulse Oximetry 98 - RA 03/25/18 16:00 I/O 1411/2175 NAD, alert, soft-spoken Conjunctiva clear, sclera anicteric Respirations nonlabored, diminished inspiratory effort, breath sounds clear Regular rhythm, S1-S2 Abdomen soft, mild generalized tenderness, bowel sounds present Extremities without edema Rhythm: Sinus Tachycardia Height/Weight/BMI: Height 1.75 m Weight 60.2 kg Body Mass Index 22.5 Results - Labs CBC & Chem 7: 03/24/18 03:59 03/25/18 08:10 Labs: Cortisol pending Microbiology Results: Microbiology 03/01/18 18:56 Abdomen, Left Upper Gram Stain - Final 03/01/18 18:56 Abdomen, Left Upper Surgical Culture - Final Escherichia coli Anaerobic Gram-Negative Bhanu Anaerobic Gram-Positive Cocci Assessment and Plan (1) Megacolon Problem details: Toxic megacolon Current visit: Yes Status: Resolved (2) Perforation of colon Problem details: Perforation of the splenic flexure due to ischemic changes Current visit: Yes Status: Acute Assessment and Plan: Assessment 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 On meropenem 03/08-03/17, Vancomycin 03/07-03/17; Zosyn initiated on March 18. Tachycardia -persistent during the hospital course Severe constipation-resolved Severe sepsis -resolved Fever Severe iron deficiency anemia-received IV iron 02/25/2018 and 03/04/2018. He has had a total of 6 units of blood, he received his last unit 03/17/2018 Autism Dental problems Hypophosphatemia-resolved Hyperphosphatemia-on TPN Hypermagnesemia-on TPN-resolved Hypokalemia (Not POA) -resolved LLL atelectasis Acute kidney injury with oliguria-postop -resolved Hyperkalemia (Not POA) -resolved Thrombocytosis (Not POA) Mild elevation of INR of 1.39 on 03/19/2018 Plan Doing well, TPN discontinued yesterday. Blood sugars stable following discontinuation of TPN. Accu-Cheks DC'd. Dr. Gomez indicated that patient may be ready for removal of the wound VAC and delayed primary closure of midline incision as early as next week yesterday. Continue Zosyn and fluconazole, Dr. Ac recommended at least 2 weeks antibiotics when seen 03/[address] abdomen/pelvis prior to discontinuation to make sure abscesses had resolved. Persistent sinus tachycardia-cortisol pending. Repeat labs on Tuesday. DVT Prophylaxis: Lovenox GI Prophylaxis: Protonix Resuscitation Status: Full Code - Physician Narrative Narrative: Date: 03/25/18 Time: 1712 Hospital Course Summary Disclaimer: The visit summary below is not to be considered part of the above Progress Note. Hospital Course: 02/20/18 Admit, CCU. Bowel rest - NPO. Cont IVF - 1/2 NS with Na of 144. Consult Dr. Gomez for mgt. Sx management with Protonix, morphine, Zofran. Cont IVF for tachycardia; sepsis. Repeat lactate. Cont Zosyn for bowel coverage. Follow BC results. Iron w/u in progress. Type & screen ordered. D/W with Dr. Stevens and RN. 02/22/18 Gastrografin enema 02/21 with copious stool resulting. However, still with stool in rectal vault. Deferring further management to surgery team, await recs. Cont Zosyn given bandemia, tachycardia and concern for toxic megacolon. 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 Clinically deteriorating. Going for surgery for perforation/free air. Near total colectomy performed. Became hypotensive, tachycardic with rates into 180s. Aggressively fluid resuscitated. 02/24/18 UOP, tachycardia improved. Cont abx. Initiate TPN. Monitoring for return of bowel fxn. 02/25/18 Given Kphos Transfused another 1U PRBCs. Stopped LR. Surgery to trial clamping NGT. Intermittently febrile- rectal Tylenol. 02/26/18 Did have fever overnight. Has tolerated NGT clamping. No O2 requirements. No N/V /CP. Hasn't been able to perform IS very well. 02/27/18 Remains on TPN, tolerating limited oral liquids earlier today however resultant emesis has required resumption of NG suction. Good output per ostomy; 2400 mL output reported during prior 24-hour period. Hemoglobin drifting down, ongoing hypokalemia-post being reassessed this afternoon. Potassium increased and TPN but may require supplemental boluses due to potassium lost in stool and emesis. Persistent tachycardia-may require additional blood transfusion. Remains on Zosyn for peritonitis; chest x-ray with pleural effusion but no evidence of pneumonia. May require repeat CT abdomen/pelvis to exclude intra-abdominal abscess. 02/28/18 Remains on TPN, electrolytes stable. Good urine output per ostomy but continues to have high volume output per NG. Output significantly higher than input, weight down, ongoing tachycardia--> 1 L fluid bolus tonight. Anticipate ongoing need for fluids to match fluid losses. CT abdomen/pelvis discussed with radiology this evening and subsequently with Dr. Hills; will review further with radiology tomorrow to determine if drainage can be performed of the subphrenic abscess percutaneously or if surgical drainage/washout will be needed due to presence of multiple smaller fluid collections suggestive of early abscesses. Dr. Hills notified patient 's parents of findings. Hemoglobin continues to drift down very slowly, may be slightly hemoconcentrated at present. Type and screen in a.m. Anticipating transfusion in the next 1-2 days. 03/01/18 OP Day - Exploratory laparotomy, drainage of multiple intraabdominal abscesses, fecal disimpaction, intraoperative flexible proctoscopy. Subdiaphragmatic abscess and left upper quadrant-discussed with radiology and message subsequently relayed to Dr. Hills regarding potential risk of percutaneous drainage. Patient tenably scheduled to return to the operating room later today. Several very small extensive gas in the pelvis without clear room enhancement to suggest abscess, may simply be postoperative change. Remains on TPN, electrolytes stable. Good urine output per ostomy but continues to have high volume output per NG. Output significantly higher than input, weight down, ongoing tachycardia--> 1 L fluid bolus this a.m. and continue normal saline at 100 mL per hour. 2 units PRBCs matched preoperatively; one being given prior to surgery for hemoglobin 7.4. 03/02/18 s/p ex lap with placement of drains by Dr. Hills. Febrile before surgery. WBC up post-op. Wound cx growing GPC, GNR, GPR. Continue Zosyn Remains on TPN, reduce K+. Good urine output. Output per NG down. Continued tachycardia. Continue IVF and treat pain. Output significantly higher than input, weight down, ongoing tachycardia--> 1 L fluid bolus this a.m. and continue normal saline at 100 mL per hour. Anticipate ongoing need for fluids to match fluid losses. 1 unit PRBCs given 03/01. Total of 4 units transfused Ferrlecit dose given 02/25, plan to repeat dose 03/04. Discussed with nursing who provide supplemental history; mother updated. Prognosis guarded. 03/03/18 s/p ex lap 03/01 with placement of drains by Dr. Hills. Afebrile and WBC down. Wound cx growing GPC, GNR, GPR. Continue Zosyn and fluconazole Continue TPN, K+ improved. Good urine output. Output per NG and ostomy down since 03/01 ex lap. Continued tachycardia. Continue IVF and treat pain. ? whether anxious. Trial of Ativan Anticipate ongoing need for fluids to match fluid losses. 1 unit PRBCs given 03/01. Total of 4 units transfused Ferrlecit dose given 02/25, plan to repeat dose 03/04. Discussed with nursing who provide supplemental history; mother updated. Prognosis guarded. 03/04/18 s/p ex lap 03/01 with placement of drains by Dr. Hills. Fever and WBC up slightly. Wound cx growing e coli, sensitive to Zosyn. Fluconazole. Check CXR Continue TPN, K+ improved. Good urine output. Output per NG and ostomy down since 03/01 ex lap. Continued tachycardia. Hold LR as patient with trace edema. Start fentanyl patch for pain. He got 28 mg iv morphine yesterday. Starting fentanyl at 12mcg d /t possible interaction with Fluconazole. 1 unit PRBCs given 03/01. Total of 4 units transfused Ferrlicit dose given 02/25, plan to repeat dose 03/04. Discussed with nursing who provide supplemental history. Encourage activity. Prognosis guarded 03/05/18 s/p ex lap 03/01 with placement of drains by Dr. Hills. Wound VAC. Fever. WBC down slightly. Wound cx growing e coli, sensitive to Zosyn. Fluconazole. Check CXR. Continue TPN, decrease Mg. Good urine output. Output per NG up yesterday. Continued tachycardia. Holding LR as patient with trace edema. Appears more comfortable with fentanyl patch for pain. Platelets trending up. Check inflammatory markers. If continued fever, consider repeating CT Encourage activity. 03/06/18 Temp elevations to 100.5 - 101.7. Persistent tachycardia in 130s. BP 100's. WBC with gradual trend down to 17.9 - was 25.0 on 03/02. Platelets trending up to 971 (was 407 on 03/02). Electrolytes and renal status stable - on TPN. Will continue with Zosyn and Diflucan for antimicrobial coverage. Continue with wound vac and drains. CT scan of ab/pelvis to exclude occult abscess formation. Encourage continued activities. 03/07/18 WBC with gradual trend down to 14.3 - was 17.9 on yesterday. Platelets elevated at 961 (was 971 yesterday). Hemoglobin persistently low at 7.6; with continued tachycardia will give 1 unit of pRBC. Electrolytes and renal status stable - on TPN. Will continue with Zosyn for antimicrobial coverage; Dr Gomez added Vancomycin and increased Diflucan to 200mg daily. Continue with wound vac and drains. CT scan of ab/pelvis showed possible new abscess formation in the suprapubic region and omental area. Encourage continued activities. 03/08/18 WBC with increase back to 17.1. HGB increased to 8.2 post transfusion yesterday. Pharm recommended changing Zosyn to Meropenem - did agree. Continue vancomycin and Diflucan. Will continue with TPN for nutritional support - NS bolus of 500cc to help with tachycardia. Continue with pain control. 03/09/18 Temp elevations continue. WBC with decrease to 15.6, but increased bands noted. Renal status and electrolytes stable. Continues of Meropenem, vancomycin, and Diflucan for coverage. Dr Gomez plan repeating CT scan with contrast (though NG) tomorrow to check for bowel function and further abscesses. TPN for nutritional and volume support. Continue with MS for pain, add Aspercreme for muscle discomfort. 03/10/18 Temp elevations continue. WBC 16.4. Renal status and electrolytes stable. Little change in overall status. CT ab/pelvis shown abscess with drain in place, however abscess has increased in size. Sx working to have drains flushed. Continues on Meropenem, vancomycin, and Diflucan for coverage. TPN for nutritional and volume support. Will give 500cc NS bolus to help improve BP. 03/11/18 Temp elevations continue. WBC trended down to 14. Renal status and electrolytes stable. Little change in overall status. CT ab/pelvis shown abscess with drain in place, however abscess has increased in size. Sx working to have drains flushed. Continues on Meropenem, vancomycin, and Diflucan for coverage. TPN for nutritional and volume support. Repeat 500cc NS bolus today and add metoprolol for tachycardia as BP allows. Continue pain control. 03/12/18 Temp elevations continue. WBC trended down to 12.7. Renal status and electrolytes stable. Little change in overall status. CT ab/pelvis shown abscess with drain in place, however abscess has increased in size per CT 03/10/18. Sx working to have drains flushed. Continues on Meropenem, vancomycin, and Diflucan for coverage. TPN for nutritional and volume support. Added q12hr metoprolol in attempt to control heart rate, only marginally working and could be titrated if blood pressure allows. Continue pain control. 03/13/18 WBC with trend down, but still with tachycardia and intermittent temp elevations. Continues on Meropenem, vancomycin, and Diflucan for coverage. TPN for nutritional and volume support. Continue pain control. 03/14/18 WBC with elevation to 13.4. CT showing decrease size of abscess. Continues on Meropenem, vancomycin, and Diflucan for coverage. TPN for nutritional and volume support. Electrolytes and renal status stable. Continue pain control. Continue activities as able. 03/15/18 WBC with stable at 13.7. Platelets with decrease to 594. Less temp elevations seen. Continues on Meropenem, vancomycin, and Diflucan for coverage. TPN for nutritional and volume support. Electrolytes and renal status stable. Dr Gomez trying NG clamping and clear liquids. Continue pain control. Continue activities as able. 03/16/18 WBC with decrease to 11.7. Platelets with decrease to 546. Less temp elevations seen. Continues on Meropenem, vancomycin, and Diflucan for coverage. TPN for nutritional and volume support. Electrolytes and renal status stable. NG removed; clear liquids. 03/17/18 WBC with decrease to 10.1. Platelets with decrease to 529. Less temp elevations seen. Evaluated by Dr Ac today - vancomycin stopped and changed meropenem to Zosyn and continued Diflucan. TPN for nutritional and volume support. Electrolytes and renal status stable. Advanced to regular diet but oral drive low. HGB variable, but trend down. Will give 1 unit pRBC due to continued tachycardia in post op patent. Continue pain control. Continue activities as able - walking in halls with nursing help. 03/18/2018 White blood cell count today is up mildly to 12.1. Bands are up to 7 from one yesterday. He has been afebrile over 24 hours. Hemoglobin improved to 9.5 up from 7.1 yesterday. He received 1 unit of blood yesterday. He does have mildly elevated phosphorus and magnesium. Discussed with pharmacy. The rate of his TPN will be decreased. Will recheck phosphorus and magnesium tomorrow. Repeat INR tomorrow. Repeat CBC and renal panel tomorrow. Advance diet as tolerated. Will try oral supplements. Continue ambulation with assist. The patient continues to have persistent tachycardia this hospital course, but rate is slowly improving. No real change with transfusion of 1 unit of blood. Recheck C-reactive protein tomorrow Discussed case with CCU nursing. We'll check a vitamin B-12 tomorrow regarding borderline low B-12 level Greater than 40 minutes of critical care time spent seeing and evaluating the patient in determining care plan. 03/19/2018 White blood cell count continues to increase and is 16.5 today. Bands are 6 down from 7 yesterday. Hemoglobin has improved to 10.9. Patient remains afebrile. C-reactive protein has decreased from 181 down to 75. We'll continue on fluconazole and Zosyn for intra-abdominal abscesses. Advance diet as tolerated. Continue TPN for now, he will receive a customized formula with no phosphorus and decreased magnesium and calcium. Continue ambulation with assist Recheck CBC with manual differential, renal panel, magnesium tomorrow. 03/20/2018 White blood cell count continues to increase and is 18.8 today from 16.8 yesterday. Bands are 1 down from 6 yesterday. Temperature currently is 99.9. Dr. Gomez has ordered CT abdomen with contrast. The patient is currently on day 4 of Zosyn. He has been on fluconazole since at least February 23. Meropenem was discontinued March 18. Continue TPN for now, he is on a customized formula. Continue ambulation with assist Recheck CBC with manual differential, renal panel, magnesium tomorrow. Discussed with the patient's nurse and family. 03/21/18 CT abdomen with contrast obtained yesterday and shows a decrease in size of the intra-abdominal abscesses with no new abscess formation. White count is essentially stable from yesterday. The patient remains afebrile. He continues on fluconazole which was started February 23 and Zosyn which was started March 17. Prior to being on Zosyn, he was on meropenem but this was discontinued March 18 He continues to have tachycardia, but urine output remains stable. Fluid boluses in the past have not improved tachycardia. He does not appear to be in pain or anxious at this time. He is on fentanyl patch for pain and has when necessary medication for pain and anxiety. Will check TSH and reflex T4. 03/22/18 Stable, TSH normal. Mcdermott catheter discontinued. Pain well-controlled; taking by mouth well. 03/23/18 Oral intake improving, has been on a regular diet for approximately 5 days now and is eating meals well. Will discuss tapering TPN off with surgery. Renal function, hemoglobin, and blood pressure all stable. Persistent tachycardia, patient tolerates well-does not respond to additional fluids and patient does not appear to be in pain. Continue fluconazole and Zosyn-antibiotics under the management of Dr. Ac. 03/24/18 Discontinuing TPN today; stable to transfer out of ICU. Otherwise stable. 03/25/18 Doing well, TPN discontinued yesterday. Blood sugars stable following discontinuation of TPN. Accu-Cheks DC'd.
--- NOTE | 2018-03-25 18:17 | Progress Note ---
DATE 03/25/2018 HISTORY OF PRESENT ILLNESS The patient is doing well today. He does not eat much breakfast but is eating lunch and dinner well. He has been up ambulating today. He is having good output from the colostomy stoma at the right lower quadrant. The patient has been moved from the intensive care unit out to a room on the surgical unit. PHYSICAL EXAMINATION VITAL SIGNS: Temperature is 98.7 degrees Fahrenheit oral. Pulse is 132. Respiratory rate is 14. Blood pressure is 112/66. Oxygen saturation is 97% on room air. ABDOMEN: The patient does have a wound VAC in place at the midline abdominal incision. There is stool in the colostomy bag at the right lower quadrant. The Jose-Almazan closed suction drain sites look good. Electrolytes are normal today. IMPRESSION Status post exploratory laparotomy x 2 with near-total colectomy and end colostomy formation and Mendoza's pouch formation due to colonic rupture with fecal peritonitis. The patient does have tachycardia which has been a chronic finding. PLAN Continue current care on the surgical unit. SYLVAIN
[2018-03-25] MEDS ORDERED: FALL RISK - PHARMACY CONSULT MC ONE (18:29)
[2018-03-25] MEDS: SALINE FLUSH 10ml SYRINGE IVF PRN (21:00)
[2018-03-26] MEDS: ACETAMINOPHEN 650 MG/20.3 ML SOLUTION PO PRN ×2 (00:25→20:32)
[2018-03-26] MEDS: SALINE FLUSH 10ml SYRINGE IVF PRN ×6 (02:09→21:51)
[2018-03-26] MEDS: PIPERACILLIN/TAZOBACTAM 3.375 GM in D5W 100 ML IV SCH ×4 (02:09→21:01)
[2018-03-26] MEDS: NS FLUSH BAG 500ml IV PRN (02:10)
[2018-03-26] MEDS: PANTOPRAZOLE 40 MG TABLET PO SCH (06:01)
[2018-03-26] MEDS: ENOXAPARIN 40 MG/0.4 ML INJECTION SQ SCH (09:37)
--- NOTE | 2018-03-26 14:59 | Progress Note ---
- Date 03/26/18 Subjective: Arslan was up in chair when seen; he refused breakfast and initially refused to walk this morning although later walked when an ICU nurse visited. No output reported by nursing from 3 left-sided CLIFTON drains and nursing reports that patient is uncomfortable when they're irrigated. Arslan denies dyspnea or lightheadedness. Objective Vital signs: Temperature 97.0 F 03/26/18 12:30 Pulse Rate 130 H 03/26/18 12:30 Respiratory Rate 18 03/26/18 12:30 Blood Pressure 104/68 03/26/18 12:30 Pulse Oximetry 94 03/26/18 12:30 I/O 1220/303; oral intake yesterday 720 mL NAD, alert, vague responses to questions-typically answers yes no only Conjunctiva clear, sclera anicteric Respirations nonlabored, fair airflow, breath sounds clear Regular rhythm, S1-S2, tachycardic Abdomen soft, mild generalized tenderness, bowel sounds present; 5 CLIFTON drains present-3 on the left are all empty Extremities without edema Rhythm: Sinus Tachycardia Height/Weight/BMI: Height 1.75 m Weight 58.9 kg Body Mass Index 22.5 Results - Labs CBC & Chem 7: 03/24/18 03:59 03/25/18 08:10 Microbiology Results: Microbiology 03/01/18 18:56 Abdomen, Left Upper Gram Stain - Final 03/01/18 18:56 Abdomen, Left Upper Surgical Culture - Final Escherichia coli Anaerobic Gram-Negative Bhanu Anaerobic Gram-Positive Cocci Assessment and Plan (1) Megacolon Problem details: Toxic megacolon Current visit: Yes Status: Resolved (2) Perforation of colon Problem details: Perforation of the splenic flexure due to ischemic changes Current visit: Yes Status: Acute Assessment and Plan: Assessment 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 On meropenem 03/08-03/17, Vancomycin 03/07-03/17; Zosyn initiated on March 18. Tachycardia -persistent during the hospital course Severe constipation-resolved Severe sepsis -resolved Fever Severe iron deficiency anemia-received IV iron 02/25/2018 and 03/04/2018. He has had a total of 6 units of blood, he received his last unit 03/17/2018 Autism Dental problems Hypophosphatemia-resolved Hyperphosphatemia-on TPN Hypermagnesemia-on TPN-resolved Hypokalemia (Not POA) -resolved LLL atelectasis Acute kidney injury with oliguria-postop -resolved Hyperkalemia (Not POA) -resolved Thrombocytosis (Not POA) Mild elevation of INR of 1.39 on 03/19/2018 Plan Doing well, TPN discontinued 03/24. Dr. Gomez indicated that patient may be ready for removal of the wound VAC and delayed primary closure of midline incision as early as next week yesterday. Dr. Hills indicated preference to repeat CT (tentatively scheduled for around 03/30) before primary closure performed. Continue Zosyn and fluconazole, Dr. Ac recommended at least 2 weeks antibiotics when seen 03/[address] abdomen/pelvis prior to discontinuation to make sure abscesses had resolved. Persistent sinus tachycardia-cortisol pending. Repeat labs on Tuesday. DVT Prophylaxis: Lovenox GI Prophylaxis: Protonix Resuscitation Status: Full Code - Physician Narrative Narrative: Date: 03/26/18 Time: 1455 Hospital Course Summary Disclaimer: The visit summary below is not to be considered part of the above Progress Note. Hospital Course: 02/20/18 Admit, CCU. Bowel rest - NPO. Cont IVF - 1/2 NS with Na of 144. Consult Dr. Gomez for mgt. Sx management with Protonix, morphine, Zofran. Cont IVF for tachycardia; sepsis. Repeat lactate. Cont Zosyn for bowel coverage. Follow BC results. Iron w/u in progress. Type & screen ordered. D/W with Dr. Stevens and RN. 02/22/18 Gastrografin enema 02/21 with copious stool resulting. However, still with stool in rectal vault. Deferring further management to surgery team, await recs. Cont Zosyn given bandemia, tachycardia and concern for toxic megacolon. 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 Clinically deteriorating. Going for surgery for perforation/free air. Near total colectomy performed. Became hypotensive, tachycardic with rates into 180s. Aggressively fluid resuscitated. 02/24/18 UOP, tachycardia improved. Cont abx. Initiate TPN. Monitoring for return of bowel fxn. 02/25/18 Given Kphos Transfused another 1U PRBCs. Stopped LR. Surgery to trial clamping NGT. Intermittently febrile- rectal Tylenol. 02/26/18 Did have fever overnight. Has tolerated NGT clamping. No O2 requirements. No N/V /CP. Hasn't been able to perform IS very well. 02/27/18 Remains on TPN, tolerating limited oral liquids earlier today however resultant emesis has required resumption of NG suction. Good output per ostomy; 2400 mL output reported during prior 24-hour period. Hemoglobin drifting down, ongoing hypokalemia-post being reassessed this afternoon. Potassium increased and TPN but may require supplemental boluses due to potassium lost in stool and emesis. Persistent tachycardia-may require additional blood transfusion. Remains on Zosyn for peritonitis; chest x-ray with pleural effusion but no evidence of pneumonia. May require repeat CT abdomen/pelvis to exclude intra-abdominal abscess. 02/28/18 Remains on TPN, electrolytes stable. Good urine output per ostomy but continues to have high volume output per NG. Output significantly higher than input, weight down, ongoing tachycardia--> 1 L fluid bolus tonight. Anticipate ongoing need for fluids to match fluid losses. CT abdomen/pelvis discussed with radiology this evening and subsequently with Dr. Hills; will review further with radiology tomorrow to determine if drainage can be performed of the subphrenic abscess percutaneously or if surgical drainage/washout will be needed due to presence of multiple smaller fluid collections suggestive of early abscesses. Dr. Hills notified patient 's parents of findings. Hemoglobin continues to drift down very slowly, may be slightly hemoconcentrated at present. Type and screen in a.m. Anticipating transfusion in the next 1-2 days. 03/01/18 OP Day - Exploratory laparotomy, drainage of multiple intraabdominal abscesses, fecal disimpaction, intraoperative flexible proctoscopy. Subdiaphragmatic abscess and left upper quadrant-discussed with radiology and message subsequently relayed to Dr. Hills regarding potential risk of percutaneous drainage. Patient tenably scheduled to return to the operating room later today. Several very small extensive gas in the pelvis without clear room enhancement to suggest abscess, may simply be postoperative change. Remains on TPN, electrolytes stable. Good urine output per ostomy but continues to have high volume output per NG. Output significantly higher than input, weight down, ongoing tachycardia--> 1 L fluid bolus this a.m. and continue normal saline at 100 mL per hour. 2 units PRBCs matched preoperatively; one being given prior to surgery for hemoglobin 7.4. 03/02/18 s/p ex lap with placement of drains by Dr. iHlls. Febrile before surgery. WBC up post-op. Wound cx growing GPC, GNR, GPR. Continue Zosyn Remains on TPN, reduce K+. Good urine output. Output per NG down. Continued tachycardia. Continue IVF and treat pain. Output significantly higher than input, weight down, ongoing tachycardia--> 1 L fluid bolus this a.m. and continue normal saline at 100 mL per hour. Anticipate ongoing need for fluids to match fluid losses. 1 unit PRBCs given 03/01. Total of 4 units transfused Ferrlecit dose given 02/25, plan to repeat dose 03/04. Discussed with nursing who provide supplemental history; mother updated. Prognosis guarded. 03/03/18 s/p ex lap 03/01 with placement of drains by Dr. Hills. Afebrile and WBC down. Wound cx growing GPC, GNR, GPR. Continue Zosyn and fluconazole Continue TPN, K+ improved. Good urine output. Output per NG and ostomy down since 03/01 ex lap. Continued tachycardia. Continue IVF and treat pain. ? whether anxious. Trial of Ativan Anticipate ongoing need for fluids to match fluid losses. 1 unit PRBCs given 03/01. Total of 4 units transfused Ferrlecit dose given 02/25, plan to repeat dose 03/04. Discussed with nursing who provide supplemental history; mother updated. Prognosis guarded. 03/04/18 s/p ex lap 03/01 with placement of drains by Dr. Hills. Fever and WBC up slightly. Wound cx growing e coli, sensitive to Zosyn. Fluconazole. Check CXR Continue TPN, K+ improved. Good urine output. Output per NG and ostomy down since 03/01 ex lap. Continued tachycardia. Hold LR as patient with trace edema. Start fentanyl patch for pain. He got 28 mg iv morphine yesterday. Starting fentanyl at 12mcg d /t possible interaction with Fluconazole. 1 unit PRBCs given 03/01. Total of 4 units transfused Ferrlicit dose given 02/25, plan to repeat dose 03/04. Discussed with nursing who provide supplemental history. Encourage activity. Prognosis guarded 03/05/18 s/p ex lap 03/01 with placement of drains by Dr. Hills. Wound VAC. Fever. WBC down slightly. Wound cx growing e coli, sensitive to Zosyn. Fluconazole. Check CXR. Continue TPN, decrease Mg. Good urine output. Output per NG up yesterday. Continued tachycardia. Holding LR as patient with trace edema. Appears more comfortable with fentanyl patch for pain. Platelets trending up. Check inflammatory markers. If continued fever, consider repeating CT Encourage activity. 03/06/18 Temp elevations to 100.5 - 101.7. Persistent tachycardia in 130s. BP 100's. WBC with gradual trend down to 17.9 - was 25.0 on 03/02. Platelets trending up to 971 (was 407 on 03/02). Electrolytes and renal status stable - on TPN. Will continue with Zosyn and Diflucan for antimicrobial coverage. Continue with wound vac and drains. CT scan of ab/pelvis to exclude occult abscess formation. Encourage continued activities. 03/07/18 WBC with gradual trend down to 14.3 - was 17.9 on yesterday. Platelets elevated at 961 (was 971 yesterday). Hemoglobin persistently low at 7.6; with continued tachycardia will give 1 unit of pRBC. Electrolytes and renal status stable - on TPN. Will continue with Zosyn for antimicrobial coverage; Dr Gomez added Vancomycin and increased Diflucan to 200mg daily. Continue with wound vac and drains. CT scan of ab/pelvis showed possible new abscess formation in the suprapubic region and omental area. Encourage continued activities. 03/08/18 WBC with increase back to 17.1. HGB increased to 8.2 post transfusion yesterday. Pharm recommended changing Zosyn to Meropenem - did agree. Continue vancomycin and Diflucan. Will continue with TPN for nutritional support - NS bolus of 500cc to help with tachycardia. Continue with pain control. 03/09/18 Temp elevations continue. WBC with decrease to 15.6, but increased bands noted. Renal status and electrolytes stable. Continues of Meropenem, vancomycin, and Diflucan for coverage. Dr Gomez plan repeating CT scan with contrast (though NG) tomorrow to check for bowel function and further abscesses. TPN for nutritional and volume support. Continue with MS for pain, add Aspercreme for muscle discomfort. 03/10/18 Temp elevations continue. WBC 16.4. Renal status and electrolytes stable. Little change in overall status. CT ab/pelvis shown abscess with drain in place, however abscess has increased in size. Sx working to have drains flushed. Continues on Meropenem, vancomycin, and Diflucan for coverage. TPN for nutritional and volume support. Will give 500cc NS bolus to help improve BP. 03/11/18 Temp elevations continue. WBC trended down to 14. Renal status and electrolytes stable. Little change in overall status. CT ab/pelvis shown abscess with drain in place, however abscess has increased in size. Sx working to have drains flushed. Continues on Meropenem, vancomycin, and Diflucan for coverage. TPN for nutritional and volume support. Repeat 500cc NS bolus today and add metoprolol for tachycardia as BP allows. Continue pain control. 03/12/18 Temp elevations continue. WBC trended down to 12.7. Renal status and electrolytes stable. Little change in overall status. CT ab/pelvis shown abscess with drain in place, however abscess has increased in size per CT 03/10/18. Sx working to have drains flushed. Continues on Meropenem, vancomycin, and Diflucan for coverage. TPN for nutritional and volume support. Added q12hr metoprolol in attempt to control heart rate, only marginally working and could be titrated if blood pressure allows. Continue pain control. 03/13/18 WBC with trend down, but still with tachycardia and intermittent temp elevations. Continues on Meropenem, vancomycin, and Diflucan for coverage. TPN for nutritional and volume support. Continue pain control. 03/14/18 WBC with elevation to 13.4. CT showing decrease size of abscess. Continues on Meropenem, vancomycin, and Diflucan for coverage. TPN for nutritional and volume support. Electrolytes and renal status stable. Continue pain control. Continue activities as able. 03/15/18 WBC with stable at 13.7. Platelets with decrease to 594. Less temp elevations seen. Continues on Meropenem, vancomycin, and Diflucan for coverage. TPN for nutritional and volume support. Electrolytes and renal status stable. Dr Gomez trying NG clamping and clear liquids. Continue pain control. Continue activities as able. 03/16/18 WBC with decrease to 11.7. Platelets with decrease to 546. Less temp elevations seen. Continues on Meropenem, vancomycin, and Diflucan for coverage. TPN for nutritional and volume support. Electrolytes and renal status stable. NG removed; clear liquids. 03/17/18 WBC with decrease to 10.1. Platelets with decrease to 529. Less temp elevations seen. Evaluated by Dr Ac today - vancomycin stopped and changed meropenem to Zosyn and continued Diflucan. TPN for nutritional and volume support. Electrolytes and renal status stable. Advanced to regular diet but oral drive low. HGB variable, but trend down. Will give 1 unit pRBC due to continued tachycardia in post op patent. Continue pain control. Continue activities as able - walking in halls with nursing help. 03/18/2018 White blood cell count today is up mildly to 12.1. Bands are up to 7 from one yesterday. He has been afebrile over 24 hours. Hemoglobin improved to 9.5 up from 7.1 yesterday. He received 1 unit of blood yesterday. He does have mildly elevated phosphorus and magnesium. Discussed with pharmacy. The rate of his TPN will be decreased. Will recheck phosphorus and magnesium tomorrow. Repeat INR tomorrow. Repeat CBC and renal panel tomorrow. Advance diet as tolerated. Will try oral supplements. Continue ambulation with assist. The patient continues to have persistent tachycardia this hospital course, but rate is slowly improving. No real change with transfusion of 1 unit of blood. Recheck C-reactive protein tomorrow Discussed case with CCU nursing. We'll check a vitamin B-12 tomorrow regarding borderline low B-12 level Greater than 40 minutes of critical care time spent seeing and evaluating the patient in determining care plan. 03/19/2018 White blood cell count continues to increase and is 16.5 today. Bands are 6 down from 7 yesterday. Hemoglobin has improved to 10.9. Patient remains afebrile. C-reactive protein has decreased from 181 down to 75. We'll continue on fluconazole and Zosyn for intra-abdominal abscesses. Advance diet as tolerated. Continue TPN for now, he will receive a customized formula with no phosphorus and decreased magnesium and calcium. Continue ambulation with assist Recheck CBC with manual differential, renal panel, magnesium tomorrow. 03/20/2018 White blood cell count continues to increase and is 18.8 today from 16.8 yesterday. Bands are 1 down from 6 yesterday. Temperature currently is 99.9. Dr. Gomez has ordered CT abdomen with contrast. The patient is currently on day 4 of Zosyn. He has been on fluconazole since at least February 23. Meropenem was discontinued March 18. Continue TPN for now, he is on a customized formula. Continue ambulation with assist Recheck CBC with manual differential, renal panel, magnesium tomorrow. Discussed with the patient's nurse and family. 03/21/18 CT abdomen with contrast obtained yesterday and shows a decrease in size of the intra-abdominal abscesses with no new abscess formation. White count is essentially stable from yesterday. The patient remains afebrile. He continues on fluconazole which was started February 23 and Zosyn which was started March 17. Prior to being on Zosyn, he was on meropenem but this was discontinued March 18 He continues to have tachycardia, but urine output remains stable. Fluid boluses in the past have not improved tachycardia. He does not appear to be in pain or anxious at this time. He is on fentanyl patch for pain and has when necessary medication for pain and anxiety. Will check TSH and reflex T4. 03/22/18 Stable, TSH normal. Mcdermott catheter discontinued. Pain well-controlled; taking by mouth well. 03/23/18 Oral intake improving, has been on a regular diet for approximately 5 days now and is eating meals well. Will discuss tapering TPN off with surgery. Renal function, hemoglobin, and blood pressure all stable. Persistent tachycardia, patient tolerates well-does not respond to additional fluids and patient does not appear to be in pain. Continue fluconazole and Zosyn-antibiotics under the management of Dr. Ac. 03/24/18 Discontinuing TPN today; stable to transfer out of ICU. Otherwise stable. 03/25/18 Doing well, TPN discontinued yesterday. Blood sugars stable following discontinuation of TPN. Melyssa-Hayden BANG'chano. 03/25/18 Stable, no change in therapy.
[2018-03-26] MEDS: FLUCONAZOLE PB 200 MG/100 ML BAG IV SCH (17:55)
[2018-03-27] MEDS: PIPERACILLIN/TAZOBACTAM 3.375 GM in D5W 100 ML IV SCH ×4 (02:52→20:25)
[2018-03-27] MEDS: NS FLUSH BAG 500ml IV PRN (02:52)
[2018-03-27] MEDS: SALINE FLUSH 10ml SYRINGE IVF PRN ×2 (02:52→03:45)
[2018-03-27] MEDS: PANTOPRAZOLE 40 MG TABLET PO SCH (06:32)
--- NOTE | 2018-03-27 09:16 | Progress Note ---
DATE 03/26/2018 HISTORY The patient did refuse breakfast this morning. He did refuse to get out of bed and walk or get up in a recliner. The patient is nonverbal when I asked him questions this morning. PHYSICAL EXAMINATION VITAL SIGNS: Temperature is 97.9 degrees Fahrenheit axillary. Pulse is 115. Respiratory rate is 18. Blood pressure is 119/75. Oxygen saturation is 96% on room air. ABDOMEN: The patient does have a wound VAC in place at the midline abdominal incision. There is quite a bit of stool in the colostomy bag at the right lower quadrant. The Jose-Almazan closed suction drain sites all look good. IMPRESSION Status post exploratory laparotomy x2 with near total colectomy and end colostomy formation and Mendoza's pouch formation due to colonic rupture with fecal peritonitis. The tachycardia has been a chronic finding since admission to the hospital. PLAN Continue current postoperative care on the surgical unit. SYLVAIN
--- NOTE | 2018-03-27 09:18 | General Surgery Progress Note ---
Subjective Narrative: He denies pain when asked this morning. Staff reporting pain with left side CLIFTON irrigation of 25 ml NS and the NS mostly comes out the drain hole, not throught the CLIFTON. Minimal to not drainage documented from the left JPs. Arslan is ambulating independently with supervision. Light brown stool in ostomy bag. Voiding without difficulty. Cooperative with bath and activities when approached gently. T-max 101 yesterday. Remains chronically slightly tachycardic. - Vital Signs Last Vital Signs Temp 96.9 F 03/27/18 03:19 Pulse 115 H 03/27/18 03:19 Resp 16 03/27/18 03:19 BP 124/74 03/27/18 03:19 Pulse Ox 99 03/27/18 03:19 - Laboratory Result Diagrams: 03/27/18 03:40 03/25/18 08:10 - Abnormal Exam General: other (cognitively challenged but answers questions with yes or no) Cardiovascular: other (tachy 110's-120's) - Normal Exam General: awake, alert Abdominal: BS normo active x4 (with light brown stool and flatus in ostomy bag) , soft, appropriately tender, incision(s) (wound vac in place, foam nicely compressed. ), other (left JPs without fluid this am, emptied at shift change. 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 Ac. Continue wound vac changes by wound clinic staff till after the next CT. Hospital Course Summary Disclaimer: The visit summary below is not to be considered part of the above Progress Note. Hospital Course: 02/20/18 Admit, CCU. Bowel rest - NPO. Cont IVF - 1/2 NS with Na of 144. Consult Dr. Gomez for mgt. Sx management with Protonix, morphine, Zofran. Cont IVF for tachycardia; sepsis. Repeat lactate. Cont Zosyn for bowel coverage. Follow BC results. Iron w/u in progress. Type & screen ordered. D/W with Dr. Stevens and RN. 02/22/18 Gastrografin enema 02/21 with copious stool resulting. However, still with stool in rectal vault. Deferring further management to surgery team, await recs. Cont Zosyn given bandemia, tachycardia and concern for toxic megacolon. 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 Clinically deteriorating. Going for surgery for perforation/free air. Near total colectomy performed. Became hypotensive, tachycardic with rates into 180s. Aggressively fluid resuscitated. 02/24/18 UOP, tachycardia improved. Cont abx. Initiate TPN. Monitoring for return of bowel fxn. 02/25/18 Given Kphos Transfused another 1U PRBCs. Stopped LR. Surgery to trial clamping NGT. Intermittently febrile- rectal Tylenol. 02/26/18 Did have fever overnight. Has tolerated NGT clamping. No O2 requirements. No N/V /CP. Hasn't been able to perform IS very well. 02/27/18 Remains on TPN, tolerating limited oral liquids earlier today however resultant emesis has required resumption of NG suction. Good output per ostomy; 2400 mL output reported during prior 24-hour period. Hemoglobin drifting down, ongoing hypokalemia-post being reassessed this afternoon. Potassium increased and TPN but may require supplemental boluses due to potassium lost in stool and emesis. Persistent tachycardia-may require additional blood transfusion. Remains on Zosyn for peritonitis; chest x-ray with pleural effusion but no evidence of pneumonia. May require repeat CT abdomen/pelvis to exclude intra-abdominal abscess. 02/28/18 Remains on TPN, electrolytes stable. Good urine output per ostomy but continues to have high volume output per NG. Output significantly higher than input, weight down, ongoing tachycardia--> 1 L fluid bolus tonight. Anticipate ongoing need for fluids to match fluid losses. CT abdomen/pelvis discussed with radiology this evening and subsequently with Dr. Hills; will review further with radiology tomorrow to determine if drainage can be performed of the subphrenic abscess percutaneously or if surgical drainage/washout will be needed due to presence of multiple smaller fluid collections suggestive of early abscesses. Dr. Hills notified patient 's parents of findings. Hemoglobin continues to drift down very slowly, may be slightly hemoconcentrated at present. Type and screen in a.m. Anticipating transfusion in the next 1-2 days. 03/01/18 OP Day - Exploratory laparotomy, drainage of multiple intraabdominal abscesses, fecal disimpaction, intraoperative flexible proctoscopy. Subdiaphragmatic abscess and left upper quadrant-discussed with radiology and message subsequently relayed to Dr. Hills regarding potential risk of percutaneous drainage. Patient tenably scheduled to return to the operating room later today. Several very small extensive gas in the pelvis without clear room enhancement to suggest abscess, may simply be postoperative change. Remains on TPN, electrolytes stable. Good urine output per ostomy but continues to have high volume output per NG. Output significantly higher than input, weight down, ongoing tachycardia--> 1 L fluid bolus this a.m. and continue normal saline at 100 mL per hour. 2 units PRBCs matched preoperatively; one being given prior to surgery for hemoglobin 7.4. 03/02/18 s/p ex lap with placement of drains by Dr. Hills. Febrile before surgery. WBC up post-op. Wound cx growing GPC, GNR, GPR. Continue Zosyn Remains on TPN, reduce K+. Good urine output. Output per NG down. Continued tachycardia. Continue IVF and treat pain. Output significantly higher than input, weight down, ongoing tachycardia--> 1 L fluid bolus this a.m. and continue normal saline at 100 mL per hour. Anticipate ongoing need for fluids to match fluid losses. 1 unit PRBCs given 03/01. Total of 4 units transfused Ferrlecit dose given 02/25, plan to repeat dose 03/04. Discussed with nursing who provide supplemental history; mother updated. Prognosis guarded. 03/03/18 s/p ex lap 03/01 with placement of drains by Dr. Hills. Afebrile and WBC down. Wound cx growing GPC, GNR, GPR. Continue Zosyn and fluconazole Continue TPN, K+ improved. Good urine output. Output per NG and ostomy down since 03/01 ex lap. Continued tachycardia. Continue IVF and treat pain. ? whether anxious. Trial of Ativan Anticipate ongoing need for fluids to match fluid losses. 1 unit PRBCs given 03/01. Total of 4 units transfused Ferrlecit dose given 02/25, plan to repeat dose 03/04. Discussed with nursing who provide supplemental history; mother updated. Prognosis guarded. 03/04/18 s/p ex lap 03/01 with placement of drains by Dr. Hills. Fever and WBC up slightly. Wound cx growing e coli, sensitive to Zosyn. Fluconazole. Check CXR Continue TPN, K+ improved. Good urine output. Output per NG and ostomy down since 03/01 ex lap. Continued tachycardia. Hold LR as patient with trace edema. Start fentanyl patch for pain. He got 28 mg iv morphine yesterday. Starting fentanyl at 12mcg d /t possible interaction with Fluconazole. 1 unit PRBCs given 03/01. Total of 4 units transfused Ferrlicit dose given 02/25, plan to repeat dose 03/04. Discussed with nursing who provide supplemental history. Encourage activity. Prognosis guarded 03/05/18 s/p ex lap 03/01 with placement of drains by Dr. Hills. Wound VAC. Fever. WBC down slightly. Wound cx growing e coli, sensitive to Zosyn. Fluconazole. Check CXR. Continue TPN, decrease Mg. Good urine output. Output per NG up yesterday. Continued tachycardia. Holding LR as patient with trace edema. Appears more comfortable with fentanyl patch for pain. Platelets trending up. Check inflammatory markers. If continued fever, consider repeating CT Encourage activity. 03/06/18 Temp elevations to 100.5 - 101.7. Persistent tachycardia in 130s. BP 100's. WBC with gradual trend down to 17.9 - was 25.0 on 03/02. Platelets trending up to 971 (was 407 on 03/02). Electrolytes and renal status stable - on TPN. Will continue with Zosyn and Diflucan for antimicrobial coverage. Continue with wound vac and drains. CT scan of ab/pelvis to exclude occult abscess formation. Encourage continued activities. 03/07/18 WBC with gradual trend down to 14.3 - was 17.9 on yesterday. Platelets elevated at 961 (was 971 yesterday). Hemoglobin persistently low at 7.6; with continued tachycardia will give 1 unit of pRBC. Electrolytes and renal status stable - on TPN. Will continue with Zosyn for antimicrobial coverage; Dr Gomez added Vancomycin and increased Diflucan to 200mg daily. Continue with wound vac and drains. CT scan of ab/pelvis showed possible new abscess formation in the suprapubic region and omental area. Encourage continued activities. 03/08/18 WBC with increase back to 17.1. HGB increased to 8.2 post transfusion yesterday. Pharm recommended changing Zosyn to Meropenem - did agree. Continue vancomycin and Diflucan. Will continue with TPN for nutritional support - NS bolus of 500cc to help with tachycardia. Continue with pain control. 03/09/18 Temp elevations continue. WBC with decrease to 15.6, but increased bands noted. Renal status and electrolytes stable. Continues of Meropenem, vancomycin, and Diflucan for coverage. Dr Gomez plan repeating CT scan with contrast (though NG) tomorrow to check for bowel function and further abscesses. TPN for nutritional and volume support. Continue with MS for pain, add Aspercreme for muscle discomfort. 03/10/18 Temp elevations continue. WBC 16.4. Renal status and electrolytes stable. Little change in overall status. CT ab/pelvis shown abscess with drain in place, however abscess has increased in size. Sx working to have drains flushed. Continues on Meropenem, vancomycin, and Diflucan for coverage. TPN for nutritional and volume support. Will give 500cc NS bolus to help improve BP. 03/11/18 Temp elevations continue. WBC trended down to 14. Renal status and electrolytes stable. Little change in overall status. CT ab/pelvis shown abscess with drain in place, however abscess has increased in size. Sx working to have drains flushed. Continues on Meropenem, vancomycin, and Diflucan for coverage. TPN for nutritional and volume support. Repeat 500cc NS bolus today and add metoprolol for tachycardia as BP allows. Continue pain control. 03/12/18 Temp elevations continue. WBC trended down to 12.7. Renal status and electrolytes stable. Little change in overall status. CT ab/pelvis shown abscess with drain in place, however abscess has increased in size per CT 03/10/18. Sx working to have drains flushed. Continues on Meropenem, vancomycin, and Diflucan for coverage. TPN for nutritional and volume support. Added q12hr metoprolol in attempt to control heart rate, only marginally working and could be titrated if blood pressure allows. Continue pain control. 03/13/18 WBC with trend down, but still with tachycardia and intermittent temp elevations. Continues on Meropenem, vancomycin, and Diflucan for coverage. TPN for nutritional and volume support. Continue pain control. 03/14/18 WBC with elevation to 13.4. CT showing decrease size of abscess. Continues on Meropenem, vancomycin, and Diflucan for coverage. TPN for nutritional and volume support. Electrolytes and renal status stable. Continue pain control. Continue activities as able. 03/15/18 WBC with stable at 13.7. Platelets with decrease to 594. Less temp elevations seen. Continues on Meropenem, vancomycin, and Diflucan for coverage. TPN for nutritional and volume support. Electrolytes and renal status stable. Dr Gomez trying NG clamping and clear liquids. Continue pain control. Continue activities as able. 03/16/18 WBC with decrease to 11.7. Platelets with decrease to 546. Less temp elevations seen. Continues on Meropenem, vancomycin, and Diflucan for coverage. TPN for nutritional and volume support. Electrolytes and renal status stable. NG removed; clear liquids. 03/17/18 WBC with decrease to 10.1. Platelets with decrease to 529. Less temp elevations seen. Evaluated by Dr Ac today - vancomycin stopped and changed meropenem to Zosyn and continued Diflucan. TPN for nutritional and volume support. Electrolytes and renal status stable. Advanced to regular diet but oral drive low. HGB variable, but trend down. Will give 1 unit pRBC due to continued tachycardia in post op patent. Continue pain control. Continue activities as able - walking in halls with nursing help. 03/18/2018 White blood cell count today is up mildly to 12.1. Bands are up to 7 from one yesterday. He has been afebrile over 24 hours. Hemoglobin improved to 9.5 up from 7.1 yesterday. He received 1 unit of blood yesterday. He does have mildly elevated phosphorus and magnesium. Discussed with pharmacy. The rate of his TPN will be decreased. Will recheck phosphorus and magnesium tomorrow. Repeat INR tomorrow. Repeat CBC and renal panel tomorrow. Advance diet as tolerated. Will try oral supplements. Continue ambulation with assist. The patient continues to have persistent tachycardia this hospital course, but rate is slowly improving. No real change with transfusion of 1 unit of blood. Recheck C-reactive protein tomorrow Discussed case with CCU nursing. We'll check a vitamin B-12 tomorrow regarding borderline low B-12 level Greater than 40 minutes of critical care time spent seeing and evaluating the patient in determining care plan. 03/19/2018 White blood cell count continues to increase and is 16.5 today. Bands are 6 down from 7 yesterday. Hemoglobin has improved to 10.9. Patient remains afebrile. C-reactive protein has decreased from 181 down to 75. We'll continue on fluconazole and Zosyn for intra-abdominal abscesses. Advance diet as tolerated. Continue TPN for now, he will receive a customized formula with no phosphorus and decreased magnesium and calcium. Continue ambulation with assist Recheck CBC with manual differential, renal panel, magnesium tomorrow. 03/20/2018 White blood cell count continues to increase and is 18.8 today from 16.8 yesterday. Bands are 1 down from 6 yesterday. Temperature currently is 99.9. Dr. Gomez has ordered CT abdomen with contrast. The patient is currently on day 4 of Zosyn. He has been on fluconazole since at least February 23. Meropenem was discontinued March 18. Continue TPN for now, he is on a customized formula. Continue ambulation with assist Recheck CBC with manual differential, renal panel, magnesium tomorrow. Discussed with the patient's nurse and family. 03/21/18 CT abdomen with contrast obtained yesterday and shows a decrease in size of the intra-abdominal abscesses with no new abscess formation. White count is essentially stable from yesterday. The patient remains afebrile. He continues on fluconazole which was started February 23 and Zosyn which was started March 17. Prior to being on Zosyn, he was on meropenem but this was discontinued March 18 He continues to have tachycardia, but urine output remains stable. Fluid boluses in the past have not improved tachycardia. He does not appear to be in pain or anxious at this time. He is on fentanyl patch for pain and has when necessary medication for pain and anxiety. Will check TSH and reflex T4. 03/22/18 Stable, TSH normal. Mcdermott catheter discontinued. Pain well-controlled; taking by mouth well. 03/23/18 Oral intake improving, has been on a regular diet for approximately 5 days now and is eating meals well. Will discuss tapering TPN off with surgery. Renal function, hemoglobin, and blood pressure all stable. Persistent tachycardia, patient tolerates well-does not respond to additional fluids and patient does not appear to be in pain. Continue fluconazole and Zosyn-antibiotics under the management of Dr. Ac. 03/24/18 Discontinuing TPN today; stable to transfer out of ICU. Otherwise stable. 03/25/18 Doing well, TPN discontinued yesterday. Blood sugars stable following discontinuation of TPN. Accu-Cheks DC'd. 03/25/18 Stable, no change in therapy.
[2018-03-27] MEDS: ENOXAPARIN 40 MG/0.4 ML INJECTION SQ SCH (09:36)
--- NOTE | 2018-03-27 09:52 | ID Progress Note ---
Subjective Date: 03/27/18 Subjective: He is awake and alert. Answers questions with one word answers, but seems to say "yes" to every question I ask him. He says he had abdominal pain and nausea. Seems to be eating some. Has been afebrile for several days. Exam Vital Signs: Temperature 99.7 F 03/27/18 09:00 Pulse Rate 122 H 03/27/18 09:00 Respiratory Rate 16 03/27/18 09:00 Blood Pressure 121/72 03/27/18 09:00 Pulse Oximetry 99 03/27/18 09:00 Height/Weight/BMI: Height 1.75 m Weight 60.8 kg Body Mass Index 22.5 - Constitutional Present: no acute distress, well nourished, well developed, thin - Routine HEENT Exam Head: Present: normocephalic, atraumatic Eye: Present: EOMI, PERRL ENT: Present: mucous membranes moist, oropharynx clear - Routine Neck Exam Present: supple - Routine Respiratory Exam Present: CTA bilaterally (anteriorly) - Routine Cardiovascular Exam Present: RRR (somewhat tachycardic) - Routine Abdominal Exam Present: soft, normoactive bowel sounds, non distended, non tender, ostomy Comments: 3 drains in L side of abdomen, minimal drainage in them - Routine Extremities Exam Absent: cyanosis, clubbing, edema - Routine Skin Exam Present: intact. Absent: rash Comments: PICC site ok - Routine Neurological Exam Present: alert, CN II-XII intact. Absent: motor deficit Difficult to fully assess; answers questions with one-word answers - Routine Psychiatric Exam Present: unable to assess Results - Labs CBC & Chem 7: 03/27/18 03:40 03/25/18 08:10 Microbiology Results: Microbiology 03/01/18 18:56 Abdomen, Left Upper Gram Stain - Final 03/01/18 18:56 Abdomen, Left Upper Surgical Culture - Final Escherichia coli Anaerobic Gram-Negative Bhanu Anaerobic Gram-Positive Cocci 02/23/18 20:15 Peripheral/Iv Start Gram Stain - Final Not performed 02/23/18 20:15 Peripheral/Iv Start Blood Culture - Final No Growth After 5 Days 02/23/18 20:05 Peripheral/Iv Start Gram Stain - Final Not performed 02/23/18 20:05 Peripheral/Iv Start Blood Culture - Final No Growth After 5 Days 02/20/18 20:07 Peripheral/Iv Start Blood Culture - Final No Growth After 5 Days Impression: Sepsis, secondary to GI source Fever, leukocytosis, improving Sinus tachycardia Perforation of splenic flexure due to ischemia, s/p near total colectomy with ostomy placement 02/23/18, fecal peritonitis noted S/p operative drainage of intra-abdominal abscesses and fecal disimpaction , cultures with E. coli, anaerobic GNR, anaerobic GPC. Severe iron deficiency anemia autism H/o toxic megacolon Recommendation: Continue Zosyn and fluconazole. He will need at least 2 weeks of antibiotics, but he might require more. I would recommend repeat CT in a couple weeks to make sure the abscesses are resolved before stopping antibiotics. Will change the fluconazole to po. Case discussed with Dr. Chapman.
[2018-03-27] MEDS: FLUCONAZOLE 100 MG TABLET PO SCH (12:05)
--- NOTE | 2018-03-27 14:00 | Progress Note ---
- Date 03/27/18 Subjective: Arslan was sitting in his chair while the RN was assessing his drains. With irrigation the saline actually exits the hole superior on the right. Drainage output has been similar to yesterday. He answered yes to most questions but his mother interjected and stated that it doesn't seem like he's been in any pain, and he's been eating/drinking well without any vomiting. He has been ambulating through the halls with a steady gain. He has a chronic tremor. He denied any SOA. Objective Vital signs: Temperature 97.7 F 03/27/18 12:47 Pulse Rate 145 H 03/27/18 12:47 Respiratory Rate 20 03/27/18 12:47 Blood Pressure 117/74 03/27/18 12:47 Pulse Oximetry 98 03/27/18 12:47 Rhythm: Sinus Tachycardia Height/Weight/BMI: Height 1.75 m Weight 60.8 kg Body Mass Index 22.5 - Constitutional Present: no acute distress, well nourished, well developed, thin - Routine HEENT Exam Head: Present: normocephalic Eye: Absent: conjunctival icterus, scleral injection ENT: Present: mucous membranes moist - Routine Respiratory Exam Present: CTA bilaterally - Routine Cardiovascular Exam Present: RRR, S1, S2, tachycardia - Routine Abdominal Exam Present: soft, normoactive bowel sounds (hyperactive), non distended, drain ( multiple drains), ostomy (brown stool) - Routine Extremities Exam Present: no edema - Routine Skin Exam Present: intact, warm - Routine Neurological Exam Present: alert, oriented X3 - Routine Psychiatric Exam Present: normal affect (baseline) Results - Labs CBC & Chem 7: 03/27/18 03:40 03/25/18 08:10 Microbiology Results: Microbiology 03/01/18 18:56 Abdomen, Left Upper Gram Stain - Final 03/01/18 18:56 Abdomen, Left Upper Surgical Culture - Final Escherichia coli Anaerobic Gram-Negative Bhanu Anaerobic Gram-Positive Cocci 02/23/18 20:15 Peripheral/Iv Start Gram Stain - Final Not performed 02/23/18 20:15 Peripheral/Iv Start Blood Culture - Final No Growth After 5 Days 02/23/18 20:05 Peripheral/Iv Start Gram Stain - Final Not performed 02/23/18 20:05 Peripheral/Iv Start Blood Culture - Final No Growth After 5 Days 02/20/18 20:07 Peripheral/Iv Start Blood Culture - Final No Growth After 5 Days Assessment and Plan (1) Megacolon Problem details: Toxic megacolon Current visit: Yes Status: Resolved (2) Perforation of colon Problem details: Perforation of the splenic flexure due to ischemic changes Current visit: Yes Status: Acute Assessment and Plan: Assessment 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 On meropenem 03/08-03/17, Vancomycin 03/07-03/17; Zosyn initiated on March 18. Tachycardia -persistent during the hospital course Severe constipation-resolved Severe sepsis -resolved Fever Severe iron deficiency anemia-received IV iron 02/25/2018 and 03/04/2018. He has had a total of 6 units of blood, he received his last unit 03/17/2018 Autism Dental problems Hypophosphatemia-resolved Hyperphosphatemia-on TPN Hypermagnesemia-on TPN-resolved Hypokalemia (Not POA) -resolved LLL atelectasis Acute kidney injury with oliguria-postop -resolved Hyperkalemia (Not POA) -resolved Thrombocytosis (Not POA) Mild elevation of INR of 1.39 on 03/19/2018 Plan Tolerating orals; encouraged ambulation. Drain/VAC care per sx. Per Dr. Ac - Continue Zosyn and fluconazole. He will need at least 2 weeks of antibiotics, but he might require more. I would recommend repeat CT in a couple weeks to make sure the abscesses are resolved before stopping antibiotics. Will change the fluconazole to po. WBC normal. Hgb 8.9. CRP increased to 112.6 but peaked at 182 earlier in the month Ongoing tachycardia - cortisol level normal at 16. Could consider cardiology consult; vs starting BB. DVT Prophylaxis: SCD's GI Prophylaxis: Protonix Resuscitation Status: Full Code - Physician Narrative Physician: Luma Chapman MD Narrative: Date: 03/27/18 Time: 1639 I have independently evaluated and examined this patient. I reviewed the chart, the patient's history, and the RAIL CAR OPERATOR/PA's documented findings as above. We discussed and formulated the assessment and plan as above with additions as below: Arslan complained of being tired when seen this afternoon; he additionally complained of abdominal pain but overall was less interactive than he's been the last 2 days. MAXIMUM TEMPERATURE 100.1 last night; persistent resting tachycardia Drowsy, regular rhythm Abdomen soft, multiple drains/colostomy; generalized tenderness but seems greatest in the left lower quadrant on palpation, voluntary guarding present Blood pressure stable-plan repeat CT abdomen/pelvis on 03/30 Low-dose beta eugene will be tried to suppress tachycardia. Discussed with Dr. Hills and Dr. Ac. Hospital Course Summary Disclaimer: The visit summary below is not to be considered part of the above Progress Note. Hospital Course: 02/20/18 Admit, CCU. Bowel rest - NPO. Cont IVF - 1/ NS with Na of 144. Consult Dr. Gomez for mgt. Sx management with Protonix, morphine, Zofran. Cont IVF for tachycardia; sepsis. Repeat lactate. Cont Zosyn for bowel coverage. Follow BC results. Iron w/u in progress. Type & screen ordered. D/W with Dr. Stevens and RN. 02/22/18 Gastrografin enema 02/21 with copious stool resulting. However, still with stool in rectal vault. Deferring further management to surgery team, await recs. Cont Zosyn given bandemia, tachycardia and concern for toxic megacolon. 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 Clinically deteriorating. Going for surgery for perforation/free air. Near total colectomy performed. Became hypotensive, tachycardic with rates into 180s. Aggressively fluid resuscitated. 02/24/18 UOP, tachycardia improved. Cont abx. Initiate TPN. Monitoring for return of bowel fxn. 02/25/18 Given Kphos Transfused another 1U PRBCs. Stopped LR. Surgery to trial clamping NGT. Intermittently febrile- rectal Tylenol. 02/26/18 Did have fever overnight. Has tolerated NGT clamping. No O2 requirements. No N/V /CP. Hasn't been able to perform IS very well. 02/27/18 Remains on TPN, tolerating limited oral liquids earlier today however resultant emesis has required resumption of NG suction. Good output per ostomy; 2400 mL output reported during prior 24-hour period. Hemoglobin drifting down, ongoing hypokalemia-post being reassessed this afternoon. Potassium increased and TPN but may require supplemental boluses due to potassium lost in stool and emesis. Persistent tachycardia-may require additional blood transfusion. Remains on Zosyn for peritonitis; chest x-ray with pleural effusion but no evidence of pneumonia. May require repeat CT abdomen/pelvis to exclude intra-abdominal abscess. 02/28/18 Remains on TPN, electrolytes stable. Good urine output per ostomy but continues to have high volume output per NG. Output significantly higher than input, weight down, ongoing tachycardia--> 1 L fluid bolus tonight. Anticipate ongoing need for fluids to match fluid losses. CT abdomen/pelvis discussed with radiology this evening and subsequently with Dr. Hills; will review further with radiology tomorrow to determine if drainage can be performed of the subphrenic abscess percutaneously or if surgical drainage/washout will be needed due to presence of multiple smaller fluid collections suggestive of early abscesses. Dr. Hills notified patient 's parents of findings. Hemoglobin continues to drift down very slowly, may be slightly hemoconcentrated at present. Type and screen in a.m. Anticipating transfusion in the next 1-2 days. 03/01/18 OP Day - Exploratory laparotomy, drainage of multiple intraabdominal abscesses, fecal disimpaction, intraoperative flexible proctoscopy. Subdiaphragmatic abscess and left upper quadrant-discussed with radiology and message subsequently relayed to Dr. Hills regarding potential risk of percutaneous drainage. Patient tenably scheduled to return to the operating room later today. Several very small extensive gas in the pelvis without clear room enhancement to suggest abscess, may simply be postoperative change. Remains on TPN, electrolytes stable. Good urine output per ostomy but continues to have high volume output per NG. Output significantly higher than input, weight down, ongoing tachycardia--> 1 L fluid bolus this a.m. and continue normal saline at 100 mL per hour. 2 units PRBCs matched preoperatively; one being given prior to surgery for hemoglobin 7.4. 03/02/18 s/p ex lap with placement of drains by Dr. Hills. Febrile before surgery. WBC up post-op. Wound cx growing GPC, GNR, GPR. Continue Zosyn Remains on TPN, reduce K+. Good urine output. Output per NG down. Continued tachycardia. Continue IVF and treat pain. Output significantly higher than input, weight down, ongoing tachycardia--> 1 L fluid bolus this a.m. and continue normal saline at 100 mL per hour. Anticipate ongoing need for fluids to match fluid losses. 1 unit PRBCs given 03/01. Total of 4 units transfused Ferrlecit dose given 02/25, plan to repeat dose 03/04. Discussed with nursing who provide supplemental history; mother updated. Prognosis guarded. 03/03/18 s/p ex lap 03/01 with placement of drains by Dr. Hills. Afebrile and WBC down. Wound cx growing GPC, GNR, GPR. Continue Zosyn and fluconazole Continue TPN, K+ improved. Good urine output. Output per NG and ostomy down since 03/01 ex lap. Continued tachycardia. Continue IVF and treat pain. ? whether anxious. Trial of Ativan Anticipate ongoing need for fluids to match fluid losses. 1 unit PRBCs given 03/01. Total of 4 units transfused Ferrlecit dose given 02/25, plan to repeat dose 03/04. Discussed with nursing who provide supplemental history; mother updated. Prognosis guarded. 03/04/18 s/p ex lap 03/01 with placement of drains by Dr. Hills. Fever and WBC up slightly. Wound cx growing e coli, sensitive to Zosyn. Fluconazole. Check CXR Continue TPN, K+ improved. Good urine output. Output per NG and ostomy down since 03/01 ex lap. Continued tachycardia. Hold LR as patient with trace edema. Start fentanyl patch for pain. He got 28 mg iv morphine yesterday. Starting fentanyl at 12mcg d /t possible interaction with Fluconazole. 1 unit PRBCs given 03/01. Total of 4 units transfused Ferrlicit dose given 02/25, plan to repeat dose 03/04. Discussed with nursing who provide supplemental history. Encourage activity. Prognosis guarded 03/05/18 s/p ex lap 03/01 with placement of drains by Dr. Hills. Wound VAC. Fever. WBC down slightly. Wound cx growing e coli, sensitive to Zosyn. Fluconazole. Check CXR. Continue TPN, decrease Mg. Good urine output. Output per NG up yesterday. Continued tachycardia. Holding LR as patient with trace edema. Appears more comfortable with fentanyl patch for pain. Platelets trending up. Check inflammatory markers. If continued fever, consider repeating CT Encourage activity. 03/06/18 Temp elevations to 100.5 - 101.7. Persistent tachycardia in 130s. BP 100's. WBC with gradual trend down to 17.9 - was 25.0 on 03/02. Platelets trending up to 971 (was 407 on 03/02). Electrolytes and renal status stable - on TPN. Will continue with Zosyn and Diflucan for antimicrobial coverage. Continue with wound vac and drains. CT scan of ab/pelvis to exclude occult abscess formation. Encourage continued activities. 03/07/18 WBC with gradual trend down to 14.3 - was 17.9 on yesterday. Platelets elevated at 961 (was 971 yesterday). Hemoglobin persistently low at 7.6; with continued tachycardia will give 1 unit of pRBC. Electrolytes and renal status stable - on TPN. Will continue with Zosyn for antimicrobial coverage; Dr Gomez added Vancomycin and increased Diflucan to 200mg daily. Continue with wound vac and drains. CT scan of ab/pelvis showed possible new abscess formation in the suprapubic region and omental area. Encourage continued activities. 03/08/18 WBC with increase back to 17.1. HGB increased to 8.2 post transfusion yesterday. Pharm recommended changing Zosyn to Meropenem - did agree. Continue vancomycin and Diflucan. Will continue with TPN for nutritional support - NS bolus of 500cc to help with tachycardia. Continue with pain control. 03/09/18 Temp elevations continue. WBC with decrease to 15.6, but increased bands noted. Renal status and electrolytes stable. Continues of Meropenem, vancomycin, and Diflucan for coverage. Dr Gomez plan repeating CT scan with contrast (though NG) tomorrow to check for bowel function and further abscesses. TPN for nutritional and volume support. Continue with MS for pain, add Aspercreme for muscle discomfort. 03/10/18 Temp elevations continue. WBC 16.4. Renal status and electrolytes stable. Little change in overall status. CT ab/pelvis shown abscess with drain in place, however abscess has increased in size. Sx working to have drains flushed. Continues on Meropenem, vancomycin, and Diflucan for coverage. TPN for nutritional and volume support. Will give 500cc NS bolus to help improve BP. 03/11/18 Temp elevations continue. WBC trended down to 14. Renal status and electrolytes stable. Little change in overall status. CT ab/pelvis shown abscess with drain in place, however abscess has increased in size. Sx working to have drains flushed. Continues on Meropenem, vancomycin, and Diflucan for coverage. TPN for nutritional and volume support. Repeat 500cc NS bolus today and add metoprolol for tachycardia as BP allows. Continue pain control. 03/12/18 Temp elevations continue. WBC trended down to 12.7. Renal status and electrolytes stable. Little change in overall status. CT ab/pelvis shown abscess with drain in place, however abscess has increased in size per CT 03/10/18. Sx working to have drains flushed. Continues on Meropenem, vancomycin, and Diflucan for coverage. TPN for nutritional and volume support. Added q12hr metoprolol in attempt to control heart rate, only marginally working and could be titrated if blood pressure allows. Continue pain control. 03/13/18 WBC with trend down, but still with tachycardia and intermittent temp elevations. Continues on Meropenem, vancomycin, and Diflucan for coverage. TPN for nutritional and volume support. Continue pain control. 03/14/18 WBC with elevation to 13.4. CT showing decrease size of abscess. Continues on Meropenem, vancomycin, and Diflucan for coverage. TPN for nutritional and volume support. Electrolytes and renal status stable. Continue pain control. Continue activities as able. 03/15/18 WBC with stable at 13.7. Platelets with decrease to 594. Less temp elevations seen. Continues on Meropenem, vancomycin, and Diflucan for coverage. TPN for nutritional and volume support. Electrolytes and renal status stable. Dr Gomez trying NG clamping and clear liquids. Continue pain control. Continue activities as able. 03/16/18 WBC with decrease to 11.7. Platelets with decrease to 546. Less temp elevations seen. Continues on Meropenem, vancomycin, and Diflucan for coverage. TPN for nutritional and volume support. Electrolytes and renal status stable. NG removed; clear liquids. 03/17/18 WBC with decrease to 10.1. Platelets with decrease to 529. Less temp elevations seen. Evaluated by Dr Ac today - vancomycin stopped and changed meropenem to Zosyn and continued Diflucan. TPN for nutritional and volume support. Electrolytes and renal status stable. Advanced to regular diet but oral drive low. HGB variable, but trend down. Will give 1 unit pRBC due to continued tachycardia in post op patent. Continue pain control. Continue activities as able - walking in halls with nursing help. 03/18/2018 White blood cell count today is up mildly to 12.1. Bands are up to 7 from one yesterday. He has been afebrile over 24 hours. Hemoglobin improved to 9.5 up from 7.1 yesterday. He received 1 unit of blood yesterday. He does have mildly elevated phosphorus and magnesium. Discussed with pharmacy. The rate of his TPN will be decreased. Will recheck phosphorus and magnesium tomorrow. Repeat INR tomorrow. Repeat CBC and renal panel tomorrow. Advance diet as tolerated. Will try oral supplements. Continue ambulation with assist. The patient continues to have persistent tachycardia this hospital course, but rate is slowly improving. No real change with transfusion of 1 unit of blood. Recheck C-reactive protein tomorrow Discussed case with CCU nursing. We'll check a vitamin B-12 tomorrow regarding borderline low B-12 level Greater than 40 minutes of critical care time spent seeing and evaluating the patient in determining care plan. 03/19/2018 White blood cell count continues to increase and is 16.5 today. Bands are 6 down from 7 yesterday. Hemoglobin has improved to 10.9. Patient remains afebrile. C-reactive protein has decreased from 181 down to 75. We'll continue on fluconazole and Zosyn for intra-abdominal abscesses. Advance diet as tolerated. Continue TPN for now, he will receive a customized formula with no phosphorus and decreased magnesium and calcium. Continue ambulation with assist Recheck CBC with manual differential, renal panel, magnesium tomorrow. 03/20/2018 White blood cell count continues to increase and is 18.8 today from 16.8 yesterday. Bands are 1 down from 6 yesterday. Temperature currently is 99.9. Dr. Gomez has ordered CT abdomen with contrast. The patient is currently on day 4 of Zosyn. He has been on fluconazole since at least February 23. Meropenem was discontinued March 18. Continue TPN for now, he is on a customized formula. Continue ambulation with assist Recheck CBC with manual differential, renal panel, magnesium tomorrow. Discussed with the patient's nurse and family. 03/21/18 CT abdomen with contrast obtained yesterday and shows a decrease in size of the intra-abdominal abscesses with no new abscess formation. White count is essentially stable from yesterday. The patient remains afebrile. He continues on fluconazole which was started February 23 and Zosyn which was started March 17. Prior to being on Zosyn, he was on meropenem but this was discontinued March 18 He continues to have tachycardia, but urine output remains stable. Fluid boluses in the past have not improved tachycardia. He does not appear to be in pain or anxious at this time. He is on fentanyl patch for pain and has when necessary medication for pain and anxiety. Will check TSH and reflex T4. 03/22/18 Stable, TSH normal. Mcdermott catheter discontinued. Pain well-controlled; taking by mouth well. 03/23/18 Oral intake improving, has been on a regular diet for approximately 5 days now and is eating meals well. Will discuss tapering TPN off with surgery. Renal function, hemoglobin, and blood pressure all stable. Persistent tachycardia, patient tolerates well-does not respond to additional fluids and patient does not appear to be in pain. Continue fluconazole and Zosyn-antibiotics under the management of Dr. Ac. 03/24/18 Discontinuing TPN today; stable to transfer out of ICU. Otherwise stable. 03/25/18 Doing well, TPN discontinued yesterday. Blood sugars stable following discontinuation of TPN. Accu-Cheks DC'd. 03/25/18 Stable, no change in therapy. 03/26/[address] Ac - Continue Zosyn and fluconazole. He will need at least 2 weeks of antibiotics, but he might require more. I would recommend repeat CT in a couple weeks to make sure the abscesses are resolved before stopping antibiotics. Will change the fluconazole to po. WBC normal. Hgb 8.9. CRP increased to 112.6 but peaked at 182 earlier in the month Ongoing tachycardia - cortisol level normal at 16. Trial low-dose beta eugene ( metoprolol 6.25 mg twice a day) to suppress tachycardia
--- NOTE | 2018-03-27 14:42 | Wound Care Progress Note ---
Wound Center Progress Note: Pt seen for wound follow up/vac dressing change. Pt just finished working with PT, walking up and down hallway. Pt placed back to bed for wound vac dressing change. Parents at bedside. Pt denies pain. Wound vac is running at 125 mm Hg continuous pressure, black foam collapsed without leaks. LRQ colostomy pouching system is intact with no leaks, small amount semi-greenish brown drainage. Vac canister has about 120 mL serosanguineous drainage. Wound vac dressing removed. Mid abd/chest surgical incision: Continues to improve. Skin island on superior aspect of wound continue to grow in size, now 4 cm in length. Wound bed has red granulating tissue, scant active drainage with wound vac dressing change. Periwound: WDNL. Wound vac dressing reapplied, black foam collapsed without leaks, running at 125 mm Hg continuous pressure. Pt tolerated procedure well. Continue to change wound vac per order, continue to monitor ostomy pouching system PRN. All questions answered.
--- NOTE | 2018-03-27 19:10 | Progress Note ---
DATE OF VISIT 03/27/2018 REASON FOR VISIT Covering surgical care for Dr. Gomez. SUBJECTIVE Arslan still has been doing fairly well. Drains have been having minimal output. He has been eating some but his mom says not a whole lot. He still reports abdominal pain. OBJECTIVE VITAL SIGNS: Afebrile. Pulse 116, blood pressure 139/67, respiratory rate 14, oxygen saturation 99% on room air. GENERAL: The patient is awake and alert, in no acute distress. ABDOMEN: Soft, appropriately tender. His wound VAC in the midline remains in place. His ostomy has soft brown output. Drains have clear liquid in the drainage bulbs. LABORATORY Day white blood cell count 7.7, CRP 112.6. IMPRESSION Status post exploratory laparotomy x 2 with near-total colectomy and end colostomy and Mendoza's pouch due to colonic rupture with feculent peritonitis. The patient continues to gradually improve. PLAN 1. Repeat CT scan this to evaluate for ongoing undrained abscess. 2. Continue antimicrobial coverage until the CT scan. 3. Continue drains until confirmed that there is no ongoing abscess in their proximity. SYLVAIN
[2018-03-27] MEDS: ACETAMINOPHEN 650 MG/20.3 ML SOLUTION PO PRN (20:24)
[2018-03-28] MEDS: PIPERACILLIN/TAZOBACTAM 3.375 GM in D5W 100 ML IV SCH ×4 (02:18→20:06)
[2018-03-28] MEDS: PANTOPRAZOLE 40 MG TABLET PO SCH (06:09)
[2018-03-28] MEDS: ENOXAPARIN 40 MG/0.4 ML INJECTION SQ SCH (08:44)
[2018-03-28] MEDS: FLUCONAZOLE 100 MG TABLET PO SCH (08:44)
[2018-03-28] MEDS: NS FLUSH BAG 500ml IV PRN (08:45)
--- NOTE | 2018-03-28 09:13 | General Surgery Progress Note ---
Subjective Narrative: Denies pain when questioned. Staff emptying colostomy when I arrived. Thick light brown stool, small to moderate amount, hard to measure when it is this thick. Eating regular diet, has chocolate milk, chocolate pudding, and cream of wheat on his tray this morning. - Vital Signs Last Vital Signs Temp 98.4 F 03/28/18 08:00 Pulse 120 H 03/28/18 08:00 Resp 16 03/28/18 08:00 BP 121/78 03/28/18 08:00 Pulse Ox 97 03/28/18 08:00 - Laboratory Result Diagrams: 03/27/18 03:40 03/25/18 08:10 - Abnormal Exam General: other (cognitive impairment, chronic, normal state for Arslan) Cardiovascular: other (slightly tachy, this has been chronic throughout his hospitalization) - Normal Exam General: awake, alert Respiratory: no labored breathing Abdominal: non-tender, incision(s) (midline with black foam nicely compressed, it was changed yesterday with reports of improvement, good granualtion and an enlargeing skin bridge), other (CLIFTON's right and left with nearly clear serous fluid, staff still doing 2-3Xday irrigation of the left side JPs with 10 ml NS. 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 Hospital Course Summary Disclaimer: The visit summary below is not to be considered part of the above Progress Note. Hospital Course: 02/20/18 Admit, CCU. Bowel rest - NPO. Cont IVF - 1/2 NS with Na of 144. Consult Dr. Gomez for mgt. Sx management with Protonix, morphine, Zofran. Cont IVF for tachycardia; sepsis. Repeat lactate. Cont Zosyn for bowel coverage. Follow BC results. Iron w/u in progress. Type & screen ordered. D/W with Dr. Stevens and RN. 02/22/18 Gastrografin enema 02/21 with copious stool resulting. However, still with stool in rectal vault. Deferring further management to surgery team, await recs. Cont Zosyn given bandemia, tachycardia and concern for toxic megacolon. 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 Clinically deteriorating. Going for surgery for perforation/free air. Near total colectomy performed. Became hypotensive, tachycardic with rates into 180s. Aggressively fluid resuscitated. 02/24/18 UOP, tachycardia improved. Cont abx. Initiate TPN. Monitoring for return of bowel fxn. 02/25/18 Given Kphos Transfused another 1U PRBCs. Stopped LR. Surgery to trial clamping NGT. Intermittently febrile- rectal Tylenol. 02/26/18 Did have fever overnight. Has tolerated NGT clamping. No O2 requirements. No N/V /CP. Hasn't been able to perform IS very well. 02/27/18 Remains on TPN, tolerating limited oral liquids earlier today however resultant emesis has required resumption of NG suction. Good output per ostomy; 2400 mL output reported during prior 24-hour period. Hemoglobin drifting down, ongoing hypokalemia-post being reassessed this afternoon. Potassium increased and TPN but may require supplemental boluses due to potassium lost in stool and emesis. Persistent tachycardia-may require additional blood transfusion. Remains on Zosyn for peritonitis; chest x-ray with pleural effusion but no evidence of pneumonia. May require repeat CT abdomen/pelvis to exclude intra-abdominal abscess. 02/28/18 Remains on TPN, electrolytes stable. Good urine output per ostomy but continues to have high volume output per NG. Output significantly higher than input, weight down, ongoing tachycardia--> 1 L fluid bolus tonight. Anticipate ongoing need for fluids to match fluid losses. CT abdomen/pelvis discussed with radiology this evening and subsequently with Dr. Hills; will review further with radiology tomorrow to determine if drainage can be performed of the subphrenic abscess percutaneously or if surgical drainage/washout will be needed due to presence of multiple smaller fluid collections suggestive of early abscesses. Dr. Hills notified patient 's parents of findings. Hemoglobin continues to drift down very slowly, may be slightly hemoconcentrated at present. Type and screen in a.m. Anticipating transfusion in the next 1-2 days. 03/01/18 OP Day - Exploratory laparotomy, drainage of multiple intraabdominal abscesses, fecal disimpaction, intraoperative flexible proctoscopy. Subdiaphragmatic abscess and left upper quadrant-discussed with radiology and message subsequently relayed to Dr. Hills regarding potential risk of percutaneous drainage. Patient tenably scheduled to return to the operating room later today. Several very small extensive gas in the pelvis without clear room enhancement to suggest abscess, may simply be postoperative change. Remains on TPN, electrolytes stable. Good urine output per ostomy but continues to have high volume output per NG. Output significantly higher than input, weight down, ongoing tachycardia--> 1 L fluid bolus this a.m. and continue normal saline at 100 mL per hour. 2 units PRBCs matched preoperatively; one being given prior to surgery for hemoglobin 7.4. 03/02/18 s/p ex lap with placement of drains by Dr. Hills. Febrile before surgery. WBC up post-op. Wound cx growing GPC, GNR, GPR. Continue Zosyn Remains on TPN, reduce K+. Good urine output. Output per NG down. Continued tachycardia. Continue IVF and treat pain. Output significantly higher than input, weight down, ongoing tachycardia--> 1 L fluid bolus this a.m. and continue normal saline at 100 mL per hour. Anticipate ongoing need for fluids to match fluid losses. 1 unit PRBCs given 03/01. Total of 4 units transfused Ferrlecit dose given 02/25, plan to repeat dose 03/04. Discussed with nursing who provide supplemental history; mother updated. Prognosis guarded. 03/03/18 s/p ex lap 03/01 with placement of drains by Dr. Hills. Afebrile and WBC down. Wound cx growing GPC, GNR, GPR. Continue Zosyn and fluconazole Continue TPN, K+ improved. Good urine output. Output per NG and ostomy down since 03/01 ex lap. Continued tachycardia. Continue IVF and treat pain. ? whether anxious. Trial of Ativan Anticipate ongoing need for fluids to match fluid losses. 1 unit PRBCs given 03/01. Total of 4 units transfused Ferrlecit dose given 02/25, plan to repeat dose 03/04. Discussed with nursing who provide supplemental history; mother updated. Prognosis guarded. 03/04/18 s/p ex lap 03/01 with placement of drains by Dr. Hills. Fever and WBC up slightly. Wound cx growing e coli, sensitive to Zosyn. Fluconazole. Check CXR Continue TPN, K+ improved. Good urine output. Output per NG and ostomy down since 03/01 ex lap. Continued tachycardia. Hold LR as patient with trace edema. Start fentanyl patch for pain. He got 28 mg iv morphine yesterday. Starting fentanyl at 12mcg d /t possible interaction with Fluconazole. 1 unit PRBCs given 03/01. Total of 4 units transfused Ferrlicit dose given 02/25, plan to repeat dose 03/04. Discussed with nursing who provide supplemental history. Encourage activity. Prognosis guarded 03/05/18 s/p ex lap 03/01 with placement of drains by Dr. Hills. Wound VAC. Fever. WBC down slightly. Wound cx growing e coli, sensitive to Zosyn. Fluconazole. Check CXR. Continue TPN, decrease Mg. Good urine output. Output per NG up yesterday. Continued tachycardia. Holding LR as patient with trace edema. Appears more comfortable with fentanyl patch for pain. Platelets trending up. Check inflammatory markers. If continued fever, consider repeating CT Encourage activity. 03/06/18 Temp elevations to 100.5 - 101.7. Persistent tachycardia in 130s. BP 100's. WBC with gradual trend down to 17.9 - was 25.0 on 03/02. Platelets trending up to 971 (was 407 on 03/02). Electrolytes and renal status stable - on TPN. Will continue with Zosyn and Diflucan for antimicrobial coverage. Continue with wound vac and drains. CT scan of ab/pelvis to exclude occult abscess formation. Encourage continued activities. 03/07/18 WBC with gradual trend down to 14.3 - was 17.9 on yesterday. Platelets elevated at 961 (was 971 yesterday). Hemoglobin persistently low at 7.6; with continued tachycardia will give 1 unit of pRBC. Electrolytes and renal status stable - on TPN. Will continue with Zosyn for antimicrobial coverage; Dr Gomez added Vancomycin and increased Diflucan to 200mg daily. Continue with wound vac and drains. CT scan of ab/pelvis showed possible new abscess formation in the suprapubic region and omental area. Encourage continued activities. 03/08/18 WBC with increase back to 17.1. HGB increased to 8.2 post transfusion yesterday. Pharm recommended changing Zosyn to Meropenem - did agree. Continue vancomycin and Diflucan. Will continue with TPN for nutritional support - NS bolus of 500cc to help with tachycardia. Continue with pain control. 03/09/18 Temp elevations continue. WBC with decrease to 15.6, but increased bands noted. Renal status and electrolytes stable. Continues of Meropenem, vancomycin, and Diflucan for coverage. Dr Gomez plan repeating CT scan with contrast (though NG) tomorrow to check for bowel function and further abscesses. TPN for nutritional and volume support. Continue with MS for pain, add Aspercreme for muscle discomfort. 03/10/18 Temp elevations continue. WBC 16.4. Renal status and electrolytes stable. Little change in overall status. CT ab/pelvis shown abscess with drain in place, however abscess has increased in size. Sx working to have drains flushed. Continues on Meropenem, vancomycin, and Diflucan for coverage. TPN for nutritional and volume support. Will give 500cc NS bolus to help improve BP. 03/11/18 Temp elevations continue. WBC trended down to 14. Renal status and electrolytes stable. Little change in overall status. CT ab/pelvis shown abscess with drain in place, however abscess has increased in size. Sx working to have drains flushed. Continues on Meropenem, vancomycin, and Diflucan for coverage. TPN for nutritional and volume support. Repeat 500cc NS bolus today and add metoprolol for tachycardia as BP allows. Continue pain control. 7/8/18 Temp elevations continue. WBC trended down to 12.7. Renal status and electrolytes stable. Little change in overall status. CT ab/pelvis shown abscess with drain in place, however abscess has increased in size per CT 03/10/18. Sx working to have drains flushed. Continues on Meropenem, vancomycin, and Diflucan for coverage. TPN for nutritional and volume support. Added q12hr metoprolol in attempt to control heart rate, only marginally working and could be titrated if blood pressure allows. Continue pain control. 03/13/18 WBC with trend down, but still with tachycardia and intermittent temp elevations. Continues on Meropenem, vancomycin, and Diflucan for coverage. TPN for nutritional and volume support. Continue pain control. 03/14/18 WBC with elevation to 13.4. CT showing decrease size of abscess. Continues on Meropenem, vancomycin, and Diflucan for coverage. TPN for nutritional and volume support. Electrolytes and renal status stable. Continue pain control. Continue activities as able. 03/15/18 WBC with stable at 13.7. Platelets with decrease to 594. Less temp elevations seen. Continues on Meropenem, vancomycin, and Diflucan for coverage. TPN for nutritional and volume support. Electrolytes and renal status stable. Dr Gomez trying NG clamping and clear liquids. Continue pain control. Continue activities as able. 03/16/18 WBC with decrease to 11.7. Platelets with decrease to 546. Less temp elevations seen. Continues on Meropenem, vancomycin, and Diflucan for coverage. TPN for nutritional and volume support. Electrolytes and renal status stable. NG removed; clear liquids. 03/17/18 WBC with decrease to 10.1. Platelets with decrease to 529. Less temp elevations seen. Evaluated by Dr Ac today - vancomycin stopped and changed meropenem to Zosyn and continued Diflucan. TPN for nutritional and volume support. Electrolytes and renal status stable. Advanced to regular diet but oral drive low. HGB variable, but trend down. Will give 1 unit pRBC due to continued tachycardia in post op patent. Continue pain control. Continue activities as able - walking in halls with nursing help. 03/18/2018 White blood cell count today is up mildly to 12.1. Bands are up to 7 from one yesterday. He has been afebrile over 24 hours. Hemoglobin improved to 9.5 up from 7.1 yesterday. He received 1 unit of blood yesterday. He does have mildly elevated phosphorus and magnesium. Discussed with pharmacy. The rate of his TPN will be decreased. Will recheck phosphorus and magnesium tomorrow. Repeat INR tomorrow. Repeat CBC and renal panel tomorrow. Advance diet as tolerated. Will try oral supplements. Continue ambulation with assist. The patient continues to have persistent tachycardia this hospital course, but rate is slowly improving. No real change with transfusion of 1 unit of blood. Recheck C-reactive protein tomorrow Discussed case with CCU nursing. We'll check a vitamin B-12 tomorrow regarding borderline low B-12 level Greater than 40 minutes of critical care time spent seeing and evaluating the patient in determining care plan. 03/19/2018 White blood cell count continues to increase and is 16.5 today. Bands are 6 down from 7 yesterday. Hemoglobin has improved to 10.9. Patient remains afebrile. C-reactive protein has decreased from 181 down to 75. We'll continue on fluconazole and Zosyn for intra-abdominal abscesses. Advance diet as tolerated. Continue TPN for now, he will receive a customized formula with no phosphorus and decreased magnesium and calcium. Continue ambulation with assist Recheck CBC with manual differential, renal panel, magnesium tomorrow. 03/20/2018 White blood cell count continues to increase and is 18.8 today from 16.8 yesterday. Bands are 1 down from 6 yesterday. Temperature currently is 99.9. Dr. Gomez has ordered CT abdomen with contrast. The patient is currently on day 4 of Zosyn. He has been on fluconazole since at least February 23. Meropenem was discontinued March 18. Continue TPN for now, he is on a customized formula. Continue ambulation with assist Recheck CBC with manual differential, renal panel, magnesium tomorrow. Discussed with the patient's nurse and family. 03/21/18 CT abdomen with contrast obtained yesterday and shows a decrease in size of the intra-abdominal abscesses with no new abscess formation. White count is essentially stable from yesterday. The patient remains afebrile. He continues on fluconazole which was started February 23 and Zosyn which was started March 17. Prior to being on Zosyn, he was on meropenem but this was discontinued March 18 He continues to have tachycardia, but urine output remains stable. Fluid boluses in the past have not improved tachycardia. He does not appear to be in pain or anxious at this time. He is on fentanyl patch for pain and has when necessary medication for pain and anxiety. Will check TSH and reflex T4. 03/22/18 Stable, TSH normal. Mcdermott catheter discontinued. Pain well-controlled; taking by mouth well. 03/23/18 Oral intake improving, has been on a regular diet for approximately 5 days now and is eating meals well. Will discuss tapering TPN off with surgery. Renal function, hemoglobin, and blood pressure all stable. Persistent tachycardia, patient tolerates well-does not respond to additional fluids and patient does not appear to be in pain. Continue fluconazole and Zosyn-antibiotics under the management of Dr. Ac. 03/24/18 Discontinuing TPN today; stable to transfer out of ICU. Otherwise stable. 03/25/18 Doing well, TPN discontinued yesterday. Blood sugars stable following discontinuation of TPN. Accu-Cheks DC'd. 03/25/18 Stable, no change in therapy. 03/26/[address] Ac - Continue Zosyn and fluconazole. He will need at least 2 weeks of antibiotics, but he might require more. I would recommend repeat CT in a couple weeks to make sure the abscesses are resolved before stopping antibiotics. Will change the fluconazole to po. WBC normal. Hgb 8.9. CRP increased to 112.6 but peaked at 182 earlier in the month Ongoing tachycardia - cortisol level normal at 16. Trial low-dose beta eugene ( metoprolol 6.25 mg twice a day) to suppress tachycardia
--- NOTE | 2018-03-28 16:54 | Progress Note ---
- Date 03/28/18 Subjective: F/U: Toxic Megacolon, Perforation of splenic flexure, Multiple areas of intraabdominal abscess formation Sitting up in bed, listening to music. Parents at bedside. Making improvements. Has been eating well-no nausea or emesis. Not having temp elevations. Last white count normal. Pain varies. Breathing well. Objective Vital signs: Temperature 98.9 F 03/28/18 15:48 Pulse Rate 116 H 03/28/18 15:56 Respiratory Rate 20 03/28/18 15:48 Blood Pressure 111/69 03/28/18 15:48 Pulse Oximetry 96 03/28/18 15:48 Rhythm: Sinus Tachycardia Height/Weight/BMI: Height 1.75 m Weight 60.2 kg Body Mass Index 22.5 - Constitutional Present: well developed, thin, cooperative. Absent: agitated, somnolent - Routine HEENT Exam Head: Present: normocephalic, atraumatic Eye: Present: EOMI, PERRL - Routine Respiratory Exam Present: CTA bilaterally. Absent: respiratory distress, wheezes, crackles - Routine Cardiovascular Exam Present: no murmur, tachycardia (Regular) - Routine Abdominal Exam Present: soft, non distended. Absent: normoactive bowel sounds (Decreased) - Routine Extremities Exam Present: no edema, pulses intact. Absent: cyanosis, clubbing Comments: SCD in place - Routine Musculoskeletal Exam Musculoskeletal: Present: no clubbing or cyanosis - Routine Skin Exam Present: dry, warm - Routine Neurological Exam Present: alert, CN II-XII intact, moving all extremities, vision grossly intact , hearing grossly intact - Routine Psychiatric Exam Present: normal affect, cooperative Results - Labs CBC & Chem 7: 03/27/18 03:40 03/25/18 08:10 Microbiology Results: Microbiology 03/01/18 18:56 Abdomen, Left Upper Gram Stain - Final 03/01/18 18:56 Abdomen, Left Upper Surgical Culture - Final Escherichia coli Anaerobic Gram-Negative Bhanu Anaerobic Gram-Positive Cocci 02/23/18 20:15 Peripheral/Iv Start Gram Stain - Final Not performed 02/23/18 20:15 Peripheral/Iv Start Blood Culture - Final No Growth After 5 Days 02/23/18 20:05 Peripheral/Iv Start Gram Stain - Final Not performed 02/23/18 20:05 Peripheral/Iv Start Blood Culture - Final No Growth After 5 Days 02/20/18 20:07 Peripheral/Iv Start Blood Culture - Final No Growth After 5 Days Assessment and Plan (1) Megacolon Problem details: Toxic megacolon Current visit: Yes Status: Resolved (2) Perforation of colon Problem details: Perforation of the splenic flexure due to ischemic changes Current visit: Yes Status: Acute Assessment and Plan: Assessment 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 On meropenem 03/08-03/17, Vancomycin 03/07-03/17; Zosyn initiated on March 18. Tachycardia -persistent during the hospital course Severe constipation-resolved Severe sepsis -resolved Fever Severe iron deficiency anemia-received IV iron 02/25/2018 and 03/04/2018. He has had a total of 6 units of blood, he received his last unit 03/17/2018 Autism Dental problems Hypophosphatemia-resolved Hyperphosphatemia-on TPN Hypermagnesemia-on TPN-resolved Hypokalemia (Not POA) -resolved LLL atelectasis Acute kidney injury with oliguria-postop -resolved Hyperkalemia (Not POA) -resolved Thrombocytosis (Not POA) Mild elevation of INR of 1.39 on 03/19/2018 Plan Clinically improving. Oral drive doing well. Heart rate with slight decrease since starting Coreg. Continue with Zosyn and fluconazole. Continue with wound vac and drains - anticipate repeat CT on 03/30. Encourage ambulation to help strength. Will recheck CBC in am due resolving leukocytosis. Check BMP in am due to medication use. Case discussed with patient's parents. Time spent with patient care 25 minutes. DVT Prophylaxis: SCD's, Lovenox GI Prophylaxis: Protonix Resuscitation Status: Full Code - Time spent with patient Time with patient PN: 25 minutes - Physician Narrative Physician: Daniel Stevens MD Narrative: Date: 03/28/18 Time: 1651 Hospital Course Summary Disclaimer: The visit summary below is not to be considered part of the above Progress Note. Hospital Course: 02/20/18 Admit, CCU. Bowel rest - NPO. Cont IVF - 1/2 NS with Na of 144. Consult Dr. Gomez for mgt. Sx management with Protonix, morphine, Zofran. Cont IVF for tachycardia; sepsis. Repeat lactate. Cont Zosyn for bowel coverage. Follow BC results. Iron w/u in progress. Type & screen ordered. D/W with Dr. Stevens and RN. 02/22/18 Gastrografin enema 02/21 with copious stool resulting. However, still with stool in rectal vault. Deferring further management to surgery team, await recs. Cont Zosyn given bandemia, tachycardia and concern for toxic megacolon. 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 Clinically deteriorating. Going for surgery for perforation/free air. Near total colectomy performed. Became hypotensive, tachycardic with rates into 180s. Aggressively fluid resuscitated. 02/24/18 UOP, tachycardia improved. Cont abx. Initiate TPN. Monitoring for return of bowel fxn. 02/25/18 Given Kphos Transfused another 1U PRBCs. Stopped LR. Surgery to trial clamping NGT. Intermittently febrile- rectal Tylenol. 02/26/18 Did have fever overnight. Has tolerated NGT clamping. No O2 requirements. No N/V /CP. Hasn't been able to perform IS very well. 02/27/18 Remains on TPN, tolerating limited oral liquids earlier today however resultant emesis has required resumption of NG suction. Good output per ostomy; 2400 mL output reported during prior 24-hour period. Hemoglobin drifting down, ongoing hypokalemia-post being reassessed this afternoon. Potassium increased and TPN but may require supplemental boluses due to potassium lost in stool and emesis. Persistent tachycardia-may require additional blood transfusion. Remains on Zosyn for peritonitis; chest x-ray with pleural effusion but no evidence of pneumonia. May require repeat CT abdomen/pelvis to exclude intra-abdominal abscess. 02/28/18 Remains on TPN, electrolytes stable. Good urine output per ostomy but continues to have high volume output per NG. Output significantly higher than input, weight down, ongoing tachycardia--> 1 L fluid bolus tonight. Anticipate ongoing need for fluids to match fluid losses. CT abdomen/pelvis discussed with radiology this evening and subsequently with Dr. Hills; will review further with radiology tomorrow to determine if drainage can be performed of the subphrenic abscess percutaneously or if surgical drainage/washout will be needed due to presence of multiple smaller fluid collections suggestive of early abscesses. Dr. Hills notified patient 's parents of findings. Hemoglobin continues to drift down very slowly, may be slightly hemoconcentrated at present. Type and screen in a.m. Anticipating transfusion in the next 1-2 days. 03/01/18 OP Day - Exploratory laparotomy, drainage of multiple intraabdominal abscesses, fecal disimpaction, intraoperative flexible proctoscopy. Subdiaphragmatic abscess and left upper quadrant-discussed with radiology and message subsequently relayed to Dr. Hills regarding potential risk of percutaneous drainage. Patient tenably scheduled to return to the operating room later today. Several very small extensive gas in the pelvis without clear room enhancement to suggest abscess, may simply be postoperative change. Remains on TPN, electrolytes stable. Good urine output per ostomy but continues to have high volume output per NG. Output significantly higher than input, weight down, ongoing tachycardia--> 1 L fluid bolus this a.m. and continue normal saline at 100 mL per hour. 2 units PRBCs matched preoperatively; one being given prior to surgery for hemoglobin 7.4. 03/02/18 s/p ex lap with placement of drains by Dr. Hills. Febrile before surgery. WBC up post-op. Wound cx growing GPC, GNR, GPR. Continue Zosyn Remains on TPN, reduce K+. Good urine output. Output per NG down. Continued tachycardia. Continue IVF and treat pain. Output significantly higher than input, weight down, ongoing tachycardia--> 1 L fluid bolus this a.m. and continue normal saline at 100 mL per hour. Anticipate ongoing need for fluids to match fluid losses. 1 unit PRBCs given 03/01. Total of 4 units transfused Ferrlecit dose given 02/25, plan to repeat dose 03/04. Discussed with nursing who provide supplemental history; mother updated. Prognosis guarded. 03/03/18 s/p ex lap 03/01 with placement of drains by Dr. Hills. Afebrile and WBC down. Wound cx growing GPC, GNR, GPR. Continue Zosyn and fluconazole Continue TPN, K+ improved. Good urine output. Output per NG and ostomy down since 03/01 ex lap. Continued tachycardia. Continue IVF and treat pain. ? whether anxious. Trial of Ativan Anticipate ongoing need for fluids to match fluid losses. 1 unit PRBCs given 03/01. Total of 4 units transfused Ferrlecit dose given 02/25, plan to repeat dose 03/04. Discussed with nursing who provide supplemental history; mother updated. Prognosis guarded. 03/04/18 s/p ex lap 03/01 with placement of drains by Dr. Hills. Fever and WBC up slightly. Wound cx growing e coli, sensitive to Zosyn. Fluconazole. Check CXR Continue TPN, K+ improved. Good urine output. Output per NG and ostomy down since 03/01 ex lap. Continued tachycardia. Hold LR as patient with trace edema. Start fentanyl patch for pain. He got 28 mg iv morphine yesterday. Starting fentanyl at 12mcg d /t possible interaction with Fluconazole. 1 unit PRBCs given 03/01. Total of 4 units transfused Ferrlicit dose given 02/25, plan to repeat dose 03/04. Discussed with nursing who provide supplemental history. Encourage activity. Prognosis guarded 03/05/18 s/p ex lap 03/01 with placement of drains by Dr. Hills. Wound VAC. Fever. WBC down slightly. Wound cx growing e coli, sensitive to Zosyn. Fluconazole. Check CXR. Continue TPN, decrease Mg. Good urine output. Output per NG up yesterday. Continued tachycardia. Holding LR as patient with trace edema. Appears more comfortable with fentanyl patch for pain. Platelets trending up. Check inflammatory markers. If continued fever, consider repeating CT Encourage activity. 03/06/18 Temp elevations to 100.5 - 101.7. Persistent tachycardia in 130s. BP 100's. WBC with gradual trend down to 17.9 - was 25.0 on 03/02. Platelets trending up to 971 (was 407 on 03/02). Electrolytes and renal status stable - on TPN. Will continue with Zosyn and Diflucan for antimicrobial coverage. Continue with wound vac and drains. CT scan of ab/pelvis to exclude occult abscess formation. Encourage continued activities. 03/07/18 WBC with gradual trend down to 14.3 - was 17.9 on yesterday. Platelets elevated at 961 (was 971 yesterday). Hemoglobin persistently low at 7.6; with continued tachycardia will give 1 unit of pRBC. Electrolytes and renal status stable - on TPN. Will continue with Zosyn for antimicrobial coverage; Dr Gomez added Vancomycin and increased Diflucan to 200mg daily. Continue with wound vac and drains. CT scan of ab/pelvis showed possible new abscess formation in the suprapubic region and omental area. Encourage continued activities. 03/08/18 WBC with increase back to 17.1. HGB increased to 8.2 post transfusion yesterday. Pharm recommended changing Zosyn to Meropenem - did agree. Continue vancomycin and Diflucan. Will continue with TPN for nutritional support - NS bolus of 500cc to help with tachycardia. Continue with pain control. 03/09/18 Temp elevations continue. WBC with decrease to 15.6, but increased bands noted. Renal status and electrolytes stable. Continues of Meropenem, vancomycin, and Diflucan for coverage. Dr Gomez plan repeating CT scan with contrast (though NG) tomorrow to check for bowel function and further abscesses. TPN for nutritional and volume support. Continue with MS for pain, add Aspercreme for muscle discomfort. 03/10/18 Temp elevations continue. WBC 16.4. Renal status and electrolytes stable. Little change in overall status. CT ab/pelvis shown abscess with drain in place, however abscess has increased in size. Sx working to have drains flushed. Continues on Meropenem, vancomycin, and Diflucan for coverage. TPN for nutritional and volume support. Will give 500cc NS bolus to help improve BP. 03/11/18 Temp elevations continue. WBC trended down to 14. Renal status and electrolytes stable. Little change in overall status. CT ab/pelvis shown abscess with drain in place, however abscess has increased in size. Sx working to have drains flushed. Continues on Meropenem, vancomycin, and Diflucan for coverage. TPN for nutritional and volume support. Repeat 500cc NS bolus today and add metoprolol for tachycardia as BP allows. Continue pain control. 03/12/18 Temp elevations continue. WBC trended down to 12.7. Renal status and electrolytes stable. Little change in overall status. CT ab/pelvis shown abscess with drain in place, however abscess has increased in size per CT 03/10/18. Sx working to have drains flushed. Continues on Meropenem, vancomycin, and Diflucan for coverage. TPN for nutritional and volume support. Added q12hr metoprolol in attempt to control heart rate, only marginally working and could be titrated if blood pressure allows. Continue pain control. 03/13/18 WBC with trend down, but still with tachycardia and intermittent temp elevations. Continues on Meropenem, vancomycin, and Diflucan for coverage. TPN for nutritional and volume support. Continue pain control. 03/14/18 WBC with elevation to 13.4. CT showing decrease size of abscess. Continues on Meropenem, vancomycin, and Diflucan for coverage. TPN for nutritional and volume support. Electrolytes and renal status stable. Continue pain control. Continue activities as able. 03/15/18 WBC with stable at 13.7. Platelets with decrease to 594. Less temp elevations seen. Continues on Meropenem, vancomycin, and Diflucan for coverage. TPN for nutritional and volume support. Electrolytes and renal status stable. Dr Gomez trying NG clamping and clear liquids. Continue pain control. Continue activities as able. 03/16/18 WBC with decrease to 11.7. Platelets with decrease to 546. Less temp elevations seen. Continues on Meropenem, vancomycin, and Diflucan for coverage. TPN for nutritional and volume support. Electrolytes and renal status stable. NG removed; clear liquids. 03/17/18 WBC with decrease to 10.1. Platelets with decrease to 529. Less temp elevations seen. Evaluated by Dr Ac today - vancomycin stopped and changed meropenem to Zosyn and continued Diflucan. TPN for nutritional and volume support. Electrolytes and renal status stable. Advanced to regular diet but oral drive low. HGB variable, but trend down. Will give 1 unit pRBC due to continued tachycardia in post op patent. Continue pain control. Continue activities as able - walking in halls with nursing help. 03/18/2018 White blood cell count today is up mildly to 12.1. Bands are up to 7 from one yesterday. He has been afebrile over 24 hours. Hemoglobin improved to 9.5 up from 7.1 yesterday. He received 1 unit of blood yesterday. He does have mildly elevated phosphorus and magnesium. Discussed with pharmacy. The rate of his TPN will be decreased. Will recheck phosphorus and magnesium tomorrow. Repeat INR tomorrow. Repeat CBC and renal panel tomorrow. Advance diet as tolerated. Will try oral supplements. Continue ambulation with assist. The patient continues to have persistent tachycardia this hospital course, but rate is slowly improving. No real change with transfusion of 1 unit of blood. Recheck C-reactive protein tomorrow Discussed case with CCU nursing. We'll check a vitamin B-12 tomorrow regarding borderline low B-12 level Greater than 40 minutes of critical care time spent seeing and evaluating the patient in determining care plan. 03/19/2018 White blood cell count continues to increase and is 16.5 today. Bands are 6 down from 7 yesterday. Hemoglobin has improved to 10.9. Patient remains afebrile. C-reactive protein has decreased from 181 down to 75. We'll continue on fluconazole and Zosyn for intra-abdominal abscesses. Advance diet as tolerated. Continue TPN for now, he will receive a customized formula with no phosphorus and decreased magnesium and calcium. Continue ambulation with assist Recheck CBC with manual differential, renal panel, magnesium tomorrow. 03/20/2018 White blood cell count continues to increase and is 18.8 today from 16.8 yesterday. Bands are 1 down from 6 yesterday. Temperature currently is 99.9. Dr. Gomez has ordered CT abdomen with contrast. The patient is currently on day 4 of Zosyn. He has been on fluconazole since at least February 23. Meropenem was discontinued March 18. Continue TPN for now, he is on a customized formula. Continue ambulation with assist Recheck CBC with manual differential, renal panel, magnesium tomorrow. Discussed with the patient's nurse and family. 03/21/18 CT abdomen with contrast obtained yesterday and shows a decrease in size of the intra-abdominal abscesses with no new abscess formation. White count is essentially stable from yesterday. The patient remains afebrile. He continues on fluconazole which was started February 23 and Zosyn which was started March 17. Prior to being on Zosyn, he was on meropenem but this was discontinued March 18 He continues to have tachycardia, but urine output remains stable. Fluid boluses in the past have not improved tachycardia. He does not appear to be in pain or anxious at this time. He is on fentanyl patch for pain and has when necessary medication for pain and anxiety. Will check TSH and reflex T4. 03/22/18 Stable, TSH normal. Mcdermott catheter discontinued. Pain well-controlled; taking by mouth well. 03/23/18 Oral intake improving, has been on a regular diet for approximately 5 days now and is eating meals well. Will discuss tapering TPN off with surgery. Renal function, hemoglobin, and blood pressure all stable. Persistent tachycardia, patient tolerates well-does not respond to additional fluids and patient does not appear to be in pain. Continue fluconazole and Zosyn-antibiotics under the management of Dr. Ac. 03/24/18 Discontinuing TPN today; stable to transfer out of ICU. Otherwise stable. 03/25/18 Doing well, TPN discontinued yesterday. Blood sugars stable following discontinuation of TPN. Accu-Cheks DC'd. 03/26/18 Stable, no change in therapy. 03/27/[address] Ac - Continue Zosyn and fluconazole. He will need at least 2 weeks of antibiotics, but he might require more. I would recommend repeat CT in a couple weeks to make sure the abscesses are resolved before stopping antibiotics. Will change the fluconazole to po. WBC normal. Hgb 8.9. CRP increased to 112.6 but peaked at 182 earlier in the month Ongoing tachycardia - cortisol level normal at 16. Trial low-dose beta eugene ( metoprolol 6.25 mg twice a day) to suppress tachycardia. 03/28/[address] doing well. Heart rate with slight decrease since starting Coreg. Continue with Zosyn and fluconazole. Continue with wound vac and drains - anticipate repeat CT on 03/30. Encourage ambulation to help strength.
--- NOTE | 2018-03-28 20:12 | Progress Note ---
DATE OF VISIT 03/28/2018 REASON FOR VISIT Covering surgical care for Dr. Gomez. SUBJECTIVE Arslan says that he is doing well today and that his abdomen is "good." When asked, he does still report abdominal pain. He has been eating a little bit more with his meals per his mother. OBJECTIVE VITAL SIGNS: Afebrile for the last 24 hours. Vital signs stable with lowest pulse rate at 103. He is on room air. GENERAL: The patient is awake and alert. He is in no acute distress. ABDOMEN: Soft, appropriately tender. His wound VAC remains in place with a good seal. Drains have clear liquid output. His ostomy has significant soft brown output. IMPRESSION Status post exploratory laparotomy x 2 with near-total colectomy and end colostomy with Mendoza's pouch due to colonic rupture and feculent peritonitis. He is taking slightly more oral intake. PLAN 1. Await repeat CT scan on to decide if his drains can be removed. 2. Continue oral intake. 3. Continue antimicrobial coverage until the evaluation by Infectious Disease at the end of the week. SYLVAIN
[2018-03-29] MEDS: PIPERACILLIN/TAZOBACTAM 3.375 GM in D5W 100 ML IV SCH ×4 (03:16→20:13)
[2018-03-29] MEDS: SALINE FLUSH 10ml SYRINGE IVF PRN ×2 (04:53→08:40)
[2018-03-29] MEDS: ACETAMINOPHEN 650 MG/20.3 ML SOLUTION PO PRN (05:22)
[2018-03-29] MEDS: PANTOPRAZOLE 40 MG TABLET PO SCH (05:31)
[2018-03-29] MEDS: ENOXAPARIN 40 MG/0.4 ML INJECTION SQ SCH (08:37)
[2018-03-29] MEDS: FLUCONAZOLE 100 MG TABLET PO SCH (08:37)
--- NOTE | 2018-03-29 09:38 | ID Progress Note ---
Subjective Date: 03/29/18 Subjective: Arslan was sitting up in bed when I walked in this morning. He appears calm, but asked me to leave. He did allow me to exam him some. Reports continued abdominal pain, but states he's eating. Says his mother will be here later. Exam Vital Signs: Temperature 98.4 F 03/29/18 07:26 Pulse Rate 118 H 03/29/18 08:00 Respiratory Rate 18 03/29/18 07:26 Blood Pressure 117/71 03/29/18 07:26 Pulse Oximetry 98 03/29/18 07:26 Height/Weight/BMI: Height 1.75 m Weight 60.2 kg Body Mass Index 22.5 - Constitutional Present: no acute distress, well nourished, well developed, thin - Routine HEENT Exam Head: Present: normocephalic, atraumatic Eye: Present: EOMI, PERRL ENT: Present: mucous membranes moist, oropharynx clear - Routine Neck Exam Present: supple - Routine Respiratory Exam Present: CTA bilaterally - Routine Cardiovascular Exam Present: RRR - Routine Abdominal Exam Present: soft, non distended Comments: hypoactive bowel sounds. 3 JPs on L side of abdomen with minimal serous drainage - Routine Exam Comments: no eric - Routine Extremities Exam Absent: cyanosis, clubbing, edema, joint swelling Comments: PICC site ok - Routine Skin Exam Absent: rash - Routine Neurological Exam Present: alert - Routine Psychiatric Exam Comments: flat affect Results - Labs CBC & Chem 7: 03/29/18 04:52 03/29/18 04:52 Microbiology Results: Microbiology 03/01/18 18:56 Abdomen, Left Upper Gram Stain - Final 03/01/18 18:56 Abdomen, Left Upper Surgical Culture - Final Escherichia coli Anaerobic Gram-Negative Bhanu Anaerobic Gram-Positive Cocci 02/23/18 20:15 Peripheral/Iv Start Gram Stain - Final Not performed 02/23/18 20:15 Peripheral/Iv Start Blood Culture - Final No Growth After 5 Days 02/23/18 20:05 Peripheral/Iv Start Gram Stain - Final Not performed 02/23/18 20:05 Peripheral/Iv Start Blood Culture - Final No Growth After 5 Days 02/20/18 20:07 Peripheral/Iv Start Blood Culture - Final No Growth After 5 Days Impression: Sepsis, secondary to GI source Fever, leukocytosis, improving Sinus tachycardia Perforation of splenic flexure due to ischemia, s/p near total colectomy with ostomy placement 02/23/18, fecal peritonitis noted S/p operative drainage of intra-abdominal abscesses and fecal disimpaction , cultures with E. coli, anaerobic GNR, anaerobic GPC. Severe iron deficiency anemia autism H/o toxic megacolon Recommendation: Continue Zosyn and fluconazole. Repeat CT is planned for tomorrow. If there's no evidence of continued intra-abdominal fluid or inflammation, would stop his antibiotics.
[2018-03-29] MEDS ORDERED: IRON - PHARMACY CONSULT MC ONE (10:36)
--- NOTE | 2018-03-29 11:23 | Pharmacy Consult ---
Pharmacy Consult-Iron - Laboratory Information [facility] 02/20/18 02/20/18 02/21/18 15:25 20:07 04:11 Hgb 7.5 L 6.6 L D Hct 27.4 L 24.4 L Iron 11 L TIBC 342 % Saturation 3 L 02/21/18 02/22/18 02/23/18 10:12 04:58 03:53 Hgb 8.0 L D 7.8 L 8.9 L D Hct 27.6 L D 30.7 L D Iron TIBC % Saturation 02/23/18 02/24/18 02/25/18 17:29 04:13 04:20 Hgb 12.7 L D 9.0 L D 6.7 L D Hct 42.3 D 30.6 L D 22.9 L D Iron TIBC % Saturation 02/25/18 02/26/18 02/27/18 14:43 04:25 04:07 Hgb 7.5 L D 7.8 L 7.4 L Hct 25.6 L D 24.6 L Iron TIBC % Saturation 02/27/18 02/28/18 03/01/18 17:13 04:21 04:15 Hgb 8.4 L D 7.3 L D 7.4 L Hct 27.7 L D 24.3 L D 25.0 L Iron TIBC % Saturation 03/01/18 03/02/18 03/03/18 22:27 04:23 04:06 Hgb 9.6 L D 9.7 L 8.0 L D Hct 30.4 L D 26.4 L D Iron TIBC % Saturation 03/04/18 03/05/18 03/06/18 04:18 04:37 04:04 Hgb 8.1 L 8.2 L 7.6 L Hct 26.2 L 26.1 L 25.4 L Iron TIBC % Saturation 03/07/18 03/07/18 03/08/18 04:45 16:03 04:34 Hgb 7.6 L 8.3 L 8.2 L Hct 26.1 L 26.7 L Iron TIBC % Saturation 03/09/18 03/10/18 03/11/18 04:16 04:34 04:22 Hgb 7.6 L 7.4 L 7.3 L Hct 25.7 L 25.0 L 24.6 L Iron TIBC % Saturation 03/12/18 03/13/18 03/14/18 07:03 04:11 04:00 Hgb 7.4 L 7.0 L 7.3 L Hct 24.4 L 22.8 L 25.0 L Iron TIBC % Saturation 03/15/18 03/16/18 03/17/18 07:00 04:48 05:11 Hgb 7.4 L 7.3 L 7.1 L Hct 24.7 L 24.6 L 24.9 L Iron TIBC % Saturation 03/18/18 03/19/18 03/20/18 04:01 04:29 04:27 Hgb 9.5 L D 10.9 L D 10.3 L Hct 31.5 L D 35.7 L D 33.7 L Iron TIBC % Saturation 03/21/18 03/22/18 03/23/18 04:06 04:18 04:49 Hgb 9.6 L 9.3 L 9.4 L Hct 32.2 L 31.1 L 31.4 L Iron TIBC % Saturation 03/24/18 03/27/18 03/29/18 03:59 03:40 04:52 Hgb 9.0 L 8.9 L 9.6 L Hct 30.7 L 30.0 L 32.6 L Iron TIBC % Saturation - Consult Information Iron consult per pharmacy noted by Dr Stevens for Mr Albright. Due to nationwide shortage of iron dextran, will give sodium ferric gluconate complex 125mg three times a week for 1 week. This will supply 0.375gms of elemental IV iron. Thank you.
--- NOTE | 2018-03-29 11:26 | Progress Note ---
- Date 03/29/18 Subjective: F/U: Toxic Megacolon, Perforation of splenic flexure, Multiple areas of intraabdominal abscess formation Sitting in bed; worked with therapy earlier - tolerating well. Oral drive stable. Breathing well. Not having temp elevations. BP stable. Objective Vital signs: Temperature 98.4 F 03/29/18 07:26 Pulse Rate 118 H 03/29/18 08:00 Respiratory Rate 18 03/29/18 07:26 Blood Pressure 117/71 03/29/18 07:26 Pulse Oximetry 98 03/29/18 07:26 Rhythm: Sinus Tachycardia Height/Weight/BMI: Height 1.75 m Weight 60.2 kg Body Mass Index 22.5 - Constitutional Present: well developed, obese. Absent: combative, agitated, somnolent, obtunded - Routine HEENT Exam Head: Present: normocephalic, atraumatic Eye: Present: EOMI, PERRL ENT: Present: mucous membranes moist - Routine Respiratory Exam Present: CTA bilaterally. Absent: respiratory distress - Routine Cardiovascular Exam Present: tachycardia (Regular) - Routine Abdominal Exam Present: soft, normoactive bowel sounds, non distended - Routine Extremities Exam Present: no edema, pulses intact. Absent: cyanosis, clubbing - Routine Musculoskeletal Exam Musculoskeletal: Present: no clubbing or cyanosis - Routine Skin Exam Present: dry, warm - Routine Neurological Exam Present: alert, moving all extremities, vision grossly intact, hearing grossly intact. Absent: motor deficit - Routine Psychiatric Exam Present: normal affect, cooperative Results - Labs CBC & Chem 7: 03/29/18 04:52 03/29/18 04:52 Microbiology Results: Microbiology 03/01/18 18:56 Abdomen, Left Upper Gram Stain - Final 03/01/18 18:56 Abdomen, Left Upper Surgical Culture - Final Escherichia coli Anaerobic Gram-Negative Bhanu Anaerobic Gram-Positive Cocci 02/23/18 20:15 Peripheral/Iv Start Gram Stain - Final Not performed 02/23/18 20:15 Peripheral/Iv Start Blood Culture - Final No Growth After 5 Days 02/23/18 20:05 Peripheral/Iv Start Gram Stain - Final Not performed 02/23/18 20:05 Peripheral/Iv Start Blood Culture - Final No Growth After 5 Days 02/20/18 20:07 Peripheral/Iv Start Blood Culture - Final No Growth After 5 Days Assessment and Plan (1) Megacolon Problem details: Toxic megacolon Current visit: Yes Status: Resolved (2) Perforation of colon Problem details: Perforation of the splenic flexure due to ischemic changes Current visit: Yes Status: Acute Assessment and Plan: Assessment 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 On meropenem 03/08-03/17, Vancomycin 03/07-03/17; Zosyn initiated on March 18. Tachycardia -persistent during the hospital course Severe constipation-resolved Severe sepsis -resolved Fever Severe iron deficiency anemia-received IV iron 02/25/2018 and 03/04/2018. He has had a total of 6 units of blood, he received his last unit 03/17/2018 Autism Dental problems Hypophosphatemia-resolved Hyperphosphatemia-on TPN Hypermagnesemia-on TPN-resolved Hypokalemia (Not POA) -resolved LLL atelectasis Acute kidney injury with oliguria-postop -resolved Hyperkalemia (Not POA) -resolved Thrombocytosis (Not POA) Mild elevation of INR of 1.39 on 03/19/2018 Plan Clinically improving. Oral drive doing well. Functional status improving with therapy. Continue with Zosyn and fluconazole. Continue with wound vac and drains - anticipate repeat CT on 03/30. Will give IV Iron due to low iron levels - discussed with Pharm. Will have dose today, 03/31, and 04/03. Oral potassium 20mEq as K 3.5 this am. Encourage ambulation to help strength. Encourage oral intake. Case discussed with patient's parents. Time spent with patient care 25 minutes. DVT Prophylaxis: SCD's, Lovenox Resuscitation Status: Full Code - Time spent with patient Time with patient PN: 25 minutes - Physician Narrative Physician: Daniel Stevens MD Narrative: Date: 03/29/18 Time: 1123 Hospital Course Summary Disclaimer: The visit summary below is not to be considered part of the above Progress Note. Hospital Course: 02/20/18 Admit, CCU. Bowel rest - NPO. Cont IVF - 1/2 NS with Na of 144. Consult Dr. Gomez for mgt. Sx management with Protonix, morphine, Zofran. Cont IVF for tachycardia; sepsis. Repeat lactate. Cont Zosyn for bowel coverage. Follow BC results. Iron w/u in progress. Type & screen ordered. D/W with Dr. Stevens and RN. 02/22/18 Gastrografin enema 02/21 with copious stool resulting. However, still with stool in rectal vault. Deferring further management to surgery team, await recs. Cont Zosyn given bandemia, tachycardia and concern for toxic megacolon. 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 Clinically deteriorating. Going for surgery for perforation/free air. Near total colectomy performed. Became hypotensive, tachycardic with rates into 180s. Aggressively fluid resuscitated. 02/24/18 UOP, tachycardia improved. Cont abx. Initiate TPN. Monitoring for return of bowel fxn. 02/25/18 Given Kphos Transfused another 1U PRBCs. Stopped LR. Surgery to trial clamping NGT. Intermittently febrile- rectal Tylenol. 02/26/18 Did have fever overnight. Has tolerated NGT clamping. No O2 requirements. No N/V /CP. Hasn't been able to perform IS very well. 02/27/18 Remains on TPN, tolerating limited oral liquids earlier today however resultant emesis has required resumption of NG suction. Good output per ostomy; 2400 mL output reported during prior 24-hour period. Hemoglobin drifting down, ongoing hypokalemia-post being reassessed this afternoon. Potassium increased and TPN but may require supplemental boluses due to potassium lost in stool and emesis. Persistent tachycardia-may require additional blood transfusion. Remains on Zosyn for peritonitis; chest x-ray with pleural effusion but no evidence of pneumonia. May require repeat CT abdomen/pelvis to exclude intra-abdominal abscess. 02/28/18 Remains on TPN, electrolytes stable. Good urine output per ostomy but continues to have high volume output per NG. Output significantly higher than input, weight down, ongoing tachycardia--> 1 L fluid bolus tonight. Anticipate ongoing need for fluids to match fluid losses. CT abdomen/pelvis discussed with radiology this evening and subsequently with Dr. Hills; will review further with radiology tomorrow to determine if drainage can be performed of the subphrenic abscess percutaneously or if surgical drainage/washout will be needed due to presence of multiple smaller fluid collections suggestive of early abscesses. Dr. Hills notified patient 's parents of findings. Hemoglobin continues to drift down very slowly, may be slightly hemoconcentrated at present. Type and screen in a.m. Anticipating transfusion in the next 1-2 days. 03/01/18 OP Day - Exploratory laparotomy, drainage of multiple intraabdominal abscesses, fecal disimpaction, intraoperative flexible proctoscopy. Subdiaphragmatic abscess and left upper quadrant-discussed with radiology and message subsequently relayed to Dr. Hills regarding potential risk of percutaneous drainage. Patient tenably scheduled to return to the operating room later today. Several very small extensive gas in the pelvis without clear room enhancement to suggest abscess, may simply be postoperative change. Remains on TPN, electrolytes stable. Good urine output per ostomy but continues to have high volume output per NG. Output significantly higher than input, weight down, ongoing tachycardia--> 1 L fluid bolus this a.m. and continue normal saline at 100 mL per hour. 2 units PRBCs matched preoperatively; one being given prior to surgery for hemoglobin 7.4. 03/02/18 s/p ex lap with placement of drains by Dr. Hills. Febrile before surgery. WBC up post-op. Wound cx growing GPC, GNR, GPR. Continue Zosyn Remains on TPN, reduce K+. Good urine output. Output per NG down. Continued tachycardia. Continue IVF and treat pain. Output significantly higher than input, weight down, ongoing tachycardia--> 1 L fluid bolus this a.m. and continue normal saline at 100 mL per hour. Anticipate ongoing need for fluids to match fluid losses. 1 unit PRBCs given 03/01. Total of 4 units transfused Ferrlecit dose given 02/25, plan to repeat dose 03/04. Discussed with nursing who provide supplemental history; mother updated. Prognosis guarded. 03/03/18 s/p ex lap 03/01 with placement of drains by Dr. Hills. Afebrile and WBC down. Wound cx growing GPC, GNR, GPR. Continue Zosyn and fluconazole Continue TPN, K+ improved. Good urine output. Output per NG and ostomy down since 03/01 ex lap. Continued tachycardia. Continue IVF and treat pain. ? whether anxious. Trial of Ativan Anticipate ongoing need for fluids to match fluid losses. 1 unit PRBCs given 03/01. Total of 4 units transfused Ferrlecit dose given 02/25, plan to repeat dose 03/04. Discussed with nursing who provide supplemental history; mother updated. Prognosis guarded. 03/04/18 s/p ex lap 03/01 with placement of drains by Dr. Hills. Fever and WBC up slightly. Wound cx growing e coli, sensitive to Zosyn. Fluconazole. Check CXR Continue TPN, K+ improved. Good urine output. Output per NG and ostomy down since 03/01 ex lap. Continued tachycardia. Hold LR as patient with trace edema. Start fentanyl patch for pain. He got 28 mg iv morphine yesterday. Starting fentanyl at 12mcg d /t possible interaction with Fluconazole. 1 unit PRBCs given 03/01. Total of 4 units transfused Ferrlicit dose given 02/25, plan to repeat dose 03/04. Discussed with nursing who provide supplemental history. Encourage activity. Prognosis guarded 03/05/18 s/p ex lap 03/01 with placement of drains by Dr. Hills. Wound VAC. Fever. WBC down slightly. Wound cx growing e coli, sensitive to Zosyn. Fluconazole. Check CXR. Continue TPN, decrease Mg. Good urine output. Output per NG up yesterday. Continued tachycardia. Holding LR as patient with trace edema. Appears more comfortable with fentanyl patch for pain. Platelets trending up. Check inflammatory markers. If continued fever, consider repeating CT Encourage activity. 03/06/18 Temp elevations to 100.5 - 101.7. Persistent tachycardia in 130s. BP 100's. WBC with gradual trend down to 17.9 - was 25.0 on 03/02. Platelets trending up to 971 (was 407 on 03/02). Electrolytes and renal status stable - on TPN. Will continue with Zosyn and Diflucan for antimicrobial coverage. Continue with wound vac and drains. CT scan of ab/pelvis to exclude occult abscess formation. Encourage continued activities. 03/07/18 WBC with gradual trend down to 14.3 - was 17.9 on yesterday. Platelets elevated at 961 (was 971 yesterday). Hemoglobin persistently low at 7.6; with continued tachycardia will give 1 unit of pRBC. Electrolytes and renal status stable - on TPN. Will continue with Zosyn for antimicrobial coverage; Dr Gomez added Vancomycin and increased Diflucan to 200mg daily. Continue with wound vac and drains. CT scan of ab/pelvis showed possible new abscess formation in the suprapubic region and omental area. Encourage continued activities. 03/08/18 WBC with increase back to 17.1. HGB increased to 8.2 post transfusion yesterday. Pharm recommended changing Zosyn to Meropenem - did agree. Continue vancomycin and Diflucan. Will continue with TPN for nutritional support - NS bolus of 500cc to help with tachycardia. Continue with pain control. 03/09/18 Temp elevations continue. WBC with decrease to 15.6, but increased bands noted. Renal status and electrolytes stable. Continues of Meropenem, vancomycin, and Diflucan for coverage. Dr Gomez plan repeating CT scan with contrast (though NG) tomorrow to check for bowel function and further abscesses. TPN for nutritional and volume support. Continue with MS for pain, add Aspercreme for muscle discomfort. 03/10/18 Temp elevations continue. WBC 16.4. Renal status and electrolytes stable. Little change in overall status. CT ab/pelvis shown abscess with drain in place, however abscess has increased in size. Sx working to have drains flushed. Continues on Meropenem, vancomycin, and Diflucan for coverage. TPN for nutritional and volume support. Will give 500cc NS bolus to help improve BP. 03/11/18 Temp elevations continue. WBC trended down to 14. Renal status and electrolytes stable. Little change in overall status. CT ab/pelvis shown abscess with drain in place, however abscess has increased in size. Sx working to have drains flushed. Continues on Meropenem, vancomycin, and Diflucan for coverage. TPN for nutritional and volume support. Repeat 500cc NS bolus today and add metoprolol for tachycardia as BP allows. Continue pain control. 03/12/18 Temp elevations continue. WBC trended down to 12.7. Renal status and electrolytes stable. Little change in overall status. CT ab/pelvis shown abscess with drain in place, however abscess has increased in size per CT 03/10/18. Sx working to have drains flushed. Continues on Meropenem, vancomycin, and Diflucan for coverage. TPN for nutritional and volume support. Added q12hr metoprolol in attempt to control heart rate, only marginally working and could be titrated if blood pressure allows. Continue pain control. 03/13/18 WBC with trend down, but still with tachycardia and intermittent temp elevations. Continues on Meropenem, vancomycin, and Diflucan for coverage. TPN for nutritional and volume support. Continue pain control. 03/14/18 WBC with elevation to 13.4. CT showing decrease size of abscess. Continues on Meropenem, vancomycin, and Diflucan for coverage. TPN for nutritional and volume support. Electrolytes and renal status stable. Continue pain control. Continue activities as able. 03/15/18 WBC with stable at 13.7. Platelets with decrease to 594. Less temp elevations seen. Continues on Meropenem, vancomycin, and Diflucan for coverage. TPN for nutritional and volume support. Electrolytes and renal status stable. Dr Gomez trying NG clamping and clear liquids. Continue pain control. Continue activities as able. 03/16/18 WBC with decrease to 11.7. Platelets with decrease to 546. Less temp elevations seen. Continues on Meropenem, vancomycin, and Diflucan for coverage. TPN for nutritional and volume support. Electrolytes and renal status stable. NG removed; clear liquids. 03/17/18 WBC with decrease to 10.1. Platelets with decrease to 529. Less temp elevations seen. Evaluated by Dr Ac today - vancomycin stopped and changed meropenem to Zosyn and continued Diflucan. TPN for nutritional and volume support. Electrolytes and renal status stable. Advanced to regular diet but oral drive low. HGB variable, but trend down. Will give 1 unit pRBC due to continued tachycardia in post op patent. Continue pain control. Continue activities as able - walking in halls with nursing help. 03/18/2018 White blood cell count today is up mildly to 12.1. Bands are up to 7 from one yesterday. He has been afebrile over 24 hours. Hemoglobin improved to 9.5 up from 7.1 yesterday. He received 1 unit of blood yesterday. He does have mildly elevated phosphorus and magnesium. Discussed with pharmacy. The rate of his TPN will be decreased. Will recheck phosphorus and magnesium tomorrow. Repeat INR tomorrow. Repeat CBC and renal panel tomorrow. Advance diet as tolerated. Will try oral supplements. Continue ambulation with assist. The patient continues to have persistent tachycardia this hospital course, but rate is slowly improving. No real change with transfusion of 1 unit of blood. Recheck C-reactive protein tomorrow Discussed case with CCU nursing. We'll check a vitamin B-12 tomorrow regarding borderline low B-12 level Greater than 40 minutes of critical care time spent seeing and evaluating the patient in determining care plan. 03/19/2018 White blood cell count continues to increase and is 16.5 today. Bands are 6 down from 7 yesterday. Hemoglobin has improved to 10.9. Patient remains afebrile. C-reactive protein has decreased from 181 down to 75. We'll continue on fluconazole and Zosyn for intra-abdominal abscesses. Advance diet as tolerated. Continue TPN for now, he will receive a customized formula with no phosphorus and decreased magnesium and calcium. Continue ambulation with assist Recheck CBC with manual differential, renal panel, magnesium tomorrow. 03/20/2018 White blood cell count continues to increase and is 18.8 today from 16.8 yesterday. Bands are 1 down from 6 yesterday. Temperature currently is 99.9. Dr. Gomez has ordered CT abdomen with contrast. The patient is currently on day 4 of Zosyn. He has been on fluconazole since at least February 23. Meropenem was discontinued March 18. Continue TPN for now, he is on a customized formula. Continue ambulation with assist Recheck CBC with manual differential, renal panel, magnesium tomorrow. Discussed with the patient's nurse and family. 03/21/18 CT abdomen with contrast obtained yesterday and shows a decrease in size of the intra-abdominal abscesses with no new abscess formation. White count is essentially stable from yesterday. The patient remains afebrile. He continues on fluconazole which was started February 23 and Zosyn which was started March 17. Prior to being on Zosyn, he was on meropenem but this was discontinued March 18 He continues to have tachycardia, but urine output remains stable. Fluid boluses in the past have not improved tachycardia. He does not appear to be in pain or anxious at this time. He is on fentanyl patch for pain and has when necessary medication for pain and anxiety. Will check TSH and reflex T4. 03/22/18 Stable, TSH normal. Mcdermott catheter discontinued. Pain well-controlled; taking by mouth well. 03/23/18 Oral intake improving, has been on a regular diet for approximately 5 days now and is eating meals well. Will discuss tapering TPN off with surgery. Renal function, hemoglobin, and blood pressure all stable. Persistent tachycardia, patient tolerates well-does not respond to additional fluids and patient does not appear to be in pain. Continue fluconazole and Zosyn-antibiotics under the management of Dr. Ac. 03/24/18 Discontinuing TPN today; stable to transfer out of ICU. Otherwise stable. 03/25/18 Doing well, TPN discontinued yesterday. Blood sugars stable following discontinuation of TPN. Accu-Cheks DC'd. 03/26/18 Stable, no change in therapy. 03/27/[address] Ac - Continue Zosyn and fluconazole. He will need at least 2 weeks of antibiotics, but he might require more. I would recommend repeat CT in a couple weeks to make sure the abscesses are resolved before stopping antibiotics. Will change the fluconazole to po. WBC normal. Hgb 8.9. CRP increased to 112.6 but peaked at 182 earlier in the month. Ongoing tachycardia - cortisol level normal at 16. Trial low-dose beta eugene ( metoprolol 6.25 mg twice a day) to suppress tachycardia. 03/28/[address] doing well. Heart rate with slight decrease since starting Coreg. Continue with Zosyn and fluconazole. Continue with wound vac and drains. Encourage ambulation to help strength. 03/29/19 Continue with Zosyn and fluconazole. Continue with wound vac and drains - anticipate repeat CT tomorrow. Will give IV Iron due to low iron levels - discussed with Pharm. Will have dose today, 03/31, and 04/03.
[2018-03-29] MEDS: NS FLUSH BAG 500ml IV PRN (11:50)
[2018-03-29] MEDS: SODIUM FERRIC GLUC. COMPLEX 125 MG in NS 100 ML IV SCH (11:50)
[2018-03-30] MEDS: PIPERACILLIN/TAZOBACTAM 3.375 GM in D5W 100 ML IV SCH ×4 (02:22→20:30)
[2018-03-30] MEDS: PANTOPRAZOLE 40 MG TABLET PO SCH (05:35)
[2018-03-30] MEDS ORDERED: IOHEXOL 300mg/ml 75ml INJECTION ONE (06:48)
[2018-03-30] MEDS ORDERED: SALINE FLUSH 10ml SYRINGE ONE (06:49)
[2018-03-30] MEDS: ENOXAPARIN 40 MG/0.4 ML INJECTION SQ SCH (09:07)
--- NOTE | 2018-03-30 09:08 | General Surgery Progress Note ---
Subjective Patient reports: tolerating a regular diet, voiding w/o difficulty, bowel movement (light brown stool in ostomy bag), afebrile Narrative: He denies pain when asked. - Vital Signs Last Vital Signs Temp 96.6 F L 03/30/18 07:57 Pulse 115 H 03/30/18 07:57 Resp 16 03/30/18 07:57 BP 121/70 03/30/18 07:57 Pulse Ox 97 03/30/18 07:57 - Laboratory Result Diagrams: 03/29/18 04:52 03/29/18 04:52 Laboratory Tests 03/09/18 03/14/18 03/19/18 04:16 04:00 04:29 Plt Count 788 H* 651 H 608 H 03/23/18 03/29/18 04:49 04:52 Plt Count 572 H 463 H - Radiology CT from this morning report pending. - Abnormal Exam General: other (cognitive deficite) - Normal Exam General: awake, alert Cardiovascular: regular rate (by still tachy 100's-110's) Respiratory: no labored breathing Abdominal: soft, incision(s) (wound vac black foam nicely compressed, ), other ( Left CLIFTON drains with clear fluid, Right CLIFTON drains with serous fluid) Assessment and Plan (1) Postoperative intra-abdominal abscess Current Visit: Yes Status: Chronic Qualifiers: Encounter type: initial encounter Qualified Code(s): T81.4XXA - Infection following a procedure, initial encounter; K65.1 - Peritoneal abscess (2) Colostomy in place Current Visit: Yes Status: Chronic (3) 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 03/02/2018 2nd exploratory with drainage of abscesses and placement of additional drains. Remains chronically slightly tachy. Platelet count gradually declining. Good stool in ostomy and eating regular diet. Ambulating and voiding. HGB stable. Reviewed DR. Ac note from yesterday regarding ABX. Dr. Hills will review report from CT today before pulling drains and deciding if midline incision can be closed. Hospital Course Summary Disclaimer: The visit summary below is not to be considered part of the above Progress Note. Hospital Course: 02/20/18 Admit, CCU. Bowel rest - NPO. Cont IVF - 1/2 NS with Na of 144. Consult Dr. Gomez for mgt. Sx management with Protonix, morphine, Zofran. Cont IVF for tachycardia; sepsis. Repeat lactate. Cont Zosyn for bowel coverage. Follow BC results. Iron w/u in progress. Type & screen ordered. D/W with Dr. Stevens and RN. 02/22/18 Gastrografin enema 02/21 with copious stool resulting. However, still with stool in rectal vault. Deferring further management to surgery team, await recs. Cont Zosyn given bandemia, tachycardia and concern for toxic megacolon. 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 Clinically deteriorating. Going for surgery for perforation/free air. Near total colectomy performed. Became hypotensive, tachycardic with rates into 180s. Aggressively fluid resuscitated. 02/24/18 UOP, tachycardia improved. Cont abx. Initiate TPN. Monitoring for return of bowel fxn. 02/25/18 Given Kphos Transfused another 1U PRBCs. Stopped LR. Surgery to trial clamping NGT. Intermittently febrile- rectal Tylenol. 02/26/18 Did have fever overnight. Has tolerated NGT clamping. No O2 requirements. No N/V /CP. Hasn't been able to perform IS very well. 02/27/18 Remains on TPN, tolerating limited oral liquids earlier today however resultant emesis has required resumption of NG suction. Good output per ostomy; 2400 mL output reported during prior 24-hour period. Hemoglobin drifting down, ongoing hypokalemia-post being reassessed this afternoon. Potassium increased and TPN but may require supplemental boluses due to potassium lost in stool and emesis. Persistent tachycardia-may require additional blood transfusion. Remains on Zosyn for peritonitis; chest x-ray with pleural effusion but no evidence of pneumonia. May require repeat CT abdomen/pelvis to exclude intra-abdominal abscess. 02/28/18 Remains on TPN, electrolytes stable. Good urine output per ostomy but continues to have high volume output per NG. Output significantly higher than input, weight down, ongoing tachycardia--> 1 L fluid bolus tonight. Anticipate ongoing need for fluids to match fluid losses. CT abdomen/pelvis discussed with radiology this evening and subsequently with Dr. Hills; will review further with radiology tomorrow to determine if drainage can be performed of the subphrenic abscess percutaneously or if surgical drainage/washout will be needed due to presence of multiple smaller fluid collections suggestive of early abscesses. Dr. Hills notified patient 's parents of findings. Hemoglobin continues to drift down very slowly, may be slightly hemoconcentrated at present. Type and screen in a.m. Anticipating transfusion in the next 1-2 days. 03/01/18 OP Day - Exploratory laparotomy, drainage of multiple intraabdominal abscesses, fecal disimpaction, intraoperative flexible proctoscopy. Subdiaphragmatic abscess and left upper quadrant-discussed with radiology and message subsequently relayed to Dr. Hills regarding potential risk of percutaneous drainage. Patient tenably scheduled to return to the operating room later today. Several very small extensive gas in the pelvis without clear room enhancement to suggest abscess, may simply be postoperative change. Remains on TPN, electrolytes stable. Good urine output per ostomy but continues to have high volume output per NG. Output significantly higher than input, weight down, ongoing tachycardia--> 1 L fluid bolus this a.m. and continue normal saline at 100 mL per hour. 2 units PRBCs matched preoperatively; one being given prior to surgery for hemoglobin 7.4. 03/02/18 s/p ex lap with placement of drains by Dr. Hills. Febrile before surgery. WBC up post-op. Wound cx growing GPC, GNR, GPR. Continue Zosyn Remains on TPN, reduce K+. Good urine output. Output per NG down. Continued tachycardia. Continue IVF and treat pain. Output significantly higher than input, weight down, ongoing tachycardia--> 1 L fluid bolus this a.m. and continue normal saline at 100 mL per hour. Anticipate ongoing need for fluids to match fluid losses. 1 unit PRBCs given 03/01. Total of 4 units transfused Ferrlecit dose given 02/25, plan to repeat dose 03/04. Discussed with nursing who provide supplemental history; mother updated. Prognosis guarded. 03/03/18 s/p ex lap 03/01 with placement of drains by Dr. Hills. Afebrile and WBC down. Wound cx growing GPC, GNR, GPR. Continue Zosyn and fluconazole Continue TPN, K+ improved. Good urine output. Output per NG and ostomy down since 03/01 ex lap. Continued tachycardia. Continue IVF and treat pain. ? whether anxious. Trial of Ativan Anticipate ongoing need for fluids to match fluid losses. 1 unit PRBCs given 03/01. Total of 4 units transfused Ferrlecit dose given 02/25, plan to repeat dose 03/04. Discussed with nursing who provide supplemental history; mother updated. Prognosis guarded. 03/04/18 s/p ex lap 03/01 with placement of drains by Dr. Hills. Fever and WBC up slightly. Wound cx growing e coli, sensitive to Zosyn. Fluconazole. Check CXR Continue TPN, K+ improved. Good urine output. Output per NG and ostomy down since 03/01 ex lap. Continued tachycardia. Hold LR as patient with trace edema. Start fentanyl patch for pain. He got 28 mg iv morphine yesterday. Starting fentanyl at 12mcg d /t possible interaction with Fluconazole. 1 unit PRBCs given 03/01. Total of 4 units transfused Ferrlicit dose given 02/25, plan to repeat dose 03/04. Discussed with nursing who provide supplemental history. Encourage activity. Prognosis guarded 03/05/18 s/p ex lap 03/01 with placement of drains by Dr. Hills. Wound VAC. Fever. WBC down slightly. Wound cx growing e coli, sensitive to Zosyn. Fluconazole. Check CXR. Continue TPN, decrease Mg. Good urine output. Output per NG up yesterday. Continued tachycardia. Holding LR as patient with trace edema. Appears more comfortable with fentanyl patch for pain. Platelets trending up. Check inflammatory markers. If continued fever, consider repeating CT Encourage activity. 03/06/18 Temp elevations to 100.5 - 101.7. Persistent tachycardia in 130s. BP 100's. WBC with gradual trend down to 17.9 - was 25.0 on 03/02. Platelets trending up to 971 (was 407 on 03/02). Electrolytes and renal status stable - on TPN. Will continue with Zosyn and Diflucan for antimicrobial coverage. Continue with wound vac and drains. CT scan of ab/pelvis to exclude occult abscess formation. Encourage continued activities. 03/07/18 WBC with gradual trend down to 14.3 - was 17.9 on yesterday. Platelets elevated at 961 (was 971 yesterday). Hemoglobin persistently low at 7.6; with continued tachycardia will give 1 unit of pRBC. Electrolytes and renal status stable - on TPN. Will continue with Zosyn for antimicrobial coverage; Dr Gomez added Vancomycin and increased Diflucan to 200mg daily. Continue with wound vac and drains. CT scan of ab/pelvis showed possible new abscess formation in the suprapubic region and omental area. Encourage continued activities. 03/08/18 WBC with increase back to 17.1. HGB increased to 8.2 post transfusion yesterday. Pharm recommended changing Zosyn to Meropenem - did agree. Continue vancomycin and Diflucan. Will continue with TPN for nutritional support - NS bolus of 500cc to help with tachycardia. Continue with pain control. 03/09/18 Temp elevations continue. WBC with decrease to 15.6, but increased bands noted. Renal status and electrolytes stable. Continues of Meropenem, vancomycin, and Diflucan for coverage. Dr Gomez plan repeating CT scan with contrast (though NG) tomorrow to check for bowel function and further abscesses. TPN for nutritional and volume support. Continue with MS for pain, add Aspercreme for muscle discomfort. 03/10/18 Temp elevations continue. WBC 16.4. Renal status and electrolytes stable. Little change in overall status. CT ab/pelvis shown abscess with drain in place, however abscess has increased in size. Sx working to have drains flushed. Continues on Meropenem, vancomycin, and Diflucan for coverage. TPN for nutritional and volume support. Will give 500cc NS bolus to help improve BP. 03/11/18 Temp elevations continue. WBC trended down to 14. Renal status and electrolytes stable. Little change in overall status. CT ab/pelvis shown abscess with drain in place, however abscess has increased in size. Sx working to have drains flushed. Continues on Meropenem, vancomycin, and Diflucan for coverage. TPN for nutritional and volume support. Repeat 500cc NS bolus today and add metoprolol for tachycardia as BP allows. Continue pain control. 03/12/18 Temp elevations continue. WBC trended down to 12.7. Renal status and electrolytes stable. Little change in overall status. CT ab/pelvis shown abscess with drain in place, however abscess has increased in size per CT 03/10/18. Sx working to have drains flushed. Continues on Meropenem, vancomycin, and Diflucan for coverage. TPN for nutritional and volume support. Added q12hr metoprolol in attempt to control heart rate, only marginally working and could be titrated if blood pressure allows. Continue pain control. 03/13/18 WBC with trend down, but still with tachycardia and intermittent temp elevations. Continues on Meropenem, vancomycin, and Diflucan for coverage. TPN for nutritional and volume support. Continue pain control. 03/14/18 WBC with elevation to 13.4. CT showing decrease size of abscess. Continues on Meropenem, vancomycin, and Diflucan for coverage. TPN for nutritional and volume support. Electrolytes and renal status stable. Continue pain control. Continue activities as able. 03/15/18 WBC with stable at 13.7. Platelets with decrease to 594. Less temp elevations seen. Continues on Meropenem, vancomycin, and Diflucan for coverage. TPN for nutritional and volume support. Electrolytes and renal status stable. Dr Gomez trying NG clamping and clear liquids. Continue pain control. Continue activities as able. 03/16/18 WBC with decrease to 11.7. Platelets with decrease to 546. Less temp elevations seen. Continues on Meropenem, vancomycin, and Diflucan for coverage. TPN for nutritional and volume support. Electrolytes and renal status stable. NG removed; clear liquids. 03/17/18 WBC with decrease to 10.1. Platelets with decrease to 529. Less temp elevations seen. Evaluated by Dr Ac today - vancomycin stopped and changed meropenem to Zosyn and continued Diflucan. TPN for nutritional and volume support. Electrolytes and renal status stable. Advanced to regular diet but oral drive low. HGB variable, but trend down. Will give 1 unit pRBC due to continued tachycardia in post op patent. Continue pain control. Continue activities as able - walking in halls with nursing help. 03/18/2018 White blood cell count today is up mildly to 12.1. Bands are up to 7 from one yesterday. He has been afebrile over 24 hours. Hemoglobin improved to 9.5 up from 7.1 yesterday. He received 1 unit of blood yesterday. He does have mildly elevated phosphorus and magnesium. Discussed with pharmacy. The rate of his TPN will be decreased. Will recheck phosphorus and magnesium tomorrow. Repeat INR tomorrow. Repeat CBC and renal panel tomorrow. Advance diet as tolerated. Will try oral supplements. Continue ambulation with assist. The patient continues to have persistent tachycardia this hospital course, but rate is slowly improving. No real change with transfusion of 1 unit of blood. Recheck C-reactive protein tomorrow Discussed case with CCU nursing. We'll check a vitamin B-12 tomorrow regarding borderline low B-12 level Greater than 40 minutes of critical care time spent seeing and evaluating the patient in determining care plan. 03/19/2018 White blood cell count continues to increase and is 16.5 today. Bands are 6 down from 7 yesterday. Hemoglobin has improved to 10.9. Patient remains afebrile. C-reactive protein has decreased from 181 down to 75. We'll continue on fluconazole and Zosyn for intra-abdominal abscesses. Advance diet as tolerated. Continue TPN for now, he will receive a customized formula with no phosphorus and decreased magnesium and calcium. Continue ambulation with assist Recheck CBC with manual differential, renal panel, magnesium tomorrow. 03/20/2018 White blood cell count continues to increase and is 18.8 today from 16.8 yesterday. Bands are 1 down from 6 yesterday. Temperature currently is 99.9. Dr. Gomez has ordered CT abdomen with contrast. The patient is currently on day 4 of Zosyn. He has been on fluconazole since at least February 23. Meropenem was discontinued March 18. Continue TPN for now, he is on a customized formula. Continue ambulation with assist Recheck CBC with manual differential, renal panel, magnesium tomorrow. Discussed with the patient's nurse and family. 03/21/18 CT abdomen with contrast obtained yesterday and shows a decrease in size of the intra-abdominal abscesses with no new abscess formation. White count is essentially stable from yesterday. The patient remains afebrile. He continues on fluconazole which was started February 23 and Zosyn which was started March 17. Prior to being on Zosyn, he was on meropenem but this was discontinued March 18 He continues to have tachycardia, but urine output remains stable. Fluid boluses in the past have not improved tachycardia. He does not appear to be in pain or anxious at this time. He is on fentanyl patch for pain and has when necessary medication for pain and anxiety. Will check TSH and reflex T4. 03/22/18 Stable, TSH normal. Mcdermott catheter discontinued. Pain well-controlled; taking by mouth well. 03/23/18 Oral intake improving, has been on a regular diet for approximately 5 days now and is eating meals well. Will discuss tapering TPN off with surgery. Renal function, hemoglobin, and blood pressure all stable. Persistent tachycardia, patient tolerates well-does not respond to additional fluids and patient does not appear to be in pain. Continue fluconazole and Zosyn-antibiotics under the management of Dr. Ac. 03/24/18 Discontinuing TPN today; stable to transfer out of ICU. Otherwise stable. 03/25/18 Doing well, TPN discontinued yesterday. Blood sugars stable following discontinuation of TPN. Accu-Cheks DC'd. 03/26/18 Stable, no change in therapy. 03/27/[address] Ac - Continue Zosyn and fluconazole. He will need at least 2 weeks of antibiotics, but he might require more. I would recommend repeat CT in a couple weeks to make sure the abscesses are resolved before stopping antibiotics. Will change the fluconazole to po. WBC normal. Hgb 8.9. CRP increased to 112.6 but peaked at 182 earlier in the month. Ongoing tachycardia - cortisol level normal at 16. Trial low-dose beta eugene ( metoprolol 6.25 mg twice a day) to suppress tachycardia. 03/28/[address] doing well. Heart rate with slight decrease since starting Coreg. Continue with Zosyn and fluconazole. Continue with wound vac and drains. Encourage ambulation to help strength. 03/29/19 Continue with Zosyn and fluconazole. Continue with wound vac and drains - anticipate repeat CT tomorrow. Will give IV Iron due to low iron levels - discussed with Pharm. Will have dose today, 03/31, and 04/03. 03/30/18 02/23/2018 1st colon resection with creation of end colostomy. 03/02/2018 2nd exploratory with drainage of abscesses and placement of additional drains. Remains chronically slightly tachy. Platelet count gradually declining. Good stool in ostomy and eating regular diet. Ambulating and voiding. HGB stable. Reviewed DR. Ac note from yesterday regarding ABX. Dr. Hills will review report from CT today before pulling drains and deciding if midline incision can be closed.
[2018-03-30] MEDS: FLUCONAZOLE 100 MG TABLET PO SCH (09:13)
--- NOTE | 2018-03-30 09:13 | Wound Care Progress Note ---
Wound Center Progress Note: Pt seen for wound/ostomy follow up. Pt resting in bed, watching TV, no complaints of pain. Pt conversive during vac dressing change. Nursing staff reported some trouble with the vac overnight, they changed the canister which seemed to help. At this time there is no drainage in the canister. Vac dressing intact, black foam collapsed without leaks, running at 125 mm Hg continuous pressure. Vac dressing removed from abd/chest surgical incision. Wound continuous to show improvement. Abd/chest surgical incision: Wound measurement is a composite measurement now, with 2 distinct openings. Composite measurement : 31.5 (L) x 1.7 (W) x 0.2 (D). Skin island at superior aspect of wound now measures 5 cm. No active drainage during vac change. Wound bed has red granulating tissue. Periwound: WDNL. Vac dressing reapplied, black foam collapsed without leaks, vac running at 125 mm Hg continuous pressure. Colostomy : pouch has small amount semi-liquid green yellow drainage. Pouching system intact without leaks. Continue to change vac dressing per order, continue to change pouching system PRN.
--- NOTE | 2018-03-30 09:53 | CT Scan Report ---
EXAM: CT abdomen pelvis w con DATE: 03/30/2018 7:00 AM ENCOUNTER: Subsequent INDICATION: F/U intra-abdominal abscesses COMPARISON: 03/20/2018, 03/14/2018, 03/10/2018, 03/06/2018, 02/28/2018 TECHNIQUE: CT of the abdomen and pelvis with IV contrast. The patient received 67 mL of Omnipaque 300 without complication. Coronal and sagittal reformatted images were performed. The current CT scan was performed using radiation dose-reduction techniques. FINDINGS: Lower Chest: Similar moderate left pleural effusion with associated near complete relaxation atelectasis of the left lower lobe. The heart is normal in size without pericardial effusion. Abdomen: No intraperitoneal free air. Unchanged abdominal and pelvic surgical drains with interval further decreased size of the left subdiaphragmatic fluid collection, now measuring 5.7 x 2.7 cm (previously 6.5 x 3.6 cm). No lymphadenopathy. Liver: The liver enhances homogeneously without focal masses. Gallbladder and biliary: The gallbladder appears normal. No biliary ductal dilatation. Spleen: The spleen appears normal. Pancreas: The pancreas demonstrates homogeneous attenuation. Adrenal glands: The adrenal glands are normal in size and attenuation. Kidneys/ureters: The kidneys appear normal. The ureters are normal in course and caliber. GI tract: The stomach, small bowel, and colon appear grossly unchanged with redemonstration of a right lower quadrant colostomy. The appendix is not seen with certainty. Vascular structures: The aorta is normal in course and caliber. The mesenteric arterial and venous structures appear patent. Pelvis: No pelvic free fluid. No pelvic lymphadenopathy. Bladder: Persistent circumferential thickening of the bladder wall. Genital system: The prostate and seminal vesicles appear grossly normal. Skeletal structures and soft tissues: The visualized skeletal structures are grossly normal. IMPRESSION: 1. Unchanged abdominal and pelvic surgical drains with further decreased size of the left subdiaphragmatic fluid collection and essential resolution of the additional previously noted collections within the left paracolic gutter and peripancreatic region. 2. Persistent moderate left pleural effusion with near complete relaxation atelectasis of the left lower lobe. .
--- NOTE | 2018-03-30 13:26 | Progress Note ---
- Date 03/30/18 Subjective: F/U: Toxic Megacolon, Perforation of splenic flexure, Multiple areas of intraabdominal abscess formation Sitting in bed eating lunch. Overall improving. Father reports had HARD workout with therapy this morning (needed a nap afterwards). Not having much ab pain. Breathing well. No temp elevations. Objective Vital signs: Temperature 97.3 F 03/30/18 11:27 Pulse Rate 111 H 03/30/18 11:27 Respiratory Rate 20 03/30/18 11:27 Blood Pressure 110/71 03/30/18 11:27 Pulse Oximetry 97 03/30/18 11:27 Rhythm: Sinus Tachycardia Height/Weight/BMI: Height 1.75 m Weight 60.4 kg Body Mass Index 22.5 - Constitutional Present: well developed, average body habitus, thin, cooperative. Absent: combative, agitated, somnolent - Routine HEENT Exam Head: Present: normocephalic, atraumatic Eye: Present: EOMI, PERRL ENT: Present: mucous membranes moist - Routine Respiratory Exam Present: CTA bilaterally. Absent: respiratory distress, wheezes, crackles - Routine Cardiovascular Exam Present: no murmur, tachycardia (Regular) - Routine Abdominal Exam Present: soft, normoactive bowel sounds, non distended - Routine Extremities Exam Present: no edema, pulses intact. Absent: cyanosis, clubbing - Routine Musculoskeletal Exam Musculoskeletal: Present: no clubbing or cyanosis - Routine Skin Exam Present: dry, warm - Routine Neurological Exam Present: alert, CN II-XII intact, vision grossly intact, hearing grossly intact - Routine Psychiatric Exam Present: normal affect, cooperative. Absent: anxious, agitated Results - Labs CBC & Chem 7: 03/29/18 04:52 03/29/18 04:52 Microbiology Results: Microbiology 03/01/18 18:56 Abdomen, Left Upper Gram Stain - Final 03/01/18 18:56 Abdomen, Left Upper Surgical Culture - Final Escherichia coli Anaerobic Gram-Negative Bhanu Anaerobic Gram-Positive Cocci 02/23/18 20:15 Peripheral/Iv Start Gram Stain - Final Not performed 02/23/18 20:15 Peripheral/Iv Start Blood Culture - Final No Growth After 5 Days 02/23/18 20:05 Peripheral/Iv Start Gram Stain - Final Not performed 02/23/18 20:05 Peripheral/Iv Start Blood Culture - Final No Growth After 5 Days 02/20/18 20:07 Peripheral/Iv Start Blood Culture - Final No Growth After 5 Days - Imaging and Cardiology CT scan - abdomen Additional comments: Date of Exam: 03/30/18 Type of Exam: CT abdomen pelvis w con IMPRESSION: 1. Unchanged abdominal and pelvic surgical drains with further decreased size of the left subdiaphragmatic fluid collection and essential resolution of the additional previously noted collections within the left paracolic gutter and peripancreatic region. 2. Persistent moderate left pleural effusion with near complete relaxation atelectasis of the left lower lobe. 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 On meropenem 03/08-03/17, Vancomycin 03/07-03/17; Zosyn initiated on March 18. Tachycardia -persistent during the hospital course Severe constipation-resolved Severe sepsis -resolved Fever Severe iron deficiency anemia-received IV iron 02/25/2018 and 03/04/2018. He has had a total of 6 units of blood, he received his last unit 03/17/2018 Autism Dental problems Hypophosphatemia-resolved Hyperphosphatemia-on TPN Hypermagnesemia-on TPN-resolved Hypokalemia (Not POA) -resolved LLL atelectasis Acute kidney injury with oliguria-postop -resolved Hyperkalemia (Not POA) -resolved Thrombocytosis (Not POA) Mild elevation of INR of 1.39 on 03/19/2018 Plan Continues to work well this therapy. Oral drive stable. CT showing unchanged abdominal and pelvic surgical drains with further decreased size of the left subdiaphragmatic fluid collection and essential resolution of the additional previously noted collections within the left paracolic gutter and peripancreatic region. Drain and wound vac care as per surgery. Continue with Zosyn and fluconazole for antimicrobial coverage. Increase metoprolol to 12.5mg BIDWM to help tachycardia. BP stable. Recheck CBC, CRP, and BMP in am secondary to resolving peritonitis and medication use. Case discussed with patient's parents. Time spent with patient care 25 minutes. DVT Prophylaxis: Lovenox Resuscitation Status: Full Code - Time spent with patient Time with patient PN: 25 minutes - Physician Narrative Physician: Daniel Stevens MD Narrative: Date: 03/30/18 Time: 1322 Hospital Course Summary Disclaimer: The visit summary below is not to be considered part of the above Progress Note. Hospital Course: 02/20/18 Admit, CCU. Bowel rest - NPO. Cont IVF - 1/2 NS with Na of 144. Consult Dr. Gomez for mgt. Sx management with Protonix, morphine, Zofran. Cont IVF for tachycardia; sepsis. Repeat lactate. Cont Zosyn for bowel coverage. Follow BC results. Iron w/u in progress. Type & screen ordered. D/W with Dr. Stevens and RN. 02/22/18 Gastrografin enema 02/21 with copious stool resulting. However, still with stool in rectal vault. Deferring further management to surgery team, await recs. Cont Zosyn given bandemia, tachycardia and concern for toxic megacolon. 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 Clinically deteriorating. Going for surgery for perforation/free air. Near total colectomy performed. Became hypotensive, tachycardic with rates into 180s. Aggressively fluid resuscitated. 02/24/18 UOP, tachycardia improved. Cont abx. Initiate TPN. Monitoring for return of bowel fxn. 02/25/18 Given Kphos Transfused another 1U PRBCs. Stopped LR. Surgery to trial clamping NGT. Intermittently febrile- rectal Tylenol. 02/26/18 Did have fever overnight. Has tolerated NGT clamping. No O2 requirements. No N/V /CP. Hasn't been able to perform IS very well. 02/27/18 Remains on TPN, tolerating limited oral liquids earlier today however resultant emesis has required resumption of NG suction. Good output per ostomy; 2400 mL output reported during prior 24-hour period. Hemoglobin drifting down, ongoing hypokalemia-post being reassessed this afternoon. Potassium increased and TPN but may require supplemental boluses due to potassium lost in stool and emesis. Persistent tachycardia-may require additional blood transfusion. Remains on Zosyn for peritonitis; chest x-ray with pleural effusion but no evidence of pneumonia. May require repeat CT abdomen/pelvis to exclude intra-abdominal abscess. 02/28/18 Remains on TPN, electrolytes stable. Good urine output per ostomy but continues to have high volume output per NG. Output significantly higher than input, weight down, ongoing tachycardia--> 1 L fluid bolus tonight. Anticipate ongoing need for fluids to match fluid losses. CT abdomen/pelvis discussed with radiology this evening and subsequently with Dr. Hills; will review further with radiology tomorrow to determine if drainage can be performed of the subphrenic abscess percutaneously or if surgical drainage/washout will be needed due to presence of multiple smaller fluid collections suggestive of early abscesses. Dr. Hills notified patient 's parents of findings. Hemoglobin continues to drift down very slowly, may be slightly hemoconcentrated at present. Type and screen in a.m. Anticipating transfusion in the next 1-2 days. 03/01/18 OP Day - Exploratory laparotomy, drainage of multiple intraabdominal abscesses, fecal disimpaction, intraoperative flexible proctoscopy. Subdiaphragmatic abscess and left upper quadrant-discussed with radiology and message subsequently relayed to Dr. Hills regarding potential risk of percutaneous drainage. Patient tenably scheduled to return to the operating room later today. Several very small extensive gas in the pelvis without clear room enhancement to suggest abscess, may simply be postoperative change. Remains on TPN, electrolytes stable. Good urine output per ostomy but continues to have high volume output per NG. Output significantly higher than input, weight down, ongoing tachycardia--> 1 L fluid bolus this a.m. and continue normal saline at 100 mL per hour. 2 units PRBCs matched preoperatively; one being given prior to surgery for hemoglobin 7.4. 03/02/18 s/p ex lap with placement of drains by Dr. Hills. Febrile before surgery. WBC up post-op. Wound cx growing GPC, GNR, GPR. Continue Zosyn Remains on TPN, reduce K+. Good urine output. Output per NG down. Continued tachycardia. Continue IVF and treat pain. Output significantly higher than input, weight down, ongoing tachycardia--> 1 L fluid bolus this a.m. and continue normal saline at 100 mL per hour. Anticipate ongoing need for fluids to match fluid losses. 1 unit PRBCs given 03/01. Total of 4 units transfused Ferrlecit dose given 02/25, plan to repeat dose 03/04. Discussed with nursing who provide supplemental history; mother updated. Prognosis guarded. 03/03/18 s/p ex lap 03/01 with placement of drains by Dr. Hills. Afebrile and WBC down. Wound cx growing GPC, GNR, GPR. Continue Zosyn and fluconazole Continue TPN, K+ improved. Good urine output. Output per NG and ostomy down since 03/01 ex lap. Continued tachycardia. Continue IVF and treat pain. ? whether anxious. Trial of Ativan Anticipate ongoing need for fluids to match fluid losses. 1 unit PRBCs given 03/01. Total of 4 units transfused Ferrlecit dose given 02/25, plan to repeat dose 03/04. Discussed with nursing who provide supplemental history; mother updated. Prognosis guarded. 03/04/18 s/p ex lap 03/01 with placement of drains by Dr. Hills. Fever and WBC up slightly. Wound cx growing e coli, sensitive to Zosyn. Fluconazole. Check CXR Continue TPN, K+ improved. Good urine output. Output per NG and ostomy down since 03/01 ex lap. Continued tachycardia. Hold LR as patient with trace edema. Start fentanyl patch for pain. He got 28 mg iv morphine yesterday. Starting fentanyl at 12mcg d /t possible interaction with Fluconazole. 1 unit PRBCs given 03/01. Total of 4 units transfused Ferrlicit dose given 02/25, plan to repeat dose 03/04. Discussed with nursing who provide supplemental history. Encourage activity. Prognosis guarded 03/05/18 s/p ex lap 03/01 with placement of drains by Dr. Hills. Wound VAC. Fever. WBC down slightly. Wound cx growing e coli, sensitive to Zosyn. Fluconazole. Check CXR. Continue TPN, decrease Mg. Good urine output. Output per NG up yesterday. Continued tachycardia. Holding LR as patient with trace edema. Appears more comfortable with fentanyl patch for pain. Platelets trending up. Check inflammatory markers. If continued fever, consider repeating CT Encourage activity. 03/06/18 Temp elevations to 100.5 - 101.7. Persistent tachycardia in 130s. BP 100's. WBC with gradual trend down to 17.9 - was 25.0 on 03/02. Platelets trending up to 971 (was 407 on 03/02). Electrolytes and renal status stable - on TPN. Will continue with Zosyn and Diflucan for antimicrobial coverage. Continue with wound vac and drains. CT scan of ab/pelvis to exclude occult abscess formation. Encourage continued activities. 03/07/18 WBC with gradual trend down to 14.3 - was 17.9 on yesterday. Platelets elevated at 961 (was 971 yesterday). Hemoglobin persistently low at 7.6; with continued tachycardia will give 1 unit of pRBC. Electrolytes and renal status stable - on TPN. Will continue with Zosyn for antimicrobial coverage; Dr Gomez added Vancomycin and increased Diflucan to 200mg daily. Continue with wound vac and drains. CT scan of ab/pelvis showed possible new abscess formation in the suprapubic region and omental area. Encourage continued activities. 03/08/18 WBC with increase back to 17.1. HGB increased to 8.2 post transfusion yesterday. Pharm recommended changing Zosyn to Meropenem - did agree. Continue vancomycin and Diflucan. Will continue with TPN for nutritional support - NS bolus of 500cc to help with tachycardia. Continue with pain control. 03/09/18 Temp elevations continue. WBC with decrease to 15.6, but increased bands noted. Renal status and electrolytes stable. Continues of Meropenem, vancomycin, and Diflucan for coverage. Dr Gomez plan repeating CT scan with contrast (though NG) tomorrow to check for bowel function and further abscesses. TPN for nutritional and volume support. Continue with MS for pain, add Aspercreme for muscle discomfort. 03/10/18 Temp elevations continue. WBC 16.4. Renal status and electrolytes stable. Little change in overall status. CT ab/pelvis shown abscess with drain in place, however abscess has increased in size. Sx working to have drains flushed. Continues on Meropenem, vancomycin, and Diflucan for coverage. TPN for nutritional and volume support. Will give 500cc NS bolus to help improve BP. 03/11/18 Temp elevations continue. WBC trended down to 14. Renal status and electrolytes stable. Little change in overall status. CT ab/pelvis shown abscess with drain in place, however abscess has increased in size. Sx working to have drains flushed. Continues on Meropenem, vancomycin, and Diflucan for coverage. TPN for nutritional and volume support. Repeat 500cc NS bolus today and add metoprolol for tachycardia as BP allows. Continue pain control. 03/12/18 Temp elevations continue. WBC trended down to 12.7. Renal status and electrolytes stable. Little change in overall status. CT ab/pelvis shown abscess with drain in place, however abscess has increased in size per CT 03/10/18. Sx working to have drains flushed. Continues on Meropenem, vancomycin, and Diflucan for coverage. TPN for nutritional and volume support. Added q12hr metoprolol in attempt to control heart rate, only marginally working and could be titrated if blood pressure allows. Continue pain control. 03/13/18 WBC with trend down, but still with tachycardia and intermittent temp elevations. Continues on Meropenem, vancomycin, and Diflucan for coverage. TPN for nutritional and volume support. Continue pain control. 03/14/18 WBC with elevation to 13.4. CT showing decrease size of abscess. Continues on Meropenem, vancomycin, and Diflucan for coverage. TPN for nutritional and volume support. Electrolytes and renal status stable. Continue pain control. Continue activities as able. 03/15/18 WBC with stable at 13.7. Platelets with decrease to 594. Less temp elevations seen. Continues on Meropenem, vancomycin, and Diflucan for coverage. TPN for nutritional and volume support. Electrolytes and renal status stable. Dr Gomez trying NG clamping and clear liquids. Continue pain control. Continue activities as able. 03/16/18 WBC with decrease to 11.7. Platelets with decrease to 546. Less temp elevations seen. Continues on Meropenem, vancomycin, and Diflucan for coverage. TPN for nutritional and volume support. Electrolytes and renal status stable. NG removed; clear liquids. 03/17/18 WBC with decrease to 10.1. Platelets with decrease to 529. Less temp elevations seen. Evaluated by Dr Ac today - vancomycin stopped and changed meropenem to Zosyn and continued Diflucan. TPN for nutritional and volume support. Electrolytes and renal status stable. Advanced to regular diet but oral drive low. HGB variable, but trend down. Will give 1 unit pRBC due to continued tachycardia in post op patent. Continue pain control. Continue activities as able - walking in halls with nursing help. 03/18/2018 White blood cell count today is up mildly to 12.1. Bands are up to 7 from one yesterday. He has been afebrile over 24 hours. Hemoglobin improved to 9.5 up from 7.1 yesterday. He received 1 unit of blood yesterday. He does have mildly elevated phosphorus and magnesium. Discussed with pharmacy. The rate of his TPN will be decreased. Will recheck phosphorus and magnesium tomorrow. Repeat INR tomorrow. Repeat CBC and renal panel tomorrow. Advance diet as tolerated. Will try oral supplements. Continue ambulation with assist. The patient continues to have persistent tachycardia this hospital course, but rate is slowly improving. No real change with transfusion of 1 unit of blood. Recheck C-reactive protein tomorrow Discussed case with CCU nursing. We'll check a vitamin B-12 tomorrow regarding borderline low B-12 level Greater than 40 minutes of critical care time spent seeing and evaluating the patient in determining care plan. 03/19/2018 White blood cell count continues to increase and is 16.5 today. Bands are 6 down from 7 yesterday. Hemoglobin has improved to 10.9. Patient remains afebrile. C-reactive protein has decreased from 181 down to 75. We'll continue on fluconazole and Zosyn for intra-abdominal abscesses. Advance diet as tolerated. Continue TPN for now, he will receive a customized formula with no phosphorus and decreased magnesium and calcium. Continue ambulation with assist Recheck CBC with manual differential, renal panel, magnesium tomorrow. 03/20/2018 White blood cell count continues to increase and is 18.8 today from 16.8 yesterday. Bands are 1 down from 6 yesterday. Temperature currently is 99.9. Dr. Gomez has ordered CT abdomen with contrast. The patient is currently on day 4 of Zosyn. He has been on fluconazole since at least February 23. Meropenem was discontinued March 18. Continue TPN for now, he is on a customized formula. Continue ambulation with assist Recheck CBC with manual differential, renal panel, magnesium tomorrow. Discussed with the patient's nurse and family. 03/21/18 CT abdomen with contrast obtained yesterday and shows a decrease in size of the intra-abdominal abscesses with no new abscess formation. White count is essentially stable from yesterday. The patient remains afebrile. He continues on fluconazole which was started February 23 and Zosyn which was started March 17. Prior to being on Zosyn, he was on meropenem but this was discontinued March 18 He continues to have tachycardia, but urine output remains stable. Fluid boluses in the past have not improved tachycardia. He does not appear to be in pain or anxious at this time. He is on fentanyl patch for pain and has when necessary medication for pain and anxiety. Will check TSH and reflex T4. 03/22/18 Stable, TSH normal. Mcdermott catheter discontinued. Pain well-controlled; taking by mouth well. 03/23/18 Oral intake improving, has been on a regular diet for approximately 5 days now and is eating meals well. Will discuss tapering TPN off with surgery. Renal function, hemoglobin, and blood pressure all stable. Persistent tachycardia, patient tolerates well-does not respond to additional fluids and patient does not appear to be in pain. Continue fluconazole and Zosyn-antibiotics under the management of Dr. Ac. 03/24/18 Discontinuing TPN today; stable to transfer out of ICU. Otherwise stable. 03/25/18 Doing well, TPN discontinued yesterday. Blood sugars stable following discontinuation of TPN. Accu-Cheks DC'd. 03/26/18 Stable, no change in therapy. 03/27/[address] Ac - Continue Zosyn and fluconazole. He will need at least 2 weeks of antibiotics, but he might require more. I would recommend repeat CT in a couple weeks to make sure the abscesses are resolved before stopping antibiotics. Will change the fluconazole to po. WBC normal. Hgb 8.9. CRP increased to 112.6 but peaked at 182 earlier in the month. Ongoing tachycardia - cortisol level normal at 16. Trial low-dose beta eugene ( metoprolol 6.25 mg twice a day) to suppress tachycardia. 03/28/[address] doing well. Heart rate with slight decrease since starting metoprolol. Continue with Zosyn and fluconazole. Continue with wound vac and drains. Encourage ambulation to help strength. 03/29/19 Continue with Zosyn and fluconazole. Continue with wound vac and drains - anticipate repeat CT tomorrow. Will give IV Iron due to low iron levels - discussed with Pharm. Will have dose today, 03/31, and 04/03. 03/30/18 Continues to work well this therapy. Oral drive stable. CT showing unchanged abdominal and pelvic surgical drains with further decreased size of the left subdiaphragmatic fluid collection and essential resolution of the additional previously noted collections within the left paracolic gutter and peripancreatic region. Drain and wound vac care as per surgery. Dr. Hills will review report from CT today before pulling drains and deciding if midline incision can be closed. Continue with Zosyn and fluconazole for antimicrobial coverage. Increase metoprolol to 12.5mg BIDWM to help tachycardia. BP stable.
[2018-03-30] MEDS: NS FLUSH BAG 500ml IV PRN (15:27)
--- NOTE | 2018-03-30 16:23 | Progress Note ---
DATE OF VISIT 03/29/2018 REASON FOR VISIT Covering surgical care for Dr. Gomez. SUBJECTIVE Cosmo is doing fair today. He is eating slightly better. He still reports abdominal pain when questioned. OBJECTIVE VITAL SIGNS: Afebrile with stable vitals on room air. GENERAL: The patient is awake and alert. He is in no acute distress. ABDOMEN: Soft, appropriately tender. His wound VAC remains in place with a good seal. His drains still have clear output and ostomy has light brown output. IMPRESSION Status post exploratory laparotomies x2 with near total colectomy and end colostomy with Mendoza's pouch formation due to colonic rupture and feculent peritonitis. He appears to be making slow progress. PLAN 1. CT scan of the abdomen and pelvis tomorrow to evaluate for ongoing abscess. 2. Continue antimicrobial coverage until CT results are available. SYLVAIN
[2018-03-31] MEDS: PIPERACILLIN/TAZOBACTAM 3.375 GM in D5W 100 ML IV SCH ×3 (02:49→15:12)
[2018-03-31] MEDS: SALINE FLUSH 10ml SYRINGE IVF PRN (02:50)
[2018-03-31] MEDS: PANTOPRAZOLE 40 MG TABLET PO SCH (06:05)
--- NOTE | 2018-03-31 07:49 | ID Progress Note ---
Subjective Date: 03/31/18 Subjective: Arslan appears comfortable. He still says he has abdominal pain when asked. On questioning, states it's getting better. Denies nausea. Exam Vital Signs: Temperature 97.1 F 03/31/18 07:36 Pulse Rate 101 H 03/31/18 07:36 Respiratory Rate 16 03/31/18 07:36 Blood Pressure 119/78 03/31/18 07:36 Pulse Oximetry 96 03/31/18 07:36 Height/Weight/BMI: Height 1.75 m Weight 58.6 kg Body Mass Index 19.6 - Constitutional Present: no acute distress, well nourished, well developed, thin - Routine HEENT Exam Head: Present: normocephalic, atraumatic Eye: Present: EOMI, PERRL ENT: Present: mucous membranes moist, oropharynx clear - Routine Neck Exam Present: supple - Routine Respiratory Exam Present: CTA bilaterally - Routine Cardiovascular Exam Present: RRR - Routine Abdominal Exam Present: soft, normoactive bowel sounds, non distended, non tender, ostomy. Absent: guarding Comments: 2 drains on R side of abdomen, 3 on left side, not much in bulbs - Routine Extremities Exam Absent: cyanosis, clubbing, edema - Routine Skin Exam Absent: rash Comments: RUE PICC site ok - Routine Neurological Exam Present: alert, CN II-XII intact. Absent: motor deficit - Routine Psychiatric Exam Comments: flat affect, only answers questions with one-word answers Results - Labs CBC & Chem 7: 03/31/18 04:06 03/31/18 04:06 Microbiology Results: Microbiology 03/01/18 18:56 Abdomen, Left Upper Gram Stain - Final 03/01/18 18:56 Abdomen, Left Upper Surgical Culture - Final Escherichia coli Anaerobic Gram-Negative Bhanu Anaerobic Gram-Positive Cocci 02/23/18 20:15 Peripheral/Iv Start Gram Stain - Final Not performed 02/23/18 20:15 Peripheral/Iv Start Blood Culture - Final No Growth After 5 Days 02/23/18 20:05 Peripheral/Iv Start Gram Stain - Final Not performed 02/23/18 20:05 Peripheral/Iv Start Blood Culture - Final No Growth After 5 Days 02/20/18 20:07 Peripheral/Iv Start Blood Culture - Final No Growth After 5 Days - Impressions CT A/P 03/30: IMPRESSION: 1. Unchanged abdominal and pelvic surgical drains with further decreased size of the left subdiaphragmatic fluid collection and essential resolution of the additional previously noted collections within the left paracolic gutter and peripancreatic region. 2. Persistent moderate left pleural effusion with near complete relaxation atelectasis of the left lower lobe. Impression: Sepsis, secondary to GI source Fever, leukocytosis, improving Sinus tachycardia Perforation of splenic flexure due to ischemia, s/p near total colectomy with ostomy placement 02/23/18, fecal peritonitis noted S/p operative drainage of intra-abdominal abscesses and fecal disimpaction , cultures with E. coli, anaerobic GNR, anaerobic GPC. CT 03/30 showed "unchanged abdominal and pelvic surgical drains with further decreased size of the left subdiaphragmatic fluid collection (now 5.7 x 2.7cm) and essential resolution of the additional previously noted collections within the left paracolic gutter and peripancreatic region. Severe iron deficiency anemia autism H/o toxic megacolon Recommendation: Continue antibiotics until the intra-abdominal fluid collection is resolved. He could potentially be changed to oral cipro 500mg po BID, flagyl 500mg po BID and continue on the oral fluconazole. Would repeat CT in about 2 weeks.
--- NOTE | 2018-03-31 08:29 | Progress Note ---
DATE OF VISIT 03/30/2018 REASON FOR VISIT Covering surgical care for Dr. Gomez. SUBJECTIVE Arslan had a CT scan today. He still is taking oral intake well. He reports abdominal pain on questioning. OBJECTIVE VITAL SIGNS: Afebrile with stable vitals. His pulse still remains in the 110s. GENERAL: The patient is awake and alert, in no acute distress. ABDOMEN: Soft, minimally tender. His wound VAC is in good position with good compression of the foam. His ostomy has significant output. Drains only show clear output. IMPRESSION 1. Status post exploratory laparotomies x2 with end colostomy formation and Mendoza's pouch formation due to colonic rupture and feculent peritonitis. 2. Left subdiaphragmatic abscess - improved from prior CT scan but ongoing. His drain in the area does not show evidence of connection to the abscess cavity based on outputs. PLAN 1. Await discussion with Infectious Disease tomorrow prior to removal of drains. 2. Continue antimicrobials. 3. I will most likely remove four of the five drains tomorrow but leave the subdiaphragmatic drain until Dr. Gomez returns unless Dr. Ac does not think that this drain is necessary. [facility]
[2018-03-31] MEDS: FLUCONAZOLE 100 MG TABLET PO SCH (09:20)
[2018-03-31] MEDS: ENOXAPARIN 40 MG/0.4 ML INJECTION SQ SCH (09:22)
--- NOTE | 2018-03-31 09:58 | General Surgery Progress Note ---
Subjective Patient reports: tolerating a regular diet, voiding w/o difficulty, bowel movement (light brown soft stool in colostomy bag), afebrile Narrative: When questioned about pain he states yes, when touching skin of abdomen he said yes, when touching his arm he said yet, when touching his shoulder he said yes. I certainly think he is having some abdominal discomfort, the amount is difficult to determine. - Vital Signs Last Vital Signs Temp 97.1 F 03/31/18 07:36 Pulse 100 03/31/18 08:00 Resp 16 03/31/18 07:36 BP 119/78 03/31/18 07:36 Pulse Ox 96 03/31/18 07:36 - Laboratory Result Diagrams: 03/31/18 04:06 03/31/18 04:06 - Abnormal Exam Cardiovascular: other (tachy) - Normal Exam General: awake (eating breakfast), alert Cardiovascular: regular rate Respiratory: no labored breathing Abdominal: soft, appropriately tender (but hard to determine details of discomfort), incision(s) (midline with foam nicely compressed), other (Left JPs with clear NS type fluid in them, minimal amount. 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 WBC and HGB stable see labs. Dr. Ac and Dr. Hills will discuss possible drain removal based on yesterday's CT. Dr. Ac has made PO ABX recommendations that would help facilitate discharge. Will make Arslan NPO after midnight Tuesday morning for possible return to the OR for possible change out of the drain in the area of the abscess, possible closure of midline incision. Time is reserved on the OR schedule. Dr. Gomez not available till Tuesday to make the final decision regarding OR options. [facility] has been able to obtain paid days by insurance through Tuesday, this may change if Arslan goes to the OR. [facility] has tentatively agreed to take Arslan upon discharge. Hospital Course Summary Disclaimer: The visit summary below is not to be considered part of the above Progress Note. Hospital Course: 02/20/18 Admit, CCU. Bowel rest - NPO. Cont IVF - 1/ NS with Na of 144. Consult Dr. Gomez for mgt. Sx management with Protonix, morphine, Zofran. Cont IVF for tachycardia; sepsis. Repeat lactate. Cont Zosyn for bowel coverage. Follow BC results. Iron w/u in progress. Type & screen ordered. D/W with Dr. Stevens and RN. 02/22/18 Gastrografin enema 02/21 with copious stool resulting. However, still with stool in rectal vault. Deferring further management to surgery team, await recs. Cont Zosyn given bandemia, tachycardia and concern for toxic megacolon. 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 Clinically deteriorating. Going for surgery for perforation/free air. Near total colectomy performed. Became hypotensive, tachycardic with rates into 180s. Aggressively fluid resuscitated. 02/24/18 UOP, tachycardia improved. Cont abx. Initiate TPN. Monitoring for return of bowel fxn. 02/25/18 Given Kphos Transfused another 1U PRBCs. Stopped LR. Surgery to trial clamping NGT. Intermittently febrile- rectal Tylenol. 02/26/18 Did have fever overnight. Has tolerated NGT clamping. No O2 requirements. No N/V /CP. Hasn't been able to perform IS very well. 02/27/18 Remains on TPN, tolerating limited oral liquids earlier today however resultant emesis has required resumption of NG suction. Good output per ostomy; 2400 mL output reported during prior 24-hour period. Hemoglobin drifting down, ongoing hypokalemia-post being reassessed this afternoon. Potassium increased and TPN but may require supplemental boluses due to potassium lost in stool and emesis. Persistent tachycardia-may require additional blood transfusion. Remains on Zosyn for peritonitis; chest x-ray with pleural effusion but no evidence of pneumonia. May require repeat CT abdomen/pelvis to exclude intra-abdominal abscess. 02/28/18 Remains on TPN, electrolytes stable. Good urine output per ostomy but continues to have high volume output per NG. Output significantly higher than input, weight down, ongoing tachycardia--> 1 L fluid bolus tonight. Anticipate ongoing need for fluids to match fluid losses. CT abdomen/pelvis discussed with radiology this evening and subsequently with Dr. Hills; will review further with radiology tomorrow to determine if drainage can be performed of the subphrenic abscess percutaneously or if surgical drainage/washout will be needed due to presence of multiple smaller fluid collections suggestive of early abscesses. Dr. Hills notified patient 's parents of findings. Hemoglobin continues to drift down very slowly, may be slightly hemoconcentrated at present. Type and screen in a.m. Anticipating transfusion in the next 1-2 days. 03/01/18 OP Day - Exploratory laparotomy, drainage of multiple intraabdominal abscesses, fecal disimpaction, intraoperative flexible proctoscopy. Subdiaphragmatic abscess and left upper quadrant-discussed with radiology and message subsequently relayed to Dr. Hills regarding potential risk of percutaneous drainage. Patient tenably scheduled to return to the operating room later today. Several very small extensive gas in the pelvis without clear room enhancement to suggest abscess, may simply be postoperative change. Remains on TPN, electrolytes stable. Good urine output per ostomy but continues to have high volume output per NG. Output significantly higher than input, weight down, ongoing tachycardia--> 1 L fluid bolus this a.m. and continue normal saline at 100 mL per hour. 2 units PRBCs matched preoperatively; one being given prior to surgery for hemoglobin 7.4. 03/02/18 s/p ex lap with placement of drains by Dr. Hills. Febrile before surgery. WBC up post-op. Wound cx growing GPC, GNR, GPR. Continue Zosyn Remains on TPN, reduce K+. Good urine output. Output per NG down. Continued tachycardia. Continue IVF and treat pain. Output significantly higher than input, weight down, ongoing tachycardia--> 1 L fluid bolus this a.m. and continue normal saline at 100 mL per hour. Anticipate ongoing need for fluids to match fluid losses. 1 unit PRBCs given 03/01. Total of 4 units transfused Ferrlecit dose given 02/25, plan to repeat dose 03/04. Discussed with nursing who provide supplemental history; mother updated. Prognosis guarded. 03/03/18 s/p ex lap 03/01 with placement of drains by Dr. Hills. Afebrile and WBC down. Wound cx growing GPC, GNR, GPR. Continue Zosyn and fluconazole Continue TPN, K+ improved. Good urine output. Output per NG and ostomy down since 03/01 ex lap. Continued tachycardia. Continue IVF and treat pain. ? whether anxious. Trial of Ativan Anticipate ongoing need for fluids to match fluid losses. 1 unit PRBCs given 03/01. Total of 4 units transfused Ferrlecit dose given 02/25, plan to repeat dose 03/04. Discussed with nursing who provide supplemental history; mother updated. Prognosis guarded. 03/04/18 s/p ex lap 03/01 with placement of drains by Dr. Hills. Fever and WBC up slightly. Wound cx growing e coli, sensitive to Zosyn. Fluconazole. Check CXR Continue TPN, K+ improved. Good urine output. Output per NG and ostomy down since 03/01 ex lap. Continued tachycardia. Hold LR as patient with trace edema. Start fentanyl patch for pain. He got 28 mg iv morphine yesterday. Starting fentanyl at 12mcg d /t possible interaction with Fluconazole. 1 unit PRBCs given 03/01. Total of 4 units transfused Ferrlicit dose given 02/25, plan to repeat dose 03/04. Discussed with nursing who provide supplemental history. Encourage activity. Prognosis guarded 03/05/18 s/p ex lap 03/01 with placement of drains by Dr. Hills. Wound VAC. Fever. WBC down slightly. Wound cx growing e coli, sensitive to Zosyn. Fluconazole. Check CXR. Continue TPN, decrease Mg. Good urine output. Output per NG up yesterday. Continued tachycardia. Holding LR as patient with trace edema. Appears more comfortable with fentanyl patch for pain. Platelets trending up. Check inflammatory markers. If continued fever, consider repeating CT Encourage activity. 03/06/18 Temp elevations to 100.5 - 101.7. Persistent tachycardia in 130s. BP 100's. WBC with gradual trend down to 17.9 - was 25.0 on 03/02. Platelets trending up to 971 (was 407 on 03/02). Electrolytes and renal status stable - on TPN. Will continue with Zosyn and Diflucan for antimicrobial coverage. Continue with wound vac and drains. CT scan of ab/pelvis to exclude occult abscess formation. Encourage continued activities. 03/07/18 WBC with gradual trend down to 14.3 - was 17.9 on yesterday. Platelets elevated at 961 (was 971 yesterday). Hemoglobin persistently low at 7.6; with continued tachycardia will give 1 unit of pRBC. Electrolytes and renal status stable - on TPN. Will continue with Zosyn for antimicrobial coverage; Dr Gomez added Vancomycin and increased Diflucan to 200mg daily. Continue with wound vac and drains. CT scan of ab/pelvis showed possible new abscess formation in the suprapubic region and omental area. Encourage continued activities. 03/08/18 WBC with increase back to 17.1. HGB increased to 8.2 post transfusion yesterday. Pharm recommended changing Zosyn to Meropenem - did agree. Continue vancomycin and Diflucan. Will continue with TPN for nutritional support - NS bolus of 500cc to help with tachycardia. Continue with pain control. 03/09/18 Temp elevations continue. WBC with decrease to 15.6, but increased bands noted. Renal status and electrolytes stable. Continues of Meropenem, vancomycin, and Diflucan for coverage. Dr Gomez plan repeating CT scan with contrast (though NG) tomorrow to check for bowel function and further abscesses. TPN for nutritional and volume support. Continue with MS for pain, add Aspercreme for muscle discomfort. 03/10/18 Temp elevations continue. WBC 16.4. Renal status and electrolytes stable. Little change in overall status. CT ab/pelvis shown abscess with drain in place, however abscess has increased in size. Sx working to have drains flushed. Continues on Meropenem, vancomycin, and Diflucan for coverage. TPN for nutritional and volume support. Will give 500cc NS bolus to help improve BP. 03/11/18 Temp elevations continue. WBC trended down to 14. Renal status and electrolytes stable. Little change in overall status. CT ab/pelvis shown abscess with drain in place, however abscess has increased in size. Sx working to have drains flushed. Continues on Meropenem, vancomycin, and Diflucan for coverage. TPN for nutritional and volume support. Repeat 500cc NS bolus today and add metoprolol for tachycardia as BP allows. Continue pain control. 03/12/18 Temp elevations continue. WBC trended down to 12.7. Renal status and electrolytes stable. Little change in overall status. CT ab/pelvis shown abscess with drain in place, however abscess has increased in size per CT 03/10/18. Sx working to have drains flushed. Continues on Meropenem, vancomycin, and Diflucan for coverage. TPN for nutritional and volume support. Added q12hr metoprolol in attempt to control heart rate, only marginally working and could be titrated if blood pressure allows. Continue pain control. 03/13/18 WBC with trend down, but still with tachycardia and intermittent temp elevations. Continues on Meropenem, vancomycin, and Diflucan for coverage. TPN for nutritional and volume support. Continue pain control. 03/14/18 WBC with elevation to 13.4. CT showing decrease size of abscess. Continues on Meropenem, vancomycin, and Diflucan for coverage. TPN for nutritional and volume support. Electrolytes and renal status stable. Continue pain control. Continue activities as able. 03/15/18 WBC with stable at 13.7. Platelets with decrease to 594. Less temp elevations seen. Continues on Meropenem, vancomycin, and Diflucan for coverage. TPN for nutritional and volume support. Electrolytes and renal status stable. Dr Gomez trying NG clamping and clear liquids. Continue pain control. Continue activities as able. 03/16/18 WBC with decrease to 11.7. Platelets with decrease to 546. Less temp elevations seen. Continues on Meropenem, vancomycin, and Diflucan for coverage. TPN for nutritional and volume support. Electrolytes and renal status stable. NG removed; clear liquids. 03/17/18 WBC with decrease to 10.1. Platelets with decrease to 529. Less temp elevations seen. Evaluated by Dr Ac today - vancomycin stopped and changed meropenem to Zosyn and continued Diflucan. TPN for nutritional and volume support. Electrolytes and renal status stable. Advanced to regular diet but oral drive low. HGB variable, but trend down. Will give 1 unit pRBC due to continued tachycardia in post op patent. Continue pain control. Continue activities as able - walking in halls with nursing help. 03/18/2018 White blood cell count today is up mildly to 12.1. Bands are up to 7 from one yesterday. He has been afebrile over 24 hours. Hemoglobin improved to 9.5 up from 7.1 yesterday. He received 1 unit of blood yesterday. He does have mildly elevated phosphorus and magnesium. Discussed with pharmacy. The rate of his TPN will be decreased. Will recheck phosphorus and magnesium tomorrow. Repeat INR tomorrow. Repeat CBC and renal panel tomorrow. Advance diet as tolerated. Will try oral supplements. Continue ambulation with assist. The patient continues to have persistent tachycardia this hospital course, but rate is slowly improving. No real change with transfusion of 1 unit of blood. Recheck C-reactive protein tomorrow Discussed case with CCU nursing. We'll check a vitamin B-12 tomorrow regarding borderline low B-12 level Greater than 40 minutes of critical care time spent seeing and evaluating the patient in determining care plan. 03/19/2018 White blood cell count continues to increase and is 16.5 today. Bands are 6 down from 7 yesterday. Hemoglobin has improved to 10.9. Patient remains afebrile. C-reactive protein has decreased from 181 down to 75. We'll continue on fluconazole and Zosyn for intra-abdominal abscesses. Advance diet as tolerated. Continue TPN for now, he will receive a customized formula with no phosphorus and decreased magnesium and calcium. Continue ambulation with assist Recheck CBC with manual differential, renal panel, magnesium tomorrow. 03/20/2018 White blood cell count continues to increase and is 18.8 today from 16.8 yesterday. Bands are 1 down from 6 yesterday. Temperature currently is 99.9. Dr. Gomez has ordered CT abdomen with contrast. The patient is currently on day 4 of Zosyn. He has been on fluconazole since at least February 23. Meropenem was discontinued March 18. Continue TPN for now, he is on a customized formula. Continue ambulation with assist Recheck CBC with manual differential, renal panel, magnesium tomorrow. Discussed with the patient's nurse and family. 03/21/18 CT abdomen with contrast obtained yesterday and shows a decrease in size of the intra-abdominal abscesses with no new abscess formation. White count is essentially stable from yesterday. The patient remains afebrile. He continues on fluconazole which was started February 23 and Zosyn which was started March 17. Prior to being on Zosyn, he was on meropenem but this was discontinued March 18 He continues to have tachycardia, but urine output remains stable. Fluid boluses in the past have not improved tachycardia. He does not appear to be in pain or anxious at this time. He is on fentanyl patch for pain and has when necessary medication for pain and anxiety. Will check TSH and reflex T4. 03/22/18 Stable, TSH normal. Mcdermott catheter discontinued. Pain well-controlled; taking by mouth well. 03/23/18 Oral intake improving, has been on a regular diet for approximately 5 days now and is eating meals well. Will discuss tapering TPN off with surgery. Renal function, hemoglobin, and blood pressure all stable. Persistent tachycardia, patient tolerates well-does not respond to additional fluids and patient does not appear to be in pain. Continue fluconazole and Zosyn-antibiotics under the management of Dr. Ac. 03/24/18 Discontinuing TPN today; stable to transfer out of ICU. Otherwise stable. 03/25/18 Doing well, TPN discontinued yesterday. Blood sugars stable following discontinuation of TPN. Accu-Cheks DC'd. 03/26/18 Stable, no change in therapy. 03/27/[address] Ac - Continue Zosyn and fluconazole. He will need at least 2 weeks of antibiotics, but he might require more. I would recommend repeat CT in a couple weeks to make sure the abscesses are resolved before stopping antibiotics. Will change the fluconazole to po. WBC normal. Hgb 8.9. CRP increased to 112.6 but peaked at 182 earlier in the month. Ongoing tachycardia - cortisol level normal at 16. Trial low-dose beta eugene ( metoprolol 6.25 mg twice a day) to suppress tachycardia. 03/28/[address] doing well. Heart rate with slight decrease since starting metoprolol. Continue with Zosyn and fluconazole. Continue with wound vac and drains. Encourage ambulation to help strength. 03/29/19 Continue with Zosyn and fluconazole. Continue with wound vac and drains - anticipate repeat CT tomorrow. Will give IV Iron due to low iron levels - discussed with Pharm. Will have dose today, 03/31, and 04/03. 03/30/18 Continues to work well this therapy. Oral drive stable. CT showing unchanged abdominal and pelvic surgical drains with further decreased size of the left subdiaphragmatic fluid collection and essential resolution of the additional previously noted collections within the left paracolic gutter and peripancreatic region. Drain and wound vac care as per surgery. Dr. Hills will review report from CT today before pulling drains and deciding if midline incision can be closed. Continue with Zosyn and fluconazole for antimicrobial coverage. Increase metoprolol to 12.5mg BIDWM to help tachycardia. BP stable.
[2018-03-31] MEDS: SODIUM FERRIC GLUC. COMPLEX 125 MG in NS 100 ML IV SCH (11:06)
[2018-03-31] MEDS: NS FLUSH BAG 500ml IV PRN (15:12)
--- NOTE | 2018-03-31 15:37 | Progress Note ---
- Date 03/31/18 Subjective: F/U: Toxic Megacolon, Perforation of splenic flexure, Multiple areas of intraabdominal abscess formation Doing well this afternoon. Ambulating in halls well with therapy. Eating well. No f/c or temp elevations. Lab stable. Breathing well. Objective Vital signs: Temperature 97.1 F 03/31/18 07:36 Pulse Rate 123 H 03/31/18 12:00 Respiratory Rate 18 03/31/18 12:00 Blood Pressure 119/69 03/31/18 12:00 Pulse Oximetry 100 03/31/18 12:00 Rhythm: Sinus Tachycardia Height/Weight/BMI: Height 1.75 m Weight 58.6 kg Body Mass Index 19.6 - Constitutional Present: well developed, thin, cooperative. Absent: combative, agitated - Routine HEENT Exam Head: Present: normocephalic, atraumatic Eye: Present: EOMI, PERRL, normal accommodation ENT: Present: mucous membranes moist - Routine Respiratory Exam Present: CTA bilaterally. Absent: respiratory distress - Routine Cardiovascular Exam Present: no murmur, tachycardia (Regular) - Routine Abdominal Exam Present: soft, normoactive bowel sounds. Absent: non distended - Routine Extremities Exam Present: no edema, pulses intact. Absent: cyanosis, clubbing - Routine Musculoskeletal Exam Musculoskeletal: Present: no clubbing or cyanosis - Routine Skin Exam Present: dry, warm - Routine Neurological Exam Present: alert, CN II-XII intact, moving all extremities, vision grossly intact , hearing grossly intact, normal speech. Absent: altered mental status - Routine Psychiatric Exam Present: normal affect, cooperative Results - Labs CBC & Chem 7: 03/31/18 04:06 03/31/18 04:06 Microbiology Results: Microbiology 03/01/18 18:56 Abdomen, Left Upper Gram Stain - Final 03/01/18 18:56 Abdomen, Left Upper Surgical Culture - Final Escherichia coli Anaerobic Gram-Negative Bhanu Anaerobic Gram-Positive Cocci 02/23/18 20:15 Peripheral/Iv Start Gram Stain - Final Not performed 02/23/18 20:15 Peripheral/Iv Start Blood Culture - Final No Growth After 5 Days 02/23/18 20:05 Peripheral/Iv Start Gram Stain - Final Not performed 02/23/18 20:05 Peripheral/Iv Start Blood Culture - Final No Growth After 5 Days 02/20/18 20:07 Peripheral/Iv Start Blood Culture - Final No Growth After 5 Days Assessment and Plan (1) Megacolon Problem details: Toxic megacolon Current visit: Yes Status: Resolved (2) Perforation of colon Problem details: Perforation of the splenic flexure due to ischemic changes Current visit: Yes Status: Acute Assessment and Plan: Assessment 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 On meropenem 03/08-03/17, Vancomycin 03/07-03/17; Zosyn initiated on March 18. Tachycardia -persistent during the hospital course Severe constipation-resolved Severe sepsis -resolved Fever Severe iron deficiency anemia-received IV iron 02/25/2018 and 03/04/2018. He has had a total of 6 units of blood, he received his last unit 03/17/2018 Autism Dental problems Hypophosphatemia-resolved Hyperphosphatemia-on TPN Hypermagnesemia-on TPN-resolved Hypokalemia (Not POA) -resolved LLL atelectasis Acute kidney injury with oliguria-postop -resolved Hyperkalemia (Not POA) -resolved Thrombocytosis (Not POA) Mild elevation of INR of 1.39 on 03/19/2018 Plan Clinically doing well. Lab stable. Strength and functional status improving. Dr Ac recommends changing from Zosyn to ciprofloxacin 500mg BID and metronidazole 500md BID in conjunction with oral Diflucan. Will change antibiotics and monitor clinical response off IV antibiotics. Continue drain and wound vac care as per surgery. Little change in heart rate with increased metoprolol - will continue to monitor. Case discussed with patient's parents. Time spent with patient care 25 minutes. DVT Prophylaxis: SCD's, Lovenox Resuscitation Status: Full Code - Time spent with patient Time with patient PN: 25 minutes - Physician Narrative Physician: Daniel Stevens MD Narrative: Date: 03/31/18 Time: 1531 Hospital Course Summary Disclaimer: The visit summary below is not to be considered part of the above Progress Note. Hospital Course: 02/20/18 Admit, CCU. Bowel rest - NPO. Cont IVF - 1/2 NS with Na of 144. Consult Dr. Gomez for mgt. Sx management with Protonix, morphine, Zofran. Cont IVF for tachycardia; sepsis. Repeat lactate. Cont Zosyn for bowel coverage. Follow BC results. Iron w/u in progress. Type & screen ordered. D/W with Dr. Stevens and RN. 02/22/18 Gastrografin enema 02/21 with copious stool resulting. However, still with stool in rectal vault. Deferring further management to surgery team, await recs. Cont Zosyn given bandemia, tachycardia and concern for toxic megacolon. 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 Clinically deteriorating. Going for surgery for perforation/free air. Near total colectomy performed. Became hypotensive, tachycardic with rates into 180s. Aggressively fluid resuscitated. 02/24/18 UOP, tachycardia improved. Cont abx. Initiate TPN. Monitoring for return of bowel fxn. 02/25/18 Given Kphos Transfused another 1U PRBCs. Stopped LR. Surgery to trial clamping NGT. Intermittently febrile- rectal Tylenol. 02/26/18 Did have fever overnight. Has tolerated NGT clamping. No O2 requirements. No N/V /CP. Hasn't been able to perform IS very well. 02/27/18 Remains on TPN, tolerating limited oral liquids earlier today however resultant emesis has required resumption of NG suction. Good output per ostomy; 2400 mL output reported during prior 24-hour period. Hemoglobin drifting down, ongoing hypokalemia-post being reassessed this afternoon. Potassium increased and TPN but may require supplemental boluses due to potassium lost in stool and emesis. Persistent tachycardia-may require additional blood transfusion. Remains on Zosyn for peritonitis; chest x-ray with pleural effusion but no evidence of pneumonia. May require repeat CT abdomen/pelvis to exclude intra-abdominal abscess. 02/28/18 Remains on TPN, electrolytes stable. Good urine output per ostomy but continues to have high volume output per NG. Output significantly higher than input, weight down, ongoing tachycardia--> 1 L fluid bolus tonight. Anticipate ongoing need for fluids to match fluid losses. CT abdomen/pelvis discussed with radiology this evening and subsequently with Dr. Hills; will review further with radiology tomorrow to determine if drainage can be performed of the subphrenic abscess percutaneously or if surgical drainage/washout will be needed due to presence of multiple smaller fluid collections suggestive of early abscesses. Dr. Hills notified patient 's parents of findings. Hemoglobin continues to drift down very slowly, may be slightly hemoconcentrated at present. Type and screen in a.m. Anticipating transfusion in the next 1-2 days. 03/01/18 OP Day - Exploratory laparotomy, drainage of multiple intraabdominal abscesses, fecal disimpaction, intraoperative flexible proctoscopy. Subdiaphragmatic abscess and left upper quadrant-discussed with radiology and message subsequently relayed to Dr. Hills regarding potential risk of percutaneous drainage. Patient tenably scheduled to return to the operating room later today. Several very small extensive gas in the pelvis without clear room enhancement to suggest abscess, may simply be postoperative change. Remains on TPN, electrolytes stable. Good urine output per ostomy but continues to have high volume output per NG. Output significantly higher than input, weight down, ongoing tachycardia--> 1 L fluid bolus this a.m. and continue normal saline at 100 mL per hour. 2 units PRBCs matched preoperatively; one being given prior to surgery for hemoglobin 7.4. 03/02/18 s/p ex lap with placement of drains by Dr. Hills. Febrile before surgery. WBC up post-op. Wound cx growing GPC, GNR, GPR. Continue Zosyn Remains on TPN, reduce K+. Good urine output. Output per NG down. Continued tachycardia. Continue IVF and treat pain. Output significantly higher than input, weight down, ongoing tachycardia--> 1 L fluid bolus this a.m. and continue normal saline at 100 mL per hour. Anticipate ongoing need for fluids to match fluid losses. 1 unit PRBCs given 03/01. Total of 4 units transfused Ferrlecit dose given 02/25, plan to repeat dose 03/04. Discussed with nursing who provide supplemental history; mother updated. Prognosis guarded. 03/03/18 s/p ex lap 03/01 with placement of drains by Dr. Hills. Afebrile and WBC down. Wound cx growing GPC, GNR, GPR. Continue Zosyn and fluconazole Continue TPN, K+ improved. Good urine output. Output per NG and ostomy down since 03/01 ex lap. Continued tachycardia. Continue IVF and treat pain. ? whether anxious. Trial of Ativan Anticipate ongoing need for fluids to match fluid losses. 1 unit PRBCs given 03/01. Total of 4 units transfused Ferrlecit dose given 02/25, plan to repeat dose 03/04. Discussed with nursing who provide supplemental history; mother updated. Prognosis guarded. 03/04/18 s/p ex lap 03/01 with placement of drains by Dr. Hills. Fever and WBC up slightly. Wound cx growing e coli, sensitive to Zosyn. Fluconazole. Check CXR Continue TPN, K+ improved. Good urine output. Output per NG and ostomy down since 03/01 ex lap. Continued tachycardia. Hold LR as patient with trace edema. Start fentanyl patch for pain. He got 28 mg iv morphine yesterday. Starting fentanyl at 12mcg d /t possible interaction with Fluconazole. 1 unit PRBCs given 03/01. Total of 4 units transfused Ferrlicit dose given 02/25, plan to repeat dose 03/04. Discussed with nursing who provide supplemental history. Encourage activity. Prognosis guarded 03/05/18 s/p ex lap 03/01 with placement of drains by Dr. Hills. Wound VAC. Fever. WBC down slightly. Wound cx growing e coli, sensitive to Zosyn. Fluconazole. Check CXR. Continue TPN, decrease Mg. Good urine output. Output per NG up yesterday. Continued tachycardia. Holding LR as patient with trace edema. Appears more comfortable with fentanyl patch for pain. Platelets trending up. Check inflammatory markers. If continued fever, consider repeating CT Encourage activity. 03/06/18 Temp elevations to 100.5 - 101.7. Persistent tachycardia in 130s. BP 100's. WBC with gradual trend down to 17.9 - was 25.0 on 03/02. Platelets trending up to 971 (was 407 on 03/02). Electrolytes and renal status stable - on TPN. Will continue with Zosyn and Diflucan for antimicrobial coverage. Continue with wound vac and drains. CT scan of ab/pelvis to exclude occult abscess formation. Encourage continued activities. 03/07/18 WBC with gradual trend down to 14.3 - was 17.9 on yesterday. Platelets elevated at 961 (was 971 yesterday). Hemoglobin persistently low at 7.6; with continued tachycardia will give 1 unit of pRBC. Electrolytes and renal status stable - on TPN. Will continue with Zosyn for antimicrobial coverage; Dr Gomez added Vancomycin and increased Diflucan to 200mg daily. Continue with wound vac and drains. CT scan of ab/pelvis showed possible new abscess formation in the suprapubic region and omental area. Encourage continued activities. 03/08/18 WBC with increase back to 17.1. HGB increased to 8.2 post transfusion yesterday. Pharm recommended changing Zosyn to Meropenem - did agree. Continue vancomycin and Diflucan. Will continue with TPN for nutritional support - NS bolus of 500cc to help with tachycardia. Continue with pain control. 03/09/18 Temp elevations continue. WBC with decrease to 15.6, but increased bands noted. Renal status and electrolytes stable. Continues of Meropenem, vancomycin, and Diflucan for coverage. Dr Gomez plan repeating CT scan with contrast (though NG) tomorrow to check for bowel function and further abscesses. TPN for nutritional and volume support. Continue with MS for pain, add Aspercreme for muscle discomfort. 03/10/18 Temp elevations continue. WBC 16.4. Renal status and electrolytes stable. Little change in overall status. CT ab/pelvis shown abscess with drain in place, however abscess has increased in size. Sx working to have drains flushed. Continues on Meropenem, vancomycin, and Diflucan for coverage. TPN for nutritional and volume support. Will give 500cc NS bolus to help improve BP. 03/11/18 Temp elevations continue. WBC trended down to 14. Renal status and electrolytes stable. Little change in overall status. CT ab/pelvis shown abscess with drain in place, however abscess has increased in size. Sx working to have drains flushed. Continues on Meropenem, vancomycin, and Diflucan for coverage. TPN for nutritional and volume support. Repeat 500cc NS bolus today and add metoprolol for tachycardia as BP allows. Continue pain control. 03/12/18 Temp elevations continue. WBC trended down to 12.7. Renal status and electrolytes stable. Little change in overall status. CT ab/pelvis shown abscess with drain in place, however abscess has increased in size per CT 03/10/18. Sx working to have drains flushed. Continues on Meropenem, vancomycin, and Diflucan for coverage. TPN for nutritional and volume support. Added q12hr metoprolol in attempt to control heart rate, only marginally working and could be titrated if blood pressure allows. Continue pain control. 03/13/18 WBC with trend down, but still with tachycardia and intermittent temp elevations. Continues on Meropenem, vancomycin, and Diflucan for coverage. TPN for nutritional and volume support. Continue pain control. 03/14/18 WBC with elevation to 13.4. CT showing decrease size of abscess. Continues on Meropenem, vancomycin, and Diflucan for coverage. TPN for nutritional and volume support. Electrolytes and renal status stable. Continue pain control. Continue activities as able. 03/15/18 WBC with stable at 13.7. Platelets with decrease to 594. Less temp elevations seen. Continues on Meropenem, vancomycin, and Diflucan for coverage. TPN for nutritional and volume support. Electrolytes and renal status stable. Dr Gomez trying NG clamping and clear liquids. Continue pain control. Continue activities as able. 03/16/18 WBC with decrease to 11.7. Platelets with decrease to 546. Less temp elevations seen. Continues on Meropenem, vancomycin, and Diflucan for coverage. TPN for nutritional and volume support. Electrolytes and renal status stable. NG removed; clear liquids. 03/17/18 WBC with decrease to 10.1. Platelets with decrease to 529. Less temp elevations seen. Evaluated by Dr Ac today - vancomycin stopped and changed meropenem to Zosyn and continued Diflucan. TPN for nutritional and volume support. Electrolytes and renal status stable. Advanced to regular diet but oral drive low. HGB variable, but trend down. Will give 1 unit pRBC due to continued tachycardia in post op patent. Continue pain control. Continue activities as able - walking in halls with nursing help. 03/18/2018 White blood cell count today is up mildly to 12.1. Bands are up to 7 from one yesterday. He has been afebrile over 24 hours. Hemoglobin improved to 9.5 up from 7.1 yesterday. He received 1 unit of blood yesterday. He does have mildly elevated phosphorus and magnesium. Discussed with pharmacy. The rate of his TPN will be decreased. Will recheck phosphorus and magnesium tomorrow. Repeat INR tomorrow. Repeat CBC and renal panel tomorrow. Advance diet as tolerated. Will try oral supplements. Continue ambulation with assist. The patient continues to have persistent tachycardia this hospital course, but rate is slowly improving. No real change with transfusion of 1 unit of blood. Recheck C-reactive protein tomorrow Discussed case with CCU nursing. We'll check a vitamin B-12 tomorrow regarding borderline low B-12 level Greater than 40 minutes of critical care time spent seeing and evaluating the patient in determining care plan. 03/19/2018 White blood cell count continues to increase and is 16.5 today. Bands are 6 down from 7 yesterday. Hemoglobin has improved to 10.9. Patient remains afebrile. C-reactive protein has decreased from 181 down to 75. We'll continue on fluconazole and Zosyn for intra-abdominal abscesses. Advance diet as tolerated. Continue TPN for now, he will receive a customized formula with no phosphorus and decreased magnesium and calcium. Continue ambulation with assist Recheck CBC with manual differential, renal panel, magnesium tomorrow. 03/20/2018 White blood cell count continues to increase and is 18.8 today from 16.8 yesterday. Bands are 1 down from 6 yesterday. Temperature currently is 99.9. Dr. Gomez has ordered CT abdomen with contrast. The patient is currently on day 4 of Zosyn. He has been on fluconazole since at least February 23. Meropenem was discontinued March 18. Continue TPN for now, he is on a customized formula. Continue ambulation with assist Recheck CBC with manual differential, renal panel, magnesium tomorrow. Discussed with the patient's nurse and family. 03/21/18 CT abdomen with contrast obtained yesterday and shows a decrease in size of the intra-abdominal abscesses with no new abscess formation. White count is essentially stable from yesterday. The patient remains afebrile. He continues on fluconazole which was started February 23 and Zosyn which was started March 17. Prior to being on Zosyn, he was on meropenem but this was discontinued March 18 He continues to have tachycardia, but urine output remains stable. Fluid boluses in the past have not improved tachycardia. He does not appear to be in pain or anxious at this time. He is on fentanyl patch for pain and has when necessary medication for pain and anxiety. Will check TSH and reflex T4. 03/22/18 Stable, TSH normal. Mcdermott catheter discontinued. Pain well-controlled; taking by mouth well. 03/23/18 Oral intake improving, has been on a regular diet for approximately 5 days now and is eating meals well. Will discuss tapering TPN off with surgery. Renal function, hemoglobin, and blood pressure all stable. Persistent tachycardia, patient tolerates well-does not respond to additional fluids and patient does not appear to be in pain. Continue fluconazole and Zosyn-antibiotics under the management of Dr. Ac. 03/24/18 Discontinuing TPN today; stable to transfer out of ICU. Otherwise stable. 03/25/18 Doing well, TPN discontinued yesterday. Blood sugars stable following discontinuation of TPN. Accu-Cheks DC'd. 03/26/18 Stable, no change in therapy. 03/27/[address] Ac - Continue Zosyn and fluconazole. He will need at least 2 weeks of antibiotics, but he might require more. I would recommend repeat CT in a couple weeks to make sure the abscesses are resolved before stopping antibiotics. Will change the fluconazole to po. WBC normal. Hgb 8.9. CRP increased to 112.6 but peaked at 182 earlier in the month. Ongoing tachycardia - cortisol level normal at 16. Trial low-dose beta eugene ( metoprolol 6.25 mg twice a day) to suppress tachycardia. 03/28/[address] doing well. Heart rate with slight decrease since starting metoprolol. Continue with Zosyn and fluconazole. Continue with wound vac and drains. Encourage ambulation to help strength. 03/29/19 Continue with Zosyn and fluconazole. Continue with wound vac and drains - anticipate repeat CT tomorrow. Will give IV Iron due to low iron levels - discussed with Pharm. Will have dose today, 03/31, and 04/03. 03/30/18 Continues to work well this therapy. Oral drive stable. CT showing unchanged abdominal and pelvic surgical drains with further decreased size of the left subdiaphragmatic fluid collection and essential resolution of the additional previously noted collections within the left paracolic gutter and peripancreatic region. Drain and wound vac care as per surgery. Dr. Hills will review report from CT today before pulling drains and deciding if midline incision can be closed. Continue with Zosyn and fluconazole for antimicrobial coverage. Increase metoprolol to 12.5mg BIDWM to help tachycardia. BP stable. 03/31/18 Clinically doing well. Lab stable. Strength and functional status improving. Dr Ac recommends changing from Zosyn to ciprofloxacin 500mg BID and metronidazole 500md BID in conjunction with oral Diflucan. Will change antibiotics and monitor clinical response off IV antibiotics. Continue drain and wound vac care as per surgery. Little change in heart rate with increased metoprolol - will continue to monitor.
[2018-03-31] MEDS: MetroNIDAZOLE 500 MG TABLET PO SCH (20:21)
[2018-03-31] MEDS: CIPROFLOXACIN 500 MG TABLET PO SCH (20:21)
[2018-04-01] MEDS: PANTOPRAZOLE 40 MG TABLET PO SCH (05:37)
[2018-04-01] MEDS: FLUCONAZOLE 100 MG TABLET PO SCH (09:58)
[2018-04-01] MEDS: ENOXAPARIN 40 MG/0.4 ML INJECTION SQ SCH (09:59)
[2018-04-01] MEDS: MetroNIDAZOLE 500 MG TABLET PO SCH ×2 (09:59→21:44)
[2018-04-01] MEDS: CIPROFLOXACIN 500 MG TABLET PO SCH ×2 (09:59→21:44)
[2018-04-01] MEDS: SALINE FLUSH 10ml SYRINGE IVF PRN (10:04)
--- NOTE | 2018-04-01 12:58 | Progress Note ---
DATE OF VISIT 03/31/2018 REASON FOR VISIT Cover surgical care for Dr. Gomez. SUBJECTIVE Cosmo still reports abdominal pain on questioning but says that he is doing well. Dr. Ac had felt that transition to oral antibiotics and oral antifungals would be appropriate but that he would need another repeat CT scan in about two weeks. SUBJECTIVE VITAL SIGNS: Afebrile with stable vitals on room air. He continues to have heart rates in the low 1-teens. GENERAL: The patient is awake and alert. He is in no acute distress. ABDOMEN: Soft, minimally tender. His drains show clear output consistent with the flushes. His drains were removed without problems. His ostomy continues to have good output. LABORATORY DATA White blood cell count 8.0. IMPRESSION 1. Status post exploratory laparotomies x 2 with end colostomy formation/ Mendoza's pouch formation due to colonic rupture and feculent peritonitis. 2. Left subdiaphragmatic abscess - ongoing but improved in size. Infectious Disease feels he could be transitioned to oral antimicrobials. PLAN 1. Since the flushes are not reaching the actual abscess cavity and there does not appear to be connection with the subdiaphragmatic cavity I am going to remove all of the surgical drains. If drainage is desired then he would need to be in the operating room since percutaneous drain placement was not possible in the location without penetrating the pleural space and lung. 2. Continue other care. Please see separate procedure note from Nadeem Manning APRN, from earlier today. I do agree with her documentation. SYLVAIN
--- NOTE | 2018-04-01 13:04 | Progress Note ---
DATE OF VISIT 04/01/2018 REASON FOR VISIT Covering surgical care for Dr. Gomez. SUBJECTIVE Arslan did have a leak of his ostomy bag earlier today but this has been changed. He says that his abdomen feels better after removal of the drains. His nurse reports no issues this morning. OBJECTIVE VITAL SIGNS: Afebrile. His pulse has decreased to just below 100. GENERAL: The patient is awake and alert. He is lying in bed in no acute distress. ABDOMEN: Soft, nontender. His wound VAC remains in position along with his ostomy appliance. His drain exit sites are covered with gauze dressings. IMPRESSION 1. Status post exploratory laparotomies x 2 with end colostomy/Mendoza's pouch formation from prior colonic rupture and feculent peritonitis. 2. Left-sided diaphragmatic abscess - ongoing. Clinically his white count is normal and tachycardia is improving. PLAN 1. Continue to monitor through the weekend. 2. Dr. Gomez is returning Tuesday to reassess for possible intervention of the subdiaphragmatic abscess versus delayed primary closure of his midline incision. 3. Antimicrobials have been changed over to the oral route per Dr. Ac's recommendations. [facility]
--- NOTE | 2018-04-01 14:01 | Progress Note ---
- Date 04/01/18 Subjective: F/U: Toxic Megacolon, Perforation of splenic flexure, Multiple areas of intraabdominal abscess formation Resting in bed, watching movie videos. No specific complaints. Not had temp elevations since changing to oral agent. WBC stable. Eating and moving well. Objective Vital signs: Temperature 96.5 F L 04/01/18 11:54 Pulse Rate 99 04/01/18 11:54 Respiratory Rate 16 04/01/18 11:54 Blood Pressure 105/71 04/01/18 11:54 Pulse Oximetry 98 04/01/18 11:54 Rhythm: Sinus Tachycardia Height/Weight/BMI: Height 1.75 m Weight 60.4 kg Body Mass Index 19.6 - Constitutional Present: well developed, thin, cooperative - Routine HEENT Exam Head: Present: normocephalic, atraumatic Eye: Present: EOMI, PERRL, normal accommodation ENT: Present: mucous membranes moist - Routine Respiratory Exam Present: CTA bilaterally. Absent: rales, respiratory distress, rhonchi, wheezes , crackles - Routine Cardiovascular Exam Present: no murmur, tachycardia (Regular) - Routine Abdominal Exam Present: soft, normoactive bowel sounds, non distended - Routine Extremities Exam Present: no edema, pulses intact. Absent: cyanosis, clubbing - Routine Musculoskeletal Exam Musculoskeletal: Present: no clubbing or cyanosis, normal strength - Routine Skin Exam Present: dry, warm - Routine Neurological Exam Present: alert, CN II-XII intact, moving all extremities, vision grossly intact , hearing grossly intact. Absent: altered mental status - Routine Psychiatric Exam Present: normal affect, cooperative. Absent: anxious, agitated Results - Labs CBC & Chem 7: 04/01/18 04:23 04/01/18 04:23 Microbiology Results: Microbiology 03/01/18 18:56 Abdomen, Left Upper Gram Stain - Final 03/01/18 18:56 Abdomen, Left Upper Surgical Culture - Final Escherichia coli Anaerobic Gram-Negative Bhanu Anaerobic Gram-Positive Cocci 02/23/18 20:15 Peripheral/Iv Start Gram Stain - Final Not performed 02/23/18 20:15 Peripheral/Iv Start Blood Culture - Final No Growth After 5 Days 02/23/18 20:05 Peripheral/Iv Start Gram Stain - Final Not performed 02/23/18 20:05 Peripheral/Iv Start Blood Culture - Final No Growth After 5 Days 02/20/18 20:07 Peripheral/Iv Start Blood Culture - Final No Growth After 5 Days Assessment and Plan (1) Megacolon Problem details: Toxic megacolon Current visit: Yes Status: Resolved (2) Perforation of colon Problem details: Perforation of the splenic flexure due to ischemic changes Current visit: Yes Status: Acute Assessment and Plan: Assessment 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 On meropenem 03/08-03/17, Vancomycin 03/07-03/17; Zosyn initiated on March 18. Tachycardia -persistent during the hospital course Severe constipation-resolved Severe sepsis -resolved Fever Severe iron deficiency anemia-received IV iron 02/25/2018 and 03/04/2018. He has had a total of 6 units of blood, he received his last unit 03/17/2018 Autism Dental problems Hypophosphatemia-resolved Hyperphosphatemia-on TPN Hypermagnesemia-on TPN-resolved Hypokalemia (Not POA) -resolved LLL atelectasis Acute kidney injury with oliguria-postop -resolved Hyperkalemia (Not POA) -resolved Thrombocytosis (Not POA) Mild elevation of INR of 1.39 on 03/19/2018 Plan Continue ciprofloxacin 500mg BID and metronidazole 500md BID in conjunction with oral Diflucan for antimicrobial coverage. Clinically and biochemically tolerating this change well. Continue drain and wound vac care as per surgery. HR and BP stable. Can discontinue tele. DVT Prophylaxis: SCD's, Lovenox GI Prophylaxis: Protonix Resuscitation Status: Full Code - Time spent with patient Time with patient PN: 25 minutes - Physician Narrative Physician: Daniel Stevens MD Narrative: Date: 04/01/18 Time: 2037 Hospital Course Summary Disclaimer: The visit summary below is not to be considered part of the above Progress Note. Hospital Course: 02/20/18 Admit, CCU. Bowel rest - NPO. Cont IVF - 1/2 NS with Na of 144. Consult Dr. Gomez for mgt. Sx management with Protonix, morphine, Zofran. Cont IVF for tachycardia; sepsis. Repeat lactate. Cont Zosyn for bowel coverage. Follow BC results. Iron w/u in progress. Type & screen ordered. D/W with Dr. Stevens and RN. 02/22/18 Gastrografin enema 02/21 with copious stool resulting. However, still with stool in rectal vault. Deferring further management to surgery team, await recs. Cont Zosyn given bandemia, tachycardia and concern for toxic megacolon. 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 Clinically deteriorating. Going for surgery for perforation/free air. Near total colectomy performed. Became hypotensive, tachycardic with rates into 180s. Aggressively fluid resuscitated. 02/24/18 UOP, tachycardia improved. Cont abx. Initiate TPN. Monitoring for return of bowel fxn. 02/25/18 Given Kphos Transfused another 1U PRBCs. Stopped LR. Surgery to trial clamping NGT. Intermittently febrile- rectal Tylenol. 02/26/18 Did have fever overnight. Has tolerated NGT clamping. No O2 requirements. No N/V /CP. Hasn't been able to perform IS very well. 02/27/18 Remains on TPN, tolerating limited oral liquids earlier today however resultant emesis has required resumption of NG suction. Good output per ostomy; 2400 mL output reported during prior 24-hour period. Hemoglobin drifting down, ongoing hypokalemia-post being reassessed this afternoon. Potassium increased and TPN but may require supplemental boluses due to potassium lost in stool and emesis. Persistent tachycardia-may require additional blood transfusion. Remains on Zosyn for peritonitis; chest x-ray with pleural effusion but no evidence of pneumonia. May require repeat CT abdomen/pelvis to exclude intra-abdominal abscess. 02/28/18 Remains on TPN, electrolytes stable. Good urine output per ostomy but continues to have high volume output per NG. Output significantly higher than input, weight down, ongoing tachycardia--> 1 L fluid bolus tonight. Anticipate ongoing need for fluids to match fluid losses. CT abdomen/pelvis discussed with radiology this evening and subsequently with Dr. Hills; will review further with radiology tomorrow to determine if drainage can be performed of the subphrenic abscess percutaneously or if surgical drainage/washout will be needed due to presence of multiple smaller fluid collections suggestive of early abscesses. Dr. Hills notified patient 's parents of findings. Hemoglobin continues to drift down very slowly, may be slightly hemoconcentrated at present. Type and screen in a.m. Anticipating transfusion in the next 1-2 days. 03/01/18 OP Day - Exploratory laparotomy, drainage of multiple intraabdominal abscesses, fecal disimpaction, intraoperative flexible proctoscopy. Subdiaphragmatic abscess and left upper quadrant-discussed with radiology and message subsequently relayed to Dr. Hills regarding potential risk of percutaneous drainage. Patient tenably scheduled to return to the operating room later today. Several very small extensive gas in the pelvis without clear room enhancement to suggest abscess, may simply be postoperative change. Remains on TPN, electrolytes stable. Good urine output per ostomy but continues to have high volume output per NG. Output significantly higher than input, weight down, ongoing tachycardia--> 1 L fluid bolus this a.m. and continue normal saline at 100 mL per hour. 2 units PRBCs matched preoperatively; one being given prior to surgery for hemoglobin 7.4. 03/02/18 s/p ex lap with placement of drains by Dr. Hills. Febrile before surgery. WBC up post-op. Wound cx growing GPC, GNR, GPR. Continue Zosyn Remains on TPN, reduce K+. Good urine output. Output per NG down. Continued tachycardia. Continue IVF and treat pain. Output significantly higher than input, weight down, ongoing tachycardia--> 1 L fluid bolus this a.m. and continue normal saline at 100 mL per hour. Anticipate ongoing need for fluids to match fluid losses. 1 unit PRBCs given 03/01. Total of 4 units transfused Ferrlecit dose given 02/25, plan to repeat dose 03/04. Discussed with nursing who provide supplemental history; mother updated. Prognosis guarded. 03/03/18 s/p ex lap 03/01 with placement of drains by Dr. Hills. Afebrile and WBC down. Wound cx growing GPC, GNR, GPR. Continue Zosyn and fluconazole Continue TPN, K+ improved. Good urine output. Output per NG and ostomy down since 03/01 ex lap. Continued tachycardia. Continue IVF and treat pain. ? whether anxious. Trial of Ativan Anticipate ongoing need for fluids to match fluid losses. 1 unit PRBCs given 03/01. Total of 4 units transfused Ferrlecit dose given 02/25, plan to repeat dose 03/04. Discussed with nursing who provide supplemental history; mother updated. Prognosis guarded. 03/04/18 s/p ex lap 03/01 with placement of drains by Dr. Hills. Fever and WBC up slightly. Wound cx growing e coli, sensitive to Zosyn. Fluconazole. Check CXR Continue TPN, K+ improved. Good urine output. Output per NG and ostomy down since 03/01 ex lap. Continued tachycardia. Hold LR as patient with trace edema. Start fentanyl patch for pain. He got 28 mg iv morphine yesterday. Starting fentanyl at 12mcg d /t possible interaction with Fluconazole. 1 unit PRBCs given 03/01. Total of 4 units transfused Ferrlicit dose given 02/25, plan to repeat dose 03/04. Discussed with nursing who provide supplemental history. Encourage activity. Prognosis guarded 03/05/18 s/p ex lap 03/01 with placement of drains by Dr. Hills. Wound VAC. Fever. WBC down slightly. Wound cx growing e coli, sensitive to Zosyn. Fluconazole. Check CXR. Continue TPN, decrease Mg. Good urine output. Output per NG up yesterday. Continued tachycardia. Holding LR as patient with trace edema. Appears more comfortable with fentanyl patch for pain. Platelets trending up. Check inflammatory markers. If continued fever, consider repeating CT Encourage activity. 03/06/18 Temp elevations to 100.5 - 101.7. Persistent tachycardia in 130s. BP 100's. WBC with gradual trend down to 17.9 - was 25.0 on 03/02. Platelets trending up to 971 (was 407 on 03/02). Electrolytes and renal status stable - on TPN. Will continue with Zosyn and Diflucan for antimicrobial coverage. Continue with wound vac and drains. CT scan of ab/pelvis to exclude occult abscess formation. Encourage continued activities. 03/07/18 WBC with gradual trend down to 14.3 - was 17.9 on yesterday. Platelets elevated at 961 (was 971 yesterday). Hemoglobin persistently low at 7.6; with continued tachycardia will give 1 unit of pRBC. Electrolytes and renal status stable - on TPN. Will continue with Zosyn for antimicrobial coverage; Dr Gomez added Vancomycin and increased Diflucan to 200mg daily. Continue with wound vac and drains. CT scan of ab/pelvis showed possible new abscess formation in the suprapubic region and omental area. Encourage continued activities. 03/08/18 WBC with increase back to 17.1. HGB increased to 8.2 post transfusion yesterday. Pharm recommended changing Zosyn to Meropenem - did agree. Continue vancomycin and Diflucan. Will continue with TPN for nutritional support - NS bolus of 500cc to help with tachycardia. Continue with pain control. 03/09/18 Temp elevations continue. WBC with decrease to 15.6, but increased bands noted. Renal status and electrolytes stable. Continues of Meropenem, vancomycin, and Diflucan for coverage. Dr Gomez plan repeating CT scan with contrast (though NG) tomorrow to check for bowel function and further abscesses. TPN for nutritional and volume support. Continue with MS for pain, add Aspercreme for muscle discomfort. 03/10/18 Temp elevations continue. WBC 16.4. Renal status and electrolytes stable. Little change in overall status. CT ab/pelvis shown abscess with drain in place, however abscess has increased in size. Sx working to have drains flushed. Continues on Meropenem, vancomycin, and Diflucan for coverage. TPN for nutritional and volume support. Will give 500cc NS bolus to help improve BP. 03/11/18 Temp elevations continue. WBC trended down to 14. Renal status and electrolytes stable. Little change in overall status. CT ab/pelvis shown abscess with drain in place, however abscess has increased in size. Sx working to have drains flushed. Continues on Meropenem, vancomycin, and Diflucan for coverage. TPN for nutritional and volume support. Repeat 500cc NS bolus today and add metoprolol for tachycardia as BP allows. Continue pain control. 03/12/18 Temp elevations continue. WBC trended down to 12.7. Renal status and electrolytes stable. Little change in overall status. CT ab/pelvis shown abscess with drain in place, however abscess has increased in size per CT 03/10/18. Sx working to have drains flushed. Continues on Meropenem, vancomycin, and Diflucan for coverage. TPN for nutritional and volume support. Added q12hr metoprolol in attempt to control heart rate, only marginally working and could be titrated if blood pressure allows. Continue pain control. 03/13/18 WBC with trend down, but still with tachycardia and intermittent temp elevations. Continues on Meropenem, vancomycin, and Diflucan for coverage. TPN for nutritional and volume support. Continue pain control. 03/14/18 WBC with elevation to 13.4. CT showing decrease size of abscess. Continues on Meropenem, vancomycin, and Diflucan for coverage. TPN for nutritional and volume support. Electrolytes and renal status stable. Continue pain control. Continue activities as able. 03/15/18 WBC with stable at 13.7. Platelets with decrease to 594. Less temp elevations seen. Continues on Meropenem, vancomycin, and Diflucan for coverage. TPN for nutritional and volume support. Electrolytes and renal status stable. Dr Gomez trying NG clamping and clear liquids. Continue pain control. Continue activities as able. 03/16/18 WBC with decrease to 11.7. Platelets with decrease to 546. Less temp elevations seen. Continues on Meropenem, vancomycin, and Diflucan for coverage. TPN for nutritional and volume support. Electrolytes and renal status stable. NG removed; clear liquids. 03/17/18 WBC with decrease to 10.1. Platelets with decrease to 529. Less temp elevations seen. Evaluated by Dr Ac today - vancomycin stopped and changed meropenem to Zosyn and continued Diflucan. TPN for nutritional and volume support. Electrolytes and renal status stable. Advanced to regular diet but oral drive low. HGB variable, but trend down. Will give 1 unit pRBC due to continued tachycardia in post op patent. Continue pain control. Continue activities as able - walking in halls with nursing help. 03/18/2018 White blood cell count today is up mildly to 12.1. Bands are up to 7 from one yesterday. He has been afebrile over 24 hours. Hemoglobin improved to 9.5 up from 7.1 yesterday. He received 1 unit of blood yesterday. He does have mildly elevated phosphorus and magnesium. Discussed with pharmacy. The rate of his TPN will be decreased. Will recheck phosphorus and magnesium tomorrow. Repeat INR tomorrow. Repeat CBC and renal panel tomorrow. Advance diet as tolerated. Will try oral supplements. Continue ambulation with assist. The patient continues to have persistent tachycardia this hospital course, but rate is slowly improving. No real change with transfusion of 1 unit of blood. Recheck C-reactive protein tomorrow Discussed case with CCU nursing. We'll check a vitamin B-12 tomorrow regarding borderline low B-12 level Greater than 40 minutes of critical care time spent seeing and evaluating the patient in determining care plan. 03/19/2018 White blood cell count continues to increase and is 16.5 today. Bands are 6 down from 7 yesterday. Hemoglobin has improved to 10.9. Patient remains afebrile. C-reactive protein has decreased from 181 down to 75. We'll continue on fluconazole and Zosyn for intra-abdominal abscesses. Advance diet as tolerated. Continue TPN for now, he will receive a customized formula with no phosphorus and decreased magnesium and calcium. Continue ambulation with assist Recheck CBC with manual differential, renal panel, magnesium tomorrow. 03/20/2018 White blood cell count continues to increase and is 18.8 today from 16.8 yesterday. Bands are 1 down from 6 yesterday. Temperature currently is 99.9. Dr. Gomez has ordered CT abdomen with contrast. The patient is currently on day 4 of Zosyn. He has been on fluconazole since at least February 23. Meropenem was discontinued March 18. Continue TPN for now, he is on a customized formula. Continue ambulation with assist Recheck CBC with manual differential, renal panel, magnesium tomorrow. Discussed with the patient's nurse and family. 03/21/18 CT abdomen with contrast obtained yesterday and shows a decrease in size of the intra-abdominal abscesses with no new abscess formation. White count is essentially stable from yesterday. The patient remains afebrile. He continues on fluconazole which was started February 23 and Zosyn which was started March 17. Prior to being on Zosyn, he was on meropenem but this was discontinued March 18 He continues to have tachycardia, but urine output remains stable. Fluid boluses in the past have not improved tachycardia. He does not appear to be in pain or anxious at this time. He is on fentanyl patch for pain and has when necessary medication for pain and anxiety. Will check TSH and reflex T4. 03/22/18 Stable, TSH normal. Mcdermott catheter discontinued. Pain well-controlled; taking by mouth well. 03/23/18 Oral intake improving, has been on a regular diet for approximately 5 days now and is eating meals well. Will discuss tapering TPN off with surgery. Renal function, hemoglobin, and blood pressure all stable. Persistent tachycardia, patient tolerates well-does not respond to additional fluids and patient does not appear to be in pain. Continue fluconazole and Zosyn-antibiotics under the management of Dr. Ac. 03/24/18 Discontinuing TPN today; stable to transfer out of ICU. Otherwise stable. 03/25/18 Doing well, TPN discontinued yesterday. Blood sugars stable following discontinuation of TPN. Accu-Cheks DC'd. 03/26/18 Stable, no change in therapy. 03/27/[address] Ac - Continue Zosyn and fluconazole. He will need at least 2 weeks of antibiotics, but he might require more. I would recommend repeat CT in a couple weeks to make sure the abscesses are resolved before stopping antibiotics. Will change the fluconazole to po. WBC normal. Hgb 8.9. CRP increased to 112.6 but peaked at 182 earlier in the month. Ongoing tachycardia - cortisol level normal at 16. Trial low-dose beta eugene ( metoprolol 6.25 mg twice a day) to suppress tachycardia. 03/28/[address] doing well. Heart rate with slight decrease since starting metoprolol. Continue with Zosyn and fluconazole. Continue with wound vac and drains. Encourage ambulation to help strength. 03/29/19 Continue with Zosyn and fluconazole. Continue with wound vac and drains - anticipate repeat CT tomorrow. Will give IV Iron due to low iron levels - discussed with Pharm. Will have dose today, 03/31, and 04/03. 03/30/18 Continues to work well this therapy. Oral drive stable. CT showing unchanged abdominal and pelvic surgical drains with further decreased size of the left subdiaphragmatic fluid collection and essential resolution of the additional previously noted collections within the left paracolic gutter and peripancreatic region. Drain and wound vac care as per surgery. Dr. Hills will review report from CT today before pulling drains and deciding if midline incision can be closed. Continue with Zosyn and fluconazole for antimicrobial coverage. Increase metoprolol to 12.5mg BIDWM to help tachycardia. BP stable. 03/31/18 Clinically doing well. Lab stable. Strength and functional status improving. Dr Ac recommends changing from Zosyn to ciprofloxacin 500mg BID and metronidazole 500md BID in conjunction with oral Diflucan. Will change antibiotics and monitor clinical response off IV antibiotics. Continue drain and wound vac care as per surgery. Little change in heart rate with increased metoprolol - will continue to monitor. 04/01/18 Continue ciprofloxacin 500mg BID and metronidazole 500md BID in conjunction with oral Diflucan for antimicrobial coverage. Clinically and biochemically tolerating this change well. Continue drain and wound vac care as per surgery. HR and BP stable. Can discontinue tele.
[2018-04-02] MEDS: PANTOPRAZOLE 40 MG TABLET PO SCH (07:04)
[2018-04-02] MEDS: SALINE FLUSH 10ml SYRINGE IVF PRN ×2 (08:00→17:18)
[2018-04-02] MEDS: MetroNIDAZOLE 500 MG TABLET PO SCH ×2 (08:16→20:59)
[2018-04-02] MEDS: CIPROFLOXACIN 500 MG TABLET PO SCH ×2 (08:16→20:59)
[2018-04-02] MEDS: ENOXAPARIN 40 MG/0.4 ML INJECTION SQ SCH (08:16)
[2018-04-02] MEDS: FLUCONAZOLE 100 MG TABLET PO SCH (08:16)
--- NOTE | 2018-04-02 11:25 | Progress Note ---
- Date 04/02/18 Subjective: F/U: Toxic Megacolon, Perforation of splenic flexure, Multiple areas of intraabdominal abscess formation Sitting in bed, wanting to watch movie. Nursing reports wanting to be in bed watching movies, and needing more encouragement to be up and mobile. Not reporting ab pain. No nausea or mouth pain. Breathing well. Objective Vital signs: Temperature 96.9 F 04/02/18 11:12 Pulse Rate 103 H 04/02/18 11:12 Respiratory Rate 16 04/02/18 11:12 Blood Pressure 109/71 04/02/18 11:12 Pulse Oximetry 97 04/02/18 11:12 Rhythm: Sinus Tachycardia Height/Weight/BMI: Height 1.75 m Weight 60.3 kg Body Mass Index 19.6 - Constitutional Present: well developed, average body habitus, thin, cooperative. Absent: combative, agitated - Routine HEENT Exam Head: Present: normocephalic, atraumatic Eye: Present: EOMI, PERRL ENT: Present: mucous membranes moist - Routine Respiratory Exam Present: CTA bilaterally. Absent: rales, respiratory distress, rhonchi, wheezes , crackles - Routine Cardiovascular Exam Present: no murmur, tachycardia (regular) - Routine Abdominal Exam Present: soft, normoactive bowel sounds, non tender - Routine Extremities Exam Present: no edema, pulses intact. Absent: cyanosis, clubbing - Routine Musculoskeletal Exam Musculoskeletal: Present: no clubbing or cyanosis - Routine Skin Exam Present: dry, warm - Routine Neurological Exam Present: alert, CN II-XII intact, vision grossly intact, hearing grossly intact. Absent: altered mental status - Routine Psychiatric Exam Present: normal affect, cooperative Results - Labs CBC & Chem 7: 04/02/18 04:30 04/02/18 04:30 Microbiology Results: Microbiology 03/01/18 18:56 Abdomen, Left Upper Gram Stain - Final 03/01/18 18:56 Abdomen, Left Upper Surgical Culture - Final Escherichia coli Anaerobic Gram-Negative Bhanu Anaerobic Gram-Positive Cocci 02/23/18 20:15 Peripheral/Iv Start Gram Stain - Final Not performed 02/23/18 20:15 Peripheral/Iv Start Blood Culture - Final No Growth After 5 Days 02/23/18 20:05 Peripheral/Iv Start Gram Stain - Final Not performed 02/23/18 20:05 Peripheral/Iv Start Blood Culture - Final No Growth After 5 Days 02/20/18 20:07 Peripheral/Iv Start Blood Culture - Final No Growth After 5 Days Assessment and Plan (1) Megacolon Problem details: Toxic megacolon Current visit: Yes Status: Resolved (2) Perforation of colon Problem details: Perforation of the splenic flexure due to ischemic changes Current visit: Yes Status: Acute Assessment and Plan: Assessment 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 On meropenem 03/08-03/17, Vancomycin 03/07-03/17; Zosyn initiated on March 18. Tachycardia -persistent during the hospital course Severe constipation-resolved Severe sepsis -resolved Fever Severe iron deficiency anemia-received IV iron 02/25/2018 and 03/04/2018. He has had a total of 6 units of blood, he received his last unit 03/17/2018 Autism Dental problems Hypophosphatemia-resolved Hyperphosphatemia-on TPN Hypermagnesemia-on TPN-resolved Hypokalemia (Not POA) -resolved LLL atelectasis Acute kidney injury with oliguria-postop -resolved Hyperkalemia (Not POA) -resolved Thrombocytosis (Not POA) Mild elevation of INR of 1.39 on 03/19/2018 Plan Continue ciprofloxacin 500mg BID and metronidazole 500md BID in conjunction with oral Diflucan for antimicrobial coverage. Continue drain and wound vac care as per surgery. NPO tonight for possible drain removal/wound vac closure tomorrow. Encourage activities and ambulation. Will recheck CBC, BMP, and CRP in am secondary to resolving infection. Check prealbumin in am to assess nutritional status. DVT Prophylaxis: SCD's, Lovenox GI Prophylaxis: Protonix Resuscitation Status: Full Code - Time spent with patient Time with patient PN: 25 minutes - Physician Narrative Narrative: Date: 04/02/18 Time: 1120 Hospital Course Summary Disclaimer: The visit summary below is not to be considered part of the above Progress Note. Hospital Course: 02/20/18 Admit, CCU. Bowel rest - NPO. Cont IVF - 1/2 NS with Na of 144. Consult Dr. Gomez for mgt. Sx management with Protonix, morphine, Zofran. Cont IVF for tachycardia; sepsis. Repeat lactate. Cont Zosyn for bowel coverage. Follow BC results. Iron w/u in progress. Type & screen ordered. D/W with Dr. Stevens and RN. 02/22/18 Gastrografin enema 02/21 with copious stool resulting. However, still with stool in rectal vault. Deferring further management to surgery team, await recs. Cont Zosyn given bandemia, tachycardia and concern for toxic megacolon. 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 Clinically deteriorating. Going for surgery for perforation/free air. Near total colectomy performed. Became hypotensive, tachycardic with rates into 180s. Aggressively fluid resuscitated. 02/24/18 UOP, tachycardia improved. Cont abx. Initiate TPN. Monitoring for return of bowel fxn. 02/25/18 Given Kphos Transfused another 1U PRBCs. Stopped LR. Surgery to trial clamping NGT. Intermittently febrile- rectal Tylenol. 02/26/18 Did have fever overnight. Has tolerated NGT clamping. No O2 requirements. No N/V /CP. Hasn't been able to perform IS very well. 02/27/18 Remains on TPN, tolerating limited oral liquids earlier today however resultant emesis has required resumption of NG suction. Good output per ostomy; 2400 mL output reported during prior 24-hour period. Hemoglobin drifting down, ongoing hypokalemia-post being reassessed this afternoon. Potassium increased and TPN but may require supplemental boluses due to potassium lost in stool and emesis. Persistent tachycardia-may require additional blood transfusion. Remains on Zosyn for peritonitis; chest x-ray with pleural effusion but no evidence of pneumonia. May require repeat CT abdomen/pelvis to exclude intra-abdominal abscess. 02/28/18 Remains on TPN, electrolytes stable. Good urine output per ostomy but continues to have high volume output per NG. Output significantly higher than input, weight down, ongoing tachycardia--> 1 L fluid bolus tonight. Anticipate ongoing need for fluids to match fluid losses. CT abdomen/pelvis discussed with radiology this evening and subsequently with Dr. Hills; will review further with radiology tomorrow to determine if drainage can be performed of the subphrenic abscess percutaneously or if surgical drainage/washout will be needed due to presence of multiple smaller fluid collections suggestive of early abscesses. Dr. Hills notified patient 's parents of findings. Hemoglobin continues to drift down very slowly, may be slightly hemoconcentrated at present. Type and screen in a.m. Anticipating transfusion in the next 1-2 days. 03/01/18 OP Day - Exploratory laparotomy, drainage of multiple intraabdominal abscesses, fecal disimpaction, intraoperative flexible proctoscopy. Subdiaphragmatic abscess and left upper quadrant-discussed with radiology and message subsequently relayed to Dr. Hills regarding potential risk of percutaneous drainage. Patient tenably scheduled to return to the operating room later today. Several very small extensive gas in the pelvis without clear room enhancement to suggest abscess, may simply be postoperative change. Remains on TPN, electrolytes stable. Good urine output per ostomy but continues to have high volume output per NG. Output significantly higher than input, weight down, ongoing tachycardia--> 1 L fluid bolus this a.m. and continue normal saline at 100 mL per hour. 2 units PRBCs matched preoperatively; one being given prior to surgery for hemoglobin 7.4. 03/02/18 s/p ex lap with placement of drains by Dr. Hills. Febrile before surgery. WBC up post-op. Wound cx growing GPC, GNR, GPR. Continue Zosyn Remains on TPN, reduce K+. Good urine output. Output per NG down. Continued tachycardia. Continue IVF and treat pain. Output significantly higher than input, weight down, ongoing tachycardia--> 1 L fluid bolus this a.m. and continue normal saline at 100 mL per hour. Anticipate ongoing need for fluids to match fluid losses. 1 unit PRBCs given 03/01. Total of 4 units transfused Ferrlecit dose given 02/25, plan to repeat dose 03/04. Discussed with nursing who provide supplemental history; mother updated. Prognosis guarded. 03/03/18 s/p ex lap 03/01 with placement of drains by Dr. Hills. Afebrile and WBC down. Wound cx growing GPC, GNR, GPR. Continue Zosyn and fluconazole Continue TPN, K+ improved. Good urine output. Output per NG and ostomy down since 03/01 ex lap. Continued tachycardia. Continue IVF and treat pain. ? whether anxious. Trial of Ativan Anticipate ongoing need for fluids to match fluid losses. 1 unit PRBCs given 03/01. Total of 4 units transfused Ferrlecit dose given 02/25, plan to repeat dose 03/04. Discussed with nursing who provide supplemental history; mother updated. Prognosis guarded. 03/04/18 s/p ex lap 03/01 with placement of drains by Dr. Hills. Fever and WBC up slightly. Wound cx growing e coli, sensitive to Zosyn. Fluconazole. Check CXR Continue TPN, K+ improved. Good urine output. Output per NG and ostomy down since 03/01 ex lap. Continued tachycardia. Hold LR as patient with trace edema. Start fentanyl patch for pain. He got 28 mg iv morphine yesterday. Starting fentanyl at 12mcg d /t possible interaction with Fluconazole. 1 unit PRBCs given 03/01. Total of 4 units transfused Ferrlicit dose given 02/25, plan to repeat dose 03/04. Discussed with nursing who provide supplemental history. Encourage activity. Prognosis guarded 03/05/18 s/p ex lap 03/01 with placement of drains by Dr. Hills. Wound VAC. Fever. WBC down slightly. Wound cx growing e coli, sensitive to Zosyn. Fluconazole. Check CXR. Continue TPN, decrease Mg. Good urine output. Output per NG up yesterday. Continued tachycardia. Holding LR as patient with trace edema. Appears more comfortable with fentanyl patch for pain. Platelets trending up. Check inflammatory markers. If continued fever, consider repeating CT Encourage activity. 03/06/18 Temp elevations to 100.5 - 101.7. Persistent tachycardia in 130s. BP 100's. WBC with gradual trend down to 17.9 - was 25.0 on 03/02. Platelets trending up to 971 (was 407 on 03/02). Electrolytes and renal status stable - on TPN. Will continue with Zosyn and Diflucan for antimicrobial coverage. Continue with wound vac and drains. CT scan of ab/pelvis to exclude occult abscess formation. Encourage continued activities. 03/07/18 WBC with gradual trend down to 14.3 - was 17.9 on yesterday. Platelets elevated at 961 (was 971 yesterday). Hemoglobin persistently low at 7.6; with continued tachycardia will give 1 unit of pRBC. Electrolytes and renal status stable - on TPN. Will continue with Zosyn for antimicrobial coverage; Dr Gomez added Vancomycin and increased Diflucan to 200mg daily. Continue with wound vac and drains. CT scan of ab/pelvis showed possible new abscess formation in the suprapubic region and omental area. Encourage continued activities. 03/08/18 WBC with increase back to 17.1. HGB increased to 8.2 post transfusion yesterday. Pharm recommended changing Zosyn to Meropenem - did agree. Continue vancomycin and Diflucan. Will continue with TPN for nutritional support - NS bolus of 500cc to help with tachycardia. Continue with pain control. 03/09/18 Temp elevations continue. WBC with decrease to 15.6, but increased bands noted. Renal status and electrolytes stable. Continues of Meropenem, vancomycin, and Diflucan for coverage. Dr Gomez plan repeating CT scan with contrast (though NG) tomorrow to check for bowel function and further abscesses. TPN for nutritional and volume support. Continue with MS for pain, add Aspercreme for muscle discomfort. 03/10/18 Temp elevations continue. WBC 16.4. Renal status and electrolytes stable. Little change in overall status. CT ab/pelvis shown abscess with drain in place, however abscess has increased in size. Sx working to have drains flushed. Continues on Meropenem, vancomycin, and Diflucan for coverage. TPN for nutritional and volume support. Will give 500cc NS bolus to help improve BP. 03/11/18 Temp elevations continue. WBC trended down to 14. Renal status and electrolytes stable. Little change in overall status. CT ab/pelvis shown abscess with drain in place, however abscess has increased in size. Sx working to have drains flushed. Continues on Meropenem, vancomycin, and Diflucan for coverage. TPN for nutritional and volume support. Repeat 500cc NS bolus today and add metoprolol for tachycardia as BP allows. Continue pain control. 03/12/18 Temp elevations continue. WBC trended down to 12.7. Renal status and electrolytes stable. Little change in overall status. CT ab/pelvis shown abscess with drain in place, however abscess has increased in size per CT 03/10/18. Sx working to have drains flushed. Continues on Meropenem, vancomycin, and Diflucan for coverage. TPN for nutritional and volume support. Added q12hr metoprolol in attempt to control heart rate, only marginally working and could be titrated if blood pressure allows. Continue pain control. 03/13/18 WBC with trend down, but still with tachycardia and intermittent temp elevations. Continues on Meropenem, vancomycin, and Diflucan for coverage. TPN for nutritional and volume support. Continue pain control. 03/14/18 WBC with elevation to 13.4. CT showing decrease size of abscess. Continues on Meropenem, vancomycin, and Diflucan for coverage. TPN for nutritional and volume support. Electrolytes and renal status stable. Continue pain control. Continue activities as able. 03/15/18 WBC with stable at 13.7. Platelets with decrease to 594. Less temp elevations seen. Continues on Meropenem, vancomycin, and Diflucan for coverage. TPN for nutritional and volume support. Electrolytes and renal status stable. Dr Gomez trying NG clamping and clear liquids. Continue pain control. Continue activities as able. 03/16/18 WBC with decrease to 11.7. Platelets with decrease to 546. Less temp elevations seen. Continues on Meropenem, vancomycin, and Diflucan for coverage. TPN for nutritional and volume support. Electrolytes and renal status stable. NG removed; clear liquids. 03/17/18 WBC with decrease to 10.1. Platelets with decrease to 529. Less temp elevations seen. Evaluated by Dr Ac today - vancomycin stopped and changed meropenem to Zosyn and continued Diflucan. TPN for nutritional and volume support. Electrolytes and renal status stable. Advanced to regular diet but oral drive low. HGB variable, but trend down. Will give 1 unit pRBC due to continued tachycardia in post op patent. Continue pain control. Continue activities as able - walking in halls with nursing help. 03/18/2018 White blood cell count today is up mildly to 12.1. Bands are up to 7 from one yesterday. He has been afebrile over 24 hours. Hemoglobin improved to 9.5 up from 7.1 yesterday. He received 1 unit of blood yesterday. He does have mildly elevated phosphorus and magnesium. Discussed with pharmacy. The rate of his TPN will be decreased. Will recheck phosphorus and magnesium tomorrow. Repeat INR tomorrow. Repeat CBC and renal panel tomorrow. Advance diet as tolerated. Will try oral supplements. Continue ambulation with assist. The patient continues to have persistent tachycardia this hospital course, but rate is slowly improving. No real change with transfusion of 1 unit of blood. Recheck C-reactive protein tomorrow Discussed case with CCU nursing. We'll check a vitamin B-12 tomorrow regarding borderline low B-12 level Greater than 40 minutes of critical care time spent seeing and evaluating the patient in determining care plan. 03/19/2018 White blood cell count continues to increase and is 16.5 today. Bands are 6 down from 7 yesterday. Hemoglobin has improved to 10.9. Patient remains afebrile. C-reactive protein has decreased from 181 down to 75. We'll continue on fluconazole and Zosyn for intra-abdominal abscesses. Advance diet as tolerated. Continue TPN for now, he will receive a customized formula with no phosphorus and decreased magnesium and calcium. Continue ambulation with assist Recheck CBC with manual differential, renal panel, magnesium tomorrow. 03/20/2018 White blood cell count continues to increase and is 18.8 today from 16.8 yesterday. Bands are 1 down from 6 yesterday. Temperature currently is 99.9. Dr. Gomez has ordered CT abdomen with contrast. The patient is currently on day 4 of Zosyn. He has been on fluconazole since at least February 23. Meropenem was discontinued March 18. Continue TPN for now, he is on a customized formula. Continue ambulation with assist Recheck CBC with manual differential, renal panel, magnesium tomorrow. Discussed with the patient's nurse and family. 03/21/18 CT abdomen with contrast obtained yesterday and shows a decrease in size of the intra-abdominal abscesses with no new abscess formation. White count is essentially stable from yesterday. The patient remains afebrile. He continues on fluconazole which was started February 23 and Zosyn which was started March 17. Prior to being on Zosyn, he was on meropenem but this was discontinued March 18 He continues to have tachycardia, but urine output remains stable. Fluid boluses in the past have not improved tachycardia. He does not appear to be in pain or anxious at this time. He is on fentanyl patch for pain and has when necessary medication for pain and anxiety. Will check TSH and reflex T4. 03/22/18 Stable, TSH normal. Mcdermott catheter discontinued. Pain well-controlled; taking by mouth well. 03/23/18 Oral intake improving, has been on a regular diet for approximately 5 days now and is eating meals well. Will discuss tapering TPN off with surgery. Renal function, hemoglobin, and blood pressure all stable. Persistent tachycardia, patient tolerates well-does not respond to additional fluids and patient does not appear to be in pain. Continue fluconazole and Zosyn-antibiotics under the management of Dr. Ac. 03/24/18 Discontinuing TPN today; stable to transfer out of ICU. Otherwise stable. 03/25/18 Doing well, TPN discontinued yesterday. Blood sugars stable following discontinuation of TPN. Accu-Cheks DC'd. 03/26/18 Stable, no change in therapy. 03/27/[address] Ac - Continue Zosyn and fluconazole. He will need at least 2 weeks of antibiotics, but he might require more. I would recommend repeat CT in a couple weeks to make sure the abscesses are resolved before stopping antibiotics. Will change the fluconazole to po. WBC normal. Hgb 8.9. CRP increased to 112.6 but peaked at 182 earlier in the month. Ongoing tachycardia - cortisol level normal at 16. Trial low-dose beta eugene ( metoprolol 6.25 mg twice a day) to suppress tachycardia. 03/28/[address] doing well. Heart rate with slight decrease since starting metoprolol. Continue with Zosyn and fluconazole. Continue with wound vac and drains. Encourage ambulation to help strength. 03/29/19 Continue with Zosyn and fluconazole. Continue with wound vac and drains - anticipate repeat CT tomorrow. Will give IV Iron due to low iron levels - discussed with Pharm. Will have dose today, 03/31, and 04/03. 03/30/18 Continues to work well this therapy. Oral drive stable. CT showing unchanged abdominal and pelvic surgical drains with further decreased size of the left subdiaphragmatic fluid collection and essential resolution of the additional previously noted collections within the left paracolic gutter and peripancreatic region. Drain and wound vac care as per surgery. Dr. Hills will review report from CT today before pulling drains and deciding if midline incision can be closed. Continue with Zosyn and fluconazole for antimicrobial coverage. Increase metoprolol to 12.5mg BIDWM to help tachycardia. BP stable. 03/31/18 Clinically doing well. Lab stable. Strength and functional status improving. Dr Ac recommends changing from Zosyn to ciprofloxacin 500mg BID and metronidazole 500md BID in conjunction with oral Diflucan. Will change antibiotics and monitor clinical response off IV antibiotics. Continue drain and wound vac care as per surgery. Little change in heart rate with increased metoprolol - will continue to monitor. 04/01/18 Continue ciprofloxacin 500mg BID and metronidazole 500md BID in conjunction with oral Diflucan for antimicrobial coverage. Clinically and biochemically tolerating this change well. Continue drain and wound vac care as per surgery. HR and BP stable. Can discontinue tele. 04/02/18 Continue ciprofloxacin 500mg BID and metronidazole 500md BID in conjunction with oral Diflucan for antimicrobial coverage. Continue drain and wound vac care as per surgery. NPO tonight for possible drain removal/wound vac closure tomorrow. Encourage activities and ambulation.
[2018-04-03] MEDS: PANTOPRAZOLE 40 MG TABLET PO SCH (06:34)
--- NOTE | 2018-04-03 08:42 | ID Progress Note ---
Subjective Date: 04/03/18 Subjective: He is NPO for surgery today per RN. Dr. Gomez is planning to try to close the abdominal incision today. Patient is not saying much in response to my questions. He was changed to oral antibiotics on Tuesday. Exam Vital Signs: Temperature 97.6 F 04/03/18 07:26 Pulse Rate 116 H 04/03/18 07:26 Respiratory Rate 16 04/03/18 04:00 Blood Pressure 115/73 04/03/18 07:26 Pulse Oximetry 95 04/03/18 07:26 Height/Weight/BMI: Height 1.75 m Weight 59.5 kg Body Mass Index 19.6 - Constitutional Present: no acute distress, well nourished, well developed, thin - Routine HEENT Exam Head: Present: normocephalic, atraumatic Eye: Present: EOMI, PERRL ENT: Present: mucous membranes moist, oropharynx clear - Routine Neck Exam Present: supple - Routine Respiratory Exam Present: CTA bilaterally - Routine Cardiovascular Exam Present: RRR (slightly tachycardic) - Routine Abdominal Exam Present: soft, non distended, non tender, ostomy Comments: no bowel sounds heard, wound VAC on midline wound - Routine Extremities Exam Absent: cyanosis, clubbing, edema, joint swelling - Routine Skin Exam Present: intact. Absent: rash Comments: PICC site ok - Routine Neurological Exam Present: alert - Routine Psychiatric Exam Present: unable to assess Results - Labs CBC & Chem 7: 04/03/18 04:11 04/03/18 04:11 Microbiology Results: Microbiology 03/01/18 18:56 Abdomen, Left Upper Gram Stain - Final 03/01/18 18:56 Abdomen, Left Upper Surgical Culture - Final Escherichia coli Anaerobic Gram-Negative Bhanu Anaerobic Gram-Positive Cocci 02/23/18 20:15 Peripheral/Iv Start Gram Stain - Final Not performed 02/23/18 20:15 Peripheral/Iv Start Blood Culture - Final No Growth After 5 Days 02/23/18 20:05 Peripheral/Iv Start Gram Stain - Final Not performed 02/23/18 20:05 Peripheral/Iv Start Blood Culture - Final No Growth After 5 Days 02/20/18 20:07 Peripheral/Iv Start Blood Culture - Final No Growth After 5 Days Impression: Sepsis, secondary to GI source Fever, leukocytosis, improving Sinus tachycardia Perforation of splenic flexure due to ischemia, s/p near total colectomy with ostomy placement 02/23/18, fecal peritonitis noted S/p operative drainage of intra-abdominal abscesses and fecal disimpaction , cultures with E. coli, anaerobic GNR, anaerobic GPC. CT 03/30 showed "unchanged abdominal and pelvic surgical drains with further decreased size of the left subdiaphragmatic fluid collection (now 5.7 x 2.7cm) and essential resolution of the additional previously noted collections within the left paracolic gutter and peripancreatic region. Severe iron deficiency anemia autism H/o toxic megacolon Recommendation: Continue antibiotics until the intra-abdominal fluid collection is resolved. Planning surgery later today to close the wound. Will change antibiotics back to IV. I would continue IV antibiotics while he is here in the hospital, except for fluconazole which has good bioavailability.
[2018-04-03] MEDS ORDERED: CIPROFLOXACIN IVPB 400 MG/200 ML BAG IV ONE (08:45)
[2018-04-03] MEDS ORDERED: FLUCONAZOLE PB 200 MG/100 ML BAG IV SCH (08:46)
--- NOTE | 2018-04-03 08:54 | General Surgery Progress Note ---
Subjective Narrative: All drains have been removed. Wound vac in place midline. Patient was not interested in interacting with me or with PT this morning. I was able to visualize the abdomen, vac nicely compressed midline, and soft brown stool in colostomy bag. There is a large dressing on the left where the drains had been, Arslan started to get agitated as I started to lift the dressing off, so I left it in place ( we will be in the OR later today and can remove it then.) He is NPO for surgery late this afternoon, ABX switched back to IV for this am dose, since he takes meds with applesauce. Nurse will try Metoprolol with sip of Sprite. - Vital Signs Last Vital Signs Temp 97.6 F 04/03/18 07:26 Pulse 116 H 04/03/18 07:26 Resp 16 04/03/18 04:00 BP 115/73 04/03/18 07:26 Pulse Ox 95 04/03/18 07:26 - Laboratory Result Diagrams: 04/03/18 04:11 04/03/18 04:11 - Abnormal Exam General: other (cognitive handicap) - Normal Exam General: awake, alert Respiratory: no labored breathing Psychiatric: other (anxious today when I wanted to take off the left abd dressing.) Assessment and Plan (1) Postoperative intra-abdominal abscess Current Visit: Yes Status: Chronic Qualifiers: Encounter type: initial encounter Qualified Code(s): T81.4XXA - Infection following a procedure, initial encounter; K65.1 - Peritoneal abscess (2) Colostomy in place Current Visit: Yes Status: Chronic (3) 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 Gomez's review of the patient. PO ABX switched to IV for this am dose only. Hospital Course Summary Disclaimer: The visit summary below is not to be considered part of the above Progress Note. Hospital Course: 02/20/18 Admit, CCU. Bowel rest - NPO. Cont IVF - 1/2 NS with Na of 144. Consult Dr. Gomez for mgt. Sx management with Protonix, morphine, Zofran. Cont IVF for tachycardia; sepsis. Repeat lactate. Cont Zosyn for bowel coverage. Follow BC results. Iron w/u in progress. Type & screen ordered. D/W with Dr. Stevens and RN. 02/22/18 Gastrografin enema 02/21 with copious stool resulting. However, still with stool in rectal vault. Deferring further management to surgery team, await recs. Cont Zosyn given bandemia, tachycardia and concern for toxic megacolon. 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 Clinically deteriorating. Going for surgery for perforation/free air. Near total colectomy performed. Became hypotensive, tachycardic with rates into 180s. Aggressively fluid resuscitated. 02/24/18 UOP, tachycardia improved. Cont abx. Initiate TPN. Monitoring for return of bowel fxn. 02/25/18 Given Kphos Transfused another 1U PRBCs. Stopped LR. Surgery to trial clamping NGT. Intermittently febrile- rectal Tylenol. 02/26/18 Did have fever overnight. Has tolerated NGT clamping. No O2 requirements. No N/V /CP. Hasn't been able to perform IS very well. 02/27/18 Remains on TPN, tolerating limited oral liquids earlier today however resultant emesis has required resumption of NG suction. Good output per ostomy; 2400 mL output reported during prior 24-hour period. Hemoglobin drifting down, ongoing hypokalemia-post being reassessed this afternoon. Potassium increased and TPN but may require supplemental boluses due to potassium lost in stool and emesis. Persistent tachycardia-may require additional blood transfusion. Remains on Zosyn for peritonitis; chest x-ray with pleural effusion but no evidence of pneumonia. May require repeat CT abdomen/pelvis to exclude intra-abdominal abscess. 02/28/18 Remains on TPN, electrolytes stable. Good urine output per ostomy but continues to have high volume output per NG. Output significantly higher than input, weight down, ongoing tachycardia--> 1 L fluid bolus tonight. Anticipate ongoing need for fluids to match fluid losses. CT abdomen/pelvis discussed with radiology this evening and subsequently with Dr. Hills; will review further with radiology tomorrow to determine if drainage can be performed of the subphrenic abscess percutaneously or if surgical drainage/washout will be needed due to presence of multiple smaller fluid collections suggestive of early abscesses. Dr. Hills notified patient 's parents of findings. Hemoglobin continues to drift down very slowly, may be slightly hemoconcentrated at present. Type and screen in a.m. Anticipating transfusion in the next 1-2 days. 03/01/18 OP Day - Exploratory laparotomy, drainage of multiple intraabdominal abscesses, fecal disimpaction, intraoperative flexible proctoscopy. Subdiaphragmatic abscess and left upper quadrant-discussed with radiology and message subsequently relayed to Dr. Hills regarding potential risk of percutaneous drainage. Patient tenably scheduled to return to the operating room later today. Several very small extensive gas in the pelvis without clear room enhancement to suggest abscess, may simply be postoperative change. Remains on TPN, electrolytes stable. Good urine output per ostomy but continues to have high volume output per NG. Output significantly higher than input, weight down, ongoing tachycardia--> 1 L fluid bolus this a.m. and continue normal saline at 100 mL per hour. 2 units PRBCs matched preoperatively; one being given prior to surgery for hemoglobin 7.4. 03/02/18 s/p ex lap with placement of drains by Dr. Hills. Febrile before surgery. WBC up post-op. Wound cx growing GPC, GNR, GPR. Continue Zosyn Remains on TPN, reduce K+. Good urine output. Output per NG down. Continued tachycardia. Continue IVF and treat pain. Output significantly higher than input, weight down, ongoing tachycardia--> 1 L fluid bolus this a.m. and continue normal saline at 100 mL per hour. Anticipate ongoing need for fluids to match fluid losses. 1 unit PRBCs given 03/01. Total of 4 units transfused Ferrlecit dose given 02/25, plan to repeat dose 03/04. Discussed with nursing who provide supplemental history; mother updated. Prognosis guarded. 03/03/18 s/p ex lap 03/01 with placement of drains by Dr. Hills. Afebrile and WBC down. Wound cx growing GPC, GNR, GPR. Continue Zosyn and fluconazole Continue TPN, K+ improved. Good urine output. Output per NG and ostomy down since 03/01 ex lap. Continued tachycardia. Continue IVF and treat pain. ? whether anxious. Trial of Ativan Anticipate ongoing need for fluids to match fluid losses. 1 unit PRBCs given 03/01. Total of 4 units transfused Ferrlecit dose given 02/25, plan to repeat dose 03/04. Discussed with nursing who provide supplemental history; mother updated. Prognosis guarded. 03/04/18 s/p ex lap 03/01 with placement of drains by Dr. Hills. Fever and WBC up slightly. Wound cx growing e coli, sensitive to Zosyn. Fluconazole. Check CXR Continue TPN, K+ improved. Good urine output. Output per NG and ostomy down since 03/01 ex lap. Continued tachycardia. Hold LR as patient with trace edema. Start fentanyl patch for pain. He got 28 mg iv morphine yesterday. Starting fentanyl at 12mcg d /t possible interaction with Fluconazole. 1 unit PRBCs given 03/01. Total of 4 units transfused Ferrlicit dose given 02/25, plan to repeat dose 03/04. Discussed with nursing who provide supplemental history. Encourage activity. Prognosis guarded 03/05/18 s/p ex lap 03/01 with placement of drains by Dr. Hills. Wound VAC. Fever. WBC down slightly. Wound cx growing e coli, sensitive to Zosyn. Fluconazole. Check CXR. Continue TPN, decrease Mg. Good urine output. Output per NG up yesterday. Continued tachycardia. Holding LR as patient with trace edema. Appears more comfortable with fentanyl patch for pain. Platelets trending up. Check inflammatory markers. If continued fever, consider repeating CT Encourage activity. 03/06/18 Temp elevations to 100.5 - 101.7. Persistent tachycardia in 130s. BP 100's. WBC with gradual trend down to 17.9 - was 25.0 on 03/02. Platelets trending up to 971 (was 407 on 03/02). Electrolytes and renal status stable - on TPN. Will continue with Zosyn and Diflucan for antimicrobial coverage. Continue with wound vac and drains. CT scan of ab/pelvis to exclude occult abscess formation. Encourage continued activities. 03/07/18 WBC with gradual trend down to 14.3 - was 17.9 on yesterday. Platelets elevated at 961 (was 971 yesterday). Hemoglobin persistently low at 7.6; with continued tachycardia will give 1 unit of pRBC. Electrolytes and renal status stable - on TPN. Will continue with Zosyn for antimicrobial coverage; Dr Gomez added Vancomycin and increased Diflucan to 200mg daily. Continue with wound vac and drains. CT scan of ab/pelvis showed possible new abscess formation in the suprapubic region and omental area. Encourage continued activities. 03/08/18 WBC with increase back to 17.1. HGB increased to 8.2 post transfusion yesterday. Pharm recommended changing Zosyn to Meropenem - did agree. Continue vancomycin and Diflucan. Will continue with TPN for nutritional support - NS bolus of 500cc to help with tachycardia. Continue with pain control. 03/09/18 Temp elevations continue. WBC with decrease to 15.6, but increased bands noted. Renal status and electrolytes stable. Continues of Meropenem, vancomycin, and Diflucan for coverage. Dr Gomez plan repeating CT scan with contrast (though NG) tomorrow to check for bowel function and further abscesses. TPN for nutritional and volume support. Continue with MS for pain, add Aspercreme for muscle discomfort. 03/10/18 Temp elevations continue. WBC 16.4. Renal status and electrolytes stable. Little change in overall status. CT ab/pelvis shown abscess with drain in place, however abscess has increased in size. Sx working to have drains flushed. Continues on Meropenem, vancomycin, and Diflucan for coverage. TPN for nutritional and volume support. Will give 500cc NS bolus to help improve BP. 03/11/18 Temp elevations continue. WBC trended down to 14. Renal status and electrolytes stable. Little change in overall status. CT ab/pelvis shown abscess with drain in place, however abscess has increased in size. Sx working to have drains flushed. Continues on Meropenem, vancomycin, and Diflucan for coverage. TPN for nutritional and volume support. Repeat 500cc NS bolus today and add metoprolol for tachycardia as BP allows. Continue pain control. 03/12/18 Temp elevations continue. WBC trended down to 12.7. Renal status and electrolytes stable. Little change in overall status. CT ab/pelvis shown abscess with drain in place, however abscess has increased in size per CT 03/10/18. Sx working to have drains flushed. Continues on Meropenem, vancomycin, and Diflucan for coverage. TPN for nutritional and volume support. Added q12hr metoprolol in attempt to control heart rate, only marginally working and could be titrated if blood pressure allows. Continue pain control. 03/13/18 WBC with trend down, but still with tachycardia and intermittent temp elevations. Continues on Meropenem, vancomycin, and Diflucan for coverage. TPN for nutritional and volume support. Continue pain control. 03/14/18 WBC with elevation to 13.4. CT showing decrease size of abscess. Continues on Meropenem, vancomycin, and Diflucan for coverage. TPN for nutritional and volume support. Electrolytes and renal status stable. Continue pain control. Continue activities as able. 03/15/18 WBC with stable at 13.7. Platelets with decrease to 594. Less temp elevations seen. Continues on Meropenem, vancomycin, and Diflucan for coverage. TPN for nutritional and volume support. Electrolytes and renal status stable. Dr Gomez trying NG clamping and clear liquids. Continue pain control. Continue activities as able. 03/16/18 WBC with decrease to 11.7. Platelets with decrease to 546. Less temp elevations seen. Continues on Meropenem, vancomycin, and Diflucan for coverage. TPN for nutritional and volume support. Electrolytes and renal status stable. NG removed; clear liquids. 03/17/18 WBC with decrease to 10.1. Platelets with decrease to 529. Less temp elevations seen. Evaluated by Dr Ac today - vancomycin stopped and changed meropenem to Zosyn and continued Diflucan. TPN for nutritional and volume support. Electrolytes and renal status stable. Advanced to regular diet but oral drive low. HGB variable, but trend down. Will give 1 unit pRBC due to continued tachycardia in post op patent. Continue pain control. Continue activities as able - walking in halls with nursing help. 03/18/2018 White blood cell count today is up mildly to 12.1. Bands are up to 7 from one yesterday. He has been afebrile over 24 hours. Hemoglobin improved to 9.5 up from 7.1 yesterday. He received 1 unit of blood yesterday. He does have mildly elevated phosphorus and magnesium. Discussed with pharmacy. The rate of his TPN will be decreased. Will recheck phosphorus and magnesium tomorrow. Repeat INR tomorrow. Repeat CBC and renal panel tomorrow. Advance diet as tolerated. Will try oral supplements. Continue ambulation with assist. The patient continues to have persistent tachycardia this hospital course, but rate is slowly improving. No real change with transfusion of 1 unit of blood. Recheck C-reactive protein tomorrow Discussed case with CCU nursing. We'll check a vitamin B-12 tomorrow regarding borderline low B-12 level Greater than 40 minutes of critical care time spent seeing and evaluating the patient in determining care plan. 03/19/2018 White blood cell count continues to increase and is 16.5 today. Bands are 6 down from 7 yesterday. Hemoglobin has improved to 10.9. Patient remains afebrile. C-reactive protein has decreased from 181 down to 75. We'll continue on fluconazole and Zosyn for intra-abdominal abscesses. Advance diet as tolerated. Continue TPN for now, he will receive a customized formula with no phosphorus and decreased magnesium and calcium. Continue ambulation with assist Recheck CBC with manual differential, renal panel, magnesium tomorrow. 03/20/2018 White blood cell count continues to increase and is 18.8 today from 16.8 yesterday. Bands are 1 down from 6 yesterday. Temperature currently is 99.9. Dr. Gomez has ordered CT abdomen with contrast. The patient is currently on day 4 of Zosyn. He has been on fluconazole since at least February 23. Meropenem was discontinued March 18. Continue TPN for now, he is on a customized formula. Continue ambulation with assist Recheck CBC with manual differential, renal panel, magnesium tomorrow. Discussed with the patient's nurse and family. 03/21/18 CT abdomen with contrast obtained yesterday and shows a decrease in size of the intra-abdominal abscesses with no new abscess formation. White count is essentially stable from yesterday. The patient remains afebrile. He continues on fluconazole which was started February 23 and Zosyn which was started March 17. Prior to being on Zosyn, he was on meropenem but this was discontinued March 18 He continues to have tachycardia, but urine output remains stable. Fluid boluses in the past have not improved tachycardia. He does not appear to be in pain or anxious at this time. He is on fentanyl patch for pain and has when necessary medication for pain and anxiety. Will check TSH and reflex T4. 03/22/18 Stable, TSH normal. Mcdermott catheter discontinued. Pain well-controlled; taking by mouth well. 03/23/18 Oral intake improving, has been on a regular diet for approximately 5 days now and is eating meals well. Will discuss tapering TPN off with surgery. Renal function, hemoglobin, and blood pressure all stable. Persistent tachycardia, patient tolerates well-does not respond to additional fluids and patient does not appear to be in pain. Continue fluconazole and Zosyn-antibiotics under the management of Dr. Ac. 03/24/18 Discontinuing TPN today; stable to transfer out of ICU. Otherwise stable. 03/25/18 Doing well, TPN discontinued yesterday. Blood sugars stable following discontinuation of TPN. Accu-Cheks DC'd. 03/26/18 Stable, no change in therapy. 03/27/[address] Ac - Continue Zosyn and fluconazole. He will need at least 2 weeks of antibiotics, but he might require more. I would recommend repeat CT in a couple weeks to make sure the abscesses are resolved before stopping antibiotics. Will change the fluconazole to po. WBC normal. Hgb 8.9. CRP increased to 112.6 but peaked at 182 earlier in the month. Ongoing tachycardia - cortisol level normal at 16. Trial low-dose beta eugene ( metoprolol 6.25 mg twice a day) to suppress tachycardia. 03/28/[address] doing well. Heart rate with slight decrease since starting metoprolol. Continue with Zosyn and fluconazole. Continue with wound vac and drains. Encourage ambulation to help strength. 03/29/19 Continue with Zosyn and fluconazole. Continue with wound vac and drains - anticipate repeat CT tomorrow. Will give IV Iron due to low iron levels - discussed with Pharm. Will have dose today, 03/31, and 04/03. 03/30/18 Continues to work well this therapy. Oral drive stable. CT showing unchanged abdominal and pelvic surgical drains with further decreased size of the left subdiaphragmatic fluid collection and essential resolution of the additional previously noted collections within the left paracolic gutter and peripancreatic region. Drain and wound vac care as per surgery. Dr. Hills will review report from CT today before pulling drains and deciding if midline incision can be closed. Continue with Zosyn and fluconazole for antimicrobial coverage. Increase metoprolol to 12.5mg BIDWM to help tachycardia. BP stable. 03/31/18 Clinically doing well. Lab stable. Strength and functional status improving. Dr Ac recommends changing from Zosyn to ciprofloxacin 500mg BID and metronidazole 500md BID in conjunction with oral Diflucan. Will change antibiotics and monitor clinical response off IV antibiotics. Continue drain and wound vac care as per surgery. Little change in heart rate with increased metoprolol - will continue to monitor. 04/01/18 Continue ciprofloxacin 500mg BID and metronidazole 500md BID in conjunction with oral Diflucan for antimicrobial coverage. Clinically and biochemically tolerating this change well. Continue drain and wound vac care as per surgery. HR and BP stable. Can discontinue tele. 04/02/18 Continue ciprofloxacin 500mg BID and metronidazole 500md BID in conjunction with oral Diflucan for antimicrobial coverage. Continue drain and wound vac care as per surgery. NPO tonight for possible drain removal/wound vac closure tomorrow. Encourage activities and ambulation.
--- NOTE | 2018-04-03 08:58 | Progress Note ---
- Date 04/03/18 Subjective: Arslan was resting in bed, just finishing up another movie. He answered "Yeah" to every question asked. He was not in any acute distress. Stool was noted in ostomy bag. He is NPO for possible intervention of the subdiaphragmatic abscess versus delayed primary closure of his midline incision. RN without immediate concerns. Objective Vital signs: Temperature 97.6 F 04/03/18 07:26 Pulse Rate 116 H 04/03/18 07:26 Respiratory Rate 16 04/03/18 04:00 Blood Pressure 115/73 04/03/18 07:26 Pulse Oximetry 95 04/03/18 07:26 Rhythm: Sinus Tachycardia Height/Weight/BMI: Height 1.75 m Weight 59.5 kg Body Mass Index 19.6 - Constitutional Present: no acute distress, well nourished, well developed, thin - Routine HEENT Exam Head: Present: normocephalic Eye: Present: PERRL. Absent: conjunctival icterus, scleral injection ENT: Present: mucous membranes moist - Routine Respiratory Exam Present: CTA bilaterally - Routine Cardiovascular Exam Present: RRR, S1, S2, tachycardia (improved) - Routine Abdominal Exam Present: soft, normoactive bowel sounds, ostomy Comments: wound vac - Routine Extremities Exam Present: no edema - Routine Musculoskeletal Exam Musculoskeletal: Present: no clubbing or cyanosis - Routine Skin Exam Present: intact, warm - Routine Neurological Exam Present: alert, oriented X3, moving all extremities. Absent: facial asymmetry - Routine Psychiatric Exam Present: cooperative Results - Labs CBC & Chem 7: 04/03/18 04:11 04/03/18 04:11 Microbiology Results: Microbiology 03/01/18 18:56 Abdomen, Left Upper Gram Stain - Final 03/01/18 18:56 Abdomen, Left Upper Surgical Culture - Final Escherichia coli Anaerobic Gram-Negative Bhanu Anaerobic Gram-Positive Cocci 02/23/18 20:15 Peripheral/Iv Start Gram Stain - Final Not performed 02/23/18 20:15 Peripheral/Iv Start Blood Culture - Final No Growth After 5 Days 02/23/18 20:05 Peripheral/Iv Start Gram Stain - Final Not performed 02/23/18 20:05 Peripheral/Iv Start Blood Culture - Final No Growth After 5 Days 02/20/18 20:07 Peripheral/Iv Start Blood Culture - Final No Growth After 5 Days Assessment and Plan (1) Megacolon Problem details: Toxic megacolon Current visit: Yes Status: Resolved (2) Perforation of colon Problem details: Perforation of the splenic flexure due to ischemic changes Current visit: Yes Status: Acute Assessment and Plan: Assessment 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 On meropenem 03/08-03/17, Vancomycin 03/07-03/17; Zosyn initiated on March 18. Tachycardia -persistent during the hospital course Severe constipation-resolved Severe sepsis -resolved Fever Severe iron deficiency anemia-received IV iron 02/25/2018 and 03/04/2018. He has had a total of 6 units of blood, he received his last unit 03/17/2018 Autism Dental problems Hypophosphatemia-resolved Hyperphosphatemia-on TPN Hypermagnesemia-on TPN-resolved Hypokalemia (Not POA) -resolved LLL atelectasis Acute kidney injury with oliguria-postop -resolved Hyperkalemia (Not POA) -resolved Thrombocytosis (Not POA) Left pleural effusion Mild elevation of INR of 1.39 on 03/19/2018 Plan Continue abx -- changed to IV route d/t possible surgical intervention today. CRP increased to 124 but WBC is normal at 7.9 and he is afebrile. Platelet count back to normal range today. HR overall improved since starting beta eugene. Prealbumin down to 13.6. [facility] OP DAY: Delayed closure midline incision; left thoracentesis, 1000 ml light yellow fluid aspirated. DVT Prophylaxis: SCD's, Lovenox GI Prophylaxis: Protonix Resuscitation Status: Full Code - Time spent with patient Time with patient PN: 25 minutes - Physician Narrative Physician: Daniel Stevens MD Narrative: Date: 04/03/18 Time: 2039 Have independently interviewed and examined pt. Chart reviewed. Case discussed with my SHINGLER. Care plan developed with my supervision; agree with above. Did check on patient this am and this afternoon before surgery - doing well. Checked back this evening post op. Resting this evening post surgery. Has been doing well today-no f/c, ambulating well. Pain has been stable. Lungs: decreased, no distress CV: tachy, regular AB: soft nd, BS decreased Plan: Continue with supportive post op care. Encourage activities for strengthening. Possible skill in near future. Hospital Course Summary Disclaimer: The visit summary below is not to be considered part of the above Progress Note. Hospital Course: 02/20/18 Admit, CCU. Bowel rest - NPO. Cont IVF - 1/2 NS with Na of 144. Consult Dr. Gomez for mgt. Sx management with Protonix, morphine, Zofran. Cont IVF for tachycardia; sepsis. Repeat lactate. Cont Zosyn for bowel coverage. Follow BC results. Iron w/u in progress. Type & screen ordered. D/W with Dr. Stevens and RN. 02/22/18 Gastrografin enema 02/21 with copious stool resulting. However, still with stool in rectal vault. Deferring further management to surgery team, await recs. Cont Zosyn given bandemia, tachycardia and concern for toxic megacolon. 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 Clinically deteriorating. Going for surgery for perforation/free air. Near total colectomy performed. Became hypotensive, tachycardic with rates into 180s. Aggressively fluid resuscitated. 02/24/18 UOP, tachycardia improved. Cont abx. Initiate TPN. Monitoring for return of bowel fxn. 02/25/18 Given Kphos Transfused another 1U PRBCs. Stopped LR. Surgery to trial clamping NGT. Intermittently febrile- rectal Tylenol. 02/26/18 Did have fever overnight. Has tolerated NGT clamping. No O2 requirements. No N/V /CP. Hasn't been able to perform IS very well. 02/27/18 Remains on TPN, tolerating limited oral liquids earlier today however resultant emesis has required resumption of NG suction. Good output per ostomy; 2400 mL output reported during prior 24-hour period. Hemoglobin drifting down, ongoing hypokalemia-post being reassessed this afternoon. Potassium increased and TPN but may require supplemental boluses due to potassium lost in stool and emesis. Persistent tachycardia-may require additional blood transfusion. Remains on Zosyn for peritonitis; chest x-ray with pleural effusion but no evidence of pneumonia. May require repeat CT abdomen/pelvis to exclude intra-abdominal abscess. 02/28/18 Remains on TPN, electrolytes stable. Good urine output per ostomy but continues to have high volume output per NG. Output significantly higher than input, weight down, ongoing tachycardia--> 1 L fluid bolus tonight. Anticipate ongoing need for fluids to match fluid losses. CT abdomen/pelvis discussed with radiology this evening and subsequently with Dr. Hills; will review further with radiology tomorrow to determine if drainage can be performed of the subphrenic abscess percutaneously or if surgical drainage/washout will be needed due to presence of multiple smaller fluid collections suggestive of early abscesses. Dr. Hills notified patient 's parents of findings. Hemoglobin continues to drift down very slowly, may be slightly hemoconcentrated at present. Type and screen in a.m. Anticipating transfusion in the next 1-2 days. 03/01/18 OP Day - Exploratory laparotomy, drainage of multiple intraabdominal abscesses, fecal disimpaction, intraoperative flexible proctoscopy. Subdiaphragmatic abscess and left upper quadrant-discussed with radiology and message subsequently relayed to Dr. Hills regarding potential risk of percutaneous drainage. Patient tenably scheduled to return to the operating room later today. Several very small extensive gas in the pelvis without clear room enhancement to suggest abscess, may simply be postoperative change. Remains on TPN, electrolytes stable. Good urine output per ostomy but continues to have high volume output per NG. Output significantly higher than input, weight down, ongoing tachycardia--> 1 L fluid bolus this a.m. and continue normal saline at 100 mL per hour. 2 units PRBCs matched preoperatively; one being given prior to surgery for hemoglobin 7.4. 03/02/18 s/p ex lap with placement of drains by Dr. Hills. Febrile before surgery. WBC up post-op. Wound cx growing GPC, GNR, GPR. Continue Zosyn Remains on TPN, reduce K+. Good urine output. Output per NG down. Continued tachycardia. Continue IVF and treat pain. Output significantly higher than input, weight down, ongoing tachycardia--> 1 L fluid bolus this a.m. and continue normal saline at 100 mL per hour. Anticipate ongoing need for fluids to match fluid losses. 1 unit PRBCs given 03/01. Total of 4 units transfused Ferrlecit dose given 02/25, plan to repeat dose 03/04. Discussed with nursing who provide supplemental history; mother updated. Prognosis guarded. 03/03/18 s/p ex lap 03/01 with placement of drains by Dr. Hills. Afebrile and WBC down. Wound cx growing GPC, GNR, GPR. Continue Zosyn and fluconazole Continue TPN, K+ improved. Good urine output. Output per NG and ostomy down since 03/01 ex lap. Continued tachycardia. Continue IVF and treat pain. ? whether anxious. Trial of Ativan Anticipate ongoing need for fluids to match fluid losses. 1 unit PRBCs given 03/01. Total of 4 units transfused Ferrlecit dose given 02/25, plan to repeat dose 03/04. Discussed with nursing who provide supplemental history; mother updated. Prognosis guarded. 03/04/18 s/p ex lap 03/01 with placement of drains by Dr. Hills. Fever and WBC up slightly. Wound cx growing e coli, sensitive to Zosyn. Fluconazole. Check CXR Continue TPN, K+ improved. Good urine output. Output per NG and ostomy down since 03/01 ex lap. Continued tachycardia. Hold LR as patient with trace edema. Start fentanyl patch for pain. He got 28 mg iv morphine yesterday. Starting fentanyl at 12mcg d /t possible interaction with Fluconazole. 1 unit PRBCs given 03/01. Total of 4 units transfused Ferrlicit dose given 02/25, plan to repeat dose 03/04. Discussed with nursing who provide supplemental history. Encourage activity. Prognosis guarded 03/05/18 s/p ex lap 03/01 with placement of drains by Dr. Hills. Wound VAC. Fever. WBC down slightly. Wound cx growing e coli, sensitive to Zosyn. Fluconazole. Check CXR. Continue TPN, decrease Mg. Good urine output. Output per NG up yesterday. Continued tachycardia. Holding LR as patient with trace edema. Appears more comfortable with fentanyl patch for pain. Platelets trending up. Check inflammatory markers. If continued fever, consider repeating CT Encourage activity. 03/06/18 Temp elevations to 100.5 - 101.7. Persistent tachycardia in 130s. BP 100's. WBC with gradual trend down to 17.9 - was 25.0 on 03/02. Platelets trending up to 971 (was 407 on 03/02). Electrolytes and renal status stable - on TPN. Will continue with Zosyn and Diflucan for antimicrobial coverage. Continue with wound vac and drains. CT scan of ab/pelvis to exclude occult abscess formation. Encourage continued activities. 03/07/18 WBC with gradual trend down to 14.3 - was 17.9 on yesterday. Platelets elevated at 961 (was 971 yesterday). Hemoglobin persistently low at 7.6; with continued tachycardia will give 1 unit of pRBC. Electrolytes and renal status stable - on TPN. Will continue with Zosyn for antimicrobial coverage; Dr Gomez added Vancomycin and increased Diflucan to 200mg daily. Continue with wound vac and drains. CT scan of ab/pelvis showed possible new abscess formation in the suprapubic region and omental area. Encourage continued activities. 03/08/18 WBC with increase back to 17.1. HGB increased to 8.2 post transfusion yesterday. Pharm recommended changing Zosyn to Meropenem - did agree. Continue vancomycin and Diflucan. Will continue with TPN for nutritional support - NS bolus of 500cc to help with tachycardia. Continue with pain control. 03/09/18 Temp elevations continue. WBC with decrease to 15.6, but increased bands noted. Renal status and electrolytes stable. Continues of Meropenem, vancomycin, and Diflucan for coverage. Dr Gomez plan repeating CT scan with contrast (though NG) tomorrow to check for bowel function and further abscesses. TPN for nutritional and volume support. Continue with MS for pain, add Aspercreme for muscle discomfort. 03/10/18 Temp elevations continue. WBC 16.4. Renal status and electrolytes stable. Little change in overall status. CT ab/pelvis shown abscess with drain in place, however abscess has increased in size. Sx working to have drains flushed. Continues on Meropenem, vancomycin, and Diflucan for coverage. TPN for nutritional and volume support. Will give 500cc NS bolus to help improve BP. 03/11/18 Temp elevations continue. WBC trended down to 14. Renal status and electrolytes stable. Little change in overall status. CT ab/pelvis shown abscess with drain in place, however abscess has increased in size. Sx working to have drains flushed. Continues on Meropenem, vancomycin, and Diflucan for coverage. TPN for nutritional and volume support. Repeat 500cc NS bolus today and add metoprolol for tachycardia as BP allows. Continue pain control. 03/12/18 Temp elevations continue. WBC trended down to 12.7. Renal status and electrolytes stable. Little change in overall status. CT ab/pelvis shown abscess with drain in place, however abscess has increased in size per CT 03/10/18. Sx working to have drains flushed. Continues on Meropenem, vancomycin, and Diflucan for coverage. TPN for nutritional and volume support. Added q12hr metoprolol in attempt to control heart rate, only marginally working and could be titrated if blood pressure allows. Continue pain control. 03/13/18 WBC with trend down, but still with tachycardia and intermittent temp elevations. Continues on Meropenem, vancomycin, and Diflucan for coverage. TPN for nutritional and volume support. Continue pain control. 03/14/18 WBC with elevation to 13.4. CT showing decrease size of abscess. Continues on Meropenem, vancomycin, and Diflucan for coverage. TPN for nutritional and volume support. Electrolytes and renal status stable. Continue pain control. Continue activities as able. 03/15/18 WBC with stable at 13.7. Platelets with decrease to 594. Less temp elevations seen. Continues on Meropenem, vancomycin, and Diflucan for coverage. TPN for nutritional and volume support. Electrolytes and renal status stable. Dr Gomez trying NG clamping and clear liquids. Continue pain control. Continue activities as able. 03/16/18 WBC with decrease to 11.7. Platelets with decrease to 546. Less temp elevations seen. Continues on Meropenem, vancomycin, and Diflucan for coverage. TPN for nutritional and volume support. Electrolytes and renal status stable. NG removed; clear liquids. 03/17/18 WBC with decrease to 10.1. Platelets with decrease to 529. Less temp elevations seen. Evaluated by Dr Ac today - vancomycin stopped and changed meropenem to Zosyn and continued Diflucan. TPN for nutritional and volume support. Electrolytes and renal status stable. Advanced to regular diet but oral drive low. HGB variable, but trend down. Will give 1 unit pRBC due to continued tachycardia in post op patent. Continue pain control. Continue activities as able - walking in halls with nursing help. 03/18/2018 White blood cell count today is up mildly to 12.1. Bands are up to 7 from one yesterday. He has been afebrile over 24 hours. Hemoglobin improved to 9.5 up from 7.1 yesterday. He received 1 unit of blood yesterday. He does have mildly elevated phosphorus and magnesium. Discussed with pharmacy. The rate of his TPN will be decreased. Will recheck phosphorus and magnesium tomorrow. Repeat INR tomorrow. Repeat CBC and renal panel tomorrow. Advance diet as tolerated. Will try oral supplements. Continue ambulation with assist. The patient continues to have persistent tachycardia this hospital course, but rate is slowly improving. No real change with transfusion of 1 unit of blood. Recheck C-reactive protein tomorrow Discussed case with CCU nursing. We'll check a vitamin B-12 tomorrow regarding borderline low B-12 level Greater than 40 minutes of critical care time spent seeing and evaluating the patient in determining care plan. 03/19/2018 White blood cell count continues to increase and is 16.5 today. Bands are 6 down from 7 yesterday. Hemoglobin has improved to 10.9. Patient remains afebrile. C-reactive protein has decreased from 181 down to 75. We'll continue on fluconazole and Zosyn for intra-abdominal abscesses. Advance diet as tolerated. Continue TPN for now, he will receive a customized formula with no phosphorus and decreased magnesium and calcium. Continue ambulation with assist Recheck CBC with manual differential, renal panel, magnesium tomorrow. 03/20/2018 White blood cell count continues to increase and is 18.8 today from 16.8 yesterday. Bands are 1 down from 6 yesterday. Temperature currently is 99.9. Dr. Gomez has ordered CT abdomen with contrast. The patient is currently on day 4 of Zosyn. He has been on fluconazole since at least February 23. Meropenem was discontinued March 18. Continue TPN for now, he is on a customized formula. Continue ambulation with assist Recheck CBC with manual differential, renal panel, magnesium tomorrow. Discussed with the patient's nurse and family. 03/21/18 CT abdomen with contrast obtained yesterday and shows a decrease in size of the intra-abdominal abscesses with no new abscess formation. White count is essentially stable from yesterday. The patient remains afebrile. He continues on fluconazole which was started February 23 and Zosyn which was started March 17. Prior to being on Zosyn, he was on meropenem but this was discontinued March 18 He continues to have tachycardia, but urine output remains stable. Fluid boluses in the past have not improved tachycardia. He does not appear to be in pain or anxious at this time. He is on fentanyl patch for pain and has when necessary medication for pain and anxiety. Will check TSH and reflex T4. 03/22/18 Stable, TSH normal. Mcdermott catheter discontinued. Pain well-controlled; taking by mouth well. 03/23/18 Oral intake improving, has been on a regular diet for approximately 5 days now and is eating meals well. Will discuss tapering TPN off with surgery. Renal function, hemoglobin, and blood pressure all stable. Persistent tachycardia, patient tolerates well-does not respond to additional fluids and patient does not appear to be in pain. Continue fluconazole and Zosyn-antibiotics under the management of Dr. Ac. 03/24/18 Discontinuing TPN today; stable to transfer out of ICU. Otherwise stable. 03/25/18 Doing well, TPN discontinued yesterday. Blood sugars stable following discontinuation of TPN. Accu-Cheks DC'd. 03/26/18 Stable, no change in therapy. 03/27/[address] Ac - Continue Zosyn and fluconazole. He will need at least 2 weeks of antibiotics, but he might require more. I would recommend repeat CT in a couple weeks to make sure the abscesses are resolved before stopping antibiotics. Will change the fluconazole to po. WBC normal. Hgb 8.9. CRP increased to 112.6 but peaked at 182 earlier in the month. Ongoing tachycardia - cortisol level normal at 16. Trial low-dose beta eugene ( metoprolol 6.25 mg twice a day) to suppress tachycardia. 03/28/[address] doing well. Heart rate with slight decrease since starting metoprolol. Continue with Zosyn and fluconazole. Continue with wound vac and drains. Encourage ambulation to help strength. 03/29/19 Continue with Zosyn and fluconazole. Continue with wound vac and drains - anticipate repeat CT tomorrow. Will give IV Iron due to low iron levels - discussed with Pharm. Will have dose today, 03/31, and 04/03. 03/30/18 Continues to work well this therapy. Oral drive stable. CT showing unchanged abdominal and pelvic surgical drains with further decreased size of the left subdiaphragmatic fluid collection and essential resolution of the additional previously noted collections within the left paracolic gutter and peripancreatic region. Drain and wound vac care as per surgery. Dr. Hills will review report from CT today before pulling drains and deciding if midline incision can be closed. Continue with Zosyn and fluconazole for antimicrobial coverage. Increase metoprolol to 12.5mg BIDWM to help tachycardia. BP stable. 03/31/18 Clinically doing well. Lab stable. Strength and functional status improving. Dr Ac recommends changing from Zosyn to ciprofloxacin 500mg BID and metronidazole 500md BID in conjunction with oral Diflucan. Will change antibiotics and monitor clinical response off IV antibiotics. Continue drain and wound vac care as per surgery. Little change in heart rate with increased metoprolol - will continue to monitor. 04/01/18 Continue ciprofloxacin 500mg BID and metronidazole 500md BID in conjunction with oral Diflucan for antimicrobial coverage. Clinically and biochemically tolerating this change well. Continue drain and wound vac care as per surgery. HR and BP stable. Can discontinue tele. 04/02/18 Continue ciprofloxacin 500mg BID and metronidazole 500md BID in conjunction with oral Diflucan for antimicrobial coverage. Continue drain and wound vac care as per surgery. NPO tonight for possible drain removal/wound vac closure tomorrow. Encourage activities and ambulation. 04/03/18 OP DAY: Delayed closure midline incision; left thoracentesis, 1000 ml light yellow fluid aspirated. Continue abx -- changed to IV route d/t possible surgical intervention today. CRP increased to 124 but WBC is normal at 7.9 and he is afebrile. Platelet count back to normal range today.
[2018-04-03] MEDS ORDERED: MetroNIDAZOLE PB 500 MG/100 ML BAG IV SCH (09:00)
[2018-04-03] MEDS: NS FLUSH BAG 500ml IV PRN (09:16)
--- NOTE | 2018-04-03 09:28 | Progress Note ---
DATE OF VISIT 04/02/2018 REASON FOR VISIT Covering surgical care for Dr. Gomez. SUBJECTIVE Arslan is doing well. When questioned, he denied abdominal pain. The nursing staff said that he had been wanting to lie in bed and watch movies more lately. OBJECTIVE VITAL SIGNS: Afebrile with stable vitals. His pulse remains in the low 100s. GENERAL: The patient is awake and alert. He is in no acute distress. He is lying in bed. ABDOMEN: Soft, minimally tender. His ostomy has good output. Bandages overlying his drain exit sites remain in place as does his wound VAC. LABORATORY White blood cell count 7.6. IMPRESSION 1. Status post exploratory laparotomies x2 with end colostomy/Mendoza's pouch formation due to previous colonic rupture and feculent peritonitis. 2. Left subphrenic abscess - ongoing but improved on last CT scan. His white count remains normal. PLAN 1. Continue oral antimicrobials. 2. N.p.o. at midnight. 3. Dr. Gomez is returning tomorrow and is going to determine if further intervention for the subphrenic abscess is needed and if he would like to perform delayed primary closure of his midline incision. SYLVAIN
--- NOTE | 2018-04-03 09:56 | Wound Care Progress Note ---
Wound Center Progress Note: Pt seen for wound follow up/vac dressing change. Pt is scheduled for OR 1630 for possible drain removal and closure of mid abdominal/chest incision. Wound vac dressing not changed at this time.
[2018-04-03] MEDS: PIPERACILLIN/TAZOBACTAM 3.375 GM in NS 100 ML IV SCH ×3 (10:36→22:06)
[2018-04-03] MEDS: SODIUM FERRIC GLUC. COMPLEX 125 MG in NS 100 ML IV SCH (12:02)
[2018-04-03] MEDS: SALINE FLUSH 10ml SYRINGE IVF PRN (15:44)
[2018-04-03] MEDS ORDERED: LR 1,000 ML IV SCH ×2 (17:45→19:28)
--- NOTE | 2018-04-03 17:57 | Anesthesia Preoperative Report ---
Anesthesia Preoperative Record - Date and Time Date: 04/03/18 Preoperative Diagnosis: toxic megacolon Proposed Procedure: left pleural effusion NPO Since Date: 04/02/18 NPO Since Time: 22:00 Allergies/Adverse Reactions: Allergies Allergy/AdvReac Type Severity Reaction Status Date / Time No Known Allergies Allergy Verified 02/20/18 14:54 - Vital Signs Vital Signs: Temperature 97.7 F 04/03/18 16:30 Pulse Rate 120 H 04/03/18 16:30 Respiratory Rate 18 04/03/18 16:30 Blood Pressure 110/72 04/03/18 16:30 Pulse Oximetry 96 04/03/18 16:30 Height and Weight: Height 1.75 m Weight 59.5 kg Body Mass Index 19.6 - Medications Inpatient Medications: Current Medications Acetaminophen (Tylenol 650 Mg/20.3 Ml Soln) 325 - 650 mg PO Q5H PRN PRN Reason: 4 Last Admin: 03/29/18 05:22 Dose: 650 mg Albuterol/Ipratropium (Duoneb) 3 ml AEROSOL RTQID PRN Last Admin: 03/08/18 19:24 Dose: 3 ml Enoxaparin Sodium (Lovenox) 40 mg SQ DAILY [facility] Last Admin: 04/02/18 08:16 Dose: 40 mg Fentanyl (Duragesic Patch) 12 mcg TD Q3D [facility] Last Admin: 04/03/18 09:01 Dose: 12 mcg Fentanyl Citrate (Duragesic Patch Removal) 1 removal TD Q3D [facility] Last Admin: 04/03/18 09:03 Dose: 1 removal Fluconazole (Diflucan 100 Mg Tablet) 200 mg PO DAILY [facility] Last Admin: 04/02/18 08:16 Dose: 200 mg Heparin Sodium (Beef Lung) (Heparin Flush) 20 unit IV PRN PRN Last Admin: 03/27/18 03:45 Dose: 20 unit Piperacillin Sod/Tazobactam (Sod 3.375 gm/ Sodium Chloride) 100 mls @ 200 mls/ hr IV Q6H [facility] Last Infusion: 04/03/18 16:14 Dose: Infused Lactated Ringer's (Lactated Ringers) 1,000 mls @ 50 mls/hr IV .Q20H [facility] Last Admin: 04/03/18 17:47 Dose: 50 mls/hr Lorazepam (Ativan Inj) 0.5 mg IVP Q4H PRN Last Admin: 03/10/18 09:58 Dose: 0.5 mg Metoclopramide HCl (Reglan) 10 mg IVP Q8H PRN Last Admin: 03/24/18 01:08 Dose: 10 mg Metoprolol Tartrate (Lopressor) 12.5 mg PO BIDWM [facility] Last Admin: 04/03/18 08:39 Dose: 12.5 mg Morphine Sulfate (Morphine Sulfate Inj) 1 - 4 mg IVP Q1H PRN PRN Reason: Pain Last Admin: 03/23/18 15:14 Dose: 4 mg Ondansetron HCl (Zofran) 4 mg IVP Q6H PRN PRN Reason: Nausea Last Admin: 03/20/18 15:22 Dose: 4 mg Pantoprazole Sodium (Protonix Tab) 40 mg PO ACB [facility] Last Admin: 04/03/18 06:34 Dose: 40 mg Sodium Chloride (Iv Flush) 10 - 80 ml IVF PRN PRN PRN Reason: Flushing Last Admin: 04/03/18 15:44 Dose: 40 ml Sodium Chloride (Normal Saline) 500 ml IV PRN PRN Last Admin: 04/03/18 09:16 Dose: 500 ml Trolamine Salicylate (Aspercreme) 1 applic TOP QID [facility] Last Admin: 04/03/18 16:31 Dose: Not Given Home Medications: Home Medications Medication Instructions Recorded Confirmed Type No known Home medications [No home 02/20/18 02/20/18 History meds] Is Patient on Beta Jackelin?: No - Medical History Respiratory: DENIES: Asthma, Bronchitis, Dyspnea, Orthopnea, Pulmonary Embolism, Pneumonia , Upper Respiratory Infection, Pulmonary Edema, Sleep Apnea, Tuberculosis, Other Cardiovascular: DENIES: Abnormal EKG, Angina, Arrhythmia, Congestive Heart Failure, Coronary Artery Disease, Heart Murmur, Hypertension, Hypotension, High Cholesterol, Myocardial Infarction, Rheumatic Fever, Valvular Heart Disease, Other Gastrointestional: Reports: Other (Perforated bowel) DENIES: Nausea or Vomiting Present Neuro/Musculoskeletal: Reports: Other (Autism) Denies: Back Problems, Cerebrovascular Accident, Depression, Headaches, Loss of Consciousness, Muscle Weakness, Neuromuscular Disorder, Paralysis, Paresthesia, Syncope, Seizures Renal/Endocrine: DENIES: Diabetes Mellitus Type 1, Diabetes Mellitus Type 2, Renal Failure, Dialysis, Thyroid Disease, Weight Loss, Weight Gain, Other Other History: DENIES: Anesthesia Reactions, Now, Blood Transfusions, Chemotherapy , Cancer, Hemophilia, Malignant Hyperthermia, Sickle Cell Disease, Other - Surgical History Cardiac Surgeries/Treatments: DENIES: Pacemaker Surgery/Treatment: DENIES: Dialysis Reproductive Surgery/Treatment: DENIES: Mastectomy Anesthesia Reactions: None Hx Family Anesthesia Reaction: No History of Motion Sickness: No - Social History Smoking Status: Never smoker Hx Chewing Tobacco Use: No Second Hand Exposure: No Substance Use Type: does not use Alcohol Intake Frequency: does not drink - Pertinent Findings Laboratory: CBC and BMP 04/03/18 04:11 04/03/18 04:11 BMP 04/03/18 04:11 Sodium 142 Potassium 3.8 Chloride 104 Carbon Dioxide 27 BUN 5.0 L Creatinine 0.6 L Glucose 95 Calcium 9.4 EKG: Sinus Rhythm - Physical Exam Respiratory Exam: Present: wheezing, bilateral breath sounds equal, decreased breath sounds-L Cardiovascular Exam: Present: regular rate and rhythm, no murmur - Airway Assessment Mallampati Score: II Overall Assessment: may be difficult intubation - ASA ASA Score: 2 - Plan Anesthesia: General TIVA - Discussion Discussion: Discussed risks/options/alternatives of anesthesia and questions answered. Patient consents. Nursing pain assessment noted. Present for Discussion: parent Attestation Statement: Prior to the delivery of any anesthetic medication, I examined the patient, developed the plan, obtained the patient's consent and discussed the risk and benefits of the procedure with the patient/guardian. - Additional Information Seen by Anesthesia: Yes
[2018-04-03] MEDS ORDERED: MIDAZOLAM 2mg/2ml INJECTION ONE (18:14)
[2018-04-03] MEDS ORDERED: PROPOFOL 500 MG/50 ML VIAL ONE (18:15)
[2018-04-03] MEDS ORDERED: NEOMYCIN/POLYMYXIN/BACITRACIN OINT PACKET TP ONE (18:47)
--- NOTE | 2018-04-03 18:52 | General Surgery Procedure Note ---
Date of Procedure: 04/03/18 Surgeon: Patricia Him Manager: Nadeem Manning APRN Postoperative Diagnosis: left pleural effusion,. post operative midline incisional wound Procedure: left thoracentesis, 1000 ml light yellow fluid aspirated. Delayed closure midline incision. Estimated Blood Loss: See Anesthesia Record.
--- NOTE | 2018-04-03 18:54 | Anesthesia Postoperative Note ---
- Date and Time Date: 04/03/18 Time: 18:54 - Status Patient Participated in Evaluation: Patient Participated in Person Vital Signs: Temperature 97.7 F 04/03/18 16:30 Pulse Rate 120 H 04/03/18 16:30 Respiratory Rate 18 04/03/18 16:30 Blood Pressure 110/72 04/03/18 16:30 Pulse Oximetry 96 04/03/18 16:30 Respiratory Function: Airway Patent Cardiovascular Function: Regular Pulse EKG: Sinus Tachycardia Mental Status: Alert and Oriented Pain Intensity: 0 Hydration: IV Infusing Nausea/Vomiting: None Complications During Recover: None Apparent - Follow-Up Instructions Instructions: Per Surgeon
--- NOTE | 2018-04-03 19:11 | Progress Note ---
DATE OF SERVICE 04/03/2018 FINDINGS Cosmo was seen earlier today. He was in good spirits. Denied abdominal pain. PHYSICAL EXAM VITAL SIGNS: Afebrile, normotensive. Vitals include temperature 97.7, pulse 120, respirations 18, blood pressure 110/72. HEENT: Normocephalic. Pupils are equally round and react to light and accommodation. CHEST: Clear to auscultation bilaterally. HEART: Regular rate and rhythm. Normal S1 and S2 without gallops, murmurs or clicks. ABDOMEN: Soft, nontender. Stool was present within colostomy. Drains have been removed. LABORATORY/RADIOGRAPHIC EVALUATION/REVIEW OF PATIENT'S CHART The patient had a CBC today and his hemoglobin is stable as 10.2. White count is stable at 7.9. CMP was obtained and found to be essentially within normal limits. I did review his prior CT scan of his abdomen and pelvis. The patient did have a small residual left-sided subdiaphragmatic abscess/fluid collection. He did have a moderate left pleural effusion resulting in a component of atelectasis of the left lung. ASSESSMENT 32-year-old gentleman status post exploratory laparotomies x 2 secondary to perforated colon with associated fecal peritonitis and development of multiple intraabdominal abscesses. Overall, patient doing well. PLAN Wound care team has stated that his prior midline incision has granulated in nicely throughout. There is no residual necrotic tissue present. I have recommended that we go ahead and proceed with delayed primary closure of his prior midline incision at this juncture in time. Given his moderate left pleural effusion, it was my recommendation that we also perform left thoracentesis. I did discuss with the patient's parents this evening what a left thoracentesis would entail and its associated risks which included but were not inclusive of hemopneumothorax. They understood and wished to proceed as stated above. SYLVAIN
[2018-04-03] MEDS ORDERED: FALL RISK - PHARMACY CONSULT MC ONE (19:37)
[2018-04-03] MEDS ORDERED: BUPIVACAINE 0.25%/EPI 1:200,000 30ml SDV INFIL ONE (20:11)
--- NOTE | 2018-04-03 20:34 | Operative Note ---
DATE OF SERVICE 04/03/2018 SURGEON Nuno Gomez MD PREOPERATIVE DIAGNOSES Left pleural effusion, abdominal surgical wound. POSTOPERATIVE DIAGNOSES Left pleural effusion, abdominal surgical wound. PROCEDURE Left thoracentesis, delayed primary closure of midline surgical wound 12 cm in length. ANESTHESIA TIVA/local. BRIEF HISTORY/INDICATIONS Cosmo is a 32-year-old male who has had the misfortune of developing a colonic perforation resulting in fecal peritonitis. The patient also had the misfortune of helping multiple intraabdominal abscesses following his initial laparotomy requiring additional laparotomy with drainage of multiple intraabdominal abscesses and placement of peritoneal drains. The patient has also developed a left pleural effusion that has failed to resolve on its own behalf. His prior midline incision was left open after the second laparotomy and has been managed utilizing negative wound pressure therapy. Patient presents today to undergo left thoracentesis and closure of his prior midline surgical wound. For completeness please refer to notes included in the patient' s chart. NARRATIVE OF PROCEDURE After informed consent was obtained the patient was brought to the operative suite and initially placed upon the table in a sitting fashion. The level of the right hemidiaphragm was ascertained by auscultation and percussion. A point parallel to this was then marked out percutaneously on the patient's left. This area was then prepped and draped in sterile fashion. 1% lidocaine was then injected just above the ascertained location of the left hemidiaphragm. A 22-gauge needle was introduced through the area of analgesia and subsequently into the left thorax with aspiration. Straw-colored fluid was obtained. A 5-mm incision was then made overlying the area of analgesia. A thoracentesis needle and catheter was advanced through the small incision up and over the underlying rib and into the left thorax with aspiration. Once again straw-colored fluid was obtained. Catheter was then advanced into the left thorax as the needle was being withdrawn. Next, 1100 mL of straw-colored fluid was aspirated from the left thorax without incident. Thoracentesis catheter was then removed and a sterile dressing was applied. The patient was then placed upon the table in a supine fashion. Abdomen was then prepped and draped in sterile fashion. 0.25% Marcaine was injected along the open portion of the wound extending from the umbilicus down to the suprapubic region. The wound cephalad to the umbilicus at this time has essentially granulated in and there were a few small remaining open portions where the granulation tissue had extended up to the surface of the adjacent epidermis. These areas were not closed primarily. An area that was 12 cm in length, however, was closed in a delayed fashion below the level of the umbilicus. Multiple mattress sutures of 2-0 Prolene were placed resulting in imbrication of the wound edges. The patient tolerated this procedure without difficulty. He is in the process of awakening from his anesthetic and will be sent back to the recovery room once deemed in stable condition. Postprocedure chest x-ray will be obtained upon his arrival. SYLVAIN
[2018-04-04] MEDS: PIPERACILLIN/TAZOBACTAM 3.375 GM in NS 100 ML IV SCH ×4 (04:09→20:20)
[2018-04-04] MEDS: PANTOPRAZOLE 40 MG TABLET PO SCH (06:18)
--- NOTE | 2018-04-04 08:23 | General Surgery Progress Note ---
Subjective Patient reports: tolerating a regular diet, voiding w/o difficulty, bowel movement, afebrile Narrative: He went to the OR yesterday, left thoracentesis with 1100 clear yellow fluid aspirated. Cultures pending. Midline incision sutured and dressings applied. Case management working on placement. Appointment for suture removal made for April 14 at 10:45 in Patricia's office. There are orders in radiology for outpatient CT on April 14, he is to arrive at 11:15. - Vital Signs Last Vital Signs Temp 98.7 F 04/04/18 04:00 Pulse 116 H 04/04/18 04:00 Resp 16 04/04/18 04:00 BP 117/72 04/04/18 04:00 Pulse Ox 95 04/04/18 04:00 - Laboratory Result Diagrams: 04/04/18 05:30 04/03/18 04:11 - Microbiogy Microbiology 04/03/18 18:25 Pleural Fluid Gram Stain - Final Not performed 04/03/18 18:25 Pleural Fluid Body Fluid Culture - Preliminary Culture Initiated - Results Pending - Abnormal Exam Cardiovascular: other (tachy at 110's, this has been chronic) - Normal Exam General: awake, alert Cardiovascular: regular rate Respiratory: no labored breathing Abdominal: soft, incision(s) (midline dressing is damp therefore removed, sutures in tact, incision swabbed with chlorhexidine prep sponge and new dry dressing applied.) Assessment and Plan (1) Postoperative intra-abdominal abscess Current Visit: Yes Status: Chronic Qualifiers: Encounter type: initial encounter Qualified Code(s): T81.4XXA - Infection following a procedure, initial encounter; K65.1 - Peritoneal abscess (2) Pleural effusion, left Current Visit: Yes Status: Acute (3) Colostomy in place Current Visit: Yes Status: Chronic (4) 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 Cultures pending. Midline incision sutured and dressings applied. Case management working on placement. Midline suture removal April 14 at 10:45 in Patricia's office. Outpatient CT on April 14, arrive at 11:15. He may have breakfast. ABX per Dr. Ac. CM working on discharge placement. Hospital Course Summary Disclaimer: The visit summary below is not to be considered part of the above Progress Note. Hospital Course: 02/20/18 Admit, CCU. Bowel rest - NPO. Cont IVF - 1/2 NS with Na of 144. Consult Dr. Gomez for mgt. Sx management with Protonix, morphine, Zofran. Cont IVF for tachycardia; sepsis. Repeat lactate. Cont Zosyn for bowel coverage. Follow BC results. Iron w/u in progress. Type & screen ordered. D/W with Dr. Stevens and RN. 02/22/18 Gastrografin enema 02/21 with copious stool resulting. However, still with stool in rectal vault. Deferring further management to surgery team, await recs. Cont Zosyn given bandemia, tachycardia and concern for toxic megacolon. 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 Clinically deteriorating. Going for surgery for perforation/free air. Near total colectomy performed. Became hypotensive, tachycardic with rates into 180s. Aggressively fluid resuscitated. 02/24/18 UOP, tachycardia improved. Cont abx. Initiate TPN. Monitoring for return of bowel fxn. 02/25/18 Given Kphos Transfused another 1U PRBCs. Stopped LR. Surgery to trial clamping NGT. Intermittently febrile- rectal Tylenol. 02/26/18 Did have fever overnight. Has tolerated NGT clamping. No O2 requirements. No N/V /CP. Hasn't been able to perform IS very well. 02/27/18 Remains on TPN, tolerating limited oral liquids earlier today however resultant emesis has required resumption of NG suction. Good output per ostomy; 2400 mL output reported during prior 24-hour period. Hemoglobin drifting down, ongoing hypokalemia-post being reassessed this afternoon. Potassium increased and TPN but may require supplemental boluses due to potassium lost in stool and emesis. Persistent tachycardia-may require additional blood transfusion. Remains on Zosyn for peritonitis; chest x-ray with pleural effusion but no evidence of pneumonia. May require repeat CT abdomen/pelvis to exclude intra-abdominal abscess. 02/28/18 Remains on TPN, electrolytes stable. Good urine output per ostomy but continues to have high volume output per NG. Output significantly higher than input, weight down, ongoing tachycardia--> 1 L fluid bolus tonight. Anticipate ongoing need for fluids to match fluid losses. CT abdomen/pelvis discussed with radiology this evening and subsequently with Dr. Hills; will review further with radiology tomorrow to determine if drainage can be performed of the subphrenic abscess percutaneously or if surgical drainage/washout will be needed due to presence of multiple smaller fluid collections suggestive of early abscesses. Dr. Hills notified patient 's parents of findings. Hemoglobin continues to drift down very slowly, may be slightly hemoconcentrated at present. Type and screen in a.m. Anticipating transfusion in the next 1-2 days. 03/01/18 OP Day - Exploratory laparotomy, drainage of multiple intraabdominal abscesses, fecal disimpaction, intraoperative flexible proctoscopy. Subdiaphragmatic abscess and left upper quadrant-discussed with radiology and message subsequently relayed to Dr. Hills regarding potential risk of percutaneous drainage. Patient tenably scheduled to return to the operating room later today. Several very small extensive gas in the pelvis without clear room enhancement to suggest abscess, may simply be postoperative change. Remains on TPN, electrolytes stable. Good urine output per ostomy but continues to have high volume output per NG. Output significantly higher than input, weight down, ongoing tachycardia--> 1 L fluid bolus this a.m. and continue normal saline at 100 mL per hour. 2 units PRBCs matched preoperatively; one being given prior to surgery for hemoglobin 7.4. 03/02/18 s/p ex lap with placement of drains by Dr. Hills. Febrile before surgery. WBC up post-op. Wound cx growing GPC, GNR, GPR. Continue Zosyn Remains on TPN, reduce K+. Good urine output. Output per NG down. Continued tachycardia. Continue IVF and treat pain. Output significantly higher than input, weight down, ongoing tachycardia--> 1 L fluid bolus this a.m. and continue normal saline at 100 mL per hour. Anticipate ongoing need for fluids to match fluid losses. 1 unit PRBCs given 03/01. Total of 4 units transfused Ferrlecit dose given 02/25, plan to repeat dose 03/04. Discussed with nursing who provide supplemental history; mother updated. Prognosis guarded. 03/03/18 s/p ex lap 03/01 with placement of drains by Dr. Hills. Afebrile and WBC down. Wound cx growing GPC, GNR, GPR. Continue Zosyn and fluconazole Continue TPN, K+ improved. Good urine output. Output per NG and ostomy down since 03/01 ex lap. Continued tachycardia. Continue IVF and treat pain. ? whether anxious. Trial of Ativan Anticipate ongoing need for fluids to match fluid losses. 1 unit PRBCs given 03/01. Total of 4 units transfused Ferrlecit dose given 02/25, plan to repeat dose 03/04. Discussed with nursing who provide supplemental history; mother updated. Prognosis guarded. 03/04/18 s/p ex lap 03/01 with placement of drains by Dr. Hills. Fever and WBC up slightly. Wound cx growing e coli, sensitive to Zosyn. Fluconazole. Check CXR Continue TPN, K+ improved. Good urine output. Output per NG and ostomy down since 03/01 ex lap. Continued tachycardia. Hold LR as patient with trace edema. Start fentanyl patch for pain. He got 28 mg iv morphine yesterday. Starting fentanyl at 12mcg d /t possible interaction with Fluconazole. 1 unit PRBCs given 03/01. Total of 4 units transfused Ferrlicit dose given 02/25, plan to repeat dose 03/04. Discussed with nursing who provide supplemental history. Encourage activity. Prognosis guarded 03/05/18 s/p ex lap 03/01 with placement of drains by Dr. Hills. Wound VAC. Fever. WBC down slightly. Wound cx growing e coli, sensitive to Zosyn. Fluconazole. Check CXR. Continue TPN, decrease Mg. Good urine output. Output per NG up yesterday. Continued tachycardia. Holding LR as patient with trace edema. Appears more comfortable with fentanyl patch for pain. Platelets trending up. Check inflammatory markers. If continued fever, consider repeating CT Encourage activity. 03/06/18 Temp elevations to 100.5 - 101.7. Persistent tachycardia in 130s. BP 100's. WBC with gradual trend down to 17.9 - was 25.0 on 03/02. Platelets trending up to 971 (was 407 on 03/02). Electrolytes and renal status stable - on TPN. Will continue with Zosyn and Diflucan for antimicrobial coverage. Continue with wound vac and drains. CT scan of ab/pelvis to exclude occult abscess formation. Encourage continued activities. 03/07/18 WBC with gradual trend down to 14.3 - was 17.9 on yesterday. Platelets elevated at 961 (was 971 yesterday). Hemoglobin persistently low at 7.6; with continued tachycardia will give 1 unit of pRBC. Electrolytes and renal status stable - on TPN. Will continue with Zosyn for antimicrobial coverage; Dr Gomez added Vancomycin and increased Diflucan to 200mg daily. Continue with wound vac and drains. CT scan of ab/pelvis showed possible new abscess formation in the suprapubic region and omental area. Encourage continued activities. 03/08/18 WBC with increase back to 17.1. HGB increased to 8.2 post transfusion yesterday. Pharm recommended changing Zosyn to Meropenem - did agree. Continue vancomycin and Diflucan. Will continue with TPN for nutritional support - NS bolus of 500cc to help with tachycardia. Continue with pain control. 03/09/18 Temp elevations continue. WBC with decrease to 15.6, but increased bands noted. Renal status and electrolytes stable. Continues of Meropenem, vancomycin, and Diflucan for coverage. Dr Gomez plan repeating CT scan with contrast (though NG) tomorrow to check for bowel function and further abscesses. TPN for nutritional and volume support. Continue with MS for pain, add Aspercreme for muscle discomfort. 03/10/18 Temp elevations continue. WBC 16.4. Renal status and electrolytes stable. Little change in overall status. CT ab/pelvis shown abscess with drain in place, however abscess has increased in size. Sx working to have drains flushed. Continues on Meropenem, vancomycin, and Diflucan for coverage. TPN for nutritional and volume support. Will give 500cc NS bolus to help improve BP. 03/11/18 Temp elevations continue. WBC trended down to 14. Renal status and electrolytes stable. Little change in overall status. CT ab/pelvis shown abscess with drain in place, however abscess has increased in size. Sx working to have drains flushed. Continues on Meropenem, vancomycin, and Diflucan for coverage. TPN for nutritional and volume support. Repeat 500cc NS bolus today and add metoprolol for tachycardia as BP allows. Continue pain control. 03/12/18 Temp elevations continue. WBC trended down to 12.7. Renal status and electrolytes stable. Little change in overall status. CT ab/pelvis shown abscess with drain in place, however abscess has increased in size per CT 03/10/18. Sx working to have drains flushed. Continues on Meropenem, vancomycin, and Diflucan for coverage. TPN for nutritional and volume support. Added q12hr metoprolol in attempt to control heart rate, only marginally working and could be titrated if blood pressure allows. Continue pain control. 03/13/18 WBC with trend down, but still with tachycardia and intermittent temp elevations. Continues on Meropenem, vancomycin, and Diflucan for coverage. TPN for nutritional and volume support. Continue pain control. 03/14/18 WBC with elevation to 13.4. CT showing decrease size of abscess. Continues on Meropenem, vancomycin, and Diflucan for coverage. TPN for nutritional and volume support. Electrolytes and renal status stable. Continue pain control. Continue activities as able. 03/15/18 WBC with stable at 13.7. Platelets with decrease to 594. Less temp elevations seen. Continues on Meropenem, vancomycin, and Diflucan for coverage. TPN for nutritional and volume support. Electrolytes and renal status stable. Dr Gomez trying NG clamping and clear liquids. Continue pain control. Continue activities as able. 03/16/18 WBC with decrease to 11.7. Platelets with decrease to 546. Less temp elevations seen. Continues on Meropenem, vancomycin, and Diflucan for coverage. TPN for nutritional and volume support. Electrolytes and renal status stable. NG removed; clear liquids. 03/17/18 WBC with decrease to 10.1. Platelets with decrease to 529. Less temp elevations seen. Evaluated by Dr Ac today - vancomycin stopped and changed meropenem to Zosyn and continued Diflucan. TPN for nutritional and volume support. Electrolytes and renal status stable. Advanced to regular diet but oral drive low. HGB variable, but trend down. Will give 1 unit pRBC due to continued tachycardia in post op patent. Continue pain control. Continue activities as able - walking in halls with nursing help. 03/18/2018 White blood cell count today is up mildly to 12.1. Bands are up to 7 from one yesterday. He has been afebrile over 24 hours. Hemoglobin improved to 9.5 up from 7.1 yesterday. He received 1 unit of blood yesterday. He does have mildly elevated phosphorus and magnesium. Discussed with pharmacy. The rate of his TPN will be decreased. Will recheck phosphorus and magnesium tomorrow. Repeat INR tomorrow. Repeat CBC and renal panel tomorrow. Advance diet as tolerated. Will try oral supplements. Continue ambulation with assist. The patient continues to have persistent tachycardia this hospital course, but rate is slowly improving. No real change with transfusion of 1 unit of blood. Recheck C-reactive protein tomorrow Discussed case with CCU nursing. We'll check a vitamin B-12 tomorrow regarding borderline low B-12 level Greater than 40 minutes of critical care time spent seeing and evaluating the patient in determining care plan. 03/19/2018 White blood cell count continues to increase and is 16.5 today. Bands are 6 down from 7 yesterday. Hemoglobin has improved to 10.9. Patient remains afebrile. C-reactive protein has decreased from 181 down to 75. We'll continue on fluconazole and Zosyn for intra-abdominal abscesses. Advance diet as tolerated. Continue TPN for now, he will receive a customized formula with no phosphorus and decreased magnesium and calcium. Continue ambulation with assist Recheck CBC with manual differential, renal panel, magnesium tomorrow. 03/20/2018 White blood cell count continues to increase and is 18.8 today from 16.8 yesterday. Bands are 1 down from 6 yesterday. Temperature currently is 99.9. Dr. Gomez has ordered CT abdomen with contrast. The patient is currently on day 4 of Zosyn. He has been on fluconazole since at least February 23. Meropenem was discontinued March 18. Continue TPN for now, he is on a customized formula. Continue ambulation with assist Recheck CBC with manual differential, renal panel, magnesium tomorrow. Discussed with the patient's nurse and family. 03/21/18 CT abdomen with contrast obtained yesterday and shows a decrease in size of the intra-abdominal abscesses with no new abscess formation. White count is essentially stable from yesterday. The patient remains afebrile. He continues on fluconazole which was started February 23 and Zosyn which was started March 17. Prior to being on Zosyn, he was on meropenem but this was discontinued March 18 He continues to have tachycardia, but urine output remains stable. Fluid boluses in the past have not improved tachycardia. He does not appear to be in pain or anxious at this time. He is on fentanyl patch for pain and has when necessary medication for pain and anxiety. Will check TSH and reflex T4. 03/22/18 Stable, TSH normal. Mcdermott catheter discontinued. Pain well-controlled; taking by mouth well. 03/23/18 Oral intake improving, has been on a regular diet for approximately 5 days now and is eating meals well. Will discuss tapering TPN off with surgery. Renal function, hemoglobin, and blood pressure all stable. Persistent tachycardia, patient tolerates well-does not respond to additional fluids and patient does not appear to be in pain. Continue fluconazole and Zosyn-antibiotics under the management of Dr. Ac. 03/24/18 Discontinuing TPN today; stable to transfer out of ICU. Otherwise stable. 03/25/18 Doing well, TPN discontinued yesterday. Blood sugars stable following discontinuation of TPN. Accu-Cheks DC'd. 03/26/18 Stable, no change in therapy. 03/27/[address] Ac - Continue Zosyn and fluconazole. He will need at least 2 weeks of antibiotics, but he might require more. I would recommend repeat CT in a couple weeks to make sure the abscesses are resolved before stopping antibiotics. Will change the fluconazole to po. WBC normal. Hgb 8.9. CRP increased to 112.6 but peaked at 182 earlier in the month. Ongoing tachycardia - cortisol level normal at 16. Trial low-dose beta eugene ( metoprolol 6.25 mg twice a day) to suppress tachycardia. 03/28/[address] doing well. Heart rate with slight decrease since starting metoprolol. Continue with Zosyn and fluconazole. Continue with wound vac and drains. Encourage ambulation to help strength. 03/29/19 Continue with Zosyn and fluconazole. Continue with wound vac and drains - anticipate repeat CT tomorrow. Will give IV Iron due to low iron levels - discussed with Pharm. Will have dose today, 03/31, and 04/03. 03/30/18 Continues to work well this therapy. Oral drive stable. CT showing unchanged abdominal and pelvic surgical drains with further decreased size of the left subdiaphragmatic fluid collection and essential resolution of the additional previously noted collections within the left paracolic gutter and peripancreatic region. Drain and wound vac care as per surgery. Dr. Hills will review report from CT today before pulling drains and deciding if midline incision can be closed. Continue with Zosyn and fluconazole for antimicrobial coverage. Increase metoprolol to 12.5mg BIDWM to help tachycardia. BP stable. 03/31/18 Clinically doing well. Lab stable. Strength and functional status improving. Dr Ac recommends changing from Zosyn to ciprofloxacin 500mg BID and metronidazole 500md BID in conjunction with oral Diflucan. Will change antibiotics and monitor clinical response off IV antibiotics. Continue drain and wound vac care as per surgery. Little change in heart rate with increased metoprolol - will continue to monitor. 04/01/18 Continue ciprofloxacin 500mg BID and metronidazole 500md BID in conjunction with oral Diflucan for antimicrobial coverage. Clinically and biochemically tolerating this change well. Continue drain and wound vac care as per surgery. HR and BP stable. Can discontinue tele. 04/02/18 Continue ciprofloxacin 500mg BID and metronidazole 500md BID in conjunction with oral Diflucan for antimicrobial coverage. Continue drain and wound vac care as per surgery. NPO tonight for possible drain removal/wound vac closure tomorrow. Encourage activities and ambulation. 04/03/18 OP DAY: Delayed closure midline incision; left thoracentesis, 1000 ml light yellow fluid aspirated. Continue abx -- changed to IV route d/t possible surgical intervention today. CRP increased to 124 but WBC is normal at 7.9 and he is afebrile. Platelet count back to normal range today.
--- NOTE | 2018-04-04 08:57 | XRay Report ---
Indication: post left thoracentesis PROCEDURE: XR chest post-procedure 1V: Encounter: Initial Comparison: March 15, 2018 Findings: Interval left thoracentesis with decrease in pleural fluid and no visible pneumothorax. Right PICC line remains in place. The prior nasogastric tube and surgical drains have been removed. Mild left basilar atelectasis remaining. Right lung is grossly clear. Heart size and mediastinal contours are within normal limits. Pulmonary vascularity is normal. Impression: No visible pneumothorax following left-sided thoracentesis. .
[2018-04-04] MEDS: FLUCONAZOLE 100 MG TABLET PO SCH (09:12)
[2018-04-04] MEDS: NS FLUSH BAG 500ml IV PRN (09:14)
[2018-04-04] MEDS: ENOXAPARIN 40 MG/0.4 ML INJECTION SQ SCH (09:16)
[2018-04-04] MEDS: ACETAMINOPHEN 650 MG/20.3 ML SOLUTION PO PRN (09:21)
--- NOTE | 2018-04-04 09:57 | Progress Note ---
- Date 04/04/18 Subjective: Arslan was seen after going on a long walk. He got sweaty and complained of soreness in his abdomen. His HR increased afterwards. When I saw him he was resting in bed getting ready to watch a movie. His mother said that he didn't feel like eating breakfast but did drink his chocolate milk. He's had good stool output. Objective Vital signs: Temperature 98.5 F 04/04/18 08:00 Pulse Rate 128 H 04/04/18 08:00 Respiratory Rate 04/04/18 08:00 Blood Pressure 118/67 04/04/18 08:00 Pulse Oximetry 98 04/04/18 08:00 Rhythm: Sinus Tachycardia Height/Weight/BMI: Height 1.75 m Weight 58.8 kg Body Mass Index 19.6 - Constitutional Present: no acute distress, well nourished, thin - Routine HEENT Exam Head: Present: normocephalic Eye: Present: PERRL. Absent: conjunctival icterus, scleral injection ENT: Present: mucous membranes moist - Routine Respiratory Exam Present: CTA bilaterally - Routine Cardiovascular Exam Present: RRR, S1, S2, tachycardia - Routine Abdominal Exam Comments: When I lifted up his gown to look at his abdomen he started to say "No, No, No" . Instead of a full exam I looked at the dressings, which were clean and dry. There was stool in his ostomy. He did not appear to be distended. Nadeem Manning saw him earlier this morning and assessed his abdomen. - Routine Extremities Exam Present: no edema - Routine Musculoskeletal Exam Musculoskeletal: Present: no clubbing or cyanosis - Routine Skin Exam Present: warm. Absent: dry (diaphoretic after his walk) - Routine Neurological Exam Present: alert - Routine Psychiatric Exam Present: normal affect (baseline) Results - Labs CBC & Chem 7: 04/04/18 05:30 04/04/18 10:49 Microbiology Results: Microbiology 04/03/18 18:25 Pleural Fluid Gram Stain - Final 04/03/18 18:25 Pleural Fluid Body Fluid Culture - Preliminary Culture Initiated - Results Pending 03/01/18 18:56 Abdomen, Left Upper Gram Stain - Final 03/01/18 18:56 Abdomen, Left Upper Surgical Culture - Final Escherichia coli Anaerobic Gram-Negative Bhanu Anaerobic Gram-Positive Cocci 02/23/18 20:15 Peripheral/Iv Start Gram Stain - Final Not performed 02/23/18 20:15 Peripheral/Iv Start Blood Culture - Final No Growth After 5 Days 02/23/18 20:05 Peripheral/Iv Start Gram Stain - Final Not performed 02/23/18 20:05 Peripheral/Iv Start Blood Culture - Final No Growth After 5 Days 02/20/18 20:07 Peripheral/Iv Start Blood Culture - Final No Growth After 5 Days Assessment and Plan (1) Megacolon Problem details: Toxic megacolon Current visit: Yes Status: Resolved (2) Perforation of colon Problem details: Perforation of the splenic flexure due to ischemic changes Current visit: Yes Status: Acute Assessment and Plan: Assessment 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 On meropenem 03/08-03/17, Vancomycin 03/07-03/17; Zosyn initiated on March 18. -04/03/18 Delayed closure midline incision; left thoracentesis, 1000 ml light yellow fluid aspirated. Tachycardia -persistent during the hospital course Severe constipation-resolved Severe sepsis -resolved Fever Severe iron deficiency anemia-received IV iron 02/25/2018 and 03/04/2018. He has had a total of 6 units of blood, he received his last unit 03/17/2018 Autism Dental problems Hypophosphatemia-resolved Hyperphosphatemia-on TPN Hypermagnesemia-on TPN-resolved Hypokalemia (Not POA) -resolved LLL atelectasis Acute kidney injury with oliguria-postop -resolved Hyperkalemia (Not POA) -resolved Thrombocytosis (Not POA) Left pleural effusion-status post thoracentesis of 1.1 L on 04/03/2018 Mild elevation of INR of 1.39 on 03/19/2018 Plan Continue IV abx per Dr. Ac -- she recommends IV abx while he is in the hospital except for fluconazole. Currently on Zosyn. WBC 7.3. Afebrile. Pleural fluid studies pending. BMP pending. Continue metoprolol, could consider increasing to 25 mg BID, but will need to monitor BP closely. Continue activity, therapy. 04/04/2018-11:10 AM-I examined the patient independently. I reviewed this chart , the patient history, and the CATALOGUE MAKER's/PA's documented findings as above. We discussed and formulated the assessment and plan as above with the additions below.-Dr. Peace The patient was seen this morning in his room accompanied by his mom. He underwent delayed wound closure of his abdominal incision yesterday and left thoracentesis of 1.1 L. His appetite was poor this morning. He did walk twice this morning and walked down to therapy and back. He was tachycardic and diaphoretic after his walk, but this has improved. He answered "yes" today to all questions. It's uncertain if these answers are accurate. His mom states she thinks he's had some abdominal discomfort today. On exam, he is alert and in no acute distress. Chest is clear to auscultation. Cardiovascular reveals a borderline tachycardic rate with irregular rhythm. Abdomen is soft with mild tenderness. He has soft brown stool in his ostomy bag. It appears that all of the abdominal drains have been removed. Skin is warm and mildly diaphoretic I did check his oxygen level which was 96% on room air and heart rate was 96 as well. White count today is 7.3, hemoglobin 10.4, platelets 214. Immature granulocytes 1.2, neutrophils 70. Basic metabolic profile is essentially normal. Glucose is 129. BUN 4. Creatinine 0.6 Pleural fluid from thoracentesis 04/03/2018 shows no organisms and rare neutrophils. Culture pending Impression and plan Sub-diaphragmatic [id number]-Vg. Jones's recommendations reviewed- continue IV Zosyn for now and oral fluconazole Sinus Tachycardia is slowly improving-no change and metoprolol for now Malnutrition-encourage by mouth intake Discussed with the patient's mother-she would like to talk with case management today-we'll notify case management Discussed with patient's nurse Continue current treatment. DVT Prophylaxis: SCD's, Lovenox GI Prophylaxis: Protonix Resuscitation Status: Full Code - Physician Narrative Narrative: Date: 04/03/18 Time: 0854 Hospital Course Summary Disclaimer: The visit summary below is not to be considered part of the above Progress Note. Hospital Course: 02/20/18 Admit, CCU. Bowel rest - NPO. Cont IVF - 1/2 NS with Na of 144. Consult Dr. Gomez for mgt. Sx management with Protonix, morphine, Zofran. Cont IVF for tachycardia; sepsis. Repeat lactate. Cont Zosyn for bowel coverage. Follow BC results. Iron w/u in progress. Type & screen ordered. D/W with Dr. Stevens and RN. 02/22/18 Gastrografin enema 02/21 with copious stool resulting. However, still with stool in rectal vault. Deferring further management to surgery team, await recs. Cont Zosyn given bandemia, tachycardia and concern for toxic megacolon. 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 Clinically deteriorating. Going for surgery for perforation/free air. Near total colectomy performed. Became hypotensive, tachycardic with rates into 180s. Aggressively fluid resuscitated. 02/24/18 UOP, tachycardia improved. Cont abx. Initiate TPN. Monitoring for return of bowel fxn. 02/25/18 Given Kphos Transfused another 1U PRBCs. Stopped LR. Surgery to trial clamping NGT. Intermittently febrile- rectal Tylenol. 02/26/18 Did have fever overnight. Has tolerated NGT clamping. No O2 requirements. No N/V /CP. Hasn't been able to perform IS very well. 02/27/18 Remains on TPN, tolerating limited oral liquids earlier today however resultant emesis has required resumption of NG suction. Good output per ostomy; 2400 mL output reported during prior 24-hour period. Hemoglobin drifting down, ongoing hypokalemia-post being reassessed this afternoon. Potassium increased and TPN but may require supplemental boluses due to potassium lost in stool and emesis. Persistent tachycardia-may require additional blood transfusion. Remains on Zosyn for peritonitis; chest x-ray with pleural effusion but no evidence of pneumonia. May require repeat CT abdomen/pelvis to exclude intra-abdominal abscess. 02/28/18 Remains on TPN, electrolytes stable. Good urine output per ostomy but continues to have high volume output per NG. Output significantly higher than input, weight down, ongoing tachycardia--> 1 L fluid bolus tonight. Anticipate ongoing need for fluids to match fluid losses. CT abdomen/pelvis discussed with radiology this evening and subsequently with Dr. Hills; will review further with radiology tomorrow to determine if drainage can be performed of the subphrenic abscess percutaneously or if surgical drainage/washout will be needed due to presence of multiple smaller fluid collections suggestive of early abscesses. Dr. Hills notified patient 's parents of findings. Hemoglobin continues to drift down very slowly, may be slightly hemoconcentrated at present. Type and screen in a.m. Anticipating transfusion in the next 1-2 days. 03/01/18 OP Day - Exploratory laparotomy, drainage of multiple intraabdominal abscesses, fecal disimpaction, intraoperative flexible proctoscopy. Subdiaphragmatic abscess and left upper quadrant-discussed with radiology and message subsequently relayed to Dr. Hills regarding potential risk of percutaneous drainage. Patient tenably scheduled to return to the operating room later today. Several very small extensive gas in the pelvis without clear room enhancement to suggest abscess, may simply be postoperative change. Remains on TPN, electrolytes stable. Good urine output per ostomy but continues to have high volume output per NG. Output significantly higher than input, weight down, ongoing tachycardia--> 1 L fluid bolus this a.m. and continue normal saline at 100 mL per hour. 2 units PRBCs matched preoperatively; one being given prior to surgery for hemoglobin 7.4. 03/02/18 s/p ex lap with placement of drains by Dr. Hills. Febrile before surgery. WBC up post-op. Wound cx growing GPC, GNR, GPR. Continue Zosyn Remains on TPN, reduce K+. Good urine output. Output per NG down. Continued tachycardia. Continue IVF and treat pain. Output significantly higher than input, weight down, ongoing tachycardia--> 1 L fluid bolus this a.m. and continue normal saline at 100 mL per hour. Anticipate ongoing need for fluids to match fluid losses. 1 unit PRBCs given 03/01. Total of 4 units transfused Ferrlecit dose given 02/25, plan to repeat dose 03/04. Discussed with nursing who provide supplemental history; mother updated. Prognosis guarded. 03/03/18 s/p ex lap 03/01 with placement of drains by Dr. Hills. Afebrile and WBC down. Wound cx growing GPC, GNR, GPR. Continue Zosyn and fluconazole Continue TPN, K+ improved. Good urine output. Output per NG and ostomy down since 03/01 ex lap. Continued tachycardia. Continue IVF and treat pain. ? whether anxious. Trial of Ativan Anticipate ongoing need for fluids to match fluid losses. 1 unit PRBCs given 03/01. Total of 4 units transfused Ferrlecit dose given 02/25, plan to repeat dose 03/04. Discussed with nursing who provide supplemental history; mother updated. Prognosis guarded. 03/04/18 s/p ex lap 03/01 with placement of drains by Dr. Hills. Fever and WBC up slightly. Wound cx growing e coli, sensitive to Zosyn. Fluconazole. Check CXR Continue TPN, K+ improved. Good urine output. Output per NG and ostomy down since 03/01 ex lap. Continued tachycardia. Hold LR as patient with trace edema. Start fentanyl patch for pain. He got 28 mg iv morphine yesterday. Starting fentanyl at 12mcg d /t possible interaction with Fluconazole. 1 unit PRBCs given 03/01. Total of 4 units transfused Ferrlicit dose given 02/25, plan to repeat dose 03/04. Discussed with nursing who provide supplemental history. Encourage activity. Prognosis guarded 03/05/18 s/p ex lap 03/01 with placement of drains by Dr. Hills. Wound VAC. Fever. WBC down slightly. Wound cx growing e coli, sensitive to Zosyn. Fluconazole. Check CXR. Continue TPN, decrease Mg. Good urine output. Output per NG up yesterday. Continued tachycardia. Holding LR as patient with trace edema. Appears more comfortable with fentanyl patch for pain. Platelets trending up. Check inflammatory markers. If continued fever, consider repeating CT Encourage activity. 03/06/18 Temp elevations to 100.5 - 101.7. Persistent tachycardia in 130s. BP 100's. WBC with gradual trend down to 17.9 - was 25.0 on 03/02. Platelets trending up to 971 (was 407 on 03/02). Electrolytes and renal status stable - on TPN. Will continue with Zosyn and Diflucan for antimicrobial coverage. Continue with wound vac and drains. CT scan of ab/pelvis to exclude occult abscess formation. Encourage continued activities. 03/07/18 WBC with gradual trend down to 14.3 - was 17.9 on yesterday. Platelets elevated at 961 (was 971 yesterday). Hemoglobin persistently low at 7.6; with continued tachycardia will give 1 unit of pRBC. Electrolytes and renal status stable - on TPN. Will continue with Zosyn for antimicrobial coverage; Dr Gomez added Vancomycin and increased Diflucan to 200mg daily. Continue with wound vac and drains. CT scan of ab/pelvis showed possible new abscess formation in the suprapubic region and omental area. Encourage continued activities. 03/08/18 WBC with increase back to 17.1. HGB increased to 8.2 post transfusion yesterday. Pharm recommended changing Zosyn to Meropenem - did agree. Continue vancomycin and Diflucan. Will continue with TPN for nutritional support - NS bolus of 500cc to help with tachycardia. Continue with pain control. 03/09/18 Temp elevations continue. WBC with decrease to 15.6, but increased bands noted. Renal status and electrolytes stable. Continues of Meropenem, vancomycin, and Diflucan for coverage. Dr Gomez plan repeating CT scan with contrast (though NG) tomorrow to check for bowel function and further abscesses. TPN for nutritional and volume support. Continue with MS for pain, add Aspercreme for muscle discomfort. 03/10/18 Temp elevations continue. WBC 16.4. Renal status and electrolytes stable. Little change in overall status. CT ab/pelvis shown abscess with drain in place, however abscess has increased in size. Sx working to have drains flushed. Continues on Meropenem, vancomycin, and Diflucan for coverage. TPN for nutritional and volume support. Will give 500cc NS bolus to help improve BP. 03/11/18 Temp elevations continue. WBC trended down to 14. Renal status and electrolytes stable. Little change in overall status. CT ab/pelvis shown abscess with drain in place, however abscess has increased in size. Sx working to have drains flushed. Continues on Meropenem, vancomycin, and Diflucan for coverage. TPN for nutritional and volume support. Repeat 500cc NS bolus today and add metoprolol for tachycardia as BP allows. Continue pain control. 03/12/18 Temp elevations continue. WBC trended down to 12.7. Renal status and electrolytes stable. Little change in overall status. CT ab/pelvis shown abscess with drain in place, however abscess has increased in size per CT 03/10/18. Sx working to have drains flushed. Continues on Meropenem, vancomycin, and Diflucan for coverage. TPN for nutritional and volume support. Added q12hr metoprolol in attempt to control heart rate, only marginally working and could be titrated if blood pressure allows. Continue pain control. 03/13/18 WBC with trend down, but still with tachycardia and intermittent temp elevations. Continues on Meropenem, vancomycin, and Diflucan for coverage. TPN for nutritional and volume support. Continue pain control. 03/14/18 WBC with elevation to 13.4. CT showing decrease size of abscess. Continues on Meropenem, vancomycin, and Diflucan for coverage. TPN for nutritional and volume support. Electrolytes and renal status stable. Continue pain control. Continue activities as able. 03/15/18 WBC with stable at 13.7. Platelets with decrease to 594. Less temp elevations seen. Continues on Meropenem, vancomycin, and Diflucan for coverage. TPN for nutritional and volume support. Electrolytes and renal status stable. Dr Gomez trying NG clamping and clear liquids. Continue pain control. Continue activities as able. 03/16/18 WBC with decrease to 11.7. Platelets with decrease to 546. Less temp elevations seen. Continues on Meropenem, vancomycin, and Diflucan for coverage. TPN for nutritional and volume support. Electrolytes and renal status stable. NG removed; clear liquids. 03/17/18 WBC with decrease to 10.1. Platelets with decrease to 529. Less temp elevations seen. Evaluated by Dr Ac today - vancomycin stopped and changed meropenem to Zosyn and continued Diflucan. TPN for nutritional and volume support. Electrolytes and renal status stable. Advanced to regular diet but oral drive low. HGB variable, but trend down. Will give 1 unit pRBC due to continued tachycardia in post op patent. Continue pain control. Continue activities as able - walking in halls with nursing help. 03/18/2018 White blood cell count today is up mildly to 12.1. Bands are up to 7 from one yesterday. He has been afebrile over 24 hours. Hemoglobin improved to 9.5 up from 7.1 yesterday. He received 1 unit of blood yesterday. He does have mildly elevated phosphorus and magnesium. Discussed with pharmacy. The rate of his TPN will be decreased. Will recheck phosphorus and magnesium tomorrow. Repeat INR tomorrow. Repeat CBC and renal panel tomorrow. Advance diet as tolerated. Will try oral supplements. Continue ambulation with assist. The patient continues to have persistent tachycardia this hospital course, but rate is slowly improving. No real change with transfusion of 1 unit of blood. Recheck C-reactive protein tomorrow Discussed case with CCU nursing. We'll check a vitamin B-12 tomorrow regarding borderline low B-12 level Greater than 40 minutes of critical care time spent seeing and evaluating the patient in determining care plan. 03/19/2018 White blood cell count continues to increase and is 16.5 today. Bands are 6 down from 7 yesterday. Hemoglobin has improved to 10.9. Patient remains afebrile. C-reactive protein has decreased from 181 down to 75. We'll continue on fluconazole and Zosyn for intra-abdominal abscesses. Advance diet as tolerated. Continue TPN for now, he will receive a customized formula with no phosphorus and decreased magnesium and calcium. Continue ambulation with assist Recheck CBC with manual differential, renal panel, magnesium tomorrow. 03/20/2018 White blood cell count continues to increase and is 18.8 today from 16.8 yesterday. Bands are 1 down from 6 yesterday. Temperature currently is 99.9. Dr. Gomez has ordered CT abdomen with contrast. The patient is currently on day 4 of Zosyn. He has been on fluconazole since at least February 23. Meropenem was discontinued March 18. Continue TPN for now, he is on a customized formula. Continue ambulation with assist Recheck CBC with manual differential, renal panel, magnesium tomorrow. Discussed with the patient's nurse and family. 03/21/18 CT abdomen with contrast obtained yesterday and shows a decrease in size of the intra-abdominal abscesses with no new abscess formation. White count is essentially stable from yesterday. The patient remains afebrile. He continues on fluconazole which was started February 23 and Zosyn which was started March 17. Prior to being on Zosyn, he was on meropenem but this was discontinued March 18 He continues to have tachycardia, but urine output remains stable. Fluid boluses in the past have not improved tachycardia. He does not appear to be in pain or anxious at this time. He is on fentanyl patch for pain and has when necessary medication for pain and anxiety. Will check TSH and reflex T4. 03/22/18 Stable, TSH normal. Mcdermott catheter discontinued. Pain well-controlled; taking by mouth well. 03/23/18 Oral intake improving, has been on a regular diet for approximately 5 days now and is eating meals well. Will discuss tapering TPN off with surgery. Renal function, hemoglobin, and blood pressure all stable. Persistent tachycardia, patient tolerates well-does not respond to additional fluids and patient does not appear to be in pain. Continue fluconazole and Zosyn-antibiotics under the management of Dr. Ac. 03/24/18 Discontinuing TPN today; stable to transfer out of ICU. Otherwise stable. 03/25/18 Doing well, TPN discontinued yesterday. Blood sugars stable following discontinuation of TPN. Accu-Cheks DC'd. 03/26/18 Stable, no change in therapy. 03/27/[address] Ac - Continue Zosyn and fluconazole. He will need at least 2 weeks of antibiotics, but he might require more. I would recommend repeat CT in a couple weeks to make sure the abscesses are resolved before stopping antibiotics. Will change the fluconazole to po. WBC normal. Hgb 8.9. CRP increased to 112.6 but peaked at 182 earlier in the month. Ongoing tachycardia - cortisol level normal at 16. Trial low-dose beta eugene ( metoprolol 6.25 mg twice a day) to suppress tachycardia. 03/28/[address] doing well. Heart rate with slight decrease since starting metoprolol. Continue with Zosyn and fluconazole. Continue with wound vac and drains. Encourage ambulation to help strength. 03/29/19 Continue with Zosyn and fluconazole. Continue with wound vac and drains - anticipate repeat CT tomorrow. Will give IV Iron due to low iron levels - discussed with Pharm. Will have dose today, 03/31, and 04/03. 03/30/18 Continues to work well this therapy. Oral drive stable. CT showing unchanged abdominal and pelvic surgical drains with further decreased size of the left subdiaphragmatic fluid collection and essential resolution of the additional previously noted collections within the left paracolic gutter and peripancreatic region. Drain and wound vac care as per surgery. Dr. Hills will review report from CT today before pulling drains and deciding if midline incision can be closed. Continue with Zosyn and fluconazole for antimicrobial coverage. Increase metoprolol to 12.5mg BIDWM to help tachycardia. BP stable. 03/31/18 Clinically doing well. Lab stable. Strength and functional status improving. Dr Ac recommends changing from Zosyn to ciprofloxacin 500mg BID and metronidazole 500md BID in conjunction with oral Diflucan. Will change antibiotics and monitor clinical response off IV antibiotics. Continue drain and wound vac care as per surgery. Little change in heart rate with increased metoprolol - will continue to monitor. 04/01/18 Continue ciprofloxacin 500mg BID and metronidazole 500md BID in conjunction with oral Diflucan for antimicrobial coverage. Clinically and biochemically tolerating this change well. Continue drain and wound vac care as per surgery. HR and BP stable. Can discontinue tele. 04/02/18 Continue ciprofloxacin 500mg BID and metronidazole 500md BID in conjunction with oral Diflucan for antimicrobial coverage. Continue drain and wound vac care as per surgery. NPO tonight for possible drain removal/wound vac closure tomorrow. Encourage activities and ambulation. 04/03/18 OP DAY: Delayed closure midline incision; left thoracentesis, 1000 ml light yellow fluid aspirated. Continue abx -- changed to IV route d/t possible surgical intervention today. CRP increased to 124 but WBC is normal at 7.9 and he is afebrile. Platelet count back to normal range today. 04/04/18 Continue IV abx per Dr. Ac -- she recommends IV abx while he is in the hospital except for fluconazole. Currently on Zosyn. WBC 7.3. Afebrile. Pleural fluid studies pending.
[2018-04-04] MEDS ORDERED: ALTEPLASE (Cathflo*) 2mg INJECTION IV ONE (12:58)
--- NOTE | 2018-04-04 13:20 | Wound Care Progress Note ---
Wound Center Progress Note: Pt seen for wound/ostomy follow up. Pt resting in bed, mother at bedside. Pt states, "will you leave now?" Mother reports pt states his abdomen in a little sore. Pt had incision on lower abdomen closed, wound vac dc'ed. Mother requests to watch the next ostomy pouching change. Informed nurse that mother should change the colostomy bag herself with supervision from nurse so she feels comfortable doing this at home. Wound and ostomy not visualized at this time. Nursing staff reports they will have mother change ostomy appliance this afternoon.
--- NOTE | 2018-04-04 20:36 | Progress Note ---
DATE OF SERVICE 04/04/2018 FINDINGS Cosmo was seen this evening on rounds. He was in good spirits. Denied abdominal pain. PHYSICAL EXAM VITAL SIGNS: Afebrile, normotensive. ABDOMEN: Soft, nontender. Stool was present within colostomy. ASSESSMENT 32-year-old male status post exploratory laparotomy 2 secondary to intraabdominal abscesses and colonic perforation. Overall, patient doing well. PLAN Will discuss with hospitalist. I do believe the patient could be discharged to a nearby senior care facility and continue with oral antibiotics on an outpatient basis. Plan on followup CT scan in a couple of weeks for followup of fluid collections. I did review recent CT scan and discussed with radiologist. He felt that the subdiaphragmatic abscess for the most part had resolved at this point in time as well. SYLVAIN
[2018-04-05] MEDS: SALINE FLUSH 10ml SYRINGE IVF PRN (03:11)
[2018-04-05] MEDS: PIPERACILLIN/TAZOBACTAM 3.375 GM in NS 100 ML IV SCH ×2 (03:11→08:50)
[2018-04-05] MEDS: PANTOPRAZOLE 40 MG TABLET PO SCH (05:49)
[2018-04-05] MEDS: ENOXAPARIN 40 MG/0.4 ML INJECTION SQ SCH (08:49)
[2018-04-05] MEDS: FLUCONAZOLE 100 MG TABLET PO SCH (08:50)
--- NOTE | 2018-04-05 08:56 | General Surgery Progress Note ---
Subjective Patient reports: tolerating a regular diet, voiding w/o difficulty (but probably leaking or dribbling urine onto the midline abd dressing), bowel movement (brown stool in colostomy bag), afebrile - Vital Signs Last Vital Signs Temp 97.9 F 04/05/18 07:41 Pulse 107 H 04/05/18 07:41 Resp 18 04/05/18 07:41 BP 113/72 04/05/18 07:41 Pulse Ox 95 04/05/18 07:41 - Laboratory Result Diagrams: 04/05/18 04:15 04/05/18 04:15 - Microbiogy Microbiology 04/03/18 18:25 Pleural Fluid Fungal Culture and Stain - Preliminary 04/03/18 18:25 Pleural Fluid Gram Stain - Final 04/03/18 18:25 Pleural Fluid Body Fluid Culture - Preliminary No Growth After 2 Days - Normal Exam General: awake, alert Cardiovascular: regular rate Respiratory: no labored breathing Abdominal: BS normo active x4, incision(s) (gauze saturated with what seems to be urine, this is removed, area cleansed with Clorhexidine and dry gauze applied ) Assessment and Plan (1) Postoperative intra-abdominal abscess Current Visit: Yes Status: Chronic Qualifiers: Encounter type: initial encounter Qualified Code(s): T81.4XXA - Infection following a procedure, initial encounter; K65.1 - Peritoneal abscess (2) Pleural effusion, left Current Visit: Yes Status: Acute (3) Colostomy in place Current Visit: Yes Status: Chronic (4) 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 Appointment in Patricia's office morning of April 14 for suture removal. Encouraged staff to change the midline dressing frequently when it gets wet. Upon discharge we can leave incision open to air. Hospital Course Summary Disclaimer: The visit summary below is not to be considered part of the above Progress Note. Hospital Course: 02/20/18 Admit, CCU. Bowel rest - NPO. Cont IVF - 1/2 NS with Na of 144. Consult Dr. Gomez for mgt. Sx management with Protonix, morphine, Zofran. Cont IVF for tachycardia; sepsis. Repeat lactate. Cont Zosyn for bowel coverage. Follow BC results. Iron w/u in progress. Type & screen ordered. D/W with Dr. Stevens and RN. 02/22/18 Gastrografin enema 02/21 with copious stool resulting. However, still with stool in rectal vault. Deferring further management to surgery team, await recs. Cont Zosyn given bandemia, tachycardia and concern for toxic megacolon. 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 Clinically deteriorating. Going for surgery for perforation/free air. Near total colectomy performed. Became hypotensive, tachycardic with rates into 180s. Aggressively fluid resuscitated. 02/24/18 UOP, tachycardia improved. Cont abx. Initiate TPN. Monitoring for return of bowel fxn. 02/25/18 Given Kphos Transfused another 1U PRBCs. Stopped LR. Surgery to trial clamping NGT. Intermittently febrile- rectal Tylenol. 02/26/18 Did have fever overnight. Has tolerated NGT clamping. No O2 requirements. No N/V /CP. Hasn't been able to perform IS very well. 02/27/18 Remains on TPN, tolerating limited oral liquids earlier today however resultant emesis has required resumption of NG suction. Good output per ostomy; 2400 mL output reported during prior 24-hour period. Hemoglobin drifting down, ongoing hypokalemia-post being reassessed this afternoon. Potassium increased and TPN but may require supplemental boluses due to potassium lost in stool and emesis. Persistent tachycardia-may require additional blood transfusion. Remains on Zosyn for peritonitis; chest x-ray with pleural effusion but no evidence of pneumonia. May require repeat CT abdomen/pelvis to exclude intra-abdominal abscess. 02/28/18 Remains on TPN, electrolytes stable. Good urine output per ostomy but continues to have high volume output per NG. Output significantly higher than input, weight down, ongoing tachycardia--> 1 L fluid bolus tonight. Anticipate ongoing need for fluids to match fluid losses. CT abdomen/pelvis discussed with radiology this evening and subsequently with Dr. Hills; will review further with radiology tomorrow to determine if drainage can be performed of the subphrenic abscess percutaneously or if surgical drainage/washout will be needed due to presence of multiple smaller fluid collections suggestive of early abscesses. Dr. Hills notified patient 's parents of findings. Hemoglobin continues to drift down very slowly, may be slightly hemoconcentrated at present. Type and screen in a.m. Anticipating transfusion in the next 1-2 days. 03/01/18 OP Day - Exploratory laparotomy, drainage of multiple intraabdominal abscesses, fecal disimpaction, intraoperative flexible proctoscopy. Subdiaphragmatic abscess and left upper quadrant-discussed with radiology and message subsequently relayed to Dr. Hills regarding potential risk of percutaneous drainage. Patient tenably scheduled to return to the operating room later today. Several very small extensive gas in the pelvis without clear room enhancement to suggest abscess, may simply be postoperative change. Remains on TPN, electrolytes stable. Good urine output per ostomy but continues to have high volume output per NG. Output significantly higher than input, weight down, ongoing tachycardia--> 1 L fluid bolus this a.m. and continue normal saline at 100 mL per hour. 2 units PRBCs matched preoperatively; one being given prior to surgery for hemoglobin 7.4. 03/02/18 s/p ex lap with placement of drains by Dr. Hills. Febrile before surgery. WBC up post-op. Wound cx growing GPC, GNR, GPR. Continue Zosyn Remains on TPN, reduce K+. Good urine output. Output per NG down. Continued tachycardia. Continue IVF and treat pain. Output significantly higher than input, weight down, ongoing tachycardia--> 1 L fluid bolus this a.m. and continue normal saline at 100 mL per hour. Anticipate ongoing need for fluids to match fluid losses. 1 unit PRBCs given 03/01. Total of 4 units transfused Ferrlecit dose given 02/25, plan to repeat dose 03/04. Discussed with nursing who provide supplemental history; mother updated. Prognosis guarded. 03/03/18 s/p ex lap 03/01 with placement of drains by Dr. Hills. Afebrile and WBC down. Wound cx growing GPC, GNR, GPR. Continue Zosyn and fluconazole Continue TPN, K+ improved. Good urine output. Output per NG and ostomy down since 03/01 ex lap. Continued tachycardia. Continue IVF and treat pain. ? whether anxious. Trial of Ativan Anticipate ongoing need for fluids to match fluid losses. 1 unit PRBCs given 03/01. Total of 4 units transfused Ferrlecit dose given 02/25, plan to repeat dose 03/04. Discussed with nursing who provide supplemental history; mother updated. Prognosis guarded. 03/04/18 s/p ex lap 03/01 with placement of drains by Dr. Hills. Fever and WBC up slightly. Wound cx growing e coli, sensitive to Zosyn. Fluconazole. Check CXR Continue TPN, K+ improved. Good urine output. Output per NG and ostomy down since 03/01 ex lap. Continued tachycardia. Hold LR as patient with trace edema. Start fentanyl patch for pain. He got 28 mg iv morphine yesterday. Starting fentanyl at 12mcg d /t possible interaction with Fluconazole. 1 unit PRBCs given 03/01. Total of 4 units transfused Ferrlicit dose given 02/25, plan to repeat dose 03/04. Discussed with nursing who provide supplemental history. Encourage activity. Prognosis guarded 03/05/18 s/p ex lap 03/01 with placement of drains by Dr. Hills. Wound VAC. Fever. WBC down slightly. Wound cx growing e coli, sensitive to Zosyn. Fluconazole. Check CXR. Continue TPN, decrease Mg. Good urine output. Output per NG up yesterday. Continued tachycardia. Holding LR as patient with trace edema. Appears more comfortable with fentanyl patch for pain. Platelets trending up. Check inflammatory markers. If continued fever, consider repeating CT Encourage activity. 03/06/18 Temp elevations to 100.5 - 101.7. Persistent tachycardia in 130s. BP 100's. WBC with gradual trend down to 17.9 - was 25.0 on 03/02. Platelets trending up to 971 (was 407 on 03/02). Electrolytes and renal status stable - on TPN. Will continue with Zosyn and Diflucan for antimicrobial coverage. Continue with wound vac and drains. CT scan of ab/pelvis to exclude occult abscess formation. Encourage continued activities. 03/07/18 WBC with gradual trend down to 14.3 - was 17.9 on yesterday. Platelets elevated at 961 (was 971 yesterday). Hemoglobin persistently low at 7.6; with continued tachycardia will give 1 unit of pRBC. Electrolytes and renal status stable - on TPN. Will continue with Zosyn for antimicrobial coverage; Dr Gomez added Vancomycin and increased Diflucan to 200mg daily. Continue with wound vac and drains. CT scan of ab/pelvis showed possible new abscess formation in the suprapubic region and omental area. Encourage continued activities. 03/08/18 WBC with increase back to 17.1. HGB increased to 8.2 post transfusion yesterday. Pharm recommended changing Zosyn to Meropenem - did agree. Continue vancomycin and Diflucan. Will continue with TPN for nutritional support - NS bolus of 500cc to help with tachycardia. Continue with pain control. 03/09/18 Temp elevations continue. WBC with decrease to 15.6, but increased bands noted. Renal status and electrolytes stable. Continues of Meropenem, vancomycin, and Diflucan for coverage. Dr Gomez plan repeating CT scan with contrast (though NG) tomorrow to check for bowel function and further abscesses. TPN for nutritional and volume support. Continue with MS for pain, add Aspercreme for muscle discomfort. 03/10/18 Temp elevations continue. WBC 16.4. Renal status and electrolytes stable. Little change in overall status. CT ab/pelvis shown abscess with drain in place, however abscess has increased in size. Sx working to have drains flushed. Continues on Meropenem, vancomycin, and Diflucan for coverage. TPN for nutritional and volume support. Will give 500cc NS bolus to help improve BP. 03/11/18 Temp elevations continue. WBC trended down to 14. Renal status and electrolytes stable. Little change in overall status. CT ab/pelvis shown abscess with drain in place, however abscess has increased in size. Sx working to have drains flushed. Continues on Meropenem, vancomycin, and Diflucan for coverage. TPN for nutritional and volume support. Repeat 500cc NS bolus today and add metoprolol for tachycardia as BP allows. Continue pain control. 03/12/18 Temp elevations continue. WBC trended down to 12.7. Renal status and electrolytes stable. Little change in overall status. CT ab/pelvis shown abscess with drain in place, however abscess has increased in size per CT 03/10/18. Sx working to have drains flushed. Continues on Meropenem, vancomycin, and Diflucan for coverage. TPN for nutritional and volume support. Added q12hr metoprolol in attempt to control heart rate, only marginally working and could be titrated if blood pressure allows. Continue pain control. 03/13/18 WBC with trend down, but still with tachycardia and intermittent temp elevations. Continues on Meropenem, vancomycin, and Diflucan for coverage. TPN for nutritional and volume support. Continue pain control. 03/14/18 WBC with elevation to 13.4. CT showing decrease size of abscess. Continues on Meropenem, vancomycin, and Diflucan for coverage. TPN for nutritional and volume support. Electrolytes and renal status stable. Continue pain control. Continue activities as able. 03/15/18 WBC with stable at 13.7. Platelets with decrease to 594. Less temp elevations seen. Continues on Meropenem, vancomycin, and Diflucan for coverage. TPN for nutritional and volume support. Electrolytes and renal status stable. Dr Gomez trying NG clamping and clear liquids. Continue pain control. Continue activities as able. 03/16/18 WBC with decrease to 11.7. Platelets with decrease to 546. Less temp elevations seen. Continues on Meropenem, vancomycin, and Diflucan for coverage. TPN for nutritional and volume support. Electrolytes and renal status stable. NG removed; clear liquids. 03/17/18 WBC with decrease to 10.1. Platelets with decrease to 529. Less temp elevations seen. Evaluated by Dr Ac today - vancomycin stopped and changed meropenem to Zosyn and continued Diflucan. TPN for nutritional and volume support. Electrolytes and renal status stable. Advanced to regular diet but oral drive low. HGB variable, but trend down. Will give 1 unit pRBC due to continued tachycardia in post op patent. Continue pain control. Continue activities as able - walking in halls with nursing help. 03/18/2018 White blood cell count today is up mildly to 12.1. Bands are up to 7 from one yesterday. He has been afebrile over 24 hours. Hemoglobin improved to 9.5 up from 7.1 yesterday. He received 1 unit of blood yesterday. He does have mildly elevated phosphorus and magnesium. Discussed with pharmacy. The rate of his TPN will be decreased. Will recheck phosphorus and magnesium tomorrow. Repeat INR tomorrow. Repeat CBC and renal panel tomorrow. Advance diet as tolerated. Will try oral supplements. Continue ambulation with assist. The patient continues to have persistent tachycardia this hospital course, but rate is slowly improving. No real change with transfusion of 1 unit of blood. Recheck C-reactive protein tomorrow Discussed case with CCU nursing. We'll check a vitamin B-12 tomorrow regarding borderline low B-12 level Greater than 40 minutes of critical care time spent seeing and evaluating the patient in determining care plan. 03/19/2018 White blood cell count continues to increase and is 16.5 today. Bands are 6 down from 7 yesterday. Hemoglobin has improved to 10.9. Patient remains afebrile. C-reactive protein has decreased from 181 down to 75. We'll continue on fluconazole and Zosyn for intra-abdominal abscesses. Advance diet as tolerated. Continue TPN for now, he will receive a customized formula with no phosphorus and decreased magnesium and calcium. Continue ambulation with assist Recheck CBC with manual differential, renal panel, magnesium tomorrow. 03/20/2018 White blood cell count continues to increase and is 18.8 today from 16.8 yesterday. Bands are 1 down from 6 yesterday. Temperature currently is 99.9. Dr. Gomez has ordered CT abdomen with contrast. The patient is currently on day 4 of Zosyn. He has been on fluconazole since at least February 23. Meropenem was discontinued March 18. Continue TPN for now, he is on a customized formula. Continue ambulation with assist Recheck CBC with manual differential, renal panel, magnesium tomorrow. Discussed with the patient's nurse and family. 03/21/18 CT abdomen with contrast obtained yesterday and shows a decrease in size of the intra-abdominal abscesses with no new abscess formation. White count is essentially stable from yesterday. The patient remains afebrile. He continues on fluconazole which was started February 23 and Zosyn which was started March 17. Prior to being on Zosyn, he was on meropenem but this was discontinued March 18 He continues to have tachycardia, but urine output remains stable. Fluid boluses in the past have not improved tachycardia. He does not appear to be in pain or anxious at this time. He is on fentanyl patch for pain and has when necessary medication for pain and anxiety. Will check TSH and reflex T4. 03/22/18 Stable, TSH normal. Mcdermott catheter discontinued. Pain well-controlled; taking by mouth well. 03/23/18 Oral intake improving, has been on a regular diet for approximately 5 days now and is eating meals well. Will discuss tapering TPN off with surgery. Renal function, hemoglobin, and blood pressure all stable. Persistent tachycardia, patient tolerates well-does not respond to additional fluids and patient does not appear to be in pain. Continue fluconazole and Zosyn-antibiotics under the management of Dr. Ac. 03/24/18 Discontinuing TPN today; stable to transfer out of ICU. Otherwise stable. 03/25/18 Doing well, TPN discontinued yesterday. Blood sugars stable following discontinuation of TPN. Accu-Cheks DC'd. 03/26/18 Stable, no change in therapy. 03/27/[address] Ac - Continue Zosyn and fluconazole. He will need at least 2 weeks of antibiotics, but he might require more. I would recommend repeat CT in a couple weeks to make sure the abscesses are resolved before stopping antibiotics. Will change the fluconazole to po. WBC normal. Hgb 8.9. CRP increased to 112.6 but peaked at 182 earlier in the month. Ongoing tachycardia - cortisol level normal at 16. Trial low-dose beta eugene ( metoprolol 6.25 mg twice a day) to suppress tachycardia. 03/28/[address] doing well. Heart rate with slight decrease since starting metoprolol. Continue with Zosyn and fluconazole. Continue with wound vac and drains. Encourage ambulation to help strength. 03/29/19 Continue with Zosyn and fluconazole. Continue with wound vac and drains - anticipate repeat CT tomorrow. Will give IV Iron due to low iron levels - discussed with Pharm. Will have dose today, 03/31, and 04/03. 03/30/18 Continues to work well this therapy. Oral drive stable. CT showing unchanged abdominal and pelvic surgical drains with further decreased size of the left subdiaphragmatic fluid collection and essential resolution of the additional previously noted collections within the left paracolic gutter and peripancreatic region. Drain and wound vac care as per surgery. Dr. Hills will review report from CT today before pulling drains and deciding if midline incision can be closed. Continue with Zosyn and fluconazole for antimicrobial coverage. Increase metoprolol to 12.5mg BIDWM to help tachycardia. BP stable. 03/31/18 Clinically doing well. Lab stable. Strength and functional status improving. Dr Ac recommends changing from Zosyn to ciprofloxacin 500mg BID and metronidazole 500md BID in conjunction with oral Diflucan. Will change antibiotics and monitor clinical response off IV antibiotics. Continue drain and wound vac care as per surgery. Little change in heart rate with increased metoprolol - will continue to monitor. 04/01/18 Continue ciprofloxacin 500mg BID and metronidazole 500md BID in conjunction with oral Diflucan for antimicrobial coverage. Clinically and biochemically tolerating this change well. Continue drain and wound vac care as per surgery. HR and BP stable. Can discontinue tele. 04/02/18 Continue ciprofloxacin 500mg BID and metronidazole 500md BID in conjunction with oral Diflucan for antimicrobial coverage. Continue drain and wound vac care as per surgery. NPO tonight for possible drain removal/wound vac closure tomorrow. Encourage activities and ambulation. 04/03/18 OP DAY: Delayed closure midline incision; left thoracentesis, 1000 ml light yellow fluid aspirated. Continue abx -- changed to IV route d/t possible surgical intervention today. CRP increased to 124 but WBC is normal at 7.9 and he is afebrile. Platelet count back to normal range today. 04/04/18 Continue IV abx per Dr. Ac -- she recommends IV abx while he is in the hospital except for fluconazole. Currently on Zosyn. WBC 7.3. Afebrile. Pleural fluid studies pending.
--- NOTE | 2018-04-05 09:18 | ID Progress Note ---
Subjective Date: 04/05/18 Subjective: He is not really answering my questions today. Exam Vital Signs: Temperature 97.9 F 04/05/18 07:41 Pulse Rate 107 H 04/05/18 07:41 Respiratory Rate 18 04/05/18 07:41 Blood Pressure 113/72 04/05/18 07:41 Pulse Oximetry 95 04/05/18 07:41 Height/Weight/BMI: Height 1.75 m Weight 58.5 kg Body Mass Index 19.6 - Constitutional Present: no acute distress, thin - Routine HEENT Exam Head: Present: normocephalic, atraumatic Eye: Present: EOMI, PERRL ENT: Present: mucous membranes moist, oropharynx clear - Routine Neck Exam Present: supple - Routine Respiratory Exam Present: CTA bilaterally - Routine Cardiovascular Exam Present: RRR - Routine Abdominal Exam Present: soft, ostomy Comments: Midline abdominal incision covered with dressing. No wound VAC. I did not touch his abdomen much because he didn't want me to examine him. - Routine Extremities Exam Absent: cyanosis, clubbing, edema, joint swelling - Routine Skin Exam Present: intact. Absent: rash - Routine Neurological Exam Present: alert - Routine Psychiatric Exam Present: unable to assess Results - Labs CBC & Chem 7: 04/05/18 04:15 04/05/18 04:15 Microbiology Results: Microbiology 04/03/18 18:25 Pleural Fluid Fungal Culture and Stain - Preliminary 04/03/18 18:25 Pleural Fluid Gram Stain - Final 04/03/18 18:25 Pleural Fluid Body Fluid Culture - Preliminary No Growth After 2 Days 03/01/18 18:56 Abdomen, Left Upper Gram Stain - Final 03/01/18 18:56 Abdomen, Left Upper Surgical Culture - Final Escherichia coli Anaerobic Gram-Negative Bhanu Anaerobic Gram-Positive Cocci 02/23/18 20:15 Peripheral/Iv Start Gram Stain - Final Not performed 02/23/18 20:15 Peripheral/Iv Start Blood Culture - Final No Growth After 5 Days 02/23/18 20:05 Peripheral/Iv Start Gram Stain - Final Not performed 02/23/18 20:05 Peripheral/Iv Start Blood Culture - Final No Growth After 5 Days 02/20/18 20:07 Peripheral/Iv Start Blood Culture - Final No Growth After 5 Days Impression: Sepsis, secondary to GI source Fever, leukocytosis, improving Sinus tachycardia Perforation of splenic flexure due to ischemia, s/p near total colectomy with ostomy placement 02/23/18, fecal peritonitis noted S/p operative drainage of intra-abdominal abscesses and fecal disimpaction , cultures with E. coli, anaerobic GNR, anaerobic GPC. CT 03/30 showed "unchanged abdominal and pelvic surgical drains with further decreased size of the left subdiaphragmatic fluid collection (now 5.7 x 2.7cm) and essential resolution of the additional previously noted collections within the left paracolic gutter and peripancreatic region. Severe iron deficiency anemia autism H/o toxic megacolon S/p Left thoracentesis, delayed primary closure of midline surgical wound Recommendation: I'll change his antibiotics to oral cipro 500mg po BID, flagyl 500mg po BID and continue on the oral fluconazole. Would repeat CT in about 2 weeks. Discharge planning per primary team.
[2018-04-05] MEDS: MetroNIDAZOLE 500 MG TABLET PO SCH ×2 (10:08→20:30)
[2018-04-05] MEDS: CIPROFLOXACIN 500 MG TABLET PO SCH ×2 (10:08→20:30)
--- NOTE | 2018-04-05 13:03 | Progress Note ---
DATE OF SERVICE 04/05/2018 FINDINGS Cosmo was seen earlier today on rounds. He did not appear to be in any distress. He denied abdominal pain when questioned. PHYSICAL EXAM VITAL SIGNS: Afebrile, normotensive. ABDOMEN: Soft, nontender. LABORATORY/RADIOGRAPHIC EVALUATION CBC obtained today unremarkable. Hemoglobin stable at 9.9. White count stable at 6.8. BMP obtained and found to be within normal limits. ASSESSMENT 32-year-old gentleman status post exploratory laparotomies x 2 secondary to colonic perforation and development of intraabdominal abscesses. Patient currently doing well. PLAN From a general surgical standpoint I do believe the patient could be discharged to a skilled facility or to home if arrangements are made for colostomy care. Will defer final discharge to hospitalist system. Would recommend continuing ongoing oral antibiotics as recommended by Infectious Disease/Dr. Ac. Will plan on repeating CT scan in the near future as discussed previously. SYLVAIN
--- NOTE | 2018-04-05 14:19 | Progress Note ---
- Date 04/05/18 Subjective: Patient was seen this afternoon in his room. He was sleeping but awakened easily. He stated he felt fine. He denied abdominal pain. It's uncertain how correct his answers to questions are. His nurse states he ate a good breakfast. It looks like he didn't eat very much lunch. Objective Vital signs: Temperature 98.2 F 04/05/18 12:00 Pulse Rate 109 H 04/05/18 12:00 Respiratory Rate 18 04/05/18 12:00 Blood Pressure 106/69 04/05/18 12:00 Pulse Oximetry 96 04/05/18 12:00 Rhythm: Sinus Tachycardia Height/Weight/BMI: Height 1.75 m Weight 58.5 kg Body Mass Index 19.6 Comments: Afebrile, heart rate 109, blood pressure 106/69, O2 sat 96% on room air GEN-alert, no acute distress, thin HEENT-sclera anicteric NECK-supple CV-borderline tachycardic rate with irregular rhythm CHEST-clear to auscultation bilaterally ABD-soft, nontender, positive bowel sounds. He has brown soft stool in his ostomy bag -no Mcdermott, he is incontinent of urine EXT-no edema NEURO-no focal deficits, patient does have autism and is minimally verbal SKIN-warm and dry Results - Labs CBC & Chem 7: 04/06/18 04:14 04/05/18 04:15 Microbiology Results: Microbiology 04/03/18 18:25 Pleural Fluid Fungal Culture and Stain - Preliminary 04/03/18 18:25 Pleural Fluid Gram Stain - Final 04/03/18 18:25 Pleural Fluid Body Fluid Culture - Preliminary No Growth After 2 Days 03/01/18 18:56 Abdomen, Left Upper Gram Stain - Final 03/01/18 18:56 Abdomen, Left Upper Surgical Culture - Final Escherichia coli Anaerobic Gram-Negative Bhanu Anaerobic Gram-Positive Cocci 02/23/18 20:15 Peripheral/Iv Start Gram Stain - Final Not performed 02/23/18 20:15 Peripheral/Iv Start Blood Culture - Final No Growth After 5 Days 02/23/18 20:05 Peripheral/Iv Start Gram Stain - Final Not performed 02/23/18 20:05 Peripheral/Iv Start Blood Culture - Final No Growth After 5 Days 02/20/18 20:07 Peripheral/Iv Start Blood Culture - Final No Growth After 5 Days Assessment and Plan (1) Megacolon Problem details: Toxic megacolon Current visit: Yes Status: Resolved (2) Perforation of colon Problem details: Perforation of the splenic flexure due to ischemic changes Current visit: Yes Status: Acute Assessment and Plan: Assessment 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 On meropenem 03/08-03/17, Vancomycin 03/07-03/17; Zosyn initiated on March 18. -04/03/18 Delayed closure midline incision; left thoracentesis, 1000 ml light yellow fluid aspirated. Tachycardia -persistent during the hospital course Severe constipation-resolved Severe sepsis -resolved Fever Severe iron deficiency anemia-received IV iron 02/25/2018 and 03/04/2018. He has had a total of 6 units of blood, he received his last unit 03/17/2018 Autism Dental problems Hypophosphatemia-resolved Hyperphosphatemia-on TPN Hypermagnesemia-on TPN-resolved Hypokalemia (Not POA) -resolved LLL atelectasis Acute kidney injury with oliguria-postop -resolved Hyperkalemia (Not POA) -resolved Thrombocytosis (Not POA) Left pleural effusion-status post thoracentesis of 1.1 L on 04/03/2018 Mild elevation of INR of 1.39 on 03/19/[address] Ac saw the patient and recommended change to oral Cipro and Flagyl. She is discontinued Zosyn. The patient will remain on oral Diflucan. Continue to encourage by mouth intake. Continue with physical therapy Discussed with case management, the nursing homes she has talked with have declined to accept the patient, possibly because of few skilled needs. She will talk with the patient's parents about possible discharge to home with them and consulting home health. DVT Prophylaxis: SCD's, Lovenox GI Prophylaxis: Protonix Resuscitation Status: Full Code - Physician Narrative Narrative: Date: 04/03/18 Time: 0854 Hospital Course Summary Disclaimer: The visit summary below is not to be considered part of the above Progress Note. Hospital Course: 02/20/18 Admit, CCU. Bowel rest - NPO. Cont IVF - 1/2 NS with Na of 144. Consult Dr. Gomez for mgt. Sx management with Protonix, morphine, Zofran. Cont IVF for tachycardia; sepsis. Repeat lactate. Cont Zosyn for bowel coverage. Follow BC results. Iron w/u in progress. Type & screen ordered. D/W with Dr. Stevens and RN. 02/22/18 Gastrografin enema 02/21 with copious stool resulting. However, still with stool in rectal vault. Deferring further management to surgery team, await recs. Cont Zosyn given bandemia, tachycardia and concern for toxic megacolon. 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 Clinically deteriorating. Going for surgery for perforation/free air. Near total colectomy performed. Became hypotensive, tachycardic with rates into 180s. Aggressively fluid resuscitated. 02/24/18 UOP, tachycardia improved. Cont abx. Initiate TPN. Monitoring for return of bowel fxn. 02/25/18 Given Kphos Transfused another 1U PRBCs. Stopped LR. Surgery to trial clamping NGT. Intermittently febrile- rectal Tylenol. 02/26/18 Did have fever overnight. Has tolerated NGT clamping. No O2 requirements. No N/V /CP. Hasn't been able to perform IS very well. 02/27/18 Remains on TPN, tolerating limited oral liquids earlier today however resultant emesis has required resumption of NG suction. Good output per ostomy; 2400 mL output reported during prior 24-hour period. Hemoglobin drifting down, ongoing hypokalemia-post being reassessed this afternoon. Potassium increased and TPN but may require supplemental boluses due to potassium lost in stool and emesis. Persistent tachycardia-may require additional blood transfusion. Remains on Zosyn for peritonitis; chest x-ray with pleural effusion but no evidence of pneumonia. May require repeat CT abdomen/pelvis to exclude intra-abdominal abscess. 02/28/18 Remains on TPN, electrolytes stable. Good urine output per ostomy but continues to have high volume output per NG. Output significantly higher than input, weight down, ongoing tachycardia--> 1 L fluid bolus tonight. Anticipate ongoing need for fluids to match fluid losses. CT abdomen/pelvis discussed with radiology this evening and subsequently with Dr. Hills; will review further with radiology tomorrow to determine if drainage can be performed of the subphrenic abscess percutaneously or if surgical drainage/washout will be needed due to presence of multiple smaller fluid collections suggestive of early abscesses. Dr. Hills notified patient 's parents of findings. Hemoglobin continues to drift down very slowly, may be slightly hemoconcentrated at present. Type and screen in a.m. Anticipating transfusion in the next 1-2 days. 03/01/18 OP Day - Exploratory laparotomy, drainage of multiple intraabdominal abscesses, fecal disimpaction, intraoperative flexible proctoscopy. Subdiaphragmatic abscess and left upper quadrant-discussed with radiology and message subsequently relayed to Dr. Hills regarding potential risk of percutaneous drainage. Patient tenably scheduled to return to the operating room later today. Several very small extensive gas in the pelvis without clear room enhancement to suggest abscess, may simply be postoperative change. Remains on TPN, electrolytes stable. Good urine output per ostomy but continues to have high volume output per NG. Output significantly higher than input, weight down, ongoing tachycardia--> 1 L fluid bolus this a.m. and continue normal saline at 100 mL per hour. 2 units PRBCs matched preoperatively; one being given prior to surgery for hemoglobin 7.4. 03/02/18 s/p ex lap with placement of drains by Dr. Hills. Febrile before surgery. WBC up post-op. Wound cx growing GPC, GNR, GPR. Continue Zosyn Remains on TPN, reduce K+. Good urine output. Output per NG down. Continued tachycardia. Continue IVF and treat pain. Output significantly higher than input, weight down, ongoing tachycardia--> 1 L fluid bolus this a.m. and continue normal saline at 100 mL per hour. Anticipate ongoing need for fluids to match fluid losses. 1 unit PRBCs given 03/01. Total of 4 units transfused Ferrlecit dose given 02/25, plan to repeat dose 03/04. Discussed with nursing who provide supplemental history; mother updated. Prognosis guarded. 03/03/18 s/p ex lap 03/01 with placement of drains by Dr. Hills. Afebrile and WBC down. Wound cx growing GPC, GNR, GPR. Continue Zosyn and fluconazole Continue TPN, K+ improved. Good urine output. Output per NG and ostomy down since 03/01 ex lap. Continued tachycardia. Continue IVF and treat pain. ? whether anxious. Trial of Ativan Anticipate ongoing need for fluids to match fluid losses. 1 unit PRBCs given 03/01. Total of 4 units transfused Ferrlecit dose given 02/25, plan to repeat dose 03/04. Discussed with nursing who provide supplemental history; mother updated. Prognosis guarded. 03/04/18 s/p ex lap 03/01 with placement of drains by Dr. Hills. Fever and WBC up slightly. Wound cx growing e coli, sensitive to Zosyn. Fluconazole. Check CXR Continue TPN, K+ improved. Good urine output. Output per NG and ostomy down since 03/01 ex lap. Continued tachycardia. Hold LR as patient with trace edema. Start fentanyl patch for pain. He got 28 mg iv morphine yesterday. Starting fentanyl at 12mcg d /t possible interaction with Fluconazole. 1 unit PRBCs given 03/01. Total of 4 units transfused Ferrlicit dose given 02/25, plan to repeat dose 03/04. Discussed with nursing who provide supplemental history. Encourage activity. Prognosis guarded 03/05/18 s/p ex lap 03/01 with placement of drains by Dr. Hills. Wound VAC. Fever. WBC down slightly. Wound cx growing e coli, sensitive to Zosyn. Fluconazole. Check CXR. Continue TPN, decrease Mg. Good urine output. Output per NG up yesterday. Continued tachycardia. Holding LR as patient with trace edema. Appears more comfortable with fentanyl patch for pain. Platelets trending up. Check inflammatory markers. If continued fever, consider repeating CT Encourage activity. 03/06/18 Temp elevations to 100.5 - 101.7. Persistent tachycardia in 130s. BP 100's. WBC with gradual trend down to 17.9 - was 25.0 on 03/02. Platelets trending up to 971 (was 407 on 03/02). Electrolytes and renal status stable - on TPN. Will continue with Zosyn and Diflucan for antimicrobial coverage. Continue with wound vac and drains. CT scan of ab/pelvis to exclude occult abscess formation. Encourage continued activities. 03/07/18 WBC with gradual trend down to 14.3 - was 17.9 on yesterday. Platelets elevated at 961 (was 971 yesterday). Hemoglobin persistently low at 7.6; with continued tachycardia will give 1 unit of pRBC. Electrolytes and renal status stable - on TPN. Will continue with Zosyn for antimicrobial coverage; Dr Gomez added Vancomycin and increased Diflucan to 200mg daily. Continue with wound vac and drains. CT scan of ab/pelvis showed possible new abscess formation in the suprapubic region and omental area. Encourage continued activities. 03/08/18 WBC with increase back to 17.1. HGB increased to 8.2 post transfusion yesterday. Pharm recommended changing Zosyn to Meropenem - did agree. Continue vancomycin and Diflucan. Will continue with TPN for nutritional support - NS bolus of 500cc to help with tachycardia. Continue with pain control. 03/09/18 Temp elevations continue. WBC with decrease to 15.6, but increased bands noted. Renal status and electrolytes stable. Continues of Meropenem, vancomycin, and Diflucan for coverage. Dr Gomez plan repeating CT scan with contrast (though NG) tomorrow to check for bowel function and further abscesses. TPN for nutritional and volume support. Continue with MS for pain, add Aspercreme for muscle discomfort. 03/10/18 Temp elevations continue. WBC 16.4. Renal status and electrolytes stable. Little change in overall status. CT ab/pelvis shown abscess with drain in place, however abscess has increased in size. Sx working to have drains flushed. Continues on Meropenem, vancomycin, and Diflucan for coverage. TPN for nutritional and volume support. Will give 500cc NS bolus to help improve BP. 03/11/18 Temp elevations continue. WBC trended down to 14. Renal status and electrolytes stable. Little change in overall status. CT ab/pelvis shown abscess with drain in place, however abscess has increased in size. Sx working to have drains flushed. Continues on Meropenem, vancomycin, and Diflucan for coverage. TPN for nutritional and volume support. Repeat 500cc NS bolus today and add metoprolol for tachycardia as BP allows. Continue pain control. 03/12/18 Temp elevations continue. WBC trended down to 12.7. Renal status and electrolytes stable. Little change in overall status. CT ab/pelvis shown abscess with drain in place, however abscess has increased in size per CT 03/10/18. Sx working to have drains flushed. Continues on Meropenem, vancomycin, and Diflucan for coverage. TPN for nutritional and volume support. Added q12hr metoprolol in attempt to control heart rate, only marginally working and could be titrated if blood pressure allows. Continue pain control. 03/13/18 WBC with trend down, but still with tachycardia and intermittent temp elevations. Continues on Meropenem, vancomycin, and Diflucan for coverage. TPN for nutritional and volume support. Continue pain control. 03/14/18 WBC with elevation to 13.4. CT showing decrease size of abscess. Continues on Meropenem, vancomycin, and Diflucan for coverage. TPN for nutritional and volume support. Electrolytes and renal status stable. Continue pain control. Continue activities as able. 03/15/18 WBC with stable at 13.7. Platelets with decrease to 594. Less temp elevations seen. Continues on Meropenem, vancomycin, and Diflucan for coverage. TPN for nutritional and volume support. Electrolytes and renal status stable. Dr Gomez trying NG clamping and clear liquids. Continue pain control. Continue activities as able. 03/16/18 WBC with decrease to 11.7. Platelets with decrease to 546. Less temp elevations seen. Continues on Meropenem, vancomycin, and Diflucan for coverage. TPN for nutritional and volume support. Electrolytes and renal status stable. NG removed; clear liquids. 03/17/18 WBC with decrease to 10.1. Platelets with decrease to 529. Less temp elevations seen. Evaluated by Dr Ac today - vancomycin stopped and changed meropenem to Zosyn and continued Diflucan. TPN for nutritional and volume support. Electrolytes and renal status stable. Advanced to regular diet but oral drive low. HGB variable, but trend down. Will give 1 unit pRBC due to continued tachycardia in post op patent. Continue pain control. Continue activities as able - walking in halls with nursing help. 03/18/2018 White blood cell count today is up mildly to 12.1. Bands are up to 7 from one yesterday. He has been afebrile over 24 hours. Hemoglobin improved to 9.5 up from 7.1 yesterday. He received 1 unit of blood yesterday. He does have mildly elevated phosphorus and magnesium. Discussed with pharmacy. The rate of his TPN will be decreased. Will recheck phosphorus and magnesium tomorrow. Repeat INR tomorrow. Repeat CBC and renal panel tomorrow. Advance diet as tolerated. Will try oral supplements. Continue ambulation with assist. The patient continues to have persistent tachycardia this hospital course, but rate is slowly improving. No real change with transfusion of 1 unit of blood. Recheck C-reactive protein tomorrow Discussed case with CCU nursing. We'll check a vitamin B-12 tomorrow regarding borderline low B-12 level Greater than 40 minutes of critical care time spent seeing and evaluating the patient in determining care plan. 03/19/2018 White blood cell count continues to increase and is 16.5 today. Bands are 6 down from 7 yesterday. Hemoglobin has improved to 10.9. Patient remains afebrile. C-reactive protein has decreased from 181 down to 75. We'll continue on fluconazole and Zosyn for intra-abdominal abscesses. Advance diet as tolerated. Continue TPN for now, he will receive a customized formula with no phosphorus and decreased magnesium and calcium. Continue ambulation with assist Recheck CBC with manual differential, renal panel, magnesium tomorrow. 03/20/2018 White blood cell count continues to increase and is 18.8 today from 16.8 yesterday. Bands are 1 down from 6 yesterday. Temperature currently is 99.9. Dr. Gomez has ordered CT abdomen with contrast. The patient is currently on day 4 of Zosyn. He has been on fluconazole since at least February 23. Meropenem was discontinued March 18. Continue TPN for now, he is on a customized formula. Continue ambulation with assist Recheck CBC with manual differential, renal panel, magnesium tomorrow. Discussed with the patient's nurse and family. 03/21/18 CT abdomen with contrast obtained yesterday and shows a decrease in size of the intra-abdominal abscesses with no new abscess formation. White count is essentially stable from yesterday. The patient remains afebrile. He continues on fluconazole which was started February 23 and Zosyn which was started March 17. Prior to being on Zosyn, he was on meropenem but this was discontinued March 18 He continues to have tachycardia, but urine output remains stable. Fluid boluses in the past have not improved tachycardia. He does not appear to be in pain or anxious at this time. He is on fentanyl patch for pain and has when necessary medication for pain and anxiety. Will check TSH and reflex T4. 03/22/18 Stable, TSH normal. Mcdermott catheter discontinued. Pain well-controlled; taking by mouth well. 03/23/18 Oral intake improving, has been on a regular diet for approximately 5 days now and is eating meals well. Will discuss tapering TPN off with surgery. Renal function, hemoglobin, and blood pressure all stable. Persistent tachycardia, patient tolerates well-does not respond to additional fluids and patient does not appear to be in pain. Continue fluconazole and Zosyn-antibiotics under the management of Dr. Ac. 03/24/18 Discontinuing TPN today; stable to transfer out of ICU. Otherwise stable. 03/25/18 Doing well, TPN discontinued yesterday. Blood sugars stable following discontinuation of TPN. Accu-Cheks DC'd. 03/26/18 Stable, no change in therapy. 03/27/[address] Ac - Continue Zosyn and fluconazole. He will need at least 2 weeks of antibiotics, but he might require more. I would recommend repeat CT in a couple weeks to make sure the abscesses are resolved before stopping antibiotics. Will change the fluconazole to po. WBC normal. Hgb 8.9. CRP increased to 112.6 but peaked at 182 earlier in the month. Ongoing tachycardia - cortisol level normal at 16. Trial low-dose beta eugene ( metoprolol 6.25 mg twice a day) to suppress tachycardia. 03/28/[address] doing well. Heart rate with slight decrease since starting metoprolol. Continue with Zosyn and fluconazole. Continue with wound vac and drains. Encourage ambulation to help strength. 03/29/19 Continue with Zosyn and fluconazole. Continue with wound vac and drains - anticipate repeat CT tomorrow. Will give IV Iron due to low iron levels - discussed with Pharm. Will have dose today, 03/31, and 04/03. 03/30/18 Continues to work well this therapy. Oral drive stable. CT showing unchanged abdominal and pelvic surgical drains with further decreased size of the left subdiaphragmatic fluid collection and essential resolution of the additional previously noted collections within the left paracolic gutter and peripancreatic region. Drain and wound vac care as per surgery. Dr. Hills will review report from CT today before pulling drains and deciding if midline incision can be closed. Continue with Zosyn and fluconazole for antimicrobial coverage. Increase metoprolol to 12.5mg BIDWM to help tachycardia. BP stable. 03/31/18 Clinically doing well. Lab stable. Strength and functional status improving. Dr Ac recommends changing from Zosyn to ciprofloxacin 500mg BID and metronidazole 500md BID in conjunction with oral Diflucan. Will change antibiotics and monitor clinical response off IV antibiotics. Continue drain and wound vac care as per surgery. Little change in heart rate with increased metoprolol - will continue to monitor. 04/01/18 Continue ciprofloxacin 500mg BID and metronidazole 500md BID in conjunction with oral Diflucan for antimicrobial coverage. Clinically and biochemically tolerating this change well. Continue drain and wound vac care as per surgery. HR and BP stable. Can discontinue tele. 04/02/18 Continue ciprofloxacin 500mg BID and metronidazole 500md BID in conjunction with oral Diflucan for antimicrobial coverage. Continue drain and wound vac care as per surgery. NPO tonight for possible drain removal/wound vac closure tomorrow. Encourage activities and ambulation. 04/03/18 OP DAY: Delayed closure midline incision; left thoracentesis, 1000 ml light yellow fluid aspirated. Continue abx -- changed to IV route d/t possible surgical intervention today. CRP increased to 124 but WBC is normal at 7.9 and he is afebrile. Platelet count back to normal range today. 04/04/18 Continue IV abx per Dr. Ac -- she recommends IV abx while he is in the hospital except for fluconazole. Currently on Zosyn. WBC 7.3. Afebrile. Pleural fluid studies pending.
[2018-04-06] MEDS: SALINE FLUSH 10ml SYRINGE IVF PRN ×2 (04:19→11:01)
[2018-04-06] MEDS: PANTOPRAZOLE 40 MG TABLET PO SCH (06:29)
--- NOTE | 2018-04-06 08:34 | General Surgery Progress Note ---
Subjective Patient reports: tolerating a regular diet, voiding w/o difficulty (but incontinent frequently), bowel movement (brown stool in colostomy bag), afebrile - Vital Signs Last Vital Signs Temp 97.6 F 04/06/18 07:05 Pulse 106 H 04/06/18 07:05 Resp 18 04/06/18 07:05 BP 116/73 04/06/18 07:05 Pulse Ox 96 04/06/18 07:05 - Laboratory Result Diagrams: 04/06/18 04:14 04/05/18 04:15 - Microbiogy Microbiology 04/03/18 18:25 Pleural Fluid Fungal Culture and Stain - Preliminary 04/03/18 18:25 Pleural Fluid Gram Stain - Final 04/03/18 18:25 Pleural Fluid Body Fluid Culture - Preliminary No Growth After 2 Days - Normal Exam General: awake, alert Cardiovascular: regular rate Respiratory: no labored breathing Abdominal: incision(s) (midline with sutures in tact, dressing with urine on it and is removed, will leave open to air. 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 His day care facility may be helpful as well regarding monitoring of colostomy and incision. Appointments already made and in the Discharge Plan for April [address] Gomez's office and CT. ABX per Dr. Ac. OK to discharge from surgical standpoint. Hospital Course Summary Disclaimer: The visit summary below is not to be considered part of the above Progress Note. Hospital Course: 02/20/18 Admit, CCU. Bowel rest - NPO. Cont IVF - 1/2 NS with Na of 144. Consult Dr. Gomez for mgt. Sx management with Protonix, morphine, Zofran. Cont IVF for tachycardia; sepsis. Repeat lactate. Cont Zosyn for bowel coverage. Follow BC results. Iron w/u in progress. Type & screen ordered. D/W with Dr. Stevens and RN. 02/22/18 Gastrografin enema 02/21 with copious stool resulting. However, still with stool in rectal vault. Deferring further management to surgery team, await recs. Cont Zosyn given bandemia, tachycardia and concern for toxic megacolon. 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 Clinically deteriorating. Going for surgery for perforation/free air. Near total colectomy performed. Became hypotensive, tachycardic with rates into 180s. Aggressively fluid resuscitated. 02/24/18 UOP, tachycardia improved. Cont abx. Initiate TPN. Monitoring for return of bowel fxn. 02/25/18 Given Kphos Transfused another 1U PRBCs. Stopped LR. Surgery to trial clamping NGT. Intermittently febrile- rectal Tylenol. 02/26/18 Did have fever overnight. Has tolerated NGT clamping. No O2 requirements. No N/V /CP. Hasn't been able to perform IS very well. 02/27/18 Remains on TPN, tolerating limited oral liquids earlier today however resultant emesis has required resumption of NG suction. Good output per ostomy; 2400 mL output reported during prior 24-hour period. Hemoglobin drifting down, ongoing hypokalemia-post being reassessed this afternoon. Potassium increased and TPN but may require supplemental boluses due to potassium lost in stool and emesis. Persistent tachycardia-may require additional blood transfusion. Remains on Zosyn for peritonitis; chest x-ray with pleural effusion but no evidence of pneumonia. May require repeat CT abdomen/pelvis to exclude intra-abdominal abscess. 02/28/18 Remains on TPN, electrolytes stable. Good urine output per ostomy but continues to have high volume output per NG. Output significantly higher than input, weight down, ongoing tachycardia--> 1 L fluid bolus tonight. Anticipate ongoing need for fluids to match fluid losses. CT abdomen/pelvis discussed with radiology this evening and subsequently with Dr. Hills; will review further with radiology tomorrow to determine if drainage can be performed of the subphrenic abscess percutaneously or if surgical drainage/washout will be needed due to presence of multiple smaller fluid collections suggestive of early abscesses. Dr. Hills notified patient 's parents of findings. Hemoglobin continues to drift down very slowly, may be slightly hemoconcentrated at present. Type and screen in a.m. Anticipating transfusion in the next 1-2 days. 03/01/18 OP Day - Exploratory laparotomy, drainage of multiple intraabdominal abscesses, fecal disimpaction, intraoperative flexible proctoscopy. Subdiaphragmatic abscess and left upper quadrant-discussed with radiology and message subsequently relayed to Dr. Hills regarding potential risk of percutaneous drainage. Patient tenably scheduled to return to the operating room later today. Several very small extensive gas in the pelvis without clear room enhancement to suggest abscess, may simply be postoperative change. Remains on TPN, electrolytes stable. Good urine output per ostomy but continues to have high volume output per NG. Output significantly higher than input, weight down, ongoing tachycardia--> 1 L fluid bolus this a.m. and continue normal saline at 100 mL per hour. 2 units PRBCs matched preoperatively; one being given prior to surgery for hemoglobin 7.4. 03/02/18 s/p ex lap with placement of drains by Dr. Hills. Febrile before surgery. WBC up post-op. Wound cx growing GPC, GNR, GPR. Continue Zosyn Remains on TPN, reduce K+. Good urine output. Output per NG down. Continued tachycardia. Continue IVF and treat pain. Output significantly higher than input, weight down, ongoing tachycardia--> 1 L fluid bolus this a.m. and continue normal saline at 100 mL per hour. Anticipate ongoing need for fluids to match fluid losses. 1 unit PRBCs given 03/01. Total of 4 units transfused Ferrlecit dose given 02/25, plan to repeat dose 03/04. Discussed with nursing who provide supplemental history; mother updated. Prognosis guarded. 03/03/18 s/p ex lap 03/01 with placement of drains by Dr. Hills. Afebrile and WBC down. Wound cx growing GPC, GNR, GPR. Continue Zosyn and fluconazole Continue TPN, K+ improved. Good urine output. Output per NG and ostomy down since 03/01 ex lap. Continued tachycardia. Continue IVF and treat pain. ? whether anxious. Trial of Ativan Anticipate ongoing need for fluids to match fluid losses. 1 unit PRBCs given 03/01. Total of 4 units transfused Ferrlecit dose given 02/25, plan to repeat dose 03/04. Discussed with nursing who provide supplemental history; mother updated. Prognosis guarded. 03/04/18 s/p ex lap 03/01 with placement of drains by Dr. Hills. Fever and WBC up slightly. Wound cx growing e coli, sensitive to Zosyn. Fluconazole. Check CXR Continue TPN, K+ improved. Good urine output. Output per NG and ostomy down since 03/01 ex lap. Continued tachycardia. Hold LR as patient with trace edema. Start fentanyl patch for pain. He got 28 mg iv morphine yesterday. Starting fentanyl at 12mcg d /t possible interaction with Fluconazole. 1 unit PRBCs given 03/01. Total of 4 units transfused Ferrlicit dose given 02/25, plan to repeat dose 03/04. Discussed with nursing who provide supplemental history. Encourage activity. Prognosis guarded 03/05/18 s/p ex lap 03/01 with placement of drains by Dr. Hills. Wound VAC. Fever. WBC down slightly. Wound cx growing e coli, sensitive to Zosyn. Fluconazole. Check CXR. Continue TPN, decrease Mg. Good urine output. Output per NG up yesterday. Continued tachycardia. Holding LR as patient with trace edema. Appears more comfortable with fentanyl patch for pain. Platelets trending up. Check inflammatory markers. If continued fever, consider repeating CT Encourage activity. 03/06/18 Temp elevations to 100.5 - 101.7. Persistent tachycardia in 130s. BP 100's. WBC with gradual trend down to 17.9 - was 25.0 on 03/02. Platelets trending up to 971 (was 407 on 03/02). Electrolytes and renal status stable - on TPN. Will continue with Zosyn and Diflucan for antimicrobial coverage. Continue with wound vac and drains. CT scan of ab/pelvis to exclude occult abscess formation. Encourage continued activities. 03/07/18 WBC with gradual trend down to 14.3 - was 17.9 on yesterday. Platelets elevated at 961 (was 971 yesterday). Hemoglobin persistently low at 7.6; with continued tachycardia will give 1 unit of pRBC. Electrolytes and renal status stable - on TPN. Will continue with Zosyn for antimicrobial coverage; Dr Gomez added Vancomycin and increased Diflucan to 200mg daily. Continue with wound vac and drains. CT scan of ab/pelvis showed possible new abscess formation in the suprapubic region and omental area. Encourage continued activities. 03/08/18 WBC with increase back to 17.1. HGB increased to 8.2 post transfusion yesterday. Pharm recommended changing Zosyn to Meropenem - did agree. Continue vancomycin and Diflucan. Will continue with TPN for nutritional support - NS bolus of 500cc to help with tachycardia. Continue with pain control. 03/09/18 Temp elevations continue. WBC with decrease to 15.6, but increased bands noted. Renal status and electrolytes stable. Continues of Meropenem, vancomycin, and Diflucan for coverage. Dr Gomez plan repeating CT scan with contrast (though NG) tomorrow to check for bowel function and further abscesses. TPN for nutritional and volume support. Continue with MS for pain, add Aspercreme for muscle discomfort. 03/10/18 Temp elevations continue. WBC 16.4. Renal status and electrolytes stable. Little change in overall status. CT ab/pelvis shown abscess with drain in place, however abscess has increased in size. Sx working to have drains flushed. Continues on Meropenem, vancomycin, and Diflucan for coverage. TPN for nutritional and volume support. Will give 500cc NS bolus to help improve BP. 03/11/18 Temp elevations continue. WBC trended down to 14. Renal status and electrolytes stable. Little change in overall status. CT ab/pelvis shown abscess with drain in place, however abscess has increased in size. Sx working to have drains flushed. Continues on Meropenem, vancomycin, and Diflucan for coverage. TPN for nutritional and volume support. Repeat 500cc NS bolus today and add metoprolol for tachycardia as BP allows. Continue pain control. 03/12/18 Temp elevations continue. WBC trended down to 12.7. Renal status and electrolytes stable. Little change in overall status. CT ab/pelvis shown abscess with drain in place, however abscess has increased in size per CT 03/10/18. Sx working to have drains flushed. Continues on Meropenem, vancomycin, and Diflucan for coverage. TPN for nutritional and volume support. Added q12hr metoprolol in attempt to control heart rate, only marginally working and could be titrated if blood pressure allows. Continue pain control. 03/13/18 WBC with trend down, but still with tachycardia and intermittent temp elevations. Continues on Meropenem, vancomycin, and Diflucan for coverage. TPN for nutritional and volume support. Continue pain control. 03/14/18 WBC with elevation to 13.4. CT showing decrease size of abscess. Continues on Meropenem, vancomycin, and Diflucan for coverage. TPN for nutritional and volume support. Electrolytes and renal status stable. Continue pain control. Continue activities as able. 03/15/18 WBC with stable at 13.7. Platelets with decrease to 594. Less temp elevations seen. Continues on Meropenem, vancomycin, and Diflucan for coverage. TPN for nutritional and volume support. Electrolytes and renal status stable. Dr Gomez trying NG clamping and clear liquids. Continue pain control. Continue activities as able. 03/16/18 WBC with decrease to 11.7. Platelets with decrease to 546. Less temp elevations seen. Continues on Meropenem, vancomycin, and Diflucan for coverage. TPN for nutritional and volume support. Electrolytes and renal status stable. NG removed; clear liquids. 03/17/18 WBC with decrease to 10.1. Platelets with decrease to 529. Less temp elevations seen. Evaluated by Dr Ac today - vancomycin stopped and changed meropenem to Zosyn and continued Diflucan. TPN for nutritional and volume support. Electrolytes and renal status stable. Advanced to regular diet but oral drive low. HGB variable, but trend down. Will give 1 unit pRBC due to continued tachycardia in post op patent. Continue pain control. Continue activities as able - walking in halls with nursing help. 03/18/2018 White blood cell count today is up mildly to 12.1. Bands are up to 7 from one yesterday. He has been afebrile over 24 hours. Hemoglobin improved to 9.5 up from 7.1 yesterday. He received 1 unit of blood yesterday. He does have mildly elevated phosphorus and magnesium. Discussed with pharmacy. The rate of his TPN will be decreased. Will recheck phosphorus and magnesium tomorrow. Repeat INR tomorrow. Repeat CBC and renal panel tomorrow. Advance diet as tolerated. Will try oral supplements. Continue ambulation with assist. The patient continues to have persistent tachycardia this hospital course, but rate is slowly improving. No real change with transfusion of 1 unit of blood. Recheck C-reactive protein tomorrow Discussed case with CCU nursing. We'll check a vitamin B-12 tomorrow regarding borderline low B-12 level Greater than 40 minutes of critical care time spent seeing and evaluating the patient in determining care plan. 03/19/2018 White blood cell count continues to increase and is 16.5 today. Bands are 6 down from 7 yesterday. Hemoglobin has improved to 10.9. Patient remains afebrile. C-reactive protein has decreased from 181 down to 75. We'll continue on fluconazole and Zosyn for intra-abdominal abscesses. Advance diet as tolerated. Continue TPN for now, he will receive a customized formula with no phosphorus and decreased magnesium and calcium. Continue ambulation with assist Recheck CBC with manual differential, renal panel, magnesium tomorrow. 03/20/2018 White blood cell count continues to increase and is 18.8 today from 16.8 yesterday. Bands are 1 down from 6 yesterday. Temperature currently is 99.9. Dr. Gomez has ordered CT abdomen with contrast. The patient is currently on day 4 of Zosyn. He has been on fluconazole since at least February 23. Meropenem was discontinued March 18. Continue TPN for now, he is on a customized formula. Continue ambulation with assist Recheck CBC with manual differential, renal panel, magnesium tomorrow. Discussed with the patient's nurse and family. 03/21/18 CT abdomen with contrast obtained yesterday and shows a decrease in size of the intra-abdominal abscesses with no new abscess formation. White count is essentially stable from yesterday. The patient remains afebrile. He continues on fluconazole which was started February 23 and Zosyn which was started [facility]. Prior to being on Zosyn, he was on meropenem but this was discontinued March 18 He continues to have tachycardia, but urine output remains stable. Fluid boluses in the past have not improved tachycardia. He does not appear to be in pain or anxious at this time. He is on fentanyl patch for pain and has when necessary medication for pain and anxiety. Will check TSH and reflex T4. 03/22/18 Stable, TSH normal. Mcdermott catheter discontinued. Pain well-controlled; taking by mouth well. 03/23/18 Oral intake improving, has been on a regular diet for approximately 5 days now and is eating meals well. Will discuss tapering TPN off with surgery. Renal function, hemoglobin, and blood pressure all stable. Persistent tachycardia, patient tolerates well-does not respond to additional fluids and patient does not appear to be in pain. Continue fluconazole and Zosyn-antibiotics under the management of Dr. Ac. 03/24/18 Discontinuing TPN today; stable to transfer out of ICU. Otherwise stable. 03/25/18 Doing well, TPN discontinued yesterday. Blood sugars stable following discontinuation of TPN. Accu-Cheks DC'd. 03/26/18 Stable, no change in therapy. 03/27/[address] Ac - Continue Zosyn and fluconazole. He will need at least 2 weeks of antibiotics, but he might require more. I would recommend repeat CT in a couple weeks to make sure the abscesses are resolved before stopping antibiotics. Will change the fluconazole to po. WBC normal. Hgb 8.9. CRP increased to 112.6 but peaked at 182 earlier in the month. Ongoing tachycardia - cortisol level normal at 16. Trial low-dose beta eugene ( metoprolol 6.25 mg twice a day) to suppress tachycardia. 03/28/[address] doing well. Heart rate with slight decrease since starting metoprolol. Continue with Zosyn and fluconazole. Continue with wound vac and drains. Encourage ambulation to help strength. 03/29/19 Continue with Zosyn and fluconazole. Continue with wound vac and drains - anticipate repeat CT tomorrow. Will give IV Iron due to low iron levels - discussed with Pharm. Will have dose today, 03/31, and 04/03. 03/30/18 Continues to work well this therapy. Oral drive stable. CT showing unchanged abdominal and pelvic surgical drains with further decreased size of the left subdiaphragmatic fluid collection and essential resolution of the additional previously noted collections within the left paracolic gutter and peripancreatic region. Drain and wound vac care as per surgery. Dr. Hills will review report from CT today before pulling drains and deciding if midline incision can be closed. Continue with Zosyn and fluconazole for antimicrobial coverage. Increase metoprolol to 12.5mg BIDWM to help tachycardia. BP stable. 03/31/18 Clinically doing well. Lab stable. Strength and functional status improving. Dr Ac recommends changing from Zosyn to ciprofloxacin 500mg BID and metronidazole 500md BID in conjunction with oral Diflucan. Will change antibiotics and monitor clinical response off IV antibiotics. Continue drain and wound vac care as per surgery. Little change in heart rate with increased metoprolol - will continue to monitor. 04/01/18 Continue ciprofloxacin 500mg BID and metronidazole 500md BID in conjunction with oral Diflucan for antimicrobial coverage. Clinically and biochemically tolerating this change well. Continue drain and wound vac care as per surgery. HR and BP stable. Can discontinue tele. 04/02/18 Continue ciprofloxacin 500mg BID and metronidazole 500md BID in conjunction with oral Diflucan for antimicrobial coverage. Continue drain and wound vac care as per surgery. NPO tonight for possible drain removal/wound vac closure tomorrow. Encourage activities and ambulation. 04/03/18 OP DAY: Delayed closure midline incision; left thoracentesis, 1000 ml light yellow fluid aspirated. Continue abx -- changed to IV route d/t possible surgical intervention today. CRP increased to 124 but WBC is normal at 7.9 and he is afebrile. Platelet count back to normal range today. 04/04/18 Continue IV abx per Dr. Ac -- she recommends IV abx while he is in the hospital except for fluconazole. Currently on Zosyn. WBC 7.3. Afebrile. Pleural fluid studies pending.
[2018-04-06] MEDS: ENOXAPARIN 40 MG/0.4 ML INJECTION SQ SCH (08:36)
[2018-04-06] MEDS: FLUCONAZOLE 100 MG TABLET PO SCH (08:37)
[2018-04-06] MEDS: CIPROFLOXACIN 500 MG TABLET PO SCH ×2 (08:37→20:18)
[2018-04-06] MEDS: MetroNIDAZOLE 500 MG TABLET PO SCH ×2 (08:37→20:18)
--- NOTE | 2018-04-06 10:56 | Progress Note ---
- Date 04/06/18 Subjective: Arslan was seen this morning in his room. He stated "need to go away." I think he wanted me to leave the room. He stated he wanted his father to come and see him. He had refused physical therapy this morning and stated that he would work with them when his father came. He is not able to answer any questions for me reliably. He ate 50% of breakfast today, 75% of breakfast yesterday, 0% of lunch yesterday and dinner was not recorded yesterday. Objective Vital signs: Temperature 97.6 F 04/06/18 07:05 Pulse Rate 106 H 04/06/18 07:05 Respiratory Rate 18 04/06/18 07:05 Blood Pressure 116/73 04/06/18 07:05 Pulse Oximetry 96 04/06/18 07:05 Rhythm: Sinus Tachycardia Height/Weight/BMI: Height 1.75 m Weight 59 kg Body Mass Index 19.0 Comments: Afebrile, heart rate 106, blood pressure 116/73, O2 sat 96% on room air GEN-Arslan appears a little anxious but otherwise in no distress HEENT-oropharynx is moist NECK-supple CV-borderline tachycardic rate CHEST-clear to auscultation bilaterally ABD-soft, nontender, incision looks good, brown stool in his ostomy -the patient has on an adult diaper, he does seem wet and his nurse will be notified EXT-SCDs are on, no edema NEURO-no focal deficits, patient has severe autism SKIN-warm and dry Results - Labs CBC & Chem 7: 04/06/18 04:14 04/05/18 04:15 Microbiology Results: Microbiology 04/03/18 18:25 Pleural Fluid Fungal Culture and Stain - Preliminary 04/03/18 18:25 Pleural Fluid Gram Stain - Final 04/03/18 18:25 Pleural Fluid Body Fluid Culture - Preliminary No Growth After 2 Days 03/01/18 18:56 Abdomen, Left Upper Gram Stain - Final 03/01/18 18:56 Abdomen, Left Upper Surgical Culture - Final Escherichia coli Anaerobic Gram-Negative Bhanu Anaerobic Gram-Positive Cocci 02/23/18 20:15 Peripheral/Iv Start Gram Stain - Final Not performed 02/23/18 20:15 Peripheral/Iv Start Blood Culture - Final No Growth After 5 Days 02/23/18 20:05 Peripheral/Iv Start Gram Stain - Final Not performed 02/23/18 20:05 Peripheral/Iv Start Blood Culture - Final No Growth After 5 Days 02/20/18 20:07 Peripheral/Iv Start Blood Culture - Final No Growth After 5 Days Assessment and Plan (1) Megacolon Problem details: Toxic megacolon Current visit: Yes Status: Resolved (2) Perforation of colon Problem details: Perforation of the splenic flexure due to ischemic changes Current visit: Yes Status: Acute Assessment and Plan: Assessment 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 On meropenem 03/08-03/17, Vancomycin 03/07-03/17; Zosyn initiated on March 18. -04/03/18 Delayed closure midline incision; left thoracentesis, 1000 ml light yellow fluid aspirated. Tachycardia -persistent during the hospital course Severe constipation-resolved Severe sepsis -resolved Fever Severe iron deficiency anemia-received IV iron 02/25/2018 and 03/04/2018. He has had a total of 6 units of blood, he received his last unit 03/17/2018 Autism Dental problems Hypophosphatemia-resolved Hyperphosphatemia-on TPN Hypermagnesemia-on TPN-resolved Hypokalemia (Not POA) -resolved LLL atelectasis Acute kidney injury with oliguria-postop -resolved Hyperkalemia (Not POA) -resolved Thrombocytosis (Not POA) Left pleural effusion-status post thoracentesis of 1.1 L on 04/03/2018 Mild elevation of INR of 1.39 on 03/19/2018 Plan Regarding peritonitis and abdominal abscesses, Dr. Ac stopped IV Zosyn yesterday and started oral Cipro and Flagyl. He will continue on oral fluconazole. She would recommend repeat CT scan in about [address] Gomez has seen the patient and from a surgical standpoint he is stable for dismissal and a follow-up appointment has been scheduled. I did talk with the patient's piano case maker, she has spoken with the patient's parents and they are trying to determine if a can arrange to have caregivers in their home so that he could return home with them. If he does go home he would have home health. If they decide that this is not an option, case management will look into other options for nursing homes. Repeat CBC and renal panel tomorrow. Continue metoprolol for now. DVT Prophylaxis: SCD's, Lovenox GI Prophylaxis: Protonix Resuscitation Status: Full Code - Physician Narrative Narrative: Date: 04/03/18 Time: 0854 Hospital Course Summary Disclaimer: The visit summary below is not to be considered part of the above Progress Note. Hospital Course: 02/20/18 Admit, CCU. Bowel rest - NPO. Cont IVF - 1/2 NS with Na of 144. Consult Dr. Gomez for mgt. Sx management with Protonix, morphine, Zofran. Cont IVF for tachycardia; sepsis. Repeat lactate. Cont Zosyn for bowel coverage. Follow BC results. Iron w/u in progress. Type & screen ordered. D/W with Dr. Stevens and RN. 02/22/18 Gastrografin enema 02/21 with copious stool resulting. However, still with stool in rectal vault. Deferring further management to surgery team, await recs. Cont Zosyn given bandemia, tachycardia and concern for toxic megacolon. 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 Clinically deteriorating. Going for surgery for perforation/free air. Near total colectomy performed. Became hypotensive, tachycardic with rates into 180s. Aggressively fluid resuscitated. 02/24/18 UOP, tachycardia improved. Cont abx. Initiate TPN. Monitoring for return of bowel fxn. 02/25/18 Given Kphos Transfused another 1U PRBCs. Stopped LR. Surgery to trial clamping NGT. Intermittently febrile- rectal Tylenol. 02/26/18 Did have fever overnight. Has tolerated NGT clamping. No O2 requirements. No N/V /CP. Hasn't been able to perform IS very well. 02/27/18 Remains on TPN, tolerating limited oral liquids earlier today however resultant emesis has required resumption of NG suction. Good output per ostomy; 2400 mL output reported during prior 24-hour period. Hemoglobin drifting down, ongoing hypokalemia-post being reassessed this afternoon. Potassium increased and TPN but may require supplemental boluses due to potassium lost in stool and emesis. Persistent tachycardia-may require additional blood transfusion. Remains on Zosyn for peritonitis; chest x-ray with pleural effusion but no evidence of pneumonia. May require repeat CT abdomen/pelvis to exclude intra-abdominal abscess. 02/28/18 Remains on TPN, electrolytes stable. Good urine output per ostomy but continues to have high volume output per NG. Output significantly higher than input, weight down, ongoing tachycardia--> 1 L fluid bolus tonight. Anticipate ongoing need for fluids to match fluid losses. CT abdomen/pelvis discussed with radiology this evening and subsequently with Dr. Hills; will review further with radiology tomorrow to determine if drainage can be performed of the subphrenic abscess percutaneously or if surgical drainage/washout will be needed due to presence of multiple smaller fluid collections suggestive of early abscesses. Dr. Hills notified patient 's parents of findings. Hemoglobin continues to drift down very slowly, may be slightly hemoconcentrated at present. Type and screen in a.m. Anticipating transfusion in the next 1-2 days. 03/01/18 OP Day - Exploratory laparotomy, drainage of multiple intraabdominal abscesses, fecal disimpaction, intraoperative flexible proctoscopy. Subdiaphragmatic abscess and left upper quadrant-discussed with radiology and message subsequently relayed to Dr. Hills regarding potential risk of percutaneous drainage. Patient tenably scheduled to return to the operating room later today. Several very small extensive gas in the pelvis without clear room enhancement to suggest abscess, may simply be postoperative change. Remains on TPN, electrolytes stable. Good urine output per ostomy but continues to have high volume output per NG. Output significantly higher than input, weight down, ongoing tachycardia--> 1 L fluid bolus this a.m. and continue normal saline at 100 mL per hour. 2 units PRBCs matched preoperatively; one being given prior to surgery for hemoglobin 7.4. 03/02/18 s/p ex lap with placement of drains by Dr. Hills. Febrile before surgery. WBC up post-op. Wound cx growing GPC, GNR, GPR. Continue Zosyn Remains on TPN, reduce K+. Good urine output. Output per NG down. Continued tachycardia. Continue IVF and treat pain. Output significantly higher than input, weight down, ongoing tachycardia--> 1 L fluid bolus this a.m. and continue normal saline at 100 mL per hour. Anticipate ongoing need for fluids to match fluid losses. 1 unit PRBCs given 03/01. Total of 4 units transfused Ferrlecit dose given 02/25, plan to repeat dose 03/04. Discussed with nursing who provide supplemental history; mother updated. Prognosis guarded. 03/03/18 s/p ex lap 03/01 with placement of drains by Dr. Hills. Afebrile and WBC down. Wound cx growing GPC, GNR, GPR. Continue Zosyn and fluconazole Continue TPN, K+ improved. Good urine output. Output per NG and ostomy down since 03/01 ex lap. Continued tachycardia. Continue IVF and treat pain. ? whether anxious. Trial of Ativan Anticipate ongoing need for fluids to match fluid losses. 1 unit PRBCs given 03/01. Total of 4 units transfused Ferrlecit dose given 02/25, plan to repeat dose 03/04. Discussed with nursing who provide supplemental history; mother updated. Prognosis guarded. 03/04/18 s/p ex lap 03/01 with placement of drains by Dr. Hills. Fever and WBC up slightly. Wound cx growing e coli, sensitive to Zosyn. Fluconazole. Check CXR Continue TPN, K+ improved. Good urine output. Output per NG and ostomy down since 03/01 ex lap. Continued tachycardia. Hold LR as patient with trace edema. Start fentanyl patch for pain. He got 28 mg iv morphine yesterday. Starting fentanyl at 12mcg d /t possible interaction with Fluconazole. 1 unit PRBCs given 03/01. Total of 4 units transfused Ferrlicit dose given 02/25, plan to repeat dose 03/04. Discussed with nursing who provide supplemental history. Encourage activity. Prognosis guarded 03/05/18 s/p ex lap 03/01 with placement of drains by Dr. Hills. Wound VAC. Fever. WBC down slightly. Wound cx growing e coli, sensitive to Zosyn. Fluconazole. Check CXR. Continue TPN, decrease Mg. Good urine output. Output per NG up yesterday. Continued tachycardia. Holding LR as patient with trace edema. Appears more comfortable with fentanyl patch for pain. Platelets trending up. Check inflammatory markers. If continued fever, consider repeating CT Encourage activity. 03/06/18 Temp elevations to 100.5 - 101.7. Persistent tachycardia in 130s. BP 100's. WBC with gradual trend down to 17.9 - was 25.0 on 03/02. Platelets trending up to 971 (was 407 on 03/02). Electrolytes and renal status stable - on TPN. Will continue with Zosyn and Diflucan for antimicrobial coverage. Continue with wound vac and drains. CT scan of ab/pelvis to exclude occult abscess formation. Encourage continued activities. 03/07/18 WBC with gradual trend down to 14.3 - was 17.9 on yesterday. Platelets elevated at 961 (was 971 yesterday). Hemoglobin persistently low at 7.6; with continued tachycardia will give 1 unit of pRBC. Electrolytes and renal status stable - on TPN. Will continue with Zosyn for antimicrobial coverage; Dr Gomez added Vancomycin and increased Diflucan to 200mg daily. Continue with wound vac and drains. CT scan of ab/pelvis showed possible new abscess formation in the suprapubic region and omental area. Encourage continued activities. 03/08/18 WBC with increase back to 17.1. HGB increased to 8.2 post transfusion yesterday. Pharm recommended changing Zosyn to Meropenem - did agree. Continue vancomycin and Diflucan. Will continue with TPN for nutritional support - NS bolus of 500cc to help with tachycardia. Continue with pain control. 03/09/18 Temp elevations continue. WBC with decrease to 15.6, but increased bands noted. Renal status and electrolytes stable. Continues of Meropenem, vancomycin, and Diflucan for coverage. Dr Gomez plan repeating CT scan with contrast (though NG) tomorrow to check for bowel function and further abscesses. TPN for nutritional and volume support. Continue with MS for pain, add Aspercreme for muscle discomfort. 03/10/18 Temp elevations continue. WBC 16.4. Renal status and electrolytes stable. Little change in overall status. CT ab/pelvis shown abscess with drain in place, however abscess has increased in size. Sx working to have drains flushed. Continues on Meropenem, vancomycin, and Diflucan for coverage. TPN for nutritional and volume support. Will give 500cc NS bolus to help improve BP. 03/11/18 Temp elevations continue. WBC trended down to 14. Renal status and electrolytes stable. Little change in overall status. CT ab/pelvis shown abscess with drain in place, however abscess has increased in size. Sx working to have drains flushed. Continues on Meropenem, vancomycin, and Diflucan for coverage. TPN for nutritional and volume support. Repeat 500cc NS bolus today and add metoprolol for tachycardia as BP allows. Continue pain control. 03/12/18 Temp elevations continue. WBC trended down to 12.7. Renal status and electrolytes stable. Little change in overall status. CT ab/pelvis shown abscess with drain in place, however abscess has increased in size per CT 03/10/18. Sx working to have drains flushed. Continues on Meropenem, vancomycin, and Diflucan for coverage. TPN for nutritional and volume support. Added q12hr metoprolol in attempt to control heart rate, only marginally working and could be titrated if blood pressure allows. Continue pain control. 03/13/18 WBC with trend down, but still with tachycardia and intermittent temp elevations. Continues on Meropenem, vancomycin, and Diflucan for coverage. TPN for nutritional and volume support. Continue pain control. 03/14/18 WBC with elevation to 13.4. CT showing decrease size of abscess. Continues on Meropenem, vancomycin, and Diflucan for coverage. TPN for nutritional and volume support. Electrolytes and renal status stable. Continue pain control. Continue activities as able. 03/15/18 WBC with stable at 13.7. Platelets with decrease to 594. Less temp elevations seen. Continues on Meropenem, vancomycin, and Diflucan for coverage. TPN for nutritional and volume support. Electrolytes and renal status stable. Dr Gomez trying NG clamping and clear liquids. Continue pain control. Continue activities as able. 03/16/18 WBC with decrease to 11.7. Platelets with decrease to 546. Less temp elevations seen. Continues on Meropenem, vancomycin, and Diflucan for coverage. TPN for nutritional and volume support. Electrolytes and renal status stable. NG removed; clear liquids. 03/17/18 WBC with decrease to 10.1. Platelets with decrease to 529. Less temp elevations seen. Evaluated by Dr Ac today - vancomycin stopped and changed meropenem to Zosyn and continued Diflucan. TPN for nutritional and volume support. Electrolytes and renal status stable. Advanced to regular diet but oral drive low. HGB variable, but trend down. Will give 1 unit pRBC due to continued tachycardia in post op patent. Continue pain control. Continue activities as able - walking in halls with nursing help. 03/18/2018 White blood cell count today is up mildly to 12.1. Bands are up to 7 from one yesterday. He has been afebrile over 24 hours. Hemoglobin improved to 9.5 up from 7.1 yesterday. He received 1 unit of blood yesterday. He does have mildly elevated phosphorus and magnesium. Discussed with pharmacy. The rate of his TPN will be decreased. Will recheck phosphorus and magnesium tomorrow. Repeat INR tomorrow. Repeat CBC and renal panel tomorrow. Advance diet as tolerated. Will try oral supplements. Continue ambulation with assist. The patient continues to have persistent tachycardia this hospital course, but rate is slowly improving. No real change with transfusion of 1 unit of blood. Recheck C-reactive protein tomorrow Discussed case with CCU nursing. We'll check a vitamin B-12 tomorrow regarding borderline low B-12 level Greater than 40 minutes of critical care time spent seeing and evaluating the patient in determining care plan. 03/19/2018 White blood cell count continues to increase and is 16.5 today. Bands are 6 down from 7 yesterday. Hemoglobin has improved to 10.9. Patient remains afebrile. C-reactive protein has decreased from 181 down to 75. We'll continue on fluconazole and Zosyn for intra-abdominal abscesses. Advance diet as tolerated. Continue TPN for now, he will receive a customized formula with no phosphorus and decreased magnesium and calcium. Continue ambulation with assist Recheck CBC with manual differential, renal panel, magnesium tomorrow. 03/20/2018 White blood cell count continues to increase and is 18.8 today from 16.8 yesterday. Bands are 1 down from 6 yesterday. Temperature currently is 99.9. Dr. Gmoez has ordered CT abdomen with contrast. The patient is currently on day 4 of Zosyn. He has been on fluconazole since at least February 23. Meropenem was discontinued March 18. Continue TPN for now, he is on a customized formula. Continue ambulation with assist Recheck CBC with manual differential, renal panel, magnesium tomorrow. Discussed with the patient's nurse and family. 03/21/18 CT abdomen with contrast obtained yesterday and shows a decrease in size of the intra-abdominal abscesses with no new abscess formation. White count is essentially stable from yesterday. The patient remains afebrile. He continues on fluconazole which was started February 23 and Zosyn which was started March 17. Prior to being on Zosyn, he was on meropenem but this was discontinued March 18 He continues to have tachycardia, but urine output remains stable. Fluid boluses in the past have not improved tachycardia. He does not appear to be in pain or anxious at this time. He is on fentanyl patch for pain and has when necessary medication for pain and anxiety. Will check TSH and reflex T4. 03/22/18 Stable, TSH normal. Mcdermott catheter discontinued. Pain well-controlled; taking by mouth well. 03/23/18 Oral intake improving, has been on a regular diet for approximately 5 days now and is eating meals well. Will discuss tapering TPN off with surgery. Renal function, hemoglobin, and blood pressure all stable. Persistent tachycardia, patient tolerates well-does not respond to additional fluids and patient does not appear to be in pain. Continue fluconazole and Zosyn-antibiotics under the management of Dr. Ac. 03/24/18 Discontinuing TPN today; stable to transfer out of ICU. Otherwise stable. 03/25/18 Doing well, TPN discontinued yesterday. Blood sugars stable following discontinuation of TPN. Accu-Cheks DC'd. 03/26/18 Stable, no change in therapy. 03/27/[address] Ac - Continue Zosyn and fluconazole. He will need at least 2 weeks of antibiotics, but he might require more. I would recommend repeat CT in a couple weeks to make sure the abscesses are resolved before stopping antibiotics. Will change the fluconazole to po. WBC normal. Hgb 8.9. CRP increased to 112.6 but peaked at 182 earlier in the month. Ongoing tachycardia - cortisol level normal at 16. Trial low-dose beta eugene ( metoprolol 6.25 mg twice a day) to suppress tachycardia. 03/28/[address] doing well. Heart rate with slight decrease since starting metoprolol. Continue with Zosyn and fluconazole. Continue with wound vac and drains. Encourage ambulation to help strength. 03/29/19 Continue with Zosyn and fluconazole. Continue with wound vac and drains - anticipate repeat CT tomorrow. Will give IV Iron due to low iron levels - discussed with Pharm. Will have dose today, 03/31, and 04/03. 03/30/18 Continues to work well this therapy. Oral drive stable. CT showing unchanged abdominal and pelvic surgical drains with further decreased size of the left subdiaphragmatic fluid collection and essential resolution of the additional previously noted collections within the left paracolic gutter and peripancreatic region. Drain and wound vac care as per surgery. Dr. Hills will review report from CT today before pulling drains and deciding if midline incision can be closed. Continue with Zosyn and fluconazole for antimicrobial coverage. Increase metoprolol to 12.5mg BIDWM to help tachycardia. BP stable. 03/31/18 Clinically doing well. Lab stable. Strength and functional status improving. Dr Ac recommends changing from Zosyn to ciprofloxacin 500mg BID and metronidazole 500md BID in conjunction with oral Diflucan. Will change antibiotics and monitor clinical response off IV antibiotics. Continue drain and wound vac care as per surgery. Little change in heart rate with increased metoprolol - will continue to monitor. 04/01/18 Continue ciprofloxacin 500mg BID and metronidazole 500md BID in conjunction with oral Diflucan for antimicrobial coverage. Clinically and biochemically tolerating this change well. Continue drain and wound vac care as per surgery. HR and BP stable. Can discontinue tele. 04/02/18 Continue ciprofloxacin 500mg BID and metronidazole 500md BID in conjunction with oral Diflucan for antimicrobial coverage. Continue drain and wound vac care as per surgery. NPO tonight for possible drain removal/wound vac closure tomorrow. Encourage activities and ambulation. 04/03/18 OP DAY: Delayed closure midline incision; left thoracentesis, 1000 ml light yellow fluid aspirated. Continue abx -- changed to IV route d/t possible surgical intervention today. CRP increased to 124 but WBC is normal at 7.9 and he is afebrile. Platelet count back to normal range today. 04/04/18 Continue IV abx per Dr. Ac -- she recommends IV abx while he is in the hospital except for fluconazole. Currently on Zosyn. WBC 7.3. Afebrile. Pleural fluid studies pending.
--- NOTE | 2018-04-06 15:20 | Progress Note ---
DATE OF SERVICE 04/06/2018 FINDINGS Cosmo was seen earlier today on rounds. He was eating a regular breakfast. He was without complaints. PHYSICAL EXAM VITAL SIGNS: Afebrile, normotensive. ABDOMEN: Soft, nontender. LABORATORY/RADIOGRAPHIC EVALUATION Patient had a CBC today that was unremarkable. Hemoglobin stable at 10.2. White count stable at 6000. ASSESSMENT 32-year-old gentleman status post exploratory laparotomy x 2 secondary to colonic perforation and development postoperative intraabdominal abscesses. Patient currently doing quite well. PLAN Still making arrangements for Cosmo to be discharged to home. Will continue with current care currently. I am pleased with the patient's progress. SYLVAIN
[2018-04-07] MEDS: PANTOPRAZOLE 40 MG TABLET PO SCH (06:33)
[2018-04-07] MEDS: CIPROFLOXACIN 500 MG TABLET PO SCH (08:59)
[2018-04-07] MEDS: ENOXAPARIN 40 MG/0.4 ML INJECTION SQ SCH (09:00)
[2018-04-07] MEDS: FLUCONAZOLE 100 MG TABLET PO SCH (09:01)
[2018-04-07] MEDS: MetroNIDAZOLE 500 MG TABLET PO SCH (09:01)
[2018-04-07] MEDS: SALINE FLUSH 10ml SYRINGE IVF PRN (10:08)
--- NOTE | 2018-04-07 10:47 | Wound Care Progress Note ---
Wound Center Progress Note: Pt seen for wound/ostomy follow up. Pt lying in bed, no complaints of pain. Midline abd/chest incision: healing, crusting, no drainage, bandage on superior aspect, the rest of incision is BHUMIKA. RLQ colostomy: pouching system intact without leaks, moderate greenish brown semi-formed stool in pouch. Spoke with Angelica avila about ordering ostomy supplies for pt. Spoke to nursing staff regarding encouraging parents to participate in ostomy care while pt is in the hospital to prepare for pt discharge.
[2018-04-07 10:53] VITALS: BMI 18.6
--- NOTE | 2018-04-07 13:29 | Discharge Summary ---
Discharge Information Date of admission: 02/20/18 17:02 Anticipated date of discharge: 04/07/18 Attending Physician: Julianne Peace MD Primary care physician: Erik Donahue MD Consults: Dr. Nuno Gomez, general surgeon Dr. Tana Ac, infectious disease specialist - Discharge Diagnosis (1) Megacolon Status: Resolved (2) Perforation of colon Status: Acute 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 On meropenem 03/08-03/17, Vancomycin 03/07-03/17; Zosyn initiated on March 18. -04/03/18 Delayed closure midline incision; left thoracentesis, 1000 ml light yellow fluid aspirated. Tachycardia -persistent during the hospital course Severe constipation-resolved Severe sepsis -resolved Fever Severe iron deficiency anemia-received IV iron 02/25/2018 and 03/04/2018. He has had a total of 6 units of blood, he received his last unit 03/17/2018 Autism Dental problems Hypophosphatemia-resolved Hyperphosphatemia-on TPN Hypermagnesemia-on TPN-resolved Hypokalemia (Not POA) -resolved LLL atelectasis Acute kidney injury with oliguria-postop -resolved Hyperkalemia (Not POA) -resolved Thrombocytosis (Not POA) Left pleural effusion-status post thoracentesis of 1.1 L on 04/03/2018 Mild elevation of INR of 1.39 on 03/19/2018 Urinary incontinence post Mcdermott catheter removal Mild cellulitis of the left external ear, mostly involving the earlobe-noted on day of discharge - Procedures Procedures: 02/23/18 Surgeon: Patricia Enrollment Management Coordinator: Nadeem Manning APRN Postoperative Diagnosis: Ischemic colitis with sigmoid colon perforation Procedure: Exploratory laparotomy with near total colectomy, evacuation of massive rectal stool impaction, and creation of end colostomy 03/01/18 Surgeon: Reinier Anesthesia: General Inhalation Gases ASA Score: 3 Postoperative Diagnosis: Multiple intraabdominal abscesses, fecal impaction Procedure: 1. Exploratory laparotomy 2. Drainage of multiple intraabdominal abscesses 3. Fecal disimpaction 4. Intraoperative flexible proctoscopy 04/03/18 Surgeon: Patricia Enrollment Management Coordinator: Nadeem Manning APRN Postoperative Diagnosis: left pleural effusion,. post operative midline incisional wound Procedure: left thoracentesis, 1000 ml light yellow fluid aspirated. Delayed closure midline incision. 02/23/2018 PICC line placement - Laboratory Labs: 04/07/18 04:29 04/07/18 04:29 On admission white count 14.4, hemoglobin 7.5, platelets 363 Iron 11, TIBC 342, percent saturation 3, ferritin 2.44 which is very low. Vitamin B-12 367 INR was mildly elevated ranging from 1.39-1.56 TSH was normal at 2.66 Pre-albumin was 13.6 on 04/03/2018 B-12 on 03/19/2018 was greater than 1000. B-12 on 02/20/2018 was 367 Cortisol on 03/25/2018 was 16.0 - Microbiology Microbiology 04/03/18 18:25 Pleural Fluid Fungal Culture and Stain - Preliminary 04/03/18 18:25 Pleural Fluid Gram Stain - Final 04/03/18 18:25 Pleural Fluid Body Fluid Culture - Preliminary No Growth After 2 Days 03/01/18 18:56 Abdomen, Left Upper Gram Stain - Final 03/01/18 18:56 Abdomen, Left Upper Surgical Culture - Final Escherichia coli-resistant to ampicillin, sensitive to all other antibiotics tested Anaerobic Gram-Negative Bhanu Anaerobic Gram-Positive Cocci 02/23/18 20:15 Peripheral/Iv Start Gram Stain - Final Not performed 02/23/18 20:15 Peripheral/Iv Start Blood Culture - Final No Growth After 5 Days 02/23/18 20:05 Peripheral/Iv Start Gram Stain - Final Not performed 02/23/18 20:05 Peripheral/Iv Start Blood Culture - Final No Growth After 5 Days 02/20/18 20:07 Peripheral/Iv Start Blood Culture - Final No Growth After 5 Days - Radiology Radiology: The patient had multiple CT abdomen and chest x-rays. Please refer to the record for over official reports. Below are his last CAT scan and last chest x- ray reports EXAM: CT abdomen pelvis w con DATE: 03/30/2018 7:00 AM INDICATION: F/U intra-abdominal abscesses COMPARISON: 03/20/2018, 03/14/2018, 03/10/2018, 03/06/2018, 02/28/2018 TECHNIQUE: CT of the abdomen and pelvis with IV contrast. The patient received 67 mL of Omnipaque 300 without complication. Coronal and sagittal reformatted images were performed. The current CT scan was performed using radiation dose-reduction techniques. Pertinent findings (please see complete report for further details) Lower Chest: Similar moderate left pleural effusion with associated near complete relaxation atelectasis of the left lower lobe. The heart is normal in size without pericardial effusion. Abdomen: No intraperitoneal free air. Unchanged abdominal and pelvic surgical drains with interval further decreased size of the left subdiaphragmatic fluid collection, now measuring 5.7 x 2.7 cm (previously 6.5 x 3.6 cm). No lymphadenopathy. GI tract: The stomach, small bowel, and colon appear grossly unchanged with redemonstration of a right lower quadrant colostomy. The appendix is not seen with certainty. No pelvic free fluid. No pelvic lymphadenopathy. IMPRESSION: 1. Unchanged abdominal and pelvic surgical drains with further decreased size of the left subdiaphragmatic fluid collection and essential resolution of the additional previously noted collections within the left paracolic gutter and peripancreatic region. 2. Persistent moderate left pleural effusion with near complete relaxation atelectasis of the left lower lobe. Date of Exam: 04/03/18 Type of Exam(s): XR chest post-procedure 1V Reason for Exam(s): post left thoracentesis Findings: Interval left thoracentesis with decrease in pleural fluid and no visible pneumothorax. Right PICC line remains in place. The prior nasogastric tube and surgical drains have been removed. Mild left basilar atelectasis remaining. Right lung is grossly clear. Heart size and mediastinal contours are within normal limits. Pulmonary vascularity is normal. Impression: No visible pneumothorax following left-sided thoracentesis. - Pathology Segments of colon from the transverse and splenic flexure, proximal rectum, and hepatic flexure, all reveal no atypia or neoplasm identified History of Present Illness HPI: Arslan Albright is a 32 y/o male with autism and a hx of toxic megacolon. Per report , this morning he woke up with abdominal pain and didn't want to eat anything - this was unusual for Arslan. He was incontinent of urine and stool, also atypical for him. There were no reports of fever/chills, n/v. Every ROS asked of Arslan was positive. He was sent to the ED, CT scan showed: "1. Severe fecal impaction/obstipation with a large amount of stool within the rectum and left colon. 2. Stool filled rectosigmoid colon displaces the bladder anteriorly and to the right. 3. Moderate gas and stool within the transverse and right colon." WBC was elevated at 14.4, and he was anemic with hgb of 7.5. Lactate was elevated at 2.5. UA was neg. He received a liter of NS and zosyn was initiated. He received morphine for pain. He was tachycardic with rates up to 156 - after 1L IVF his rate improved to the 130s. BP was stable. He was afebrile. Dr. Stevens was notified and the patient was admitted to inpatient status, placed in the CCU. Objective Vital signs: Temperature 97.1 F 04/07/18 08:49 Pulse Rate 112 H 04/07/18 12:00 Respiratory Rate 18 04/07/18 08:49 Blood Pressure 108/67 04/07/18 12:00 Pulse Oximetry 95 04/07/18 08:49 Rhythm: Sinus Tachycardia Height/Weight/BMI: Height 1.75 m Weight 57.3 kg Body Mass Index 18.6 Comments: Exam note 04/07/2018 Afebrile, heart rate 94-106, blood pressure 108/67, O2 sat 96% on room air, respirations 14 Arslan is alert and in no acute distress. He denies any pain. He is rubbing on his left earlobe. He has some erythema of the earlobe. There is no swelling. The skin does look irritated and it looks like he's been rubbing it. He does not appear to have any redness or swelling the mastoid. No lymphadenopathy. Neck is supple. He will not allow me to look in his ear. Chest is clear to auscultation. Cardiovascular reveals a borderline tachycardic rate with irregular rhythm. Abdomen is soft and nontender. His midline incision in his abdomen is well approximated and without erythema or drainage. Ostomy appears to be functioning well. Extremities are free of edema. Skin is warm and dry and without rashes. Hospital Course This is a general summary of the patient's hospital course. For more details refer to the complete medical record. Hospital course: This is a brief synopsis of the patient's prolonged hospital stay. Please refer to the chart for more specifics. The patient was admitted on 02/20/2018 with toxic megacolon, severe sepsis and severe microcytic anemia found to be iron deficiency anemia. He was placed on bowel rest and Dr. Gomez was consulted. On 02/21/2018 the patient had Gastrografin enema with copious stool resulting. 02/23/2018, the patient had clinical deterioration and developed colonic perforation with free air. He was taken to the OR and underwent exploratory laparotomy, transverse colectomy, left hemicolectomy, and creation of end colostomy and Hutchinson's pouch. He became hypotensive and tachycardic and was given aggressive fluid resuscitation. The patient was placed on broad-spectrum antibiotics and Diflucan for peritonitis. Her Ac was consulted regarding antibiotic recommendations with his peritonitis and intra-abdominal abscesses. The patient was on TPN for the majority of the hospital stay for nutrition. On 03/01/2018 the patient went back to the OR for exploratory laparotomy, drainage of multiple intra-abdominal abscesses, fecal impaction, and intraoperative flexible proctoscopy. Drains were also placed intraoperatively. Wound VAC placement 03/02/2018 Regarding iron deficiency, the patient was given IV iron. Reguarding anemia, the patient was given a total of 6 units of packed red cells. Last transfusion was on 03/17/2018 The patient had tachycardia during the majority of the hospital stay which after resolution of sepsis, dehydration, and anemia, was no longer responsive to fluid boluses. TSH was normal. Cortisol level was normal. The patient was placed on low-dose beta eugene. He appeared to be asymptomatic regarding his tachycardia. The patient does have severe autism which limited his ability to communicate with his caregivers during his hospital course. On 04/03/2018 the patient underwent delayed closure of midline incision, left thoracentesis was also performed with 1000 mL's of light yellow fluid aspirated. Wound VAC was then removed. 04/05/2018 Dr. Ac changed his antibiotics to oral Cipro 500 mg by mouth twice a day, Flagyl 500 mg by mouth twice a day, and continue on oral fluconazole. She did recommend repeat CT abdomen in about 2 weeks. On 04/07/2018 was felt that the patient was stable for dismissal to home. Initially, we did consult several nursing homes for halfway care, but ultimately it was decided that he did not have enough skilled needs to qualify for halfway. His parents did feel that they were capable of taking care of him at home. They had undergone training to care for his ostomy. They will have family available so that Arslan will have 24-hour supervision. He will be discharging with home health. On the day of discharge, it was noted that Arslan had some erythema of his left earlobe with some skin irritation. Will be placed on Keflex 500 mg twice daily for 7 days for mild cellulitis. The patient will follow-up at Dr. Gomez's office on April 14 for suture removal and CT. The patient will follow-up with Dr. Ac in 2 weeks. The patient will be given a 20 day prescription for Diflucan, ciprofloxacin, and metronidazole for his abdominal abscesses. The length of time he will need antibiotics can be adjusted by Dr. Ac. Time spent with patient: discharge greater than 30 minutes Resuscitation Status: Full Code Discharge Plan - Discharge Disposition Disposition: Home Health Service *Condition: Stable Reason For Visit (Visit label in EMR): toxic megacolon - Discharge Medications *Discharge Medications: New CephALEXin [Keflex 500 mg] 500 mg PO Q12HR 7 Days #14 cap Ciprofloxacin [Cipro 500 mg] 500 mg PO Q12HR #40 tab Acetaminophen 325 mg PO Q4H PRN #1 tab PRN Reason: Pain Fentanyl [Duragesic] 12 mcg TD Q3D #10 patch.td72 Fluconazole [Diflucan 100 mg Tablet] 200 mg PO DAILY #20 tab Metoprolol Tartrate [Lopressor] 12.5 mg PO BIDWM #60 tab Pantoprazole Tab [Protonix Tab] 40 mg PO ACB #30 tab FentaNYL PATCH REMOVAL [Duragesic Patch Removal] 1 removal TD Q3D #0 patch MetroNIDAZOLE [Flagyl] 500 mg PO BIDWM #40 tab - Discharge Packet/Instructions *Diet: Regular *Activity: Up walking at least 3 times a day with assist *Pain Management/Treatment: Fentanyl patch, can give acetaminophen as needed *Wound Care: Leave midline incision open to air. Wash daily with cleanser or soap and water. No whirlpool or tub baths. Additional Instructions: The patient can drink ensure shakes in place of a meal or snack. Routine colostomy care *Expected Signs/Symptoms: Mild fatigue *Notify Physician if: Fever, abdominal pain, vomiting, confusion, or any other concerning symptoms *During Business Hours Contact: Call Dr. Gomez's office *After Business Hours Contact: All [phone] Gomez paged *Pending Lab/Results: No Pending Lab - Referrals/Follow Up *Referrals/Follow Up: Nuno Gomez MD [Physician] - (April 14 at 10:45 for suture removal in Dr. Gomez's office, then go to [facility] radiology at 11:[address] abdomen pelvis) Tana Ac MD [Physician] - 2 Weeks Erik Donahue MD [Primary Care Provider] - 1 Week - Patient Handouts Patient Handouts: Colostomy Care (DC), Exploratory Laparotomy (DC), Abscess Incision and Drainage (DC) - Dismissal Complete Discharge Instructions are:: Complete Physician Narrative - Narrative Attestation Narrative: Date: 04/07/18 Time: [id number]
[2018-04-07 16:10] VITALS: BP 103/69; PULSE 105; RESP 18; TEMP 98.3; O2SAT 97
[2018-04-07] MEDS ORDERED: MetroNIDAZOLE 500 MG TABLET PO SCH (17:30)
--- NOTE | 2018-04-08 13:56 | Right on Track Program ---
Right on Track Program Date of Discharge: 04/07/18 Home Medications: Previous Rx's Medication Instructions Recorded Acetaminophen 325 mg PO Q4H PRN #1 tab 04/07/18 CephALEXin [Keflex 500 mg] 500 mg PO Q12HR 7 Days #14 cap 04/07/18 Ciprofloxacin [Cipro 500 mg] 500 mg PO Q12HR #40 tab 04/07/18 FentaNYL PATCH REMOVAL [Duragesic 1 removal TD Q3D #0 patch 04/07/18 Patch Removal] Fentanyl [Duragesic] 12 mcg TD Q3D #10 patch.td72 04/07/18 Fluconazole [Diflucan 100 mg 200 mg PO DAILY #20 tab 04/07/18 Tablet] Metoprolol Tartrate [Lopressor] 12.5 mg PO BIDWM #60 tab 04/07/18 MetroNIDAZOLE [Flagyl] 500 mg PO BIDWM #40 tab 04/07/18 Pantoprazole Tab [Protonix Tab] 40 mg PO ACB #30 tab 04/07/18 - Right on Track Program Phone call Date: 04/08/18 Right on Track Program: 24 Hour Follow-Up Discharge Summary Received: Yes Care Plan Received: Yes Follow Up: Follow Up Appointment Scheduled Education: Diagnosis Education Reviewed Referral: Primary Care Physician, Home Health Comments: I spoke with Anni on 04/08/18. She believes Arslan is doing well, but can't always tell if he's in pain or not. He sat outside for a while today which went well. He's been eating and drinking without problems. He's been walking without appearing dizzy. She denied any questions on discharge instructions. She was able to get all of his Rx filled. Multiple f/u appts have been scheduled. Discussed With Patient and Caregiver: Yes Recommendations For Follow-up: 1. Continue HH 2. F/U with Dr. Gomez, Dr. Ac, and Dr. Donahue 3. Home visit on 04/12/18 at 0800 Home visit Date: 04/12/18 Right on Track Program: 7-14 Day [id number] Discharge Summary Received: Yes Care Plan Received: Yes Follow Up: Follow Up Appointment Scheduled Education: Diagnosis Education Reviewed, Education Provided To Caregiver Referral: Primary Care Physician Comments: I visited Arslan at his home in [place] on 04/12/18. His mother, Anni, was also present. Arslan was more vocal and interactive compared to when he was in the hospital. He was relaxing in a recliner, watching television. He stated that his abdomen was painful. His mother believes that the fentanyl patch has been helpful. He's been eating and drinking well, and has had good stool output. He has been active and walking through the house. He has not had fevers. His mother confirmed that he is on the antibiotics as Rx. He has an appt with Dr. Gomez on 04/14. Overall, his mother feels that he's doing well and doesn't have any concerns at this point. Exam: Gen: NAD, A&O x3, pleasant HEENT: No thrush CV: RRR, HR 80 Lungs: CTAB Abd: Arslan did not want me to palpate. His incisions are healing well without erythema, drainage, or swelling. There are a few sutures in the distal aspect of his midline incision. He had stool in the ostomy bag. Ext: No swelling Recommendations For Follow-up: F/U with Dr. Gomez as planned I called Dr. Ac' office and made an appt with her for 04/21 - they will call Anni to confirm Cont Home Health - Problems (1) Megacolon Code(s): K59.39 - Other megacolon Status: Resolved (2) Perforation of colon Code(s): K63.1 - Perforation of intestine (nontraumatic) Status: Acute
== END 2018-04-07 18:40 | disposition home health service (06) | DRG 853 ==
LOC: ED 14:42 → SUATTDRO 17:02 → EDHOLD 17:02 → CCU 17:45 → SRG 03-24 19:48
PROVIDERS: ADMIT Hospitalist; ATTEND Internal Medicine